=== PATIENT | female | born 1960 | race American Indian/Alaskan Native ===

== ENCOUNTER 2024-10-07 14:47 | Outpatient (AMB) | payer BC, SELFPAY ==
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
[2024-10-07 15:55] VITALS: BP 200/110; PULSE 79; RESP 16; TEMP 36.5; O2SAT 98; BMI 34.2
[2024-10-07 15:59] VITALS: BP 190/84
--- OUTSIDE RECORDS SUMMARY | 2024-10-07 18:13 | XMS_ITS | Encounter Summary ---
Author Organization [facility] and [facility] Address [address] [place] [phone] Care Team Providers Care Pooling Operator Name Role Phone Sal Jose MD Primary Care Provider [phone] Encounter Details Date Type Department Care Team (Late st Contact Info) Description 10/28/2023 Scanned Document [facility] at 800 [facility] 800 [place] [address] Joao Loredo MD 800 [place] [phone] Social History Tobacco Use Types Packs/Day Years Used Date Smoking Tobacco: Never Alcohol Use Standard Drinks/Week Comments Not Currently 0 (1 standard drink = 0.6 oz pur e alcohol) Comments Unknown Sex and Gender Information Value Date Recorded Sex Assigned at Not on file Legal Sex Female 7:18 AM EST Gender Identity Not on file Sexual Orientation Not on file documented as of this encounter Plan of Treatment Upcoming Encounters Date Type Department Care Team (Late Contact Info) Description 03/08/2025 12:00 PM EDT Follow Up Pulmonary Critical [place] 136 [facility] [address] [place], [place] [address] Ramon Nixon MD 136 [facility] 302 [place] [phone] 04/28/2025 1:45 PM EDT Follow Up [facility] Stroke 800 [place] [address] Kristine Kelly MD PhD 800 [place] [phone] 05/04/2025 1:00 PM EDT Follow Up Cardiovascular Medicine at 175 [facility] 175 [place] [address] Mike Hilario MD 175 [facility] 2 [place] [address] 07/20/2025 11:40 AM EST Follow Up Epilepsy & Seizures at 800 [facility] 800 [place] [address] Virgie Mast MD PhD 800 [place] [phone] documented as of this encounter Procedures Procedure Name Priority Date/Time Associated Diagnosis Comments CT RESULT SCAN Routine 02/15/2022 11:[address] RESULT SCAN Routine 02/15/2022 11:06 AM EDT MRI RESULT SCAN Routine 02/07/2022 11:23 AM EDT IR RESULT SCAN Routine 02/07/2022 11:[address] RESULT SCAN Routine 02/06/2022 11:[address] RESULT SCAN Routine 02/06/2022 11:26 AM EDT documented in this encounter Results * CT Result Scan (02/15/2022 11:09 AM EDT) Historical Provider IMG SCAN REPORTS Final Resul t * CT Result Scan (02/15/2022 11:06 AM EDT) Historical Provider IMG SCAN REPORTS Final Resul t * MRI Result Scan (02/07/2022 11:23 AM EDT) Historical Provider IMG SCAN REPORTS Final Resul t * IR Result Scan (02/07/2022 11:18 AM EDT) us Historical Provider IMG SCAN REPORTS Final Resul t * CT Result Scan (02/06/2022 11:32 AM EDT) us Historical Provider IMG SCAN REPORTS Final Resul t * CT Result Scan (02/06/2022 11:26 AM EDT) us Historical Provider IMG SCAN REPORTS Final Resul t documented in this encounter Visit Diagnoses Not on filedocumented in this encounter Care Teams Pooling Operator Relationship Specialty Start Date End Date Sal Jose MD [address] [phone] PCP - General Family Medicine 10/16/23 documented as of this encounter
--- OUTSIDE RECORDS SUMMARY | 2024-10-07 18:13 | XMS_ITS | Encounter Summary ---
Author Organization [facility] and [facility] Address [address] [place] [address] Care Team Providers Care Manager Client Support Name Role Phone Sal Jose MD Primary Care Provider [phone] Encounter Details Date Type Department Care Team (Late st Contact Info) Description 10/27/2023 Scanned Document CARE CENTER SCHEDULING [address] [place], [place] [address] Provider, Historical . [phone] (Fax) Social History Tobacco Use Types Packs/Day Years [...] Encounters Date Type Department Care Team (Late st Contact Info) Description 03/08/2025 12:00 PM EDT Follow Up Pulmonary Critical [place] 136 [facility] [address] [place] [address] Ramon Nixon MD 136 [facility] 302 [place] [phone] 04/28/2025 1:45 PM EDT Follow Up Stroke 800 [facility] [place] [address] Kristine Kelly MD PhD 800 [place] [phone] 05/04/2025 1:00 PM EDT Follow Up Cardiovascular Medicine at 175 [facility] 175 [place] [address] Mike Hilario MD 175 [facility] [address] [place] [phone] 07/20/2025 11:40 AM EST Follow Up Epilepsy & Seizures at 800 [facility] 800 [facility] [place] [address] Virgie Mast MD PhD 800 [place] [phone] documented as of this encounter Visit Diagnoses Not on filedocumented in this encounter Care Teams Manager Client Support Relationship Specialty Start Date End Date Sal Jose MD [facility] [address] [phone] PCP - General Family Medicine 10/16/23 documented as of this encounter
--- OUTSIDE RECORDS SUMMARY | 2024-10-07 18:13 | XMS_ITS | Encounter Summary ---
Author Organization [facility] Address Unknown Care Team Providers Care Formal Service Waiter Name Role Phone Sal Jose MD Primary Care Provider [phone] Encounter Details Date Type Department Care Team (Late st Contact Info) Description 08/27/2023 Scanned Document Pulmonary Critical [place] [address] [address] External, Provider Social History Tobacco Use Types Packs/Day Years Used Date Smoking Tobacco: Never Assessed Comments Unknown Sex and Gender Information Value Date Recorded Sex Assigned at Not on file Legal Sex Female 7:18 AM EST Gender Identity Not on file Sexual Orientation Not on file documented as of this encounter Plan of Treatment Upcoming Encounters Date Type Department Care Team (Late st Contact Info) Description 03/08/2025 12:00 PM EDT Follow Up Pulmonary Critical [place] 136 [facility] 302 [place] [address] Ramon Nixon MD 136 [facility] 302 [place] [phone] 04/28/2025 1:45 PM EDT Follow Up Stroke 800 [place] [address] Kristine Kelly MD PhD 800 [place] [phone] 05/04/2025 1:00 PM EDT Follow Up Cardiovascular Medicine at 175 [facility] 175 [facility] [place] [address] Mike Hilario MD 175 [facility] [address] 2 [place] [phone] 07/20/2025 11:40 AM EST Follow Up Epilepsy & Seizures at [address] [facility] [address] [facility] Lower [place], [place] [address] Virgie Mast MD PhD 800 [place] [phone] documented as of this encounter Procedures Procedure Name Priority Date/Time Associated Diagnosis Comments CARDIAC ECHO RESULT SCAN Routine 08/27/2023 documented in this encounter Results * Cardiac Echo Result Scan (08/27/2023) Provider External CV CARDIAC REPORT (CVR) Final Result documented in this encounter Visit Diagnoses Not on filedocumented in this encounter Care Teams Formal Service Waiter Relationship Specialty Start Date End Date Sal Jose MD 1033 [facility] [address] [place] [phone] PCP - General Family Medicine 10/16/23 documented as of this encounter
--- OUTSIDE RECORDS SUMMARY | 2024-10-07 18:13 | XMS_ITS | Encounter Summary ---
Author Organization [facility] and [facility] Address [address] [place] [address] Care Team Providers Care Inclusion Special Education Teacher Name Role Phone Sal Jose MD Primary Care Provider Encounter Details Date Type Department Care Team (Late st Contact Info) Description 08/14/2023 Transcribed Orders EXTERNAL REFERRAL SOURCE 20 [place] [address] Referral, Self Social History Tobacco Use Types Packs/Day Years [...] EDT Follow Up Pulmonary Critical [place] 136 [facility] 302 [place] [address] Ramon Nixon MD 136 [facility] 302 [place] [phone] 04/28/2025 1:45 PM EDT Follow Up Stroke 800 [place] [address] Kristine Kelly MD PhD 800 [place] [phone] 05/04/2025 1:00 PM EDT Follow Up Cardiovascular Medicine at 175 [facility] 175 [place], [place] [address] Mike Hilario MD 175 [facility] 2 [place] [phone] 07/20/2025 11:40 AM EST Follow Up Epilepsy & Seizures at 800 [facility] 800 [facility] Lower [place], [place] [address] Virgie Mast MD PhD 800 [place] [phone] documented as of this encounter Visit Diagnoses Not on filedocumented in this encounter Care Teams Inclusion Special Education Teacher Relationship Specialty Start Date End Date Sal Jose MD [address] [place] [phone] PCP - General Family Medicine 10/16/23 documented as of this encounter
--- OUTSIDE RECORDS SUMMARY | 2024-10-07 18:13 | XMS_ITS | Encounter Summary ---
Author Organization [facility] and [facility] Address [address] [place] [phone] Care Team Providers Care Counter Stitcher Name Role Phone Sal Jose MD Primary Care Provider [phone] Encounter Details Date Type Department Care Team (Late st Contact Info) Description 10/28/2023 Scanned Document CARE CENTER SCHEDULING 25 [place], [place] [phone] Provider, Historical . [phone] (Fax) Social History Tobacco Use Types Packs/Day [...] EDT Follow Up Pulmonary Critical [place] 136 [facility] [address] [place] [address] Ramon Nixon MD 136 [facility] [address] 302 [place] [phone] 04/28/2025 1:45 PM EDT Follow Up Stroke 800 [facility] [place] [address] Kristine Kelly MD PhD 800 [place] [address] 05/04/2025 1:00 PM EDT Follow Up Cardiovascular Medicine at 175 [facility] 175 [facility] [place] [address] Mike Hilario MD 175 [facility] [address] [place] [phone] 07/20/2025 11:40 AM EST Follow Up Epilepsy & Seizures at 800 [facility] 800 [facility] [place] [address] Virgie Mast MD PhD 800 [facility] [place], [place] [phone] documented as of this encounter Procedures Procedure Name Priority Date/Time Associated Diagnosis Comments MRI RESULT SCAN Routine 03/03/2023 10:48 AM EDT MRI RESULT SCAN Routine 11/25/2022 10:55 AM EDT MRI RESULT SCAN Routine 02/16/2022 10:58 AM EDT documented in this encounter Results * MRI Result Scan (03/03/2023 10:48 AM EDT) Historical Provider IMG SCAN REPORTS Final Resul t * MRI Result Scan (11/25/2022 10:55 AM EDT) Historical Provider IMG SCAN REPORTS Final Resul t * MRI Result Scan (02/16/2022 10:58 AM EDT) us Historical Provider IMG SCAN REPORTS Final Resul t documented in this encounter Visit Diagnoses Not on filedocumented in this encounter Care Teams Counter Stitcher Relationship Specialty Start Date End Date Sal Jose MD 1033 [facility] [address] [place] [phone] PCP - General Family Medicine 10/16/23 documented as of this encounter
--- OUTSIDE RECORDS SUMMARY | 2024-10-07 18:13 | XMS_ITS | Encounter Summary ---
Author Organization [facility] and [facility] Address [address] [place] [phone] Care Team Providers Care Aviation Project Manager Name Role Phone Sal Jose MD Primary Care Provider [phone] Encounter Details Date Type Department Care Team (Late st Contact Info) Description 10/17/2023 Scanned Document [facility] 800 [place] [address] Kristine Kelly MD PhD 800 [place] [phone] Social History Tobacco Use Types Packs/Day Years [...] EDT Follow Up Pulmonary Critical [place] 136 [facility] 302 [place], [place] [address] Ramon Nixon MD 136 [facility] 302 [place] [address] 04/28/2025 1:45 PM EDT Follow Up [facility] Stroke 800 [place] [address] Kristine Kelly MD PhD 800 [place] [address] 05/04/2025 1:00 PM EDT Follow Up Cardiovascular Medicine at 175 [facility] 175 [place], [place] [address] Mike Hilario MD 175 [facility] 2 [place] [address] 07/20/2025 11:40 AM EST Follow Up Epilepsy & Seizures at 800 [facility] 800 [facility] [place] [address] Virgie Mast MD PhD 800 [place] [phone] documented as of this encounter Visit Diagnoses Not on filedocumented in this encounter Care Teams Aviation Project Manager Relationship Specialty Start Date End Date Sal Jose MD [facility] [address] [phone] PCP - General Family Medicine 10/16/23 documented as of this encounter
--- OUTSIDE RECORDS SUMMARY | 2024-10-07 18:13 | XMS_ITS | Encounter Summary ---
Author Organization [facility] and [facility] Address 20 [place] [address] Care Team Providers Care Drilling Field Specialist Name Role Phone Sal Jose MD Primary Care Provider Encounter Details Date Type Department Care Team (Late st Contact Info) Description 08/13/2023 Scanned Document EXTERNAL REFERRAL SOURCE 20 [place] [address] External, Provider Social History Tobacco Use Types [...] EDT Follow Up [place]monary Critical [place] 136 [facility] 302 [place] [address] Ramon Nixon MD 136 [facility] 302 [place] [address] 04/28/2025 1:45 PM EDT Follow Up Stroke 800 [place] [address] Kristine Kelly MD PhD 800 [place] [phone] 05/04/2025 1:00 PM EDT Follow Up Cardiovascular Medicine at 175 [facility] 175 [place], [place] [address] Mike Hilario MD 175 [facility] 2 [place] [phone] 07/20/2025 11:40 AM EST Follow Up Epilepsy & Seizures at 800 [facility] 800 [facility] Lower [place], [place] [address] Virgie Mast MD PhD 800 [place] [phone] documented as of this encounter Visit Diagnoses Not on filedocumented in this encounter Care Teams Drilling Field Specialist Relationship Specialty Start Date End Date Sal Jose MD [address] [place] [phone] PCP - General Family Medicine 10/16/23 documented as of this encounter
--- OUTSIDE RECORDS SUMMARY | 2024-10-07 18:13 | XMS_ITS | Encounter Summary ---
Author Organization [facility] and [facility] Address [address] [place] [phone] Care Team Providers Care Dispatch Officer Name Role Phone Sal Jose MD Primary Care Provider [phone] Encounter Details Date Type Department Care Team (Late st Contact Info) Description 10/28/2023 Scanned Document [facility] Neurosurgery at 800 [facility] 800 [place] [address] Joao Loredo MD 800 [place] [phone] Social History Tobacco Use Types Packs/Day Years [...] EDT Follow Up Pulmonary Critical [place] 136 [facility] [address] [place], [place] [address] Ramon Nixon MD 136 [facility] 302 [place] [address] 04/28/2025 1:45 PM EDT Follow Up [facility] Stroke [address] [place] [address] Kristine Kelly MD PhD 800 [place] [address] 05/04/2025 1:00 PM EDT Follow Up Cardiovascular Medicine at 175 [facility] 175 [place] [address] Mike Hilario MD 175 [facility] 2 [place] [address] 07/20/2025 11:40 AM EST Follow Up Epilepsy & Seizures at 800 [facility] 800 [place] [address] Virgie Mast MD PhD 800 [place] [phone] documented as of this encounter Visit Diagnoses Not on filedocumented in this encounter Care Teams Dispatch Officer Relationship Specialty Start Date End Date Sal Jose MD [address] [phone] PCP - General Family Medicine 10/16/23 documented as of this encounter
--- OUTSIDE RECORDS SUMMARY | 2024-10-07 18:13 | XMS_ITS | Encounter Summary ---
Author Organization [facility] and [facility] Address [address] [place] [phone] Care Team Providers Care Electrical Plumbing Supervisor Name Role Phone Sal Jose MD Primary Care Provider Encounter Details Date Type Department Care Team (Late st Contact Info) Description 10/28/2023 Scanned Document [facility] at 800 [facility] 800 [place] [address] Joao Loredo MD 800 [place] [phone] Social History Tobacco Use Types Packs/Day Years [...] EDT Follow Up Pulmonary Critical [place] 136 [facility] [address] [place], [place] [address] Ramon Nixon MD 136 [facility] 302 [place] [address] 04/28/2025 1:45 PM EDT Follow Up [facility] Stroke 800 [facility] [place] [address] Kristine Kelly MD PhD [address] [place] [address] 05/04/2025 1:00 PM EDT Follow Up Cardiovascular Medicine at 175 [facility] 175 [place] [address] Mike Hilario MD 175 [facility] 2 [place] [address] 07/20/2025 11:40 AM EST Follow Up Epilepsy & Seizures at 800 [facility] 800 [place] [address] Virgie Mast MD PhD [address] [place] [address] documented as of this encounter Procedures Procedure Name Priority Date/Time Associated Diagnosis Comments CT RESULT SCAN Routine 07/21/2023 1:[address] RESULT SCAN Routine 05/17/2021 11:42 AM EDT MRI RESULT SCAN Routine 05/12/2020 11:48 AM EDT MRI RESULT SCAN Routine 04/12/2020 12:01 PM EDT MRI RESULT SCAN Routine 04/12/2020 11:55 AM EDT MRI RESULT SCAN Routine 04/08/2020 12:[address] RESULT SCAN Routine 02/25/2020 12:11 PM EDT MRI RESULT SCAN Routine 02/01/2020 12:[address] RESULT SCAN Routine 12/25/2018 12:[address] RESULT SCAN Routine 08/25/2015 12:[address] RESULT SCAN Routine 09/28/2012 12:[address] RESULT SCAN Routine 09/07/2012 12:[address] RESULT SCAN Routine 02/13/2012 12:[address] RESULT SCAN Routine 12/17/2010 1:[address] RESULT SCAN Routine 12/17/2010 1:[address] RESULT SCAN Routine 12/17/2010 12:[address] RESULT SCAN Routine 12/17/2010 12:[address] RESULT SCAN Routine 12/17/2010 12:[address] RESULT SCAN Routine 12/17/2010 12:41 PM EDT documented in this encounter Results * CT Result Scan (07/21/2023 1:08 PM EST) Historical Provider IMG SCAN REPORTS Final Resul t * CT Result Scan (05/17/2021 11:42 AM EDT) Historical Provider IMG SCAN REPORTS Final Resul t * MRI Result Scan (05/12/2020 11:48 AM EDT) Historical Provider IMG SCAN REPORTS Final Resul t * MRI Result Scan (04/12/2020 12:01 PM EDT) [facility] Provider IMG SCAN REPORTS Final Resul t * MRI Result Scan (04/12/2020 11:55 AM EDT) Historical Provider IMG SCAN REPORTS Final Resul t * MRI Result Scan (04/08/2020 12:04 PM EDT) [facility] Provider IMG SCAN REPORTS Final Resul t * CT Result Scan (02/25/2020 12:11 PM EDT) Historical Provider IMG SCAN REPORTS Final Resul t * MRI Result Scan (02/01/2020 12:16 PM EDT) Historical Provider IMG SCAN REPORTS Final Resul t * CT Result Scan (12/25/2018 12:21 PM EDT) Historical Provider IMG SCAN REPORTS Final Resul t * CT Result Scan (08/25/2015 12:26 PM EST) Historical Provider IMG SCAN REPORTS Final Resul t * CT Result Scan (09/28/2012 12:30 PM EST) [facility] Provider IMG SCAN REPORTS Final Resul t * CT Result Scan (09/07/2012 12:34 PM EST) [facility] Provider IMG SCAN REPORTS Final Resul t * CT Result Scan (02/13/2012 12:38 PM EDT) Historical Provider IMG SCAN REPORTS Final Resul t * CT Result Scan (12/17/2010 1:03 PM EDT) [facility] Provider IMG SCAN REPORTS Final Resul t * CT Result Scan (12/17/2010 1:00 PM EDT) [facility] Provider IMG SCAN REPORTS Final Resul t * CT Result Scan (12/17/2010 12:56 PM EDT) Result [facility] Provider IMG SCAN REPORTS Final Resul t * CT Result Scan (12/17/2010 12:52 PM EDT) Result [facility] Provider IMG SCAN REPORTS Final Resul t * CT Result Scan (12/17/2010 12:46 PM EDT) [facility] Provider IMG SCAN REPORTS Final Resul t * CT Result Scan (12/17/2010 12:41 PM EDT) Historical Provider IMG SCAN REPORTS Final Resul t documented in this encounter Visit Diagnoses Not on filedocumented in this encounter Care Teams Electrical Plumbing Supervisor Relationship Specialty Start Date End Date Sal Jose MD [address] [phone] PCP - General Family Medicine 10/16/23 documented as of this encounter
--- OUTSIDE RECORDS SUMMARY | 2024-10-07 18:14 | XMS_ITS | Encounter Summary ---
Author Organization [facility] Address [address] [phone] Phone Care Team Providers Care Mop Man Name Role Phone Sal Jose MD Primary Care Provider [phone] Reason for Visit * Reason Onset Date Comments Appointment 08/25/2024 Missed Study Encounter Details Date Type Department Care Team ([facility] st Contact Info) Description 08/25/2024 Telephone [facility] - [address] [address] Nain Cat MD [address] [place] [phone] Appointment (Missed Study ) Social History Tobacco Use Types Packs/Day Years Used Date Smoking Tobacco: Never Alcohol Use Standard Drinks/Week Comments Not Currently 0 (1 standard drink = 0.6 oz pur e alcohol) PHQ-2 Answer Date Recorded PHQ-2 Total Score 0 04/07/2024 Interpersonal Safety Answer Date Record ed Is there anyone in your life that is hurting or threatening you in anyway? no 03/07/2024 Physical Indicators of Abuse No evidence of phys ical abuse 03/07/2024 Comments Unknown Sex and Gender Information Value Date Recorded Sex Assigned at Not on file Legal Sex Female 7:18 AM EST Gender Identity Not on file Sexual Orientation Not on file documented as of this encounter Miscellaneous Notes * Telephone Encounter - Samantha Wiggins - 08/25/2024 1:32 PM EST Attempted to call to r/s missed study. PT VM full documented in this encounter Plan of Treatment Upcoming Encounters Date Type Department Care Team (Late st Contact Info) Description 03/08/2025 12:00 PM EDT Follow Up Pulmonary Critical [place] 136 [facility] [address] [place] [address] Ramon Nixon MD 136 [facility] 302 [place] [address] 04/28/2025 1:45 PM EDT Follow Up Stroke 800 [place] [address] Kristine Kelly MD PhD 800 [place] [address] 05/04/2025 1:00 PM EDT Follow Up Cardiovascular Medicine at 175 [facility] 175 [place] [address] Mike Hilario MD 175 [facility] 2 [place] [address] 07/20/2025 11:40 AM EST Follow Up Epilepsy & Seizures at 800 [facility] 800 [place] [address] Virgie Mast MD PhD 800 [place] [address] documented as of this encounter Visit Diagnoses Not on filedocumented in this encounter Additional Health Concerns Assessment Noted Time PHQ-9 Depression Total Score: 0 04/07/20 24 2:31 PM EDT documented as of this encounter Care Teams Mop Man Relationship Specialty Start Date End Date Sal Jose MD [address] [phone] PCP - General Family Medicine 10/16/23 documented as of this encounter
--- OUTSIDE RECORDS SUMMARY | 2024-10-07 18:14 | XMS_ITS | Encounter Summary ---
Author Organization [facility] Address Unknown Care Team Providers Care Step Down Specialist Name Role Phone Sal Jose MD Primary Care Provider [phone] Encounter Details Date Type Department Care Team (Late st Contact Info) Description 05/11/2024 Scanned Document Pulmonary Critical [place] 136 [facility] 302 [place], [place] [address] Ramon Nixon MD 136 [facility] 302 [place] [phone] Social History Tobacco Use Types Packs/Day Years [...] EDT Follow Up Pulmonary Critical [place] 136 [facility] [address] [place], [place] [phone] Ramon Nixon MD 136 [facility] 302 [place] [address] 04/28/2025 1:45 PM EDT Follow Up Stroke 800 [place] [address] Kristine Kelly MD PhD 800 [place] [phone] 05/04/2025 1:00 PM EDT Follow Up Cardiovascular Medicine at 175 [facility] 175 [place] [address] Mike Hilario MD 175 [facility] 2 [place] [address] 07/20/2025 11:40 AM EST Follow Up Epilepsy & Seizures at 800 [facility] 800 [place] [address] Virgie Mast MD PhD 800 [place] [phone] documented as of this encounter Visit Diagnoses Not on filedocumented in this encounter Additional Health Concerns Assessment Noted Time PHQ-9 Depression Total Score: 0 04/07/20 2:31 PM EDT documented as of this encounter Care Teams Step Down Specialist Relationship Specialty Start Date End Date Sal Jose MD [facility] [address] [phone] PCP - General Family Medicine 10/16/23 documented as of this encounter
--- OUTSIDE RECORDS SUMMARY | 2024-10-07 18:14 | XMS_ITS | Encounter Summary ---
Author Organization [facility] Address [address] [phone] Phone Care Team Providers Care Private Security Guard Name Role Phone Sal Jose MD Primary Care Provider Encounter Details Date Type Department Care Team (Late Contact Info) Description 05/25/2024 Scanned Document [facility] - [address] [phone] Nain Cat MD [address] [place] [phone] Social History Tobacco Use Types Packs/Day Years [...] 12:00 PM EDT Follow Up Pulmonary Critical [address] [address] Ramon Nixon MD 136 [facility] 302 [place] [address] 04/28/2025 1:45 PM EDT Follow Up Stroke 800 [place] [address] Kristine Kelly MD PhD 800 [place] [phone] 05/04/2025 1:00 PM EDT Follow Up Cardiovascular Medicine at 175 [facility] 175 [place] [address] Mike Hilario MD 175 [facility] 2 [place] [phone] 07/20/2025 11:40 AM EST Follow Up Epilepsy & Seizures at 800 [facility] 800 [place] [address] Virgie Mast MD PhD 800 [place] [address] documented as of this encounter Visit Diagnoses Not on filedocumented in this encounter Additional Health Concerns Assessment Noted Time PHQ-9 Depression Total Score: 0 04/07/20 2:31 PM EDT documented as of this encounter Care Teams Private Security Guard Relationship Specialty Start Date End Date Sal Jose MD [address] [place] [phone] PCP - General Family Medicine 10/16/23 documented as of this encounter
--- OUTSIDE RECORDS SUMMARY | 2024-10-07 18:14 | XMS_ITS | Encounter Summary ---
Author Organization [facility] and [facility] Address [address] [place] [phone] Care Team Providers Care Fagoting Machine Operator Name Role Phone Sal Jose MD Primary Care Provider Reason for Visit * Reason Onset Date Comments Holter/Event Monitor 11/13/2023 Trying to E nroll Pt for MCT monitor Encounter Details Date Type Department Care Team (Late st Contact Info) Description 11/13/2023 Telephone [facility] Stroke 800 [place], [place] [address] Kristine Kelly MD PhD 800 [place] [phone] Holter/Event Monitor (Trying to Enroll Pt for MCT monitor) Social History Tobacco Use Types Packs/Day Years [...] encounter Miscellaneous Notes * Telephone Encounter - Kristine Kelly MD PhD - 11/22/2023 8:19 AM EDT Nohemy Christopher. Thanks for following up with Ms. Mercedes regarding the ambulatory telemetry. I willkeep an eye out for the results. * Telephone Encounter - Kristine Kelly MD PhD - 11/14/2023 9:30 PM EDT Nohemy Christopher. I've only seen Ms. Mercedes once, last month, and she was alone, so I'm unsure whom else to contact about the outpatient telemetry if she has no other phones listed. Perhaps MyChart? If all else fails, I will remind her and re-order it when she follows up with me. Thanks. * Telephone Encounter - Nohemy Arroyo - 11/13/2023 9:15 AM EDTSummary: Trying to Enroll Pt for MCT monitor/ Mailbox Full Good Morning, we have tried to get in touch with patient for weeks since last month and mailbox is full. So can't leave a voicemail, for patient to call back. I don't see another number to call patient. Please Advise. Thank you. Called PT & VM is full - 10/15/2013 AD I called and VM is Full. TA 10/22/23. I called and VM is Full. TA 11/05/23. documented in this encounter Plan of Treatment Upcoming Encounters Date Type Department Care Team (Late st Contact Info) Description 03/08/2025 12:00 PM EDT Follow Up Pulmonary Critical [place] 136 [facility] 302 [place] [address] Ramon Nixon MD 136 [facility] 302 [place] [phone] 04/28/2025 1:45 PM EDT Follow Up [facility] Stroke 800 [place] [address] Kristine eKlly MD PhD 800 [place] [phone] 05/04/2025 1:00 PM EDT Follow Up Cardiovascular Medicine at 175 [facility] 175 [facility], [place] [address] Mike Hilario MD 175 [facility] [address] 2 [place] [address] 07/20/2025 11:40 AM EST Follow Up Epilepsy & Seizures at 800 [facility] 800 [facility] [place] [address] Virgie Mast MD PhD 800 [place] [phone] documented as of this encounter Visit Diagnoses Not on filedocumented in this encounter Care Teams Fagoting Machine Operator Relationship Specialty Start Date End Date Sal Jose MD [facility] [address] [phone] PCP - General Family Medicine 10/16/23 documented as of this encounter
--- OUTSIDE RECORDS SUMMARY | 2024-10-07 18:14 | XMS_ITS ---
Author Name [facility] Organization Unknown Results Test Name/Text Value Interpretation Date Range Source Anion Gap3 SerPl-sCnc 13 Normal 7 - 1 7 [facility] CREATININE DELTA 0.01 Normal - [facility] Creat SerPl-mCnc 0.72mg/dL Normal 0.4 - 1.3 [facility] Albumin/Glob SerPl 1.8 Normal 1 - 2.2 [facility] Albumin SerPl BCG-mCnc 4.3g/dL Normal 3.6 - 5.1 [facility] ALT SerPl w/o P-5'-P-cCnc 27U/L Normal 10 - 35 [facility] Potassium SerPl-sCnc 4.2mmol/L Normal 3.3 - 5.3 [facility] Bilirub SerPl-mCnc 0.6mg/dL Normal - [facility] Calcium SerPl-mCnc 9.7mg/dL Normal 8.8 - 10 .2 [facility] AST/ALT SerPl-cRto 0.9 Normal - [facility] BUN SerPl-mCnc 13mg/dL Normal 8 - 23 [facility] ALP SerPl-cCnc 113U/L Normal 9 - 122 [facility] HCO3 SerPl-sCnc 26mmol/L Normal 20 - 30 [facility] Chloride SerPl-sCnc 105mmol/L Normal 98 - 10 7 [facility] BUN/Creat SerPl 18.1 Normal 8 - 23 [facility] AST SerPl w P-5'-P-cCnc 23U/L Normal 10 - 35 [facility] GFR/BSA.pred SerPlBld VTV-XJZ-MvCGey 60mL/min/1.73m 2 Normal - [facility] Globulin Plas-mCnc 2.4g/dL Normal 2 - 3.9 [facility] Prot SerPl-mCnc 6.7g/dL Normal 5.9 - 8.3 [facility] Sodium SerPl-sCnc 144mmol/L Normal 136 - 144 [facility] Glucose SerPl-mCnc 89mg/dL Normal 70 - 100 [facility] ESR Bld Qn 12mm/hr Normal 0 - 20 [facility] T Monocytes # Bld Auto 0.14k5251/uL Normal 0 - 1 [facility] nRBC/100 WBC Bld Auto-Rto 0% Normal 0 - 1 [facility] Eosinophil # Bld Auto 0.97d6546/uL Normal 0 - 1 [facility] nRBC # Bld Auto 9m7020/uL Normal 0 - 1 [facility] Neutrophils # Bld Auto 4.56r0386/uL Normal 2 - 7.6 [facility] MCHC RBC Auto-mCnc 32.8g/dL Normal 31 - 36 [facility] Monocytes/leuk NFr Bld Auto 8% Normal 4 - 12 [facility] Basophils # Bld Auto 0.42k1953/uL Normal 0 - 1 [facility] WBC # Bld Auto 7.2v3189/uL Normal 4 - 11 [facility] Hct VFr Bld Auto 38.7% Normal 35 - 45 [facility] RDW RBC Auto-Rto 14% Normal 11 - 15 [facility] PMV Bld Auto 11.1fL Normal 8 - 12 [facility] Eosinophil/leuk NFr Bld Auto 1.8% Normal 0 - 5 [facility] MCH RBC Qn Auto 29.9pg Normal 27 - 33 [facility] Basophils/leuk NFr Bld Auto 0.8% Normal 0 - 1.4 [facility] Lymphocytes # Bld Auto 2.76v9225/uL Normal 0.6 - 3.7 [facility] RBC # Bld Auto 4.25M/uL Normal 4 - 6 [facility] Neutrophils/leuk NFr Bld Auto 61.4% Normal 39 - 72 [facility] Imm Granulocytes # Bld Auto 0.61f8997/uL Normal 0 - 0.3 [facility] Platelet # Bld Auto 460s5654/uL Normal 150 - 420 [facility] MCV RBC Auto 91.1fL Normal 80 - 100 [facility] Lymphocytes/leuk NFr Bld Auto 27.6% Normal 17 - 50 [facility] Imm Granulocytes/leuk NFr Bld Auto 0.4% Normal 0 - 1 [facility] Hgb Bld-mCnc 12.7g/dL Normal 11.7 - 15.5 [facility] Anion Gap3 SerPl-sCnc 12 Normal [id number] 7 - 1 7 [facility] Creat SerPl-mCnc 0.71mg/dL Normal 0.4 - 1.3 [facility] Albumin/Glob SerPl 1.7 Normal 1 - 2.2 [facility] Albumin SerPl BCG-mCnc 4.3g/dL Normal 3.6 - 5.1 [facility] ALT SerPl w/o P-5'-P-cCnc 17U/L Normal [id number] 10 - 35 [facility] Potassium SerPl-sCnc 4.2mmol/L Normal 3.3 - 5.3 [facility] Bilirub SerPl-mCnc 0.5mg/dL Normal [id number] - [facility] Calcium SerPl-mCnc 9.7mg/dL Normal [id number] 8.8 - 10 .2 [facility] AST/ALT SerPl-cRto 1.1 Normal [id number] - [facility] BUN SerPl-mCnc 12mg/dL Normal [id number] 8 - 23 [facility] ALP SerPl-cCnc 109U/L Normal 881099707385 9 - 122 [facility] HCO3 SerPl-sCnc 26mmol/L Normal [id number] 20 - 30 [facility] Chloride SerPl-sCnc 106mmol/L Normal [id number] 98 - 10 7 [facility] BUN/Creat SerPl 16.9 Normal [id number] 8 - 23 [facility] AST SerPl w P-5'-P-cCnc 19U/L Normal 814258023615 10 - 35 [facility] GFR/BSA.pred SerPlBld SMT-XXW-ExSXma 60mL/min/1.73m 2 Normal 595501234519 - [facility] Globulin Plas-mCnc 2.5g/dL Normal [id number] 2 - 3.9 [facility] Prot SerPl-mCnc 6.8g/dL Normal [id number] 5.9 - 8.3 [facility] Sodium SerPl-sCnc 144mmol/L Normal [id number] 136 - 144 [facility] Glucose SerPl-mCnc 94mg/dL Normal [id number] 70 - 100 [facility] ESR Bld Qn 4mm/hr Normal [id number] 0 - 20 [facility] T Monocytes # Bld Auto 0.61b6459/uL Normal [id number] 0 - 1 [facility] nRBC/100 WBC Bld Auto-Rto 0% Normal 0 - 1 [facility] Eosinophil # Bld Auto 0.54a5728/uL Normal 804920673602 0 - 1 [facility] nRBC # Bld Auto 3p2558/uL Normal 0 - 1 [facility] Neutrophils # Bld Auto 4.07v9877/uL Normal [id number] 2 - 7.6 [facility] MCHC RBC Auto-mCnc 32g/dL Normal 602751667944 31 - 36 [facility] Monocytes/leuk NFr Bld Auto 9.7% Normal [id number] 4 - 12 [facility] Basophils # Bld Auto 0.48h6710/uL Normal [id number] 0 - 1 [facility] WBC # Bld Auto 7.2x1883/uL Normal 651744291527 4 - 11 [facility] Hct VFr Bld Auto 41% Normal [id number] 35 - 45 [facility] RDW RBC Auto-Rto 13.7% Normal 778155802236 11 - 15 [facility] PMV Bld Auto 10.7fL Normal 201423021453 8 - 12 [facility] Eosinophil/leuk NFr Bld Auto 2% Normal 306311747529 0 - 5 [facility] MCH RBC Qn Auto 29pg Normal 028267706947 27 - 33 [facility] Basophils/leuk NFr Bld Auto 0.7% Normal [id number] 0 - 1.4 [facility] Lymphocytes # Bld Auto 2.16s0299/uL Normal [id number] 0.6 - 3.7 [facility] RBC # Bld Auto 4.51M/uL Normal 741008561601 4 - 6 [facility] Neutrophils/leuk NFr Bld Auto 60% Normal 050363948038 39 - 72 [facility] Imm Granulocytes # Bld Auto 0.49b6296/uL Normal [id number] 0 - 0.3 [facility] Platelet # Bld Auto 250p6299/uL Normal [id number] 150 - 420 [facility] MCV RBC Auto 90.9fL Normal [id number] 80 - 100 [facility] Lymphocytes/leuk NFr Bld Auto 27.3% Normal [id number] 17 - 50 [facility] Imm Granulocytes/leuk NFr Bld Auto 0.3% Normal [id number] 0 - 1 [facility] Hgb Bld-mCnc 13.1g/dL Normal [id number] 11.7 - 15.5 [facility] CRP SerPl HS-mCnc 3.1mg/L Above high normal 670657549789 - [facility] Anion Gap3 SerPl-sCnc 13 Normal 835708156554 7 - 1 7 [facility] Creat SerPl-mCnc 0.71mg/dL Normal 0.4 - 1.3 [facility] Albumin/Glob SerPl 1.5 Normal 310204966583 1 - 2.2 [facility] Albumin SerPl BCG-mCnc 4.2g/dL Normal 560806347811 3.6 - 5.1 [facility] ALT SerPl w/o P-5'-P-cCnc 18U/L Normal [id number] 10 - 35 [facility] Potassium SerPl-sCnc 3.8mmol/L Normal [id number] 3.3 - 5.3 [facility] Bilirub SerPl-mCnc 0.5mg/dL Normal 947464341383 - [facility] Calcium SerPl-mCnc 9.5mg/dL Normal 166286496290 8.8 - 10 .2 [facility] AST/ALT SerPl-cRto 1.3 Normal 337704131323 - [facility] BUN SerPl-mCnc 9mg/dL Normal 548292087786 8 - 23 [facility] ALP SerPl-cCnc 105U/L Normal 068231882529 9 - 122 [facility] HCO3 SerPl-sCnc 24mmol/L Normal [id number] 20 - 30 [facility] Chloride SerPl-sCnc 105mmol/L Normal 012035410206 98 - 10 7 [facility] BUN/Creat SerPl 12.7 Normal [id number] 8 - 23 [facility] AST SerPl w P-5'-P-cCnc 23U/L Normal [id number] 10 - 35 [facility] GFR/BSA.pred SerPlBld DBS-KUS-WcOLin 60mL/min/1.73m 2 Normal 475646150308 - [facility] Globulin Plas-mCnc 2.8g/dL Normal 064097885088 2 - 3.9 [facility] Prot SerPl-mCnc 7g/dL Normal 466188861451 5.9 - 8.3 [facility] Sodium SerPl-sCnc 142mmol/L Normal 757761505185 136 - 144 [facility] Glucose SerPl-mCnc 99mg/dL Normal 500288768750 70 - 100 [facility] ESR Bld Qn 24mm/hr Above high normal [id number] 0 - 20 [facility] Monocytes # Bld Auto 0.23t2706/uL Normal 519874287584 0 - 1 [facility] nRBC/100 WBC Bld Auto-Rto 0% Normal 854824301273 0 - 1 [facility] Eosinophil # Bld Auto 0.82i2071/uL Normal 039090371560 0 - 1 [facility] nRBC # Bld Auto 9u7978/uL Normal 085719792147 0 - 1 [facility] Neutrophils # Bld Auto 4.52h7122/uL Normal 579483075616 2 - 7.6 [facility] MCHC RBC Auto-mCnc 31.9g/dL Normal [id number] 31 - 36 [facility] Monocytes/leuk NFr Bld Auto 9.7% Normal 205429908862 4 - 12 [facility] Basophils # Bld Auto 0.43r7350/uL Normal 599750403236 0 - 1 [facility] WBC # Bld Auto 7.6b1942/uL Normal 046824975143 4 - 11 [facility] Hct VFr Bld Auto 41.7% Normal 222539670520 35 - 45 [facility] RDW RBC Auto-Rto 13.6% Normal [id number] 11 - 15 [facility] PMV Bld Auto 10.9fL Normal 853162029103 8 - 12 [facility] Eosinophil/leuk NFr Bld Auto 2.4% Normal 803471909103 0 - 5 [facility] MCH RBC Qn Auto 28.8pg Normal 265939836960 27 - 33 [facility] Basophils/leuk NFr Bld Auto 0.8% Normal 505085113651 0 - 1.4 [facility] Lymphocytes # Bld Auto 1.18l7542/uL Normal [id number] 0.6 - 3.7 [facility] RBC # Bld Auto 4.62M/uL Normal 056960239544 4 - 6 [facility] Neutrophils/leuk NFr Bld Auto 62.6% Normal 359807291035 39 - 72 [facility] Imm Granulocytes # Bld Auto 0.14i9846/uL Normal 805018213174 0 - 0.3 [facility] Platelet # Bld Auto 091b3795/uL Normal [id number] 150 - 420 [facility] MCV RBC Auto 90.3fL Normal [id number] 80 - 100 [facility] Lymphocytes/leuk NFr Bld Auto 24.4% Normal 361432784503 17 - 50 [facility] Imm Granulocytes/leuk NFr Bld Auto 0.1% Normal [id number] 0 - 1 [facility] Hgb Bld-mCnc 13.3g/dL Normal [id number] 11.7 - 15.5 [facility] Anion Gap3 SerPl-sCnc 13 Normal [id number] 7 - 1 7 [facility] Creat SerPl-mCnc 0.75mg/dL Normal [id number] 0.4 - 1.3 [facility] Albumin/Glob SerPl 1.3 Normal 543130886377 1 - 2.2 [facility] Albumin SerPl BCG-mCnc 4.3g/dL Normal 716002103734 3.6 - 5.1 [facility] ALT SerPl w/o P-5'-P-cCnc 16U/L Normal [id number] 10 - 35 [facility] Potassium SerPl-sCnc 4.3mmol/L Normal 977904101157 3.3 - 5.3 [facility] Bilirub SerPl-mCnc 0.5mg/dL Normal 984789919570 - [facility] Calcium SerPl-mCnc 9.7mg/dL Normal [id number] 8.8 - 10 .2 [facility] AST/ALT SerPl-cRto 1.1 Normal 583503075942 - [facility] BUN SerPl-mCnc 15mg/dL Normal 840052120972 8 - 23 [facility] ALP SerPl-cCnc 122U/L Normal 279147574339 9 - 122 [facility] HCO3 SerPl-sCnc 25mmol/L Normal [id number] 20 - 30 [facility] Chloride SerPl-sCnc 103mmol/L Normal 637738828959 98 - 10 7 [facility] BUN/Creat SerPl 20 Normal [id number] 8 - 23 [facility] AST SerPl w P-5'-P-cCnc 17U/L Normal [id number] 10 - 35 [facility] GFR/BSA.pred SerPlBld WAI-JDK-EjBWkr 60mL/min/1.73m 2 Normal 134230926103 - [facility] Globulin Plas-mCnc 3.2g/dL Normal 601884342884 2 - 3.9 [facility] Prot SerPl-mCnc 7.5g/dL Normal 989361085181 5.9 - 8.3 [facility] Sodium SerPl-sCnc 141mmol/L Normal 857094973731 136 - 144 [facility] Glucose SerPl-mCnc 107mg/dL Above high normal 729892347645 70 - 100 [facility] CRP SerPl HS-mCnc 6.3mg/L Above high normal 932782711470 - [facility] ESR Bld Qn 23mm/hr Above high normal 857615592893 0 - 20 [facility] Monocytes # Bld Auto 0.39p5257/uL Normal 182920865047 0 - 1 [facility] nRBC/100 WBC Bld Auto-Rto 0% Normal 813204928029 0 - 1 [facility] Eosinophil # Bld Auto 0.68j6852/uL Normal 600329596976 0 - 1 [facility] nRBC # Bld Auto 3n8602/uL Normal 799724541131 0 - 1 [facility] Neutrophils # Bld Auto 5.99h5445/uL Normal [id number] 2 - 7.6 [facility] MCHC RBC Auto-mCnc 32.1g/dL Normal 043363561323 31 - 36 [facility] Monocytes/leuk NFr Bld Auto 7.4% Normal 627940585787 4 - 12 [facility] Basophils # Bld Auto 0.12o1595/uL Normal 189786150133 0 - 1 [facility] WBC # Bld Auto 7q5016/uL Normal [id number] 4 - 11 [facility] Hct VFr Bld Auto 41.4% Normal [id number] 35 - 45 [facility] RDW RBC Auto-Rto 13.7% Normal 734044291791 11 - 15 [facility] PMV Bld Auto 11.2fL Normal 970203914030 8 - 12 [facility] Eosinophil/leuk NFr Bld Auto 1.5% Normal 428447380689 0 - 5 [facility] MCH RBC Qn Auto 28.9pg Normal [id number] 27 - 33 [facility] Basophils/leuk NFr Bld Auto 0.8% Normal [id number] 0 - 1.4 [facility] Lymphocytes # Bld Auto 1.59w4036/uL Normal [id number] 0.6 - 3.7 [facility] RBC # Bld Auto 4.6M/uL Normal 993281575899 4 - 6 [facility] Neutrophils/leuk NFr Bld Auto 70.6% Normal 811250507534 39 - 72 [facility] Imm Granulocytes # Bld Auto 0.86t1046/uL Normal [id number] 0 - 0.3 [facility] Platelet # Bld Auto 511x1559/uL Normal 925917723093 150 - 420 [facility] MCV RBC Auto 90fL Normal 743029195216 80 - 100 [facility] Lymphocytes/leuk NFr Bld Auto 19.3% Normal [id number] 17 - 50 [facility] Imm Granulocytes/leuk NFr Bld Auto 0.4% Normal [id number] 0 - 1 [facility] Hgb Bld-mCnc 13.3g/dL Normal 443781646478 11.7 - 15.5 [facility] Benzodiaz Ur Ql Scn Negative Normal [id number] - [facility] BKR METHADONE METABOLITE SCREEN, URINE, NO CONF. Negative Normal - [facility] Barbiturates Ur Ql Scn Negative Normal - [facility] oxyCODONE Ur Ql Scn Negative Normal - [facility] PCP Ur Ql Scn>25 ng/mL Negative Normal - [facility] Cannabinoids Ur Ql Scn Positive Abnormal - [facility] BZE Ur Ql Scn Negative Normal - [facility] Opiates Ur Ql Scn Negative Normal - [facility] Amphetamines Ur Ql Scn Negative Normal - [facility] BKR DRUGS OF ABUSE DISCLAIMER See Comment Normal [facility] B[facility] DRUGS OF ABUSE NOTE Normal [facility] BUPRENORPHINE SCREEN Negative Normal - [facility] BKR DRUGS OF ABUSE NOTE Normal [facility] fentaNYL Ur Ql Scn Negative Normal - [facility] Troponin T SerPl HS-mCnc -1ng/L Normal [id number] [facility] ABORH RECHECK INTERPRETATION A POS Normal [facility] ANTIBODY SCREEN NEG Normal [facility] RH TYPE POS Normal [facility] BKR ABO GROUPING A Normal [facility] SPECIMEN EXPIRATION DATE AND TIME 03/10/2024 23:59 Normal [id number] [facility] Calcium SerPl-mCnc 9.2mg/dL Normal 020873500475 8.8 - 10 .2 [facility] Anion Gap3 SerPl-sCnc 13 Normal 065356978739 7 - 1 7 [facility] BUN SerPl-mCnc 6mg/dL Below low normal 8 - 2 3 [facility] HCO3 SerPl-sCnc 23mmol/L Normal 996036918257 20 - 30 [facility] Creat SerPl-mCnc 0.75mg/dL Normal 064617914550 0.4 - 1.3 [facility] Chloride SerPl-sCnc 107mmol/L Normal 284534317481 98 - 10 7 [facility] BUN/Creat SerPl 8 Normal [id number] 8 - 23 [facility] GFR/BSA.pred SerPlBld FEA-TWA-FlCWyn 60mL/min/1.73m 2 Normal [id number] - [facility] Potassium SerPl-sCnc 3.7mmol/L Normal 525424077227 3.3 - 5.3 [facility] Sodium SerPl-sCnc 143mmol/L Normal 764333273100 136 - 144 [facility] Glucose SerPl-mCnc 101mg/dL Above high normal 011119266480 70 - 100 [facility] Troponin T SerPl HS-mCnc 9ng/L Normal 259902309714 - [facility] aPTT PPP 28.3seconds Normal 928359729564 23 - 31.[address] INR PPP 0.92 Normal 099161899711 0.86 - 1.[address] Prothrombin time 10.3seconds Normal 739467098183 9.6 - 12 .3 [facility] RDW RBC Auto-Rto 14% Normal [id number] 11 - 15 [facility] PMV Bld Auto 10.5fL Normal 167468800960 8 - 12 [facility] MCH RBC Qn Auto 28.4pg Normal 645927560165 27 - 33 [facility] Neutrophils # Bld Auto 4.85m1957/uL Normal 349604210931 2 - 7.6 [facility] RBC # Bld Auto 4.72M/uL Normal 376010771686 4 - 6 [facility] MCHC RBC Auto-mCnc 31.8g/dL Normal 223918305564 31 - 36 [facility] Platelet # Bld Auto 731b3760/uL Normal 884163250832 150 - 420 [facility] WBC # Bld Auto 8.3w4910/uL Normal 995892805241 4 - 11 [facility] Hct VFr Bld Auto 42.2% Normal 205564236428 35 - 45 [facility] MCV RBC Auto 89.4fL Normal 146114121421 80 - 100 [facility] Hgb Bld-mCnc 13.4g/dL Normal 152614520717 11.7 - 15.5 [facility] ESR Bld Qn 18mm/hr Normal 554200103599 0 - 20 [facility] T Monocytes # Bld Auto 0.14d3181/uL Normal 338398769265 0 - 1 [facility] nRBC/100 WBC Bld Auto-Rto 0% Normal 406585105179 0 - 1 [facility] Eosinophil # Bld Auto 0.93q5281/uL Normal 615646035092 0 - 1 [facility] nRBC # Bld Auto 0m5411/uL Normal 378255316015 0 - 1 [facility] Neutrophils # Bld Auto 7.5i9294/uL Normal 245309408428 2 - 7.6 [facility] MCHC RBC Auto-mCnc 32.8g/dL Normal 585674575236 31 - 36 [facility] Monocytes/leuk NFr Bld Auto 8.5% Normal 236311106943 4 - 12 [facility] Basophils # Bld Auto 0.25p6212/uL Normal 083594069121 0 - 1 [facility] WBC # Bld Auto 10.1j6013/uL Normal 910920685356 4 - 11 [facility] Hct VFr Bld Auto 38.1% Normal 992535079982 35 - 45 [facility] RDW RBC Auto-Rto 13.9% Normal 858590443636 11 - 15 [facility] PMV Bld Auto 10.8fL Normal 330293366781 8 - 12 [facility] Eosinophil/leuk NFr Bld Auto 1.5% Normal 887772560657 0 - 5 [facility] MCH RBC Qn Auto 29.1pg Normal 915786148569 27 - 33 [facility] Basophils/leuk NFr Bld Auto 0.6% Normal 049099239788 0 - 1.4 [facility] Lymphocytes # Bld Auto 1.59x9013/uL Normal 339670554624 0.6 - 3.7 [facility] RBC # Bld Auto 4.3M/uL Normal 181455650897 4 - 6 [facility] Neutrophils/leuk NFr Bld Auto 69.5% Normal 106626947592 39 - 72 [facility] Imm Granulocytes # Bld Auto 0.94e4066/uL Normal 0 - 0.3 [facility] Platelet # Bld Auto 626b1930/uL Normal 150 - 420 [facility] MCV RBC Auto 88.6fL Normal 80 - 100 [facility] Lymphocytes/leuk NFr Bld Auto 19.4% Normal 17 - 50 [facility] Imm Granulocytes/leuk NFr Bld Auto 0.5% Normal 027823733132 0 - 1 [facility] Hgb Bld-mCnc 12.5g/dL Normal 11.7 - 15.5 [facility] CRP SerPl HS-mCnc 8.9mg/L Above high normal - [facility] Anion Gap3 SerPl-sCnc 14 Normal 7 - 1 7 [facility] Creat SerPl-mCnc 0.75mg/dL Normal 0.4 - 1.3 [facility] Albumin/Glob SerPl 1.3 Normal 1 - 2.2 [facility] Albumin SerPl BCG-mCnc 4g/dL Normal 3.6 - 5.1 [facility] ALT SerPl w/o P-5'-P-cCnc 29U/L Normal 10 - 35 [facility] Potassium SerPl-sCnc 4mmol/L Normal 3.3 - 5.3 [facility] Bilirub SerPl-mCnc 0.6mg/dL Normal - [facility] Calcium SerPl-mCnc 9.6mg/dL Normal 100059518793 8.8 - 10 .2 [facility] AST/ALT SerPl-cRto 0.7 Normal - [facility] BUN SerPl-mCnc 12mg/dL Normal 8 - 23 [facility] ALP SerPl-cCnc 119U/L Normal 9 - 122 [facility] HCO3 SerPl-sCnc 23mmol/L Normal 096150997240 20 - 30 [facility] Chloride SerPl-sCnc 103mmol/L Normal 104621552931 98 - 10 7 [facility] BUN/Creat SerPl 16 Normal 8 - 23 [facility] AST SerPl w P-5'-P-cCnc 20U/L Normal 561580688666 10 - 35 [facility] GFR/BSA.pred SerPlBld W[facility]-ICH-TtCEwn 60mL/min/1.73m 2 Normal 352448084582 - [facility] Globulin Plas-mCnc 3.1g/dL Normal 2 - 3.9 [facility] Prot SerPl-mCnc 7.1g/dL Normal 5.9 - 8.3 [facility] Sodium SerPl-sCnc 140mmol/L Normal 136 - 144 [facility] Glucose SerPl-mCnc 94mg/dL Normal 70 - 100 [facility] ESR Bld Qn 10mm/hr Normal [id number] 0 - 20 [facility] T Monocytes # Bld Auto 0.1a1367/uL Normal 183103207630 0 - 1 [facility] nRBC/100 WBC Bld Auto-Rto 0% Normal 0 - 1 [facility] Neutrophils # Bld Auto 3.71c1861/uL Normal 698169537743 2 - 7.6 [facility] Eosinophil # Bld Auto 0.51q6357/uL Normal 057653336708 0 - 1 [facility] nRBC # Bld Auto 0x5710/uL Normal 242540853291 0 - 1 [facility] MCHC RBC Auto-mCnc 31g/dL Normal 945989721659 31 - 36 [facility] Monocytes/leuk NFr Bld Auto 8% Normal 4 - 12 [facility] Basophils # Bld Auto 0.08i7706/uL Normal 040643233627 0 - 1 [facility] WBC # Bld Auto 6.3g1264/uL Normal 346800709062 4 - 11 [facility] Hct VFr Bld Auto 39.4% Normal 738892917080 35 - 45 [facility] RDW RBC Auto-Rto 14.5% Normal 630851514436 11 - 15 [facility] PMV Bld Auto 10.9fL Normal 600965875200 8 - 12 [facility] Eosinophil/leuk NFr Bld Auto 3.3% Normal 326517768047 0 - 5 [facility] MCH RBC Qn Auto 28.4pg Normal 914353361264 27 - 33 [facility] Basophils/leuk NFr Bld Auto 0.8% Normal 034897847513 0 - 1.4 [facility] Lymphocytes # Bld Auto 1.84g8935/uL Normal 676686727252 0.6 - 3.7 [facility] RBC # Bld Auto 4.29M/uL Normal 681823724824 4 - 6 [facility] Neutrophils/leuk NFr Bld Auto 61.8% Normal 470145349481 39 - 72 [facility] Imm Granulocytes # Bld Auto 0.86g8083/uL Normal 824051027165 0 - 0.3 [facility] Platelet # Bld Auto 300n3892/uL Normal 962229116034 150 - 420 [facility] MCV RBC Auto 91.8fL Normal 80 - 100 [facility] Lymphocytes/leuk NFr Bld Auto 25.8% Normal 17 - 50 [facility] Imm Granulocytes/leuk NFr Bld Auto 0.3% Normal 680184843710 0 - 1 [facility] Hgb Bld-mCnc 12.2g/dL Normal 160552731837 11.7 - 15.5 [facility] Anion Gap3 SerPl-sCnc 13 Normal 678879349202 7 - 1 7 [facility] Creat SerPl-mCnc 0.76mg/dL Normal [id number] 0.4 - 1.3 [facility] Albumin/Glob SerPl 1.3 Normal [id number] 1 - 2.2 [facility] Albumin SerPl BCG-mCnc 3.9g/dL Normal [id number] 3.6 - 5.1 [facility] ALT SerPl w/o P-5'-P-cCnc 16U/L Normal [id number] 10 - 35 [facility] Potassium SerPl-sCnc 4.1mmol/L Normal [id number] 3.3 - 5.3 [facility] Bilirub SerPl-mCnc 0.5mg/dL Normal [id number] - [facility] Calcium SerPl-mCnc 9.3mg/dL Normal [id number] 8.8 - 10 .2 [facility] AST/ALT SerPl-cRto 1.4 Normal [id number] - [facility] BUN SerPl-mCnc 9mg/dL Normal [id number] 8 - 23 [facility] ALP SerPl-cCnc 102U/L Normal 9 - 122 [facility] HCO3 SerPl-sCnc 23mmol/L Normal [id number] 20 - 30 [facility] Chloride SerPl-sCnc 105mmol/L Normal [id number] 98 - 10 7 [facility] BUN/Creat SerPl 11.8 Normal [id number] 8 - 23 [facility] AST SerPl w P-5'-P-cCnc 22U/L Normal [id number] 10 - 35 [facility] GFR/BSA.pred SerPlBld FQJ-LOF-TjRMci 60mL/min/1.73m 2 Normal [id number] - [facility] Globulin Plas-mCnc 3g/dL Normal [id number] 2 - 3.9 [facility] Prot SerPl-mCnc 6.9g/dL Normal 5.9 - 8.3 [facility] Sodium SerPl-sCnc 141mmol/L Normal [id number] 136 - 144 [facility] Glucose SerPl-mCnc 137mg/dL Above high normal [id number] 70 - 100 [facility] CRP SerPl HS-mCnc 4.4mg/L Above high normal [id number] - [facility] History of Medication Use Medication Directions Dispensed Refills Start Date End Date Stat predniSONE (DELTASONE) 20 mg tablet Take 2 tablets (40 mg total) by mouth daily. 11/18/2023 active levETIRAcetam (KEPPRA) 750 mg immediate release tablet Take 1 tablet (750 mg total) by mouth 2 (two) times daily. 07/21/2024 active budesonide-formotero L (SYMBICORT) 160-4.5 mcg/actuation HFA aerosol inhaler Inhale 2 puffs into the lungs 2 (two) times daily. 08/11/2024 08/31/2024 active gabapentin (NEURONTIN) 400 mg capsule Take 1 capsule (400 mg total) by mouth. 10/01/2023 active levothyroxine (SYNTHROID, LEVOTHROID) 50 MCG tablet Take 1 tablet (50 mcg total) by mouth daily. active budesonide (PULMICORT) 0.5 mg/2 mL nebulizer solution inhale contents of 1 vial ( 2 milliliters ) in nebulizer twice a ... (REFER TO PRESCRIPTION NOTES). 12/09/2023 aborted BiPAP / CPAP With tubing and mask Autotitrate 5-20 mm Hg 12/17/2022 active amLODIPine-benazepri l (LOTREL) 5-10 mg per capsule Take by mouth. 05/04/2023 active montelukast (SINGULAIR) 10 mg tablet Take 1 tablet (10 mg total) by mouth nightly. 09/25/2023 active cetirizine (ZYRTEC) 10 mg tablet Take 1 tablet (10 mg total) by mouth daily. active levothyroxine (SYNTHROID, LEVOTHROID) 200 MCG tablet Take 1 tablet (200 mcg total) by mouth daily. active pentoxifylline (TRENTAL) 400 mg extended release tablet Take 1 tablet (400 mg total) by mouth. 12/02/2022 active zolpidem (AMBIEN) 10 mg tablet Take 1 tablet (10 mg total) by mouth nightly as needed for sleep. active Problems Problem Status Onset Date Problem Type Date of Resolution Source Obstructive sleep apnea of adult active 2024-04-17 ProblemAct [facility] Cognitive deficits active 2023-10-19 ProblemAct [facility] Raynaud's disease active 2012-08-26 ProblemAct [facility] Interstitial lung disease (HC Code) (HC CODE) active 2012-08-13 ProblemAct [facility] HLD (hyperlipidemia) active 2022-02-08 ProblemAct [facility] GERD (gastroesophageal reflux disease) active 2023-10-19 ProblemAct [facility] Hypothyroidism active 2012-02-[address] Mild persistent asthma with acute exacerbation active EncounterDiagnosisAct [facility] Does not have primary care provider active 2024-04-17 ProblemAct [facility] Subclavian steal syndrome of right subclavian artery active 2023-10-19 ProblemAct [facility] Aneurysm of middle cerebral artery active 2023-10-19 ProblemAct [facility] Carotid atherosclerosis, bilateral active 2023-10-19 ProblemAct [facility] Postinflammatory pulmonary fibrosis (HC Code) (HC CODE) active 2016-04-12 ProblemAct [facility] Impaired vision in both eyes active 2023-10-19 ProblemAct [facility] NSVT (nonsustained ventricular tachycardia) active 2024-04-17 ProblemAct [facility] 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, not intractable, without status epilepticus active 2024-04-17 ProblemAct [facility] Nonalcoholic fatty liver disease active 2019-03-03 ProblemAct [facility] Left atrial enlargement active 2023-10-19 ProblemAct [facility] Primary hypertension active 2012-02-13 ProblemAct [facility] Occlusion of right middle cerebral artery active 2024-04-17 ProblemAct [facility] Chronic ischemic right MCA stroke active 2022-02-12 ProblemAct [facility] Sensory polyneuropathy active 2013-02-23 ProblemAct [facility] Vitamin B 12 deficiency active 2023-10-19 ProblemAct [facility] Migraine without aura active 2013-04-09 ProblemAct [facility] Inflammatory arthritis active 2012-06-19 ProblemAct [facility] At risk for sleep apnea active 2023-10-19 ProblemAct [facility] Low back pain active 2012-09-02 ProblemAct [facility] Other insomnia active 2021-03-[address] Stage 2 chronic kidney disease active 2019-02-17 ProblemAct [facility] Internal carotid artery stent present active 2023-10-19 ProblemAct [facility] Carotid stenosis, symptomatic, with infarction active 2022-02-12 ProblemAct [facility] Esophageal dysmotility active 2018-12-15 ProblemAct [facility] Immunizations Vaccine Date Source Lot Number Status Pneumococcal polysaccharide PPSV23 04/16/2018 [facility] R [id number] completed Pneumococcal conjugate PCV 13 06/09/2015 [facility] completed Influenza, injectable, quad with preservative [facility]16[id number] Influenza, trivalent, inject able, contains preservative 04/23/2013 [facility] completed Influenza, unspecified formulation 04/29/2014 [facility] completed [employer] (Shingrix) 10/04/2021 [facility] [id number] completed Influenza, trivalent, inject able, contains preservative 04/29/2014 [facility] completed Tdap 11/04/2020 [facility] [id number] completed Tdap 12/07/2018 [facility] [id number] completed Influenza, trivalent, inject able, contains preservative 04/15/2012 [facility] completed Influenza, trivalent, inject able, contains preservative 06/09/2015 [facility] completed ZOSTER RECOMBINANT (Shingrix) 03/28/2022 [facility] [id number] completed Influenza, injectable, quadr ivalent, preservative free 09/03/2021 [facility] [id number] completed Influenza, injectable, quad with preservative 04/16/2017 [facility] [id number] Influenza, unspecified formulation 04/29/2020 [facility] [id number] completed Influenza, injectable, quad with preservative 04/01/2019 P [facility] [id number] completed
--- OUTSIDE RECORDS SUMMARY | 2024-10-07 18:14 | XMS_ITS | Encounter Summary ---
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) Social History Tobacco Use Types Packs/Day Years [...] EDT Follow Up Pulmonary Critical [place] 136 [facility] 302 [place], [place] [phone] Ramon Nixon MD [address] [place] [phone] 04/28/2025 1:45 PM EDT Follow Up Stroke 800 [place] [address] Kristine Kelly MD PhD 800 [place] [phone] 05/04/2025 1:00 PM EDT Follow Up Cardiovascular Medicine at 175 [facility] 175 [place] [address] Mike Hilario MD [address] [place] [address] 2 [place] [phone] 07/20/2025 11:40 AM EST Follow Up Epilepsy & Seizures at 800 [facility] 800 [place] [address] Virgie Mast MD PhD 800 [facility] [place] [phone] documented as of this encounter Results * Sedimentation rate (ESR) (07/23/2024 1:13 PM EST) Sedimentation Rate (ESR) 12 0 - 20 mm/hr 07/23/2024 2:55 PM EST [facility] DEPARTMENT OF LABORATORY MEDICINE Blood Venipuncture / Unknown 07/23/2024 1:13 PM EST 07/23/2024 2:24 PM EST us Provider Not In System LAB BLOOD ORDERABLES Evelin smith Result [facility] DEPARTMENT OF LABORATORY MEDICINE [address] [place] [address] documented in this encounter Visit Diagnoses Diagnosis 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
--- OUTSIDE RECORDS SUMMARY | 2024-10-07 18:14 | XMS_ITS | Encounter Summary ---
Author Organization 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) (Primary [...] EDT Follow Up [place]monary Critical [place] 136 [facility] 302 [place], [place] [address] Ramon Nixon MD 136 [facility] 302 [place] [phone] 04/28/2025 1:45 PM EDT Follow Up [facility] Stroke 800 [place], [place] [address] Kristine Kelly MD PhD 800 [place] [address] 05/04/2025 1:00 PM EDT Follow Up Cardiovascular Medicine at 175 [facility] 175 [facility], [place] [address] Mike Hilario MD 175 [facility] Fl 2 [place] [address] 07/20/2025 11:40 AM EST Follow Up Epilepsy & Seizures at 800 [facility] 800 [facility] Lower Level [place], [place] [phone] Virgie Mast MD PhD 800 [place] [address] documented as of this encounter Results * Sedimentation rate (ESR) (05/20/2024 12:53 PM EDT) Pathologist [facility] Sedimentation Rate (ESR) 4 0 - 20 mm/hr 05/20/2024 1:59 PM EDT [facility] DEPARTMENT OF LABORATORY MEDICINE Blood Venipuncture / Unknown 05/20/2024 12:53 PM EDT 05/20/2024 1:31 PM EDT us Provider Not In System LAB BLOOD ORDERABLES Evelin l Result [facility] DEPARTMENT OF LABORATORY MEDICINE [address] [place] [address] * (ABNORMAL) C-reactive protein (CRP) (04/15/2024 12:20 PM EDT) CRP, High Sensitivity 3.1(H) See comment mg/L 04/15/2024 3:42 PM EDT [facility] DEPARTMENT OF LABORATORY MEDICINE Comment: hs-CRP Risk According to AHA/CDC Guidelines (mg/L): <1.0 Lower relative cardiovascular risk. 1.0-3.0 Average relative cardiovascular risk. 3.1-10.0 Higher relative cardiovascular risk. Consider retesting in 1 to 2 weeks to exclude a benign??transient elevation in the baseline CRP value secondary to infection or inflammation. >10.0 Persistent elevation, upon retesting, may be associated with infection and inflammation. Blood Venipuncture / Unknown 04/15/2024 12:20 PM EDT 04/15/2024 3:13 PM EDT us Provider Not In System LAB BLOOD ORDERABLES Evelin l Result Performing Organization Address [facility] Co de Phone Number [facility] DEPARTMENT OF LABORATORY MEDICINE [address] [place] [address] * (ABNORMAL) Sedimentation rate (ESR) (04/15/2024 12:20 PM EDT) Sedimentation Rate (ESR) 24(H) 0 - 20 mm/hr 04/15/2024 3:41 PM EDT [facility] DEPARTMENT OF LABORATORY MEDICINE Blood Venipuncture / Unknown 04/15/2024 12:20 PM EDT 04/15/2024 2:54 PM EDT us Provider Not In System LAB BLOOD ORDERABLES Evelin l Result Performing Organization Address [facility] Co de Phone Number [facility] DEPARTMENT OF LABORATORY MEDICINE [address] [place] [address] * (ABNORMAL) C-reactive protein (CRP) (03/17/2024 10:36 AM EDT) CRP, High Sensitivity 6.3(H) See comment mg/L 03/17/2024 11:47 AM EDT [facility] DEPARTMENT OF LABORATORY MEDICINE Comment: hs-CRP Risk According to AHA/CDC Guidelines (mg/L): <1.0 Lower relative cardiovascular risk. 1.0-3.0 Average relative cardiovascular risk. 3.1-10.0 Higher relative cardiovascular risk. Consider retesting in 1 to 2 weeks to exclude a benign??transient elevation in the baseline CRP value secondary to infection or inflammation. >10.0 Persistent elevation, upon retesting, may be associated with infection and inflammation. Blood Venipuncture / Unknown 03/17/2024 10:36 AM EDT 03/17/2024 11:16 AM EDT Provider Not In System LAB BLOOD ORDERABLES Evelin l Result Performing Organization Address [facility]/ZIP Co de Phone Number [facility]MENT OF LABORATORY MEDICINE [address] [place] [address] * (ABNORMAL) Sedimentation rate (ESR) (03/17/2024 10:36 AM EDT) Sedimentation Rate (ESR) 23(H) 0 - 20 mm/hr 03/17/2024 11:46 AM EDT [facility] DE[facility] OF LABORATORY MEDICINE Blood Venipuncture / Unknown 03/17/2024 10:36 AM EDT 03/17/2024 11:15 AM EDT Provider Not In System LAB BLOOD ORDERABLES Evelin l Result Performing Organization Address [facility] de Phone Number [facility] OF LABORATORY MEDICINE [address] [place] [address] * (ABNORMAL) C-reactive protein (CRP) (02/20/2024 3:41 PM EDT) CRP, High Sensitivity 8.9(H) See comment mg/L 02/20/2024 4:36 PM EDT [facility] OF LABORATORY MEDICINE Comment: hs-CRP Risk According to AHA/CDC Guidelines (mg/L): <1.0 Lower relative cardiovascular risk. 1.0-3.0 Average relative cardiovascular risk. 3.1-10.0 Higher relative cardiovascular risk. Consider retesting in 1 to 2 weeks to exclude a benign??transient elevation in the baseline CRP value secondary to infection or inflammation. >10.0 Persistent elevation, upon retesting, may be associated with infection and inflammation. Blood Venipuncture / Unknown 02/20/2024 3:41 PM EDT 02/20/2024 4:07 PM EDT us Provider Not In System LAB BLOOD ORDERABLES Evelin l Result Performing Organization Address City/[facility] Co de Phone Number [facility] DEPARTMENT OF LABORATORY MEDICINE [address] [place] [address] * Sedimentation rate (ESR) (02/20/2024 3:41 PM EDT) Sedimentation Rate (ESR) 18 0 - 20 mm/hr 02/20/2024 7:04 PM EDT [facility] DEPARTMENT OF LABORATORY MEDICINE Blood Venipuncture / Unknown 02/20/2024 3:41 PM EDT 02/20/2024 4:04 PM EDT us Provider Not In System LAB BLOOD ORDERABLES Evelin l Result Performing Organization Address [facility] de Phone Number [facility] LABORATORY MEDICINE [address] [place] [address] * (ABNORMAL) C-reactive protein (CRP) (12/09/2023 1:52 PM EDT) CRP, High Sensitivity 4.4(H) See comment mg/L 12/09/2023 4:44 PM EDT [facility]PART[facility] OF LABORATORY MEDICINE Comment: hs-CRP Risk According to AHA/CDC Guidelines (mg/L): <1.0 Lower relative cardiovascular risk. 1.0-3.0 Average relative cardiovascular risk. 3.1-10.0 Higher relative cardiovascular risk. Consider retesting in 1 to 2 weeks to exclude a benign??transient elevation in the baseline CRP value secondary to infection or inflammation. >10.0 Persistent elevation, upon retesting, may be associated with infection and inflammation. Blood Venipuncture / Unknown 12/09/2023 1:52 PM EDT 12/09/2023 4:10 PM EDT us Provider Not In System LAB BLOOD ORDERABLES Evelin l Result Performing Organization Address [facility] Co de Phone Number [facility] LABORATORY MEDICINE [address] [place] [address] * Sedimentation rate (ESR) (12/09/2023 1:52 PM EDT) Sedimentation Rate (ESR) 10 0 - 20 mm/hr 12/09/2023 5:08 PM EDT [facility] DE[facility] OF LABORATORY MEDICINE Blood Venipuncture / Unknown 12/09/2023 1:52 PM EDT 12/09/2023 4:20 PM EDT us Provider Not In System LAB BLOOD ORDERABLES Evelin l Result [facility] DEPARTMENT OF LABORATORY MEDICINE [address] [place] [address], [facility] [phone] documented in this encounter Visit Diagnoses Diagnosis 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
--- OUTSIDE RECORDS SUMMARY | 2024-10-07 18:14 | XMS_ITS | Encounter Summary ---
Author Organization [facility] Address [address] [address] Phone Care Team Providers Care Outcomes Analyst Name Role Phone Sal Jose MD Primary Care Provider [phone] Reason for Visit * Reason Onset Date Comments Appointment 07/20/2024 Missed study Encounter Details Date Type Department Care Team ([facility] st Contact Info) Description 07/20/2024 Telephone [facility] - [address] [address] Nain Cat MD [address] [place] [phone] Appointment (Missed study ) Social History Tobacco Use Types Packs/Day [...] * Telephone Encounter - Samantha Wiggins - 07/20/2024 1:33 PM EST Attempted to call to reschedule missed sleep study appointment. documented in this encounter Plan of Treatment Upcoming Encounters Date Type Department Care Team (Late st Contact Info) Description 03/08/2025 12:00 PM EDT Follow Up Pulmonary Critical [place] 136 [facility] [address] [place] [address] Ramon Nixon MD 136 [facility] [address] 302 [place] [address] 04/28/2025 1:45 PM EDT Follow Up Stroke 800 [place] [address] Kristine Kelly MD PhD 800 [place] [phone] 05/04/2025 1:00 PM EDT Follow Up Cardiovascular Medicine at 175 [facility] 175 [place] [address] Mike Hilario MD 175 [facility] 2 [place] [address] 07/20/2025 11:40 AM EST Follow Up Epilepsy & Seizures at 800 [facility] 800 [place] [address] Virgie Mast MD PhD 800 [place] [address] documented as of this encounter Visit Diagnoses Not on filedocumented in this encounter Additional Health Concerns Assessment Noted Time PHQ-9 Depression Total Score: 0 04/07/20 24 2:31 PM EDT documented as of this encounter Care Teams Outcomes Analyst Relationship Specialty Start Date End Date Sal Jose MD [facility] [address] [address] PCP - General Family Medicine 10/16/23 documented as of this encounter
--- OUTSIDE RECORDS SUMMARY | 2024-10-07 18:14 | XMS_ITS | Encounter Summary ---
Author Organization [facility] Address Unknown Care Team Providers Care Citrix Architect Name Role Phone Sal Jose MD Primary Care Provider Reason for Referral * General (Routine) - New Request Specialty Diagnoses / Procedures Referred By Contac t Referred To Contact Pulmonary Disease Procedures Pulmonary Function Test ([facility]) Ramon Nixon MD [address] [place] [address] 302 [place] [address] Phone: tel: fax: Referral ID Status Reason Start Date Expiration Date V isits Requested Visits Authorized [id number] New Request 08/31/2024 08/31/2025 1 1 Encounter Details Date Type Department Care Team (Late st Contact Info) Description 08/31/2024 Scanned Document Pulmonary Critical [place] 136 [facility] 302 [place], [place] [phone] Ramon Nixon MD [address] [place] [address] 302 [place] [address] Social History Tobacco Use Types Packs/Day Years [...] EDT Follow Up Pulmonary Critical [place] 136 [facility] [address] [place] [address] Ramon Nixon MD 136 [facility] 302 [place] [address] 04/28/2025 1:45 PM EDT Follow Up Stroke 800 [place] [address] Kristine Kelly MD PhD 800 [place] [address] 05/04/2025 1:00 PM EDT Follow Up Cardiovascular Medicine at 175 [facility] 175 [place] [address] Mike Hilario MD 175 [facility] 2 [place] [address] 07/20/2025 11:40 AM EST Follow Up Epilepsy & Seizures at 800 [facility] 800 [place] [address] Virgie Mast MD PhD 800 [place] [address] documented as of this encounter Procedures Procedure Name Priority Date/Time Associated Diagnosis Comments PULMONARY FUNCTION TEST ([facility] ONLY) Routine 08/31/2024 4:13 PM EST documented in this encounter Results * Pulmonary Function Test ([facility]) (08/31/2024 4:13 PM EST) Ramon Nixon MD PFT ORDERABLES Final Result documented in this encounter Visit Diagnoses Not on filedocumented in this encounter Additional Health Concerns Assessment Noted Time PHQ-9 Depression Total Score: 0 04/07/20 2:31 PM EDT documented as of this encounter Care Teams Citrix Architect Relationship Specialty Start Date End Date Sal Jose MD 1033 [facility] [address] [place] [phone] PCP - General Family Medicine 10/16/23 documented as of this encounter
--- OUTSIDE RECORDS SUMMARY | 2024-10-07 18:14 | XMS_ITS | Encounter Summary ---
Author Organization [facility] and [facility] Address [address] [place] [phone] Care Team Providers Care Elevator Technician Name Role Phone Sal Jose MD Primary Care Provider [phone] Encounter Details Date Type Department Care Team (Late Contact Info) Description 08/31/2024 Transcribed Orders [facility] Laboratory Specimens 55 [place] [address] System, Provider Not In CRST syndrome (HC [...] EDT Follow Up Pulmonary Critical [place] 136 [facility] 302 [place], [place] [phone] Ramon Nixon MD [address] [place] [phone] 04/28/2025 1:45 PM EDT Follow Up Stroke 800 [facility] [address] Kristine Kelly MD PhD 800 [facility] [address] 05/04/2025 1:00 PM EDT Follow Up Cardiovascular Medicine at 175 [facility] 175 [place] [address] Mike Hilario MD [address] [place] [address] 2 [place] [address] 07/20/2025 11:40 AM EST Follow Up Epilepsy & Seizures at 800 [facility] 800 [place] [address] Virgie Mast MD PhD 800 [place] [address] Scheduled Orders Name Type Priority Associated Diagnoses Orde r Schedule C-reactive protein (CRP) Lab Routine CRST syndrome (HC Code) (HC CODE) (HC Code) Expected: 08/31/2024, Expires: 10/29/2025 CBC and differential Lab - Test Panel Order Routine CRST syndrome (HC Code) (HC CODE) (HC Code) Expected: 08/31/2024, Expires: 10/29/2025 Comprehensive metabolic panel Lab - Test Panel Order Routine CRST syndrome (HC Code) (HC CODE) (HC Code) Expected: 08/31/2024, Expires: 10/29/2025 Sedimentation rate (ESR) Lab Routine CRST syndrome (HC Code) (HC CODE) (HC Code) Expected: 08/31/2024, Expires: 10/29/2025 documented as of this encounter Visit Diagnoses Diagnosis 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
--- OUTSIDE RECORDS SUMMARY | 2024-10-07 18:15 | XMS_ITS | Patient Health Record ---
Author Organization [facility] Address [address] [place] [address] [address] [place], [place] [id number] Care Team Providers Care Hot Tamale Worker Name Role Phone Nain Stroud [phone] ALLERGIES Allergen (clinical drug ingredient) Drug/Non Drug Allergy documented on EMR Reaction Allergy Type Onset Date Status morphine Morphine Sulfate Unknown Drug Allergy Active Penicillin Unknown Drug Allergy Active REASON FOR REFERRAL No Information MEDICATIONS Medication SIG (Take, Route, Frequency, Duration) Notes Start Date End Date Status Meloxicam Active Levothyroxine Sodium Active Mycophenolate Sodium Active Fluticasone Furoate-Vilanterol Active dilTIAZem HCl Active Ipratropium-Albuterol Active Diclofenac Sodium Ac tive Pentoxifylline ER Ac tive Sulfamethoxazole-TMP DS Active Gabapentin Active traMADol HCl Active Zolpidem Tartrate Ac tive PROBLEMS Problem Type ICD Code Onset Dates Problem Status W/U Status Risk SNOMED Code Notes Problem Dyskinesia of esophagus (K22.4) Active confirmed Dyskinesia of esophagus (97924141) Problem 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 Progressiv e systemic sclerosis (179912046) Problem Dysphagia, pharyngoesophageal phase (R13.14) Active confirmed Pharyngeal dysphagia (8691130236714 5) Problem Dysphonia (R49.0) Active confirmed Dysp honia (76618953) Problem Other diseases of larynx (J38.7) Active confirmed Disease of larynx (07982287) PLAN OF TREATMENT No Information Insurance Providers Payer Name Payer Address Payer Phone Subscriber Number Group Number Insured Name Patient Relationship to Insured Coverage Start Date Coverage [place] [address] [place] [address] [id number] 5 Medicare Bernadette Zapata Self - patient is the insured 9
--- OUTSIDE RECORDS SUMMARY | 2024-10-07 18:15 | XMS_ITS | Encounter Summary ---
Author Organization [facility] Address Unknown Care Team Providers Care Night Custodian Name Role Phone Sal Jose MD Primary Care Provider Encounter Details Date Type Department Care Team (Late st Contact Info) Description 08/13/2023 Scanned Document Pulmonary Critical [place] [address] [address] External, Provider Social History Tobacco Use Types [...] 12:00 PM EDT Follow Up Pulmonary Critical [place] 136 [facility] 302 [place] [address] Ramon Nixon MD [address] [place] [facility] 302 [place] [address] 04/28/2025 1:45 PM EDT Follow Up Stroke 800 [place] [address] Kristine Kelly MD PhD 800 [place] [phone] 05/04/2025 1:00 PM EDT Follow Up Cardiovascular Medicine at 175 [facility] 175 [place] [address] Mike Hilario MD 175 [facility] Fl 2 [place] [phone] 07/20/2025 11:40 AM EST Follow Up Epilepsy & Seizures at 800 [facility] 800 [facility] Lower Level [place], [place] [address] Virgie Mast MD PhD 800 [place] [phone] documented as of this encounter Visit Diagnoses Not on filedocumented in this encounter Care Teams Night Custodian Relationship Specialty Start Date End Date Sal Jose MD 1033 [facility] [address] [place] [phone] PCP - General Family Medicine 10/16/23 documented as of this encounter
--- OUTSIDE RECORDS SUMMARY | 2024-10-07 18:15 | XMS_ITS | Encounter Summary ---
Author Organization [facility] Address Unknown Care Team Providers Care Quality Assurance Supervisor Final Name Role Phone Sal Jose MD Primary Care Provider [phone] Encounter Details Date Type Department Care Team (Late st Contact Info) Description 11/19/2022 Scanned Document Pulmonary Critical [place] [address] [address] External, Provider Social History Tobacco Use Types [...] 12:00 PM EDT Follow Up Pulmonary Critical [place] 136 [facility] 302 [place] [address] Ramon Nixon MD 136 [facility] 302 [place] [address] 04/28/2025 1:45 PM EDT Follow Up Stroke 800 [place] [address] Kristine Kelly MD PhD 800 [place] [phone] 05/04/2025 1:00 PM EDT Follow Up Cardiovascular Medicine at 175 [facility] 175 [place] [address] Mike Hilario MD 175 [facility] Fl 2 [place] [phone] 07/20/2025 11:40 AM EST Follow Up Epilepsy & Seizures at 800 [facility] 800 [facility] Lower [place], [place] [address] Virgie Mast MD PhD 800 [place] [phone] documented as of this encounter Visit Diagnoses Not on filedocumented in this encounter Care Teams Quality Assurance Supervisor Final Relationship Specialty Start Date End Date Sal Jose MD 1033 [facility] [address] [place] [phone] PCP - General Family Medicine 10/16/23 documented as of this encounter
--- OUTSIDE RECORDS SUMMARY | 2024-10-07 18:15 | XMS_ITS | Encounter Summary ---
Author Organization [facility] Address Unknown Care Team Providers Care Echo Vascular Tech Name Role Phone Sal Jose MD Primary Care Provider [phone] Encounter Details Date Type Department Care Team (Late st Contact Info) Description 11/27/2021 Scanned Document Pulmonary Critical [place] [address] [address] External, Provider Social History Tobacco Use Types [...] 12:00 PM EDT Follow Up Pulmonary Critical [place] 136 [facility] 302 [place] [address] Ramon Nixon MD 136 [facility] 302 [place] [address] 04/28/2025 1:45 PM EDT Follow Up Stroke 800 [place] [address] Kristine Kelly MD PhD 800 [place] [phone] 05/04/2025 1:00 PM EDT Follow Up Cardiovascular Medicine at 175 [facility] 175 [place] [address] Mike Hilario MD 175 [facility] [address] 2 [place] [phone] 07/20/2025 11:40 AM EST Follow Up Epilepsy & Seizures at 800 [facility] 800 [facility] [place], [place] [address] Virgie Mast MD PhD 800 [place] [phone] documented as of this encounter Visit Diagnoses Not on filedocumented in this encounter Care Teams Echo Vascular Tech Relationship Specialty Start Date End Date Sal Jose MD 1033 [facility] [address] [place] [phone] PCP - General Family Medicine 10/16/23 documented as of this encounter
--- OUTSIDE RECORDS SUMMARY | 2024-10-07 18:15 | XMS_ITS | Encounter Summary ---
Author Organization [facility] Address Unknown Care Team Providers Care Documentation Designer Name Role Phone Sal Jose MD Primary Care Provider Encounter Details Date Type Department Care Team (Late st Contact Info) Description 08/13/2023 Scanned Document Pulmonary Critical [place] [address] [address] External, Provider Social History Tobacco Use Types [...] 12:00 PM EDT Follow Up Pulmonary Critical [place] 136 [facility] 302 [place] [address] Ramon Nixon MD 136 [facility] 302 [place] [address] 04/28/2025 1:45 PM EDT Follow Up Stroke 800 [place] [address] Kristine Kelly MD PhD 800 [place] [phone] 05/04/2025 1:00 PM EDT Follow Up Cardiovascular Medicine at 175 [facility] 175 [place] [address] Mike Hilario MD 175 [facility] Fl 2 [place] [phone] 07/20/2025 11:40 AM EST Follow Up Epilepsy & Seizures at 800 [facility] 800 [facility] Lower [place], [place] [address] Virgie Mast MD PhD 800 [place] [phone] documented as of this encounter Visit Diagnoses Not on filedocumented in this encounter Care Teams Documentation Designer Relationship Specialty Start Date End Date Sal Jose MD 1033 [facility] [address] [place] [phone] PCP - General Family Medicine 10/16/23 documented as of this encounter
--- OUTSIDE RECORDS SUMMARY | 2024-10-07 18:15 | XMS_ITS | Encounter Summary ---
Author Organization [facility] Address Unknown Care Team Providers Care Rn Building Name Role Phone Sal Jose MD Primary Care Provider [phone] Encounter Details Date Type Department Care Team (Late st Contact Info) Description 11/27/2021 Scanned Document Pulmonary Critical [place] 136 [facility] 302 [place] [address] Gaviota Rivera, OT Social History Tobacco Use Types Packs/Day Years [...] 12:00 PM EDT Follow Up Pulmonary Critical [place] 136 [facility] 302 [place] [address] Ramon Nixon MD 136 [facility] 302 [place] [address] 04/28/2025 1:45 PM EDT Follow Up Stroke 800 [place] [address] Kristine Kelly MD PhD 800 [place] [address] 05/04/2025 1:00 PM EDT Follow Up Cardiovascular Medicine at 175 [facility] 175 [facility], [place] [address] Mike Hilario MD 175 [facility] [address] 2 [place] [phone] 07/20/2025 11:40 AM EST Follow Up Epilepsy & Seizures at 800 [facility] 800 [facility] Lower [place], [place] [address] Virgie Mast MD PhD 800 [place] [phone] documented as of this encounter Visit Diagnoses Not on filedocumented in this encounter Care Teams Rn Building Relationship Specialty Start Date End Date Sal Jose MD [address] [phone] PCP - General Family Medicine 10/16/23 documented as of this encounter
--- OUTSIDE RECORDS SUMMARY | 2024-10-07 18:15 | XMS_ITS | Encounter Summary ---
Author Organization [facility] Address 20 [place] [address] Care Team Providers Care Lumber Driver Name Role Phone Sal Jose MD Primary Care Provider Encounter Details Date Type Department Care Team (Late Contact Info) Description 08/09/2014 Abstract [facility] at 175 [facility] 175 [place] [address] Emerita Beth MD 35 [place] [phone] Social History Tobacco Use Types Packs/Day Years [...] EDT Follow Up Pulmonary Critical [place] 136 [facility] 302 [place], [place] [address] Ramon Nixon MD 136 [facility] 302 [place] [phone] 04/28/2025 1:45 PM EDT Follow Up [facility] Stroke 800 [place] [address] Kristine Kelly MD PhD 800 [place] [phone] 05/04/2025 1:00 PM EDT Follow Up Cardiovascular Medicine at 175 [facility] 175 [facility], [place] [address] Mike Hilario MD 175 [facility] 2 [place] [phone] 07/20/2025 11:40 AM EST Follow Up Epilepsy & Seizures at 800 [facility] 800 [facility] Lower [place], [place] [address] Virgie Mast MD PhD 800 [place] [phone] documented as of this encounter Visit Diagnoses Not on filedocumented in this encounter Care Teams Lumber Driver Relationship Specialty Start Date End Date Sal Jose MD [address] [phone] PCP - General Family Medicine 10/16/23 documented as of this encounter
--- OUTSIDE RECORDS SUMMARY | 2024-10-07 18:15 | XMS_ITS | Encounter Summary ---
Author Organization [facility] Address Unknown Care Team Providers Care Repairer Evaporator Name Role Phone Sal Jose MD Primary Care Provider [phone] Encounter Details Date Type Department Care Team (Late st Contact Info) Description 11/19/2022 Scanned Document Pulmonary Critical [place] [address] [address] External, Provider Social History Tobacco Use Types [...] 12:00 PM EDT Follow Up Pulmonary Critical [place] 136 [facility] 302 [place] [address] Ramon Nixon MD 136 [facility] 302 [place] [address] 04/28/2025 1:45 PM EDT Follow Up Stroke 800 [place] [address] Kristine Kelly MD PhD 800 [place] [phone] 05/04/2025 1:00 PM EDT Follow Up Cardiovascular Medicine at 175 [facility] 175 [place] [address] Mike Hilario MD 175 [facility] [address] 2 [place] [phone] 07/20/2025 11:40 AM EST Follow Up Epilepsy & Seizures at 800 [facility] 800 [facility] Lower [place], [place] [address] Virgie Mast MD PhD 800 [place] [phone] documented as of this encounter Visit Diagnoses Not on filedocumented in this encounter Care Teams Repairer Evaporator Relationship Specialty Start Date End Date Sal Jose MD 1033 [facility] [address] [place] [phone] PCP - General Family Medicine 10/16/23 documented as of this encounter
--- OUTSIDE RECORDS SUMMARY | 2024-10-07 18:15 | XMS_ITS | Clinical Summary ---
Author Organization [employer] Address [address] [place] [address] 7[address] [place] [address] Care Team Providers Care Scale Assembly Set Up Worker Name Role Phone Cordell Saba Unavailable Unavailable Allergies Active Allergy Reactions Criticality Noted Date Comments Morphine Hives,Other,Swelling ,Unk nown High 07/15/2016 Other Reaction(s): Other (See Comments) confusion Other reaction(s): Confusion confusion Penicillins Hives,Other,Rash,Nataly rtne ss of breath,Swelling High 12/17/2010 Throat and tongue swelling Other reaction(s): Throat Swelling, Tongue swelling Throat and tongue swelling Pregabalin Anxiety,Unknown High 11/25/2016 Cannot think straight while taking it. Procaine Nausea Only Low 10/19/2023 Medications chlorthalidone (Hygroton) 25 MG tablet Take 25 mg by mouth Once per day. 02/29/20 22 Active gabapentin (Neurontin) 400 MG capsule Take 400 mg by mouth 3 times daily. Active mycophenolate (Cellcept) 250 MG capsule TAKE 5 CAPSULES BY MOUTH TWICE A DAY Active levothyroxine (Synthroid, Levoxyl) 50 MCG tablet Take 50 mcg by mouth Once per day. 06/22/20 23 Active levothyroxine (Synthroid, Levoxyl) 200 MCG tablet Take 200 mcg by mouth Once per day. 02/29/20 23 Active cyanocobalamin (Vitamin B-12) 1000 MCG/ML injection INJECT 1 ML INTRAMUSCULARLY ONCE WEEKLY FOR 3 WEEKS, THEN ONCE MONTHLY 05/29/20 24 Active zolpidem (Ambien) 10 MG tablet TAKE 1 TABLET BY MOUTH AT BEDTIME MAX DAILY DOSE: 1 01/18/20 22 Active traMADol (Ultram) 50 MG tablet Take 50 mg by mouth if needed in the morning and at bedtime. Active amLODIPine-rancho azepril (Lotrel) 5-10 MG capsule Take 1 capsule by mouth Once per day. Activ e atorvastatin (Lipitor) 80 MG tablet Take 80 mg by mouth Once per day. Active clopidogrel (Plavix) 75 MG tablet Take 75 mg by mouth Once per day. 07/12/20 24 Active montelukast (Singulair) 10 MG tablet Take 10 mg by mouth at bedtime. Active budesonide (Pulmicort) 0.5 MG/2ML nebulizer solution PLEASE SEE ATTACHED FOR DETAILED DIRECTIONS Active albuterol (2.5 MG/3ML) 0.083% nebulizer solution INHALE CONTENTS OF 1 VIAL EVERY 4 HOURS NEEDED Active lidocaine (Xylocaine) 5 % ointment Apply 1 Application. topically Once per day. 03/03/20 22 Active albuterol 108 (90 Base) MCG/ACT inhaler Inhale 2 puffs every 4 (four) hours if needed for shortness of breath. Active Diclofenac Sodium 1 % gel Apply topically. 09/08/19 21 Active levETIRAcetam (Keppra) 750 MG tablet Take 750 mg by mouth 2 times daily. 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 01/31/2022 Rheumatoid arthritis involving multiple sites Stage 2 chronic kidney disease 02/17/2019 CREST variant of scleroderma 12/15/2018 Postinflammatory pulmonary fibrosis 04/12/2016 Migraine without aura 04/09/2013 Pure hypercholesterolemia 04/09/2013 Raynaud's disease 08/26/2012 Interstitial lung disease 08/13/2012 Inflammatory arthritis 06/19/2012 Pulmonary embolism 06/05/2012 Overview (07/29/2024): 1990- in [place] Primary hypertension 02/13/2012 Hypothyroidism 02/04/2012 Overview (07/29/2024): 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 Encounters Date Type Department Care Team Description 08/26/2024 9:40 AM EST Office Visit [facility] [address] [place] [address] Hanane Mason Stage 2 grade B generalized periodontitis per AAP/EFP 2017 classification (Primary Dx); Encounter for dental examination; Dental caries 08/24/2024 Patient Outreach [facility] [address] [place] [address] Cordell Saba 08/16/2024 Patient Outreach [facility] [address] [place] [phone] Cordell Saba 08/16/2024 Patient Outreach [facility] [address] [place] [address] Cordell Saba 08/13/2024 Patient Outreach [facility] [address] [place] [address] Cordell Saba 08/13/2024 Patient Outreach [facility] [address] [place] [address] Cordell Saba 08/13/2024 Patient Outreach [facility] [address] [place] [address] Cordell Saba 08/12/2024 9:30 AM EST Office Visit [facility] [address] [place] [phone] Cherelle Vidal, OD Visual field defect (Primary Dx); Glaucoma suspect of both eyes 08/12/2024 Patient Outreach [facility] [address] [place] [phone] Cordell Saba 08/12/2024 Travel 07/29/2024 2:30 PM EST Office Visit [facility] [address] [place] [address] Cherelle Vidal, OD Routine eye exam (Primary Dx); Visual field defect; Glaucoma suspect of both eyes; Nuclear sclerosis of both eyes; Myopia of both eyes from Last 3 Months Family History Medical History Relation Name Comments Macular degeneration Maternal Grandmother Glaucoma Paternal Grandmother Relation Name Status Comments Maternal Grandmother Paternal Grandmother Social History Tobacco Use Types Packs/Day Years Used Date Smoking Tobacco: Never Smokeless Tobacco: Never Tobacco Cessation:Counseling Given: Not Answered Alcohol Use Standard Drinks/Week Comments Never 0 (1 standard drink = 0.6 oz pur e alcohol) Comments Unknown Sex and Gender Information Value Date Recorded Sex Assigned at Female 10/02/2023 9:46 AM EST Legal Sex Female 9:42 AM EST Gender Identity Female 10/02/2023 9:46 AM EST Sexual Orientation Straight 10/16/2023 12 :10 PM EDT Sexual Orientation Choose not to disclose 2023 12:10 PM EDT Last Filed Vital Signs Vital Sign Reading Time Taken Comments Blood Pressure 142/90 07/29/2024 2:15 PM EST Pulse - - Temperature 36.3 ??C (97.3 ??F) 07/29/2024 2:15 PM ES T Respiratory Rate - - Oxygen Saturation - - Inhaled Oxygen Concentration - - Weight - - Height - - Body Mass Index - - Plan of Treatment Upcoming Encounters Date Type Department Care Team (Late st Contact Info) Description 10/14/2024 11:00 AM EDT Office Visit [facility] [address] [place] [address] Jamison Briscoe LLD [address] [place] [address] 10/14/2024 2:00 PM EDT Office Visit [facility] [address] [place] [address] Marita Kirkpatrick LLD [address] [place] [address] 10/21/2024 11:00 AM EDT Office Visit [facility] [address] [place] [address] Jamison Briscoe LLD [address] [place] [address] 02/03/2025 10:00 AM EDT Office Visit [facility] [address] [place] [address] Young Cherelle, OD [address] [place] [address] 02/24/2025 12:00 PM EDT Office Visit [facility] [address] [place] [address] Hanane Mason Health Maintenance Due Date Last Done Comments CT Colonography 1961 Colonoscopy 1961 Colorectal Cancer Screening 1961 Depression Screening 1961 FIT DNA/Cologuard 1961 FIT 1961 FOBT 1961 HIV Screening 1961 Lipid Panel 1961 SDOH Screening 1961 Sigmoidoscopy 1961 Alcohol/Substance Use Screening 1973 Hepatitis C Screening 11/22/1979 Hepatitis A Vaccines (1 of 2 - Risk 2-dose series) 1980 Pap Smear 1982 Cervical Cancer Screening 11/22/1991 HPV/Cotest 11/22/1991 Hepatitis B Vaccines (1 of 3 - Risk 3-dose series) 2021 RSV Patients and Patients Aged 60 years or older (1 - Risk 60-74 years 1-dose series) 2021 Pneumococcal Vaccine: 50+ Years (3 of 3 - PPSV23, PCV20 or PCV21) 04/16/2023 04/16/2018, 06/09/2015 COVID-19 Vaccine (3 - Pfizer risk series) 06/10/2024 05/13/2024, 12/06/2021 Mammogram 09/11/2024 09/11/2022, 02/03/2023, 03/02/2019, Additional history exists Dental Oral Exam 02/24/2025 08/26/2024 Dental Prophylaxis 02/24/2025 08/26/2024 Tobacco Screening 08/26/2025 08/26/2024 Dental X-Ray: Bitewings 08/27/2025 08/26/2024 Dental X-Ray: Full Mouth 08/27/2027 08/26/2024, 08/05 DTaP/Tdap/Td Vaccines (3 - Td or Tdap) 11/04/2030 11/04/2020, 12/07/2018 Zoster Vaccines Completed 03/28/2022, 10/04/2021 Influenza Vaccine Completed 05/13/2024, , 04/29/2020, Additional history exists HIB Vaccines Aged Out No longer eligi ble based on patient's age to complete this topic HPV Vaccines Aged Out No longer eligi ble based on patient's age to complete this topic IPV Vaccines Aged Out No longer eligi ble based on patient's age to complete this topic Meningococcal Vaccine Aged Out No abdirahman nelsy eligible based on patient's age to complete this topic RSV under 20 months Aged Out No longe r eligible based on patient's age to complete this topic Rotavirus Vaccines Aged Out No longer eligible based on patient's age to complete this topic Procedures Procedure Name Priority Date/Time Associated Diagnosis Comments PANORAMIC RADIOGRAPHIC IMAGE Routine 08/26/2024 9:40 AM EST CASE PRESENTATION, DETAILED AND EXTENSIVE TREATMENT PLANNING Routine 08/26/2024 9:40 AM EST INTRAORAL - COMPLETE SERIES OF RADIOGRAPHIC IMAGES Routine 08/26/2024 9:40 AM EST ORAL HYGIENE INSTRUCTIONS Routine 08/26/2024 9:40 AM EST Full PROPHYLAXIS - ADULT Routine 08/26/2024 9:40 AM EST PERIODIC ORAL EVALUATION - ESTABLISHED PATIENT Routine 08/26/2024 9:40 AM EST 31 O COMPOSITE FILLING Routine 12:00 AM EST 4 MO COMPOSITE FILLING Routine 12:00 AM EST 13 PFM CROWN Routine 08/26/2024 12:00 AM EST 14 PFM CROWN Routine 08/26/2024 12:00 AM EST 18 PFM CROWN Routine 08/26/2024 12:00 AM EST 12 MOD COMPOSITE FILLING Routine 08/26/2024 12:00 AM EST 10 PREFABRICATED POST AND CORE IN ADDITION TO CROWN Routine 08/26/2024 12:00 AM EST 9 PREFABRICATED POST AND CORE IN ADDITION TO CROWN Routine 08/26/2024 12:00 AM EST 9 PREFABRICATED POST AND CORE IN ADDITION TO CROWN Routine 08/26/2024 12:00 AM EST 10 ROOT CANAL Routine 08/26/2024 12:00 AM EST 9 ROOT CANAL Routine 08/26/2024 12:00 AM EST 20 MOD COMPOSITE FILLING Routine 08/26/2024 12:00 AM EST 29 PFM CROWN Routine 08/26/2024 12:00 AM EST 29 PREFABRICATED POST AND CORE IN ADDITION TO CROWN Routine 08/26/2024 12:00 AM EST 29 ROOT CANAL Routine 08/26/2024 12:00 AM EST 3 MOD COMPOSITE FILLING Routine 08/26/2024 12:00 AM EST 8 IMPLANT SUPPORTED PORCELAIN/CERAMIC CROWN Routine 08/26/2024 12:00 AM EST 8 DENTAL IMPLANT Routine 08/26/2024 12:0 0 AM EST 8 EXTRACTION Routine 08/26/2024 12:00 AM EST 11 IMPLANT SUPPORTED PORCELAIN/CERAMIC CROWN Routine 08/26/2024 12:00 AM EST 11 DENTAL IMPLANT Routine 08/26/2024 12: 00 AM EST 11 EXTRACTION Routine 08/26/2024 12:00 AM EST 19 EXTRACTION Routine 08/26/2024 12:00 AM EST 15 EXTRACTION Routine 08/26/2024 12:00 AM EST 2 EXTRACTION Routine 08/26/2024 12:00 AM EST 30 EXTRACTION Routine 08/26/2024 12:00 AM EST 5 EXTRACTION Routine 08/26/2024 12:00 AM EST 32 EXTRACTION Routine 08/26/2024 12:00 AM EST 17 EXTRACTION Routine 08/26/2024 12:00 AM EST 16 EXTRACTION Routine 08/26/2024 12:00 AM EST 1 EXTRACTION Routine 08/26/2024 12:00 AM EST OCT, OPTIC NERVE - OU - BOTH EYES Routine 08/12/2024 Visual field defect AUTOMATED VISUAL FIELD, EXTENDED - OU - BOTH EYES Routine 08/12/2024 Visual field defect AUTOMATED VISUAL FIELD, EXTENDED - OU - BOTH EYES Routine 08/02/2024 Visual field defect from Last 3 Months Results * OCT, Optic Nerve - OU - Both Eyes (08/12/2024) Impressions Cherelle Vidal, OD - 08/12/2024 Right eye (OD): Borderline RNFL sector inf/temp; GCC arcuate defect inf; establishing baseline Left eye (OS): RNFL/GCC is normal; establishing baseline Cherelle Vidal OD OPHTH TOMOGRAPHY Final Result * Automated Visual Field, Extended - OU - Both Eyes (08/12/2024) Impressions Cherelle Vidal, OD - 08/12/2024 Right eye (OD): reliable, 11%FN; sup/right quadrantanopia and some sup left quadrant defect; improved reliability from previous Left eye (OS): reliable; sup/left quadrantanopia; improved reliability from previous Cherelle Vidal OD OPHTH VISUAL FIELD Final Result * Automated Visual Field, Extended - OU - Both Eyes (08/02/2024) Impressions Cherelle Vidal, OD - 08/02/2024 Right eye (OD): reliable, superior arcuate defect; establishing baseline Left eye (OS): reliable, superior dense arcuate defect and early inf arc defect; establishing baseline Cherelle Vidal OD OPHTH VISUAL FIELD Final Result from Last 3 Months Insurance GENERIC MEDICARE ADVANTAGE on file [facility] HMO HSN FULL [facility] HMO DENTAL - HSN FULL (MEDICAID) Care Teams Scale Assembly Set Up Worker Relationship Specialty Start Date End Date Cordell Saba Health Navigator 08/12/24 CASSIDY DE LA FUENTE NPI ID: [id number] Address: [address] [place] [id number] Primary Care Physician [id number] Primary Care Provider 08/12/18
== END 2024-10-07 16:32 | disposition home or self-care (01) ==
PROVIDERS: PCP Family Medicine; Visit Provider Family Medicine
DX: I10 Essential (primary) hypertension (principal); J84.9 Interstitial pulmonary disease, unspecified; M34.9 Systemic sclerosis, unspecified; Z86.73 Personal history of transient ischemic attack (TIA), and cerebral infarction without residual deficits; E78.5 Hyperlipidemia, unspecified; E03.9 Hypothyroidism, unspecified; R01.1 Cardiac murmur, unspecified; J45.909 Unspecified asthma, uncomplicated; K31.89 Other diseases of stomach and duodenum; G89.29 Other chronic pain

== ENCOUNTER → 2024-10-07 14:47 | Outpatient (BNVA) | payer BC, SELFPAY | PROVIDERS: PCP Family Medicine; Visit Provider Family Medicine | DX: Z00.00 Encounter for general adult medical examination without abnormal findings (principal); I10 Essential (primary) hypertension; E78.5 Hyperlipidemia, unspecified; E03.9 Hypothyroidism, unspecified; J84.9 Interstitial pulmonary disease, unspecified; R01.1 Cardiac murmur, unspecified; J45.909 Unspecified asthma, uncomplicated; M34.9 Systemic sclerosis, unspecified; K31.89 Other diseases of stomach and duodenum; G89.29 Other chronic pain; Z86.73 Personal history of transient ischemic attack (TIA), and cerebral infarction without residual deficits; Z79.899 Other long term (current) drug therapy | CPT/HCPCS: 96127 ==

== ENCOUNTER 2024-10-12 14:20 | Outpatient (AMB) | payer BC, SELFPAY ==
--- NOTE | 2024-10-12 14:42 | A.OFFPC_ITS ---
Vital Signs 10/12/24 14:48 Height 5 ft 8 in Weight 225 lb 6 oz BMI 34.3 BP 120/80 Blood Pressure Location Rt brachial Position Sitting Respiration 14 Pulse 67 Pulse Source Pulse Oximeter Temp 97.7 F Temp Source Oral Pulse Oximetry (%) 97 Oxygen Delivery Method Room Air Intake Visit Reasons: f/u HTN, chronic conditions Intake Note: follow up for HTN Shredded Filler Machine Wrapper Layer Required: No Allergies Penicillins Allergy (Severe, Verified 10/12/24 14:48) Anaphylaxis morphine Adverse Reaction (Intermediate, Verified 10/12/24 14:48) Confusion Medication List - Last Reconciled 10/12/24 by Jayant Walker MD albuterol sulfate 2.5 mg continuous nebulization albuterol sulfate 90 mcg/actuation inhalation amlodipine-benazepril 5-10 mg 1 cap PO DAILY atorvastatin 80 mg PO DAILY budesonide 0.5 mg inhalation budesonide-formoterol 160-4.5 mcg/actuation inhalation clopidogrel 75 mg PO DAILY cyanocobalamin (vitamin B-12) 1,000 mcg IM fenofibrate nanocrystallized mg PO DAILY gabapentin 400 mg PO 3XD hydrochlorothiazide 50 mg PO QAM 90 days levetiracetam mg PO levothyroxine 200 mcg PO DAILY levothyroxine 50 mcg PO DAILY lidocaine 5% topical montelukast 10 mg PO DAILY mycophenolate mofetil mg PO syringe with needle, safety (BD Integra Syringe) As directed tramadol 50 mg PO zolpidem 10 mg PO Tobacco use date assessed: 10/07/24 Dental Screening Dental Screen Date: 10/07/24 HPI f/u HTN, chronic conditions HPI Details 63 y/o female presents to f/u HTN, chron ic conditions. Has had very high blood pressures and hx of CVA. Had prescribed her hydrochlorothiazide and was advised to take another tablet of her combo pill. Blood pressure today 120/80, 67p. She is on amlodipine-benazepril 5-10mg, hydrochlorothiazide 50mg. PFSH Family History (Updated 10/07/24 @ 15:41 by DAYANA Sigala) Maternal Grandmother FH: mental illness Brother FH: mental illness Sister FH: mental illness Father FH: mental illness Social History (Updated 10/07/24 @ 15:42 by DAYANA Sigala) Housing: Apartment Patient Tobacco Use Status: Never used Tobacco e-Cigarette/Vaping Use: Never Used Second Hand Smoke Exposure: No Substance Use Type: Other service: No Current occupational status: retired Current occupational exposures/hazards: No Cognitive needs: Yes (aphasia ) Hearing needs: No Vision needs: Yes Questionnaire PHQ-9 Over the last 2 weeks, how often have you been bothered by any of the following problems? 2. Feeling down, depressed, or hopeless: not at all Source: Developed by Drs. Venkatesh Acuna, Kay Garcia, Kings Rooney and colleagues, with an educational haim from [employer]. Thrive Questionnaire Date Thrive assessed: 10/07/24 I am a: Patient What is your living situation today?: I have a steady place to live Within the past 12 months, did the food you bought not last and you didn't have the money to get more?: Sometimes True Within the past 12 months, did you worry whether your food would run out before you got money to buy more?: Sometimes True Do you have trouble paying for medicines?: Yes Do you have trouble getting transportation to medical appointments?: Yes Do you have trouble paying your heating and electricity bill?: No Do you have trouble taking care of your child, family member or friend?: No Do you have trouble with day-to-day activities such as bathing, preparing meals, shopping, managing finances, etc.?: Yes Are you currently unemployed and looking for a job?: No Are you interested in more education?: Yes THRIVE Score: 3 FLEX-7 AMB Questionnaire FLEX-7 Date FLEX - 7 assessed: 10/07/24 Source: Developed by Drs. Venkatesh Acuna, Kay Garcia, Kings Rooney and colleagues, with an educational haim from [employer]. Review of Systems Const Denies chills, Denies fatigue, Denies fever(s), Denies headache(s) and Denies weakness ENT Denies dizziness and Denies headache(s) Card Denies chest pain, Denies lightheadedness, Denies dyspnea and Denies other (Palpitations) Resp Denies cough, Denies dyspnea, Denies wheezing and Denies other ( shortness of breath) Musc Denies numbness and Denies tingling Neuro Denies dizziness, Denies headache(s), Denies numbness, Denies tingling, Denies paresthesias and Denies weakness Psych Denies anxiety and Denies depression Endo Denies fatigue Aller/Immun Denies wheezing Physical exam (Primary Care) Vital Signs: Last Vital Signs Temp 97.7 F 10/12/24 14:48 Pulse 67 10/12/24 14:48 Resp 14 10/12/24 14:48 BP 120/80 10/12/24 14:48 Pulse Ox 97 10/12/24 14:48 Oxygen Delivery Method Room Air 10/12/24 14:48 BMI result Body Mass Index 34.3 Tobacco/Smoking Status: Tobacco use Status Tobacco use date assessed 10/07/24 10/12/24 14:42 Patient Tobacco Use Status Never used Tobacco 10/12/24 14:42 e-Cigarette/Vaping Use Never Used 10/12/24 14:42 Thrive Assessment: Date of Thrive Assessment Date Thrive assessed 10/07/24 10/12/24 14:42 Const General: no acute distress and well developed Nutritional Appearance: well nourished Orientation/consciousness: patient oriented x3 HENMT Head: Yes normocephalic and Yes atraumatic Eyes General: appearance normal, both eyes and all related structures Pupils: Equal, round and reactive pupils present EOM: EOMs intact bilaterally Resp Effort & Inspection: normal respiratory effort Auscultation: clear to auscultation bilaterally Cardio Rate: regular rate Rhythm: regular rhythm Heart sounds: S1 normal heart sound present, S2 normal heart sound present, no gallops, no murmurs and no rubs Neuro General: patient oriented x3 and gait normal Cranial nerves: Yes Equal, round and reactive pupils present Psych Affect: normal affect Coding Level of Care Code Est Pt Level 3 (26255) Diagnoses Hypertension I10 History of CVA (cerebrovascular accident) Z86.73 Assessment & Plan Assessment & Plan (1) Hypertension: Code(s): I10 - Essential (primary) hypertension Category: Medical Plan: Blood?pressure?much?improved?and?at?goal?of?less?than?130/80 She?is?now?taking?amlodipine-benazepril?and?hydrochlorothiazide. 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 She?is?on?clopidogrel Awaiting?neurology?notes Keep?blood?pressure?controlled Orders: Orders AMB EKG-In Office Today I10 - Essential (primary) hypertension Referrals Dermatology Referral I10 - Essential (primary) hypertension, L70.9 - Acne, unspecified, M34.9 - Systemic sclerosis, unspecified, R21 - Rash and other nonspecific skin eruption
[2024-10-12 14:48] VITALS: BP 120/80; PULSE 67; RESP 14; TEMP 36.5; O2SAT 97; BMI 34.3
--- OUTSIDE RECORDS SUMMARY | 2024-10-12 17:36 | XMS_ITS | Encounter Summary ---
Author Organization [facility] Address [address] [place] [phone] Care Team Providers Care Tufting Machine Operator Single Needle Name Role Phone Sal Jose MD Primary Care Provider [phone] Encounter Details Date Type Department Care Team (Late Contact Info) Description 08/31/2024 Transcribed Orders [facility] Laboratory Specimens 55 [place] [address] System, Provider Not In CRST syndrome (HC [...] EDT Follow Up Pulmonary Critical [place] 136 [facility] 302 [place], [place] [id number] Ramon Nixon MD [address] [place] [phone] 04/28/2025 1:45 PM EDT Follow Up Stroke 800 [facility] [place] [address] Kristine Kelly MD PhD 800 [place] [address] 05/04/2025 1:00 PM EDT Follow Up Cardiovascular Medicine at 175 [facility] 175 [place] [address] Mike Hilario MD [address] [place] [address] 2 [place] [address] 07/20/2025 11:40 AM EST Follow Up Epilepsy & Seizures at 800 [facility] 800 [place] [address] Virgie Mast MD PhD 800 [place] [address] Scheduled Orders Name Type Priority Associated Diagnoses [...] documented as of this encounter Care Teams Tufting Machine Operator Single Needle Relationship Specialty Start Date End Date Sal Jose MD 1033 [facility] [address] [place] [phone] PCP - General Family Medicine 10/16/23 documented as of this encounter
--- OUTSIDE RECORDS SUMMARY | 2024-10-12 17:36 | XMS_ITS | Encounter Summary ---
Author Organization [facility] Address Unknown Care Team Providers Care Mortgage Loan Officer Originator Name Role Phone Sal Jose MD Primary Care Provider [phone] Encounter Details Date Type Department Care Team (Late st Contact Info) Description 11/27/2021 Scanned Document Pulmonary Critical [place] 136 [facility] 302 [place] [address] Gaviota Rivera, OT Social History Tobacco Use [...] 12:00 PM EDT Follow Up Pulmonary Critical [place] 136 [facility] 302 [place] [address] Ramon Nixon MD 136 [facility] 302 [place] [address] 04/28/2025 1:45 PM EDT Follow Up Stroke 800 [place] [address] Kristine Kelly MD PhD 800 [place] [address] 05/04/2025 1:00 PM EDT Follow Up Cardiovascular Medicine at 175 [facility] 175 [facility] [place] [address] Mike Hilario MD 175 [facility] [address] 2 [place] [address] 07/20/2025 11:40 AM EST Follow Up Epilepsy & Seizures at 800 [facility] 800 [facility] [place] [address] Virgie Mast MD PhD 800 [place] [phone] documented as of this encounter Visit Diagnoses Not on filedocumented in this encounter Care Teams Mortgage Loan Officer Originator Relationship Specialty Start Date End Date Sal Jose MD [address] [phone] PCP - General Family Medicine 10/16/23 documented as of this encounter
--- OUTSIDE RECORDS SUMMARY | 2024-10-12 17:36 | XMS_ITS | Encounter Summary ---
Author Organization [facility] Address Unknown Care Team Providers Care Transmission System Operator Name Role Phone Sal Jose MD Primary Care Provider Encounter Details Date Type Department Care Team (Late st Contact Info) Description 08/13/2023 Scanned Document Pulmonary Critical [place] [address] [address] External, Provider Social History Tobacco Use Types [...] EDT Follow Up Pulmonary Critical [place] 136 [facility] 302 [place] [address] Ramon Nixon MD 136 [facility] 302 [place] [address] 04/28/2025 1:45 PM EDT Follow Up Stroke 800 [place] [address] Kristine Kelly MD PhD 800 [place] [phone] 05/04/2025 1:00 PM EDT Follow Up Cardiovascular Medicine at 175 [facility] 175 [place] [address] Mike Hilario MD 175 [facility] [address] 2 [place] [address] 07/20/2025 11:40 AM EST Follow Up Epilepsy & Seizures at 800 [facility] 800 [facility] Lower [place], [place] [address] Virgie Mast MD PhD 800 [place] [phone] documented as of this encounter Visit Diagnoses Not on filedocumented in this encounter Care Teams Transmission System Operator Relationship Specialty Start Date End Date Sal Jose MD 1033 [facility] [address] [place] [phone] PCP - General Family Medicine 10/16/23 documented as of this encounter"
--- OUTSIDE RECORDS SUMMARY | 2024-10-12 17:36 | XMS_ITS | Encounter Summary ---
Author Organization [facility] Address [address] [address] Phone Care Team Providers Care Fruit Ii Farmworker Name Role Phone Sal Jose MD Primary Care Provider [phone] Reason for Visit * Reason Onset Date Comments Appointment 07/20/2024 Missed study Encounter Details Date Type Department Care Team ([facility] st Contact Info) Description 07/20/2024 Telephone [facility] - [address] [address] Nain Cat MD [address] [place] [phone] Appointment (Missed study ) Social History [...] EDT Follow Up [place]monary Critical [place] 136 [facility] [address] [place] [address] Ramon Nixon MD 136 [facility] 302 [place] [address] 04/28/2025 1:45 PM EDT Follow Up Stroke 800 [place] [address] Kristine Kelly MD PhD 800 [place] [address] 05/04/2025 1:00 PM EDT Follow Up Cardiovascular Medicine at 175 [facility] 175 [place] [address] Mike Hilario MD 175 [facility] 2 [place] [address] 07/20/2025 11:40 AM EST Follow Up Epilepsy & Seizures at 800 [facility] 800 [place] [address] Virgie Mast MD PhD 800 [place] [phone] documented as of this encounter Visit Diagnoses Not on filedocumented in this encounter Additional Health Concerns Assessment Noted Time PHQ-9 Depression Total Score: 0 04/07/20 24 2:31 PM EDT documented as of this encounter Care Teams Fruit Ii Farmworker Relationship Specialty Start Date End Date Sal Jose MD [facility] [address] [phone] PCP - General Family Medicine 10/16/23 documented as of this encounter
--- OUTSIDE RECORDS SUMMARY | 2024-10-12 17:36 | XMS_ITS | Encounter Summary ---
Author Organization [facility] Address Unknown Care Team Providers Care Pantry Cook Name Role Phone Sal Jose MD Primary Care Provider Encounter Details Date Type Department Care Team (Late st Contact Info) Description 08/27/2023 Scanned Document Pulmonary Critical [place] [address] [address] External, Provider Social History Tobacco Use Types [...] 12:00 PM EDT Follow Up Pulmonary Critical [place] 136 [facility] 302 [place] [address] Ramon Nixon MD 136 [facility] 302 [place] [address] 04/28/2025 1:45 PM EDT Follow Up Stroke 800 [place] [address] Kristine Kelly MD PhD 800 [place] [address] 05/04/2025 1:00 PM EDT Follow Up Cardiovascular Medicine at 175 [facility] 175 [place] [address] Mike Hilario MD 175 [facility] [address] 2 [place] [address] 07/20/2025 11:40 AM EST Follow Up Epilepsy & Seizures at 800 [facility] 800 [facility] Lower [place], [place] [address] Virgie Mast MD PhD 800 [place] [phone] documented as of this encounter Procedures Procedure Name Priority Date/Time Associated Diagnosis Comments CARDIAC ECHO RESULT SCAN Routine 08/27/2023 documented in this encounter Results * Cardiac Echo Result Scan (08/27/2023) Provider External CV CARDIAC REPORT (CVR) Final Result documented in this encounter Visit Diagnoses Not on filedocumented in this encounter Care Teams Pantry Cook Relationship Specialty Start Date End Date Sal Jose MD 1033 [facility] [address] [place] [phone] PCP - General Family Medicine 10/16/23 documented as of this encounter
--- OUTSIDE RECORDS SUMMARY | 2024-10-12 17:36 | XMS_ITS | Encounter Summary ---
Author Organization [facility] Address Unknown Care Team Providers Care Dice Maker Name Role Phone Sal Jose MD Primary Care Provider [phone] Encounter Details Date Type Department Care Team (Late st Contact Info) Description 05/11/2024 Scanned Document Pulmonary Critical [place] 136 [facility] [address] [place], [place] [address] Ramon Nixon MD 136 [facility] 302 [place] [phone] Social History Tobacco Use Types Packs/Day Years [...] EDT Follow Up [place]monary Critical [place] 136 [facility] [address] [place], [place] [address] Ramon Nixon MD 136 [facility] 302 [place] [address] 04/28/2025 1:45 PM EDT Follow Up Stroke 800 [place] [address] Kristine Kelly MD PhD 800 [place] [address] 05/04/2025 1:00 PM EDT Follow Up Cardiovascular Medicine at 175 [facility] 175 [facility] [address] Mike Hilario MD 175 [facility] 2 [place] [address] 07/20/2025 11:40 AM EST Follow Up Epilepsy & Seizures at 800 [facility] 800 [place] [address] Virgie Mast MD PhD 800 [place] [phone] documented as of this encounter Visit Diagnoses Not on filedocumented in this encounter Additional Health Concerns Assessment Noted Time PHQ-9 Depression Total Score: 0 04/07/20 2:31 PM EDT documented as of this encounter Care Teams Dice Maker Relationship Specialty Start Date End Date Sal Jose MD [facility] [address] [phone] PCP - General Family Medicine 10/16/23 documented as of this encounter
--- OUTSIDE RECORDS SUMMARY | 2024-10-12 17:36 | XMS_ITS | Encounter Summary ---
Author Organization [facility] Address Unknown Care Team Providers Care Choker Hooker Name Role Phone Sal Jose MD Primary Care Provider Encounter Details Date Type Department Care Team (Late st Contact Info) Description 08/13/2023 Scanned Document Pulmonary Critical [place] [address] [address] External, Provider Social History Tobacco Use Types [...] EDT Follow Up Pulmonary Critical [place] 136 [facility] 302 [place] [address] Ramon Nixon MD 136 [facility] 302 [place] [address] 04/28/2025 1:45 PM EDT Follow Up Stroke 800 [place] [address] Kristine Kelly MD PhD 800 [place] [address] 05/04/2025 1:00 PM EDT Follow Up Cardiovascular Medicine at 175 [facility] 175 [place] [address] Mike Hilario MD 175 [facility] [address] 2 [place] [address] 07/20/2025 11:40 AM EST Follow Up Epilepsy & Seizures at 800 [facility] 800 [facility] Lower [place], [place] [address] Virgie Mast MD PhD 800 [place] [phone] documented as of this encounter Visit Diagnoses Not on filedocumented in this encounter Care Teams Choker Hooker Relationship Specialty Start Date End Date Sal Jose MD 1033 [facility] [address] [place] [phone] PCP - General Family Medicine 10/16/23 documented as of this encounter
--- OUTSIDE RECORDS SUMMARY | 2024-10-12 17:36 | XMS_ITS | Encounter Summary ---
Author Organization [facility] Address [address] [place] [phone] Care Team Providers Care Zoning Engineer Name Role Phone Sal Jose MD Primary Care Provider Encounter Details Date Type Department Care Team (Late Contact Info) Description 07/21/2024 Transcribed Orders [facility] Laboratory Specimens 55 [place] [address] System, Provider Not In CRST syndrome (HC [...] EDT Follow Up Pulmonary Critical [place] 136 [facility] 302 [place], [place] [address] Ramon Nixon MD [address] [place] [phone] 04/28/2025 1:45 PM EDT Follow Up Stroke 800 [facility] [place] [address] Kristine Kelly MD PhD 800 [place] [address] 05/04/2025 1:00 PM EDT Follow Up Cardiovascular Medicine at 175 [facility] 175 [place] [address] Mike Hilario MD [address] [place] [address] 2 [place] [address] 07/20/2025 11:40 AM EST Follow Up Epilepsy & Seizures at 800 [facility] 800 [place] [address] Virgie Mast MD PhD 800 [facility] [place] [facility] [place] [phone] documented as of this encounter Results * Sedimentation rate (ESR) (07/23/2024 1:13 PM EST) Sedimentation Rate (ESR) 12 0 - 20 mm/hr 07/23/2024 2:55 PM EST [facility] MEDICINE Blood Venipuncture / Unknown 07/23/2024 1:13 PM EST 07/23/2024 2:24 PM EST us Provider Not In System LAB BLOOD ORDERABLES Evelin smith Result [facility]PART[facility] OF LABORATORY MEDICINE [address] [place] [address] documented in this encounter 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 [address] [phone] PCP - General Family Medicine 10/16/23 documented as of this encounter
--- OUTSIDE RECORDS SUMMARY | 2024-10-12 17:36 | XMS_ITS | Encounter Summary ---
Author Organization [facility] Address [address] [address] Phone Care Team Providers Care Ceo Ziff Davis Name Role Phone Sal Jose MD Primary Care Provider [phone] Encounter Details Date Type Department Care Team (Late Contact Info) Description 05/25/2024 Scanned Document [facility] - [address] [phone] Nain Cat MD [address] [place] [phone] Social History Tobacco Use Types Packs/Day [...] 12:00 PM EDT Follow Up Pulmonary Critical [address] [address] Ramon Nixon MD 136 [facility] 302 [place] [address] 04/28/2025 1:45 PM EDT Follow Up Stroke 800 [place] [address] Kristine Kelly MD PhD 800 [place] [address] 05/04/2025 1:00 PM EDT Follow Up Cardiovascular Medicine at 175 [facility] 175 [place] [address] Mike Hilario MD 175 [facility] 2 [place] [phone] 07/20/2025 11:40 AM EST Follow Up Epilepsy & Seizures at 800 [facility] 800 [place] [address] Virgie Mast MD PhD 800 [place] [address] documented as of this encounter Visit Diagnoses Not on filedocumented in this encounter Additional Health Concerns Assessment Noted Time PHQ-9 Depression Total Score: 0 04/07/20 2:31 PM EDT documented as of this encounter Care Teams Ceo Ziff Davis Relationship Specialty Start Date End Date Sal Jose MD [address] [place] [phone] PCP - General Family Medicine 10/16/23 documented as of this encounter
--- OUTSIDE RECORDS SUMMARY | 2024-10-12 17:36 | XMS_ITS | Encounter Summary ---
Author Organization [facility] Address [address] [place] [address] Care Team Providers Care Journeyman Press Operator Name Role Phone Sal Jose MD Primary Care Provider [phone] Encounter Details Date Type Department Care Team (Late Contact Info) Description 08/09/2014 Abstract [facility] at 175 [facility] 175 [place] [address] Emerita Beth MD 35 [place] [phone] Social History Tobacco Use Types Packs/Day Years [...] EDT Follow Up [place] Critical [place] 136 [facility] 302 [place], [place] [address] Ramon Nixon MD 136 [facility] 302 [place] [phone] 04/28/2025 1:45 PM EDT Follow Up [facility] Stroke 800 [place] [address] Kristine Kelly MD PhD 800 [place] [phone] 05/04/2025 1:00 PM EDT Follow Up Cardiovascular Medicine at 175 [facility] 175 [facility] [place] [address] Mike Hilario MD 175 [facility] 2 [place] [address] 07/20/2025 11:40 AM EST Follow Up Epilepsy & Seizures at 800 [facility] 800 [facility] [place], [place] [address] Virgie Mast MD PhD 800 [place] [phone] documented as of this encounter Visit Diagnoses Not on filedocumented in this encounter Care Teams Journeyman Press Operator Relationship Specialty Start Date End Date Sal Jose MD [address] [phone] PCP - General Family Medicine 10/16/23 documented as of this encounter
--- OUTSIDE RECORDS SUMMARY | 2024-10-12 17:36 | XMS_ITS | Encounter Summary ---
Author Organization [facility] Address Unknown Care Team Providers Care Geothermal Powerplant Supervisor Name Role Phone Sal Jose MD Primary Care Provider [phone] Encounter Details Date Type Department Care Team (Late st Contact Info) Description 11/19/2022 Scanned Document Pulmonary Critical [place] [address] [address] External, Provider Social History Tobacco Use Types [...] 12:00 PM EDT Follow Up Pulmonary Critical [place] 136 [facility] 302 [place] [address] Ramon Nixon MD 136 [facility] 302 [place] [phone] 04/28/2025 1:45 PM EDT Follow Up Stroke 800 [place] [address] Kristine Kelly MD PhD 800 [place] [phone] 05/04/2025 1:00 PM EDT Follow Up Cardiovascular Medicine at 175 [facility] 175 [place] [address] Mike Hilario MD 175 [facility] [address] 2 [place] [phone] 07/20/2025 11:40 AM EST Follow Up Epilepsy & Seizures at 800 [facility] 800 [facility] [place], [place] [address] Virgie Mast MD PhD 800 [place] [phone] documented as of this encounter Visit Diagnoses Not on filedocumented in this encounter Care Teams Geothermal Powerplant Supervisor Relationship Specialty Start Date End Date Sal Jose MD 1033 [facility] [address] [place] [phone] PCP - General Family Medicine 10/16/23 documented as of this encounter
--- OUTSIDE RECORDS SUMMARY | 2024-10-12 17:36 | XMS_ITS | Encounter Summary ---
Author Organization [facility] Address [address] [address] Phone Care Team Providers Care Parts Clerk Plant Maintenance Name Role Phone Sal Jose MD Primary Care Provider [phone] Reason for Visit * Reason Onset Date Comments Appointment 08/25/2024 Missed Study Encounter Details Date Type Department Care Team ([facility] st Contact Info) Description 08/25/2024 Telephone [facility] - [address] [address] Nain Cat MD [address] [place] [phone] Appointment (Missed Study ) Social History [...] EDT Follow Up Pulmonary Critical [place] 136 [facility] [address] [place] [address] Ramon Nixon MD 136 [facility] 302 [place] [address] 04/28/2025 1:45 PM EDT Follow Up Stroke 800 [place] [address] Kristine Kelly MD PhD [address] [place] [phone] 05/04/2025 1:00 PM EDT Follow Up Cardiovascular Medicine at 175 [facility] 175 [place] [address] Mike Hilario MD 175 [facility] 2 [place] [address] 07/20/2025 11:40 AM EST Follow Up Epilepsy & Seizures at 800 [facility] 800 [place] [address] Virgie Mast MD PhD [address] [place] [phone] documented as of this encounter Visit Diagnoses Not on filedocumented in this encounter Additional Health Concerns Assessment Noted Time PHQ-9 Depression Total Score: 0 04/07/20 24 2:31 PM EDT documented as of this encounter Care Teams Parts Clerk Plant Maintenance Relationship Specialty Start Date End Date Sal Jose MD [address] [phone] PCP - General Family Medicine 10/16/23 documented as of this encounter
--- OUTSIDE RECORDS SUMMARY | 2024-10-12 17:36 | XMS_ITS | Encounter Summary ---
Author Organization [facility] Address [address] [place] [phone] Care Team Providers Care Auto Clocks Repairer Name Role Phone Sal Jose MD Primary Care Provider Reason for Visit * Reason Onset Date Comments Holter/Event Monitor 11/13/2023 Trying to E nroll Pt for MCT monitor Encounter Details Date Type Department Care Team (Late st Contact Info) Description 11/13/2023 Telephone [facility] 800 [place], [place] [address] Kristine Kelly MD PhD 800 [place] [phone] Holter/Event Monitor (Trying to Enroll Pt for [...] EDT Follow Up [place]monary Critical [place] 136 [facility] 302 [place] [address] Ramon Nixon MD 136 [facility] 302 [place] [phone] 04/28/2025 1:45 PM EDT Follow Up [facility] Stroke 800 [place] [address] Kristine Kelly MD PhD 800 [place] [phone] 05/04/2025 1:00 PM EDT Follow Up Cardiovascular Medicine at 175 [facility] 175 [facility], [place] [address] Mike Hilario MD 175 [facility] [address] 2 [place] [phone] 07/20/2025 11:40 AM EST Follow Up Epilepsy & Seizures at 800 [facility] 800 [facility] [place] [address] Virgie Mast MD PhD [address] [place] [phone] documented as of this encounter Visit Diagnoses Not on filedocumented in this encounter Care Teams Auto Clocks Repairer Relationship Specialty Start Date End Date Sal Jose MD [facility] [address] [address] PCP - General Family Medicine 10/16/23 documented as of this encounter
--- OUTSIDE RECORDS SUMMARY | 2024-10-12 17:36 | XMS_ITS | Encounter Summary ---
Author Organization [facility] Address [address] [place] [phone] Care Team Providers Care Foreign Food Specialty Cook Name Role Phone Sal Jose MD Primary Care Provider [phone] Encounter Details Date Type Department Care Team (Late st Contact Info) Description 10/28/2023 Scanned Document [facility] at 800 [facility] 800 [place] [address] Joao Loredo MD 800 [place] [phone] Social History Tobacco Use Types Packs/Day Years [...] EDT Follow Up Pulmonary Critical [place] 136 [facility] [address] [place], [place] [address] Ramon Nixon MD 136 [facility] 302 [place] [phone] 04/28/2025 1:45 PM EDT Follow Up [facility] Stroke 800 [place] [address] Kristine Kelly MD PhD 800 [place] [phone] 05/04/2025 1:00 PM EDT Follow Up Cardiovascular Medicine at 175 [facility] 175 [place] [address] Mike Hilario MD 175 [facility] 2 [place] [address] 07/20/2025 11:40 AM EST Follow Up Epilepsy & Seizures at 800 [facility] 800 [place] [address] Virgie Mast MD PhD [address] [place] [phone] documented as of this encounter Visit Diagnoses Not on filedocumented in this encounter Care Teams Foreign Food Specialty Cook Relationship Specialty Start Date End Date Sal Jose MD [address] [phone] PCP - General Family Medicine 10/16/23 documented as of this encounter
--- OUTSIDE RECORDS SUMMARY | 2024-10-12 17:36 | XMS_ITS | Encounter Summary ---
Author Organization [facility] Address [address] [place] [phone] Care Team Providers Care Gripper Attacher Name Role Phone Sal Jose MD Primary Care Provider [phone] Encounter Details Date Type Department Care Team (Late Contact Info) Description 12/04/2023 Transcribed Orders [facility] Specimens [address] [place] [address] System, Provider Not In CREST variant of [...] EDT Follow Up Pulmonary Critical [place] 136 [facility] 302 [place], [place] [address] Ramon Nixon MD 136 [facility] 302 [place] [phone] 04/28/2025 1:45 PM EDT Follow Up [facility] Stroke 800 [place], [place] [address] Kristine Kelly MD PhD 800 [place] [address] 05/04/2025 1:00 PM EDT Follow Up Cardiovascular Medicine at 175 [facility] 175 [facility], [place] [address] Mike Hilario MD 175 [facility] Fl 2 [place] [address] 07/20/2025 11:40 AM EST Follow Up Epilepsy & Seizures at [address] [facility] [address] [facility] [place], [place] [phone] Virgie Mast MD PhD 800 [place] [address] documented as of this encounter Results * Sedimentation rate (ESR) (05/20/2024 12:53 PM EDT) Pathologist [facility] Sedimentation Rate (ESR) 4 0 - 20 mm/hr 05/20/2024 1:59 PM EDT [facility] DEPARTMENT OF LABORATORY MEDICINE Blood Venipuncture / Unknown 05/20/2024 12:53 PM EDT 05/20/2024 1:31 PM EDT us Provider Not In System LAB BLOOD ORDERABLES Evelin l Result [facility] DEPARTMENT OF LABORATORY MEDICINE [address] [place] [address] * (ABNORMAL) C-reactive protein (CRP) (04/15/2024 12:20 PM EDT) CRP, High Sensitivity 3.1(H) See comment mg/L 04/15/2024 3:42 PM EDT [facility] DEPARTMENT OF LABORATORY MEDICINE Comment: hs-CRP Risk [...] ORDERABLES Evelin l Result Performing Organization Address [facility] Co de Phone Number [facility] DEPARTMENT OF LABORATORY MEDICINE [address] [place] [address] * (ABNORMAL) Sedimentation rate (ESR) (04/15/2024 12:20 PM EDT) Sedimentation Rate (ESR) 24(H) 0 - 20 mm/hr 04/15/2024 3:41 PM EDT [facility] DEPARTMENT OF LABORATORY MEDICINE Blood Venipuncture / Unknown 04/15/2024 12:20 PM EDT 04/15/2024 2:54 PM EDT us Provider Not In System LAB BLOOD ORDERABLES Evelin l Result Performing Organization Address [facility] Co de Phone Number [facility] DEPARTMENT OF LABORATORY MEDICINE [address] [place] [address] * (ABNORMAL) C-reactive protein (CRP) (03/17/2024 10:36 AM EDT) CRP, High Sensitivity 6.3(H) See comment mg/L 03/17/2024 11:47 AM EDT [facility] DEPARTMENT OF LABORATORY MEDICINE Comment: hs-CRP Risk [...] ORDERABLES Evelin l Result Performing Organization Address [facility]/ZIP Co de Phone Number [facility] DEPARTMENT OF LABORATORY MEDICINE [address] [place] [address] * (ABNORMAL) Sedimentation rate (ESR) (03/17/2024 10:36 AM EDT) Sedimentation Rate (ESR) 23(H) 0 - 20 mm/hr 03/17/2024 11:46 AM EDT [facility] DEPARTMENT OF LABORATORY MEDICINE Blood Venipuncture / Unknown 03/17/2024 10:36 AM EDT 03/17/2024 11:15 AM EDT Provider Not In System LAB BLOOD ORDERABLES Evelin l Result Performing Organization Address [facility] de Phone Number [facility] DEPARTMENT OF LABORATORY MEDICINE [address] [place] [address] * (ABNORMAL) C-reactive protein (CRP) (02/20/2024 3:41 PM EDT) CRP, High Sensitivity 8.9(H) See comment mg/L 02/20/2024 4:36 PM EDT [facility] DEPARTMENT OF LABORATORY MEDICINE Comment: hs-CRP Risk [...] ORDERABLES Evelin l Result Performing Organization Address City/[facility] Co de Phone Number [facility] DEPARTMENT OF LABORATORY MEDICINE [address] [place] [address] * Sedimentation rate (ESR) (02/20/2024 3:41 PM EDT) Sedimentation Rate (ESR) 18 0 - 20 mm/hr 02/20/2024 7:04 PM EDT [facility] DEPARTMENT OF LABORATORY MEDICINE Blood Venipuncture / Unknown 02/20/2024 3:41 PM EDT 02/20/2024 4:04 PM EDT us Provider Not In System LAB BLOOD ORDERABLES Evelin l Result Performing Organization Address [facility] de Phone Number [facility] DEPARTMENT OF LABORATORY MEDICINE [address] [place] [address] * (ABNORMAL) C-reactive protein (CRP) (12/09/2023 1:52 PM EDT) CRP, High Sensitivity 4.4(H) See comment mg/L 12/09/2023 4:44 PM EDT [facility] DEPARTMENT OF LABORATORY MEDICINE Comment: hs-CRP Risk [...] ORDERABLES Evelin l Result Performing Organization Address [facility] Co de Phone Number [facility] DEPARTMENT OF LABORATORY MEDICINE [address] [place] [address] * Sedimentation rate (ESR) (12/09/2023 1:52 PM EDT) Sedimentation Rate (ESR) 10 0 - 20 mm/hr 12/09/2023 5:08 PM EDT [facility] DEPARTMENT OF LABORATORY MEDICINE Blood Venipuncture / Unknown 12/09/2023 1:52 PM EDT 12/09/2023 4:20 PM EDT us Provider Not In System LAB BLOOD ORDERABLES Evelin l Result [facility] DEPARTMENT OF LABORATORY MEDICINE [address] [place] [address], [facility] [phone] documented in this encounter 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 [address] [phone] PCP - General Family Medicine 10/16/23 documented as of this encounter
--- OUTSIDE RECORDS SUMMARY | 2024-10-12 17:36 | XMS_ITS | Clinical Summary ---
Author Organization [facility] Address [address] [place] [address] Phone Care Team Providers Care Job Recruiter Name Role Phone Sal Jose MD Primary Care Provider [phone] Allergies Active Allergy Reactions Criticality Noted Date Comments Morphine Hives High 10/16/2023 Penicillins Hives High 10/16/2023 Pregabalin Anxiety,Unknown High 11/25/2016 Cannot think straight while taking it. Procaine Nausea Low 10/19/2023 Medications amLODIPine-benaz epril (LOTREL) 5-10 mg per capsule Take by mouth. 3 Active montelukast (SINGULAIR) 10 mg tablet Take 1 tablet (10 mg total) by mouth nightly. 4 Active levothyroxine (SYNTHROID, LEVOTHROID) 200 MCG tablet Take 1 tablet (200 mcg total) by mouth daily. Active levothyroxine (SYNTHROID, LEVOTHROID) 50 MCG tablet Take 1 tablet (50 mcg total) by mouth daily. Active gabapentin (NEURONTIN) 400 mg capsule Take 1 capsule (400 mg total) by mouth. 4 Active mycophenolate mofetil (CELLCEPT) 250 mg capsule take 5 capsules by mouth twice a day 4 Active fenofibrate (TRICOR) 145 mg tablet Take 1 tablet (145 mg total) by mouth daily. 4 Active cyanocobalamin, vitamin B-12, (VITAMIN B-12 ORAL) Take by mouth. Activ e clopidogreL (PLAVIX) 75 mg tablet Take 1 tablet (75 mg total) by mouth daily. Active atorvastatin (LIPITOR) 80 mg tablet Take 1 tablet (80 mg total) by mouth daily. Active lidocaine (XYLOCAINE) 5 % ointment Apply topically daily. Active aspirin 81 mg EC delayed release tablet Take 1 tablet (81 mg total) by mouth daily. Active diclofenac sodium 1 % Kit Apply topically. Active b complex vitamins capsule Take 1 capsule by mouth daily. Active traMADoL (ULTRAM) 50 mg tablet Take 1 tablet (50 mg total) by mouth. Active pentoxifylline (TRENTAL) 400 mg extended release tablet Take 1 tablet (400 mg total) by mouth. 3 Active cetirizine (ZYRTEC) 10 mg tablet Take 1 tablet (10 mg total) by mouth daily. Active pantoprazole sodium (PROTONIX ORAL) Take by mouth. Activ e zolpidem (AMBIEN) 10 mg tablet Take 1 tablet (10 mg total) by mouth nightly as needed for sleep. Active BiPAP / CPAP With tubing and mask Autotitrate 5-20 mm Hg 3 Active predniSONE (DELTASONE) 20 mg tablet Take 2 tablets (40 mg total) by mouth daily. 4 Active albuterol sulfate (VENTOLIN HFA) 90 mcg/actuation HFA aerosol inhaler Inhale 2 puffs into the lungs every 4 (four) hours as needed for shortness of breath. 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 180 tablet 3 4 07/16/20 25 Active budesonide-formo teroL (SYMBICORT) 160-4.5 mcg/actuation HFA aerosol inhaler Inhale 2 puffs into the lungs 2 (two) times daily. 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, not intractable, without status epilepticus 04/17/2024 Obstructive sleep apnea of adult 04/17/2024 NSVT (nonsustained ventricular tachycardia) 04/04 Occlusion of right middle cerebral artery 2023 GERD (gastroesophageal reflux disease) Internal carotid artery stent present 10/19/2023 Carotid atherosclerosis, bilateral 10/19/2023 Subclavian steal syndrome of right subclavian ar danny 10/19/2023 Aneurysm of middle cerebral artery 10/19/2023 Left atrial enlargement 10/19/2023 Vitamin B 12 deficiency 10/19/2023 At risk for sleep apnea 10/19/2023 Impaired vision in both eyes 10/19/2023 Cognitive deficits 10/19/2023 Chronic ischemic right MCA stroke 02/12/2022 Carotid stenosis, symptomatic, with infarction 0 02/12/2022 HLD (hyperlipidemia) 02/08/2022 Other insomnia 03/05/2021 Nonalcoholic fatty liver disease 03/03/2019 Stage 2 chronic kidney disease 02/17/2019 Esophageal dysmotility 12/15/2018 Postinflammatory pulmonary fibrosis (HC Code) (H C CODE) 04/12/2016 Migraine without aura 04/09/2013 Sensory polyneuropathy 02/23/2013 Low back pain 09/02/2012 Raynaud's disease 08/26/2012 Interstitial lung disease (HC Code) (HC CODE) Inflammatory arthritis 06/19/2012 Primary hypertension 02/13/2012 Hypothyroidism 02/04/2012 Overview (10/19/2023): 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 Encounters Date Type Department Care Team Description 08/31/2024 4:00 PM EST Follow Up Pulmonary Critical [place] [facility] [address] [place] [address] Ramon Nixon MD ILD (interstitial lung disease) (HC Code) (HC CODE) (HC Code) (Primary Dx); Mild persistent asthma with acute exacerbation 08/31/2024 Scanned Document Pulmonary Critical [place] [facility] [address] [place] [address] Ramon Nixon MD 08/31/2024 Transcribed Orders [facility]ens [address] [place] [address] System, Provider Not In CRST syndrome (HC Code) (HC CODE) (HC Code) (Primary Dx) 08/25/2024 Telephone [facility] - [place] [address] [facility], [address] [place] [address] Nain Cat MD Appointment (Missed Study ) 08/11/2024 12:15 PM EST Telemedicine Pulmonary Critical [place] [address] [facility] [address] [place] [address] Ramon Nixon MD Mild persistent asthma with acute exacerbation (Primary Dx) 07/23/2024 1:07 PM EST - 07/23/2024 11:59 PM EST Hospital Encounter [facility] [address] [place] [address] System, Provider Not In Tech, [facility] CRST syndrome (HC Code) (HC CODE) (HC Code) Discharge Disposition: Home or Self Care 07/23/2024 12:20 PM EST - 07/23/2024 1:06 PM EST Hospital Encounter [facility] [place] [facility] Scan [address] [facility], [facility] 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, not intractable, without status epilepticus (HC Code) 07/21/2024 Transcribed Orders [facility] [address] [place] [address] System, Provider Not In CRST syndrome (HC Code) (HC CODE) (HC Code) (Primary Dx) 07/20/2024 Telephone [facility] - [address], [address] [place] [id number] Nain Cat MD Appointment (Missed study ) from Last 3 Months Immunizations Name Administration Dates Next Due Influenza, injectable, quad with preservative 04/01/2019,04/16/2018,04/16/2017 Influenza, injectable, quadr ivalent, preservative free 09/03/2021 Influenza, trivalent, inject able, contains preservative 06/09/2015,04/29/2014,04/23/2013,04/15 Influenza, unspecified formulation 04/29/2020, Pneumococcal conjugate PCV 13 06/09/2015 Pneumococcal polysaccharide PPSV23 04/16/2018 Tdap 11/04/2020,12/07/2018 ZOSTER RECOMBINANT (Shingrix) 03/28/2022, 022 Family History Medical History Relation Name Comments Emphysema Father Asthma Mother Relation Name Status Comments Father Mother Social History Tobacco Use Types Packs/Day Years Used Date Smoking Tobacco: Never Tobacco Cessation:Counseling Given: Not Answered Alcohol Use Standard Drinks/Week Comments Not Currently [...] on file Sexual Orientation Not on file Last Filed Vital Signs Vital Sign Reading Time Taken Comments Blood Pressure 196/83 07/21/2024 9:20 AM EST Pulse 75 08/31/2024 3:47 PM EST Temperature 35.9 ??C (96.7 ??F) 07/21/2024 9:13 AM ES T Respiratory Rate 16 08/31/2024 3:47 PM EST Oxygen Saturation 98% 08/31/2024 3:47 PM EST Inhaled Oxygen Concentration - - Weight 101.2 kg (223 lb) 08/31/2024 3:47 PM EST Height 172.7 cm (5' 8 ) 08/31/2024 3:47 PM EST Body Mass Index 33.91 08/31/2024 3:47 PM EST Plan of Treatment Upcoming Encounters Date Type Department Care Team (Late st Contact Info) Description 03/08/2025 12:00 PM EDT Follow Up Pulmonary Critical [place] [address] [facility] [address] [place] [address] Ramon Nixon MD 136 [facility] [address] [place] [phone] 04/28/2025 1:45 PM EDT Follow Up Stroke 800 [facility] [address] Kristine Kelly MD PhD [address] [place] [phone] 05/04/2025 1:00 PM EDT Follow Up Cardiovascular Medicine at 175 [facility] 175 [place] [address] Mike Hilario MD 175 [facility] [address] [place] [address] 07/20/2025 11:40 AM EST Follow Up Epilepsy & Seizures at 800 [facility] 800 [place] [address] Virgie Mast MD PhD 800 [place] [phone] Health Maintenance Due Date Last Done Comments HIV screening 1974 Hepatitis C screening 11/22/1979 Lipid disorder screening 2001 Colon cancer screening, Colonoscopy 2006 Cervical cancer screening 02/25/2019 02/25/2014 RSV Discussion (1 - Risk 60-74 years 1-dose series) 2021 Pneumococcal Vaccine (50+ years) (3 of 3 - PPSV23 or PCV20) 04/16/2023 04/16/2018, 06/09/2015 Influenza vaccine 03/04/2024 09/03/2021, , 04/01/2019, Additional history exists Covid-19 vaccine series (2 - season) 2024 12/06/2021 Breast cancer screening 09/11/2024 09/11/19, 09/11/2022, 03/02/2019, Additional history exists Diabetes screening 07/23/2027 07/23/2024, 1 , 04/15/2024, Additional history exists Tetanus adult (Td q 10,TDAP once) 11/04/2030 11/04/2020, 12/07/2018 Pneumococcal Vaccine (2 - 49 years) Discontinued 04/16/2018, 06/09/2015 Shingles vaccine (Shingrix) Completed 03/28/2022, 0 10/04/2021 Meningococcal Vaccine Aged Out No abdirahman nelsy eligible based on patient's age to complete this topic Procedures Procedure Name Priority Date/Time Associated Diagnosis Comments POC PFT (SPIROMETRY) Routine 08/31/2024 4:23 PM EST Mild persistent asthma with acute exacerbation PULMONARY FUNCTION TEST ([facility] ONLY) Routine 08/31/2024 4:13 PM EST CBC AND DIFFERENTIAL Routine 07/23/2024 1:13 PM EST CRST syndrome (HC Code) (HC CODE) (HC Code) COMPREHENSIVE METABOLIC PANEL Routine 07/23/2024 1:13 PM EST CRST syndrome (HC Code) (HC CODE) (HC Code) CBC WITH AUTO DIFFERENTIAL Routine 07/23/2024 1:13 PM EST CRST syndrome (HC Code) (HC CODE) (HC Code) COMPREHENSIVE METABOLIC PANEL Routine 07/23/2024 1:13 PM EST CRST syndrome (HC Code) (HC CODE) (HC Code) SEDIMENTATION RATE (ESR) Routine 07/23/2024 1:13 PM EST CRST syndrome (HC Code) (HC CODE) (HC Code) CT CHEST WO IV CONTRAST HIGH RESOLUTION ( Y LM Y) Routine 07/23/2024 1:07 PM EST ILD (interstitial lung disease) (HC Code) (HC CODE) (HC Code) from Last 3 Months Results * Pulmonary Function Test (08/31/2024 4:23 PM EST) FEV1 [facility] FVC [facility] FEV1/FVC [facility] TLC [facility] PE max %Post Pred [facility] FEF50 [facility] FIF50 [facility] 08/31/2024 4:23 PM EST Impressions [facility] - 08/31/2024 4:23 PM EST Mild restrictive pattern. Improvement after bronchodilator could indicate airway hyper-reactivity. Narrative [facility] - 08/31/2024 4:23 PM EST Spirometry: FVC is moderately reduced. . FEV1 is mildly reduced. FEV1/FVC ratio is normal. The significant improvement after bronchodilator may be effort related. Flow Volume Loop: Normal contour. Lung Volumes: TLC is mildly reduced. RV is normal. Diffusion Capacity: Mildly reduced. us Ramon Nixon MD POINT OF CARE TEST ORDERABLES Ed ited Result - Final [facility] [place], [place], [facility] * Pulmonary Function Test ([facility]) (08/31/2024 4:13 PM EST) us Ramon Nixon MD PFT ORDERABLES Final Result * Comprehensive metabolic panel (07/23/2024 1:13 PM EST) Sodium 144 136 - 144 mmol/L 07/23/2024 3:09 PM EST [facility] OF [facility]ORATORY MEDICINE Potassium 4.2 3.3 - 5.3 mmol/L 07/23/2024 3:09 PM [facility] DEPARTMENT OF LABORATORY MEDICINE Chloride 105 98 - 107 mmol/L 07/23/2024 3:09 PM [facility] MEDIC[facility] CO2 26 20 - 30 mmol/L 07/23/2024 3:09 PM [facility] MEDIC[facility] Anion Gap 13 7 - 17 07/23/2024 3:09 PM [facility] Glucose 89 70 - 100 mg/dL 07/23/2024 3:09 PM [facility] MEDIC[facility] BUN 13 8 - 23 mg/dL 07/23/2024 3:09 PM [facility] Creatinine 0.72 0.40 - 1.30 mg/dL 07/23/2024 3:09 PM [facility] Calcium 9.7 8.8 - 10.2 mg/dL 07/23/2024 3:09 PM [facility] BUN/Creatinine Ratio 18.1 8.0 - 23.0 07/23/2024 3:09 PM [facility] MEDIC[facility] Total Protein 6.7 5.9 - 8.3 g/dL 024 3:09 PM [facility] Comment:As of 2023, e reference interval for Total Protein has been changed from (6.6 to 8.7 g/dL) to (5.9 to 8.3 g/dL). Albumin 4.3 3.6 - 5.1 g/dL 07/23/2024 3:09 PM [facility] Comment:As of 2023, e reference interval for Albumin has been changed from (3.6 to 4.9 g/dL) to (3.6 to 5.1 g/dL). Total Bilirubin 0.6 <=1.2 mg/dL 07/23/20 3:09 PM [facility] Alkaline Phosphatase 113 9 - 122 U/L 07/23/2024 3:09 PM [facility] Alanine Aminotransferase (ALT) 27 10 - 35 U/L 07/23/2024 3:09 PM [facility] Comment:Calcium dobesilate c an cause artificially low ALT results at therapeutic concentrations Aspartate Aminotransferase (AST) 23 10 - 35 U/L 07/23/2024 3:09 PM [facility] Globulin 2.4 2.0 - 3.9 g/dL 07/23/2024 3:09 PM [facility] Comment:As of 2023, e reference interval for Globulin has been changed from (2.3 to 3.5 g/dL) to (2.0 to 3.9 g/dL). A/G Ratio 1.8 1.0 - 2.2 07/23/2024 3:09 PM [facility] MEDIC[facility] AST/ALT Ratio 0.9 Reference Range Not Established 07/23/2024 3:09 PM [facility] OF LAB[facility]ORY MEDICINE eGFR (Creatinine) >60 >=60 mL/min/1.73m2 07/23/2024 3:09 PM [facility] MEDIC[facility] Comment: [facility] utilizes CKD-EPI Creatinine 2020 to report eGFR. Values < 60 mL/min/1.73 m2 may indicate CKD if present for more than three months AND creatinine is at steady state. The eGFR provides a rough estimate of kidney function. For further guidance, please refer to the CKD: Adult Robotype Operator Signature pathway. Creatinine Delta 0.01 See Comment 024 3:09 PM [facility]PARTMENT OF LABORATORY MEDICINE Comment: Delta creatinine is the difference between the current creatinine and the most recent prior creatinine (if available within the previous 12 months). It is intended to detect significant changes in kidney function for patients whose creatinine is <5 mg/dL. A delta is not calculated for patients whose baseline creatinine is >=5 mg/dL or those who do not have a baseline within the last year. The following deltas will flag as critical (triggering a call from the laboratory): a) Deltas >= +1.5 mg/dL for patients with baseline creatinine <= 1.5 mg/dL. b) Deltas >= +3 mg/dL for patients with baseline creatinine between 1.5 and 5 mg/dL. Blood Venipuncture / Unknown 07/23/2024 1:13 PM EST 07/23/2024 2:35 PM EST us Provider Not In System LAB BLOOD ORDERABLES Evelin l Result [facility] DEPARTMENT OF LABORATORY MEDICINE [address] [place] [address] * Sedimentation rate (ESR) (07/23/2024 1:13 PM EST) Sedimentation Rate (ESR) 12 0 - 20 mm/hr 07/23/2024 2:55 PM EST [facility] MEDIC[facility] Blood Venipuncture / Unknown 07/23/2024 1:13 PM EST 07/23/2024 2:24 PM EST us Provider Not In System LAB BLOOD ORDERABLES Evelin l Result Performing Organization Address [facility] Co de Phone Number [facility] OF LABORATORY MEDICINE [address] [place] [address] * CBC auto differential (07/23/2024 1:13 PM EST) WBC 7.7 4.0 - 11.0 x1000/??L 07/23/2024 2:38 PM [facility] OF LABORATORY MEDICINE RBC 4.25 4.00 - 6.00 M/??L 07/23/2024 2:38 PM [facility] MEDIC[facility] Hemoglobin 12.7 11.7 - 15.5 g/dL 07/23/2024 2:38 PM [facility] LAB[facility]ORY MEDICINE Hematocrit 38.70 35.00 - 45.00 % 07/23/2024 2:38 PM [facility] OF LABORATORY MEDICINE MCV 91.1 80.0 - 100.0 fL 07/23/2024 2:38 PM [facility] MEDIC[facility] MCH 29.9 27.0 - 33.0 pg 07/23/2024 2:38 PM [facility] OF LABORATORY MEDICINE MCHC 32.8 31.0 - 36.0 g/dL 07/23/2024 2:38 PM [facility] OF LAB[facility]ATORY MEDICINE RDW-CV 14.0 11.0 - 15.0 % 07/23/2024 2:38 PM [facility] MEDICINE Platelets 276 150 - 420 x1000/??L 07/23/2024 2:38 PM [facility] MEDIC[facility] MPV 11.1 8.0 - 12.0 fL 07/23/2024 2:38 PM [facility] MEDIC[facility] Neutrophils 61.4 39.0 - 72.0 % 07/23/2024 2:38 PM [facility] MEDIC[facility] Lymphocytes 27.6 17.0 - 50.0 % 07/23/2024 2:38 PM [facility] MEDIC[facility] Monocytes 8.0 4.0 - 12.0 % 07/23/2024 2:38 PM [facility] MED[facility] Eosinophils 1.8 0.0 - 5.0 % 07/23/2024 2:38 PM [facility] MED[facility] Basophil 0.8 0.0 - 1.4 % 07/23/2024 2:38 PM [facility] Immature Granulocytes 0.4 0.0 - 1.0 % 07/23/2024 2:38 PM [facility]IC[facility] nRBC 0.0 0.0 - 1.0 % 07/23/2024 2:38 PM [facility] Absolute Lymphocyte Count 2.13 0.60 - 3.70 x 1000/??L 07/23/2024 2:38 PM [facility] MEDIC[facility] Monocyte Absolute Count 0.62 0.00 - 1.00 x 1000/??L 07/23/2024 2:38 PM [facility] MEDIC[facility] Eosinophil Absolute Count 0.14 0.00 - 1.00 x 1000/??L 07/23/2024 2:38 PM [facility] LAB[facility]ORY MEDICINE Basophil Absolute Count 0.06 0.00 - 1.00 x 1000/??L 07/23/2024 2:38 PM [facility] MEDIC[facility] Absolute Immature Granulocyte Count 0.03 0.00 - 0.30 x 1000/??L 07/23/2024 2:38 PM [facility] MEDIC[facility] Absolute nRBC 0.00 0.00 - 1.00 x 1000/??L 07/23/2024 2:38 PM EST [facility] LAB[facility]ORY MEDICINE ANC (Abs Neutrophil Count) 4.75 2.00 - 7.60 x 1000/??L 07/23/2024 2:38 PM EST [facility] LAB[facility]ORY MEDIC[facility] Blood Venipuncture / Unknown 07/23/2024 1:13 PM EST 07/23/2024 2:24 PM EST us Provider Not In System LAB BLOOD ORDERABLES Evelin l Result [facility] DEPARTMENT OF LABORATORY MEDICINE [address] [place] [address], [facility] [phone] * CT Chest wo IV Contrast High Resolution ([facility]) (07/23/2024 1:07 PM EST) Anatomical Region Laterality Modality Chest Computed Tomogra phy 07/23/2024 3:26 PM EST Impressions 07/23/2024 4:28 PM EST Similar appearance of peribronchial predominant ground glass opacities and subpleural reticulations with traction bronchiectasis, 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 No significant changes since prior examination dated October 15, 2015. [facility] Radiology Notify System Classification: Routine. Report initiated by: ??Riccardo Bernal MD Reported and signed by: Nithya De Los Santos MD [facility] Narrative 07/23/2024 4:[address] CHEST WO IV CONTRAST HIGH RESOLUTION ([facility]) ??Date: ??07/23/2024 1:07 PM INDICATION: Diffuse/interstitial lung disease ild ILD protocol. COMPARISON: [facility] CT CHEST 2015-10-15 TECHNIQUE: Contiguous CT axial sections were obtained from the upper thorax to the upper abdomen during inspiration and expiration. No intravenous contrast was administered. Coronal and sagittal reformatted images were also provided. Exam quality: Inspiratory and expiratory images were adequate. ??No significant motion artifact. FINDINGS: Lungs/Airways/Pleura: Similar appearance of peribronchial predominant groundglass opacities, subpleural reticulations and traction bronchiectasis, overall similar to prior examination dated October 15, 2015. The airways are patent. No pleural effusions No significant air trapping on the expiratory images. No new or enlarging pulmonary nodules. Mediastinum/Lymph nodes: No enlarged lymph nodes. Heart and Vessels: ??Normal heart size. ??No pericardial effusion. No thoracic aortic aneurysm. ??The pulmonary artery is normal size. Mild atherosclerotic calcifications of the coronary arteries. Visualized Upper Abdomen: Unremarkable. Bones and Soft Tissues: No suspicious bone lesions. Procedure Note Nithya De Los Santos MD - 07/23/2024 CT CHEST WO IV CONTRAST HIGH RESOLUTION ([facility]) Date:07/23/2024 1:07 PM INDICATION: Diffuse/interstitial lung disease ild ILD protocol. COMPARISON: [facility] CT CHEST 2015-10-15 TECHNIQUE: Contiguous CT axial sections were obtained from the upperthorax to the upper abdomen during inspiration and expiration. Nointravenous contrast was administered. Coronal and sagittal reformattedimages were also provided. Exam quality: Inspiratory and expiratory images were adequate. Nosignificant motion artifact. FINDINGS: Lungs/Airways/Pleura: Similar appearance of peribronchial predominantgroundglass opacities, subpleural reticulations and tractionbronchiectasis, overall similar to prior examination dated October 15, 2015.The airways are patent. No pleural effusions No significant air trappingon the expiratory images. No new or enlarging pulmonary nodules. Mediastinum/Lymph nodes: No enlarged lymph nodes. Heart and Vessels: Normal heart size. No pericardial effusion. Nothoracic aortic aneurysm. The pulmonary artery is normal size. Mildatherosclerotic calcifications of the coronary arteries. Visualized Upper Abdomen: Unremarkable. Bones and Soft Tissues: No suspicious bone lesions. 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 No significantchanges since prior examination dated October 15, 2015. [facility] Radiology Notify System Classification: Routine. Report initiated by: Riccardo Bernal MD Reported and signed by: Nithya De Los Santos MD [facility] Ramon Nixon MD [facility] CT ORDERABLES Final Result from Last 3 Months Insurance 1-D Jerry [place]ARC[place] [id number] [facility] MGD 1-D Jerry [place]ARC[place] [id number] [facility] [place] [address] [id number] [facility] 1-[place] [id number] [employer] M[place]GD 1-[place] [id number] [facility] Care Teams Job Recruiter Relationship Specialty Start Date End Date Sal Jose MD [address] [facility] [address] [place] [phone] PCP - General Family Medicine 10/16/23
--- OUTSIDE RECORDS SUMMARY | 2024-10-12 17:36 | XMS_ITS | Clinical Summary ---
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 DENTAL [address] [place] [address] Hanane Mason Stage 2 grade B generalized periodontitis per AAP/EFP 2017 classification (Primary Dx); Encounter for dental examination; Dental caries 08/24/2024 Patient Outreach [facility] Case Management [address] [place] [address] Cordell Saba 08/16/[address] [facility] MEDICAL [address] [place] [phone] Cordell Saba 08/16/[address] [facility] MEDICAL [address] [place] [phone] Cordell Saba 08/13/[address] [facility] MEDICAL [address] [place] [address] Cordell Saba 08/13/[address] [facility] MEDICAL [address] [place] [address] Cordell Saba 08/13/[address] [facility] MEDICAL [address] [place] [address] Cordell Saba 08/12/2024 9:30 AM EST Office Visit [facility] OPTOMETRY [address] [place] [address] Cherelle Vidal, OD Visual field defect (Primary Dx); Glaucoma suspect of both eyes 08/12/[address] [facility] MEDICAL [address] [place] [address] Cordell Saba 08/12/2024 Travel 07/29/2024 2:30 PM EST Office Visit [facility] OPTOMETRY [address] [place] [address] Cherelle Vidal, OD Routine eye exam (Primary [...] Description 10/14/2024 11:00 AM EDT Office Visit [facility] DENTAL [address] [place] [address] Jamison Briscoe LLD [address] [place] [address] 10/14/2024 2:00 PM EDT Office Visit [facility] DENTAL [address] [place] [address] Marita Kirkpatrick LLD [address] [place] [address] 10/21/2024 11:00 AM EDT Office Visit [facility] DENTAL [address] [place] [address] Jamison Briscoe LLD [address] [place] [address] 02/03/2025 10:00 AM EDT Office Visit [facility] OPTOMETRY [address] [place] [address] Young Cherelle, OD [address] [place] [address] 02/24/2025 12:00 PM EDT Office Visit [facility] DENTAL [address] [place] [address] Hanane Mason Health Maintenance Due Date Last [...] Insurance GENERIC MEDICARE ADVANTAGE on file [facility] HMO HSN FULL [facility] HMO DENTAL - HSN FULL (MEDICAID) Care Teams Bladder Blower Relationship Specialty Start Date End Date Cordell Saba Health Navigator 08/12/24 CASSIDY DE LA FUENTE NPI ID: [id number] Address: [address] [place] [phone] Primary Care Physician [id number] Primary Care Provider 08/12/18
--- OUTSIDE RECORDS SUMMARY | 2024-10-12 17:36 | XMS_ITS | Encounter Summary ---
Author Organization [facility] Address Unknown Care Team Providers Care Visiting Teacher Name Role Phone Sal Jose MD Primary Care Provider [phone] Encounter Details Date Type Department Care Team (Late st Contact Info) Description 11/19/2022 Scanned Document Pulmonary Critical [place] [address] [address] External, Provider Social History Tobacco Use Types [...] 12:00 PM EDT Follow Up Pulmonary Critical [place] 136 [facility] 302 [place] [address] Ramon Nixon MD 136 [facility] 302 [place] [address] 04/28/2025 1:45 PM EDT Follow Up Stroke 800 [place] [address] Kristine Kelly MD PhD 800 [place] [address] 05/04/2025 1:00 PM EDT Follow Up Cardiovascular Medicine at 175 [facility] 175 [facility] [place] [address] Mike Hilario MD 175 [facility] Fl 2 [place] [address] 07/20/2025 11:40 AM EST Follow Up Epilepsy & Seizures at [address] [facility] [address] [facility] Lower [place] [address] Virgie Mast MD PhD 800 [place] [address] documented as of this encounter Visit Diagnoses Not on filedocumented in this encounter Care Teams Visiting Teacher Relationship Specialty Start Date End Date Sal Jose MD 1033 [facility] [place] [facility] [address] [place] [phone] PCP - General Family Medicine 10/16/23 documented as of this encounter
--- OUTSIDE RECORDS SUMMARY | 2024-10-12 17:36 | XMS_ITS | Encounter Summary ---
Author Organization [facility] Address [address] [place] [address] Care Team Providers Care Crown Buffer Name Role Phone Sal Jose MD Primary Care Provider Encounter Details Date Type Department Care Team (Late st Contact Info) Description 10/28/2023 Scanned Document [facility] at 800 [facility] 800 [place] [address] Joao Loredo MD 800 [place] [phone] Social History Tobacco Use Types Packs/Day Years [...] EDT Follow Up Pulmonary Critical [place] 136 [facility] [address] [place], [place] [address] Ramon Nixon MD 136 [facility] 302 [place] [address] 04/28/2025 1:45 PM EDT Follow Up [facility] Stroke 800 [facility] [place] [address] Kristine Kelly MD PhD 800 [place] [address] 05/04/2025 1:00 PM EDT Follow Up Cardiovascular Medicine at 175 [facility] 175 [place] [address] Mike Hilario MD 175 [facility] 2 [place] [address] 07/20/2025 11:40 AM EST Follow Up Epilepsy & Seizures at 800 [facility] 800 [facility] [place] [address] Virgie Mast MD PhD 800 [place] [address] documented as of this encounter Procedures Procedure [...] on filedocumented in this encounter Care Teams Crown Buffer Relationship Specialty Start Date End Date Sal Jose MD [address] [phone] PCP - General Family Medicine 10/16/23 documented as of this encounter
--- OUTSIDE RECORDS SUMMARY | 2024-10-12 17:36 | XMS_ITS | Encounter Summary ---
Author Organization [facility] Address [address] [place] [phone] Care Team Providers Care Stakes Player Name Role Phone Sal Jose MD Primary Care Provider [phone] Encounter Details Date Type Department Care Team (Late st Contact Info) Description 10/28/2023 Scanned Document CARE CENTER SCHEDULING 25 [place], [place] [address] Provider, Historical . [phone] (Fax) Social History Tobacco Use Types Packs/Day [...] EDT Follow Up Pulmonary Critical [place] 136 [facility] [address] [place] [address] Ramon Nixon MD 136 [facility] [address] 302 [place] [address] 04/28/2025 1:45 PM EDT Follow Up Stroke 800 [facility] [place] [address] Kristine Kelly MD PhD 800 [place] [address] 05/04/2025 1:00 PM EDT Follow Up Cardiovascular Medicine at 175 [facility] 175 [facility] [place] [address] Mike Hilario MD 175 [facility] Fl 2 [place] [address] 07/20/2025 11:40 AM EST Follow Up Epilepsy & Seizures at 800 [facility] 800 [facility] [place] [address] Virgie Mast MD PhD 800 [facility] [place], [place] [address] documented as of this encounter Procedures Procedure [...] on filedocumented in this encounter Care Teams Stakes Player Relationship Specialty Start Date End Date Sal Jose MD 1033 [facility] [address] [place] [phone] PCP - General Family Medicine 10/16/23 documented as of this encounter
--- OUTSIDE RECORDS SUMMARY | 2024-10-12 17:36 | XMS_ITS | Encounter Summary ---
Author Organization [facility] and [facility] Address [address] [place] [address] Care Team Providers Care Professor Of Marketing Name Role Phone Sal Jose MD Primary Care Provider Encounter Details Date Type Department Care Team (Late st Contact Info) Description 08/13/2023 Scanned Document EXTERNAL REFERRAL SOURCE 20 [place] [address] External, Provider Social History Tobacco Use Types [...] EDT Follow Up [place]monary Critical [place] 136 [facility] 302 [place] [address] Ramon Nixon MD 136 [facility] 302 [place] [address] 04/28/2025 1:45 PM EDT Follow Up Stroke 800 [place] [address] Kristine Kelly MD PhD 800 [place] [address] 05/04/2025 1:00 PM EDT Follow Up Cardiovascular Medicine at 175 [facility] 175 [place], [place] [address] Mike Hilario MD 175 [facility] 2 [place] [address] 07/20/2025 11:40 AM EST Follow Up Epilepsy & Seizures at 800 [facility] 800 [facility] Lower [place], [place] [address] Virgie Mast MD PhD 800 [place] [address] documented as of this encounter Visit Diagnoses Not on filedocumented in this encounter Care Teams Professor Of Marketing Relationship Specialty Start Date End Date Sal Jose MD [address] [place] [phone] PCP - General Family Medicine 10/16/23 documented as of this encounter
--- OUTSIDE RECORDS SUMMARY | 2024-10-12 17:36 | XMS_ITS | Encounter Summary ---
Author Organization [facility] Address Unknown Care Team Providers Care Manufacturing Machine Operator Name Role Phone Sal Jose MD Primary Care Provider [phone] Encounter Details Date Type Department Care Team (Late st Contact Info) Description 11/27/2021 Scanned Document Pulmonary Critical [place] [address] [address] External, Provider Social History Tobacco Use Types [...] 12:00 PM EDT Follow Up Pulmonary Critical [place] 136 [facility] 302 [place] [address] Ramon Nixon MD 136 [facility] 302 [place] [address] 04/28/2025 1:45 PM EDT Follow Up Stroke 800 [place] [address] Kristine Kelly MD PhD 800 [place] [address] 05/04/2025 1:00 PM EDT Follow Up Cardiovascular Medicine at 175 [facility] 175 [place] [address] Mike Hilario MD 175 [facility] Fl 2 [place] [address] 07/20/2025 11:40 AM EST Follow Up Epilepsy & Seizures at 800 [facility] 800 [facility] Lower [place], [place] [address] Virgie Mast MD PhD 800 [place] [address] documented as of this encounter Visit Diagnoses Not on filedocumented in this encounter Care Teams Manufacturing Machine Operator Relationship Specialty Start Date End Date Sal Jose MD 1033 [facility] [address] [place] [phone] PCP - General Family Medicine 10/16/23 documented as of this encounter
--- OUTSIDE RECORDS SUMMARY | 2024-10-12 17:36 | XMS_ITS | Encounter Summary ---
Author Organization [facility] Address [address] [place] [phone] Care Team Providers Care Flooring Salesperson Name Role Phone Sal Jose MD Primary Care Provider [phone] Encounter Details Date Type Department Care Team (Late st Contact Info) Description 10/28/2023 Scanned Document [facility] at 800 [facility] 800 [place] [address] Joao Loredo MD 800 [place] [address] Social History Tobacco Use Types Packs/Day Years [...] EDT Follow Up [place]monary Critical [place] 136 [facility] [address] [place], [place] [address] Ramon Nixon MD 136 [facility] 302 [place] [address] 04/28/2025 1:45 PM EDT Follow Up YM Stroke 800 [place] [address] Kristine Kelly MD PhD 800 [place] [address] 05/04/2025 1:00 PM EDT Follow Up Cardiovascular Medicine at 175 [facility] 175 [place] [address] Mike Hilario MD 175 [facility] 2 [place] [address] 07/20/2025 11:40 AM EST Follow Up Epilepsy & Seizures at 800 [facility] 800 [place] [address] Virgie Mast MD PhD [address] [place] [address] documented as of this encounter Procedures Procedure [...] MRI Result Scan (04/12/2020 12:01 PM EDT) [facility] Provider IMG SCAN REPORTS Final Resul t * MRI Result Scan (04/12/2020 11:55 AM EDT) Historical Provider IMG SCAN REPORTS Final Resul t * MRI Result Scan (04/08/2020 12:04 PM EDT) [facility] Provider IMG SCAN REPORTS Final Resul [...] CT Result Scan (09/28/2012 12:30 PM EST) [facility] Provider IMG SCAN REPORTS Final Resul t * CT Result Scan (09/07/2012 12:34 PM EST) [facility] Provider IMG SCAN REPORTS Final Resul t * CT Result Scan (02/13/2012 12:38 PM EDT) Historical Provider IMG SCAN REPORTS Final Resul t * CT Result Scan (12/17/2010 1:03 PM EDT) [facility] Provider IMG SCAN REPORTS Final Resul t * CT Result Scan (12/17/2010 1:00 PM EDT) [facility] Provider IMG SCAN REPORTS Final Resul t * CT Result Scan (12/17/2010 12:56 PM EDT) Result [facility] Provider IMG SCAN REPORTS Final Resul t * CT Result Scan (12/17/2010 12:52 PM EDT) Result [facility] Provider IMG SCAN REPORTS Final Resul t * CT Result Scan (12/17/2010 12:46 PM EDT) [facility] Provider IMG SCAN REPORTS Final Resul t * CT Result Scan (12/17/2010 12:41 PM EDT) Historical Provider IMG SCAN REPORTS Final Resul t documented in this encounter Visit Diagnoses Not on filedocumented in this encounter Care Teams Flooring Salesperson Relationship Specialty Start Date End Date Sal Jose MD [address] [phone] PCP - General Family Medicine 10/16/23 documented as of this encounter
--- OUTSIDE RECORDS SUMMARY | 2024-10-12 17:36 | XMS_ITS | Encounter Summary ---
Author Organization [facility] Address Unknown Care Team Providers Care Human Resources Representative Name Role Phone Sal Jose MD Primary Care Provider [phone] Reason for Referral * General (Routine) - New Request Specialty Diagnoses / Procedures Referred By Contac t Referred To Contact Pulmonary Disease Procedures Pulmonary Function Test ([facility]) Ramon Nixon MD [address] [place] [address] 302 [place] [address] Phone: tel: fax: Referral ID Status Reason Start Date Expiration Date V isits Requested Visits Authorized [id number] New Request 08/31/2024 08/31/2025 1 1 Encounter Details Date Type Department Care Team (Late st Contact Info) Description 08/31/2024 Scanned Document Pulmonary Critical [place] 136 [facility] 302 [place], [place] [id number] Ramon Nixon MD [address] [place] [address] 302 [place] [address] Social History Tobacco Use Types [...] EDT Follow Up [place]monary Critical [place] 136 [facility] [address] [place] [address] Ramon Nixon MD 136 [facility] 302 [place] [address] 04/28/2025 1:45 PM EDT Follow Up Stroke 800 [place] [address] Kristine Kelly MD PhD 800 [place] [address] 05/04/2025 1:00 PM EDT Follow Up Cardiovascular Medicine at 175 [facility] 175 [place] [address] Mike Hilario MD 175 [facility] 2 [place] [address] 07/20/2025 11:40 AM EST Follow Up Epilepsy & Seizures at 800 [facility] 800 [place] [address] Virgie Mast MD PhD 800 [place] [address] documented as of this encounter Procedures Procedure [...] documented as of this encounter Care Teams Human Resources Representative Relationship Specialty Start Date End Date Sal Jose MD 1033 [facility] [address] [place] [phone] PCP - General Family Medicine 10/16/23 documented as of this encounter
--- OUTSIDE RECORDS SUMMARY | 2024-10-12 17:36 | XMS_ITS | Encounter Summary ---
Author Organization [facility] and [facility] Address 20 [place] [address] Care Team Providers Care Financial Counselor Name Role Phone Sal Jose MD Primary Care Provider Encounter Details Date Type Department Care Team (Late st Contact Info) Description 08/14/2023 Transcribed Orders EXTERNAL REFERRAL SOURCE 20 [place] [address] Referral, Self Social History Tobacco Use Types [...] EDT Follow Up [place]monary Critical [place] 136 [facility] 302 [place] [address] Ramon Nixon MD 136 [facility] 302 [place] [address] 04/28/2025 1:45 PM EDT Follow Up Stroke 800 [place] [address] Kristine Kelly MD PhD 800 [place] [address] 05/04/2025 1:00 PM EDT Follow Up Cardiovascular Medicine at 175 [facility] 175 [place], [place] [address] Mike Hilario MD 175 [facility] 2 [place] [address] 07/20/2025 11:40 AM EST Follow Up Epilepsy & Seizures at [address] [facility] [address] [facility] Lower [place], [place] [address] Virgie Mast MD PhD 800 [place] [address] documented as of this encounter Visit Diagnoses Not on filedocumented in this encounter Care Teams Financial Counselor Relationship Specialty Start Date End Date Sal Jose MD [address] [place] [phone] PCP - General Family Medicine 10/16/23 documented as of this encounter
--- OUTSIDE RECORDS SUMMARY | 2024-10-12 17:36 | XMS_ITS | Patient Health Record ---
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 Progressiv e systemic sclerosis (514795266) Problem Dysphagia, pharyngoesophageal phase (R13.14) Active confirmed Pharyngeal dysphagia (2105859278850 5) Problem Dysphonia (R49.0) Active confirmed Dysp honia (29576714) Problem Other diseases of larynx (J38.7) Active confirmed Disease of larynx (98622165) PLAN OF TREATMENT No Information Insurance Providers Payer Name Payer Address Payer Phone Subscriber Number Group Number Insured Name Patient Relationship to Insured Coverage Start Date Coverage [place] [address] [place] [address] [id number] Medicare Bernadette Zapata Self - patient is the insured 9
--- OUTSIDE RECORDS SUMMARY | 2024-10-12 17:36 | XMS_ITS | Encounter Summary ---
Author Organization [facility] Address [address] [place] [address] Care Team Providers Care Meat Soaker Name Role Phone Sal Jose MD Primary Care Provider Encounter Details Date Type Department Care Team (Late st Contact Info) Description 10/27/2023 Scanned Document CARE CENTER SCHEDULING 25 [place], [place] [address] Provider, Historical . [phone] (Fax) Social History Tobacco Use Types Packs/Day [...] EDT Follow Up [place] 136 [facility] [address] [place] [address] Ramon Nixon MD 136 [facility] [address] 302 [place] [address] 04/28/2025 1:45 PM EDT Follow Up Stroke 800 [facility] [place] [address] Kristine Kelly MD PhD 800 [place] [address] 05/04/2025 1:00 PM EDT Follow Up Cardiovascular Medicine at 175 [facility] 175 [place] [address] Mike Hilario MD 175 [facility] [address] 2 [place] [address] 07/20/2025 11:40 AM EST Follow Up Epilepsy & Seizures at 800 [facility] 800 [facility] [place] [address] Virgie Mast MD PhD 800 [place] [address] documented as of this encounter Visit Diagnoses Not on filedocumented in this encounter Care Teams Meat Soaker Relationship Specialty Start Date End Date Sal Jose MD [facility] [address] [phone] PCP - General Family Medicine 10/16/23 documented as of this encounter
--- OUTSIDE RECORDS SUMMARY | 2024-10-12 17:36 | XMS_ITS | Encounter Summary ---
Author Organization [facility] Address [address] [place] [phone] Care Team Providers Care Supervisor Sawing And Assembly Name Role Phone Sal Jose MD Primary Care Provider [phone] Encounter Details Date Type Department Care Team (Late st Contact Info) Description 10/17/2023 Scanned Document [facility] Stroke 800 [place] [address] Kristine Kelly MD PhD 800 [place] [address] Social History Tobacco Use Types Packs/Day Years [...] EDT Follow Up [place]monary Critical [place] 136 [facility] 302 [place], [place] [address] Ramon Nixon MD [address] [facility] 302 [place] [address] 04/28/2025 1:45 PM EDT Follow Up Y[facility] Stroke 800 [place] [address] Kristine Kelly MD PhD 800 [place] [address] 05/04/2025 1:00 PM EDT Follow Up Cardiovascular Medicine at 175 [facility] 175 [place], [place] [address] Mike Hilario MD 175 [facility] 2 [place] [address] 07/20/2025 11:40 AM EST Follow Up Epilepsy & Seizures at 800 [facility] 800 [place] [address] Virgie Mast MD PhD 800 [place] [address] documented as of this encounter Visit Diagnoses Not on filedocumented in this encounter Care Teams Supervisor Sawing And Assembly Relationship Specialty Start Date End Date Sal Jose MD [facility] [address] [phone] PCP - General Family Medicine 10/16/23 documented as of this encounter
== END 2024-10-12 15:44 | disposition home or self-care (01) ==
LOC: HO.HMCFM 14:21
PROVIDERS: PCP Family Medicine; Visit Provider Family Medicine
DX: I10 Essential (primary) hypertension (principal); Z86.73 Personal history of transient ischemic attack (TIA), and cerebral infarction without residual deficits

== ENCOUNTER 2024-10-27 13:35 | Outpatient (AMB) | payer BC, SELFPAY ==
--- NOTE | 2024-10-27 13:37 | AM.OFFWIN_ITS ---
Intake Vital Signs 10/27/24 13:44 Height 5 ft 8 in Weight 222 lb BMI 33.8 BP 166/92 H Blood Pressure Location Lt brachial Position Sitting Respiration 14 Pulse 68 Pulse Source Pulse Oximeter Temp 97.2 F Temp Source Oral Pulse Oximetry (%) 99 Oxygen Delivery Method Room Air Intake Visit Reasons: High Blood Pressure Intake Note: Patient c/o high bp and was at [facility] yesterday. Patient did not take bp meds because [facility] told her to stop them. Patient Tobacco Use Status: Never used Tobacco Allergies Penicillins Allergy (Severe, Verified 10/27/24 13:37) Anaphylaxis morphine Adverse Reaction (Intermediate, Verified 10/27/24 13:37) Confusion Medication List - Last Reconciled 10/27/24 by NURIS PetersenP- albuterol sulfate 2.5 mg continuous nebulization albuterol sulfate 90 mcg/actuation inhalation amlodipine-benazepril 5-10 mg 1 cap PO DAILY atorvastatin 80 mg PO DAILY budesonide 0.5 mg inhalation budesonide-formoterol 160-4.5 mcg/actuation inhalation clopidogrel 75 mg PO DAILY cyanocobalamin (vitamin B-12) 1,000 mcg IM fenofibrate nanocrystallized mg PO DAILY gabapentin 400 mg PO 3XD levetiracetam mg PO levothyroxine 200 mcg PO DAILY levothyroxine 50 mcg PO DAILY lidocaine 5% topical montelukast 10 mg PO DAILY mycophenolate mofetil mg PO syringe with needle, safety (BD Integra Syringe) As directed tramadol 50 mg PO zolpidem 10 mg PO Do you need a note to return to daycare/school/sports/work: No HPI HPI Comments History of Present Illness Details History of Present Illness - The patient is a 63-year-old female pr esenting with follow-up post hospital discharge for hypertension management. - The patient?s hypertension was initial ly recorded at 190 mmHg and subsequently at 172/102 mmHg during a hospital visit. - Hypokalemia was observed with potassiu m levels at 2.8 mmol/L treated with oral potassium. She was d/c home with KCL 20 meq but did not sisal picker as it was not ready. - An elevated TSH level noted at 5.0 mIU /L. - Discontinued Hydrochlorothiazide due t o its contribution to hypokalemia; continues on Amlodipine with Benazepril however did not take today; as she thought she should stop all of her HTN meds. - Adopts a largely vegetarian diet, cons uming occasional meat with ongoing weight loss efforts. Denies chest pain, muscle aches, palpitations. Physical Exam General: Well developed, well nourished, in no acute distress. Appears stated age. Head: Normocephalic, atraumatic. Eyes: Pupils are equal, round and reactive to light and accommodation. Conjunctivae are clear. Vision grossly normal. Lungs: Clear to auscultation bilaterally. No rales, rhonchi or wheeze noted. Good air flow in all hu. Heart: Regular rate and rhythm. No click, rubs or gallops are noted. 2/6 murmur noted Pulses: Peripheral pulses are equal and palpable bilaterally. Extremities: No clubbing, cyanosis. No edema Psych: Mood and affect appropriate. Results - Labs: Serum potassium noted at 2.8 mmo l/L, TSH was 5.0 mIU/L. - Electrocardiogram (EKG): Previous QTC interval of 454 ms, with a historical QTC of 440 ms. - Imaging: Chest X-ray clear. Discussion Notes Today, I discussed the management and treatment options for the patient's essential hypertension. A change in medication was recommended, replacing Hydrochlorothiazide with Metoprolol to avoid exacerbating hypokalemia. The patient was advised against prolonged fasting that could impact potassium levels and informed about symptoms that might warrant immediate medical attention. Follow-up was planned to reassess blood pressure control and potassium levels with further labs scheduled for today and a recheck in two weeks. The importance of consistent monitoring of blood pressure at home was emphasized, and the patient was asked to return with these records. Assessment and Plan 1. Essential Hypertension: Initiated Met oprolol 25 mg once daily while continuing Amlodipine and Benazepril. Monitor potassium levels with labs today. Record blood pressure at home. 2. Hypokalemia: Discontinue Hydrochlorot hiazide. Monitor serum potassium today. Avoid unnecessary potassium supplementation. 3. Elevated TSH: Continue monitoring thy roid function levels. No immediate plan changes today. Patient Instructions - Start Metoprolol 25 mg once daily. - Continue Amlodipine with Benazepril as prescribed. - Avoid Hydrochlorothiazide and potassiu m supplements unless otherwise advised. - Monitor blood pressure once daily at h ome. - Attend lab tests for potassium today a nd follow up in two weeks for re- evaluation. - Keep a food diary to manage prolonged fasting and notify about any dietary restrictions. - Schedule follow-up with Dr. Walker in 2 weeks BP recheck Consent Patient was informed and verbally consented to the use of an ambient scribe for clinic note documentation during this visit. Total time spent caring for the patient today was 30 minutes. This includes time spent before the visit reviewing the chart, time spent during the visit, and time spent after the visit on documentation, reviewing laboratory results, diagnostic imaging, medications, performing a medically necessary evaluation, counseling on diagnoses, care coordination, ordering appropriate tests, ordering appropriate medications, review of tests performed by other providers, reporting test results with the patient, communication with other healthcare providers. [facility] Family History (Updated 10/07/24 @ 15:41 by DAYANA Sigala) Maternal Grandmother FH: mental illness Brother FH: mental illness Sister FH: mental illness Father FH: mental illness Social History (Updated 10/07/24 @ 15:42 by DAYANA Sigala) Housing: Apartment Patient Tobacco Use Status: Never used Tobacco e-Cigarette/Vaping Use: Never Used Second Hand Smoke Exposure: No Substance Use Type: Other service: No Current occupational status: retired Current occupational exposures/hazards: No Cognitive needs: Yes (aphasia ) Hearing needs: No Vision needs: Yes Physical Exam Vital Signs: Last Vital Signs Temp 97.2 F 10/27/24 13:44 Pulse 68 10/27/24 13:44 Resp 14 10/27/24 13:44 BP 166/92 H 10/27/24 13:44 Pulse Ox 99 10/27/24 13:44 Oxygen Delivery Method Room Air 10/27/24 13:44 BMI result Body Mass Index 33.8 Assessment & Plan Assessment & Plan (1) Hospital discharge follow-up: Code(s): Z09 - Encounter for follow-up examination after completed treatment for conditions other than malignant neoplasm (2) Hypokalemia: Code(s): E87.6 - Hypokalemia (3) Hypertension: Code(s): I10 - Essential (primary) hypertension Qualifiers: Hypertension type: unspecified Qualified Code(s): I10 - Essential (primary) hypertension (4) Hypothyroidism: Code(s): E03.9 - Hypothyroidism, unspecified Qualifiers: Hypothyroidism type: unspecified Qualified Code(s): E03.9 - Hypothyroidism, unspecified Plan . Orders: Orders Electrolytes Today E87.6 - Hypokalemia Medications: New amlodipine-benazepril 5-10 mg 1 cap PO DAILY 90 caps 0RF metoprolol succinate ER 25 mg PO DAILY 30 tabs 0RF Coding Level of Care Code Est Pt Level 4 (99980) Diagnoses Hospital discharge follow-up Z09 Hypokalemia E87.6 Hypertension, unspecified type I10 Hypertension type: unspecified Hypothyroidism, unspecified type E03.9 Hypothyroidism type: unspecified
[2024-10-27 13:44] VITALS: BP 166/92; PULSE 68; RESP 14; TEMP 36.2; O2SAT 99; BMI 33.8
--- OUTSIDE RECORDS SUMMARY | 2024-10-27 16:09 | XMS_ITS | Encounter Summary ---
Author Organization [facility] Address Unknown Care Team Providers Care Literary Writer Name Role Phone Sal Jose MD Primary Care Provider Encounter Details Date Type Department Care Team (Late st Contact Info) Description 08/27/2023 Scanned Document Pulmonary Critical [place] [address] [address] External, Provider Social History Tobacco Use Types [...] 12:00 PM EDT Follow Up [place]monary Critical [place] 136 [facility] 302 [place] [address] Ramon Nixon MD 136 [facility] 302 [place] [address] 04/28/2025 1:45 PM EDT Follow Up Stroke 800 [place] [address] Kristine Kelly MD PhD 800 [place] [phone] 05/04/2025 1:00 PM EDT Follow Up Cardiovascular Medicine at 175 [facility] 175 [facility] [place] [address] Mike Hilario MD 175 [facility] Fl 2 [place] [address] 07/20/2025 11:40 AM EST Follow Up Epilepsy & Seizures at 800 [facility] 800 [facility] Lower [place], [place] [address] Virgie Mast MD PhD [address] [place] [phone] documented as of this encounter Procedures Procedure Name Priority Date/Time Associated Diagnosis Comments CARDIAC ECHO RESULT SCAN Routine 08/27/2023 documented in this encounter Results * Cardiac Echo Result Scan (08/27/2023) Provider External CV CARDIAC REPORT (CVR) Final Result documented in this encounter Visit Diagnoses Not on filedocumented in this encounter Care Teams Literary Writer Relationship Specialty Start Date End Date Sal Jose MD 1033 [facility] [address] [place] [phone] PCP - General Family Medicine 10/16/23 documented as of this encounter
--- OUTSIDE RECORDS SUMMARY | 2024-10-27 16:09 | XMS_ITS | Encounter Summary ---
Author Organization [facility] Address [address] [place] [address] Care Team Providers Care Internal Audit Senior Manager Name Role Phone Sal Jose MD Primary Care Provider Encounter Details Date Type Department Care Team (Late st Contact Info) Description 08/14/2023 Transcribed Orders EXTERNAL REFERRAL SOURCE [address] [place] [address] Referral, Self Social History Tobacco Use Types [...] EDT Follow Up [place] 136 [facility] 302 [place] [address] Ramon Nixon MD 136 [facility] 302 [place] [address] 04/28/2025 1:45 PM EDT Follow Up Stroke 800 [place] [address] Kristine Kelly MD PhD 800 [place] [address] 05/04/2025 1:00 PM EDT Follow Up Cardiovascular Medicine at 175 [facility] 175 [place], [place] [address] Mike Hilario MD 175 [facility] 2 [place] [address] 07/20/2025 11:40 AM EST Follow Up Epilepsy & Seizures at [address] [facility] [address] [facility] Lower [place], [place] [address] Virgie Mast MD PhD 800 [place] [phone] documented as of this encounter Visit Diagnoses Not on filedocumented in this encounter Care Teams Internal Audit Senior Manager Relationship Specialty Start Date End Date Sal Jose MD [address] [place] [phone] PCP - General Family Medicine 10/16/23 documented as of this encounter
--- OUTSIDE RECORDS SUMMARY | 2024-10-27 16:09 | XMS_ITS | Encounter Summary ---
Author Organization [facility] and [facility] Address 20 [place] [address] Care Team Providers Care Private Mortgage Banker Safe Name Role Phone Sal Jose MD Primary Care Provider [phone] Encounter Details Date Type Department Care Team (Late st Contact Info) Description 08/13/2023 Scanned Document EXTERNAL REFERRAL SOURCE 20 [place] [address] External, Provider Social History Tobacco Use Types [...] EDT Follow Up [place] 136 [facility] 302 [place] [address] Ramon Nixon MD 136 [facility] 302 [place] [address] 04/28/2025 1:45 PM EDT Follow Up Stroke [address] [place] [address] Kristine Kelly MD PhD 800 [place] [address] 05/04/2025 1:00 PM EDT Follow Up Cardiovascular Medicine at 175 [facility] 175 [place], [place] [address] Mike Hilario MD 175 [facility] 2 [place] [address] 07/20/2025 11:40 AM EST Follow Up Epilepsy & Seizures at 800 [facility] 800 [facility] Lower [place], [place] [address] Virgie Mast MD PhD 800 [place] [phone] documented as of this encounter Visit Diagnoses Not on filedocumented in this encounter Care Teams Private Mortgage Banker Safe Relationship Specialty Start Date End Date Sal Jose MD [address] [place] [phone] PCP - General Family Medicine 10/16/23 documented as of this encounter
--- OUTSIDE RECORDS SUMMARY | 2024-10-27 16:09 | XMS_ITS | Encounter Summary ---
Author Organization [facility] and [facility] Address [address] [place] [phone] Care Team Providers Care Coding Quality Analyst Name Role Phone Sal Jose MD Primary Care Provider [phone] Encounter Details Date Type Department Care Team (Late st Contact Info) Description 10/17/2023 Scanned Document [facility] Stroke 800 [place] [address] Kristine Kelly MD PhD 800 [place] [phone] Social History Tobacco Use Types Packs/Day Years [...] EDT Follow Up [place] 136 [facility] 302 [place], [place] [address] Ramno Nixon MD 136 [facility] 302 [place] [phone] 04/28/2025 1:45 PM EDT Follow Up [facility] Stroke [address] [place] [address] Kristine Kelly MD PhD 800 [place] [address] 05/04/2025 1:00 PM EDT Follow Up Cardiovascular Medicine at 175 [facility] 175 [place], [place] [address] Mike Hilario MD 175 [facility] 2 [place] [address] 07/20/2025 11:40 AM EST Follow Up Epilepsy & Seizures at 800 [facility] 800 [place] [address] Virgie Mast MD PhD [address] [place] [phone] documented as of this encounter Visit Diagnoses Not on filedocumented in this encounter Care Teams Coding Quality Analyst Relationship Specialty Start Date End Date Sal Jose MD [facility] [address] [phone] PCP - General Family Medicine 10/16/23 documented as of this encounter
--- OUTSIDE RECORDS SUMMARY | 2024-10-27 16:10 | XMS_ITS | Clinical Summary ---
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 Encounters Date Type Department Care Team Description 10/21/2024 11:00 AM EDT Office Visit [facility] [address] [place] [address] Jamison Briscoe LLD 10/14/2024 11:00 AM EDT Office Visit [facility] [address] [place] [address] Jamison Briscoe LLD 08/26/2024 9:40 AM EST Office Visit [facility] [address] [place] [address] Hanane Mason Stage 2 grade B generalized periodontitis per AAP/EFP 2017 classification (Primary Dx); Encounter for dental examination; Dental caries 08/24/2024 Patient Outreach [facility] [address] [place] [address] Cordell Saba 08/16/2024 Patient Outreach [facility] [address] [place] [address] Cordell Saba 08/16/2024 Patient Outreach [facility] [address] [place] [address] Cordell Saba 08/13/2024 Patient Outreach [facility] [address] [place] [address] Cordell Saba 08/13/2024 Patient Outreach [facility] [address] [place] [address] Cordell Saba 08/13/2024 Patient Outreach [facility] [address] [place] [address] Cordell Saba 08/12/2024 9:30 AM EST Office Visit [facility] [address] [place] [address] Chute, Cherelle, OD Visual field defect (Primary Dx); Glaucoma suspect of both eyes 08/12/2024 Patient Outreach [facility] [address] [place] [address] Jayant Robertreanna Ruby 08/12/2024 Travel 07/29/2024 2:30 PM EST Office Visit [facility] [address] [place] [address] Cherelle Vidal, OD Routine eye exam (Primary [...] Care Team (Late st Contact Info) Description 11/09/2024 12:00 PM EDT Office Visit [facility] [address] [place] [address] Jamison Briscoe LLD 9 [place] [address] 11/11/2024 9:30 AM EDT Office Visit [facility] [address] [place] [address] Jamison Briscoe, LLD 9 [place] [address] 02/03/2025 10:00 AM EDT Office Visit [facility] [address] [place] [address] Cherelle Vidal, OD [address] [place] [address] 02/24/2025 12:00 PM EDT Office Visit [facility] [address] [place] [address] Hanane Mason Health Maintenance Due Date Last [...] series) 06/10/2024 05/13/2024, 12/06/2021 Mammogram 09/11/2024 09/11/2022, 02/0 03/2023, 03/02/2019, Additional history exists Dental Oral Exam [...] Procedure Name Priority Date/Time Associated Diagnosis Comments CASE PRESENTATION, DETAILED AND EXTENSIVE TREATMENT PLANNING Routine 10/21/2024 11:00 AM EDT 31 MOB RESIN-BASED COMPOSITE - 3 SURF, POSTERIOR Routine 10/21/2024 11:00 AM EDT CASE PRESENTATION, DETAILED AND EXTENSIVE TREATMENT PLANNING Routine 10/14/2024 11:00 AM EDT 3 MODBL RESIN-BASED COMPOSITE - 4+ SURF, POSTERIOR Routine 10/14/2024 11:00 AM EDT PANORAMIC RADIOGRAPHIC IMAGE Routine 08/26/2024 9:40 AM [...] RNFL/GCC is normal; establishing baseline Cherelle Vidal OPHTH TOMOGRAPHY Final Result * Automated Visual Field, Extended - OU - Both Eyes (08/12/2024) Impressions Cherelle Vidal, OD - 08/12/2024 Right eye (OD): reliable, 11%FN; sup/right quadrantanopia and some sup left quadrant defect; improved reliability from previous Left eye (OS): reliable; sup/left quadrantanopia; improved reliability from previous Cherelle Vidal OPHTH VISUAL FIELD Final Result * Automated Visual Field, Extended - OU - Both Eyes (08/02/2024) Impressions Cherelle Vidal, OD - 08/02/2024 Right eye (OD): reliable, superior arcuate defect; establishing baseline Left eye (OS): reliable, superior dense arcuate defect and early inf arc defect; establishing baseline Cherelle Vidal OD OPHTH VISUAL FIELD Final Result from Last 3 Months [place] [address] [id number] GENERIC MEDICARE ADVANTAGE on file [facility] HMO HSN FULL [facility] HMO DENTAL - HSN FULL (MEDICAID) Care Teams Telescope Repairer Relationship Specialty Start Date End Date Cordell Saba Health Navigator 08/12/24 CASSIDY DE LA FUENTE NPI ID: [id number] Address: [address] [place] [phone] Primary Care Physician [id number] Primary Care Provider 08/12/18
--- OUTSIDE RECORDS SUMMARY | 2024-10-27 16:10 | XMS_ITS | Encounter Summary ---
Author Organization [facility] and [facility] Address [address] [place] [phone] Care Team Providers Care Malariologist Name Role Phone Sal Jose MD Primary Care Provider [phone] Encounter Details Date Type Department Care Team (Late Contact Info) Description 07/21/2024 Transcribed Orders [facility] Specimens [address] [place] [address] System, Provider Not In CRST syndrome (HC [...] EDT Follow Up [place]monary Critical [place] 136 [facility] 302 [place], [place] [phone] Ramon Nixon MD [address] [place] [phone] 04/28/2025 1:45 PM EDT Follow Up Stroke 800 [place] [address] Kristine Kelly MD PhD 800 [place] [address] 05/04/2025 1:00 PM EDT Follow Up Cardiovascular Medicine at 175 [facility] 175 [place] [address] Mike Hilario MD [address] [place] [address] 2 [place] [address] 07/20/2025 11:40 AM EST Follow Up Epilepsy & Seizures at 800 [facility] 800 [place] [address] Virgie Mast MD PhD 800 [place] [phone] documented as of this encounter Results * Sedimentation rate (ESR) (07/23/2024 1:13 PM EST) Sedimentation Rate (ESR) 12 0 - 20 mm/hr 07/23/2024 2:55 PM EST [facility] MEDICINE Blood Venipuncture / Unknown 07/23/2024 1:13 PM EST 07/23/2024 2:24 PM EST us Provider Not In System LAB BLOOD ORDERABLES Evelin smith Result [facility]ORATORY MEDICINE [address] [place] [address] documented in this encounter Visit Diagnoses 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
--- OUTSIDE RECORDS SUMMARY | 2024-10-27 16:10 | XMS_ITS | Encounter Summary ---
Author Organization [facility] Address [address] [place] [phone] Care Team Providers Care Heading Matcher And Assembler Name Role Phone Sal Jose MD Primary Care Provider [phone] Encounter Details Date Type Department Care Team (Late st Contact Info) Description 10/28/2023 Scanned Document [facility]ARE [facility]ENTER SCHEDULING [address] [place], [place] [address] Provider, Historical . [phone] (Fax) Social History Tobacco Use Types Packs/Day [...] EDT Follow Up Pulmonary Critical [place] 136 [facility] [address] [place] [address] Ramon Nixon MD 136 [facility] 302 [place] [phone] 04/28/2025 1:45 PM EDT Follow Up Stroke 800 [facility] [place] [address] Kristine Kelly MD PhD 800 [place] [address] 05/04/2025 1:00 PM EDT Follow Up Cardiovascular Medicine at 175 [facility] 175 [facility] [place] [address] Mike Hilario MD 175 [facility] [address] 2 [place] [address] 07/20/2025 11:40 AM EST Follow Up Epilepsy & Seizures at 800 [facility] 800 [facility] [place] [address] Virgie Mast MD PhD 800 [facility] [place], [place] [address] documented as of this encounter Procedures Procedure [...] on filedocumented in this encounter Care Teams Heading Matcher And Assembler Relationship Specialty Start Date End Date Sal Jose MD 1033 [facility] [address] [place] [phone] PCP - General Family Medicine 10/16/23 documented as of this encounter
--- OUTSIDE RECORDS SUMMARY | 2024-10-27 16:10 | XMS_ITS | Encounter Summary ---
Author Organization [facility] and [facility] Address [address] [place] [address] Care Team Providers Care Special Events Planner Name Role Phone Sal Jose MD Primary Care Provider [phone] Encounter Details Date Type Department Care Team (Late st Contact Info) Description 10/28/2023 Scanned Document [facility] at 800 [facility] 800 [place] [address] Joao Loredo MD 800 [place] [phone] Social History Tobacco Use Types Packs/Day Years [...] EDT Follow Up [place]monary Critical [place] 136 [facility] [address] [place], [place] [address] Ramon Nixon MD 136 [facility] 302 [place] [address] 04/28/2025 1:45 PM EDT Follow Up [facility] Stroke 800 [place] [address] Kristine Kelly MD PhD 800 [place] [address] 05/04/2025 1:00 PM EDT Follow Up Cardiovascular Medicine at 175 [facility] 175 [place] [address] Mike Hilario MD 175 [facility] 2 [place] [address] 07/20/2025 11:40 AM EST Follow Up Epilepsy & Seizures at 800 [facility] 800 [place] [address] Virgie Mast MD PhD 800 [place] [phone] documented as of this encounter Visit Diagnoses Not on filedocumented in this encounter Care Teams Special Events Planner Relationship Specialty Start Date End Date Sal Jose MD [address] [phone] PCP - General Family Medicine 10/16/23 documented as of this encounter
--- OUTSIDE RECORDS SUMMARY | 2024-10-27 16:10 | XMS_ITS | Encounter Summary ---
Author Organization [facility] and [facility] Address [address] [place] [phone] Care Team Providers Care Flooring Installer Name Role Phone Sal Jose MD Primary Care Provider [phone] Encounter Details Date Type Department Care Team (Late st Contact Info) Description 10/28/2023 Scanned Document [facility] Neurosurgery at 800 [facility] 800 [place] [address] Joao Loredo MD 800 [place] [phone] Social History Tobacco Use Types Packs/Day Years [...] EDT Follow Up Pulmonary Critical [place] 136 [facility] [address] [place], [place] [address] Ramon Nixon MD 136 [facility] 302 [place] [phone] 04/28/2025 1:45 PM EDT Follow Up [facility] Stroke 800 [place] [address] Kristine Kelly MD PhD [address] [place] [phone] 05/04/2025 1:00 PM EDT Follow Up Cardiovascular Medicine at 175 [facility] 175 [facility] [place] [address] Mike Hilario MD 175 [facility] 2 [place] [address] 07/20/2025 11:40 AM EST Follow Up Epilepsy & Seizures at 800 [facility] 800 [facility] [address] Virgie Mast MD PhD [address] [place] [phone] documented as of this encounter Procedures Procedure [...] MRI Result Scan (04/12/2020 12:01 PM EDT) [facility] Provider IMG SCAN REPORTS Final Resul t * MRI Result Scan (04/12/2020 11:55 AM EDT) Historical Provider IMG SCAN REPORTS Final Resul t * MRI Result Scan (04/08/2020 12:04 PM EDT) [facility] Provider IMG SCAN REPORTS Final Resul t [...] CT Result Scan (09/28/2012 12:30 PM EST) [facility] Provider IMG SCAN REPORTS Final Resul t * CT Result Scan (09/07/2012 12:34 PM EST) [facility] Provider IMG SCAN REPORTS Final Resul t * CT Result Scan (02/13/2012 12:38 PM EDT) Historical Provider IMG SCAN REPORTS Final Resul t * CT Result Scan (12/17/2010 1:03 PM EDT) [facility] Provider IMG SCAN REPORTS Final Resul t * CT Result Scan (12/17/2010 1:00 PM EDT) [facility] Provider IMG SCAN REPORTS Final Resul t * CT Result Scan (12/17/2010 12:56 PM EDT) Result [facility] Provider IMG SCAN REPORTS Final Resul t * CT Result Scan (12/17/2010 12:52 PM EDT) Result [facility] Provider IMG SCAN REPORTS Final Resul t * CT Result Scan (12/17/2010 12:46 PM EDT) [facility] Provider IMG SCAN REPORTS Final Resul t * CT Result Scan (12/17/2010 12:41 PM EDT) Historical Provider IMG SCAN REPORTS Final Resul t documented in this encounter Visit Diagnoses Not on filedocumented in this encounter Care Teams Flooring Installer Relationship Specialty Start Date End Date Sal Jose MD [address] [phone] PCP - General Family Medicine 10/16/23 documented as of this encounter
--- OUTSIDE RECORDS SUMMARY | 2024-10-27 16:10 | XMS_ITS | Encounter Summary ---
Author Organization [facility] and [facility] Address [address] [place] [phone] Care Team Providers Care Vehicle Inspector Name Role Phone Sal Jose MD Primary Care Provider [phone] Encounter Details Date Type Department Care Team (Late Contact Info) Description 08/31/2024 Transcribed Orders [facility] Laboratory Specimens 55 [place] [address] System, Provider Not In CRST syndrome (HC [...] EDT Follow Up Pulmonary Critical [place] 136 [facility] 302 [place], [place] [phone] Ramon Nixon MD [address] [place] [phone] 04/28/2025 1:45 PM EDT Follow Up Stroke 800 [facility] [address] Kristine Kelly MD PhD 800 [place] [address] 05/04/2025 1:00 PM EDT Follow Up Cardiovascular Medicine at 175 [facility] 175 [place] [address] Mike Hilario MD [address] [place] [address] 2 [place] [address] 07/20/2025 11:40 AM EST Follow Up Epilepsy & Seizures at 800 [facility] 800 [facility] [address] Virgie Mast MD PhD 800 [place] [address] Scheduled Orders Name Type Priority Associated Diagnoses [...] documented as of this encounter Care Teams Vehicle Inspector Relationship Specialty Start Date End Date Sal Jose MD 1033 [facility] [address] [place] [phone] PCP - General Family Medicine 10/16/23 documented as of this encounter
--- OUTSIDE RECORDS SUMMARY | 2024-10-27 16:10 | XMS_ITS | Encounter Summary ---
Author Organization [facility] Address [address] [place] [address] 7 [place] [address] Care Team Providers Care Civil Engineering Manager Name Role Phone Cordell Saba Unavailable Unavailable Encounter Details Date Type Department Care Team (Late st Contact Info) Description 10/21/2024 11:00 AM EDT Office Visit [facility] 73 [place] [address] Jamison Briscoe LLD 9 [place] [address] Social History Tobacco Use Types Packs/Day Years Used Date Smoking Tobacco: Never Smokeless Tobacco: Never Alcohol Use Standard Drinks/Week Comments Never 0 [...] not to disclose 2023 12:10 PM EDT documented as of this encounter Progress Notes * BREN Marie - 10/21/2024 11:00 AM EDT Dental procedures in this visit D2393 - RESIN-BASED COMPOSITE - 3 SURF, POSTERIOR 31 MOB (Completed) Service provider: BREN Marie Billing provider: BREN Marie D9450 - CASE PRESENTATION, DETAILED AND EXTENSIVE TREATMENT PLANNING (Completed) Service provider: BREN Marie Billing provider: BREN Marie Completion details D2393 - RESIN-BASED COMPOSITE - 3 SURF, POSTERIOR 31 MOB (Completed) D9450 - CASE PRESENTATION, DETAILED AND EXTENSIVE TREATMENT PLANNING (Completed) Dx #31: Fx buddhism, MOB defect Iveth: 1.00 carp of Septocaine, 4% with Epinephrine 1:100,000. #31 MOB sites prepared. Decay/existing buddhism removed. Activa liner placed, Etched, Solo and TPH3 Shade: A3 Finished and polished. Contact verified. Occlusion verified. 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 #31 MOB sites prepared. Decay/existing buddhism removed. Activa liner placed, Etched, Solo and TPH3 Shade: A3 Finished and polished. Contact verified. Occlusion verified. Concerns: POIG NV: Restore #20 MODL documented in this encounter Plan of Treatment Upcoming Encounters Date Type Department Care Team (Late st Contact Info) Description 11/09/2024 12:00 PM EDT Office Visit [facility] DENTAL [address] [place] [address] Jamison Briscoe LLD 9 [place] [address] 11/11/2024 9:30 AM EDT Office Visit [facility] DENTAL [address] [place] [address] Jamison Briscoe LLD 9 [place] [address] 02/03/2025 10:00 AM EDT Office Visit [facility] OPTOMETRY [address] [place] [address] Cherelle Vidal, OD 73 [place] [address] 02/24/2025 12:00 PM EDT Office Visit [facility] DENTAL [address] [place] [address] Hanane Mason documented as of this encounter Procedures Procedure Name Priority Date/Time Associated Diagnosis Comments 31 MOB RESIN-BASED COMPOSITE - 3 SURF, POSTERIOR Routine 10/21/2024 11:00 AM EDT CASE PRESENTATION, DETAILED AND EXTENSIVE TREATMENT PLANNING Routine 10/21/2024 11:00 AM EDT documented in this encounter Visit Diagnoses Not on filedocumented in this encounter Care Teams Civil Engineering Manager Relationship Specialty Start Date End Date Jayant Robertamnabrit [facility] Navigator 08/12/24 CASSIDY DE LA FUENTE NPI ID: [id number] Address: [address] [place] [phone] Primary Care Physician [id number] Primary Care Provider 08/12/18 documented as of this encounter
--- OUTSIDE RECORDS SUMMARY | 2024-10-27 16:10 | XMS_ITS | Clinical Summary ---
Author Organization [facility] Address 20 [place] [address] Phone Care Team Providers Care Film Technician Name Role Phone Sal Jose MD Primary Care Provider [phone] Allergies Active Allergy Reactions Criticality Noted Date [...] 4:00 PM EST Follow Up Pulmonary Critical [place] 136 [facility] 302 [place] [address] Ramon Nixon MD ILD (interstitial lung disease) (HC Code) (HC CODE) (HC Code) (Primary Dx); Mild persistent asthma with acute exacerbation 08/31/2024 Scanned Document Pulmonary Critical [place] 136 [facility] 302 [place] [address] Ramon Nixon MD 08/31/2024 Transcribed Orders [facility] Laboratory Specimens 55 [place] [address] System, Provider Not In CRST syndrome (HC Code) (HC CODE) (HC Code) (Primary Dx) 08/25/2024 Telephone [facility] [place] [facility], 306 [place] [address] Nain Cat MD Appointment (Missed Study ) 08/11/2024 12:15 PM EST Telemedicine Pulmonary Critical [place] 136 [facility] 302 [place] [address] Ramon Nixon MD Mild persistent asthma with acute exacerbation (Primary Dx) from Last 3 Months Immunizations Name Administration [...] [place] 136 [facility] [address] [place] [address] Ramon Nixon MD 136 [facility] 302 [place] [address] 04/28/2025 1:45 PM EDT Follow Up Stroke 800 [place] [address] Kristine Kelly MD PhD 800 [place] [phone] 05/04/2025 1:00 PM EDT Follow Up Cardiovascular Medicine at 175 [facility] 175 [place] [address] Mike Hilario MD [address] [facility] 2 [place] [address] 07/20/2025 11:40 AM EST Follow Up Epilepsy & Seizures at 800 [facility] 800 [place] [address] Virgie Mast MD PhD 800 [place] [phone] Health Maintenance Due Date Last Done Comments HIV screening 1974 Hepatitis C screening 11/22/1979 Lipid disorder screening 2001 Colon cancer screening, Colonoscopy 2006 Cervical cancer screening 02/25/2019 02/25/2014 RSV Immunization (1 - Risk 60-74 years 1-dose series) [...] SRC ONLY) Routine 08/31/2024 4:13 PM EST COMPREHENSIVE METABOLIC PANEL Routine 07/23/2024 1:13 PM EST CRST syndrome (HC Code) (HC CODE) (HC Code) from Last 3 Months or Most Recently Relevant to Health Maintenance Results * Pulmonary Function Test (08/31/2024 4:23 PM EST) FEV1 [facility] FVC [facility] FEV1/FVC [facility] TLC [facility] PE max %Post Pred [facility] FEF50 [facility] FIF50 [facility] 08/31/2024 4:23 PM EST Impressions [facility] - 08/31/2024 4:23 PM EST Mild restrictive pattern. Improvement after bronchodilator could indicate airway hyper-reactivity. Narrative [facility] - 08/31/2024 4:23 PM EST Spirometry: FVC is moderately reduced. . FEV1 is mildly reduced. FEV1/FVC ratio is normal. The significant improvement after bronchodilator may be effort related. Flow Volume Loop: Normal contour. Lung Volumes: TLC is mildly reduced. RV is normal. Diffusion Capacity: Mildly reduced. us Ramon Nixon MD POINT OF CARE TEST ORDERABLES Ed ited Result - Final [facility] [place], [place], [facility] * Pulmonary Function Test ([facility]) (08/31/2024 4:13 PM EST) us Ramon Nixon MD PFT ORDERABLES Final Result * Comprehensive metabolic panel (07/23/2024 1:13 PM EST) Sodium 144 136 - 144 mmol/L 07/23/2024 3:09 PM EST [facility] Potassium 4.2 3.3 - 5.3 mmol/L 07/23/2024 3:09 PM EST [facility] Chloride 105 98 - 107 mmol/L 07/23/2024 3:09 PM EST [facility] CO2 26 20 - 30 mmol/L 07/23/2024 3:09 PM EST [facility] Anion Gap 13 7 - 17 07/23/2024 3:09 PM EST [facility] Glucose 89 70 - 100 mg/dL 07/23/2024 3:09 PM EST [facility] BUN 13 8 - 23 mg/dL 07/23/2024 3:09 PM EST [facility] Creatinine 0.72 0.40 - 1.30 mg/dL 07/23/2024 3:09 PM [facility] Calcium 9.7 8.8 - 10.2 mg/dL 07/23/2024 3:09 PM [facility] BUN/Creatinine Ratio 18.1 8.0 - 23.0 07/23/2024 3:09 PM [facility] Total Protein 6.7 5.9 - 8.3 g/dL 024 3:09 PM [facility] Comment:As of 2023, th e reference interval for Total Protein has been changed from (6.6 to 8.7 g/dL) to (5.9 to 8.3 g/dL). Albumin 4.3 3.6 - 5.1 g/dL 07/23/2024 3:09 PM [facility] Comment:As of 2023, th e reference interval for Albumin has been changed from (3.6 to 4.9 g/dL) to (3.6 to 5.1 g/dL). Total Bilirubin 0.6 <=1.2 mg/dL 07/23/20 3:09 PM [facility] Alkaline Phosphatase 113 9 - 122 U/L 07/23/2024 3:09 PM [facility] Alanine Aminotransferase (ALT) 27 10 - 35 U/L 07/23/2024 3:09 PM [facility] Comment:Calcium dobesilate c an cause artificially low ALT results at therapeutic concentrations Aspartate Aminotransferase (AST) 23 10 - 35 U/L 07/23/2024 3:09 PM [facility] Globulin 2.4 2.0 - 3.9 g/dL 07/23/2024 3:09 PM [facility] Comment:As of 2023, th e reference interval for Globulin has been changed from (2.3 to 3.5 g/dL) to (2.0 to 3.9 g/dL). A/G Ratio 1.8 1.0 - 2.2 07/23/2024 3:09 PM [facility] AST/ALT Ratio 0.9 Reference Range Not Established 07/23/2024 3:09 PM EST [facility] eGFR (Creatinine) >60 >=60 mL/min/1.73m2 07/23/2024 3:09 PM [facility] Comment: [facility] utilizes CKD-EPI Creatinine 2020 to report eGFR. Values < 60 mL/min/1.73 m2 may indicate CKD if present for more than three months AND creatinine is at steady state. The eGFR provides a rough estimate of kidney function. For further guidance, please refer to the CKD: Adult Senior Principal Software Engineer Signature pathway. Creatinine Delta 0.01 See Comment 3:09 PM [facility] Comment: [...] System LAB BLOOD ORDERABLES Evelin smith Result [facility] [address] [place] [address], [facility] [phone] from Last 3 Months or Most Recently Relevant to Health Maintenance [place] 1[place] [id number] BCBS MCR MGD 1-D [facility] RYANGARCIA [id number] [facility] 1[facility]D Jerry [facility] RYANGARCIA [id number] [facility] 1-D Jerryeileen DAVISGARCIA [id number] [facility] MGD 1-[place] [id number] BCBS Member Subscriber Plan / Payer (Ef fective 2018-Present) Name:Bernadette Mercedes Relation to Subscriber:Self Name:Bernadette Mercedes Payer ID:[id number] (NAIC) Type:Not on file Address: [facility] [address] [place] [id number] Care Teams Film Technician Relationship Specialty Start Date End Date Sal Jose MD 1033 [facility] [address] [place] [phone] PCP - General Family Medicine 10/16/23
--- OUTSIDE RECORDS SUMMARY | 2024-10-27 16:10 | XMS_ITS | Encounter Summary ---
Author Organization [facility] Address Unknown Care Team Providers Care Tool Room Gear Machine Operator Name Role Phone Sal Jose MD Primary Care Provider [phone] Encounter Details Date Type Department Care Team (Late st Contact Info) Description 08/13/2023 Scanned Document Pulmonary Critical [place] [address] [address] External, Provider Social History Tobacco Use Types [...] 12:00 PM EDT Follow Up Pulmonary Critical [place] 136 [facility] 302 [place] [address] Ramon Nixon MD 136 [facility] 302 [place] [address] 04/28/2025 1:45 PM EDT Follow Up Stroke 800 [place] [address] Kristine Kelly MD PhD 800 [place] [phone] 05/04/2025 1:00 PM EDT Follow Up Cardiovascular Medicine at 175 [facility] 175 [facility] [place] [address] Mike Hilario MD 175 [facility] [address] 2 [place] [phone] 07/20/2025 11:40 AM EST Follow Up Epilepsy & Seizures at 800 [facility] 800 [facility] [place], [place] [address] Virgie Mast MD PhD 800 [place] [phone] documented as of this encounter Visit Diagnoses Not on filedocumented in this encounter Care Teams Tool Room Gear Machine Operator Relationship Specialty Start Date End Date Sal Jose MD 1033 [facility] [address] [place] [phone] PCP - General Family Medicine 10/16/23 documented as of this encounter
--- OUTSIDE RECORDS SUMMARY | 2024-10-27 16:10 | XMS_ITS | Encounter Summary ---
Author Organization [facility] Address Unknown Care Team Providers Care Boiler Out Name Role Phone Sal Jose MD Primary Care Provider [phone] Encounter Details Date Type Department Care Team (Late st Contact Info) Description 11/19/2022 Scanned Document Pulmonary Critical [place] [address] [address] External, Provider Social History Tobacco Use Types [...] 12:00 PM EDT Follow Up Pulmonary Critical [place] 136 [facility] 302 [place] [address] Ramon Nixon MD 136 [facility] 302 [place] [address] 04/28/2025 1:45 PM EDT Follow Up Stroke 800 [place] [address] Kristine Kelly MD PhD 800 [place] [phone] 05/04/2025 1:00 PM EDT Follow Up Cardiovascular Medicine at 175 [facility] 175 [place] [address] Mike Hilario MD 175 [facility] [address] 2 [place] [phone] 07/20/2025 11:40 AM EST Follow Up Epilepsy & Seizures at 800 [facility] 800 [facility] Lower [place], [place] [address] Virgie Mast MD PhD 800 [place] [phone] documented as of this encounter Visit Diagnoses Not on filedocumented in this encounter Care Teams Boiler Out Relationship Specialty Start Date End Date Sal Jose MD 1033 [facility] [address] [place] [phone] PCP - General Family Medicine 10/16/23 documented as of this encounter
--- OUTSIDE RECORDS SUMMARY | 2024-10-27 16:10 | XMS_ITS | Encounter Summary ---
Author Organization [facility] Address 20 [place] [address] Care Team Providers Care Data Warehousing Manager Name Role Phone Sal Jose MD Primary Care Provider [phone] Encounter Details Date Type Department Care Team (Late Contact Info) Description 08/09/2014 Abstract [facility] Endocrinology at 175 [facility] 175 [place] [address] Emerita Beth MD 35 [place] [phone] Social History Tobacco Use Types Packs/Day Years [...] Up Pulmonary Critical [place] 136 [facility] 302 [place], [place] [address] Ramon Nixon MD 136 [facility] 302 [place] [address] 04/28/2025 1:45 PM EDT Follow Up YM Stroke 800 [place] [address] Kristine Kelly MD PhD 800 [place] [phone] 05/04/2025 1:00 PM EDT Follow Up Cardiovascular Medicine at 175 [facility] 175 [facility], [place] [address] Mike Hilario MD 175 [facility] 2 [place] [phone] 07/20/2025 11:40 AM EST Follow Up Epilepsy & Seizures at 800 [facility] 800 [facility] Lower [place], [place] [address] Virgie Mast MD PhD 800 [place] [phone] documented as of this encounter Visit Diagnoses Not on filedocumented in this encounter Care Teams Data Warehousing Manager Relationship Specialty Start Date End Date Sal Jose MD [address] [phone] PCP - General Family Medicine 10/16/23 documented as of this encounter
--- OUTSIDE RECORDS SUMMARY | 2024-10-27 16:10 | XMS_ITS | Encounter Summary ---
Author Organization [facility] Address [address] [place] [phone] Care Team Providers Care Agricultural Researcher Name Role Phone Sal Jose MD Primary Care Provider [phone] Reason for Visit * Reason Onset Date Comments Holter/Event Monitor 11/13/2023 Trying to E nroll Pt for MCT monitor Encounter Details Date Type Department Care Team (Late st Contact Info) Description 11/13/2023 Telephone [facility] Stroke 800 [place], [place] [address] Kristine Kelly MD PhD 800 [place] [phone] Holter/Event Monitor (Trying to Enroll Pt for [...] with me. Thanks. * Telephone Encounter - Nohmey Arroyo - 11/13/2023 9:15 AM EDTSummary: Trying [...] EDT Follow Up Pulmonary Critical [place] 136 [facility] 302 [place] [address] Ramon Nixon MD 136 [facility] 302 [place] [phone] 04/28/2025 1:45 PM EDT Follow Up YM Stroke 800 [facility] [address] Kristine Kelly MD PhD 800 [place] [phone] 05/04/2025 1:00 PM EDT Follow Up Cardiovascular Medicine at 175 [facility] 175 [facility], [place] [address] Mike Hilario MD 175 [facility] Fl 2 [place] [phone] 07/20/2025 11:40 AM EST Follow Up Epilepsy & Seizures at [address] [facility] [address] [facility] [place] [address] Virgie Mast MD PhD 800 [place] [phone] documented as of this encounter Visit Diagnoses Not on filedocumented in this encounter Care Teams Agricultural Researcher Relationship Specialty Start Date End Date Sal Jose MD [facility] [address] [phone] PCP - General Family Medicine 10/16/23 documented as of this encounter
--- OUTSIDE RECORDS SUMMARY | 2024-10-27 16:10 | XMS_ITS | Encounter Summary ---
Author Organization [facility] Address Unknown Care Team Providers Care Stem Processing Machine Operator Name Role Phone Sal Jose MD Primary Care Provider [phone] Encounter Details Date Type Department Care Team (Late st Contact Info) Description 05/11/2024 Scanned Document Pulmonary Critical [place] 136 [facility] 302 [place], [place] [address] Ramon Nixon MD 136 [facility] 302 [place] [phone] Social History Tobacco Use Types Packs/Day Years [...] EDT Follow Up [place]monary Critical [place] 136 [facility] [address] [place], [place] [phone] Ramno Nixon MD 136 [facility] 302 [place] [address] 04/28/2025 1:45 PM EDT Follow Up Stroke 800 [facility] [place] [address] Kristine Kelly MD PhD 800 [place] [address] 05/04/2025 1:00 PM EDT Follow Up Cardiovascular Medicine at 175 [facility] 175 [facility] [place] [address] Mike Hilario MD 175 [facility] 2 [place] [address] 07/20/2025 11:40 AM EST Follow Up Epilepsy & Seizures at 800 [facility] 800 [facility] [place] [address] Virgie Mast MD PhD 800 [place] [address] documented as of this encounter Visit Diagnoses Not on filedocumented in this encounter Additional Health Concerns Assessment Noted Time PHQ-9 Depression Total Score: 0 04/07/20 2:31 PM EDT documented as of this encounter Care Teams Stem Processing Machine Operator Relationship Specialty Start Date End Date Sal Jose MD [facility] [address] [address] PCP - General Family Medicine 10/16/23 documented as of this encounter
--- OUTSIDE RECORDS SUMMARY | 2024-10-27 16:10 | XMS_ITS | Encounter Summary ---
Author Organization [facility] Address Unknown Care Team Providers Care Long Line Teamster Name Role Phone Sal Jose MD Primary Care Provider [phone] Encounter Details Date Type Department Care Team (Late st Contact Info) Description 11/27/2021 Scanned Document Pulmonary Critical [place] [address] [address] External, Provider Social History Tobacco Use Types [...] EDT Follow Up Pulmonary Critical [place] 136 [facility] 302 [place] [address] Ramon Nixon MD 136 [facility] 302 [place] [address] 04/28/2025 1:45 PM EDT Follow Up Stroke 800 [place] [address] Kristine Kelly MD PhD 800 [place] [address] 05/04/2025 1:00 PM EDT Follow Up Cardiovascular Medicine at 175 [facility] 175 [place] [address] Mike Hilario MD 175 [facility] [address] 2 [place] [address] 07/20/2025 11:40 AM EST Follow Up Epilepsy & Seizures at 800 [facility] 800 [facility] [place], [place] [address] Virgie Mast MD PhD 800 [place] [phone] documented as of this encounter Visit Diagnoses Not on filedocumented in this encounter Care Teams Long Line Teamster Relationship Specialty Start Date End Date Sal Jose MD 1033 [facility] [address] [place] [phone] PCP - General Family Medicine 10/16/23 documented as of this encounter
--- OUTSIDE RECORDS SUMMARY | 2024-10-27 16:10 | XMS_ITS | Encounter Summary ---
Author Organization [facility] Address [address] [place] [phone] Care Team Providers Care Grinding Machine Operator Automatic Name Role Phone Sal Jose MD Primary Care Provider [phone] Encounter Details Date Type Department Care Team (Late st Contact Info) Description 10/27/2023 Scanned Document [facility] SCHEDULING 25 [place], [place] [address] Provider, Historical . [phone] (Fax) Social History Tobacco Use Types Packs/Day [...] EDT Follow Up [place]monary Critical [place] 136 [facility] [address] [place] [address] Ramon Nixon MD 136 [facility] 302 [place] [address] 04/28/2025 1:45 PM EDT Follow Up Stroke [address] [facility] [place] [address] Kristine Kelly MD PhD 800 [place] [phone] 05/04/2025 1:00 PM EDT Follow Up Cardiovascular Medicine at 175 [facility] 175 [place] [address] Mike Hilario MD 175 [facility] [address] 2 [place] [address] 07/20/2025 11:40 AM EST Follow Up Epilepsy & Seizures at [address] [facility] [address] [facility] [place] [address] Virgie Mast MD PhD 800 [place] [address] documented as of this encounter Visit Diagnoses Not on filedocumented in this encounter Care Teams Grinding Machine Operator Automatic Relationship Specialty Start Date End Date Sal Jose MD [facility] [address] [address] PCP - General Family Medicine 10/16/23 documented as of this encounter
--- OUTSIDE RECORDS SUMMARY | 2024-10-27 16:10 | XMS_ITS | Encounter Summary ---
Author Organization [employer] [facility] Address [address] [place] [address] 7 [place] [address] Care Team Providers Care Medical Coding Instructor Name Role Phone Cordell Saba Unavailable Unavailable Encounter Details Date Type Department Care Team (Late st Contact Info) Description 10/14/2024 11:00 AM EDT Office Visit [facility] [address] [place] [address] Jamison Briscoe LLD 9 [place] [address] Social History Tobacco Use Types Packs/Day Years [...] encounter Progress Notes * BREN Marie - 10/14/2024 11:00 AM EDT Dental procedures in this visit D2394 - RESIN-BASED COMPOSITE - 4+ SURF, POSTERIOR 3 MODBL (Completed) Service provider: BREN Marie Billing provider: BREN Marie D9450 - CASE PRESENTATION, DETAILED AND EXTENSIVE TREATMENT PLANNING (Completed) Service provider: BREN Marie Billing provider: BREN Marie Completion details D2394 - RESIN-BASED COMPOSITE - 4+ SURF, POSTERIOR 3 MODBL (Completed) D9450 - CASE PRESENTATION, DETAILED AND EXTENSIVE TREATMENT PLANNING (Completed) Dx #3: Recurrent dental caries, fractured composite. Iveth: 1.00 carp of Septocaine, 4% with Epinephrine 1:100,000. #3 MODBL sites prepared. Decay/existing yarsani removed. Activa liner placed, Etched, Solo and TPH3 Shade: A3 Finished and polished. Contact verified. Occlusion verified. Concerns: POIG NV: Restore #12 MODL documented in this encounter Miscellaneous Notes * Dental Procedure Details - BREN Marie - 10/14/2024 11:00 AM EDT Dx #3: Recurrent dental caries, fractured composite. Iveth: 1.00 carp of Septocaine, 4% with Epinephrine 1:100,000. #3 MODBL sites prepared. Decay/existing yarsani removed. Activa liner placed, Etched, Solo and TPH3 Shade: A3 Finished and polished. Contact verified. Occlusion verified. Concerns: POIG NV: Restore #12 MODL documented in this encounter Plan of Treatment Upcoming Encounters Date Type Department Care Team (Late st Contact Info) Description 11/09/2024 12:00 PM EDT Office Visit [facility][1] DENTAL [address] [place] [address] Jamison Briscoe LLD 9 [place] [address] 11/11/2024 9:30 AM EDT Office Visit [facility][1] DENTAL [address] [place] [address] Jamison Briscoe LLD 9 [place] [address] 02/03/2025 10:00 AM EDT Office Visit [facility][1] OPTOMETRY [address] [place] [address] Cherelle Vidal, ELENA [address] [place] [address] 02/24/2025 12:00 PM EDT Office Visit [facility][1] DENTAL [address] [place] [address] Hanane Mason documented as of this encounter Procedures Procedure Name Priority Date/Time Associated Diagnosis Comments 3 MODBL RESIN-BASED COMPOSITE - 4+ SURF, POSTERIOR Routine 10/14/2024 11:00 AM EDT CASE PRESENTATION, DETAILED AND EXTENSIVE TREATMENT PLANNING Routine 10/14/2024 11:00 AM EDT documented in this encounter Visit Diagnoses Not on filedocumented in this encounter Care Teams Medical Coding Instructor Relationship Specialty Start Date End Date Cordell Saba [facility] Navigator 08/12/24 CASSIDY DE LA FUENTE NPI ID: [id number] Address: [address] [place] [phone] Primary Care Physician [id number] Primary Care Provider 08/12/18 documented as of this encounter
--- OUTSIDE RECORDS SUMMARY | 2024-10-27 16:10 | XMS_ITS | Encounter Summary ---
Author Organization [facility] Address [address] [place] [phone] Care Team Providers Care Park Aide Name Role Phone Sal Jose MD Primary Care Provider [phone] Encounter Details Date Type Department Care Team (Late st Contact Info) Description 10/28/2023 Scanned Document [facility] at 800 [facility] 800 [place] [address] Joao Loredo MD 800 [place] [phone] Social History Tobacco Use Types Packs/Day Years [...] Follow Up [place]monary Critical [place] 136 [facility] [address] [place], [place] [address] Ramon Nixon MD 136 [facility] 302 [place] [address] 04/28/2025 1:45 PM EDT Follow Up [facility] Stroke 800 [facility] [address] Kristine Kelly MD PhD 800 [place] [address] 05/04/2025 1:00 PM EDT Follow Up Cardiovascular Medicine at 175 [facility] 175 [place] [address] Mike Hilario MD 175 [facility] 2 [place] [address] 07/20/2025 11:40 AM EST Follow Up Epilepsy & Seizures at 800 [facility] 800 [facility] [place] [address] Virgie Mast MD PhD 800 [place] [address] documented as of this encounter Procedures Procedure [...] on filedocumented in this encounter Care Teams Park Aide Relationship Specialty Start Date End Date Sal Jose MD [address] [phone] PCP - General Family Medicine 10/16/23 documented as of this encounter
--- OUTSIDE RECORDS SUMMARY | 2024-10-27 16:10 | XMS_ITS | Encounter Summary ---
Author Organization [facility] Address Unknown Care Team Providers Care Neurology Physician Assistant Name Role Phone Sal Jose MD Primary Care Provider [phone] Encounter Details Date Type Department Care Team (Late st Contact Info) Description 11/27/2021 Scanned Document Pulmonary Critical [place] 136 [facility] 302 [place] [address] Gaviota Rivera, OT Social History Tobacco Use [...] 12:00 PM EDT Follow Up Pulmonary Critical [place] 136 [facility] 302 [place] [address] Ramon Nixon MD 136 [facility] 302 [place] [address] 04/28/2025 1:45 PM EDT Follow Up Stroke 800 [place] [address] Kristine Kelly MD PhD 800 [place] [address] 05/04/2025 1:00 PM EDT Follow Up Cardiovascular Medicine at 175 [facility] 175 [facility], [place] [address] Mike Hilario MD 175 [facility] [address] 2 [place] [address] 07/20/2025 11:40 AM EST Follow Up Epilepsy & Seizures at 800 [facility] 800 [facility] Lower [place], [place] [address] Virgie Mast MD PhD 800 [place] [address] documented as of this encounter Visit Diagnoses Not on filedocumented in this encounter Care Teams Neurology Physician Assistant Relationship Specialty Start Date End Date Sal Jose MD [address] [phone] PCP - General Family Medicine 10/16/23 documented as of this encounter
--- OUTSIDE RECORDS SUMMARY | 2024-10-27 16:10 | XMS_ITS | Encounter Summary ---
Author Organization [facility] Address Unknown Care Team Providers Care Rotary Peel Oven Tender Name Role Phone Sal Jose MD Primary Care Provider [phone] Reason for Referral * General (Routine) - New Request Specialty Diagnoses / Procedures Referred By Contac t Referred To Contact Pulmonary Disease Procedures Pulmonary Function Test ([facility]) Ramon Nixon MD [address] [place] [address] 302 [place] [address] Phone: tel: fax: Referral ID Status Reason Start Date Expiration Date V isits Requested Visits Authorized [id number] New Request 08/31/2024 08/31/2025 1 1 Encounter Details Date Type Department Care Team (Late st Contact Info) Description 08/31/2024 Scanned Document Pulmonary Critical [place] 136 [facility] 302 [place], [place] [phone] Ramon Nixon MD [address] [place] [address] 302 [place] [address] Social History Tobacco Use Types [...] EDT Follow Up [place] Critical [place] 136 [facility] [address] [place] [address] Ramon Nixon MD 136 [facility] 302 [place] [address] 04/28/2025 1:45 PM EDT Follow Up Stroke 800 [place] [address] Kristine Kelly MD PhD 800 [place] [address] 05/04/2025 1:00 PM EDT Follow Up Cardiovascular Medicine at 175 [facility] 175 [place] [address] Mike Hilario MD 175 [facility] 2 [place] [address] 07/20/2025 11:40 AM EST Follow Up Epilepsy & Seizures at 800 [facility] 800 [place] [address] Virgie Mast MD PhD 800 [place] [address] documented as of this encounter Procedures Procedure [...] documented as of this encounter Care Teams Rotary Peel Oven Tender Relationship Specialty Start Date End Date Sal Jose MD 1033 [facility] [address] [place] [phone] PCP - General Family Medicine 10/16/23 documented as of this encounter
--- OUTSIDE RECORDS SUMMARY | 2024-10-27 16:10 | XMS_ITS | Encounter Summary ---
Author Organization [facility] Address Unknown Care Team Providers Care Carpentry Instructor Name Role Phone Sal Jose MD Primary Care Provider [phone] Encounter Details Date Type Department Care Team (Late st Contact Info) Description 11/19/2022 Scanned Document Pulmonary Critical [place] [address] [address] External, Provider Social History Tobacco Use Types [...] 12:00 PM EDT Follow Up Pulmonary Critical [place] 136 [facility] 302 [place] [address] Ramon Nixon MD 136 [facility] 302 [place] [address] 04/28/2025 1:45 PM EDT Follow Up Stroke 800 [place] [address] Kristine Kelly MD PhD 800 [place] [address] 05/04/2025 1:00 PM EDT Follow Up Cardiovascular Medicine at 175 [facility] 175 [place] [address] Mike Hilario MD 175 [facility] [address] 2 [place] [address] 07/20/2025 11:40 AM EST Follow Up Epilepsy & Seizures at [address] [facility] [address] [facility] Lower [place], [place] [address] Virgie Mast MD PhD 800 [place] [address] documented as of this encounter Visit Diagnoses Not on filedocumented in this encounter Care Teams Carpentry Instructor Relationship Specialty Start Date End Date Sal Jose MD 1033 [facility] [address] [place] [phone] PCP - General Family Medicine 10/16/23 documented as of this encounter
--- OUTSIDE RECORDS SUMMARY | 2024-10-27 16:10 | XMS_ITS | Patient Health Record ---
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 Progressiv e systemic sclerosis (348381947) Problem Dysphagia, pharyngoesophageal phase (R13.14) Active confirmed Pharyngeal dysphagia (0684246654514 5) Problem Dysphonia (R49.0) Active confirmed Dysp honia (31889170) Problem Other diseases of larynx (J38.7) Active confirmed Disease of larynx (73604500) PLAN OF TREATMENT No Information Insurance Providers Payer Name Payer Address Payer Phone Subscriber Number Group Number Insured Name Patient Relationship to Insured Coverage Start Date Coverage [place] [address] [place] [address] [id number] Medicare Bernadette Zapata Self - patient is the insured 9
--- OUTSIDE RECORDS SUMMARY | 2024-10-27 16:10 | XMS_ITS | Encounter Summary ---
Author Organization [facility] Address [address] [address] Phone Care Team Providers Care Capsule Filler Name Role Phone Sal Jose MD Primary Care Provider Encounter Details Date Type Department Care Team (Late Contact Info) Description 05/25/2024 Scanned Document [facility] - [address] [phone] Nain Cat MD [address] [place] [phone] Social History Tobacco Use Types Packs/Day [...] 12:00 PM EDT Follow Up Pulmonary Critical [address] [address] Ramon Nixon MD 136 [facility] 302 [place] [address] 04/28/2025 1:45 PM EDT Follow Up Stroke 800 [place] [address] Kristine Kelly MD PhD 800 [place] [address] 05/04/2025 1:00 PM EDT Follow Up Cardiovascular Medicine at 175 [facility] 175 [place] [address] Mike Hilario MD 175 [facility] 2 [place] [phone] 07/20/2025 11:40 AM EST Follow Up Epilepsy & Seizures at 800 [facility] 800 [facility] [address] Virgie Mast MD PhD 800 [place] [address] documented as of this encounter Visit Diagnoses Not on filedocumented in this encounter Additional Health Concerns Assessment Noted Time PHQ-9 Depression Total Score: 0 04/07/20 2:31 PM EDT documented as of this encounter Care Teams Capsule Filler Relationship Specialty Start Date End Date Sal Jose MD [address] [place] [phone] PCP - General Family Medicine 10/16/23 documented as of this encounter
--- OUTSIDE RECORDS SUMMARY | 2024-10-27 16:10 | XMS_ITS | Encounter Summary ---
Author Organization [facility] Address Unknown Care Team Providers Care Radiological Health Specialist Name Role Phone Sal Jose MD Primary Care Provider [phone] Encounter Details Date Type Department Care Team (Late st Contact Info) Description 08/13/2023 Scanned Document Pulmonary Critical [place] [address] [address] External, Provider Social History Tobacco Use Types [...] 12:00 PM EDT Follow Up Pulmonary Critical [place] 136 [facility] 302 [place] [address] Ramon Nixon MD 136 [facility] 302 [place] [address] 04/28/2025 1:45 PM EDT Follow Up Stroke 800 [place] [address] Kristine Kelly MD PhD 800 [place] [address] 05/04/2025 1:00 PM EDT Follow Up Cardiovascular Medicine at 175 [facility] 175 [place] [address] Mike Hilario MD 175 [facility] [address] 2 [place] [address] 07/20/2025 11:40 AM EST Follow Up Epilepsy & Seizures at 800 [facility] 800 [facility] Lower [place], [place] [address] Virgie Mast MD PhD 800 [place] [address] documented as of this encounter Visit Diagnoses Not on filedocumented in this encounter Care Teams Radiological Health Specialist Relationship Specialty Start Date End Date Sal Jose MD 1033 [facility] [address] [place] [phone] PCP - General Family Medicine 10/16/23 documented as of this encounter
--- OUTSIDE RECORDS SUMMARY | 2024-10-27 16:10 | XMS_ITS | Encounter Summary ---
Author Organization [facility] and [facility] Address [address] [place] [phone] Care Team Providers Care Adult High School Instructor Name Role Phone Sal Jose MD Primary Care Provider Encounter Details Date Type Department Care Team (Late Contact Info) Description 12/04/2023 Transcribed Orders [facility] Laboratory Specimens [address] [place] [address] System, Provider Not In CREST variant of [...] EDT Follow Up Pulmonary Critical [place] 136 [facility] 302 [place], [place] [address] Ramon Nixon MD 136 [facility] 302 [place] [phone] 04/28/2025 1:45 PM EDT Follow Up [facility] Stroke 800 [place], [place] [address] Kristine Kelly MD PhD 800 [place] [address] 05/04/2025 1:00 PM EDT Follow Up Cardiovascular Medicine at 175 [facility] 175 [facility], [place] [address] Mike Hilario MD 175 [facility] Fl 2 [place] [address] 07/20/2025 11:40 AM EST Follow Up Epilepsy & Seizures at 800 [facility] 800 [facility] Lower Level [place], [place] [phone] Virgie Mast MD PhD 800 [place] [address] documented as of this encounter Results * Sedimentation rate (ESR) (05/20/2024 12:53 PM EDT) Pathologist [facility] Sedimentation Rate (ESR) 4 0 - 20 mm/hr 05/20/2024 1:59 PM EDT [facility] DEPARTMENT OF LABORATORY MEDICINE Blood Venipuncture / Unknown 05/20/2024 12:53 PM EDT 05/20/2024 1:31 PM EDT us Provider Not In System LAB BLOOD ORDERABLES Evelin l Result [facility] DEPARTMENT OF LABORATORY MEDICINE [address] [place] [address] * (ABNORMAL) C-reactive protein (CRP) (04/15/2024 12:20 PM EDT) CRP, High Sensitivity 3.1(H) See comment mg/L 04/15/2024 3:42 PM EDT [facility] DEPARTMENT OF LABORATORY MEDICINE Comment: [...] ORDERABLES Evelin l Result Performing Organization Address [facility] Co de Phone Number [facility] DEPARTMENT OF LABORATORY MEDICINE [address] [place] [address] * (ABNORMAL) Sedimentation rate (ESR) (04/15/2024 12:20 PM EDT) Sedimentation Rate (ESR) 24(H) 0 - 20 mm/hr 04/15/2024 3:41 PM EDT [facility] DEPARTMENT OF LABORATORY MEDICINE Blood Venipuncture / Unknown 04/15/2024 12:20 PM EDT 04/15/2024 2:54 PM EDT us Provider Not In System LAB BLOOD ORDERABLES Evelin l Result Performing Organization Address [facility] Co de Phone Number [facility] DEPARTMENT OF LABORATORY MEDICINE [address] [place] [address] * (ABNORMAL) C-reactive protein (CRP) (03/17/2024 10:36 AM EDT) CRP, High Sensitivity 6.3(H) See comment mg/L 03/17/2024 11:47 AM EDT [facility] DEPARTMENT OF LABORATORY MEDICINE Comment: [...] ORDERABLES Evelin l Result Performing Organization Address [facility]/ZIP Co de Phone Number [facility] DEPARTMENT OF LABORATORY MEDICINE [address] [place] [address] * (ABNORMAL) Sedimentation rate (ESR) (03/17/2024 10:36 AM EDT) Sedimentation Rate (ESR) 23(H) 0 - 20 mm/hr 03/17/2024 11:46 AM EDT [facility] DEPARTMENT OF LABORATORY MEDICINE Blood Venipuncture / Unknown 03/17/2024 10:36 AM EDT 03/17/2024 11:15 AM EDT Provider Not In System LAB BLOOD ORDERABLES Evelin l Result Performing Organization Address [facility] de Phone Number [facility] DEPARTMENT OF LABORATORY MEDICINE [address] [place] [address] * (ABNORMAL) C-reactive protein (CRP) (02/20/2024 3:41 PM EDT) CRP, High Sensitivity 8.9(H) See comment mg/L 02/20/2024 4:36 PM EDT [facility] DEPARTMENT OF LABORATORY MEDICINE Comment: [...] ORDERABLES Evelin l Result Performing Organization Address City/[facility] Co de Phone Number [facility] DEPARTMENT OF LABORATORY MEDICINE [address] [place] [address] * Sedimentation rate (ESR) (02/20/2024 3:41 PM EDT) Sedimentation Rate (ESR) 18 0 - 20 mm/hr 02/20/2024 7:04 PM EDT [facility] DEPARTMENT OF LABORATORY MEDICINE Blood Venipuncture / Unknown 02/20/2024 3:41 PM EDT 02/20/2024 4:04 PM EDT us Provider Not In System LAB BLOOD ORDERABLES Evelin l Result Performing Organization Address [facility] de Phone Number [facility] DEPARTMENT OF LABORATORY MEDICINE [address] [place] [address] * (ABNORMAL) C-reactive protein (CRP) (12/09/2023 1:52 PM EDT) CRP, High Sensitivity 4.4(H) See comment mg/L 12/09/2023 4:44 PM EDT [facility] DEPARTMENT OF LABORATORY MEDICINE Comment: [...] ORDERABLES Evelin l Result Performing Organization Address [facility] Co de Phone Number [facility] DEPARTMENT OF LABORATORY MEDICINE [address] [place] [address] * Sedimentation rate (ESR) (12/09/2023 1:52 PM EDT) Sedimentation Rate (ESR) 10 0 - 20 mm/hr 12/09/2023 5:08 PM EDT [facility] DEPARTMENT OF LABORATORY MEDICINE Blood Venipuncture / Unknown 12/09/2023 1:52 PM EDT 12/09/2023 4:20 PM EDT us Provider Not In System LAB BLOOD ORDERABLES Evelin l Result [facility] DEPARTMENT OF LABORATORY MEDICINE [address] [place] [address], [facility] [phone] documented in this encounter Visit Diagnoses 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
== END 2024-10-27 14:10 | disposition home or self-care (01) ==
LOC: HO.HMCFM 13:35
PROVIDERS: PCP Family Medicine; Visit Provider Nurse Practitioner Family
DX: Z09 Encounter for follow-up examination after completed treatment for conditions other than malignant neoplasm (principal); E87.6 Hypokalemia; I10 Essential (primary) hypertension; E03.9 Hypothyroidism, unspecified

== ENCOUNTER 2024-10-27 13:35 | Outpatient (REF) | payer BC, SELFPAY ==
[2024-10-27 18:31] LABS: Anion Gap 12 (12-20); Carbon Dioxide 26 mmol/L (22-29); Chloride 106 mmol/L (96-108); Potassium 3.4 mmol/L (3.3-5.1); Sodium 141 mmol/L (135-145)
== END 2024-10-27 13:36 | disposition home or self-care (01) ==
LOC: HO.WFDLDS 13:35
PROVIDERS: PCP Family Medicine; Visit Provider Nurse Practitioner Family
DX: E87.6 Hypokalemia (principal)
CPT/HCPCS: 36415; 80051

== ENCOUNTER 2024-11-04 11:41 | Outpatient (AMB) | payer MEDICARE, MEDICAID, SELFPAY ==
--- NOTE | 2024-11-04 11:34 | A.OFFPC_ITS ---
Intake Visit Reasons: f/u labs via telemed Prosthetics Lab Technician Required: No Allergies Penicillins Allergy (Severe, Verified 11/04/24 11:34) Anaphylaxis morphine Adverse Reaction (Intermediate, Verified 11/04/24 11:34) Confusion Tobacco use date assessed: 10/07/24 Dental Screening Dental Screen Date: 10/07/24 HPI f/u labs via telemed HPI Details 63 y/o female presents to f/u labs via t elemedicine. Labs drawn 10/27/24. Reviewed labs with pt. HCTZ was discontinued due to potassium levels. Potassium level now 3.4 mmol/L. [facility] Family History (Updated 10/07/24 @ 15:41 by DAYANA Sigala) Maternal Grandmother FH: mental illness Brother FH: mental illness Sister FH: mental illness Father FH: mental illness Social History (Updated 10/07/24 @ 15:42 by DAYANA Sigala) Housing: Apartment Patient Tobacco Use Status: Never used Tobacco e-Cigarette/Vaping Use: Never Used Second Hand Smoke Exposure: No Substance Use Type: Other service: No Current occupational status: retired Current occupational exposures/hazards: No Cognitive needs: Yes (aphasia ) Hearing needs: No Vision needs: Yes Questionnaire Thrive Questionnaire Date Thrive assessed: 10/07/24 FLEX-7 AMB Questionnaire FLEX-7 Date FLEX - 7 assessed: 10/07/24 Source: Developed by Drs. Venkatesh Acuna, Kay Garcia, Kings Rooney and colleagues, with an educational haim from [employer]. Physical exam (Primary Care) Tobacco/Smoking Status: Tobacco use Status Tobacco use date assessed 10/07/24 11/04/24 11:36 Patient Tobacco Use Status Never used Tobacco 11/04/24 11:36 e-Cigarette/Vaping Use Never Used 11/04/24 11:36 Thrive Assessment: Date of Thrive Assessment Date Thrive assessed 10/07/24 11/04/24 11:36 Telehealth Telehealth Telehealth Platform: Telephone Location of provider rendering services: practice address Location of patient: address on file Patient Identification confirmed using: Name, : Yes Telehealth method: voice only Patient verbally consented to treatment: Yes Patient verbally consented to billing insurance company: Yes Patient informed of any privacy concerns related to visit: Yes Coding Level of Care Code Tele Est Pt Level 2 ([address]697) Diagnoses Hypertension, unspecified type I10 Hypertension type: unspecified Hypokalemia E87.6 History of CVA (cerebrovascular accident) Z86.73 Abnormal EKG R94.31 Assessment & Plan Assessment & Plan (1) Hypertension: Code(s): I10 - Essential (primary) hypertension Category: Medical Qualifiers: Hypertension type: unspecified Qualified Code(s): I10 - Essential (primary) hypertension Plan: Systolic Blood?pressure?at?home?is?still?running?140-160 She?was?take n?off?hydrochlorothiazide?due?to?history?of?low?potassium?levels?though?I?do?not ?see?any?recent?low?potassium?levels. Tolerating?metoprolol?well?and?continues?amlodipine-benazepril?as?prescribed She?w ill?check?her?blood?pressures?at?home?and?if?her?systolic?blood?pressures?greate r?than?140,?she?can?take?a?2nd?metoprolol She?has?an?appointment?with?me?next?week (2) Hypokalemia: Code(s): E87.6 - Hypokalemia Category: Medical Plan: No?recent?low?potassium?levels Will?continue?monitor (3) History of CVA (cerebrovascular accident): Code(s): Z86.73 - Personal history of transient ischemic attack (TIA), and cerebral infarction without residual deficits Category: Medical Plan: History?of?carotid?atherosclerosis?with?right?carotid?stent History?of?CVA?and?patient?notes?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 Notes?from?[facility] mention?that?she?has?stated?a?history?of?moyamoya?but?that?they?did?not?see definitive?evidence?of?this. Nevertheless,?she?seems?to?have?a?significant?history thrombosis?and?vasculopathy. Waiting?further?notes?from?Neurology. (4) Abnormal EKG: Code(s): R94.31 - Abnormal electrocardiogram [ECG] [EKG] Category: Medical Plan: Abnormal?EKG. 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 have?not?received?these. At?this?point,?and?considering?that?she?has?significant?vasculopathy?and?abnorm al?EKG,?I?think?it?would?be?a?good?idea?for?her?to?have?a?loop?brick cleaner?as?w ell.??Referred?to?brick cleaner?and?patient?agrees?with. Orders: Referrals Cardiology Referral I10 - Essential (primary) hypertension, R94.31 - Abnormal electrocardiogram [ECG] [EKG], Z86.73 - Personal history of transient ischemic attack (TIA), and cerebral infarction without residual deficits Medications: Changed From metoprolol succinate ER 25 mg PO DAILY 30 tabs 0RF To metoprolol succinate ER 25 mg PO BID 180 tabs 2RF 90 days
--- OUTSIDE RECORDS SUMMARY | 2024-11-04 12:57 | XMS_ITS | Encounter Summary ---
Author Organization [facility] and [facility] Address [address] [place] [phone] Care Team Providers Care Assembler Trim Name Role Phone Sal Jose MD Primary Care Provider [phone] Encounter Details Date Type Department Care Team (Late st Contact Info) Description 10/27/2023 Scanned Document [facility]ARE [facility]ENTER SCHEDULING 25 [place], [place] [address] Provider, Historical . [phone] (Fax) Social History Tobacco Use Types Packs/Day [...] [place] 136 [facility] [address] [place] [address] Ramon Nixon MD 136 [facility] [address] 302 [place] [address] 04/28/2025 1:45 PM EDT Follow Up Stroke 800 [facility] [place] [address] Kristine Kelly MD PhD 800 [place] [address] 05/04/2025 1:00 PM EDT Follow Up Cardiovascular Medicine at 175 [facility] 175 [place] [address] Mike Hilario MD 175 [facility] [address] 2 [place] [phone] 07/20/2025 11:40 AM EST Follow Up Epilepsy & Seizures at 800 [facility] 800 [facility] [place] [address] Virgie Mast MD PhD 800 [place] [address] documented as of this encounter Visit Diagnoses Not on filedocumented in this encounter Care Teams Assembler Trim Relationship Specialty Start Date End Date Sal Jose MD [facility] [address] PCP - General Family Medicine 10/16/23 documented as of this encounter
--- OUTSIDE RECORDS SUMMARY | 2024-11-04 12:57 | XMS_ITS | Encounter Summary ---
Author Organization [facility] Address Unknown Care Team Providers Care Impregnation Operator Name Role Phone Sal Jose MD Primary Care Provider Encounter Details Date Type Department Care Team (Late st Contact Info) Description 08/27/2023 Scanned Document Pulmonary Critical [place] [address] [address] External, Provider Social History Tobacco Use Types [...] 12:00 PM EDT Follow Up Pulmonary Critical [place] 136 [facility] 302 [place] [address] Ramon Nixon MD 136 [facility] 302 [place] [address] 04/28/2025 1:45 PM EDT Follow Up Stroke 800 [place] [address] Kristine Kelly MD PhD 800 [place] [address] 05/04/2025 1:00 PM EDT Follow Up Cardiovascular Medicine at 175 [facility] 175 [place] [address] Mike Hilario MD 175 [facility] Fl 2 [place] [address] 07/20/2025 11:40 AM EST Follow Up Epilepsy & Seizures at 800 [facility] 800 [facility] Lower [place], [place] [address] Virgie Mast MD PhD 800 [place] [address] documented as of this encounter Procedures Procedure Name Priority Date/Time Associated Diagnosis Comments CARDIAC ECHO RESULT SCAN Routine 08/27/2023 documented in this encounter Results * Cardiac Echo Result Scan (08/27/2023) Provider External CV CARDIAC REPORT (CVR) Final Result documented in this encounter Visit Diagnoses Not on filedocumented in this encounter Care Teams Impregnation Operator Relationship Specialty Start Date End Date Sal Jose MD 1033 [facility] [address] [place] [phone] PCP - General Family Medicine 10/16/23 documented as of this encounter
--- OUTSIDE RECORDS SUMMARY | 2024-11-04 12:57 | XMS_ITS | Encounter Summary ---
Author Organization [facility] and [facility] Address [address] [place] [address] Care Team Providers Care Radiator Tester Name Role Phone Sal Jose MD Primary Care Provider [phone] Encounter Details Date Type Department Care Team (Late st Contact Info) Description 10/28/2023 Scanned Document [facility] Neurosurgery at 800 [facility] 800 [place] [address] Joao Loredo MD 800 [place] [phone] Social History Tobacco Use Types Packs/Day Years [...] 136 [facility] [address] [place], [place] [address] Ramon Nixon MD 136 [facility] 302 [place] [phone] 04/28/2025 1:45 PM EDT Follow Up YM Stroke 800 [place] [address] Kristine Kelly MD PhD 800 [place] [address] 05/04/2025 1:00 PM EDT Follow Up Cardiovascular Medicine at 175 [facility] 175 [place] [address] Mike Hilario MD 175 [facility] 2 [place] [address] 07/20/2025 11:40 AM EST Follow Up Epilepsy & Seizures at 800 [facility] 800 [place] [address] Virgie Mast MD PhD 800 [place] [address] documented as of this encounter Procedures Procedure [...] on filedocumented in this encounter Care Teams Radiator Tester Relationship Specialty Start Date End Date Sal Jose MD [address] [address] PCP - General Family Medicine 10/16/23 documented as of this encounter
--- OUTSIDE RECORDS SUMMARY | 2024-11-04 12:57 | XMS_ITS | Encounter Summary ---
Author Organization [facility] and [facility] Address [address] [place] [address] Care Team Providers Care Eligibility And Occupancy Interviewer Name Role Phone Sal Jose MD Primary Care Provider [phone] Encounter Details Date Type Department Care Team (Late st Contact Info) Description 10/17/2023 Scanned Document [facility] Stroke 800 [place] [address] Kristine Kelly MD PhD 800 [place] [address] Social History Tobacco Use Types Packs/Day Years [...] EDT Follow Up Pulmonary Critical [place] 136 [facility] 302 [place], [place] [address] Ramon Nixon MD 136 [facility] 302 [place] [phone] 04/28/2025 1:45 PM EDT Follow Up Y[facility] Stroke 800 [place] [address] Kristine Kelly MD PhD 800 [place] [address] 05/04/2025 1:00 PM EDT Follow Up Cardiovascular Medicine at 175 [facility] 175 [place], [place] [address] Mike Hilario MD 175 [facility] 2 [place] [address] 07/20/2025 11:40 AM EST Follow Up Epilepsy & Seizures at 800 [facility] 800 [place] [address] Virgie Mast MD PhD 800 [place] [phone] documented as of this encounter Visit Diagnoses Not on filedocumented in this encounter Care Teams Eligibility And Occupancy Interviewer Relationship Specialty Start Date End Date Sal Jose MD [facility] [phone] PCP - General Family Medicine 10/16/23 documented as of this encounter
--- OUTSIDE RECORDS SUMMARY | 2024-11-04 12:57 | XMS_ITS | Encounter Summary ---
Author Organization [facility] and [facility] Address [address] [place] [phone] Care Team Providers Care Art Glass Designer Name Role Phone Sal Jose MD Primary Care Provider Reason for Visit * Reason Onset Date Comments Holter/Event Monitor 11/13/2023 Trying to E nroll Pt for MCT monitor Encounter Details Date Type Department Care Team (Late st Contact Info) Description 11/13/2023 Telephone [facility] Stroke 800 [place], [place] [address] Kristine Kelly MD PhD 800 [place] [phone] Holter/Event Monitor (Trying to Enroll Pt for [...] [place] 136 [facility] 302 [place] [address] Ramon Nixon MD 136 [facility] 302 [place] [phone] 04/28/2025 1:45 PM EDT Follow Up YM Stroke 800 [place] [address] Kristine Kelly MD PhD 800 [place] [phone] 05/04/2025 1:00 PM EDT Follow Up Cardiovascular Medicine at 175 [facility] 175 [facility], [place] [address] Mike Hilario MD 175 [facility] Fl 2 [place] [address] 07/20/2025 11:40 AM EST Follow Up Epilepsy & Seizures at 800 [facility] 800 [facility] [place] [address] Virgie Mast MD PhD 800 [place] [address] documented as of this encounter Visit Diagnoses Not on filedocumented in this encounter Care Teams Art Glass Designer Relationship Specialty Start Date End Date Sal Jose MD [facility] [address] [address] PCP - General Family Medicine 10/16/23 documented as of this encounter
--- OUTSIDE RECORDS SUMMARY | 2024-11-04 12:57 | XMS_ITS | Encounter Summary ---
Author Organization [facility] and [facility] Address [address] [place] [phone] Care Team Providers Care Angle Bender Name Role Phone Sal Jose MD Primary Care Provider [phone] Encounter Details Date Type Department Care Team (Late st Contact Info) Description 10/28/2023 Scanned Document CARE CENTER SCHEDULING 25 [place], [place] [address] Provider, Historical . [phone] (Fax) Social History Tobacco Use Types Packs/Day [...] EDT Follow Up Pulmonary Critical [place] 136 [facility] [address] [place] [address] Ramon Nixon MD 136 [facility] [address] 302 [place] [address] 04/28/2025 1:45 PM EDT Follow Up Stroke 800 [facility] [place] [address] Kristine Kelly MD PhD 800 [place] [address] 05/04/2025 1:00 PM EDT Follow Up Cardiovascular Medicine at 175 [facility] 175 [facility] [place] [address] Mike Hilario MD 175 [facility] [address] 2 [place] [address] 07/20/2025 11:40 AM EST Follow Up Epilepsy & Seizures at 800 [facility] 800 [facility] [place] [address] Virgie Mast MD PhD 800 [facility] [place], [place] [address] documented as of this encounter Procedures Procedure [...] on filedocumented in this encounter Care Teams Angle Bender Relationship Specialty Start Date End Date Sal Jose MD 1033 [facility] [address] [place] [phone] PCP - General Family Medicine 10/16/23 documented as of this encounter
--- OUTSIDE RECORDS SUMMARY | 2024-11-04 12:57 | XMS_ITS | Encounter Summary ---
Author Organization [facility] and [facility] Address [address] [place] [phone] Care Team Providers Care Quality Assurance Supervisor Final Name Role Phone Sal Jose MD Primary Care Provider Encounter Details Date Type Department Care Team (Late st Contact Info) Description 10/28/2023 Scanned Document [facility] at 800 [facility] 800 [place] [address] Joao Loredo MD 800 [place] [phone] Social History Tobacco Use Types Packs/Day Years [...] EDT Follow Up Pulmonary Critical [place] 136 [facility] [address] [place], [place] [address] Ramon Nixon MD 136 [facility] 302 [place] [phone] 04/28/2025 1:45 PM EDT Follow Up Y[facility] Stroke 800 [place] [address] Kristine Kelly MD PhD [address] [place] [phone] 05/04/2025 1:00 PM EDT Follow Up Cardiovascular Medicine at 175 [facility] 175 [facility] [address] Mike Hilario MD 175 [facility] 2 [place] [address] 07/20/2025 11:40 AM EST Follow Up Epilepsy & Seizures at 800 [facility] 800 [place] [address] Virgie Mast MD PhD [address] [place] [phone] documented as of this encounter Procedures Procedure [...] MRI Result Scan (04/12/2020 12:01 PM EDT) [facility] Provider IMG SCAN REPORTS Final Resul t * MRI Result Scan (04/12/2020 11:55 AM EDT) Historical Provider IMG SCAN REPORTS Final Resul t * MRI Result Scan (04/08/2020 12:04 PM EDT) [facility] Provider IMG SCAN REPORTS Final Resul [...] CT Result Scan (09/28/2012 12:30 PM EST) [facility] Provider IMG SCAN REPORTS Final Resul t * CT Result Scan (09/07/2012 12:34 PM EST) [facility] Provider IMG SCAN REPORTS Final Resul t * CT Result Scan (02/13/2012 12:38 PM EDT) Historical Provider IMG SCAN REPORTS Final Resul t * CT Result Scan (12/17/2010 1:03 PM EDT) [facility] Provider IMG SCAN REPORTS Final Resul t * CT Result Scan (12/17/2010 1:00 PM EDT) [facility] Provider IMG SCAN REPORTS Final Resul t * CT Result Scan (12/17/2010 12:56 PM EDT) Result [facility] Provider IMG SCAN REPORTS Final Resul t * CT Result Scan (12/17/2010 12:52 PM EDT) Result [facility] Provider IMG SCAN REPORTS Final Resul t * CT Result Scan (12/17/2010 12:46 PM EDT) [facility] Provider IMG SCAN REPORTS Final Resul t * CT Result Scan (12/17/2010 12:41 PM EDT) Historical Provider IMG SCAN REPORTS Final Resul t documented in this encounter Visit Diagnoses Not on filedocumented in this encounter Care Teams Quality Assurance Supervisor Final Relationship Specialty Start Date End Date Sal Jose MD [address] [phone] PCP - General Family Medicine 10/16/23 documented as of this encounter
--- OUTSIDE RECORDS SUMMARY | 2024-11-04 12:57 | XMS_ITS | Encounter Summary ---
Author Organization [facility] and [facility] Address [address] [place] [address] Care Team Providers Care Color Paste Mixer Name Role Phone Sal Jose MD Primary Care Provider [phone] Encounter Details Date Type Department Care Team (Late Contact Info) Description 07/21/2024 Transcribed Orders [facility] 55 [place] [address] System, Provider Not In CRST syndrome (HC [...] [place] 136 [facility] 302 [place], [place] [phone] Ramon Nixon MD [address] [place] [phone] 04/28/2025 1:45 PM EDT Follow Up Stroke 800 [place] [address] Kristine Kelly MD PhD 800 [place] [phone] 05/04/2025 1:00 PM EDT Follow Up Cardiovascular Medicine at 175 [facility] 175 [place] [address] Mike Hilario MD [address] [place] [address] 2 [place] [phone] 07/20/2025 11:40 AM EST Follow Up Epilepsy & Seizures at 800 [facility] 800 [place] [address] Virgie Mast MD PhD 800 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
--- OUTSIDE RECORDS SUMMARY | 2024-11-04 12:57 | XMS_ITS | Encounter Summary ---
Author Organization [facility] and [facility] Address [address] [place] [phone] Care Team Providers Care Automotive Exhaust Emissions Technician Name Role Phone Sal Jose MD Primary Care Provider Encounter Details Date Type Department Care Team (Late Contact Info) Description 08/31/2024 Transcribed Orders [facility]ens 55 [place] [address] System, Provider Not In CRST syndrome (HC [...] [place] 136 [facility] 302 [place], [place] [phone] Ramon Nixon MD [address] [place] [phone] 04/28/2025 1:45 PM EDT Follow Up Stroke 800 [facility] [place] [address] Kristine Kelly MD PhD 800 [facility] [place] [address] 05/04/2025 1:00 PM EDT Follow Up Cardiovascular Medicine at 175 [facility] 175 [facility] [place] [address] Mike Hilario MD [address] [place] [address] 2 [place] [address] 07/20/2025 11:40 AM EST Follow Up Epilepsy & Seizures at 800 [facility] 800 [place] [address] Virgie Mast MD PhD 800 [facility] [place] [address] Scheduled Orders Name Type Priority Associated Diagnoses [...] documented as of this encounter Care Teams Automotive Exhaust Emissions Technician Relationship Specialty Start Date End Date Sal Jose MD 1033 [facility] [address] [place] [phone] PCP - General Family Medicine 10/16/23 documented as of this encounter
--- OUTSIDE RECORDS SUMMARY | 2024-11-04 12:57 | XMS_ITS | Encounter Summary ---
Author Organization [facility] Address [address] [address] Phone Care Team Providers Care Extractor Operator Solvent Process Name Role Phone Sal Jose MD Primary Care Provider [phone] Encounter Details Date Type Department Care Team (Late Contact Info) Description 05/25/2024 Scanned Document [facility] - [address] [phone] Nain Cat MD [address] [place] [phone] Social History Tobacco Use Types Packs/Day [...] 12:00 PM EDT Follow Up Pulmonary Critical [address] [address] Ramon Nixon MD 136 [facility] 302 [place] [address] 04/28/2025 1:45 PM EDT Follow Up Stroke 800 [place] [address] Kristine Kelly MD PhD 800 [place] [phone] 05/04/2025 1:00 PM EDT Follow Up Cardiovascular Medicine at 175 [facility] 175 [place] [address] Mike Hilario MD 175 [facility] 2 [place] [phone] 07/20/2025 11:40 AM EST Follow Up Epilepsy & Seizures at 800 [facility] 800 [place] [address] Virgie Mast MD PhD 800 [place] [phone] documented as of this encounter Visit Diagnoses Not on filedocumented in this encounter Additional Health Concerns Assessment Noted Time PHQ-9 Depression Total Score: 0 04/07/20 2:31 PM EDT documented as of this encounter Care Teams Extractor Operator Solvent Process Relationship Specialty Start Date End Date Sal Jose MD [address] [place] [phone] PCP - General Family Medicine 10/16/23 documented as of this encounter
--- OUTSIDE RECORDS SUMMARY | 2024-11-04 12:57 | XMS_ITS | Clinical Summary ---
Author Organization [facility] Address 20 [place] [address] Phone Care Team Providers Care Mail Forwarding System Markup Clerk Name Role Phone Sal Jose MD Primary Care Provider Allergies Active Allergy Reactions Criticality Noted Date [...] 4:00 PM EST Follow Up Pulmonary Critical [place] 136 [facility] 302 [place] [address] Ramon Nixon MD ILD (interstitial lung disease) (HC Code) (HC CODE) (HC Code) (Primary Dx); Mild persistent asthma with acute exacerbation 08/31/2024 Scanned Document [place]monary Critical [place] 136 [facility] 302 [place] [address] Ramon Nixon MD 08/31/2024 Transcribed Orders [facility] Spec[facility]ens 55 [place] [address] System, Provider Not In CRST syndrome (HC Code) (HC CODE) (HC Code) (Primary Dx) 08/25/2024 Telephone [facility] [place] 46 [facility], 306 [place] [address] Nain Cat MD Appointment (Missed Study ) 08/11/2024 12:15 PM EST Telemedicine Pulmonary Critical [place] 136 [facility] 302 [place] [address] Ramon Nixon MD Mild persistent asthma with [...] EDT Follow Up Pulmonary Critical [place] 136 [facility] [address] [place] [address] Ramon Nixon MD 136 [facility] 302 [place] [address] 04/28/2025 1:45 PM EDT Follow Up Stroke 800 [place] [address] Kristine Kelly MD PhD 800 [place] [phone] 05/04/2025 1:00 PM EDT Follow Up Cardiovascular Medicine at 175 [facility] 175 [place] [address] Mike Hilario MD 175 [facility] 2 [place] [address] 07/20/2025 11:40 AM EST Follow Up Epilepsy & Seizures at 800 [facility] 800 [place] [address] Virgie Mast MD PhD 800 [place] [phone] Health Maintenance Due Date Last Done Comments HIV screening 1974 Hepatitis C screening 11/22/1979 Lipid disorder screening 2001 Colon cancer screening, Colonoscopy 2006 Cervical cancer screening 02/25/2019 02/25/2014 RSV Immunization (1 - Risk 60-74 years 1-dose series) 2021 Pneumococcal Vaccine (50+ years) (3 of 3 - PPSV23 or PCV20) 04/16/2023 04/16/2018, 06/09/2015 Covid-19 vaccine series (2 - 2023- season) 2024 12/06/2021 Breast cancer screening 09/11/2024 09/11/19, 09/11/2022, 03/02/2019, Additional history exists Influenza vaccine 04/04/2025 09/03/2021, , 04/01/2019, Additional history exists Diabetes screening 07/23/2027 07/23/2024, [...] Function Test (08/31/2024 4:23 PM EST) FEV1 [facility] FVC [facility] FEV1/FVC [facility] TLC [facility] PE max %Post Pred [facility] FEF50 [facility] FIF50 [facility] 08/31/2024 4:23 PM EST Impressions [facility] - 08/31/2024 4:23 PM EST Mild restrictive pattern. Improvement after bronchodilator could indicate airway hyper-reactivity. Narrative [facility] - 08/31/2024 4:23 PM EST Spirometry: FVC is moderately reduced. . FEV1 is mildly reduced. FEV1/FVC ratio is normal. The significant improvement after bronchodilator may be effort related. Flow Volume Loop: Normal contour. Lung Volumes: TLC is mildly reduced. RV is normal. Diffusion Capacity: Mildly reduced. us Ramon Nixon MD POINT OF CARE TEST ORDERABLES Ed ited Result - Final [facility] [place], [place], [place] * Pulmonary Function Test ([facility]) (08/31/2024 4:13 PM EST) us Ramon Nixon MD PFT ORDERABLES Final Result * Comprehensive metabolic panel (07/23/2024 1:13 PM EST) Sodium 144 136 - 144 mmol/L 07/23/2024 3:09 PM EST [facility] MEDIC[facility] Potassium 4.2 3.3 - 5.3 mmol/L 07/23/2024 3:09 PM EST [facility] MEDIC[facility] Chloride 105 98 - 107 mmol/L 07/23/2024 3:09 PM EST [facility] MEDIC[facility] CO2 26 20 - 30 mmol/L 07/23/2024 3:09 PM EST [facility]INE Anion Gap 13 7 - 17 07/23/2024 3:09 PM EST [facility] Glucose 89 70 - 100 mg/dL 07/23/2024 3:09 PM EST [facility] LAB[facility]ORY MEDICINE BUN 13 8 - 23 mg/dL 07/23/2024 3:09 PM EST [facility] OF LAB[facility] MED[facility] Creatinine 0.72 0.40 - 1.30 mg/dL 07/23/2024 3:09 PM [facility] OF LABORATORY MEDICINE Calcium 9.7 8.8 - 10.2 mg/dL 07/23/2024 3:09 PM [facility] LAB[facility]ATORY MEDICINE BUN/Creatinine Ratio 18.1 8.0 - 23.0 07/23/2024 3:09 PM [facility] MEDICINE Total Protein 6.7 5.9 - 8.3 g/dL 024 3:09 PM [facility] Comment:As of 2023, th e reference interval for Total Protein has been changed from (6.6 to 8.7 g/dL) to (5.9 to 8.3 g/dL). Albumin 4.3 3.6 - 5.1 g/dL 07/23/2024 3:09 PM [facility] MED[facility] Comment:As of 2023, th e reference interval for Albumin has been changed from (3.6 to 4.9 g/dL) to (3.6 to 5.1 g/dL). Total Bilirubin 0.6 <=1.2 mg/dL 07/23/20 3:09 PM [facility] MEDIC[facility] Alkaline Phosphatase 113 9 - 122 U/L 07/23/2024 3:09 PM [facility]IC[facility] Alanine Aminotransferase (ALT) 27 10 - 35 U/L 07/23/2024 3:09 PM [facility] Comment:Calcium dobesilate c an cause artificially low ALT results at therapeutic concentrations Aspartate Aminotransferase (AST) 23 10 - 35 U/L 07/23/2024 3:09 PM [facility] MED[facility] Globulin 2.4 2.0 - 3.9 g/dL 07/23/2024 3:09 PM [facility]IC[facility] Comment:As of 2023, th e reference interval for Globulin has been changed from (2.3 to 3.5 g/dL) to (2.0 to 3.9 g/dL). A/G Ratio 1.8 1.0 - 2.2 07/23/2024 3:09 PM [facility] MEDICINE AST/ALT Ratio 0.9 Reference Range Not Established 07/23/2024 3:09 PM EST [facility]ORY MEDICINE eGFR (Creatinine) >60 >=60 mL/min/1.73m2 07/23/2024 3:09 PM [facility]ATORY MEDICINE Comment: [facility] utilizes CKD-EPI Creatinine 2020 to report eGFR. Values < 60 mL/min/1.73 m2 may indicate CKD if present for more than three months AND creatinine is at steady state. The eGFR provides a rough estimate of kidney function. For further guidance, please refer to the CKD: Adult Harpooner Signature pathway. Creatinine Delta 0.01 See Comment 3:09 PM [facility]ATORY MEDICINE Comment: Delta creatinine [...] BLOOD ORDERABLES Evelin smith Result [facility] OF LAB[facility]ORY MEDICINE [address] [place] [address], [place] [phone] from Last 3 Months or Most Recently Relevant to Health Maintenance [place] 1[place] [id number] BCBS MCR MGD 1-D [facility] RYANGARCIA [id number] [facility]-D Jerry [facility] RYANGARCIA [address] [facility] 1-D Jerryeileen DAVISGARCIA [id number] [facility] MGD 1[place] [address] BCBS Member Subscriber Plan / Payer (Ef fective 2018-Present) Name:Bernadette Mercedes Relation to Subscriber:Self Name:Bernadette Mercedes Payer ID:[id number] (NAIC) Type:Not on file Address: [facility] [address] [phone] Care Teams Mail Forwarding System Markup Clerk Relationship Specialty Start Date End Date Sal Jose MD 1033 [facility] [address] [place] [phone] PCP - General Family Medicine 10/16/23
--- OUTSIDE RECORDS SUMMARY | 2024-11-04 12:57 | XMS_ITS | Encounter Summary ---
Author Organization [facility] and [facility] Address 20 [place] [address] Care Team Providers Care Status Controller Name Role Phone Sal Jose MD Primary Care Provider Encounter Details Date Type Department Care Team (Late st Contact Info) Description 08/14/2023 Transcribed Orders EXTERNAL REFERRAL SOURCE 20 [place] [address] Referral, Self Social History Tobacco Use Types [...] EDT Follow Up Pulmonary Critical [place] 136 [facility] 302 [place] [address] Ramon Nixon MD 136 [facility] 302 [place] [address] 04/28/2025 1:45 PM EDT Follow Up Stroke 800 [place] [address] Kristine Kelly MD PhD 800 [place] [address] 05/04/2025 1:00 PM EDT Follow Up Cardiovascular Medicine at 175 [facility] 175 [place], [place] [address] Mike Hilario MD 175 [facility] 2 [place] [phone] 07/20/2025 11:40 AM EST Follow Up Epilepsy & Seizures at 800 [facility] 800 [facility] Lower [place], [place] [address] Virgie Mast MD PhD 800 [place] [phone] documented as of this encounter Visit Diagnoses Not on filedocumented in this encounter Care Teams Status Controller Relationship Specialty Start Date End Date Sal Jose MD [address] [place] [phone] PCP - General Family Medicine 10/16/23 documented as of this encounter
--- OUTSIDE RECORDS SUMMARY | 2024-11-04 12:57 | XMS_ITS | Encounter Summary ---
Author Organization [facility] and [facility] Address [address] [place] [phone] Care Team Providers Care Bilingual Account Manager Name Role Phone Sal Jose MD Primary Care Provider [phone] Encounter Details Date Type Department Care Team (Late st Contact Info) Description 10/28/2023 Scanned Document [facility] at 800 [facility] 800 [place] [address] Joao Loredo MD 800 [place] [phone] Social History Tobacco Use Types Packs/Day Years [...] EDT Follow Up Pulmonary Critical [place] 136 [facility] [address] [place], [place] [address] Ramon Nixon MD 136 [facility] 302 [place] [address] 04/28/2025 1:45 PM EDT Follow Up YM Stroke 800 [place] [address] Kristine Kelly MD PhD 800 [place] [address] 05/04/2025 1:00 PM EDT Follow Up Cardiovascular Medicine at 175 [facility] 175 [place] [address] Mike Hilario MD 175 [facility] 2 [place] [address] 07/20/2025 11:40 AM EST Follow Up Epilepsy & Seizures at 800 [facility] 800 [facility] [place] [address] Virgie Mast MD PhD 800 [place] [phone] documented as of this encounter Visit Diagnoses Not on filedocumented in this encounter Care Teams Bilingual Account Manager Relationship Specialty Start Date End Date Sal Jose MD [address] [phone] PCP - General Family Medicine 10/16/23 documented as of this encounter
--- OUTSIDE RECORDS SUMMARY | 2024-11-04 12:57 | XMS_ITS | Encounter Summary ---
Author Organization [facility] and [facility] Address 20 [place] [address] Care Team Providers Care Skin Care Therapist Name Role Phone Sal Jose MD Primary Care Provider Encounter Details Date Type Department Care Team (Late st Contact Info) Description 08/13/2023 Scanned Document EXTERNAL REFERRAL SOURCE 20 [place] [address] External, Provider Social History Tobacco Use Types [...] EDT Follow Up Pulmonary Critical [place] 136 [facility] 302 [place] [address] Ramon Nixon MD 136 [facility] 302 [place] [address] 04/28/2025 1:45 PM EDT Follow Up Stroke 800 [place] [address] Kristine Kelly MD PhD 800 [place] [address] 05/04/2025 1:00 PM EDT Follow Up Cardiovascular Medicine at 175 [facility] 175 [place], [place] [address] Mike Hilario MD 175 [facility] 2 [place] [address] 07/20/2025 11:40 AM EST Follow Up Epilepsy & Seizures at 800 [facility] 800 [facility] Lower Level [place], [place] [address] Virgie Mast MD PhD 800 [place] [phone] documented as of this encounter Visit Diagnoses Not on filedocumented in this encounter Care Teams Skin Care Therapist Relationship Specialty Start Date End Date Sal Jose MD [address] [place] [phone] PCP - General Family Medicine 10/16/23 documented as of this encounter
--- OUTSIDE RECORDS SUMMARY | 2024-11-04 12:57 | XMS_ITS | Encounter Summary ---
Author Organization [facility] Address Unknown Care Team Providers Care Supervisor Shop Name Role Phone Sal Jose MD Primary Care Provider [phone] Reason for Referral * General (Routine) - New Request Specialty Diagnoses / Procedures Referred By Contac t Referred To Contact Pulmonary Disease Procedures Pulmonary Function Test ([facility]) Ramon Nixon MD [address] [place] [address] 302 [place] [address] Phone: tel: fax: Referral ID Status Reason Start Date Expiration Date V isits Requested Visits Authorized [id number] New Request 08/31/2024 08/31/2025 1 1 Encounter Details Date Type Department Care Team (Late st Contact Info) Description 08/31/2024 Scanned Document Pulmonary Critical [place] 136 [facility] 302 [place], [place] [phone] Ramon Nixon MD [address] [place] [address] 302 [place] [address] Social History Tobacco Use Types [...] EDT Follow Up Pulmonary Critical [place] 136 [facility] [address] [place] [address] Ramon Nixon MD 136 [facility] 302 [place] [address] 04/28/2025 1:45 PM EDT Follow Up Stroke 800 [place] [address] Kristine Kelly MD PhD 800 [place] [address] 05/04/2025 1:00 PM EDT Follow Up Cardiovascular Medicine at 175 [facility] 175 [place] [address] Mike Hilario MD 175 [facility] 2 [place] [address] 07/20/2025 11:40 AM EST Follow Up Epilepsy & Seizures at 800 [facility] 800 [place] [address] Virgie Mast MD PhD 800 [place] [phone] documented as of this encounter Procedures Procedure [...] documented as of this encounter Care Teams Supervisor Shop Relationship Specialty Start Date End Date Sal Jose MD 1033 [facility] [address] [place] [phone] PCP - General Family Medicine 10/16/23 documented as of this encounter
--- OUTSIDE RECORDS SUMMARY | 2024-11-04 12:57 | XMS_ITS | Encounter Summary ---
Author Organization [facility] Address Unknown Care Team Providers Care Patcher Wood Welder Name Role Phone Sal Jose MD Primary Care Provider [phone] Encounter Details Date Type Department Care Team (Late st Contact Info) Description 05/11/2024 Scanned Document Pulmonary Critical [place] 136 [facility] [address] [place], [place] [address] Ramon Nixon MD 136 [facility] 302 [place] [phone] Social History Tobacco Use Types Packs/Day Years [...] EDT Follow Up Pulmonary Critical [place] 136 [facility] [address] [place], [place] [phone] Ramon Nixon MD 136 [facility] 302 [place] [address] 04/28/2025 1:45 PM EDT Follow Up Stroke 800 [facility] [address] Kristine Kelly MD PhD 800 [place] [phone] 05/04/2025 1:00 PM EDT Follow Up Cardiovascular Medicine at 175 [facility] 175 [place] [address] Mike Hilario MD 175 [facility] 2 [place] [address] 07/20/2025 11:40 AM EST Follow Up Epilepsy & Seizures at [address] [facility] 800 [facility] [place] [address] Virgie Mast MD PhD 800 [place] [phone] documented as of this encounter Visit Diagnoses Not on filedocumented in this encounter Additional Health Concerns Assessment Noted Time PHQ-9 Depression Total Score: 0 04/07/20 2:31 PM EDT documented as of this encounter Care Teams Patcher Wood Welder Relationship Specialty Start Date End Date Sal Jose MD [facility] [address] [phone] PCP - General Family Medicine 10/16/23 documented as of this encounter
--- OUTSIDE RECORDS SUMMARY | 2024-11-04 12:57 | XMS_ITS | Encounter Summary ---
Author Organization [facility] Address [address] [place] [phone] Care Team Providers Care Health Policy Nurse Name Role Phone Sal Jose MD Primary Care Provider Encounter Details Date Type Department Care Team (Late Contact Info) Description 12/04/2023 Transcribed Orders [facility] Specimens [address] [place] [address] System, Provider Not In CREST variant of [...] EDT Follow Up Pulmonary Critical [place] 136 [facility] 302 [place], [place] [address] Ramon Nixon MD 136 [facility] 302 [place] [phone] 04/28/2025 1:45 PM EDT Follow Up [facility] Stroke 800 [place], [place] [address] Kristine Kelly MD PhD 800 [place] [address] 05/04/2025 1:00 PM EDT Follow Up Cardiovascular Medicine at 175 [facility] 175 [facility], [place] [address] Mike Hilario MD 175 [facility] Fl 2 [place] [address] 07/20/2025 11:40 AM EST Follow Up Epilepsy & Seizures at 800 [facility]Note 3] 800 [facility][Note 3] Lower Level [place], [place] [phone] Virgie Mast MD PhD 800 [place] [address] documented as of this encounter Results * Sedimentation rate (ESR) (05/20/2024 12:53 PM EDT) Pathologist [facility] Sedimentation Rate (ESR) 4 0 - 20 mm/hr 05/20/2024 1:59 PM EDT [facility] DEPARTMENT OF LABORATORY MEDICINE Blood Venipuncture / Unknown 05/20/2024 12:53 PM EDT 05/20/2024 1:31 PM EDT us Provider Not In System LAB BLOOD ORDERABLES Evelin l Result [facility] DEPARTMENT OF LABORATORY MEDICINE [address] [place] [address] * (ABNORMAL) C-reactive protein (CRP) (04/15/2024 12:20 PM EDT) CRP, High Sensitivity 3.1(H) See comment mg/L 04/15/2024 3:42 PM EDT [facility] DEPARTMENT OF LABORATORY MEDICINE Comment: [...] ORDERABLES Evelin l Result Performing Organization Address [facility] Co de Phone Number [facility] DEPARTMENT OF LABORATORY MEDICINE [address] [place] [address] * (ABNORMAL) Sedimentation rate (ESR) (04/15/2024 12:20 PM EDT) Sedimentation Rate (ESR) 24(H) 0 - 20 mm/hr 04/15/2024 3:41 PM EDT [facility] DEPARTMENT OF LABORATORY MEDICINE Blood Venipuncture / Unknown 04/15/2024 12:20 PM EDT 04/15/2024 2:54 PM EDT us Provider Not In System LAB BLOOD ORDERABLES Evelin l Result Performing Organization Address [facility] Co de Phone Number [facility] DEPARTMENT OF LABORATORY MEDICINE [address] [place] [address] * (ABNORMAL) C-reactive protein (CRP) (03/17/2024 10:36 AM EDT) CRP, High Sensitivity 6.3(H) See comment mg/L 03/17/2024 11:47 AM EDT [facility] DEPARTMENT OF LABORATORY MEDICINE Comment: [...] ORDERABLES Evelin l Result Performing Organization Address [facility]/ZIP Co de Phone Number [facility] DEPARTMENT OF LABORATORY MEDICINE [address] [place] [address] * (ABNORMAL) Sedimentation rate (ESR) (03/17/2024 10:36 AM EDT) Sedimentation Rate (ESR) 23(H) 0 - 20 mm/hr 03/17/2024 11:46 AM EDT [facility] DEPARTMENT OF LABORATORY MEDICINE Blood Venipuncture / Unknown 03/17/2024 10:36 AM EDT 03/17/2024 11:15 AM EDT Provider Not In System LAB BLOOD ORDERABLES Evelin l Result Performing Organization Address [facility] de Phone Number [facility] DEPARTMENT OF LABORATORY MEDICINE [address] [place] [address] * (ABNORMAL) C-reactive protein (CRP) (02/20/2024 3:41 PM EDT) CRP, High Sensitivity 8.9(H) See comment mg/L 02/20/2024 4:36 PM EDT [facility] DEPARTMENT OF LABORATORY MEDICINE Comment: [...] ORDERABLES Evelin l Result Performing Organization Address City/[facility] Co de Phone Number [facility] DEPARTMENT OF LABORATORY MEDICINE [address] [place] [address] * Sedimentation rate (ESR) (02/20/2024 3:41 PM EDT) Sedimentation Rate (ESR) 18 0 - 20 mm/hr 02/20/2024 7:04 PM EDT [facility] DEPARTMENT OF LABORATORY MEDICINE Blood Venipuncture / Unknown 02/20/2024 3:41 PM EDT 02/20/2024 4:04 PM EDT us Provider Not In System LAB BLOOD ORDERABLES Evelin l Result Performing Organization Address [facility] de Phone Number [facility] DEPARTMENT OF LABORATORY MEDICINE [address] [place] [address] * (ABNORMAL) C-reactive protein (CRP) (12/09/2023 1:52 PM EDT) CRP, High Sensitivity 4.4(H) See comment mg/L 12/09/2023 4:44 PM EDT [facility] DEPARTMENT OF LABORATORY MEDICINE Comment: [...] ORDERABLES Evelin l Result Performing Organization Address [facility] Co de Phone Number [facility] DEPARTMENT OF LABORATORY MEDICINE [address] [place] [address] * Sedimentation rate (ESR) (12/09/2023 1:52 PM EDT) Sedimentation Rate (ESR) 10 0 - 20 mm/hr 12/09/2023 5:08 PM EDT [facility] DEPARTMENT OF LABORATORY MEDICINE Blood Venipuncture / Unknown 12/09/2023 1:52 PM EDT 12/09/2023 4:20 PM EDT us Provider Not In System LAB BLOOD ORDERABLES Evelin l Result [facility] DEPARTMENT OF LABORATORY MEDICINE [address] [place] [address], [facility] [phone] documented in this encounter Visit Diagnoses 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
--- OUTSIDE RECORDS SUMMARY | 2024-11-04 12:58 | XMS_ITS | Encounter Summary ---
Author Organization [facility] Address Unknown Care Team Providers Care Tube Depatcher Name Role Phone Sal Jose MD Primary Care Provider [phone] Encounter Details Date Type Department Care Team (Late st Contact Info) Description 11/19/2022 Scanned Document Pulmonary Critical [place] [address] [address] External, Provider Social History Tobacco Use Types [...] EDT Follow Up Pulmonary Critical [place] 136 [facility] 302 [place] [address] Ramon Nixon MD 136 [facility] 302 [place] [address] 04/28/2025 1:45 PM EDT Follow Up Stroke 800 [place] [address] Kristine Kelly MD PhD 800 [place] [address] 05/04/2025 1:00 PM EDT Follow Up Cardiovascular Medicine at 175 [facility] 175 [place] [address] Mike Hilario MD 175 [facility] [address] 2 [place] [phone] 07/20/2025 11:40 AM EST Follow Up Epilepsy & Seizures at 800 [facility] 800 [facility] [place], [place] [address] Virgie Mast MD PhD 800 [place] [phone] documented as of this encounter Visit Diagnoses Not on filedocumented in this encounter Care Teams Tube Depatcher Relationship Specialty Start Date End Date Sal Jose MD 1033 [facility] [address] [place] [phone] PCP - General Family Medicine 10/16/23 documented as of this encounter
--- OUTSIDE RECORDS SUMMARY | 2024-11-04 12:58 | XMS_ITS | Encounter Summary ---
Author Organization [facility] Address Unknown Care Team Providers Care Fashion Director Name Role Phone Sal Jose MD Primary Care Provider [phone] Encounter Details Date Type Department Care Team (Late st Contact Info) Description 11/27/2021 Scanned Document Pulmonary Critical [place] [address] [address] External, Provider Social History Tobacco Use Types [...] Follow Up Pulmonary Critical [place] [address] [facility] 302 [place] [address] Ramon Nixon MD 136 [facility] 302 [place] [address] 04/28/2025 1:45 PM EDT Follow Up Stroke 800 [place] [address] Kristine Kelly MD PhD 800 [place] [address] 05/04/2025 1:00 PM EDT Follow Up Cardiovascular Medicine at 175 [facility] 175 [place] [address] Mike Hilario MD 175 [facility] Fl 2 [place] [address] 07/20/2025 11:40 AM EST Follow Up Epilepsy & Seizures at [address] [facility] [address] [facility] Lower [place] [address] Virgie Mast MD PhD 800 [place] [phone] documented as of this encounter Visit Diagnoses Not on filedocumented in this encounter Care Teams Fashion Director Relationship Specialty Start Date End Date Sal Jose MD 1033 [facility] [address] [place] [phone] PCP - General Family Medicine 10/16/23 documented as of this encounter
--- OUTSIDE RECORDS SUMMARY | 2024-11-04 12:58 | XMS_ITS | Encounter Summary ---
Author Organization [facility] Address Unknown Care Team Providers Care Leadite Man Name Role Phone Sal Jose MD Primary Care Provider [phone] Encounter Details Date Type Department Care Team (Late st Contact Info) Description 11/19/2022 Scanned Document Pulmonary Critical [place] [address] [address] External, Provider Social History Tobacco Use Types [...] 12:00 PM EDT Follow Up Pulmonary Critical [place] 136 [facility] 302 [place] [address] Ramon Nixon MD 136 [facility] 302 [place] [address] 04/28/2025 1:45 PM EDT Follow Up Stroke 800 [place] [address] Kristine Kelly MD PhD 800 [place] [address] 05/04/2025 1:00 PM EDT Follow Up Cardiovascular Medicine at 175 [facility] 175 [place] [address] Mike Hilario MD 175 [facility] Fl 2 [place] [address] 07/20/2025 11:40 AM EST Follow Up Epilepsy & Seizures at 800 [facility] 800 [facility] Lower [place], [place] [address] Virgie Mast MD PhD 800 [place] [phone] documented as of this encounter Visit Diagnoses Not on filedocumented in this encounter Care Teams Leadite Man Relationship Specialty Start Date End Date Sal Jose MD 1033 [facility] [address] [place] [phone] PCP - General Family Medicine 10/16/23 documented as of this encounter
--- OUTSIDE RECORDS SUMMARY | 2024-11-04 12:58 | XMS_ITS | Encounter Summary ---
Author Organization [facility] Address [address] [place] [address] Care Team Providers Care Call Center Dispatcher Name Role Phone Sal Jose MD Primary Care Provider [phone] Encounter Details Date Type Department Care Team (Late Contact Info) Description 08/09/2014 Abstract [facility] at 175 [facility] 175 [place] [address] Emerita Beth MD 35 [place] [phone] Social History Tobacco Use Types Packs/Day Years [...] [place] 136 [facility] 302 [place], [place] [address] Ramon Nixon MD 136 [facility] 302 [place] [address] 04/28/2025 1:45 PM EDT Follow Up [facility] Stroke 800 [place] [address] Kristine Kelly MD PhD 800 [place] [address] 05/04/2025 1:00 PM EDT Follow Up Cardiovascular Medicine at 175 [facility] 175 [facility], [place] [address] Mike Hilario MD 175 [facility] 2 [place] [address] 07/20/2025 11:40 AM EST Follow Up Epilepsy & Seizures at 800 [facility] 800 [facility] Lower [place], [place] [address] Virgie Mast MD PhD 800 [place] [address] documented as of this encounter Visit Diagnoses Not on filedocumented in this encounter Care Teams Call Center Dispatcher Relationship Specialty Start Date End Date Sal Jose MD [address] [phone] PCP - General Family Medicine 10/16/23 documented as of this encounter
--- OUTSIDE RECORDS SUMMARY | 2024-11-04 12:58 | XMS_ITS | Clinical Summary ---
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 Encounters Date Type Department Care Team Description 10/28/2024 Telephone [facility] OPTOMETRY [address] [place] [address] Sahara Barone RMA 10/21/2024 11:00 AM EDT Office Visit [facility] DENTAL [address] [place] [address] Jamison Briscoe LLD 10/14/2024 11:00 AM EDT Office Visit [facility] DENTAL [address] [place] [address] Jamison Briscoe LLD 08/26/2024 9:40 AM EST Office Visit [facility] DENTAL [address] [place] [address] Hanane Mason Stage 2 grade B generalized periodontitis per AAP/EFP 2017 classification (Primary Dx); Encounter for dental examination; Dental caries 08/24/2024 Patient Outreach [facility] Case Management [address] [place] [address] Cordell Saba 08/16/2024 Patient Outreach [facility] MEDICAL [address] [place] [address] Cordell Saba 08/16/2024 Patient Outreach [facility] MEDICAL [address] [place] [address] Cordell Saba 08/13/2024 Patient Outreach [facility] MEDICAL [address] [place] [address] Cordell Saba 08/13/2024 Patient Outreach [facility] MEDICAL [address] [place] [address] Cordell Saba 08/13/2024 Patient Outreach [facility] MEDICAL [address] [place] [address] Cordell Saba 08/12/2024 9:30 AM EST Office Visit [facility] OPTOMETRY [address] [place] [address] Cherelle Vidal, OD Visual field defect (Primary Dx); Glaucoma suspect of both eyes 08/12/2024 Patient Outreach [facility] MEDICAL [address] [place] [address] Cordell Saba 08/12/2024 Travel from Last 3 Months Family History Medical [...] Description 11/09/2024 12:00 PM EDT Office Visit [facility] DENTAL [address] [place] [address] Jamison Briscoe LLD 9 [place] [address] 11/11/2024 9:30 AM EDT Office Visit [facility] DENTAL [address] [place] [address] Jamison Briscoe LLD 9 [place] [address] 02/03/2025 10:00 AM EDT Office Visit [facility] OPTOMETRY [address] [place] [address] Cherelle Vidal, OD [address] [place] [address] 02/24/2025 12:00 PM EDT Office Visit [facility] DENTAL [address] [place] [address] Hanane Mason Health Maintenance Due Date Last [...] BOTH EYES Routine 08/12/2024 Visual field defect from Last 3 Months [...] from Last 3 Months Insurance 1-D Jerry Chapman. [facility] GARCIA [id number] [facility] HMO [facility] FULL 1-D Jerry Andrew [place] [id number] HSN FULL [facility] HMO 1-D [place] [address] DENTAL - HSN FULL (MEDICAID) Care Teams Feather Separator Relationship Specialty Start Date End Date Cordell Saba Health Navigator 08/12/24 CASSIDY DE [place] NPI ID: [id number] Address: [address] [place] [id number] Primary Care Physician [id number] Primary Care Provider 08/12/18
--- OUTSIDE RECORDS SUMMARY | 2024-11-04 12:58 | XMS_ITS | Encounter Summary ---
Author Organization [facility] Address Unknown Care Team Providers Care Obstetrician Gynecologist Name Role Phone Sal Jose MD Primary Care Provider Encounter Details Date Type Department Care Team (Late st Contact Info) Description 11/27/2021 Scanned Document Pulmonary Critical [place] 136 [facility] 302 [place] [address] Gaviota Rivera, OT Social History Tobacco Use [...] EDT Follow Up Pulmonary Critical [place] 136 [facility] 302 [place] [address] Ramon Nixon MD 136 [facility] 302 [place] [address] 04/28/2025 1:45 PM EDT Follow Up Stroke 800 [place] [address] Kristine Kelly MD PhD 800 [place] [address] 05/04/2025 1:00 PM EDT Follow Up Cardiovascular Medicine at 175 [facility] 175 [facility], [place] [address] Mike Hilario MD 175 [facility] Fl 2 [place] [address] 07/20/2025 11:40 AM EST Follow Up Epilepsy & Seizures at 800 [facility] 800 [facility] Lower [place], [place] [address] Virgie Mast MD PhD 800 [place] [phone] documented as of this encounter Visit Diagnoses Not on filedocumented in this encounter Care Teams Obstetrician Gynecologist Relationship Specialty Start Date End Date Sal Jose MD [address] [phone] PCP - General Family Medicine 10/16/23 documented as of this encounter
--- OUTSIDE RECORDS SUMMARY | 2024-11-04 12:58 | XMS_ITS | Encounter Summary ---
Author Organization [facility] Address Unknown Care Team Providers Care Cafeteria Server Name Role Phone Sal Jose MD Primary Care Provider [phone] Encounter Details Date Type Department Care Team (Late st Contact Info) Description 08/13/2023 Scanned Document Pulmonary Critical [place] [address] [address] External, Provider Social History Tobacco Use Types [...] EDT Follow Up Pulmonary Critical [place] 136 [facility] 302 [place] [address] Ramon Nixon MD 136 [facility] 302 [place] [address] 04/28/2025 1:45 PM EDT Follow Up Stroke [address] [place] [address] Kristine Kelly MD PhD 800 [place] [address] 05/04/2025 1:00 PM EDT Follow Up Cardiovascular Medicine at 175 [facility] 175 [place] [address] Mike Hilario MD 175 [facility] [address] 2 [place] [address] 07/20/2025 11:40 AM EST Follow Up Epilepsy & Seizures at 800 [facility] 800 [facility] Lower [place], [place] [address] Virgie Mast MD PhD 800 [place] [phone] documented as of this encounter Visit Diagnoses Not on filedocumented in this encounter Care Teams Cafeteria Server Relationship Specialty Start Date End Date Sal Jose MD 1033 [facility] [address] [place] [phone] PCP - General Family Medicine 10/16/23 documented as of this encounter
--- OUTSIDE RECORDS SUMMARY | 2024-11-04 12:58 | XMS_ITS | Patient Health Record ---
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 Progressiv e systemic sclerosis (728315379) Problem Dysphagia, pharyngoesophageal phase (R13.14) Active confirmed Pharyngeal dysphagia ([id number] 5) Problem Dysphonia (R49.0) Active confirmed Dysp honia (93280023) Problem Other diseases of larynx (J38.7) Active confirmed Disease of larynx (70678453) PLAN OF TREATMENT No Information Insurance Providers Payer Name Payer Address Payer Phone Subscriber Number Group Number Insured Name Patient Relationship to Insured Coverage Start Date Coverage [place] [address] [place] [address] [id number] Medicare Bernadette Zapata Self - patient is the insured 9
--- OUTSIDE RECORDS SUMMARY | 2024-11-04 12:58 | XMS_ITS | Encounter Summary ---
Author Organization [facility] Address Unknown Care Team Providers Care Land Management Forester Name Role Phone Sal Jose MD Primary Care Provider [phone] Encounter Details Date Type Department Care Team (Late st Contact Info) Description 08/13/2023 Scanned Document Pulmonary Critical [place] [address] [address] External, Provider Social History Tobacco Use Types [...] EDT Follow Up Pulmonary Critical [place] 136 [facility] 302 [place] [address] Ramon Nixon MD 136 [facility] 302 [place] [address] 04/28/2025 1:45 PM EDT Follow Up Stroke 800 [place] [address] Kristine Kelly MD PhD 800 [place] [address] 05/04/2025 1:00 PM EDT Follow Up Cardiovascular Medicine at 175 [facility] 175 [place] [address] Mike Hilario MD 175 [facility] [address] 2 [place] [address] 07/20/2025 11:40 AM EST Follow Up Epilepsy & Seizures at 800 [facility] 800 [facility] Lower [place], [place] [address] Virgie Mast MD PhD [address] [place] [phone] documented as of this encounter Visit Diagnoses Not on filedocumented in this encounter Care Teams Land Management Forester Relationship Specialty Start Date End Date Sal Jose MD 1033 [facility] [address] [place] [phone] PCP - General Family Medicine 10/16/23 documented as of this encounter
== END 2024-11-04 17:05 | disposition home or self-care (01) ==
LOC: HO.HMCFM 11:41
PROVIDERS: PCP Family Medicine; Visit Provider Family Medicine
DX: I10 Essential (primary) hypertension (principal); E87.6 Hypokalemia; Z86.73 Personal history of transient ischemic attack (TIA), and cerebral infarction without residual deficits; R94.31 Abnormal electrocardiogram [ECG] [EKG]

== ENCOUNTER → 2024-11-04 11:41 | Outpatient (BNVA) | payer MEDICARE, MEDICAID, SELFPAY | PROVIDERS: PCP Family Medicine; Visit Provider Family Medicine ==

== ENCOUNTER 2024-11-11 11:42 | Outpatient (AMB) | payer MEDICARE, MEDICAID, SELFPAY ==
--- NOTE | 2024-11-11 12:17 | A.OFFPC_ITS ---
Vital Signs 11/11/24 12:24 Height 5 ft 8 in Weight 225 lb 2 oz BMI 34.2 BP 126/61 Blood Pressure Location Lt brachial Position Sitting Respiration 14 Pulse 68 Pulse Source Pulse Oximeter Temp 98.3 F Temp Source Oral Pulse Oximetry (%) 99 Oxygen Delivery Method Room Air Intake Visit Reasons: Dr Dahiana BULLOCK HTN with med change/chronic dz mgmt-record Intake Note: patient is schedule for htn and medication follow up Drug And Alcohol Treatment Specialist Required: No Allergies Penicillins Allergy (Severe, Verified 11/11/24 12:18) Anaphylaxis morphine Adverse Reaction (Intermediate, Verified 11/11/24 12:18) Confusion Medication List - Last Reconciled 11/11/24 by Jayant Walker MD albuterol sulfate 2.5 mg continuous nebulization albuterol sulfate 90 mcg/actuation inhalation amlodipine-benazepril 5-10 mg 1 cap PO DAILY atorvastatin 80 mg PO DAILY budesonide 0.5 mg inhalation budesonide-formoterol 160-4.5 mcg/actuation inhalation cephalexin 500 mg PO Q12H 10 days clopidogrel 75 mg PO DAILY cyanocobalamin (vitamin B-12) 1,000 mcg IM fenofibrate nanocrystallized mg PO DAILY gabapentin 400 mg PO 3XD levetiracetam mg PO levothyroxine 200 mcg PO DAILY levothyroxine 50 mcg PO DAILY lidocaine 5% topical metoprolol succinate ER 25 mg PO BID 90 days montelukast 10 mg PO DAILY mycophenolate mofetil mg PO silver sulfadiazine 1% (Silvadene) 1 appl topical BID 10 days syringe with needle, safety (BD Integra Syringe) As directed tramadol 50 mg PO zolpidem 10 mg PO Tobacco use date assessed: 10/07/24 Dental Screening Dental Screen Date: 10/07/[address] Dahiana BULLOCK HTN with med change/chronic dz mgmt-record HPI Details 63 y/o female presents to f/u hypertensi on. Hx of CVA and systolic BP at home have been running 140-160. BP today 126/61, 68p. She is on metoprolol 25mg b.i.d, amlodipine 5-10mg daily. Pt notes BP at home are still in the 140s. She notes she does have a wrist cuff. COUNT INCLUDES [facility] Family History (Updated 10/07/24 @ 15:41 by DAYANA Sigala) Maternal Grandmother FH: mental illness Brother FH: mental illness Sister FH: mental illness Father FH: mental illness Social History (Updated 10/07/24 @ 15:42 by DAYANA Sigala) Housing: Apartment Patient Tobacco Use Status: Never used Tobacco e-Cigarette/Vaping Use: Never Used Second Hand Smoke Exposure: No Substance Use Type: Other service: No Current occupational status: retired Current occupational exposures/hazards: No Cognitive needs: Yes (aphasia ) Hearing needs: No Vision needs: Yes Questionnaire Thrive Questionnaire Date Thrive assessed: 10/07/24 I am a: Patient What is your living situation today?: I have a steady place to live Within the past 12 months, did the food you bought not last and you didn't have the money to get more?: Sometimes True Within the past 12 months, did you worry whether your food would run out before you got money to buy more?: Sometimes True Do you have trouble paying for medicines?: Yes Do you have trouble getting transportation to medical appointments?: Yes Do you have trouble paying your heating and electricity bill?: No Do you have trouble taking care of your child, family member or friend?: No Do you have trouble with day-to-day activities such as bathing, preparing meals, shopping, managing finances, etc.?: Yes Are you currently unemployed and looking for a job?: No Are you interested in more education?: Yes THRIVE Score: 3 FLEX-7 AMB Questionnaire FLEX-7 Date FLEX - 7 assessed: 10/07/24 Source: Developed by Drs. Venkatesh Acuna, Kay Garcia, Kings Rooney and colleagues, with an educational haim from [employer]. Review of Systems Const Denies chills, Denies fatigue, Denies fever(s), Denies headache(s) and Denies weakness ENT Denies dizziness and Denies headache(s) Card Denies chest pain, Denies lightheadedness, Denies dyspnea and Denies other (Palpitations) Resp Denies cough, Denies dyspnea, Denies wheezing and Denies other ( shortness of breath) Musc Denies numbness and Denies tingling Neuro Denies dizziness, Denies headache(s), Denies numbness, Denies tingling, Denies paresthesias and Denies weakness Psych Denies anxiety and Denies depression Endo Denies fatigue Aller/Immun Denies wheezing Physical exam (Primary Care) Vital Signs: Last Vital Signs Temp 98.3 F 11/11/24 12:24 Pulse 68 11/11/24 12:24 Resp 14 11/11/24 12:24 BP 126/61 11/11/24 12:24 Pulse Ox 99 11/11/24 12:24 Oxygen Delivery Method Room Air 11/11/24 12:24 BMI result Body Mass Index 34.2 Tobacco/Smoking Status: Tobacco use Status Tobacco use date assessed 10/07/24 11/11/24 12:22 Patient Tobacco Use Status Never used Tobacco 11/11/24 12:22 e-Cigarette/Vaping Use Never Used 11/11/24 12:22 Thrive Assessment: Date of Thrive Assessment Date Thrive assessed 10/07/24 11/11/24 12:22 Const General: no acute distress and well developed Nutritional Appearance: well nourished Orientation/consciousness: patient oriented x3 HENMT Head: Yes normocephalic and Yes atraumatic Eyes General: appearance normal, both eyes and all related structures Pupils: Equal, round and reactive pupils present EOM: EOMs intact bilaterally Resp Effort & Inspection: normal respiratory effort Auscultation: clear to auscultation bilaterally Cardio Rate: regular rate Rhythm: regular rhythm Heart sounds: S1 normal heart sound present, S2 normal heart sound present, no gallops, no murmurs and no rubs Neuro General: patient oriented x3 and gait normal Cranial nerves: Yes Equal, round and reactive pupils present Psych Affect: normal affect Coding Level of Care Code Est Pt Level 3 (21988) Diagnoses Hypertension, unspecified type I10 Hypertension type: unspecified History of CVA (cerebrovascular accident) Z86.73 Assessment & Plan Assessment & Plan (1) Hypertension: Code(s): I10 - Essential (primary) hypertension Category: Medical Qualifiers: Hypertension type: unspecified Qualified Code(s): I10 - Essential (primary) hypertension Plan: Blood?pressure?is?well?controlled?on?amlodipine?benazepril?as?well?as?metoprolol 50?mg?daily. Goal?is?less?than?130/80. She?uses?a?wrist?blood?pressure?monitor?at?home?and?I?advised?she?get?an arm?cuff?monitor. She?has?been?referred?to?Cardiology Gave?her?phone?number (2) History of CVA (cerebrovascular accident): Code(s): Z86.73 - Personal history of transient ischemic attack (TIA), and cerebral infarction without residual deficits Category: Medical Plan: Stable Keep?blood?pressure?is?controlled Medications: New silver sulfadiazine 1% (Silvadene) apply a 1.5 mm thickness 1 appl topical BID 50 grams 0RF 10 days cephalexin 500 mg PO Q12H 20 caps 0RF 10 days
[2024-11-11 12:24] VITALS: BP 126/61; PULSE 68; RESP 14; TEMP 36.8; O2SAT 99; BMI 34.2
--- OUTSIDE RECORDS SUMMARY | 2024-11-11 14:16 | XMS_ITS | Encounter Summary ---
Author Organization [facility] and [facility] Address [address] [place] [id number] Care Team Providers Care Meter Inspector Name Role Phone Sal Jose MD Primary Care Provider [phone] Encounter Details Date Type Department Care Team (Late st Contact Info) Description 10/28/2023 Scanned Document CARE CENTER SCHEDULING [address] [place], [place] [id number] Provider, Historical . [phone] (Fax) Social History Tobacco Use Types Packs/Day [...] EDT Follow Up [place]monary Critical [place] 136 [facility] [address] [place] [address] Ramon Nixon MD [address] [facility] [address] [place] [phone] 04/28/2025 1:45 PM EDT Follow Up Stroke 800 [facility] [place] [address] Kristine Kelly MD PhD 800 [place] [address] 05/04/2025 1:00 PM EDT Follow Up Cardiovascular Medicine at 175 [facility] 175 [facility] [place] [address] Mike Hilario MD [address] [facility] [address] [address] 2 [place] [phone] 07/20/2025 11:40 AM EST Follow Up Epilepsy & Seizures at 800 [facility] 800 [facility] [place] [address] Virgie Mast MD PhD 800 [facility] [place], [place] [address] documented as of this encounter Procedures Procedure [...] on filedocumented in this encounter Care Teams Meter Inspector Relationship Specialty Start Date End Date Sal Jose MD 1033 [facility] [address] [place] [phone] PCP - General Family Medicine 10/16/23 documented as of this encounter
--- OUTSIDE RECORDS SUMMARY | 2024-11-11 14:16 | XMS_ITS | Encounter Summary ---
Author Organization [facility] and [facility] Address [address] [place] [address] Care Team Providers Care Metal Expediter Name Role Phone Sal Jose MD Primary Care Provider Encounter Details Date Type Department Care Team (Late st Contact Info) Description 08/13/2023 Scanned Document EXTERNAL REFERRAL SOURCE 20 [place] [address] External, Provider Social History Tobacco Use Types [...] EDT Follow Up Pulmonary Critical [place] 136 [facility] 302 [place] [address] Ramon Nixon MD 136 [facility] 302 [place] [address] 04/28/2025 1:45 PM EDT Follow Up Stroke 800 [place] [address] Kristine Kelly MD PhD 800 [place] [phone] 05/04/2025 1:00 PM EDT Follow Up Cardiovascular Medicine at 175 [facility] 175 [place], [place] [address] Mike Hilario MD 175 [facility] 2 [place] [phone] 07/20/2025 11:40 AM EST Follow Up Epilepsy & Seizures at [address] [facility] [address] [facility] Lower Level [place], [place] [address] Virgie Mast MD PhD [address] [place] [phone] documented as of this encounter Visit Diagnoses Not on filedocumented in this encounter Care Teams Metal Expediter Relationship Specialty Start Date End Date Sal Jose MD [address] [place] [phone] PCP - General Family Medicine 10/16/23 documented as of this encounter
--- OUTSIDE RECORDS SUMMARY | 2024-11-11 14:16 | XMS_ITS | Encounter Summary ---
Author Organization [facility] and [facility] Address [address] [place] [phone] Care Team Providers Care Mine Expert Name Role Phone Sal Jose MD Primary Care Provider [phone] Encounter Details Date Type Department Care Team (Late st Contact Info) Description 10/27/2023 Scanned Document CARE CENTER SCHEDULING 25 [place], [place] [address] Provider, Historical . [phone] (Fax) Social History Tobacco Use Types Packs/Day [...] 136 [facility] [address] [place] [address] Ramon Nixon MD 136 [facility] [address] [place] [phone] 04/28/2025 1:45 PM EDT Follow Up Stroke 800 [facility] [place] [address] Kristine Kelly MD PhD 800 [place] [phone] 05/04/2025 1:00 PM EDT Follow Up Cardiovascular Medicine at 175 [facility] 175 [place] [address] Mike Hilario MD 175 [facility] [address] 2 [place] [address] 07/20/2025 11:40 AM EST Follow Up Epilepsy & Seizures at 800 [facility] 800 [facility] [place] [address] Virgie Mast MD PhD 800 [place] [address] documented as of this encounter Visit Diagnoses Not on filedocumented in this encounter Care Teams Mine Expert Relationship Specialty Start Date End Date Sal Jose MD [facility] [address] [phone] PCP - General Family Medicine 10/16/23 documented as of this encounter
--- OUTSIDE RECORDS SUMMARY | 2024-11-11 14:16 | XMS_ITS | Encounter Summary ---
Author Organization [facility] and [facility] Address 20 [place] [address] Care Team Providers Care Assistant Professor Surgical Technology Name Role Phone Sal Jose MD Primary Care Provider Encounter Details Date Type Department Care Team (Late st Contact Info) Description 08/14/2023 Transcribed Orders EXTERNAL REFERRAL SOURCE 20 [place] [address] Referral, Self Social History Tobacco Use Types [...] EDT Follow Up Pulmonary Critical [place] 136 [facility] 302 [place] [address] Ramon Nixon MD 136 [facility] 302 [place] [address] 04/28/2025 1:45 PM EDT Follow Up Stroke 800 [place] [address] Kristine Kelly MD PhD 800 [place] [address] 05/04/2025 1:00 PM EDT Follow Up Cardiovascular Medicine at 175 [facility] 175 [place], [place] [address] Mike Hilario MD 175 [facility] 2 [place] [phone] 07/20/2025 11:40 AM EST Follow Up Epilepsy & Seizures at [address] [facility] [address] [facility] Lower [place], [place] [address] Virgie Mast MD PhD 800 [place] [phone] documented as of this encounter Visit Diagnoses Not on filedocumented in this encounter Care Teams Assistant Professor Surgical Technology Relationship Specialty Start Date End Date Sal Jose MD [address] [place] [phone] PCP - General Family Medicine 10/16/23 documented as of this encounter
--- OUTSIDE RECORDS SUMMARY | 2024-11-11 14:16 | XMS_ITS | Encounter Summary ---
Author Organization [facility] and [facility] Address [address] [place] [phone] Care Team Providers Care Spooler Operator Automatic Name Role Phone Sal Jose MD Primary Care Provider [phone] Encounter Details Date Type Department Care Team (Late st Contact Info) Description 10/17/2023 Scanned Document [facility] 800 [place] [address] Kristine Kelly MD PhD 800 [place] [phone] Social History Tobacco Use Types Packs/Day Years [...] EDT Follow Up Pulmonary Critical [place] 136 [facility] 302 [place], [place] [address] Ramon Nixon MD 136 [facility] 302 [place] [address] 04/28/2025 1:45 PM EDT Follow Up [facility] Stroke 800 [place] [address] Kristine Kelly MD PhD [address] [place] [address] 05/04/2025 1:00 PM EDT Follow Up Cardiovascular Medicine at 175 [facility] 175 [place], [place] [address] Mike Hilario MD 175 [facility] 2 [place] [address] 07/20/2025 11:40 AM EST Follow Up Epilepsy & Seizures at 800 [facility] 800 [place] [address] Virgie Mast MD PhD [address] [place] [address] documented as of this encounter Visit Diagnoses Not on filedocumented in this encounter Care Teams Spooler Operator Automatic Relationship Specialty Start Date End Date Sal Jose MD [facility] [address] [phone] PCP - General Family Medicine 10/16/23 documented as of this encounter
--- OUTSIDE RECORDS SUMMARY | 2024-11-11 14:16 | XMS_ITS | Encounter Summary ---
Author Organization [facility] Address Unknown Care Team Providers Care Developer Advocate Name Role Phone Sal Jose MD Primary Care Provider [phone] Encounter Details Date Type Department Care Team (Late st Contact Info) Description 08/27/2023 Scanned Document Pulmonary Critical [place] [address] [address] External, Provider Social History Tobacco Use Types [...] 12:00 PM EDT Follow Up Pulmonary Critical [place] 136 [facility] 302 [place] [address] Ramon Nixon MD 136 [facility] 302 [place] [address] 04/28/2025 1:45 PM EDT Follow Up Stroke 800 [place] [address] Kristine Kelly MD PhD 800 [place] [phone] 05/04/2025 1:00 PM EDT Follow Up Cardiovascular Medicine at 175 [facility] 175 [facility] [place] [address] Mike Hilario MD 175 [facility] [address] 2 [place] [address] 07/20/2025 11:40 AM EST Follow Up Epilepsy & Seizures at 800 [facility] 800 [facility] Lower [place], [place] [address] Virgie Mast MD PhD [address] [place] [phone] documented as of this encounter Procedures Procedure Name Priority Date/Time Associated Diagnosis Comments CARDIAC ECHO RESULT SCAN Routine 08/27/2023 documented in this encounter Results * Cardiac Echo Result Scan (08/27/2023) Provider External CV CARDIAC REPORT (CVR) Final Result documented in this encounter Visit Diagnoses Not on filedocumented in this encounter Care Teams Developer Advocate Relationship Specialty Start Date End Date Sal Jose MD 1033 [facility] [address] [place] [phone] PCP - General Family Medicine 10/16/23 documented as of this encounter
--- OUTSIDE RECORDS SUMMARY | 2024-11-11 14:17 | XMS_ITS | Clinical Summary ---
Author Organization [facility] Address 20 [place] [address] Phone Care Team Providers Care Supervisor Pigment Making Name Role Phone Sal Jose MD Primary Care Provider [phone] Allergies Active Allergy Reactions Criticality Noted Date [...] 4:00 PM EST Follow Up Pulmonary Critical [place] 136 [facility] 302 [place] [address] Ramon Nixon MD ILD (interstitial lung disease) (HC Code) (HC CODE) (HC Code) (Primary Dx); Mild persistent asthma with acute exacerbation 08/31/2024 Scanned Document Pulmonary Critical [place] [address] [facility] 302 [place] [address] Ramon Nixon MD 08/31/2024 Transcribed Orders [facility] Laboratory Specimens [address] [place] [address] System, Provider Not In CRST syndrome (HC Code) (HC CODE) (HC Code) (Primary Dx) 08/25/2024 Telephone [facility] [place] 46 [facility], [address] [place] [address] Nain Cat MD Appointment (Missed Study ) from Last 3 Months Immunizations Name [...] EDT Follow Up Pulmonary Critical [place] 136 [facility] 302 [place] [address] Ramon Nixon MD 136 [facility] 302 [place] [address] 04/28/2025 1:45 PM EDT Follow Up Stroke 800 [place] [address] Kristine Kelly MD PhD 800 [place] [address] 05/04/2025 1:00 PM EDT Follow Up Cardiovascular Medicine at 175 [facility] 175 [place] [address] Mike Hilario MD 175 [facility] 2 [place] [phone] 07/20/2025 11:40 AM EST Follow Up Epilepsy & Seizures at 800 [facility] 800 [place] [address] Virgie Mast MD PhD 800 [place] [address] Health Maintenance Due Date Last Done Comments HIV screening 1974 Hepatitis C screening 11/22/1979 Lipid disorder screening 2001 Colon cancer screening, Colonoscopy 2006 Cervical cancer screening 02/25/2019 02/25/2014 RSV Immunization (1 - Risk 60-74 years 1-dose series) 2021 Pneumococcal Vaccine (50+ years) (3 of 3 - PPSV23, PCV20 or PCV21) 04/16/2023 04/16/2018, 06/09/2015 Covid-19 vaccine series (2 [...] (08/31/2024 4:23 PM EST) FEV1 [facility] FVC [facility] FEV1/FVC [facility] TLC [facility] PE max %Post Pred [facility] FEF50 [facility] FIF50 [facility] 08/31/2024 4:23 PM EST Impressions [facility] - 08/31/2024 4:23 PM EST Mild restrictive pattern. Improvement after bronchodilator could indicate airway hyper-reactivity. Narrative [facility] - 08/31/2024 4:23 PM EST Spirometry: FVC is moderately reduced. . FEV1 is mildly reduced. FEV1/FVC ratio is normal. The significant improvement after bronchodilator may be effort related. Flow Volume Loop: Normal contour. Lung Volumes: TLC is mildly reduced. RV is normal. Diffusion Capacity: Mildly reduced. Ramon Nixon MD POINT OF CARE TEST ORDERABLES Ed ited Result - Final [facility] [place], [place], [facility] * Pulmonary Function Test ([facility]) (08/31/2024 4:13 PM EST) Ramon Nixon MD PFT ORDERABLES Final Result * Comprehensive metabolic panel (07/23/2024 1:13 PM EST) Sodium 144 136 - 144 mmol/L 07/23/2024 3:09 PM [facility] DEPARTMENT OF LABORATORY MEDICINE Potassium 4.2 3.3 - 5.3 mmol/L 07/23/2024 3:09 PM [facility] DEPARTMENT OF LABORATORY MEDICINE Chloride 105 98 - 107 mmol/L 07/23/2024 3:09 PM [facility] DEPARTMENT OF LABORATORY MEDICINE CO2 26 20 - 30 mmol/L 07/23/2024 3:09 PM [facility] DEPARTMENT OF LABORATORY MEDICINE Anion Gap 13 7 - 17 07/23/2024 3:09 PM [facility] DEPARTMENT OF LABORATORY MEDICINE Glucose 89 70 - 100 mg/dL 07/23/2024 3:09 PM [facility] DEPARTMENT OF LABORATORY MEDICINE BUN 13 8 - 23 mg/dL 07/23/2024 3:09 PM [facility] DEPARTMENT OF LABORATORY MEDICINE Creatinine 0.72 0.40 - 1.30 mg/dL 07/23/2024 3:09 PM [facility] DEPARTMENT OF LABORATORY MEDICINE Calcium 9.7 8.8 - 10.2 mg/dL 07/23/2024 3:09 PM [facility] DEPARTMENT OF LABORATORY MEDICINE BUN/Creatinine Ratio 18.1 8.0 - 23.0 07/23/2024 3:09 PM [facility] DEPARTMENT OF LABORATORY MEDICINE Total Protein 6.7 5.9 - 8.3 g/dL 024 3:09 PM [facility] DEPARTMENT OF LABORATORY MEDICINE Comment:As of 2023, e reference interval for Total Protein has been changed from (6.6 to 8.7 g/dL) to (5.9 to 8.3 g/dL). Albumin 4.3 3.6 - 5.1 g/dL 07/23/2024 3:09 PM [facility] DEPARTMENT OF LABORATORY MEDICINE Comment:As of 2023, e reference interval for Albumin has been changed from (3.6 to 4.9 g/dL) to (3.6 to 5.1 g/dL). Total Bilirubin 0.6 <=1.2 mg/dL 07/23/20 24 3:09 PM [facility] DEPARTMENT OF LABORATORY MEDICINE Alkaline Phosphatase 113 9 - 122 U/L 07/23/2024 3:09 PM [facility] DEPARTMENT OF LABORATORY MEDICINE Alanine Aminotransferase (ALT) 27 10 - 35 U/L 07/23/2024 3:09 PM [facility] DEPARTMENT OF LABORATORY MEDICINE Comment:Calcium dobesilate c an cause artificially low ALT results at therapeutic concentrations Aspartate Aminotransferase (AST) 23 10 - 35 U/L 07/23/2024 3:09 PM [facility] DEPARTMENT OF LABORATORY MEDICINE Globulin 2.4 2.0 - 3.9 g/dL 07/23/2024 3:09 PM [facility] DEPARTMENT OF LABORATORY MEDICINE Comment:As of 2023, e reference interval for Globulin has been changed from (2.3 to 3.5 g/dL) to (2.0 to 3.9 g/dL). A/G Ratio 1.8 1.0 - 2.2 07/23/2024 3:09 PM [facility] DEPARTMENT OF LABORATORY MEDICINE AST/ALT Ratio 0.9 Reference Range Not Established 07/23/2024 3:09 PM [facility] DEPARTMENT OF LABORATORY MEDICINE eGFR (Creatinine) >60 >=60 mL/min/1.73m2 07/23/2024 3:09 PM EST [facility] DEPARTMENT OF LABORATORY MEDICINE Comment: [facility] utilizes CKD-EPI Creatinine 2020 to report eGFR. Values < 60 mL/min/1.73 m2 may indicate CKD if present for more than three months AND creatinine is at steady state. The eGFR provides a rough estimate of kidney function. For further guidance, please refer to the CKD: Adult Clinical Account Executive Signature pathway. Creatinine Delta 0.01 See Comment 3:09 PM [facility] DEPARTMENT OF LABORATORY MEDICINE Comment: [...] System LAB BLOOD ORDERABLES Evelin smith Result [facility] DEPARTMENT OF LABORATORY MEDICINE [address] [place] [address] from Last 3 Months or Most Recently Relevant to Health Maintenance [place] [id number] [facility] MGD 1-[place] [address] [facility] [id number] [facility] 1-[place] [address] [facility] [address] [id number] [facility] Care Teams Supervisor Pigment Making Relationship Specialty Start Date End Date Sal Jose MD 1033 [facility] [place] [address] [place] [address] PCP - General Family Medicine 10/16/23
--- OUTSIDE RECORDS SUMMARY | 2024-11-11 14:17 | XMS_ITS | Encounter Summary ---
Author Organization [facility] Address Unknown Care Team Providers Care Enamel Pulverizer Name Role Phone Sal Jose MD Primary Care Provider [phone] Reason for Referral * General (Routine) - New Request Specialty Diagnoses / Procedures Referred By Contac t Referred To Contact Pulmonary Disease Procedures Pulmonary Function Test ([facility]) Ramon Nixon MD [address] [place] [address] 302 [place] [address] Phone: tel: fax: Referral ID Status Reason Start Date Expiration Date V isits Requested Visits Authorized [id number] New Request 08/31/2024 08/31/2025 1 1 Encounter Details Date Type Department Care Team (Late st Contact Info) Description 08/31/2024 Scanned Document Pulmonary Critical [place] 136 [facility] 302 [place], [place] [phone] Ramon Nixon MD [address] [place] [address] [address] [place] [address] Social History Tobacco Use Types [...] EDT Follow Up [place]monary Critical [place] 136 [facility] [address] [place] [address] Ramon Nixon MD 136 [facility] 302 [place] [address] 04/28/2025 1:45 PM EDT Follow Up Stroke 800 [place] [address] Kristine Kelly MD PhD 800 [place] [address] 05/04/2025 1:00 PM EDT Follow Up Cardiovascular Medicine at 175 [facility] 175 [place] [address] Mike Hilario MD 175 [facility] 2 [place] [address] 07/20/2025 11:40 AM EST Follow Up Epilepsy & Seizures at 800 [facility] 800 [place] [address] Virgie Mast MD PhD 800 [place] [phone] documented as of this encounter Procedures Procedure [...] documented as of this encounter Care Teams Enamel Pulverizer Relationship Specialty Start Date End Date Sal Jose MD 1033 [facility] [address] [place] [phone] PCP - General Family Medicine 10/16/23 documented as of this encounter
--- OUTSIDE RECORDS SUMMARY | 2024-11-11 14:17 | XMS_ITS | Encounter Summary ---
Author Organization [facility] Address [address] [place] [address] Care Team Providers Care Manager Custom Name Role Phone Sal Jose MD Primary Care Provider [phone] Encounter Details Date Type Department Care Team (Late Contact Info) Description 12/04/2023 Transcribed Orders [facility] Laboratory Specimens 55 [place] [address] System, Provider Not In CREST variant of [...] Follow Up Pulmonary Critical [place] 136 [facility] 302 [place], [place] [address] Ramon Nixon MD 136 [facility] 302 [place] [address] 04/28/2025 1:45 PM EDT Follow Up [facility] Stroke 800 [place], [place] [address] Kristine Kelly MD PhD 800 [place] [address] 05/04/2025 1:00 PM EDT Follow Up Cardiovascular Medicine at 175 [facility] 175 [facility], [place] [address] Mike Hilario MD 175 [facility] Fl 2 [place] [address] 07/20/2025 11:40 AM EST Follow Up Epilepsy & Seizures at 800 [facility] 800 [facility] Lower Level [place], [place] [address] Virgie Mast MD PhD 800 [place] [address] documented as of this encounter Results * Sedimentation rate (ESR) (05/20/2024 12:53 PM EDT) Pathologist [facility] Sedimentation Rate (ESR) 4 0 - 20 mm/hr 05/20/2024 1:59 PM EDT [facility] DEPARTMENT OF LABORATORY MEDICINE Blood Venipuncture / Unknown 05/20/2024 12:53 PM EDT 05/20/2024 1:31 PM EDT us Provider Not In System LAB BLOOD ORDERABLES Evelin l Result [facility] DEPARTMENT OF LABORATORY MEDICINE [address] [place] [address] * (ABNORMAL) C-reactive protein (CRP) (04/15/2024 12:20 PM EDT) CRP, High Sensitivity 3.1(H) See comment mg/L 04/15/2024 3:42 PM EDT [facility] DEPARTMENT OF LABORATORY MEDICINE [...] ORDERABLES Evelin l Result Performing Organization Address [place] Co de Phone Number [facility] DEPARTMENT OF LABORATORY MEDICINE [address] [place] [address] * (ABNORMAL) Sedimentation rate (ESR) (04/15/2024 12:20 PM EDT) Sedimentation Rate (ESR) 24(H) 0 - 20 mm/hr 04/15/2024 3:41 PM EDT [facility] DEPARTMENT OF LABORATORY MEDICINE Blood Venipuncture / Unknown 04/15/2024 12:20 PM EDT 04/15/2024 2:54 PM EDT us Provider Not In System LAB BLOOD ORDERABLES Evelin l Result Performing Organization Address [place] Co de Phone Number [facility] DEPARTMENT OF LABORATORY MEDICINE [address] [place] [address] * (ABNORMAL) C-reactive protein (CRP) (03/17/2024 10:36 AM EDT) CRP, High Sensitivity 6.3(H) See comment mg/L 03/17/2024 11:47 AM EDT [facility] DEPARTMENT OF LABORATORY MEDICINE [...] ORDERABLES Evelin l Result Performing Organization Address [place]/ZIP Co de Phone Number [facility] DEPARTMENT OF LABORATORY MEDICINE [address] [place] [address] * (ABNORMAL) Sedimentation rate (ESR) (03/17/2024 10:36 AM EDT) Sedimentation Rate (ESR) 23(H) 0 - 20 mm/hr 03/17/2024 11:46 AM EDT [facility] DEPARTMENT OF LABORATORY MEDICINE Blood Venipuncture / Unknown 03/17/2024 10:36 AM EDT 03/17/2024 11:15 AM EDT Provider Not In System LAB BLOOD ORDERABLES Evelin l Result Performing Organization Address [place] de Phone Number [facility] DEPARTMENT OF LABORATORY MEDICINE [address] [place] [address] * (ABNORMAL) C-reactive protein (CRP) (02/20/2024 3:41 PM EDT) CRP, High Sensitivity 8.9(H) See comment mg/L 02/20/2024 4:36 PM EDT [facility] DEPARTMENT OF LABORATORY MEDICINE [...] ORDERABLES Evelin l Result Performing Organization Address [facility] Co de Phone Number [facility] DEPARTMENT OF LABORATORY MEDICINE [address] [place] [address] * Sedimentation rate (ESR) (02/20/2024 3:41 PM EDT) Sedimentation Rate (ESR) 18 0 - 20 mm/hr 02/20/2024 7:04 PM EDT [facility] DEPARTMENT OF LABORATORY MEDICINE Blood Venipuncture / Unknown 02/20/2024 3:41 PM EDT 02/20/2024 4:04 PM EDT us Provider Not In System LAB BLOOD ORDERABLES Evelin l Result Performing Organization Address [facility] de Phone Number [facility] DEPARTMENT OF LABORATORY MEDICINE [address] [place] [address] * (ABNORMAL) C-reactive protein (CRP) (12/09/2023 1:52 PM EDT) CRP, High Sensitivity 4.4(H) See comment mg/L 12/09/2023 4:44 PM EDT [facility] DEPARTMENT OF LABORATORY MEDICINE [...] ORDERABLES Evelin l Result Performing Organization Address [place] Co de Phone Number [facility] DEPARTMENT OF LABORATORY MEDICINE [address] [place] [address] * Sedimentation rate (ESR) (12/09/2023 1:52 PM EDT) Sedimentation Rate (ESR) 10 0 - 20 mm/hr 12/09/2023 5:08 PM EDT [facility] DEPARTMENT OF LABORATORY MEDICINE Blood Venipuncture / Unknown 12/09/2023 1:52 PM EDT 12/09/2023 4:20 PM EDT us Provider Not In System LAB BLOOD ORDERABLES Evelin l Result [facility] DEPARTMENT OF LABORATORY MEDICINE [address] [place] [address], [facility] [phone] documented in this encounter Visit Diagnoses 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
--- OUTSIDE RECORDS SUMMARY | 2024-11-11 14:17 | XMS_ITS | Patient Health Record ---
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 Progressiv e systemic sclerosis (380614664) Problem Dysphagia, pharyngoesophageal phase (R13.14) Active confirmed Pharyngeal dysphagia (6590244321396 5) Problem Dysphonia (R49.0) Active confirmed Dysp honia (92406744) Problem Other diseases of larynx (J38.7) Active confirmed Disease of larynx (50805487) PLAN OF TREATMENT No Information Insurance Providers Payer Name Payer Address Payer Phone Subscriber Number Group Number Insured Name Patient Relationship to Insured Coverage Start Date Coverage [place] [address] [place] [place] [address] [id number] Medicare Bernadette Zapata Self - patient is the insured 9
--- OUTSIDE RECORDS SUMMARY | 2024-11-11 14:17 | XMS_ITS | Encounter Summary ---
Author Organization [facility] Address [address] [place] [address] Care Team Providers Care Floral Decorator Name Role Phone Sal Jose MD Primary Care Provider [phone] Encounter Details Date Type Department Care Team (Late Contact Info) Description 07/21/2024 Transcribed Orders [facility] Laboratory Specimens 55 [place] [address] System, Provider Not In CRST syndrome (HC [...] EDT Follow Up Pulmonary Critical [place] 136 [facility] 302 [place], [place] [phone] Ramon Nixon MD [address] [place] [phone] 04/28/2025 1:45 PM EDT Follow Up Stroke 800 [place] [address] Kristine Kelly MD PhD 800 [place] [address] 05/04/2025 1:00 PM EDT Follow Up Cardiovascular Medicine at 175 [facility] 175 [place] [address] Mike Hilario MD [address] [place] [address] 2 [place] [address] 07/20/2025 11:40 AM EST Follow Up Epilepsy & Seizures at 800 [facility] 800 [place] [address] Virgie Mast MD PhD 800 [place] [address] documented as of this encounter Results * Sedimentation rate (ESR) (07/23/2024 1:13 PM EST) Sedimentation Rate (ESR) 12 0 - 20 mm/hr 07/23/2024 2:55 PM EST [facility] DEPARTMENT OF LABORATORY MEDICINE Blood Venipuncture / Unknown 07/23/2024 1:13 PM EST 07/23/2024 2:24 PM EST us Provider Not In System LAB BLOOD ORDERABLES Evelin smith Result [facility] DEPARTMENT OF LABORATORY MEDICINE [address] [place] [address] documented in this encounter Visit Diagnoses 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
--- OUTSIDE RECORDS SUMMARY | 2024-11-11 14:17 | XMS_ITS | Encounter Summary ---
Author Organization [facility] Address [address] [address] Phone Care Team Providers Care Art History Instructor Name Role Phone Sal Jose MD Primary Care Provider [phone] Encounter Details Date Type Department Care Team (Late Contact Info) Description 05/25/2024 Scanned Document [facility] - [address] [phone] Nain Cat MD [address] [place] [phone] Social History Tobacco Use Types Packs/Day [...] 12:00 PM EDT Follow Up Pulmonary Critical [address] [address] Ramon Nixon MD 136 [facility] 302 [place] [address] 04/28/2025 1:45 PM EDT Follow Up Stroke 800 [place] [address] Kristine Kelly MD PhD 800 [place] [address] 05/04/2025 1:00 PM EDT Follow Up Cardiovascular Medicine at 175 [facility] 175 [place] [address] Mike Hilario MD 175 [facility] 2 [place] [phone] 07/20/2025 11:40 AM EST Follow Up Epilepsy & Seizures at 800 [facility] 800 [place] [address] Virgie Mast MD PhD 800 [place] [address] documented as of this encounter Visit Diagnoses Not on filedocumented in this encounter Additional Health Concerns Assessment Noted Time PHQ-9 Depression Total Score: 0 04/07/20 2:31 PM EDT documented as of this encounter Care Teams Art History Instructor Relationship Specialty Start Date End Date Sal Jose MD [address] [place] [phone] PCP - General Family Medicine 10/16/23 documented as of this encounter
--- OUTSIDE RECORDS SUMMARY | 2024-11-11 14:17 | XMS_ITS | Encounter Summary ---
Author Organization [facility] Address [address] [place] [address] Care Team Providers Care Ham Passer Name Role Phone Sal Jose MD Primary Care Provider [phone] Encounter Details Date Type Department Care Team (Late st Contact Info) Description 10/28/2023 Scanned Document [facility] at 800 [facility] 800 [place] [address] Joao Loredo MD 800 [place] [phone] Social History Tobacco Use Types Packs/Day Years [...] EDT Follow Up [place] Critical [place] 136 [facility] [address] [place], [place] [address] Ramon Nixon MD 136 [facility] 302 [place] [phone] 04/28/2025 1:45 PM EDT Follow Up Y[facility] Stroke 800 [place] [address] Kristine Kelly MD PhD [address] [place] [address] 05/04/2025 1:00 PM EDT Follow Up Cardiovascular Medicine at 175 [facility] 175 [place] [address] Mike Hilario MD 175 [facility] 2 [place] [address] 07/20/2025 11:40 AM EST Follow Up Epilepsy & Seizures at 800 [facility] 800 [facility] [address] Virgie Mast MD PhD [address] [place] [address] documented as of this encounter Procedures Procedure [...] MRI Result Scan (04/12/2020 12:01 PM EDT) [facility] Provider IMG SCAN REPORTS Final Resul t * MRI Result Scan (04/12/2020 11:55 AM EDT) Historical Provider IMG SCAN REPORTS Final Resul t * MRI Result Scan (04/08/2020 12:04 PM EDT) [facility] Provider IMG SCAN REPORTS Final [...] CT Result Scan (09/28/2012 12:30 PM EST) [facility] Provider IMG SCAN REPORTS Final Resul t * CT Result Scan (09/07/2012 12:34 PM EST) [facility] Provider IMG SCAN REPORTS Final Resul t * CT Result Scan (02/13/2012 12:38 PM EDT) Historical Provider IMG SCAN REPORTS Final Resul t * CT Result Scan (12/17/2010 1:03 PM EDT) [facility] Provider IMG SCAN REPORTS Final Resul t * CT Result Scan (12/17/2010 1:00 PM EDT) [facility] Provider IMG SCAN REPORTS Final Resul t * CT Result Scan (12/17/2010 12:56 PM EDT) Result [facility] Provider IMG SCAN REPORTS Final Resul t * CT Result Scan (12/17/2010 12:52 PM EDT) Result [facility] Provider IMG SCAN REPORTS Final Resul t * CT Result Scan (12/17/2010 12:46 PM EDT) [facility] Provider IMG SCAN REPORTS Final Resul t * CT Result Scan (12/17/2010 12:41 PM EDT) Historical Provider IMG SCAN REPORTS Final Resul t documented in this encounter Visit Diagnoses Not on filedocumented in this encounter Care Teams Ham Passer Relationship Specialty Start Date End Date Sal Jose MD [address] [phone] PCP - General Family Medicine 10/16/23 documented as of this encounter
--- OUTSIDE RECORDS SUMMARY | 2024-11-11 14:17 | XMS_ITS | Encounter Summary ---
Author Organization [facility] and [facility] Address [address] [place] [phone] Care Team Providers Care Child Care Associate Name Role Phone Sal Jose MD Primary Care Provider [phone] Encounter Details Date Type Department Care Team (Late st Contact Info) Description 10/28/2023 Scanned Document [facility] at 800 [facility] 800 [place] [address] Joao Loredo MD 800 [place] [phone] Social History Tobacco Use Types Packs/Day Years [...] [place] 136 [facility] [address] [place], [place] [address] Ramon Nixon MD 136 [facility] 302 [place] [phone] 04/28/2025 1:45 PM EDT Follow Up YM Stroke 800 [place] [address] Kristine Kelly MD PhD 800 [place] [address] 05/04/2025 1:00 PM EDT Follow Up Cardiovascular Medicine at 175 [facility] 175 [place] [address] Mike Hilario MD 175 [facility] 2 [place] [address] 07/20/2025 11:40 AM EST Follow Up Epilepsy & Seizures at 800 [facility] 800 [place] [address] Virgie Mast MD PhD 800 [place] [phone] documented as of this encounter Visit Diagnoses Not on filedocumented in this encounter Care Teams Child Care Associate Relationship Specialty Start Date End Date Sal Jose MD [address] [phone] PCP - General Family Medicine 10/16/23 documented as of this encounter
--- OUTSIDE RECORDS SUMMARY | 2024-11-11 14:17 | XMS_ITS | Encounter Summary ---
Author Organization [facility] and [facility] Address [address] [place] [phone] Care Team Providers Care Product Support Manager Name Role Phone Sal Jose MD Primary Care Provider Reason for Visit * Reason Onset Date Comments Holter/Event Monitor 11/13/2023 Trying to E nroll Pt for MCT monitor Encounter Details Date Type Department Care Team (Late st Contact Info) Description 11/13/2023 Telephone [facility] Stroke 800 [place], [place] [address] Kristine Kelly MD PhD 800 [place] [phone] Holter/Event Monitor (Trying to Enroll Pt for [...] Follow Up Pulmonary Critical [place] 136 [facility] 302 [place] [address] Ramon Nixon MD 136 [facility] 302 [place] [address] 04/28/2025 1:45 PM EDT Follow Up YM Stroke 800 [place] [address] Kristine Kelly MD PhD 800 [place] [address] 05/04/2025 1:00 PM EDT Follow Up Cardiovascular Medicine at 175 [facility] 175 [facility] [place] [address] Mike Hilario MD 175 [facility] [address] 2 [place] [address] 07/20/2025 11:40 AM EST Follow Up Epilepsy & Seizures at 800 [facility] 800 [facility] [place] [address] Virgie Mast MD PhD 800 [place] [phone] documented as of this encounter Visit Diagnoses Not on filedocumented in this encounter Care Teams Product Support Manager Relationship Specialty Start Date End Date Sal Jose MD [facility] [address] [phone] PCP - General Family Medicine 10/16/23 documented as of this encounter
--- OUTSIDE RECORDS SUMMARY | 2024-11-11 14:17 | XMS_ITS | Encounter Summary ---
Author Organization [facility] Address Unknown Care Team Providers Care International Banker Name Role Phone Sal Jose MD Primary Care Provider [phone] Encounter Details Date Type Department Care Team (Late st Contact Info) Description 05/11/2024 Scanned Document Pulmonary Critical [place] 136 [facility] 302 [place], [place] [address] Ramon Nixon MD 136 [facility] 302 [place] [phone] Social History Tobacco Use Types Packs/Day Years [...] EDT Follow Up Pulmonary Critical [place] 136 [facility] [address] [place], [place] [phone] Ramon Nixon MD 136 [facility] 302 [place] [address] 04/28/2025 1:45 PM EDT Follow Up Stroke 800 [place] [address] Kristine Kelly MD PhD 800 [place] [address] 05/04/2025 1:00 PM EDT Follow Up Cardiovascular Medicine at 175 [facility] 175 [facility] [address] Mike Hilario MD 175 [facility] 2 [place] [address] 07/20/2025 11:40 AM EST Follow Up Epilepsy & Seizures at 800 [facility] 800 [place] [address] Virgie Mast MD PhD 800 [facility] [phone] documented as of this encounter Visit Diagnoses Not on filedocumented in this encounter Additional Health Concerns Assessment Noted Time PHQ-9 Depression Total Score: 0 04/07/20 2:31 PM EDT documented as of this encounter Care Teams International Banker Relationship Specialty Start Date End Date Sal Jose MD [facility] [address] [phone] PCP - General Family Medicine 10/16/23 documented as of this encounter
--- OUTSIDE RECORDS SUMMARY | 2024-11-11 14:17 | XMS_ITS | Encounter Summary ---
Author Organization [facility] and [facility] Address [address] [place] [phone] Care Team Providers Care Pca Name Role Phone Sal Jose MD Primary Care Provider [phone] Encounter Details Date Type Department Care Team (Late Contact Info) Description 08/31/2024 Transcribed Orders [facility]ens 55 [place] [address] System, Provider Not In CRST syndrome (HC [...] Critical [place] 136 [facility] 302 [place], [place] [phone] Ramon Nixon MD [address] [place] [address] 04/28/2025 1:45 PM EDT Follow Up Stroke 800 [facility] [address] Kristine Kelly MD PhD 800 [facility] [place] [address] 05/04/2025 1:00 PM EDT Follow Up Cardiovascular Medicine at 175 [facility] 175 [place] [address] Mike Hilario MD [address] [place] [address] 2 [place] [address] 07/20/2025 11:40 AM EST Follow Up Epilepsy & Seizures at 800 [facility] 800 [place] [address] Virgie Mast MD PhD 800 [facility] [place] [address] Scheduled Orders Name Type Priority Associated Diagnoses [...] documented as of this encounter Care Teams Pca Relationship Specialty Start Date End Date Sal Jose MD 1033 [facility] [address] [place] [phone] PCP - General Family Medicine 10/16/23 documented as of this encounter
--- OUTSIDE RECORDS SUMMARY | 2024-11-11 14:17 | XMS_ITS | Encounter Summary ---
Author Organization [facility] and [facility] Address [address] [place] [phone] Care Team Providers Care Horticulture Professor Name Role Phone Sal Jose MD Primary Care Provider [phone] Encounter Details Date Type Department Care Team (Late st Contact Info) Description 10/28/2023 Scanned Document [facility] Neuro[facility] at 800 [facility] 800 [place] [address] Joao Loredo MD 800 [place] [phone] Social History Tobacco Use Types Packs/Day Years [...] EDT Follow Up Pulmonary Critical [place] 136 [facility] [address] [place], [place] [address] Ramon Nixon MD 136 [facility] 302 [place] [address] 04/28/2025 1:45 PM EDT Follow Up YM Stroke 800 [facility] [address] Kristine Kelly MD PhD 800 [place] [address] 05/04/2025 1:00 PM EDT Follow Up Cardiovascular Medicine at 175 [facility] 175 [place] [address] Mike Hilario MD 175 [facility] 2 [place] [address] 07/20/2025 11:40 AM EST Follow Up Epilepsy & Seizures at 800 [facility] 800 [facility] [address] Virgie Mast MD PhD 800 [place] [address] documented as of this encounter Procedures Procedure [...] on filedocumented in this encounter Care Teams Horticulture Professor Relationship Specialty Start Date End Date Sal Jose MD [address] [phone] PCP - General Family Medicine 10/16/23 documented as of this encounter
--- OUTSIDE RECORDS SUMMARY | 2024-11-11 14:18 | XMS_ITS | Encounter Summary ---
Author Organization [facility] and [facility] Address 20 [place] [address] Care Team Providers Care Linen Room Custodian Name Role Phone Sal Jose MD Primary Care Provider Encounter Details Date Type Department Care Team (Late Contact Info) Description 08/09/2014 Abstract [facility] Endocrinology at 175 [facility] 175 [place] [address] Emerita Beth MD 35 [place] [phone] Social History Tobacco Use Types Packs/Day Years [...] EDT Follow Up Pulmonary Critical [place] 136 [facility] 302 [place], [place] [address] Ramon Nixon MD 136 [facility] 302 [place] [address] 04/28/2025 1:45 PM EDT Follow Up Y[facility] Stroke 800 [place] [address] Kristine Kelly MD PhD 800 [place] [address] 05/04/2025 1:00 PM EDT Follow Up Cardiovascular Medicine at 175 [facility] 175 [facility] [place] [address] Mike Hilario MD 175 [facility] 2 [place] [address] 07/20/2025 11:40 AM EST Follow Up Epilepsy & Seizures at [address] [facility] [address] [facility] Lower [place], [place] [address] Virgie Mast MD PhD 800 [place] [address] documented as of this encounter Visit Diagnoses Not on filedocumented in this encounter Care Teams Linen Room Custodian Relationship Specialty Start Date End Date Sal Jose MD [address] [phone] PCP - General Family Medicine 10/16/23 documented as of this encounter
--- OUTSIDE RECORDS SUMMARY | 2024-11-11 14:18 | XMS_ITS | Encounter Summary ---
Author Organization [facility] Address Unknown Care Team Providers Care Retention Manager Name Role Phone Sal Jose MD Primary Care Provider [phone] Encounter Details Date Type Department Care Team (Late st Contact Info) Description 11/27/2021 Scanned Document Pulmonary Critical [place] [address] [address] External, Provider Social History Tobacco Use Types [...] 12:00 PM EDT Follow Up Pulmonary Critical [place] 136 [facility] 302 [place] [address] Ramon Nixon MD 136 [facility] 302 [place] [address] 04/28/2025 1:45 PM EDT Follow Up Stroke 800 [place] [address] Kristine Kelly MD PhD 800 [place] [address] 05/04/2025 1:00 PM EDT Follow Up Cardiovascular Medicine at 175 [facility] 175 [place] [address] Mike Hilario MD 175 [facility] 2 [place] [address] 07/20/2025 11:40 AM EST Follow Up Epilepsy & Seizures at 800 [facility] 800 [facility] Lower [place], [place] [address] Virgie Mast MD PhD 800 [place] [phone] documented as of this encounter Visit Diagnoses Not on filedocumented in this encounter Care Teams Retention Manager Relationship Specialty Start Date End Date Sal Jose MD 1033 [facility] [address] [place] [phone] PCP - General Family Medicine 10/16/23 documented as of this encounter
--- OUTSIDE RECORDS SUMMARY | 2024-11-11 14:18 | XMS_ITS | Encounter Summary ---
Author Organization [facility] Address Unknown Care Team Providers Care Data Entry Supervisor Name Role Phone Sal Jose MD Primary Care Provider [phone] Encounter Details Date Type Department Care Team (Late st Contact Info) Description 11/27/2021 Scanned Document Pulmonary Critical [place] 136 [facility] 302 [place] [address] Gaviota Rivera, OT Social History Tobacco Use [...] EDT Follow Up Pulmonary Critical [place] 136 [facility] 302 [place] [address] Ramon Nixon MD 136 [facility] 302 [place] [address] 04/28/2025 1:45 PM EDT Follow Up Stroke 800 [place] [address] Kristine Kelly MD PhD 800 [place] [address] 05/04/2025 1:00 PM EDT Follow Up Cardiovascular Medicine at 175 [facility] 175 [facility] [address] Mike Hilario MD 175 [facility] Fl 2 [place] [address] 07/20/2025 11:40 AM EST Follow Up Epilepsy & Seizures at 800 [facility] 800 [facility] Lower [place], [place] [address] Virgie Mast MD PhD 800 [place] [phone] documented as of this encounter Visit Diagnoses Not on filedocumented in this encounter Care Teams Data Entry Supervisor Relationship Specialty Start Date End Date Sal Jose MD [address] [phone] PCP - General Family Medicine 10/16/23 documented as of this encounter
--- OUTSIDE RECORDS SUMMARY | 2024-11-11 14:18 | XMS_ITS | Encounter Summary ---
Author Organization [facility] Address Unknown Care Team Providers Care Manager Home Healthcare Name Role Phone Sal Jose MD Primary Care Provider [phone] Encounter Details Date Type Department Care Team (Late st Contact Info) Description 08/13/2023 Scanned Document Pulmonary Critical [place] [address] [address] External, Provider Social History Tobacco Use Types [...] EDT Follow Up Pulmonary Critical [place] 136 [facility] 302 [place] [address] Ramon Nixon MD 136 [facility] 302 [place] [address] 04/28/2025 1:45 PM EDT Follow Up Stroke 800 [place] [address] Kristine Kelly MD PhD 800 [place] [address] 05/04/2025 1:00 PM EDT Follow Up Cardiovascular Medicine at 175 [facility] 175 [place] [address] Mike Hilario MD 175 [facility] Fl 2 [place] [address] 07/20/2025 11:40 AM EST Follow Up Epilepsy & Seizures at 800 [facility] 800 [facility] [place] [address] Virgie Mast MD PhD 800 [place] [address] documented as of this encounter Visit Diagnoses Not on filedocumented in this encounter Care Teams Manager Home Healthcare Relationship Specialty Start Date End Date Sal Jose MD 1033 [facility] [address] [place] [phone] PCP - General Family Medicine 10/16/23 documented as of this encounter
--- OUTSIDE RECORDS SUMMARY | 2024-11-11 14:18 | XMS_ITS | Encounter Summary ---
Author Organization [facility] Address Unknown Care Team Providers Care Annual Giving Officer Name Role Phone Sal Jose MD Primary Care Provider [phone] Encounter Details Date Type Department Care Team (Late st Contact Info) Description 11/19/2022 Scanned Document Pulmonary Critical [place] [address] [address] External, Provider Social History Tobacco Use Types [...] EDT Follow Up Pulmonary Critical [place] 136 [facility] 302 [place] [address] Ramon Nixon MD 136 [facility] 302 [place] [address] 04/28/2025 1:45 PM EDT Follow Up Stroke 800 [place] [address] Kristine Kelly MD PhD 800 [place] [address] 05/04/2025 1:00 PM EDT Follow Up Cardiovascular Medicine at 175 [facility] 175 [place] [address] Mike Hilario MD 175 [facility] Fl 2 [place] [address] 07/20/2025 11:40 AM EST Follow Up Epilepsy & Seizures at 800 [facility] 800 [facility] Lower [place], [place] [address] Virgie Mast MD PhD 800 [place] [phone] documented as of this encounter Visit Diagnoses Not on filedocumented in this encounter Care Teams Annual Giving Officer Relationship Specialty Start Date End Date Sal Jose MD 1033 [facility] [address] [place] [phone] PCP - General Family Medicine 10/16/23 documented as of this encounter
--- OUTSIDE RECORDS SUMMARY | 2024-11-11 14:18 | XMS_ITS | Encounter Summary ---
Author Organization [facility] Address Unknown Care Team Providers Care Collet Maker Name Role Phone Sal Jose MD Primary Care Provider Encounter Details Date Type Department Care Team (Late st Contact Info) Description 08/13/2023 Scanned Document Pulmonary Critical [place] [address] [address] External, Provider Social History Tobacco Use Types [...] 12:00 PM EDT Follow Up Pulmonary Critical [place] 136 [facility] 302 [place] [address] Ramon Nixon MD 136 [facility] 302 [place] [address] 04/28/2025 1:45 PM EDT Follow Up Stroke 800 [place] [address] Kristine Kelly MD PhD 800 [place] [address] 05/04/2025 1:00 PM EDT Follow Up Cardiovascular Medicine at 175 [facility] 175 [place] [address] Mike Hilario MD 175 [facility] Fl 2 [place] [address] 07/20/2025 11:40 AM EST Follow Up Epilepsy & Seizures at 800 [facility] 800 [facility] Lower [place], [place] [address] Virgie Mast MD PhD [address] [place] [phone] documented as of this encounter Visit Diagnoses Not on filedocumented in this encounter Care Teams Collet Maker Relationship Specialty Start Date End Date Sal Jose MD 1033 [facility] [address] [place] [phone] PCP - General Family Medicine 10/16/23 documented as of this encounter
--- OUTSIDE RECORDS SUMMARY | 2024-11-11 14:18 | XMS_ITS | Clinical Summary ---
Author Organization [employer] Address [address] [facility] [address] [place] [address] Care Team Providers Care Forensic Anthropologist Name Role Phone Cordell Saba Unavailable Unavailable [...] it. Procaine Nausea Only Low 10/19/2023 Medications * This document contains information received from the source organization and may not represent a complete record from that organization. 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 Date Type Department Care Team Description 10/28/[address] [facility] OPTOMETRY [address] [place] [address] Sahara Barone RMA 10/21/2024 11:00 AM EDT Office Visit [facility] DENTAL [address] [place] [address] Jamison Briscoe LLD 10/14/2024 11:00 AM EDT Office Visit [facility] DENTAL [address] [place] [address] Jamison Briscoe LLD 08/26/2024 9:40 AM EST Office Visit [facility] DENTAL [address] [place] [address] Hanane Mason Stage 2 grade B generalized periodontitis per AAP/EFP 2017 classification (Primary Dx); Encounter for dental examination; Dental caries 08/24/2024 Patient Outreach [facility] Case Management [address] [place] [address] Cordell Saba 08/16/[address] [facility] MEDICAL [address] [place] [address] Cordell Saba 08/16/[address] [facility] MEDICAL [address] [place] [address] Cordell Saba 08/13/[address] [facility] MEDICAL [address] [place] [address] Cordell Saba 08/13/[address] [facility] MEDICAL [address] [place] [address] Cordell Saba 08/13/[address] [facility] MEDICAL [address] [place] [address] Cordell Saba from Last 3 Months Family History Medical History Relation Name Comments Macular degeneration Maternal Grandmother Glaucoma Paternal Grandmother Relation Name Status Comments Maternal Grandmother Paternal Grandmother Social History Tobacco Use Types Packs/Day Years Used Date Smoking Tobacco: Never Smokeless Tobacco: Never Tobacco Cessation:Counseling Given: Not Answered Alcohol Use Standard Drinks/Week Comments Never 0 (1 standard drink = 0.6 oz pur e alcohol) Depression Answer Date Recorded Patient Health Questionnaire-9 Score 16 11/08/2024 Patient Health Questionnaire-9 Score 16 11/08/2024 Last PHQ-9: Questionnaire Data Not on file 0 11/08/2024 Depression Answer Date Recorded Patient Health Questionnaire-2 Score 3 11/08/2024 Comments Unknown Sex and Gender Information Value [...] Care Team (Late st Contact Info) Description 11/18/2024 12:00 PM EDT Office Visit [facility] DENTAL [address] [place] [address] Jamison Briscoe LLD 9 [place] [address] 11/25/2024 3:00 PM EDT Office Visit [facility] DENTAL [address] [place] [address] Jamison Briscoe, LLKymberly 9 [place] [address] 02/03/2025 10:00 AM EDT Office Visit [facility] OPTOMETRY [address] [place] [address] Cherelle Vidal, OD [address] [place] [address] 02/24/2025 12:00 PM EDT Office Visit [facility] DENTAL [address] [place] [address] Hanane Mason Health Maintenance Due Date Last Done Comments CT Colonography 1961 Colonoscopy 1961 Colorectal Cancer Screening 1961 FIT DNA/Cologuard 1961 FIT 1961 [...] Exam 02/24/2025 08/26/2024 Dental Prophylaxis 02/24/2025 08/26/2024 Depression Monitoring 05/10/2025 11/08/2024, 025 Tobacco Screening 08/26/2025 08/26/2024 Dental X-Ray: Bitewings 08/27/2025 08/26/2024 Depression Screening 11/08/2025 11/08/2024, 11/09/19 Dental X-Ray: Full Mouth 08/27/2027 08/26/2024, 08/05 [...] 9:40 AM EST ORAL HYGIENE INSTRUCTIONS Routine 2024 9:40 AM EST Full PROPHYLAXIS - ADULT Routine 025 9:40 AM EST PERIODIC ORAL EVALUATION - ESTABLISHED PATIENT Routine 08/26/2024 9:40 AM EST 31 O COMPOSITE FILLING Routine 12:00 AM EST 4 MO COMPOSITE FILLING Routine 12:00 AM EST 13 PFM CROWN Routine 08/26/2024 12:00 AM EST 14 PFM CROWN Routine 08/26/2024 12:00 AM EST 18 PFM CROWN Routine 08/26/2024 12:00 AM EST 12 MOD COMPOSITE FILLING Routine 025 12:00 AM EST 10 PREFABRICATED POST AND [...] AM EST 20 MOD COMPOSITE FILLING Routine 025 12:00 AM EST 29 PFM CROWN Routine 08/26/2024 12:00 AM EST 29 PREFABRICATED POST AND CORE IN ADDITION TO CROWN Routine 08/26/2024 12:00 AM EST 29 ROOT CANAL Routine 08/26/2024 12:00 AM EST 3 MOD COMPOSITE FILLING Routine 08/26/19 12:00 AM EST 8 IMPLANT SUPPORTED PORCELAIN/CERAMIC [...] 1 EXTRACTION Routine 08/26/2024 12:00 AM EST from Last 3 Months Insurance [facility] HMO N FULL [facility] FULL [facility] HMO 1-D Jerry Chapman. GARCIA Gonsalez [id number] DENTAL - HSN FULL (MEDICAID) Care Teams Forensic Anthropologist Relationship Specialty Start Date End Date Cordell Saba [facility] 08/12/24 CASSIDY DE LA FUENTE NPI ID: [id number] Address: [address] [place] [phone] Primary Care Physician [id number] Primary Care Provider 08/12/18
--- OUTSIDE RECORDS SUMMARY | 2024-11-11 14:18 | XMS_ITS | Encounter Summary ---
Author Organization [facility] Address Unknown Care Team Providers Care Radio Artist Name Role Phone Sal Jose MD Primary Care Provider [phone] Encounter Details Date Type Department Care Team (Late st Contact Info) Description 11/19/2022 Scanned Document Pulmonary Critical [place] [address] [address] External, Provider Social History Tobacco Use Types [...] EDT Follow Up Pulmonary Critical OR 136 [facility] [address] [place] [address] Ramon Nixon MD 136 [facility] [address] [place] [id number] 04/28/2025 1:45 PM EDT Follow Up Stroke [address] [place] [address] Kristine Kelly MD PhD [address] [place] [phone] 05/04/2025 1:00 PM EDT Follow Up Cardiovascular Medicine at 175 [facility] 175 [place] [address] Mike Hilario MD 175 [facility] [address] [place] [id number] 07/20/2025 11:40 AM EST Follow Up Epilepsy & Seizures at 800 [facility] 800 [facility] [address] [place], [place] [address] Virgie Mast MD PhD [address] [place] [phone] documented as of this encounter Visit Diagnoses Not on filedocumented in this encounter Care Teams Radio Artist Relationship Specialty Start Date End Date aSl Jose MD [address] [facility] [address] [place] [phone] PCP - General Family Medicine 10/16/23 documented as of this encounter
== END 2024-11-11 13:13 | disposition home or self-care (01) ==
LOC: HO.HMCFM 11:43
PROVIDERS: PCP Family Medicine; Visit Provider Family Medicine
DX: I10 Essential (primary) hypertension (principal); Z86.73 Personal history of transient ischemic attack (TIA), and cerebral infarction without residual deficits

== ENCOUNTER → 2024-11-11 11:42 | Outpatient (BNVA) | payer MEDICARE, MEDICAID, SELFPAY | PROVIDERS: PCP Family Medicine; Visit Provider Family Medicine | DX: I10 Essential (primary) hypertension (principal); Z86.73 Personal history of transient ischemic attack (TIA), and cerebral infarction without residual deficits | CPT/HCPCS: 99212 ==

== ENCOUNTER 2025-02-15 10:01 | Outpatient (AMB) | payer MEDICARE, MEDICAID, SELFPAY ==
--- OUTSIDE RECORDS SUMMARY | 2025-02-08 09:40 | XMS_ITS ---
Author Organization [facility] Address [address] [place] [id number] Care Team Providers Care Director Social Welfare Name Role Phone Jayant Walker Primary Care Provider UnavailVenkatesh Melendez Unavailable [phone] Allergies Allergen (clinical drug ingredient) Drug/Non Drug Allergy documented on EMR Reaction Allergy Type Onset Date Status Penicillin Unknown Drug Allergy Active morphine Morphine Unknown Drug Allergy Active REASON FOR VISIT Patient presents today for a screening colon /upper Medications Medication SIG (Take, Route, Frequency, Duration) Notes Start Date End Date Status Vitamin B 12 500 MCG 1 tablet Orally Once a day for 30 day(s) 02/08/2025 Active Ventolin HFA 108 (90 Base) MCG/ACT 1 puff as needed Inhalation every 4 hrs 02/08/2025 Active Metoprolol Succinate ER 25 MG Oral for 90 Days Active Protonix 40 MG 1 tablet 1/2 to 1 hour before morning meal Orally Once a day for 30 day(s) 02/08/2025 Active Pantoprazole Sodium 40 MG 1 tablet 1/2 to 1 hour before morning meal Orally Once a day for 30 days Please remind the patient to speak with the physician prescribing her clopidogrel before she starts to use the pantoprazole Thanks very much 02/08/2025 Active Lidocaine 5 % 1 patch remove after 12 hours Externally Once a day 02/08/2025 Active levETIRAcetam 500 MG 1 tablet Orally every 12 hrs for 30 day(s) 02/08/2025 Active Pentoxifylline ER 400 MG 1 tablet with meals Orally Twice a day for 30 day(s) 02/08/2025 Active Diclofenac 1.25 % 1 patch Externally Once a day 02/08/2025 Active Cetirizine HCl 10 MG 1 tablet Orally Once a day for 30 day(s) 02/08/2025 Active Montelukast Sodium 10 MG TAKE 1 TABLET BY MOUTH EVERY DAY AT NIGHT Oral for 90 Days Active traMADol HCl 50 MG TAKE 1 TABLET BY MOUTH TWICE A DAY NEEDED FOR PAIN Oral for 30 Days Active Aspirin 81 81 MG 1 tablet Orally Once a day for 30 day(s) 02/08/2025 Active Ambien 10 MG 1 tablet at bedtime as needed Orally Once a day 02/08/2025 Active Vitamin B Complex - as directed Orally 02/08/2025 Active Clopidogrel Bisulfate 75 MG TAKE 1 TABLET BY MOUTH EVERY DAY Oral for 90 Days Active Metoprolol Succinate ER 25 MG TAKE 1 TABLET BY MOUTH 2 TIMES A DAY FOR 90 DAYS Oral for 90 Days Active Budesonide-Formoterol Fumarate 160-4.5 MCG/ACT INHALE 2 PUFFS INTO THE LUNGS TWICE A DAY Inhalation for 30 Days Active Fenofibrate 145 MG TAKE 1 TABLET BY MOUTH EVERY DAY Oral for 90 Days Active Silver sulfADIAZINE 1 % APPLY TOPICALLY 2 TIMES A DAY FOR 10 DAYS APPLY A 1.5 MM THICKNESS. NEED INSURANCE External for 10 Days Active Levothyroxine Sodium 50 MCG Oral for 90 Days Active Atorvastatin Calcium 80 MG Oral for 90 Days Active amLODIPine Besy-Benazepril HCl 5-10 MG Oral for 90 Days Active Albuterol Sulfate HFA 108 (90 Base) MCG/ACT Inhalation for 16 Days Active Albuterol Sulfate HFA 108 (90 Base) MCG/ACT INHALE 2 PUFFS INTO THE LUNGS EVERY 4 (FOUR) HOURS NEEDED FOR SHORTNESS OF BREATH Inhalation for 16 Days Active Levothyroxine Sodium 50 MCG TAKE 1 TABLET BY MOUTH EVERY DAY Oral for 90 Days Active Gabapentin 400 MG TAKE 1 CAPSULE BY MOUTH 3 TIMES DAILY. Oral for 30 Days Active Mycophenolate Mofetil 250 MG TAKE 5 CAPSULES BY MOUTH TWICE A DAY Oral for 90 Days Active Social History Tobacco Use: Social History Observation Description Date Details (start date - stop date) Never Smoker NA - NA Tobacco Control (Standard) Question Answer Notes Tobacco use: Nonsmoker AUDIT-C (Standard) Question Answer Notes Did you have a drink containing alcohol in the p ast year? No Points 0 Interpretation Negative Problems Problem Type SNOMED Code ICD Code Onset Dates Problem Status W/U Status Risk Notes Problem History of polyp of colon (situation) (415299625) History of colon polyps (Z86.0100) Active confirmed Problem Colon cancer screening (929093785) Colon cancer screening (Z12.11) Active confirmed Problem Long-term current use of anticoagulant (183530896) Anticoagulant long-term use (Z79.01) Active confirmed Problem Irregular bowel habits (619159923) Irregular bowel habits (R19.8) Active confirmed Problem Gastroesophageal reflux disease (532496248) GERD without esophagitis (K21.9) Active confirmed Problem Systemic sclerosis (70341227) 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) Active confirmed Vital Signs Temperature 98.0 degrees Fahrenheit 02/09/20 25 Blood pressure systolic 001 mm Hg 02/09/20 25 Blood pressure diastolic 01 mm Hg 025 Height 68 in 02/08/2025 Weight 222.4 lbs 02/08/2025 BMI 33.81 kg/m2 02/08/2025 Procedures Procedure Date Ordered Date Performed Result Body Sit e UPPER GI ENDOSCOPY 02/08/2025 N/A COLONOSCOPY 02/08/2025 N/A Encounters Encounter Location Date Provider Diagnosis [facility] [address] [place] [address] 02/08/2025 Venkatesh Marsh History of colon gely yps Z86.0100 ; Colon cancer screening Z12.11 ; Anticoagulant long-term use Z79.01 ; Irregular bowel habits R19.8 ; GERD without esophagitis K21.9 and Scleroderma of esophagus M34.1 Assessments Encounter Date Diagnosis (ICD Code) Assessment Notes Treatment Notes Treatment Clinical Notes Section Notes 02/08/2025 History of colon polyps (ICD-10 - Z86.0100) Overall, Roman appears to be doing well and appears stable from a GI standpoint. She is presently not having any particularly new or worrisome GI complaints. Her main issue is obviously that of her scleroderma with multiple associated issues requiring multiple subspecialty care. In regard to her GI issues, the upper GI complaints of previous esophageal strictures, reflux, and esophageal dysmotility appear to be stable although she is taking Tums fairly frequently and currently reports that she is not taking any acid suppression otherwise. However, her medication list does have Protonix on it. I shall check to see if she is actually on that regularly and if so I will advise her to stay on it along with her Tums. If she is not on that PPI I would then send a prescription over for her since I think that would be acceptable to use along with her clopidogrel. However, I will advise her to speak with her stroke doctor at [facility] who prescribes her clopidogrel so as to be sure that is not contraindicated from their standpoint. I did recommend a follow-up upper endoscopy given the description of her previous endoscopies and recommendations from her dietetics director in [place], [place]. She is not having any particularly worrisome lower GI complaints at this time. Some of her irregular bowel movement pattern may certainly be related to irritable bowel syndrome but may also be associated with some GI motility disturbance in the intestinal tract from the scleroderma. I did recommend a colonoscopy for further screening given the reported history of multiple colonoscopies in the past with some showing polyps and her last exam being about 5 years ago. We did review the rationale for that in regard to colorectal cancer prevention. Full consent has been obtained from her for both procedures, including risks of bleeding and perforation. The procedures will be done with monitored anesthesia care. She was given the below recommendations for adjustment of her medications prior to the procedures, but was advised to speak with her [facility] physicians about those recommendations to be sure there is no contraindication to them. I advised her that she might need Lovenox for bridging while off the clopidogrel and pentoxifylline. However, I advised her that would be up to the physicians at [facility]. These procedures will be scheduled for her at some point in the Fall. I do not think they need to be done sooner from a clinical standpoint based on no worrisome symptoms at the present time. I wanted to leave enough time for us to get information and ultimate clearance from all of her physicians at [facility]. She clearly has comorbidities including pulmonary issues, coronary artery disease, and cerebrovascular disease. I advised her to try to get clearance letters and summaries of her medical issues from the [facility] physician such that we can share them with the medical staff and anesthesiologist at [facility] prior to her procedures. If it turns out that her [facility] physicians do not think she is stable for these procedures we can always postpone them to a later date. Roman was comfortable with this plan. Thank you again for allowing me to participate in Roman's care. I shall continue to keep you advised of her progress. 02/08/2025 Colon cancer screening (ICD-10 - Z12.11) Need names of your [facility] doctors and we will need letters with summaries of your conditions to give our anesthesiologists Overall, Roman appears to be doing well and appears stable from a GI standpoint. She is presently not having any particularly new or worrisome GI complaints. Her main issue is obviously that of her scleroderma with multiple associated issues requiring multiple subspecialty care. In regard to her GI issues, the upper GI complaints of previous esophageal strictures, reflux, and esophageal dysmotility appear to be stable although she is taking Tums fairly frequently and currently reports that she is not taking any acid suppression otherwise. However, her medication list does have Protonix on it. I shall check to see if she is actually on that regularly and if so I will advise her to stay on it along with her Tums. If she is not on that PPI I would then send a prescription over for her since I think that would be acceptable to use along with her clopidogrel. However, I will advise her to speak with her stroke doctor at [facility] who prescribes her clopidogrel so as to be sure that is not contraindicated from their standpoint. I did recommend a follow-up upper endoscopy given the description of her previous endoscopies and recommendations from her dietetics director in [place], [place]. She is not having any particularly worrisome lower GI complaints at this time. Some of her irregular bowel movement pattern may certainly be related to irritable bowel syndrome but may also be associated with some GI motility disturbance in the intestinal tract from the scleroderma. I did recommend a colonoscopy for further screening given the reported history of multiple colonoscopies in the past with some showing polyps and her last exam being about 5 years ago. We did review the rationale for that in regard to colorectal cancer prevention. Full consent has been obtained from her for both procedures, including risks of bleeding and perforation. The procedures will be done with monitored anesthesia care. She was given the below recommendations for adjustment of her medications prior to the procedures, but was advised to speak with her [facility] physicians about those recommendations to be sure there is no contraindication to them. I advised her that she might need Lovenox for bridging while off the clopidogrel and pentoxifylline. However, I advised her that would be up to the physicians at [facility]. These procedures will be scheduled for her at some point in the Fall. I do not think they need to be done sooner from a clinical standpoint based on no worrisome symptoms at the present time. I wanted to leave enough time for us to get information and ultimate clearance from all of her physicians at [facility]. She clearly has comorbidities including pulmonary issues, coronary artery disease, and cerebrovascular disease. I advised her to try to get clearance letters and summaries of her medical issues from the [facility] physician such that we can share them with the medical staff and anesthesiologist at [facility] prior to her procedures. If it turns out that her [facility] physicians do not think she is stable for these procedures we can always postpone them to a later date. Roman was comfortable with this plan. Thank you again for allowing me to participate in Roman's care. I shall continue to keep you advised of her progress. 02/08/2025 Anticoagulant long-term use (ICD-10 - Z79.01) Overall, Roman appears to be doing well and appears stable from a GI standpoint. She is presently not having any particularly new or worrisome GI complaints. Her main issue is obviously that of her scleroderma with multiple associated issues requiring multiple subspecialty care. In regard to her GI issues, the upper GI complaints of previous esophageal strictures, reflux, and esophageal dysmotility appear to be stable although she is taking Tums fairly frequently and currently reports that she is not taking any acid suppression otherwise. However, her medication list does have Protonix on it. I shall check to see if she is actually on that regularly and if so I will advise her to stay on it along with her Tums. If she is not on that PPI I would then send a prescription over for her since I think that would be acceptable to use along with her clopidogrel. However, I will advise her to speak with her stroke doctor at [facility] who prescribes her clopidogrel so as to be sure that is not contraindicated from their standpoint. I did recommend a follow-up upper endoscopy given the description of her previous endoscopies and recommendations from her dietetics director in [place], [place]. She is not having any particularly worrisome lower GI complaints at this time. Some of her irregular bowel movement pattern may certainly be related to irritable bowel syndrome but may also be associated with some GI motility disturbance in the intestinal tract from the scleroderma. I did recommend a colonoscopy for further screening given the reported history of multiple colonoscopies in the past with some showing polyps and her last exam being about 5 years ago. We did review the rationale for that in regard to colorectal cancer prevention. Full consent has been obtained from her for both procedures, including risks of bleeding and perforation. The procedures will be done with monitored anesthesia care. She was given the below recommendations for adjustment of her medications prior to the procedures, but was advised to speak with her [facility] physicians about those recommendations to be sure there is no contraindication to them. I advised her that she might need Lovenox for bridging while off the clopidogrel and pentoxifylline. However, I advised her that would be up to the physicians at [facility]. These procedures will be scheduled for her at some point in the Fall. I do not think they need to be done sooner from a clinical standpoint based on no worrisome symptoms at the present time. I wanted to leave enough time for us to get information and ultimate clearance from all of her physicians at [facility]. She clearly has comorbidities including pulmonary issues, coronary artery disease, and cerebrovascular disease. I advised her to try to get clearance letters and summaries of her medical issues from the [facility] physician such that we can share them with the medical staff and anesthesiologist at [facility] prior to her procedures. If it turns out that her [facility] physicians do not think she is stable for these procedures we can always postpone them to a later date. Roman was comfortable with this plan. Thank you again for allowing me to participate in Roman's care. I shall continue to keep you advised of her progress. 02/08/2025 Irregular bowel habits (ICD-10 - R19.8) Overall, Roman appears to be doing well and appears stable from a GI standpoint. She is presently not having any particularly new or worrisome GI complaints. Her main issue is obviously that of her scleroderma with multiple associated issues requiring multiple subspecialty care. In regard to her GI issues, the upper GI complaints of previous esophageal strictures, reflux, and esophageal dysmotility appear to be stable although she is taking Tums fairly frequently and currently reports that she is not taking any acid suppression otherwise. However, her medication list does have Protonix on it. I shall check to see if she is actually on that regularly and if so I will advise her to stay on it along with her Tums. If she is not on that PPI I would then send a prescription over for her since I think that would be acceptable to use along with her clopidogrel. However, I will advise her to speak with her stroke doctor at [facility] who prescribes her clopidogrel so as to be sure that is not contraindicated from their standpoint. I did recommend a follow-up upper endoscopy given the description of her previous endoscopies and recommendations from her dietetics director in [place], [place]. She is not having any particularly worrisome lower GI complaints at this time. Some of her irregular bowel movement pattern may certainly be related to irritable bowel syndrome but may also be associated with some GI motility disturbance in the intestinal tract from the scleroderma. I did recommend a colonoscopy for further screening given the reported history of multiple colonoscopies in the past with some showing polyps and her last exam being about 5 years ago. We did review the rationale for that in regard to colorectal cancer prevention. Full consent has been obtained from her for both procedures, including risks of bleeding and perforation. The procedures will be done with monitored anesthesia care. She was given the below recommendations for adjustment of her medications prior to the procedures, but was advised to speak with her [facility] physicians about those recommendations to be sure there is no contraindication to them. I advised her that she might need Lovenox for bridging while off the clopidogrel and pentoxifylline. However, I advised her that would be up to the physicians at [facility]. These procedures will be scheduled for her at some point in the Fall. I do not think they need to be done sooner from a clinical standpoint based on no worrisome symptoms at the present time. I wanted to leave enough time for us to get information and ultimate clearance from all of her physicians at [facility]. She clearly has comorbidities including pulmonary issues, coronary artery disease, and cerebrovascular disease. I advised her to try to get clearance letters and summaries of her medical issues from the [facility] physician such that we can share them with the medical staff and anesthesiologist at [facility] prior to her procedures. If it turns out that her [facility] physicians do not think she is stable for these procedures we can always postpone them to a later date. Roman was comfortable with this plan. Thank you again for allowing me to participate in Roman's care. I shall continue to keep you advised of her progress. 02/08/2025 GERD without esophagitis (ICD-10 - K21.9) Overall, Roman appears to be doing well and appears stable from a GI standpoint. She is presently not having any particularly new or worrisome GI complaints. Her main issue is obviously that of her scleroderma with multiple associated issues requiring multiple subspecialty care. In regard to her GI issues, the upper GI complaints of previous esophageal strictures, reflux, and esophageal dysmotility appear to be stable although she is taking Tums fairly frequently and currently reports that she is not taking any acid suppression otherwise. However, her medication list does have Protonix on it. I shall check to see if she is actually on that regularly and if so I will advise her to stay on it along with her Tums. If she is not on that PPI I would then send a prescription over for her since I think that would be acceptable to use along with her clopidogrel. However, I will advise her to speak with her stroke doctor at [facility] who prescribes her clopidogrel so as to be sure that is not contraindicated from their standpoint. I did recommend a follow-up upper endoscopy given the description of her previous endoscopies and recommendations from her dietetics director in [place], [place]. She is not having any particularly worrisome lower GI complaints at this time. Some of her irregular bowel movement pattern may certainly be related to irritable bowel syndrome but may also be associated with some GI motility disturbance in the intestinal tract from the scleroderma. I did recommend a colonoscopy for further screening given the reported history of multiple colonoscopies in the past with some showing polyps and her last exam being about 5 years ago. We did review the rationale for that in regard to colorectal cancer prevention. Full consent has been obtained from her for both procedures, including risks of bleeding and perforation. The procedures will be done with monitored anesthesia care. She was given the below recommendations for adjustment of her medications prior to the procedures, but was advised to speak with her [facility] physicians about those recommendations to be sure there is no contraindication to them. I advised her that she might need Lovenox for bridging while off the clopidogrel and pentoxifylline. However, I advised her that would be up to the physicians at [facility]. These procedures will be scheduled for her at some point in the Fall. I do not think they need to be done sooner from a clinical standpoint based on no worrisome symptoms at the present time. I wanted to leave enough time for us to get information and ultimate clearance from all of her physicians at [facility]. She clearly has comorbidities including pulmonary issues, coronary artery disease, and cerebrovascular disease. I advised her to try to get clearance letters and summaries of her medical issues from the [facility] physician such that we can share them with the medical staff and anesthesiologist at [facility] prior to her procedures. If it turns out that her [facility] physicians do not think she is stable for these procedures we can always postpone them to a later date. Roman was comfortable with this plan. Thank you again for allowing me to participate in Roman's care. I shall continue to keep you advised of her progress. 02/08/2025 Scleroderma of esophagus (ICD-10 - M34.1) Overall, Roman appears to be doing well and appears stable from a GI standpoint. She is presently not having any particularly new or worrisome GI complaints. Her main issue is obviously that of her scleroderma with multiple associated issues requiring multiple subspecialty care. In regard to her GI issues, the upper GI complaints of previous esophageal strictures, reflux, and esophageal dysmotility appear to be stable although she is taking Tums fairly frequently and currently reports that she is not taking any acid suppression otherwise. However, her medication list does have Protonix on it. I shall check to see if she is actually on that regularly and if so I will advise her to stay on it along with her Tums. If she is not on that PPI I would then send a prescription over for her since I think that would be acceptable to use along with her clopidogrel. However, I will advise her to speak with her stroke doctor at [facility] who prescribes her clopidogrel so as to be sure that is not contraindicated from their standpoint. I did recommend a follow-up upper endoscopy given the description of her previous endoscopies and recommendations from her dietetics director in [place], [place]. She is not having any particularly worrisome lower GI complaints at this time. Some of her irregular bowel movement pattern may certainly be related to irritable bowel syndrome but may also be associated with some GI motility disturbance in the intestinal tract from the scleroderma. I did recommend a colonoscopy for further screening given the reported history of multiple colonoscopies in the past with some showing polyps and her last exam being about 5 years ago. We did review the rationale for that in regard to colorectal cancer prevention. Full consent has been obtained from her for both procedures, including risks of bleeding and perforation. The procedures will be done with monitored anesthesia care. She was given the below recommendations for adjustment of her medications prior to the procedures, but was advised to speak with her [facility] physicians about those recommendations to be sure there is no contraindication to them. I advised her that she might need Lovenox for bridging while off the clopidogrel and pentoxifylline. However, I advised her that would be up to the physicians at [facility]. These procedures will be scheduled for her at some point in the Fall. I do not think they need to be done sooner from a clinical standpoint based on no worrisome symptoms at the present time. I wanted to leave enough time for us to get information and ultimate clearance from all of her physicians at [facility]. She clearly has comorbidities including pulmonary issues, coronary artery disease, and cerebrovascular disease. I advised her to try to get clearance letters and summaries of her medical issues from the [facility] physician such that we can share them with the medical staff and anesthesiologist at [facility] prior to her procedures. If it turns out that her [facility] physicians do not think she is stable for these procedures we can always postpone them to a later date. Roman was comfortable with this plan. Thank you again for allowing me to participate in Roman's care. I shall continue to keep you advised of her progress. Plan Of Treatment Medication Medication Name Sig Start Date Stop Date Notes Pantoprazole Sodium 40 MG 1 tablet 1/2 to 1 hour before morning meal Orally Once a day for 30 days 02/08/2025 Please remind the patient to speak with the physician prescribing her clopidogrel before she starts to use the pantoprazole Thanks very much Treatment Notes Assessment Notes Colon cancer screening Need names of you r [facility] doctors and we will need letters with summaries of your conditions to give our anesthesiologists Pending Test Test Name Order Date UPPER GI ENDOSCOPY 02/08/2025 COLONOSCOPY 02/08/2025 Next Appt Details Provider Name:Venkatesh Marsh , 06/01/2025 08:30:00 AM, [address] [place] [address] , [place], [place], [phone], Progress Notes * CAMILA TORRESOB:[birth year] (64 yo F)Acc No.[id number]:02/08/2025 Progress Notes Patient: ROMAN VEGA Provider: Sharonda Marsh MD :1960 A ge:64 Y S ex:Female Date:02/08/2025 Address:[address] [place] [address], [place], [place] Pcp:Jayant Walker Subjective: * Chief Complaints: * 1 . Patient presents today for a screening colon /upper. * HPI: i ncontinence: I saw Roman in consultation today in regard to further evaluation of her reported history of colon polyps with the need for colorectal cancer screening, as well as chronic gastroesophageal reflux with intermittent dysphagia in relation to her scleroderma and CREST syndrome. As you know, Roman is a 64-year-old female with a complicated history in relation to scleroderma and associated CREST syndrome. She had been living in [place], [place] and followed at [facility] until moving here about 1 or 2 years ago. She has now transferred all of that care to [facility] where they apparently have a scleroderma center as well. In regard to GI issues she describes some baseline irregular bowel movements ranging from some loose stool to constipation. She describes occasional bright red blood with a bowel movement. She denies any melena. She describes having had about 4 or 5 previous colonoscopies in [place]. She describes removal of polyps on at least some of those colonoscopies. She reports that her last colonoscopy was just before the pandemic in early 2019. She has been advised to have colonoscopies every 5 years for screening and surveillance. She reports that both parents had colon polyps, but denies any known family history of colorectal cancer, bowel disease, or celiac disease. She denies any issues with abdominal pain, jaundice, nor unintentional weight loss. She has also had some upper GI issues in relation to the CREST syndrome from her scleroderma. She describes having been told of esophageal dysmotility . She describes previous upper endoscopies with dilation of an esophageal stricture. She describes fairly frequent reflux for which she is presently using frequent Tums. She had been on omeprazole in the past but apparently that was stopped, although she is not entirely sure why. She is presently still having heartburn and only occasional dysphagia which is not problematic for her at this time. She reports being told by her physicians in [place] to have periodic upper endoscopies as well, although she cannot definitively recall whether or not she has Reardon's esophagus. Her last upper endoscopy was at same time time as her last colonoscopy in early 2019. She denies any tobacco nor alcohol use. She denies any NSAIDs use but is on one 81 mg aspirin daily. She is also on clopidogrel and pentoxifylline in regard to underlying cerebrovascular disease and atherosclerotic heart disease. Laboratories in October revealed a normal CBC, normal electrolytes, normal renal function, normal LFTs, and a normal hemoglobin A1c.. 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 She describes removal of polyps on some of them with her last one being in early 2019. 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 * Surgical History: T hyroidectomy/Parathyroidectomy , BTL . * Family History: F ather: , diagnosed with Colon polyps, Heart disease, Diabetes, HTN (hypertension).?Mother: , diagnosed with Heart disease, HTN (hypertension), Colon polyps. Mom and dad had colon polyps. No family history of liver cancer or colon cancer. * Social History: T obacco Use: T obacco Control (Standard) T obacco use: N onsmoker. M iscellaneous: M arital status: . Occupation: retired. D rug/Alcohol: A ATUL-C (Standard) D id you have a drink containing alcohol in the past year? N o,?Points 0 , I nterpretation N egative. * Medications: T aking Metoprolol Succinate ER 25 MG Tablet Extended Release 24 Hour Oral , Taking Mycophenolate Mofetil 250 MG Capsule TAKE 5 CAPSULES BY MOUTH TWICE A DAY Oral , Taking Gabapentin 400 MG Capsule TAKE 1 CAPSULE BY MOUTH 3 TIMES DAILY. Oral , Taking Levothyroxine Sodium 50 MCG Tablet TAKE 1 TABLET BY MOUTH EVERY DAY Oral , Taking Levothyroxine Sodium 50 MCG Tablet Oral , Taking amLODIPine Besy-Benazepril HCl 5-10 MG Capsule Oral , Taking Atorvastatin Calcium 80 MG Tablet Oral , Taking Albuterol Sulfate HFA 108 (90 Base) MCG/ACT Aerosol Solution INHALE 2 PUFFS INTO THE LUNGS EVERY 4 (FOUR) HOURS NEEDED FOR SHORTNESS OF BREATH Inhalation , Taking Albuterol Sulfate HFA 108 (90 Base) MCG/ACT Aerosol Solution Inhalation , Taking Silver sulfADIAZINE 1 % Cream APPLY TOPICALLY 2 TIMES A DAY FOR 10 DAYS APPLY A 1.5 MM THICKNESS. NEED INSURANCE External , Taking Metoprolol Succinate ER 25 MG Tablet Extended Release 24 Hour TAKE 1 TABLET BY MOUTH 2 TIMES A DAY FOR 90 DAYS Oral , Taking Clopidogrel Bisulfate 75 MG Tablet TAKE 1 TABLET BY MOUTH EVERY DAY Oral , Taking Fenofibrate 145 MG Tablet TAKE 1 TABLET BY MOUTH EVERY DAY Oral , Taking Budesonide-Formoterol Fumarate 160-4.5 MCG/ACT Aerosol INHALE 2 PUFFS INTO THE LUNGS TWICE A DAY Inhalation , Taking traMADol HCl 50 MG Tablet TAKE 1 TABLET BY MOUTH TWICE A DAY NEEDED FOR PAIN Oral , Taking Montelukast Sodium 10 MG Tablet TAKE 1 TABLET BY MOUTH EVERY DAY AT NIGHT Oral , Taking Ambien 10 MG Tablet 1 tablet at bedtime as needed Orally Once a day , Taking Aspirin 81 81 MG Tablet Delayed Release 1 tablet Orally Once a day , Taking Vitamin B Complex - Capsule as directed Orally , Taking Cetirizine HCl 10 MG Tablet 1 tablet Orally Once a day , Taking Diclofenac 1.25 % Patch 1 patch Externally Once a day , Taking levETIRAcetam 500 MG Tablet 1 tablet Orally every 12 hrs , Taking Lidocaine 5 % Patch 1 patch remove after 12 hours Externally Once a day , Taking Pentoxifylline ER 400 MG Tablet Extended Release 1 tablet with meals Orally Twice a day , Taking Protonix 40 MG Tablet Delayed Release 1 tablet 1/2 to 1 hour before morning meal Orally Once a day , Taking Ventolin HFA 108 (90 Base) MCG/ACT Aerosol Solution 1 puff as needed Inhalation every 4 hrs , Taking Vitamin B 12 500 MCG Tablet 1 tablet Orally Once a day * Allergies: P enicillin, Morphine. Objective: * Vitals: W t: 222.4 lbs, Ht: 68 in, BMI:33.81Index, BP: 001/01 mm Hg, Temp: 98.0, Ht-cm: 172.72, Wt-k.88. Assessment: * Assessment: 1. H istory of colon polyps - Z86.0100 (Primary) 2 . C olon cancer screening - Z12.11 3 . A nticoagulant long-term use - Z79.01 4 . I rregular bowel habits - R19.8 5 . G ERD without esophagitis - K21.9 ?6. S cleroderma of esophagus - M34.1 Overall, Roman appears to be doing well and appears stable from a GI standpoint. She is presently not having any particularly new or worrisome GI complaints. Her main issue is obviously that of her scleroderma with multiple associated issues requiring multiple subspecialty care. In regard to her GI issues, the upper GI complaints of previous esophageal strictures, reflux, and esophageal dysmotility appear to be stable although she is taking Tums fairly frequently and currently reports that she is not taking any acid suppression otherwise. However, her medication list does have Protonix on it. I shall check to see if she is actually on that regularly and if so I will advise her to stay on it along with her Tums. If she is not on that PPI I would then send a prescription over for her since I think that would be acceptable to use along with her clopidogrel. However, I will advise her to speak with her stroke doctor at [facility] who prescribes her clopidogrel so as to be sure that is not contraindicated from their standpoint. I did recommend a follow-up upper endoscopy given the description of her previous endoscopies and recommendations from her dietetics director in [place], [place]. She is not having any particularly worrisome lower GI complaints at this time. Some of her irregular bowel movement pattern may certainly be related to irritable bowel syndrome but may also be associated with some GI motility disturbance in the intestinal tract from the scleroderma. I did recommend a colonoscopy for further screening given the reported history of multiple colonoscopies in the past with some showing polyps and her last exam being about 5 years ago. We did review the rationale for that in regard to colorectal cancer prevention. Full consent has been obtained from her for both procedures, including risks of bleeding and perforation. The procedures will be done with monitored anesthesia care. She was given the below recommendations for adjustment of her medications prior to the procedures, but was advised to speak with her [facility] physicians about those recommendations to be sure there is no contraindication to them. I advised her that she might need Lovenox for bridging while off the clopidogrel and pentoxifylline. However, I advised her that would be up to the physicians at [facility]. These procedures will be scheduled for her at some point in the Fall. I do not think they need to be done sooner from a clinical standpoint based on no worrisome symptoms at the present time. I wanted to leave enough time for us to get information and ultimate clearance from all of her physicians at [facility]. She clearly has comorbidities including pulmonary issues, coronary artery disease, and cerebrovascular disease. I advised her to try to get clearance letters and summaries of her medical issues from the [facility] physician such that we can share them with the medical staff and anesthesiologist at [facility] prior to her procedures. If it turns out that her [facility] physicians do not think she is stable for these procedures we can always postpone them to a later date. Roman was comfortable with this plan. Thank you again for allowing me to participate in Roman's care. I shall continue to keep you advised of her progress. Plan: * Treatment: ?Procedure: COLONOSCOPY* with MAC and a PAT. Do not t laureen aspirin on the morning of the colonoscopy. Stop the Clopidogrel and Trental for 3 days before the colonoscopy if OK with the [facility] stroke doctor 2.?Colon cancer screening?Procedure: COLONOSCOPY* with MAC and a PAT. Do not t laureen aspirin on the morning of the colonoscopy. Stop the Clopidogrel and Trental for 3 days before the colonoscopy if OK with the [facility] stroke doctor Notes: Need names of your [facility] doctors and we will need letters with summaries of your conditions to give our anesthesiologists?? * Procedure Codes: 4 5378 DIAGNOSTIC COLONOSCOPY, 26006 UPPR GI ENDOSCOPY, DIAGNOSIS * Preventive Medicine: Counseling: C are goal follow-up plan: A lita Normal BMI Follow-up D ietary management education, guidance, and counseling, B [place] management provided Y es. * * The named appointment provid er may or may not be the originator of this progress note, and it is not deemed complete until electronically signed by the appointment provider. Sign off status: Pending * Provider: Sharonda Marsh MD Date: 0 02/08/2025 Generated for Sommer francis/Elvia/Mercyitting on: 0 02/15/2025 10:56 AM EDT
--- NOTE | 2025-02-15 10:49 | MHC.PC.OV ---
Vital Signs 02/15/25 10:54 Height 5 ft 8 in Weight 225 lb BMI 34.2 BP 126/64 Blood Pressure Location Lt brachial Position Sitting Respiration 14 Pulse 57 Pulse Source Pulse Oximeter Temp 97.7 F Temp Source Oral Pulse Oximetry (%) 97 Oxygen Delivery Method Room Air Intake Visit Reasons: f/u HTN, chronic conditions Intake Note: patient is scheduled for htn follow up Litigation Manager Required: No Allergies Penicillins Allergy (Severe, Verified 02/15/25 10:53) Anaphylaxis morphine Adverse Reaction (Intermediate, Verified 02/15/25 10:53) Confusion Medication List - Last Reconciled 02/15/25 by Jayant Walker MD albuterol sulfate 2.5 mg continuous nebulization albuterol sulfate 90 mcg/actuation inhalation amlodipine-benazepril 5-10 mg 1 cap PO DAILY atorvastatin 80 mg PO DAILY budesonide 0.5 mg inhalation budesonide-formoterol 160-4.5 mcg/actuation inhalation cephalexin 500 mg PO Q12H 10 days clindamycin phosphate 1% 1 appl topical DAILY 30 days clopidogrel 75 mg PO DAILY cyanocobalamin (vitamin B-12) 1,000 mcg IM fenofibrate nanocrystallized mg PO DAILY gabapentin 400 mg PO 3XD levetiracetam mg PO levothyroxine 200 mcg PO DAILY levothyroxine 50 mcg PO DAILY lidocaine 5% topical metoprolol succinate ER 25 mg PO BID 90 days montelukast 10 mg PO DAILY mycophenolate mofetil mg PO silver sulfadiazine 1% (Silvadene) 1 appl topical BID 10 days syringe with needle, safety (BD Integra Syringe) As directed tramadol 50 mg PO zolpidem 10 mg PO Tobacco use date assessed: 10/07/24 Dental Screening Dental Screen Date: 10/07/24 HPI f/u HTN, chronic conditions HPI Details 64 y/o female presents to f/u HTN, chronic conditions. Blood pressure today 126/64, 57p. She is on amlodipine-benazepril 5-10mg, metoprolol 25mg b.i.d. Labs drawn 10/10/24 at an outside lab. A1c 5.5%. TSH low at 0.155 uIU/mL. Reports ongoing chronic pain. [facility] Family History (Updated 10/07/24 @ 15:41 by DAYANA Sigala) Maternal Grandmother FH: mental illness Brother FH: mental illness Sister FH: mental illness Father FH: mental illness Social History (Updated 10/07/24 @ 15:42 by Kris Hammond [facility] Housing: Apartment Patient Tobacco Use Status: Never used Tobacco e-Cigarette/Vaping Use: Never Used Second Hand Smoke Exposure: No Substance Use Type: Other service: No Current occupational status: retired Current occupational exposures/hazards: No Cognitive needs: Yes (aphasia ) Hearing needs: No Vision needs: Yes Questionnaire Thrive Questionnaire Date Thrive assessed: 10/07/24 I am a: Patient What is your living situation today?: I have a steady place to live Within the past 12 months, did the food you bought not last and you didn't have the money to get more?: Sometimes True Within the past 12 months, did you worry whether your food would run out before you got money to buy more?: Sometimes True Do you have trouble paying for medicines?: Yes Do you have trouble getting transportation to medical appointments?: Yes Do you have trouble paying your heating and electricity bill?: No Do you have trouble taking care of your child, family member or friend?: No Do you have trouble with day-to-day activities such as bathing, preparing meals, shopping, managing finances, etc.?: Yes Are you currently unemployed and looking for a job?: No Are you interested in more education?: Yes THRIVE Score: 3 FLEX-7 AMB Questionnaire FLEX-7 Date FLEX - 7 assessed: 10/07/24 Source: Developed by Drs. Venkatesh Acuna, Kay Garcia, Kings Rooney and colleagues, with an educational haim from [employer]. Review of Systems Const Denies chills, Denies fatigue, Denies fever(s), Denies headache(s) and Denies weakness ENT Denies dizziness and Denies headache(s) Card Denies dyspnea Resp Denies cough, Denies dyspnea, Denies wheezing and Denies other (shortness of breath) Musc Denies numbness and Denies tingling Neuro Denies dizziness, Denies headache(s), Denies numbness, Denies tingling and Denies weakness Psych Denies anxiety and Denies depression Endo Denies fatigue Aller/Immun Denies wheezing Physical exam (Primary Care) Vital Signs: Last Vital Signs Temp 97.7 F 02/15/25 10:54 Pulse 57 02/15/25 10:54 Resp 14 02/15/25 10:54 BP 126/64 02/15/25 10:54 Pulse Ox 97 02/15/25 10:54 Oxygen Delivery Method Room Air 02/15/25 10:54 BMI result Body Mass Index 34.2 Tobacco/Smoking Status: Tobacco use Status Tobacco use date assessed 10/07/24 02/15/25 10:57 Patient Tobacco Use Status Never used Tobacco 02/15/25 10:57 e-Cigarette/Vaping Use Never Used 02/15/25 10:57 Thrive Assessment: Date of Thrive Assessment Date Thrive assessed 10/07/24 02/15/25 10:57 Const General: well developed; No acute distress Nutritional Appearance: well nourished Orientation/consciousness: patient oriented x3 HENMT Head: Yes normocephalic and Yes atraumatic Eyes General: appearance normal, both eyes and all related structures Pupils: Equal, round and reactive pupils present EOM: EOMs intact bilaterally Resp Effort & Inspection: normal respiratory effort Neuro General: patient oriented x3 and gait normal Cranial nerves: Yes Equal, round and reactive pupils present Psych Affect: normal affect Coding Level of Care Code Est Pt Level 5 (26427) Diagnoses Hypertension, unspecified type I10 Hypertension type: unspecified History of CVA (cerebrovascular accident) Z86.73 Hypothyroidism, unspecified type E03.9 Hypothyroidism type: unspecified Folliculitis L73.9 Chronic pain G89.29 Assessment & Plan Assessment & Plan (1) Hypertension: Code(s): I10 - Essential (primary) hypertension Category: Medical Qualifiers: Hypertension type: unspecified Qualified Code(s): I10 - Essential (primary) hypertension Plan: Blood pressure is controlled. Goal is less than 130/80 Continue current medication (2) History of CVA (cerebrovascular accident): Code(s): Z86.73 - Personal history of transient ischemic attack (TIA), and cerebral infarction without residual deficits Category: Medical Plan: Stable She is on clopidogrel and atorvastatin. Follow-up with neurologist as recommended Will send script for clopidogrel (3) Hypothyroidism: Code(s): E03.9 - Hypothyroidism, unspecified Category: Medical Qualifiers: Hypothyroidism type: unspecified Qualified Code(s): E03.9 - Hypothyroidism, unspecified Plan: Due to recheck her thyroid hormone levels Ordered We can follow-up by telemedicine in a few weeks (4) Folliculitis: Code(s): L73.9 - Follicular disorder, unspecified Category: Medical Plan: History of scleroderma She is on mycophenolate and is somewhat immune suppressed Will give her another script for cephalexin but we did discuss that it would be preferable to have on other medications besides oral medications for the folliculitis. For now, will send script for cephalexin and will also try to get her a script for clindamycin gel. Referring her to Dermatology further management (5) Chronic pain: Code(s): G89.29 - Other chronic pain Category: Medical Plan: Chronic joint pain and history of scleroderma She has been on tramadol, long-term and agrees to pain management agreement/contract. Will assume management of her tramadol She use as needed Plan She can follow-up by telemedicine in 3-4 weeks to review lab work for hypothyroidism and elevated fasting blood sugars. Now managing tramadol for chronic pain and I have ordered urine screening. Orders: Orders TSH reflex Free T4 Today L73.9 - Follicular disorder, unspecified, Z00.00 - Encounter for general adult medical examination without abnormal findings UA CC w/rflx Micro + Cult Today L73.9 - Follicular disorder, unspecified, Z00.00 - Encounter for general adult medical examination without abnormal findings Free T4 (Free Thyroxine) Today E03.9 - Hypothyroidism, unspecified, L73.9 - Follicular disorder, unspecified Triiodothyronine T3 Total Today E03.9 - Hypothyroidism, unspecified, L73.9 - Follicular disorder, unspecified Hemoglobin A1c Today L73.9 - Follicular disorder, unspecified, R73.01 - Impaired fasting glucose Drug Screen Urine Today G89.29 - Other chronic pain Tramadol Ur GC/MS Today G89.29 - Other chronic pain Comprehensive Met. Panel Today I10 - Essential (primary) hypertension Referrals Dermatology Referral L73.9 - Follicular disorder, unspecified, M34.9 - Systemic sclerosis, unspecified, R21 - Rash and other nonspecific skin eruption Medications: New clindamycin phosphate 1% 1 appl topical DAILY 60 grams 2RF 30 days Refilled cephalexin 500 mg PO Q12H 20 caps 0RF 10 days L73.9 - Follicular disorder, unspecified
[2025-02-15 10:54] VITALS: BP 126/64; PULSE 57; RESP 14; TEMP 36.5; O2SAT 97; BMI 34.2
--- OUTSIDE RECORDS SUMMARY | 2025-02-15 10:56 | XMS_ITS | Encounter Summary ---
Author Organization [facility] Address [address] [place] [address] Care Team Providers Care Lead Game Designer Name Role Phone Sal Jose MD Primary Care Provider Encounter Details Date Type Department Care Team (Late st Contact Info) Description 08/13/2023 Scanned Document EXTERNAL REFERRAL SOURCE [address] [place] [address] External, Provider Social History Tobacco Use Types [...] EDT Follow Up Pulmonary Critical [place] [address] [address] Ramon Nixon MD [address] [place] [address] [address] [place] [id number] 04/28/2025 1:45 PM EDT Office Visit Stroke [address] [place] [address] Kristine Kelly MD PhD [address] [place] [phone] 05/04/2025 1:00 PM EDT Follow Up Cardiovascular Medicine at 175 [facility] [address] [place], [place] [address] Mike Hilario MD 175 [facility] [address] [place] [phone] 06/22/2025 2:00 PM EST Office Visit Epilepsy & Seizures at 800 [facility] 800 [facility] [place], [place] [address] Virgie Mast MD PhD [address] [place] [phone] documented as of this encounter Visit Diagnoses Not on filedocumented in this encounter Care Teams Lead Game Designer Relationship Specialty Start Date End Date Sal Jose MD [address] [place] [phone] PCP - General Family Medicine 10/16/23 documented as of this encounter
--- OUTSIDE RECORDS SUMMARY | 2025-02-15 10:57 | XMS_ITS ---
Author Name [facility] Organization Unknown Results Test Name/Text Value Interpretation Date Range Source AST/ALT SerPl-cRto 0.9 Normal 07/23/2024 - [facility] Glucose SerPl-mCnc 89.0 mg/dL Normal 07/23/2024 70 - 100 [facility] Prot SerPl-mCnc 6.7 g/dL Normal 07/23/2024 5.9 - 8.3 [facility] Potassium SerPl-sCnc 4.2 mmol/L Normal 07/23/2024 3.3 - 5 .3 [facility] GFR/BSA.pred SerPlBld URH-TTJ-AzIXff >60.0 mL/min/1.73m2 Normal 07/23/2024 - [facility] ALP SerPl-cCnc 113.0 U/L Normal 07/23/2024 9 - 122 [facility] Anion Gap3 SerPl-sCnc 13.0 Normal 07/23/2024 7 - 17 [facility] AST SerPl w P-5'-P-cCnc 23.0 U/L Normal 07/23/2024 10 - 35 [facility] BUN SerPl-mCnc 13.0 mg/dL Normal 07/23/2024 8 - 23 [facility] Albumin/Glob SerPl 1.8 Normal 07/23/2024 1 - 2.2 [facility] Globulin Plas-mCnc 2.4 g/dL Normal 07/23/2024 2 - 3.9 [facility] BUN/Creat SerPl 18.1 Normal 07/23/2024 8 - 23 [facility] Sodium SerPl-sCnc 144.0 mmol/L Normal 07/23/2024 136 - 14 4 [facility] Albumin SerPl BCG-mCnc 4.3 g/dL Normal 07/23/2024 3.6 - 5.1 [facility] Creat SerPl-mCnc 0.72 mg/dL Normal 07/23/2024 0.4 - 1.3 [facility] HCO3 SerPl-sCnc 26.0 mmol/L Normal 07/23/2024 20 - 30 [facility] ALT SerPl w/o P-5'-P-cCnc 27.0 U/L Normal 07/23/2024 10 - 35 [facility] Bilirub SerPl-mCnc 0.6 mg/dL Normal 07/23/2024 - [facility] Chloride SerPl-sCnc 105.0 mmol/L Normal 07/23/2024 98 - 1 07 [facility] Calcium SerPl-mCnc 9.7 mg/dL Normal 07/23/2024 8.8 - 10.2 [facility] BKR CREATININE DELTA 0.01 Normal 07/23/2024 - [facility] ESR Bld Qn 12.0 mm/hr Normal 07/23/2024 0 - 20 [facility] Hct VFr Bld Auto 38.7 % Normal 07/23/2024 35 - 45 [facility] Imm Granulocytes # Bld Auto 0.03 x 1000/uL Normal 07/23/2024 0 - 0.3 [facility] RBC # Bld Auto 4.25 M/uL Normal 07/23/2024 4 - 6 [facility] Eosinophil/leuk NFr Bld Auto 1.8 % Normal 07/23/2024 0 - 5 [facility] Basophils/leuk NFr Bld Auto 0.8 % Normal 07/23/2024 0 - 1.4 [facility] Eosinophil # Bld Auto 0.14 x 1000/uL Normal 07/23/2024 0 - 1 [facility] Neutrophils # Bld Auto 4.75 x 1000/uL Normal 07/23/2024 2 - 7.6 [facility] Platelet # Bld Auto 276.0 x1000/uL Normal 07/23/2024 150 - 420 [facility] Monocytes # Bld Auto 0.62 x 1000/uL Normal 07/23/2024 0 - 1 [facility] MCH RBC Qn Auto 29.9 pg Normal 07/23/2024 27 - 33 [facility] WBC # Bld Auto 7.7 x1000/uL Normal 07/23/2024 4 - 11 [facility] Neutrophils/leuk NFr Bld Auto 61.4 % Normal 07/23/2024 39 - 72 [facility] Basophils # Bld Auto 0.06 x 1000/uL Normal 07/23/2024 0 - 1 [facility] nRBC/100 WBC Bld Auto-Rto 0.0 % Normal 07/23/2024 0 - 1 [facility] Hgb Bld-mCnc 12.7 g/dL Normal 07/23/2024 11.7 - 15.5 [facility] MCV RBC Auto 91.1 fL Normal 07/23/2024 80 - 100 [facility] T MCHC RBC Auto-mCnc 32.8 g/dL Normal 07/23/2024 31 - 36 [facility] Lymphocytes/leuk NFr Bld Auto 27.6 % Normal 07/23/2024 17 - 50 [facility] PMV Bld Auto 11.1 fL Normal 07/23/2024 8 - 12 [facility] T RDW RBC Auto-Rto 14.0 % Normal 07/23/2024 11 - 15 [facility] Monocytes/leuk NFr Bld Auto 8.0 % Normal 07/23/2024 4 - 12 [facility] Imm Granulocytes/leuk NFr Bld Auto 0.4 % Normal 07/23/2024 0 - 1 [facility] Lymphocytes # Bld Auto 2.13 x 1000/uL Normal 07/23/2024 0.6 - 3.7 [facility] nRBC # Bld Auto 0.0 x 1000/uL Normal 07/23/2024 0 - 1 [facility] GFR/BSA.pred SerPlBld VLM-CKV-YuVUez >60.0 mL/min/1.73m2 Normal 05/20/2024 - [facility] Prot SerPl-mCnc 6.8 g/dL Normal 05/20/2024 5.9 - 8.3 [facility] Calcium SerPl-mCnc 9.7 mg/dL Normal 05/20/2024 8.8 - 10.2 [facility] Chloride SerPl-sCnc 106.0 mmol/L Normal 05/20/2024 98 - 1 07 [facility] HCO3 SerPl-sCnc 26.0 mmol/L Normal 05/20/2024 20 - 30 [facility] Anion Gap3 SerPl-sCnc 12.0 Normal 05/20/2024 7 - 17 [facility] Glucose SerPl-mCnc 94.0 mg/dL Normal 05/20/2024 70 - 100 [facility] AST SerPl w P-5'-P-cCnc 19.0 U/L Normal 05/20/2024 10 - 35 [facility] BUN SerPl-mCnc 12.0 mg/dL Normal 05/20/2024 8 - 23 [facility] Albumin/Glob SerPl 1.7 Normal 05/20/2024 1 - 2.2 [facility] Creat SerPl-mCnc 0.71 mg/dL Normal 05/20/2024 0.4 - 1.3 [facility] Sodium SerPl-sCnc 144.0 mmol/L Normal 05/20/2024 136 - 14 4 [facility] ALT SerPl w/o P-5'-P-cCnc 17.0 U/L Normal 05/20/2024 10 - 35 [facility] Bilirub SerPl-mCnc 0.5 mg/dL Normal 05/20/2024 - [facility] Albumin SerPl BCG-mCnc 4.3 g/dL Normal 05/20/2024 3.6 - 5.1 [facility] ALP SerPl-cCnc 109.0 U/L Normal 05/20/2024 9 - 122 [facility] Globulin Plas-mCnc 2.5 g/dL Normal 05/20/2024 2 - 3.9 [facility] Potassium SerPl-sCnc 4.2 mmol/L Normal 05/20/2024 3.3 - 5 .3 [facility] AST/ALT SerPl-cRto 1.1 Normal 05/20/2024 - [facility] BUN/Creat SerPl 16.9 Normal 05/20/2024 8 - 23 [facility] ESR Bld Qn 4.0 mm/hr Normal 05/20/2024 0 - 20 [facility] MCH RBC Qn Auto 29.0 pg Normal 05/20/2024 27 - 33 [facility] Basophils # Bld Auto 0.05 x 1000/uL Normal 05/20/2024 0 - 1 [facility] nRBC # Bld Auto 0.0 x 1000/uL Normal 05/20/2024 0 - 1 [facility] Lymphocytes/leuk NFr Bld Auto 27.3 % Normal 05/20/2024 17 - 50 [facility] nRBC/100 WBC Bld Auto-Rto 0.0 % Normal 05/20/2024 0 - 1 [facility] Eosinophil/leuk NFr Bld Auto 2.0 % Normal 05/20/2024 0 - 5 [facility] RBC # Bld Auto 4.51 M/uL Normal 05/20/2024 4 - 6 [facility] Monocytes/leuk NFr Bld Auto 9.7 % Normal 05/20/2024 4 - 12 [facility] Basophils/leuk NFr Bld Auto 0.7 % Normal 05/20/2024 0 - 1.4 [facility] MCV RBC Auto 90.9 fL Normal 05/20/2024 80 - 100 [facility] T Platelet # Bld Auto 255.0 x1000/uL Normal 05/20/2024 150 - 420 [facility] RDW RBC Auto-Rto 13.7 % Normal 05/20/2024 11 - 15 [facility] Lymphocytes # Bld Auto 2.02 x 1000/uL Normal 05/20/2024 0.6 - 3.7 [facility] Neutrophils/leuk NFr Bld Auto 60.0 % Normal 05/20/2024 39 - 72 [facility] PMV Bld Auto 10.7 fL Normal 05/20/2024 8 - 12 [facility] T Imm Granulocytes # Bld Auto 0.02 x 1000/uL Normal 05/20/2024 0 - 0.3 [facility] Eosinophil # Bld Auto 0.15 x 1000/uL Normal 05/20/2024 0 - 1 [facility] Imm Granulocytes/leuk NFr Bld Auto 0.3 % Normal 05/20/2024 0 - 1 [facility] Monocytes # Bld Auto 0.72 x 1000/uL Normal 05/20/2024 0 - 1 [facility] MCHC RBC Auto-mCnc 32.0 g/dL Normal 05/20/2024 31 - 36 [facility] WBC # Bld Auto 7.4 x1000/uL Normal 05/20/2024 4 - 11 [facility] Hct VFr Bld Auto 41.0 % Normal 05/20/2024 35 - 45 [facility] Neutrophils # Bld Auto 4.44 x 1000/uL Normal 05/20/2024 2 - 7.6 [facility] Hgb Bld-mCnc 13.1 g/dL Normal 05/20/2024 11.7 - 15.5 [facility] Sodium SerPl-sCnc 142.0 mmol/L Normal 04/15/2024 136 - 14 4 [facility] AST/ALT SerPl-cRto 1.3 Normal 04/15/2024 - [facility] Glucose SerPl-mCnc 99.0 mg/dL Normal 04/15/2024 70 - 100 [facility] Calcium SerPl-mCnc 9.5 mg/dL Normal 04/15/2024 8.8 - 10.2 [facility] Albumin/Glob SerPl 1.5 Normal 04/15/2024 1 - 2.2 [facility] GFR/BSA.pred SerPlBld PRB-BOQ-NoADmr >60.0 mL/min/1.73m2 Normal 04/15/2024 - [facility] Bilirub SerPl-mCnc 0.5 mg/dL Normal 04/15/2024 - [facility] Chloride SerPl-sCnc 105.0 mmol/L Normal 04/15/2024 98 - 1 07 [facility] Albumin SerPl BCG-mCnc 4.2 g/dL Normal 04/15/2024 3.6 - 5.1 [facility] Globulin Plas-mCnc 2.8 g/dL Normal 04/15/2024 2 - 3.9 [facility] HCO3 SerPl-sCnc 24.0 mmol/L Normal 04/15/2024 20 - 30 [facility] Prot SerPl-mCnc 7.0 g/dL Normal 04/15/2024 5.9 - 8.3 [facility] AST SerPl w P-5'-P-cCnc 23.0 U/L Normal 04/15/2024 10 - 35 [facility] ALT SerPl w/o P-5'-P-cCnc 18.0 U/L Normal 04/15/2024 10 - 35 [facility] Creat SerPl-mCnc 0.71 mg/dL Normal 04/15/2024 0.4 - 1.3 [facility] Anion Gap3 SerPl-sCnc 13.0 Normal 04/15/2024 7 - 17 [facility] BUN SerPl-mCnc 9.0 mg/dL Normal 04/15/2024 8 - 23 [facility] BUN/Creat SerPl 12.7 Normal 04/15/2024 8 - 23 [facility] ALP SerPl-cCnc 105.0 U/L Normal 04/15/2024 9 - 122 [facility] Potassium SerPl-sCnc 3.8 mmol/L Normal 04/15/2024 3.3 - 5 .3 [facility] CRP SerPl HS-mCnc 3.1 mg/L Above high normal 04/15/2024 - [facility] ESR Bld Qn 24.0 mm/hr Above high normal 04/15/2024 0 - 20 [facility] Hgb Bld-mCnc 13.3 g/dL Normal 04/15/2024 11.7 - 15.5 [facility] Lymphocytes/leuk NFr Bld Auto 24.4 % Normal 04/15/2024 17 - 50 [facility] Monocytes # Bld Auto 0.72 x 1000/uL Normal 04/15/2024 0 - 1 [facility] Monocytes/leuk NFr Bld Auto 9.7 % Normal 04/15/2024 4 - 12 [facility] PMV Bld Auto 10.9 fL Normal 04/15/2024 8 - 12 [facility] T RDW RBC Auto-Rto 13.6 % Normal 04/15/2024 11 - 15 [facility] Eosinophil # Bld Auto 0.18 x 1000/uL Normal 04/15/2024 0 - 1 [facility] RBC # Bld Auto 4.62 M/uL Normal 04/15/2024 4 - 6 [facility] MCV RBC Auto 90.3 fL Normal 04/15/2024 80 - 100 [facility] T Lymphocytes # Bld Auto 1.82 x 1000/uL Normal 04/15/2024 0.6 - 3.7 [facility] Neutrophils/leuk NFr Bld Auto 62.6 % Normal 04/15/2024 39 - 72 [facility] Eosinophil/leuk NFr Bld Auto 2.4 % Normal 04/15/2024 0 - 5 [facility] Neutrophils # Bld Auto 4.67 x 1000/uL Normal 04/15/2024 2 - 7.6 [facility] Imm Granulocytes # Bld Auto 0.01 x 1000/uL Normal 04/15/2024 0 - 0.3 [facility] Hct VFr Bld Auto 41.7 % Normal 04/15/2024 35 - 45 [facility] nRBC # Bld Auto 0.0 x 1000/uL Normal 04/15/2024 0 - 1 [facility] Basophils # Bld Auto 0.06 x 1000/uL Normal 04/15/2024 0 - 1 [facility] MCHC RBC Auto-mCnc 31.9 g/dL Normal 04/15/2024 31 - 36 [facility] nRBC/100 WBC Bld Auto-Rto 0.0 % Normal 04/15/2024 0 - 1 [facility] WBC # Bld Auto 7.5 x1000/uL Normal 04/15/2024 4 - 11 [facility] Granulocytes/leuk NFr Bld Auto 0.1 % Normal 04/15/2024 0 - 1 [facility] Platelet # Bld Auto 272.0 x1000/uL Normal 04/15/2024 150 - 420 [facility] MCH RBC Qn Auto 28.8 pg Normal 04/15/2024 27 - 33 [facility] Basophils/leuk NFr Bld Auto 0.8 % Normal 04/15/2024 0 - 1.4 [facility] CRP SerPl HS-mCnc 6.3 mg/L Above high normal 03/17/2024 - [facility] Anion Gap3 SerPl-sCnc 13.0 Normal 03/17/2024 7 - 17 [facility] GFR/BSA.pred SerPlBld PZM-EEF-LbNNsy >60.0 mL/min/1.73m2 Normal 03/17/2024 - [facility] Globulin Plas-mCnc 3.2 g/dL Normal 03/17/2024 2 - 3.9 [facility] Potassium SerPl-sCnc 4.3 mmol/L Normal 03/17/2024 3.3 - 5 .3 [facility] AST SerPl w P-5'-P-cCnc 17.0 U/L Normal 03/17/2024 10 - 35 [facility] Prot SerPl-mCnc 7.5 g/dL Normal 03/17/2024 5.9 - 8.3 [facility] Sodium SerPl-sCnc 141.0 mmol/L Normal 03/17/2024 136 - 14 4 [facility] ALT SerPl w/o P-5'-P-cCnc 16.0 U/L Normal 03/17/2024 10 - 35 [facility] Albumin/Glob SerPl 1.3 Normal 03/17/2024 1 - 2.2 [facility] Albumin SerPl BCG-mCnc 4.3 g/dL Normal 03/17/2024 3.6 - 5.1 [facility] AST/ALT SerPl-cRto 1.1 Normal 03/17/2024 - [facility] Glucose SerPl-mCnc 107.0 mg/dL Above high normal 03/17/2024 70 - 100 [facility] ALP SerPl-cCnc 122.0 U/L Normal 03/17/2024 9 - 122 [facility] BUN/Creat SerPl 20.0 Normal 03/17/2024 8 - 23 [facility] Creat SerPl-mCnc 0.75 mg/dL Normal 03/17/2024 0.4 - 1.3 [facility] Calcium SerPl-mCnc 9.7 mg/dL Normal 03/17/2024 8.8 - 10.2 [facility] HCO3 SerPl-sCnc 25.0 mmol/L Normal 03/17/2024 20 - 30 [facility] Bilirub SerPl-mCnc 0.5 mg/dL Normal 03/17/2024 - [facility] Chloride SerPl-sCnc 103.0 mmol/L Normal 03/17/2024 98 - 1 07 [facility] BUN SerPl-mCnc 15.0 mg/dL Normal 03/17/2024 8 - 23 [facility] ESR Bld Qn 23.0 mm/hr Above high normal 03/17/2024 0 - 20 [facility] Monocytes # Bld Auto 0.59 x 1000/uL Normal 03/17/2024 0 - 1 [facility] RDW RBC Auto-Rto 13.7 % Normal 03/17/2024 11 - 15 [facility] Basophils/leuk NFr Bld Auto 0.8 % Normal 03/17/2024 0 - 1.4 [facility] Lymphocytes/leuk NFr Bld Auto 19.3 % Normal 03/17/2024 17 - 50 [facility] Platelet # Bld Auto 285.0 x1000/uL Normal 03/17/2024 150 - 420 [facility] MCV RBC Auto 90.0 fL Normal 03/17/2024 80 - 100 [facility] T Lymphocytes # Bld Auto 1.54 x 1000/uL Normal 03/17/2024 0.6 - 3.7 [facility] Eosinophil/leuk NFr Bld Auto 1.5 % Normal 03/17/2024 0 - 5 [facility] nRBC/100 WBC Bld Auto-Rto 0.0 % Normal 03/17/2024 0 - 1 [facility] WBC # Bld Auto 8.0 x1000/uL Normal 03/17/2024 4 - 11 [facility] Imm Granulocytes # Bld Auto 0.03 x 1000/uL Normal 03/17/2024 0 - 0.3 [facility] Neutrophils # Bld Auto 5.65 x 1000/uL Normal 03/17/2024 2 - 7.6 [facility] Eosinophil # Bld Auto 0.12 x 1000/uL Normal 03/17/2024 0 - 1 [facility] MCHC RBC Auto-mCnc 32.1 g/dL Normal 03/17/2024 31 - 36 [facility] nRBC # Bld Auto 0.0 x 1000/uL Normal 03/17/2024 0 - 1 [facility] Monocytes/leuk NFr Bld Auto 7.4 % Normal 03/17/2024 4 - 12 [facility] Imm Granulocytes/leuk NFr Bld Auto 0.4 % Normal 03/17/2024 0 - 1 [facility] Hgb Bld-mCnc 13.3 g/dL Normal 03/17/2024 11.7 - 15.5 [facility] MCH RBC Qn Auto 28.9 pg Normal 03/17/2024 27 - 33 [facility] RBC # Bld Auto 4.6 M/uL Normal 03/17/2024 4 - 6 [facility] Neutrophils/leuk NFr Bld Auto 70.6 % Normal 03/17/2024 39 - 72 [facility] Basophils # Bld Auto 0.06 x 1000/uL Normal 03/17/2024 0 - 1 [facility] Hct VFr Bld Auto 41.4 % Normal 03/17/2024 35 - 45 [facility] PMV Bld Auto 11.2 fL Normal 03/17/2024 8 - 12 [facility] T BKR DRUGS OF ABUSE NOTE Normal 03/08/2024 [facility] BKR BUPRENORPHINE SCREEN Negative Normal 03/08/2024 - [facility] Barbiturates Ur Ql Scn Negative Normal 03/08/2024 - [facility] BZE Ur Ql Scn Negative Normal 03/08/2024 - [facility] Benzodiaz Ur Ql Scn Negative Normal 03/08/2024 - [facility] Opiates Ur Ql Scn Negative Normal 03/08/2024 - [facility] PCP Ur Ql Scn>25 ng/mL Negative Normal 03/08/2024 - [facility] BKR DRUGS OF ABUSE DISCLAIMER See Comment Normal 03/08/2024 [facility] Cannabinoids Ur Ql Scn Positive Abnormal 03/08/2024 - [facility] Amphetamines Ur Ql Scn Negative Normal 03/08/2024 - [facility] BKR METHADONE METABOLITE SCREEN, URINE, NO CONF. Negative Normal 03/08/2024 - [facility] oxyCODONE Ur Ql Scn Negative Normal 03/08/2024 - [facility] BKR DRUGS OF ABUSE NOTE Normal 03/08/2024 [facility] fentaNYL Ur Ql Scn Negative Normal 03/08/2024 - [facility] Troponin T SerPl HS-mCnc -1.0 ng/L Normal 03/07/2024 [facility] B[facility] ABORH RECHECK INTERPRETATION A POS Normal 03/07/2024 [facility] ANTIBODY SCREEN NEG Normal 03/07/2024 [facility] SPECIMEN EXPIRATION DATE AND TIME 03/10/2024 23:59 Normal 03/07/2024 [facility] ABO GROUPING A Normal 03/07/2024 [facility] B[facility] RH TYPE POS Normal 03/07/2024 [facility] Anion Gap3 SerPl-sCnc 13.0 Normal 03/07/2024 7 - 17 [facility] Creat SerPl-mCnc 0.75 mg/dL Normal 03/07/2024 0.4 - 1.3 [facility] GFR/BSA.pred SerPlBld FYB-QII-PvPSyy >60.0 mL/min/1.73m2 Normal 03/07/2024 - [facility] Calcium SerPl-mCnc 9.2 mg/dL Normal 03/07/2024 8.8 - 10.2 [facility] Potassium SerPl-sCnc 3.7 mmol/L Normal 03/07/2024 3.3 - 5 .3 [facility] Sodium SerPl-sCnc 143.0 mmol/L Normal 03/07/2024 136 - 14 4 [facility] BUN SerPl-mCnc 6.0 mg/dL Below low normal 03/07/2024 8 - 23 [facility] Glucose SerPl-mCnc 101.0 mg/dL Above high normal 03/07/2024 70 - 100 [facility] BUN/Creat SerPl 8.0 Normal 03/07/2024 8 - 23 [facility] HCO3 SerPl-sCnc 23.0 mmol/L Normal 03/07/2024 20 - 30 [facility] Chloride SerPl-sCnc 107.0 mmol/L Normal 03/07/2024 98 - 1 07 [facility] Troponin T SerPl HS-mCnc 9.0 ng/L Normal 03/07/2024 - [facility] INR PPP 0.92 Normal 03/07/2024 0.86 - 1.12 [facility] Prothrombin time 10.3 seconds Normal 03/07/2024 9.6 - 12. 3 [facility] aPTT PPP 28.3 seconds Normal 03/07/2024 23 - 31.4 [facility] T Platelet # Bld Auto 325.0 x1000/uL Normal 03/07/2024 150 - 420 [facility] Hgb Bld-mCnc 13.4 g/dL Normal 03/07/2024 11.7 - 15.5 [facility] Neutrophils # Bld Auto 4.86 x 1000/uL Normal 03/07/2024 2 - 7.6 [facility] MCV RBC Auto 89.4 fL Normal 03/07/2024 80 - 100 [facility] T RBC # Bld Auto 4.72 M/uL Normal 03/07/2024 4 - 6 [facility] MCH RBC Qn Auto 28.4 pg Normal 03/07/2024 27 - 33 [facility] PMV Bld Auto 10.5 fL Normal 03/07/2024 8 - 12 [facility] T Hct VFr Bld Auto 42.2 % Normal 03/07/2024 35 - 45 [facility] RDW RBC Auto-Rto 14.0 % Normal 03/07/2024 11 - 15 [facility] WBC # Bld Auto 8.4 x1000/uL Normal 03/07/2024 4 - 11 [facility] MCHC RBC Auto-mCnc 31.8 g/dL Normal 03/07/2024 31 - 36 [facility] ESR Bld Qn 18.0 mm/hr Normal 02/20/2024 0 - 20 [facility] MCV RBC Auto 88.6 fL Normal 02/20/2024 80 - 100 [facility] T MCH RBC Qn Auto 29.1 pg Normal 02/20/2024 27 - 33 [facility] Imm Granulocytes/leuk NFr Bld Auto 0.5 % Normal 02/20/2024 0 - 1 [facility] Lymphocytes # Bld Auto 1.98 x 1000/uL Normal 02/20/2024 0.6 - 3.7 [facility] Hct VFr Bld Auto 38.1 % Normal 02/20/2024 35 - 45 [facility] WBC # Bld Auto 10.2 x1000/uL Normal 02/20/2024 4 - 11 [facility] Monocytes/leuk NFr Bld Auto 8.5 % Normal 02/20/2024 4 - 12 [facility] Hgb Bld-mCnc 12.5 g/dL Normal 02/20/2024 11.7 - 15.5 [facility] Neutrophils # Bld Auto 7.1 x 1000/uL Normal 02/20/2024 2 - 7.6 [facility] MCHC RBC Auto-mCnc 32.8 g/dL Normal 02/20/2024 31 - 36 [facility] Basophils/leuk NFr Bld Auto 0.6 % Normal 02/20/2024 0 - 1.4 [facility] nRBC/100 WBC Bld Auto-Rto 0.0 % Normal 02/20/2024 0 - 1 [facility] PMV Bld Auto 10.8 fL Normal 02/20/2024 8 - 12 [facility] T Monocytes # Bld Auto 0.87 x 1000/uL Normal 02/20/2024 0 - 1 [facility] Neutrophils/leuk NFr Bld Auto 69.5 % Normal 02/20/2024 39 - 72 [facility] RBC # Bld Auto 4.3 M/uL Normal 02/20/2024 4 - 6 [facility] Basophils # Bld Auto 0.06 x 1000/uL Normal 02/20/2024 0 - 1 [facility] Platelet # Bld Auto 300.0 x1000/uL Normal 02/20/2024 150 - 420 [facility] Eosinophil/leuk NFr Bld Auto 1.5 % Normal 02/20/2024 0 - 5 [facility] RDW RBC Auto-Rto 13.9 % Normal 02/20/2024 11 - 15 [facility] nRBC # Bld Auto 0.0 x 1000/uL Normal 02/20/2024 0 - 1 [facility] Eosinophil # Bld Auto 0.15 x 1000/uL Normal 02/20/2024 0 - 1 [facility] Lymphocytes/leuk NFr Bld Auto 19.4 % Normal 02/20/2024 17 - 50 [facility] Imm Granulocytes # Bld Auto 0.05 x 1000/uL Normal 02/20/2024 0 - 0.3 [facility] Sodium SerPl-sCnc 140.0 mmol/L Normal 02/20/2024 136 - 14 4 [facility] AST SerPl w P-5'-P-cCnc 20.0 U/L Normal 02/20/2024 10 - 35 [facility] Prot SerPl-mCnc 7.1 g/dL Normal 02/20/2024 5.9 - 8.3 [facility] Albumin/Glob SerPl 1.3 Normal 02/20/2024 1 - 2.2 [facility] ALT SerPl w/o P-5'-P-cCnc 29.0 U/L Normal 02/20/2024 10 - 35 [facility] HCO3 SerPl-sCnc 23.0 mmol/L Normal 02/20/2024 20 - 30 [facility] Creat SerPl-mCnc 0.75 mg/dL Normal 02/20/2024 0.4 - 1.3 [facility] GFR/BSA.pred SerPlBld TRJ-KAS-EtTKal >60.0 mL/min/1.73m2 Normal 02/20/2024 - [facility] BUN SerPl-mCnc 12.0 mg/dL Normal 02/20/2024 8 - 23 [facility] AST/ALT SerPl-cRto 0.7 Normal 02/20/2024 - [facility] Glucose SerPl-mCnc 94.0 mg/dL Normal 02/20/2024 70 - 100 [facility] BUN/Creat SerPl 16.0 Normal 02/20/2024 8 - 23 [facility] Bilirub SerPl-mCnc 0.6 mg/dL Normal 02/20/2024 - [facility] Chloride SerPl-sCnc 103.0 mmol/L Normal 02/20/2024 98 - 1 07 [facility] Globulin Plas-mCnc 3.1 g/dL Normal 02/20/2024 2 - 3.9 [facility] Calcium SerPl-mCnc 9.6 mg/dL Normal 02/20/2024 8.8 - 10.2 [facility] Albumin SerPl BCG-mCnc 4.0 g/dL Normal 02/20/2024 3.6 - 5.1 [facility] Potassium SerPl-sCnc 4.0 mmol/L Normal 02/20/2024 3.3 - 5 .3 [facility] Anion Gap3 SerPl-sCnc 14.0 Normal 02/20/2024 7 - 17 [facility] ALP SerPl-cCnc 119.0 U/L Normal 02/20/2024 9 - 122 [facility] CRP SerPl HS-mCnc 8.9 mg/L Above high normal 02/20/2024 - [facility] ESR Bld Qn 10.0 mm/hr Normal 12/09/2023 0 - 20 [facility] Eosinophil # Bld Auto 0.21 x 1000/uL Normal 12/09/2023 0 - 1 [facility] MCHC RBC Auto-mCnc 31.0 g/dL Normal 12/09/2023 31 - 36 [facility] Neutrophils/leuk NFr Bld Auto 61.8 % Normal 12/09/2023 39 - 72 [facility] Monocytes/leuk NFr Bld Auto 8.0 % Normal 12/09/2023 4 - 12 [facility] Monocytes # Bld Auto 0.5 x 1000/uL Normal 12/09/2023 0 - 1 [facility] Lymphocytes/leuk NFr Bld Auto 25.8 % Normal 12/09/2023 17 - 50 [facility] Eosinophil/leuk NFr Bld Auto 3.3 % Normal 12/09/2023 0 - 5 [facility] Basophils # Bld Auto 0.05 x 1000/uL Normal 12/09/2023 0 - 1 [facility] Lymphocytes # Bld Auto 1.62 x 1000/uL Normal 12/09/2023 0.6 - 3.7 [facility] Platelet # Bld Auto 292.0 x1000/uL Normal 12/09/2023 150 - 420 [facility] Neutrophils # Bld Auto 3.87 x 1000/uL Normal 12/09/2023 2 - 7.6 [facility] RBC # Bld Auto 4.29 M/uL Normal 12/09/2023 4 - 6 [facility] Imm Granulocytes # Bld Auto 0.02 x 1000/uL Normal 12/09/2023 0 - 0.3 [facility] MCV RBC Auto 91.8 fL Normal 12/09/2023 80 - 100 [facility] T Basophils/leuk NFr Bld Auto 0.8 % Normal 12/09/2023 0 - 1.4 [facility] Hgb Bld-mCnc 12.2 g/dL Normal 12/09/2023 11.7 - 15.5 [facility] MCH RBC Qn Auto 28.4 pg Normal 12/09/2023 27 - 33 [facility] nRBC # Bld Auto 0.0 x 1000/uL Normal 12/09/2023 0 - 1 [facility] Hct VFr Bld Auto 39.4 % Normal 12/09/2023 35 - 45 [facility] Imm Granulocytes/leuk NFr Bld Auto 0.3 % Normal 12/09/2023 0 - 1 [facility] PMV Bld Auto 10.9 fL Normal 12/09/2023 8 - 12 [facility] T RDW RBC Auto-Rto 14.5 % Normal 12/09/2023 11 - 15 [facility] WBC # Bld Auto 6.3 x1000/uL Normal 12/09/2023 4 - 11 [facility] nRBC/100 WBC Bld Auto-Rto 0.0 % Normal 12/09/2023 0 - 1 [facility] CRP SerPl HS-mCnc 4.4 mg/L Above high normal 12/09/2023 - [facility] ALP SerPl-cCnc 102.0 U/L Normal 12/09/2023 9 - 122 [facility] Creat SerPl-mCnc 0.76 mg/dL Normal 12/09/2023 0.4 - 1.3 [facility] Anion Gap3 SerPl-sCnc 13.0 Normal 12/09/2023 7 - 17 [facility] GFR/BSA.pred SerPlBld MXL-VHS-GxRQty >60.0 mL/min/1.73m2 Normal 12/09/2023 - [facility] Prot SerPl-mCnc 6.9 g/dL Normal 12/09/2023 5.9 - 8.3 [facility] Bilirub SerPl-mCnc 0.5 mg/dL Normal 12/09/2023 - [facility] Globulin Plas-mCnc 3.0 g/dL Normal 12/09/2023 2 - 3.9 [facility] Chloride SerPl-sCnc 105.0 mmol/L Normal 12/09/2023 98 - 1 07 [facility] Calcium SerPl-mCnc 9.3 mg/dL Normal 12/09/2023 8.8 - 10.2 [facility] AST/ALT SerPl-cRto 1.4 Normal 12/09/2023 - [facility] Albumin SerPl BCG-mCnc 3.9 g/dL Normal 12/09/2023 3.6 - 5.1 [facility] HCO3 SerPl-sCnc 23.0 mmol/L Normal 12/09/2023 20 - 30 [facility] ALT SerPl w/o P-5'-P-cCnc 16.0 U/L Normal 12/09/2023 10 - 35 [facility] Glucose SerPl-mCnc 137.0 mg/dL Above high normal 12/09/2023 70 - 100 [facility] Potassium SerPl-sCnc 4.1 mmol/L Normal 12/09/2023 3.3 - 5 .3 [facility] AST SerPl w P-5'-P-cCnc 22.0 U/L Normal 12/09/2023 10 - 35 [facility] BUN SerPl-mCnc 9.0 mg/dL Normal 12/09/2023 8 - 23 [facility] Albumin/Glob SerPl 1.3 Normal 12/09/2023 1 - 2.2 [facility] BUN/Creat SerPl 11.8 Normal 12/09/2023 8 - 23 [facility] Sodium SerPl-sCnc 141.0 mmol/L Normal 12/09/2023 136 - 14 4 [facility] History of Medication Use Medication Directions Dispensed Refills Start Date End Date Stat budesonide-formotero L (SYMBICORT) 160-4.5 mcg/actuation HFA aerosol inhaler Inhale 2 puffs into the lungs 2 (two) times daily. 08/11/2024 08/31/2024 active levETIRAcetam (KEPPRA) 750 mg immediate release tablet Take 1 tablet (750 mg total) by mouth 2 (two) times daily. 07/21/2024 active fluticasone propion-salmeteroL (WIXELA INHUB) 500-50 mcg/dose blister powder for inhalation Inhale 1 puff into the lungs every 12 (twelve) hours. 05/11/2024 08/11/2024 aborted predniSONE (DELTASONE) 20 mg tablet Take 2 tablets (40 mg total) by mouth daily. 11/18/2023 active gabapentin (NEURONTIN) 400 mg capsule Take 1 capsule (400 mg total) by mouth. 10/01/2023 active montelukast (SINGULAIR) 10 mg tablet Take 1 tablet (10 mg total) by mouth nightly. 09/25/2023 active amLODIPine-benazepri l (LOTREL) 5-10 mg per capsule Take by mouth. 05/04/2023 active BiPAP / CPAP With tubing and mask Autotitrate 5-20 mm Hg 12/17/2022 active pentoxifylline (TRENTAL) 400 mg extended release tablet Take 1 tablet (400 mg total) by mouth. 12/02/2022 active budesonide (PULMICORT) 0.5 mg/2 mL nebulizer solution inhale contents of 1 vial ( 2 milliliters ) in nebulizer twice a ... (REFER TO PRESCRIPTION NOTES). 12/09/2023 aborted cetirizine (ZYRTEC) 10 mg tablet Take 1 tablet (10 mg total) by mouth daily. active levothyroxine (SYNTHROID, LEVOTHROID) 200 MCG tablet Take 1 tablet (200 mcg total) by mouth daily. active levothyroxine (SYNTHROID, LEVOTHROID) 50 MCG tablet Take 1 tablet (50 mcg total) by mouth daily. active zolpidem (AMBIEN) 10 mg tablet Take 1 tablet (10 mg total) by mouth nightly as needed for sleep. active Allergies Allergen Reaction Severity Comment Documented Date Source Statu s PROCAINE NAUSEA 10/19/2023 [facility] active PENICILLINS HIVES 10/16/2023 [facility] active PREGABALIN Cannot think st raight while taking it. 11/25/2016 [facility] active MORPHINE HIVES [facility] Problems Problem Status Onset Date Problem Type Date of Resolution Source Cognitive deficits active 2023-10-19 [facility]Act [facility] Obstructive sleep apnea of adult active 2024-04-17 [facility]Act [facility] Interstitial lung disease (HC Code) (HC CODE) active 2012-08-13 [facility]Act [facility] Raynaud's disease active 2012-08-26 [facility]Act [facility] HLD (hyperlipidemia) active 2022-02-08 ProblemAct [facility] Stage 2 chronic kidney disease active 2019-02-17 ProblemAct [facility] Esophageal dysmotility active 2018-12-15 [facility]Act [facility] GERD (gastroesophageal reflux disease) active [...] fatty liver disease active 2019-03-03 ProblemAct [facility] Internal carotid artery stent present active 2023-10-19 ProblemAct [facility] Carotid stenosis, symptomatic, with infarction active 2022-02-12 ProblemAct [facility] Left atrial enlargement active 2023-10-19 [...] [facility]CCC T Other insomnia active 2021-03-05 ProblemAct [facility] Immunizations Vaccine Date Source Lot Number Status [employer] (Shingrix) [facility]/20[id number] completed [employer] (Shingrix) 10/04/2021 [facility] [id number] completed Influenza, injectable, quadr ivalent, preservative free 09[facility]03/2021 [facility] [id number] completed Tdap 11/04/2020 [facility] 3779R completed Influenza, unspecified formulation [id number] completed Influenza, injectable, quad with preservative 04/01/2019 [facility] [id number] completed Tdap 12/07/2018 [facility] [id number] completed Influenza, injectable, quad with preservative 04/16/2018 P [facility] [id number] completed Pneumococcal polysaccharide PPSV23 04/16/2018 [facility] [id number] completed Influenza, injectable, quad with preservative 04/16/2017 P [facility] [id number] completed Influenza, trivalent, inject able, contains preservative 06/09/2015 [facility] completed Pneumococcal conjugate PCV 13 06/09/2015 [facility] completed Influenza, trivalent, inject able, contains preservative 04/29/2014 [facility] completed Influenza, unspecified formulation 04/29/2014 [facility] completed Influenza, trivalent, inject able, contains preservative 04/23/2013 [facility] completed Influenza, trivalent, inject able, contains preservative 04/15/2012 [facility] completed Encounters Encounter Type Encounter Reason Primary Diagnosis Location Date [facility]24 [facility] 08/31/2024 [facility] 08[facility]31/2024 [facility] 08/11/2024 Ambulatory [facility] 05/25/2024 [facility] 05/11/2024 [facility] 05/11/2024 Ambulatory Transient ischemic attack (TIA), and cerebral infarction without residual deficits(V12.54) Transient ischemic attack (TIA), and cerebral infarction without residual deficits(V12.54) [facility]) 04/07/2024 Emergency Headache(784.0) Headache(784.0) [facility] 03/07/2024 [facility] 12/09/2023 [facility] 08/27/2023 [facility] 08/13/2023 [facility] 08/13/2023 [facility] 11[facility]19/2022 [facility] 11/19/2022 [facility] 11/27/2021 [facility] 11/27/2021 Care Team Organization Name Specialty Phone Email Start Date End Da lynne [facility] 05/26/2024 [facility] ([facility]) [facility] 04/07/2024 [facility] Primary [facility] 03/07/2024 04/05/2024 [facility] 03/07/2024 [facility] 08/27/2023
--- OUTSIDE RECORDS SUMMARY | 2025-02-15 10:57 | XMS_ITS | Clinical Summary ---
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 Date Type Department Care Team Description 01/25/2025 9:30 AM EDT Office Visit [place] [facility] D[facility] [address] [place] [address] Jamison Briscoe LLD 11/16/2024 [facility] [address] [place] [address] Cordell Saba from Last 3 Months Family [...] Sign Reading Time Taken Comments Blood Pressure 138/68 01/25/2025 9:25 AM EDT Pulse 64 01/25/2025 9:25 AM EDT Temperature 36.3 C (97.3 F) 07/29/2024 2:15 PM EST Respiratory Rate - - Oxygen Saturation - - Inhaled Oxygen Concentration - - Weight - - Height - - Body Mass Index - - Plan of Treatment Upcoming Encounters Date Type Department Care Team (Late st Contact Info) Description 02/24/2025 12:00 PM EDT Office Visit [facility] DENTAL [address] [place] [address] Hanane Mason 03/03/2025 10:30 AM EDT Office Visit [facility] OPTOMETRY [address] [place] [address] Cherelle Vidal, OD [address] [place] [address] Health Maintenance Due Date Last Done Comments CT Colonography 1961 Colonoscopy 1961 Colorectal Cancer Screening 1961 FIT DNA/Cologuard 1961 FIT 1961 FOBT 1961 HIV Screening 1961 Lipid Panel 1961 SDOH Screening 1961 Sigmoidoscopy 1961 Disability Screening 1961 Alcohol/Substance Use Screening 1973 Hepatitis C Screening 11/22/1979 Hepatitis A Vaccines (1 of 2 - Risk 2-dose series) 1980 Pap Smear 1982 Cervical Cancer Screening 11/22/1991 HPV/Cotest 11/22/1991 Hepatitis B Vaccines (1 of 3 - Risk 3-dose series) 2021 Pneumococcal Vaccine: 50+ Years (3 of 3 - PPSV23, PCV20 or PCV21) 04/16/2023 04/16/2018, 06/09/2015 Mammogram 09/11/2024 09/11/2022, 02/0 03/2023, 03/02/2019, Additional history exists COVID-19 Vaccine (5 - Pfizer risk season) 2024 05/13/2024, 12/06/2021, 11/03/2020, Additional history exists Dental Oral Exam 02/24/2025 08/26/2024 Dental Prophylaxis 02/24/2025 08/26/2024 Influenza Vaccine (#1) 2025 , 09/03/2021, 04/29/2020, Additional history exists Depression Monitoring 05/10/2025 11/08/2024, 025 Tobacco Screening 08/26/2025 08/26/2024 Dental X-Ray: Bitewings 08/27/2025 08/26/2024 Dental X-Ray: Full Mouth 08/27/2027 08/26/2024, 08/05 DTaP/Tdap/Td Vaccines (3 - Td or Tdap) 11/04/2030 11/04/2020, 12/07/2018 Zoster Vaccines Completed 03/28/2022, 10/04/2021 RSV Patients and Patients Aged 60 years or older Completed 12/24/2023 HIB Vaccines Aged Out No longer eligi ble based on patient's age to complete this topic HPV Vaccines Aged Out No longer eligi ble based on patient's age to complete this topic IPV Vaccines Aged Out No longer eligi ble based on patient's age to complete this topic Meningococcal B Vaccine Aged Out No l onger eligible based on patient's age to complete [...] Procedure Name Priority Date/Time Associated Diagnosis Comments 12 MODLL(V) RESIN-BASED COMPOSITE - 4+ SURF, POSTERIOR Routine 01/25/2025 9:30 AM EDT CASE PRESENTATION, DETAILED AND EXTENSIVE TREATMENT PLANNING Routine 01/25/2025 9:30 AM EDT Full PROPHYLAXIS - ADULT Routine 025 9:40 AM EST INTRAORAL - COMPLETE SERIES OF RADIOGRAPHIC IMAGES Routine 08/26/2024 9:40 AM EST PERIODIC ORAL EVALUATION - ESTABLISHED PATIENT Routine 08/26/2024 9:40 AM EST from Last 3 Months or Most Recently Relevant to Health Maintenance Insurance 1-D Jerry Chapman. [place] GARCIA [id number] [facility] HMO [facility] FULL [place]IC[place] [address] [address] [facility] [address] [address] DENTAL - [facility] FULL (MEDICAID) [facility] MEDICAID STAND ADULT Care Teams Stunner Animal Relationship Specialty Start Date End Date Cordell Saba Health Navigator 08/12/24 [facility] NPI ID: [id number] Address: [address] [place] [id number] Primary Care Physician [id number] Primary Care Provider 08/12/18
== END 2025-02-15 11:55 | disposition home or self-care (01) ==
LOC: HO.HMCFM 10:01
PROVIDERS: PCP Family Medicine; Visit Provider Family Medicine
DX: I10 Essential (primary) hypertension (principal); Z86.73 Personal history of transient ischemic attack (TIA), and cerebral infarction without residual deficits; E03.9 Hypothyroidism, unspecified; L73.9 Follicular disorder, unspecified; G89.29 Other chronic pain

== ENCOUNTER → 2025-02-15 10:01 | Outpatient (BNVA) | payer MEDICARE, MEDICAID, SELFPAY | PROVIDERS: PCP Family Medicine; Visit Provider Family Medicine | DX: I10 Essential (primary) hypertension (principal); E03.9 Hypothyroidism, unspecified; G89.29 Other chronic pain; L73.9 Follicular disorder, unspecified; Z86.73 Personal history of transient ischemic attack (TIA), and cerebral infarction without residual deficits | CPT/HCPCS: 99212 ==

== ENCOUNTER 2025-02-22 10:44 | Outpatient (AMB) | payer MEDICARE, MEDICAID, SELFPAY ==
[2025-02-22 10:58] VITALS: BP 138/74; PULSE 61; BMI 33.9
--- NOTE | 2025-02-22 10:58 | A.OFFVIS_ITS ---
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/HTN Allergies Penicillins Allergy (Severe, Verified 02/15/25 10:53) Anaphylaxis morphine Adverse Reaction (Intermediate, Verified 02/15/25 10:53) Confusion Medication List - Last Reconciled 02/22/25 by Francis Green MD albuterol sulfate 2.5 mg continuous nebulization albuterol sulfate 90 mcg/actuation inhalation amlodipine-benazepril 5-10 mg 1 cap PO DAILY atorvastatin 80 mg PO DAILY budesonide 0.5 mg inhalation budesonide-formoterol 160-4.5 mcg/actuation inhalation cephalexin 500 mg PO Q12H 10 days clindamycin phosphate 1% 1 appl topical DAILY 30 days clopidogrel 75 mg PO DAILY cyanocobalamin (vitamin B-12) 1,000 mcg IM gabapentin 400 mg PO 3XD levetiracetam mg PO levothyroxine 200 mcg PO DAILY levothyroxine 50 mcg PO DAILY lidocaine 5% topical metoprolol succinate ER 25 mg PO BID 90 days montelukast 10 mg PO DAILY mycophenolate mofetil mg PO silver sulfadiazine 1% (Silvadene) 1 appl topical BID 10 days syringe with needle, safety (BD Integra Syringe) As directed tramadol 50 mg PO BID PRN 30 days zolpidem 10 mg PO BEDTIME 30 days HPI Comments Details: Bernadette is here for consultation regarding an abnormal EKG and history of systemic sclerosis. Somewhat of a complex history and I do not have all the information. It seems that she used to go to [facility] for her medical care. However, more recently she saw someone [facility]. However, her PCP has referred her to us to get some local cardiology care. From the cardiac standpoint, she does not have any clear-cut history of coronary disease or myocardial infarction or cardiomyopathy. Many comorbidities as listed below. Primarily crest syndrome/scleroderma. Interstitial lung disease. History of right MCA stroke, status post right carotid stent. Right MCA aneurysm. Recurrent pulmonary emboli status post IVC filter. She gets some nonspecific shortness of breath at different times but nothing consistent. No clear-cut angina. [facility] Medical History (Updated 02/22/25 @ 12:34 by Francis Green MD) Nonalcoholic fatty liver Migraine Hyperlipidemia CREST syndrome Chronic kidney disease Hypertension Pulmonary emboli Middle cerebral artery aneurysm Subclavian steal syndrome of right subclavian artery Chronic ischemic right MCA stroke Stroke Lung disease Surgical History (Updated 02/22/25 @ 12:34 by Francis Green MD) S/P IVC filter H/O brain surgery Family History (Updated 10/07/24 @ 15:41 by DAYANA Sigala) Maternal Grandmother FH: mental illness Brother FH: mental illness Sister FH: mental illness Father FH: mental illness Social History (Updated 10/07/24 @ 15:42 by DAYANA Sigala) Housing: Apartment Patient Tobacco Use Status: Never used Tobacco e-Cigarette/Vaping Use: Never Used Second Hand Smoke Exposure: No Substance Use Type: Other service: No Current occupational status: retired Current occupational exposures/hazards: No Cognitive needs: Yes (aphasia ) Hearing needs: No Vision needs: Yes Review of Systems Const Denies weakness ENT Denies dizziness Card Reports chest pain, Denies chest pain with activity, Denies syncope, Denies rapid heart rate, Denies pedal edema, Denies edema, Denies leg edema, Denies lightheadedness, Reports palpitations, Reports dyspnea, Denies dyspnea on exertion and Denies orthopnea Resp Denies cough, Reports dyspnea and Denies dyspnea on exertion GI Denies hematochezia and Denies change in stool character Musc Denies abnormal gait, Denies muscle cramps, Denies muscle weakness, Denies numbness, Denies radiating pain into limb and Denies tingling Neuro Denies abnormal gait, Denies dizziness, Denies syncope, Denies numbness, Denies tingling and Denies weakness Endo Reports palpitations Physical Exam Vital Signs: Last Vital Signs Pulse 61 02/22/25 10:58 BP 138/74 02/22/25 10:58 BMI result Body Mass Index 33.9 Const General: comfortable and no acute distress Orientation/consciousness: patient oriented x3 HEENT Other: Unremarkable Head: Yes normal to inspection Neck Neck: Yes normal visual inspection Chest Chest palpation & inspection: normal inspection of the chest Resp Auscultation: crackles bilateral at the base Cardio Palpation: normal PMI Heart sounds: S1 normal heart sound present, S2 normal heart sound present, no gallops, Murmur heart sound present systolic II/ and no rubs GI Palpation (GI): Soft to palpation Back/Spine/Pelvis Other: unremarkable Skin General skin exam: no rashes or lesions noted Neuro General: patient oriented x3 Extrem General: Yes normal to inspection Psych Mental Status: mental status grossly normal Office Procedures EKG Details: EKG with underlying sinus rhythm at 61/Min; inferior and anterolateral T inversions; cannot exclude old inferior infarct; [place]. [id number], Complete Assessment & Plan Assessment & Plan (1) CREST syndrome: Code(s): M34.1 - CR(E)ST syndrome Category: Medical (2) Scleroderma: Code(s): M34.9 - Systemic sclerosis, unspecified Category: Medical Plan Complicated patient with many comorbidities presenting for cardiovascular assessment. Available general medical records were reviewed. She does have an aortic sclerotic murmur on exam and needs an echocardiogram to assess for aortic stenosis. We will also look for pulmonary hypertension. As she has had extensive medical history with many medical providers, we will need to consolidate the information. We will request records from [facility], where she has been seen before. Follow-up after the above. Total time spent including review of available data, counseling, documentation, coordination of care-50 minutes. Orders: Orders CA echo transthoracic complete Today M34.9 - Systemic sclerosis, unspecified Coding Level of Care Code New Pt Level 4 (13448) Complex EM visit Add On G2211 Diagnoses CREST syndrome M34.1 Scleroderma M34.9 CPT Codes EKG - CPT: 18629-[id number], Complete ([id number])
--- OUTSIDE RECORDS SUMMARY | 2025-02-22 11:58 | XMS_ITS | Encounter Summary ---
Author Organization [facility] Address [address] [place] [address] Care Team Providers Care Validation Scientist Name Role Phone Sal Jose MD Primary Care Provider Encounter Details Date Type Department Care Team (Late st Contact Info) Description 08/13/2023 Scanned Document EXTERNAL REFERRAL SOURCE [address] [place] [address] External, Provider Social History Tobacco Use Types [...] EDT Follow Up Pulmonary [place] [address] [address] Ramon Nixon MD [address] [place] [address] [address] [place] [phone] 04/28/2025 1:45 PM EDT Office Visit Stroke [address] [place] [address] Kristine Kelly MD PhD [address] [place] [phone] 05/04/2025 1:00 PM EDT Follow Up Cardiovascular Medicine at 175 [facility] [address] [place], [place] [address] Mike Hilario MD [address] [facility] [address] [place] [phone] 06/22/2025 2:00 PM EST Office Visit Epilepsy & Seizures at [address] [facility] [address] [facility] Lower [place], [place] [address] Virgie Mast MD PhD [address] [place] [phone] documented as of this encounter Visit Diagnoses Not on filedocumented in this encounter Care Teams Validation Scientist Relationship Specialty Start Date End Date Sal Jose MD [address] [place] [phone] PCP - General Family Medicine 10/16/23 documented as of this encounter
--- OUTSIDE RECORDS SUMMARY | 2025-02-22 11:58 | XMS_ITS | Patient Health Record ---
Author Organization [facility] Address [address] [place] [phone] Care Team Providers Care Administrative Dietitian Name Role Phone Jayant Walker Primary Care Provider Venkatesh Mauro Unavailable [phone] Allergies Allergen (clinical drug ingredient) Drug/Non Drug Allergy documented on EMR Reaction Allergy Type Onset Date Status Penicillin Unknown Drug Allergy Active morphine Morphine Unknown Drug Allergy Active Reason For Referral No Information Medications Medication SIG (Take, Route, Frequency, Duration) Notes Start Date End Date Status Montelukast Sodium 10 MG TAKE 1 TABLET [...] needed Orally Once a day 02/08/2025 Active Clopidogrel Bisulfate 75 MG TAKE [...] EVERY DAY Oral for 90 Days Active Cetirizine HCl 10 MG 1 tablet Orally Once a day for 30 day(s) 02/08/2025 Active Vitamin B Complex - as directed Orally 02/08/2025 Active Pantoprazole Sodium 40 MG 1 tablet 1/2 to 1 hour before morning meal Orally Once a day for 30 days Please remind the patient to speak with the physician prescribing her clopidogrel before she starts to use the pantoprazole Thanks very much 02/08/2025 Active Diclofenac 1.25 % 1 patch Externally Once a day 02/08/2025 Active Levothyroxine Sodium 50 MCG Oral for 90 Days Active Vitamin B 12 500 MCG 1 tablet Orally Once a day for 30 day(s) 02/08/2025 Active Levothyroxine Sodium 50 MCG TAKE 1 TABLET BY MOUTH EVERY DAY Oral for 90 Days Active Ventolin HFA 108 (90 Base) MCG/ACT 1 puff as needed Inhalation every 4 hrs 02/08/2025 Active Atorvastatin Calcium 80 MG Oral for 90 Days Active amLODIPine Besy-Benazepril HCl 5-10 MG Oral for 90 Days Active Metoprolol Succinate ER 25 MG Oral for 90 Days Active Lidocaine 5 % 1 patch remove after 12 hours Externally Once a day 02/08/2025 Active levETIRAcetam 500 MG 1 tablet Orally every 12 hrs for 30 day(s) 02/08/2025 Active Gabapentin 400 MG TAKE 1 CAPSULE BY MOUTH 3 TIMES DAILY. Oral for 30 Days Active Protonix 40 MG 1 tablet 1/2 to 1 hour before morning meal Orally Once a day for 30 day(s) 02/08/2025 Active Mycophenolate Mofetil 250 MG TAKE 5 CAPSULES BY MOUTH TWICE A DAY Oral for 90 Days Active Pentoxifylline ER 400 MG 1 tablet with meals Orally Twice a day for 30 day(s) 02/08/2025 Active Albuterol Sulfate HFA 108 (90 Base) MCG/ACT Inhalation for 16 Days Active Albuterol Sulfate HFA 108 (90 Base) MCG/ACT INHALE 2 PUFFS INTO THE LUNGS EVERY 4 (FOUR) HOURS NEEDED FOR SHORTNESS OF BREATH Inhalation for 16 Days Active Silver sulfADIAZINE 1 % APPLY TOPICALLY 2 TIMES A DAY FOR 10 DAYS APPLY A 1.5 MM THICKNESS. NEED INSURANCE External for 10 Days Active Immunizations Vaccine Route Administration Date Status Comme nts Influenza Unknown 05/26/2024 Administered Social History Tobacco Use: Social History Observation [...] Problem Status W/U Status Risk Notes Problem Colon cancer screening (353015450) Colon cancer screening (Z12.11) Active confirmed Problem Irregular bowel habits (562752434) Irregular bowel habits (R19.8) Active confirmed Problem Long-term current use of anticoagulant (165505219) Anticoagulant long-term use (Z79.01) Active confirmed Problem Systemic sclerosis (41614199) 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) Active confirmed Problem Gastroesophageal reflux disease (465076211) GERD without esophagitis (K21.9) Active confirmed Problem History of polyp of colon (situation) (208545713) History of colon polyps (Z86.0100) Active confirmed Vital Signs Temperature 98.0 degrees Fahrenheit 02/08/2025 Blood pressure diastolic 01 mm Hg 02/08/2025 Height 68 in 02/08/2025 Blood pressure systolic 001 mm Hg 02/08/2025 Weight 222.4 lbs 02/08/2025 BMI 33.81 kg/m2 02/08/2025 Procedures Procedure Date Ordered Date Performed Result Body Sit e UPPER GI ENDOSCOPY 02/08/2025 N/A COLONOSCOPY 02/08/2025 N/A Encounters Encounter Location Date Provider Diagnosis [facility] [address] [place] [phone] 02/08/2025 Venkatesh Marsh History of colon gely yps Z86.0100 ; GERD without esophagitis K21.9 ; Colon cancer screening Z12.11 ; Anticoagulant long-term use Z79.01 ; Irregular bowel habits R19.8 and Scleroderma of esophagus M34.1 [facility] [address] [place] [phone] 02/08/2025 Venkatesh Marsh Assessments Encounter Date Diagnosis (ICD Code) Assessment Notes Treatment Notes Treatment Clinical Notes Section Notes 02/08/2025 GERD without esophagitis (ICD-10 - K21.9) [...] would then send a prescription over for Pantoprazole for her since I think that would be acceptable to use along with her clopidogrel. However, I will advise her to speak with her stroke doctor at [facility] who prescribes her clopidogrel so as to be sure that is not contraindicated from their standpoint. I did recommend a follow-up upper endoscopy given the description of her previous endoscopies and recommendations from her formulation technician in [place], [place]. She is not having any [...] but was advised to speak with her [facility] physicians about those recommendations to be sure there is no contraindication to them. I advised her that she might need Lovenox for bridging while off the clopidogrel and pentoxifylline. However, I advised her that would be up to the physicians at [facility]. These procedures will be scheduled for her at some point in the Fall. I do not think they need to be done sooner from a clinical standpoint based on no worrisome symptoms at the present time. I wanted to leave enough time for us to get information and ultimate clearance from all of her physicians at [facility]. She clearly has comorbidities including pulmonary issues, coronary artery disease, and cerebrovascular disease. I advised her to try to get clearance letters and summaries of her medical issues from the [facility] physician such that we can share them with the medical staff and anesthesiologist at [facility] prior to her procedures. If it turns out that her [facility] physicians do not think she is stable for these procedures we can always postpone them to a later date. Roman was comfortable with this plan. Thank you again for allowing me to participate in Roman's care. I shall continue to keep you advised of her progress. 02/08/2025 History of colon polyps (ICD-10 - [...] would then send a prescription over for Pantoprazole for her since I think that would be acceptable to use along with her clopidogrel. However, I will advise her to speak with her stroke doctor at [facility] who prescribes her clopidogrel so as to be sure that is not contraindicated from their standpoint. I did recommend a follow-up upper endoscopy given the description of her previous endoscopies and recommendations from her formulation technician in [place], [place]. She is not having any [...] but was advised to speak with her [facility] physicians about those recommendations to be sure there is no contraindication to them. I advised her that she might need Lovenox for bridging while off the clopidogrel and pentoxifylline. However, I advised her that would be up to the physicians at [facility]. These procedures will be scheduled for her at some point in the Fall. I do not think they need to be done sooner from a clinical standpoint based on no worrisome symptoms at the present time. I wanted to leave enough time for us to get information and ultimate clearance from all of her physicians at [facility]. She clearly has comorbidities including pulmonary issues, coronary artery disease, and cerebrovascular disease. I advised her to try to get clearance letters and summaries of her medical issues from the [facility] physician such that we can share them with the medical staff and anesthesiologist at [facility] prior to her procedures. If it turns out that her [facility] physicians do not think she is stable for these procedures we can always postpone them to a later date. Roman was comfortable with this plan. Thank you again for allowing me to participate in Roman's care. I shall continue to keep you advised of her progress. 02/08/2025 Colon cancer screening (ICD-10 - Z12.11) Need names of your [facility] doctors and we will need letters with [...] would then send a prescription over for Pantoprazole for her since I think that would be acceptable to use along with her clopidogrel. However, I will advise her to speak with her stroke doctor at [facility] who prescribes her clopidogrel so as to be sure that is not contraindicated from their standpoint. I did recommend a follow-up upper endoscopy given the description of her previous endoscopies and recommendations from her formulation technician in [place], [place]. She is not having any [...] but was advised to speak with her [facility] physicians about those recommendations to be sure there is no contraindication to them. I advised her that she might need Lovenox for bridging while off the clopidogrel and pentoxifylline. However, I advised her that would be up to the physicians at [facility]. These procedures will be scheduled for her at some point in the Fall. I do not think they need to be done sooner from a clinical standpoint based on no worrisome symptoms at the present time. I wanted to leave enough time for us to get information and ultimate clearance from all of her physicians at [facility]. She clearly has comorbidities including pulmonary issues, coronary artery disease, and cerebrovascular disease. I advised her to try to get clearance letters and summaries of her medical issues from the [facility] physician such that we can share them with the medical staff and anesthesiologist at [facility] prior to her procedures. If it turns out that her [facility] physicians do not think she is stable [...] would then send a prescription over for Pantoprazole for her since I think that would be acceptable to use along with her clopidogrel. However, I will advise her to speak with her stroke doctor at [facility] who prescribes her clopidogrel so as to be sure that is not contraindicated from their standpoint. I did recommend a follow-up upper endoscopy given the description of her previous endoscopies and recommendations from her formulation technician in [place], [place]. She is not having any [...] but was advised to speak with her [facility] physicians about those recommendations to be sure there is no contraindication to them. I advised her that she might need Lovenox for bridging while off the clopidogrel and pentoxifylline. However, I advised her that would be up to the physicians at [facility]. These procedures will be scheduled for her at some point in the Fall. I do not think they need to be done sooner from a clinical standpoint based on no worrisome symptoms at the present time. I wanted to leave enough time for us to get information and ultimate clearance from all of her physicians at [facility]. She clearly has comorbidities including pulmonary issues, coronary artery disease, and cerebrovascular disease. I advised her to try to get clearance letters and summaries of her medical issues from the [facility] physician such that we can share them with the medical staff and anesthesiologist at [facility] prior to her procedures. If it turns out that her [facility] physicians do not think she is stable [...] would then send a prescription over for Pantoprazole for her since I think that would be acceptable to use along with her clopidogrel. However, I will advise her to speak with her stroke doctor at [facility] who prescribes her clopidogrel so as to be sure that is not contraindicated from their standpoint. I did recommend a follow-up upper endoscopy given the description of her previous endoscopies and recommendations from her formulation technician in [place], [place]. She is not having any [...] but was advised to speak with her [facility] physicians about those recommendations to be sure there is no contraindication to them. I advised her that she might need Lovenox for bridging while off the clopidogrel and pentoxifylline. However, I advised her that would be up to the physicians at [facility]. These procedures will be scheduled for her at some point in the Fall. I do not think they need to be done sooner from a clinical standpoint based on no worrisome symptoms at the present time. I wanted to leave enough time for us to get information and ultimate clearance from all of her physicians at [facility]. She clearly has comorbidities including pulmonary issues, coronary artery disease, and cerebrovascular disease. I advised her to try to get clearance letters and summaries of her medical issues from the [facility] physician such that we can share them with the medical staff and anesthesiologist at [facility] prior to her procedures. If it turns out that her [facility] physicians do not think she is stable [...] would then send a prescription over for Pantoprazole for her since I think that would be acceptable to use along with her clopidogrel. However, I will advise her to speak with her stroke doctor at [facility] who prescribes her clopidogrel so as to be sure that is not contraindicated from their standpoint. I did recommend a follow-up upper endoscopy given the description of her previous endoscopies and recommendations from her formulation technician in [place], [place]. She is not having any [...] but was advised to speak with her [facility] physicians about those recommendations to be sure there is no contraindication to them. I advised her that she might need Lovenox for bridging while off the clopidogrel and pentoxifylline. However, I advised her that would be up to the physicians at [facility]. These procedures will be scheduled for her at some point in the Fall. I do not think they need to be done sooner from a clinical standpoint based on no worrisome symptoms at the present time. I wanted to leave enough time for us to get information and ultimate clearance from all of her physicians at [facility]. She clearly has comorbidities including pulmonary issues, coronary artery disease, and cerebrovascular disease. I advised her to try to get clearance letters and summaries of her medical issues from the [facility] physician such that we can share them with the medical staff and anesthesiologist at [facility] prior to her procedures. If it turns out that her [facility] physicians do not think she is stable for these procedures we can always postpone them to a later date. Roman was comfortable with this plan. Thank you again for allowing me to participate in Roman's care. I shall continue to keep you advised of her progress. Plan Of Treatment Pending Test Test Name Order Date UPPER GI ENDOSCOPY 02/08/2025 COLONOSCOPY 02/08/2025 Next Appt Details Provider Name:Venkatesh Marsh , 06/01/2025 08:30:00 AM, [facility] , [place], [place], [phone], Insurance Providers Payer Name Payer Address Payer Phone Subscriber Number Group Number Insured Name Patient Relationship to Insured Coverage Start Date Coverage End Date MEDICARE OF [place] [address] [place] [address] [id number] JERRICA Mcdonough ROMAN Self - patient is the insured 5 MEDICAID OF [facility] [address] [place] [address] [id number] JERRICA Mcdonough ROMAN Self - patient is the insured Medical (General) History Medical History History ICD Code [place] Syndrome with strok e--approx 2020--carotid artery stent on the right--sees Neurologist and Stroke Specialist at [facility] [place]-approx 2019--no stents--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 She describes removal of polyps on some of them with her last one being in early 2019. She was advised to have them every 5 years for screening and surveillance. 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
--- OUTSIDE RECORDS SUMMARY | 2025-02-22 11:59 | XMS_ITS | Clinical Summary ---
Author Organization [employer] Address [address] [place] [address] [address] [place] [address] Care Team Providers Care Manager Of Internal Audit Name Role Phone Cordell Saba Unavailable Unavailable [...] Pulmonary embolism 06/05/2012 Overview (07/29/2024): 1990- in [place] Primary hypertension 02/13/2012 Hypothyroidism 02/04/2012 Overview (07/29/2024): 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 Encounters * This document contains information received from the source organization and may not represent a complete record from that organization. Date Type Department Care Team Description 01/25/2025 9:30 AM EDT Office Visit [facility] [address] [place], [place] [id number] Jamison Briscoe LLD from Last 3 Months Family History Medical [...] Upcoming Encounters Date Type Department Care Team (Da st Contact Info) Description 02/24/2025 12:00 PM EDT Office Visit [facility] [address] [place] [address] Hanane Mason 03/03/2025 10:30 AM EDT Office Visit [facility] [address] [place] [address] Cherelle Vidal, OD [address] [place] [address] Health Maintenance Due Date Last Done Comments [...] PCV21) 04/16/2023 04/16/2018, 06/09/2015 Mammogram 09/11/2024 09/11/2022, 03/2023, 03/02/2019, Additional history exists COVID-19 Vaccine (5 - Pfizer risk 2023- season) 2024 05/13/2024, 12/06/2021, 11/03/2020, Additional history [...] Relevant to Health Maintenance [place] [address] [id number] [facility] F[facility] MEDICARE [facility] [place] [address] [id number] DENTAL - [facility] FULL (MEDICAID) [facility] MEDICAID STAND ADULT Care Teams Manager Of Internal Audit Relationship Specialty Start Date End Date Cordell Saba Health Navigator 08/12/24 CASSIDY DE LA FUENTE NPSha ID: [id number] Address: [address] [place] [phone] Primary Care Physician [id number] Primary Care Provider 08/12/18
== END 2025-02-22 11:34 | disposition home or self-care (01) ==
LOC: HO.HCS 10:44
PROVIDERS: PCP Family Medicine; Visit Provider Internal Medicine
DX: M34.1 CR(E)ST syndrome (principal); M34.9 Systemic sclerosis, unspecified
CPT/HCPCS: 93010; 99204; G2211

== ENCOUNTER → 2025-02-22 10:44 | Outpatient (BNVA) | payer MEDICARE, MEDICAID, SELFPAY | PROVIDERS: PCP Family Medicine; Visit Provider Internal Medicine | DX: M34.1 CR(E)ST syndrome (principal); M34.9 Systemic sclerosis, unspecified; R94.31 Abnormal electrocardiogram [ECG] [EKG] | CPT/HCPCS: 93005; 99202 ==

== ENCOUNTER 2025-03-10 10:42 | Outpatient (AMB) | payer MEDICARE, MEDICAID, SELFPAY ==
--- NOTE | 2025-03-10 10:55 | A.OFFPC_ITS ---
Vital Signs 03/10/25 11:09 Height 5 ft 8 in Weight 224 lb BMI 34.1 BP 140/78 H Blood Pressure Location Lt brachial Position Sitting Respiration 14 Pulse 67 Pulse Source Pulse Oximeter Temp 97.9 F Temp Source Temporal Artery Scan Pulse Oximetry (%) 97 Oxygen Delivery Method Room Air Intake Visit Reasons: Discharged from [facility] on 03/01 Intake Note: Bernadette presents in the office today after being discharged from [facility]. Allergies Penicillins Allergy (Severe, Verified 03/10/25 10:59) Anaphylaxis morphine Adverse Reaction (Intermediate, Verified 03/10/25 10:59) Confusion Medication List - Last Reconciled 03/10/25 by Jayant Walker MD albuterol sulfate 2.5 mg continuous nebulization albuterol sulfate 90 mcg/actuation inhalation amlodipine-benazepril 5-10 mg 1 cap PO DAILY amlodipine-benazepril 5-20 mg 1 cap PO DAILY 90 days aspirin 81 mg PO DAILY atorvastatin 80 mg PO DAILY budesonide 0.5 mg inhalation budesonide-formoterol 160-4.5 mcg/actuation inhalation cephalexin 500 mg PO Q12H 10 days cetirizine 10 mg PO DAILY PRN clindamycin phosphate 1% 1 appl topical DAILY 30 days clopidogrel 75 mg PO DAILY cyanocobalamin (vitamin B-12) 1,000 mcg IM fenofibrate 150 mg PO DAILY gabapentin 400 mg PO 3XD isosorbide mononitrate ER 30 mg PO QAM levetiracetam mg PO levothyroxine 200 mcg PO DAILY levothyroxine 50 mcg PO DAILY lidocaine 5% topical metoprolol succinate ER 25 mg PO BID 90 days montelukast 10 mg PO DAILY mycophenolate mofetil orally 250mg capsules 5 pills BID; pantoprazole 40 mg PO DAILY pentoxifylline ER 400 mg PO TID silver sulfadiazine 1% (Silvadene) 1 appl topical BID 10 days syringe with needle, safety (BD Integra Syringe) As directed tramadol 50 mg PO BID PRN 30 days zolpidem 10 mg PO BEDTIME 30 days Tobacco use date assessed: 03/10/25 Dental Screening Dental Screen Date: 03/10/25 Did you have a dental visit in the last 12 months?: Yes Did you have a dental problem in the last 6 months where you did not have access to dental care?: No Was dental information given to patient?: Patient has dentist HPI Discharged from [facility] on 03/01 2 HPI Details Recent visit to [facility] 02/25/25 to 03/01/25. Patient presented with substernal chest pain radiating outward. Serial EKGs and troponin levels ruled out ACS however patient responded to nitroglycerin raising suspicion of coronary vasospasm. [facility] Medical History (Updated 03/10/25 @ 12:41 by Ryan Rowland) Nonalcoholic fatty liver Migraine Hyperlipidemia CREST syndrome Chronic kidney disease Hypertension Pulmonary emboli Middle cerebral artery aneurysm Subclavian steal syndrome of right subclavian artery Chronic ischemic right MCA stroke Stroke Lung disease Surgical History (Updated 02/22/25 @ 12:34 by Francis Green MD) S/P IVC filter H/O brain surgery Family History Maternal Grandmother FH: mental illness Brother FH: mental illness Sister FH: mental illness Father FH: mental illness Social History (Updated 03/10/25 @ 11:09 by Razia Dial MA) Housing: Apartment Alcohol intake: never Patient Tobacco Use Status: Never used Tobacco e-Cigarette/Vaping Use: Never Used Second Hand Smoke Exposure: No Substance Use Type: Other service: No Current occupational status: retired Current occupational exposures/hazards: No Cognitive needs: Yes (aphasia ) Hearing needs: No Vision needs: Yes Questionnaire Thrive Questionnaire Date Thrive assessed: 10/07/24 I am a: Patient What is your living situation today?: I have a steady place to live Within the past 12 months, did the food you bought not last and you didn't have the money to get more?: Sometimes True Within the past 12 months, did you worry whether your food would run out before you got money to buy more?: Sometimes True Do you have trouble paying for medicines?: Yes Do you have trouble getting transportation to medical appointments?: Yes Do you have trouble paying your heating and electricity bill?: No Do you have trouble taking care of your child, family member or friend?: No Do you have trouble with day-to-day activities such as bathing, preparing meals, shopping, managing finances, etc.?: Yes Are you currently unemployed and looking for a job?: No Are you interested in more education?: Yes THRIVE Score: 3 FLEX-7 AMB Questionnaire FLEX-7 Date FLEX - 7 assessed: 10/07/24 Source: Developed by Drs. Venkatesh Acuna, Kay Garcia, Kings Rooney and colleagues, with an educational haim from [employer]. Review of Systems Const Denies chills, Denies fatigue, Denies fever(s), Denies headache(s) and Denies weakness ENT Denies dizziness and Denies headache(s) Card Denies dyspnea Resp Denies cough, Denies dyspnea, Denies wheezing and Denies other (shortness of breath) Musc Denies numbness and Denies tingling Neuro Denies dizziness, Denies headache(s), Denies numbness, Denies tingling and Denies weakness Psych Denies anxiety and Denies depression Endo Denies fatigue Aller/Immun Denies wheezing Physical exam (Primary Care) Vital Signs: Last Vital Signs Temp 97.9 F 03/10/25 11:09 Pulse 67 03/10/25 11:09 Resp 14 03/10/25 11:09 BP 140/78 H 03/10/25 11:09 Pulse Ox 97 03/10/25 11:09 Oxygen Delivery Method Room Air 03/10/25 11:09 BMI result Body Mass Index 34.1 Tobacco/Smoking Status: Tobacco use Status Tobacco use date assessed 03/10/25 03/10/25 11:12 Patient Tobacco Use Status Never used Tobacco 03/10/25 11:09 e-Cigarette/Vaping Use Never Used 03/10/25 11:09 Thrive Assessment: Date of Thrive Assessment Date Thrive assessed 10/07/24 03/10/25 10:56 Const General: well developed; No acute distress Nutritional Appearance: well nourished Orientation/consciousness: patient oriented x3 HENMT Head: Yes normocephalic and Yes atraumatic Eyes General: appearance normal, both eyes and all related structures Pupils: Equal, round and reactive pupils present EOM: EOMs intact bilaterally Resp Effort & Inspection: normal respiratory effort Neuro General: patient oriented x3 and gait normal Cranial nerves: Yes Equal, round and reactive pupils present Psych Affect: normal affect Coding Level of Care Code Est Pt Level 4 (24716) Diagnoses Chest pain R07.9 Atelectasis J98.11 Aortic stenosis I35.0 Sleep apnea G47.30 Elevated fasting glucose R73.01 Scleroderma M34.9 Hypertension, unspecified type I10 Hypertension type: unspecified Right knee pain M25.561 Assessment & Plan Assessment & Plan (1) Chest pain: Code(s): R07.9 - Chest pain, unspecified Category: Medical (2) Atelectasis: Code(s): J98.11 - Atelectasis Category: Medical (3) Aortic stenosis: Code(s): I35.0 - Nonrheumatic aortic (valve) stenosis Category: Medical (4) Sleep apnea: Code(s): G47.30 - Sleep apnea, unspecified Category: Medical (5) Elevated fasting glucose: Code(s): R73.01 - Impaired fasting glucose Category: Medical (6) Scleroderma: Code(s): M34.9 - Systemic sclerosis, unspecified Category: Medical (7) Hypertension: Code(s): I10 - Essential (primary) hypertension Category: Medical Qualifiers: Hypertension type: unspecified Qualified Code(s): I10 - Essential (primary) hypertension (8) Right knee pain: Code(s): M25.561 - Pain in right knee Category: Medical (9) Sleep apnea: Code(s): G47.30 - Sleep apnea, unspecified Category: Medical Plan Recent visit to [facility] 02/25/25 to 03/01/25. Patient presented with substernal chest pain radiating outward. Serial EKGs and troponin levels ruled out ACS however patient responded to nitroglycerin raising suspicion of coronary vasospasm. CTs again in ED showed calcified plaque in distal LM into proximal LAD causing mild stenosis in minimal calcified plaques at LM ostium. CT and ultrasound Doppler ruled out PE and DVT. Chest x-ray showed bibasilar opacities, read as atelectasis.. Echocardiogram showed normal EF 60-65% with mild to moderate aortic stenosis and mildly dilated left atrium. ED added isosorbide mononitrate 30 mg q.a.m. She will follow-up with Cardiology. Cardiology had ordered an echocardiogram but this was done at the hospital. Advised her to follow-up with Cardiology as recommended She notes that the isosorbide sometimes gives her a frontal headache. She can try taking this before bed rather than in the morning. She can discuss further with Cardiology Blood pressure is elevated today. Will increase amlodipine-benazepril from 5/10 mg daily to 5/20 mg daily. Ongoing chronic pain. Taking tramadol as appropriate in this mostly manages her pain. Will continue this She has some difficulty sleeping. She has had a CPAP in the past and history of sleep apnea Referring her back to Sleep Medicine Hypothyroidism She is taking levothyroxine 250 mcg daily. 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 Orders: Orders Complete Blood Count Auto Diff Today M34.1 - CR(E)ST syndrome, Z00.00 - Encounter for general adult medical examination without abnormal findings Vitamin B12 and Folate Today E53.8 - Deficiency of other specified B group vitamins, M34.1 - CR(E)ST syndrome Free T4 (Free Thyroxine) Today E03.9 - Hypothyroidism, unspecified Triiodothyronine T3 Total Today E03.9 - Hypothyroidism, unspecified XR knee RT 3V Today M25.561 - Pain in right knee Uric Acid Today M25.561 - Pain in right knee Comprehensive Met. Panel Today M34.1 - CR(E)ST syndrome CRP High Sensitivity Today M34.1 - CR(E)ST syndrome Methylmalonic Acid Today M34.1 - CR(E)ST syndrome Lipid Panel Today Z00.00 - Encounter for general adult medical examination without abnormal findings, Z86.73 - Personal history of transient ischemic attack (TIA), and cerebral infarction without residual deficits Thyroid Stimulating Hormone Today E03.9 - Hypothyroidism, unspecified Referrals Sleep Medicine Referral G47.30 - Sleep apnea, unspecified Medications: New amlodipine-benazepril 5-20 mg 1 cap PO DAILY 90 caps 2RF 90 days cyanocobalamin (vitamin B-12) 1,000 mcg IM QMONTH 1 ea 3RF 30 days Refilled tramadol [facility] Verified. Partial Refill on request. 50 mg PO BID PRN 60 tabs 0RF pain 30 days G89.29 - Other chronic pain Discontinued tramadol [facility] Verified. Partial Refill on request. Discontinued Reason: Doctor's Order 50 mg PO BID 30 days PRN 60 tabs 0RF pain G89.29 - Other chronic pain
[2025-03-10 11:09] VITALS: BP 140/78; PULSE 67; RESP 14; TEMP 36.6; O2SAT 97; BMI 34.1
--- OUTSIDE RECORDS SUMMARY | 2025-03-10 11:24 | XMS_ITS | Patient Health Record ---
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 Name Role Phone Jayant Walker Primary Care Provider Venkatesh Mauro Unavailable [phone] Allergies Allergen (clinical drug ingredient) Drug/Non Drug [...] Status Risk Notes Problem Colon cancer screening (521065868) Colon cancer screening (Z12.11) Active confirmed Problem Irregular bowel habits (697664699) Irregular bowel habits (R19.8) Active confirmed Problem Long-term current use of anticoagulant (791880000) Anticoagulant long-term use (Z79.01) Active confirmed Problem Systemic sclerosis (97668277) 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) Active confirmed Problem Gastroesophageal reflux disease (908388054) GERD without esophagitis (K21.9) Active confirmed Problem History of polyp of colon (situation) (422398668) History of colon polyps (Z86.0100) Active confirmed [...] N/A Encounters Encounter Location Date Provider Diagnosis [facility] [address] [place] [id number] 02/08/2025 Venkatesh Marsh History of colon gely yps Z86.0100 ; GERD without esophagitis K21.9 ; Colon cancer screening Z12.11 ; Anticoagulant long-term use Z79.01 ; Irregular bowel habits R19.8 and Scleroderma of esophagus M34.1 [facility] [address] [place] [id number] 02/08/2025 Venkatesh Marsh Assessments Encounter Date Diagnosis [...] to speak with her stroke doctor at [place] who prescribes her clopidogrel so as to be sure that is not contraindicated from their standpoint. I did recommend a follow-up upper endoscopy given the description of her previous endoscopies and recommendations from her chili pepper grinder in [place], [place]. She is not having any [...] but was advised to speak with her [place] physicians about those recommendations to be sure there is no contraindication to them. I advised her that she might need Lovenox for bridging while off the clopidogrel and pentoxifylline. However, I advised her that would be up to the physicians at [place]. These procedures will be scheduled for her at some point in the Fall. I do not think they need to be done sooner from a clinical standpoint based on no worrisome symptoms at the present time. I wanted to leave enough time for us to get information and ultimate clearance from all of her physicians at [facility]. She clearly has comorbidities including pulmonary issues, coronary artery disease, and cerebrovascular disease. I advised her to try to get clearance letters and summaries of her medical issues from the [place] physician such that we can share them with the medical staff and anesthesiologist at [facility] prior to her procedures. If it turns out that her [place] physicians do not think she is stable [...] to speak with her stroke doctor at [place] who prescribes her clopidogrel so as to be sure that is not contraindicated from their standpoint. I did recommend a follow-up upper endoscopy given the description of her previous endoscopies and recommendations from her chili pepper grinder in [place], [place]. She is not having any [...] but was advised to speak with her [place] physicians about those recommendations to be sure there is no contraindication to them. I advised her that she might need Lovenox for bridging while off the clopidogrel and pentoxifylline. However, I advised her that would be up to the physicians at [place]. These procedures will be scheduled for her at some point in the Fall. I do not think they need to be done sooner from a clinical standpoint based on no worrisome symptoms at the present time. I wanted to leave enough time for us to get information and ultimate clearance from all of her physicians at [facility]. She clearly has comorbidities including pulmonary issues, coronary artery disease, and cerebrovascular disease. I advised her to try to get clearance letters and summaries of her medical issues from the [place] physician such that we can share them with the medical staff and anesthesiologist at [facility] prior to her procedures. If it turns [...] (ICD-10 - Z12.11) Need names of your [place] doctors and we will need letters with [...] to speak with her stroke doctor at [place] who prescribes her clopidogrel so as to be sure that is not contraindicated from their standpoint. I did recommend a follow-up upper endoscopy given the description of her previous endoscopies and recommendations from her chili pepper grinder in [place], [place]. She is not having any [...] but was advised to speak with her [place] physicians about those recommendations to be sure there is no contraindication to them. I advised her that she might need Lovenox for bridging while off the clopidogrel and pentoxifylline. However, I advised her that would be up to the physicians at [place]. These procedures will be scheduled for her at some point in the Fall. I do not think they need to be done sooner from a clinical standpoint based on no worrisome symptoms at the present time. I wanted to leave enough time for us to get information and ultimate clearance from all of her physicians at [facility]. She clearly has comorbidities including pulmonary issues, coronary artery disease, and cerebrovascular disease. I advised her to try to get clearance letters and summaries of her medical issues from the [place] physician such that we can share them with the medical staff and anesthesiologist at [facility] prior to her procedures. If it turns out that her [place] physicians do not think she is stable [...] to speak with her stroke doctor at [place] who prescribes her clopidogrel so as to be sure that is not contraindicated from their standpoint. I did recommend a follow-up upper endoscopy given the description of her previous endoscopies and recommendations from her chili pepper grinder in [place], [place]. She is not having any [...] but was advised to speak with her [place] physicians about those recommendations to be sure there is no contraindication to them. I advised her that she might need Lovenox for bridging while off the clopidogrel and pentoxifylline. However, I advised her that would be up to the physicians at [place]. These procedures will be scheduled for her at some point in the Fall. I do not think they need to be done sooner from a clinical standpoint based on no worrisome symptoms at the present time. I wanted to leave enough time for us to get information and ultimate clearance from all of her physicians at [facility]. She clearly has comorbidities including pulmonary issues, coronary artery disease, and cerebrovascular disease. I advised her to try to get clearance letters and summaries of her medical issues from the [place] physician such that we can share them with the medical staff and anesthesiologist at [facility] prior to her procedures. If it turns out that her [place] physicians do not think she is stable [...] to speak with her stroke doctor at [place] who prescribes her clopidogrel so as to be sure that is not contraindicated from their standpoint. I did recommend a follow-up upper endoscopy given the description of her previous endoscopies and recommendations from her chili pepper grinder in [place], [place]. She is not having any [...] but was advised to speak with her [place] physicians about those recommendations to be sure there is no contraindication to them. I advised her that she might need Lovenox for bridging while off the clopidogrel and pentoxifylline. However, I advised her that would be up to the physicians at [place]. These procedures will be scheduled for her at some point in the Fall. I do not think they need to be done sooner from a clinical standpoint based on no worrisome symptoms at the present time. I wanted to leave enough time for us to get information and ultimate clearance from all of her physicians at [facility]. She clearly has comorbidities including pulmonary issues, coronary artery disease, and cerebrovascular disease. I advised her to try to get clearance letters and summaries of her medical issues from the [place] physician such that we can share them with the medical staff and anesthesiologist at [facility] prior to her procedures. If it turns out that her [place] physicians do not think she is stable [...] to speak with her stroke doctor at [place] who prescribes her clopidogrel so as to be sure that is not contraindicated from their standpoint. I did recommend a follow-up upper endoscopy given the description of her previous endoscopies and recommendations from her chili pepper grinder in [place], [place]. She is not having any [...] but was advised to speak with her [place] physicians about those recommendations to be sure there is no contraindication to them. I advised her that she might need Lovenox for bridging while off the clopidogrel and pentoxifylline. However, I advised her that would be up to the physicians at [place]. These procedures will be scheduled for her at some point in the Fall. I do not think they need to be done sooner from a clinical standpoint based on no worrisome symptoms at the present time. I wanted to leave enough time for us to get information and ultimate clearance from all of her physicians at [facility]. She clearly has comorbidities including pulmonary issues, coronary artery disease, and cerebrovascular disease. I advised her to try to get clearance letters and summaries of her medical issues from the [place] physician such that we can share them with the medical staff and anesthesiologist at [facility] prior to her procedures. If it turns out that her [place] physicians do not think she is stable [...] Name:Venkatesh Marsh , 06/01/2025 08:30:00 AM, [address] [facility] , [place], [place], [id number], Insurance Providers Payer Name Payer Address Payer Phone Subscriber Number Group Number Insured Name Patient Relationship to Insured Coverage Start Date Coverage End Date MEDICARE OF [place] [address] [place] [address] [id number] JERRICA Mcdonough ROMAN Self - patient is the insured 5 MEDICAID OF [facility] [address] [place] [address] [phone] [id number] JERRICA Mcdonough ROMAN Self - patient is the insured Medical (General) History Medical History History ICD Code Moyamoya Syndrome with strok e--approx 2020--carotid artery stent on the right--sees Neurologist and Stroke Specialist at [place]-approx 2019--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
--- OUTSIDE RECORDS SUMMARY | 2025-03-10 11:24 | XMS_ITS | Clinical Summary ---
Author Organization [employer] Address [address] [place] [address] [address] [place] [address] Care Team Providers Care Lapel Stitcher Name Role Phone Cordell Saba Unavailable Unavailable [...] 2 times daily. 07/21/20 24 025 Active aspirin 81 MG EC tablet 1 tablet in the morning. 02/09/20 25 Active atenolol (Tenormin) 50 MG tablet Take 50 mg by mouth Once per day. 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 Encounters Date Type Department Care Team Description 02/24/2025 12:00 PM EDT Office Visit [facility] [address] [place] [address] Hanane Mason Stage 2 grade B generalized periodontitis per AAP/EFP 2017 classification (Primary Dx); Dental calculus; Encounter for dental examination 01/25/2025 9:30 AM EDT Office Visit [facility] [address] [place] [address] Jamison Briscoe LLD from Last 3 Months [...] Sign Reading Time Taken Comments Blood Pressure 148/85 02/24/2025 11:59 AM EDT Pulse 68 02/24/2025 11:59 AM EDT Temperature 36.3 C (97.3 F) 07/29/2024 2:15 PM EST Respiratory Rate - - Oxygen Saturation - - Inhaled Oxygen Concentration - - Weight - - Height - - Body Mass Index - - Plan of Treatment Health Maintenance Due Date Last Done Comments [...] PCV21) 04/16/2023 04/16/2018, 06/09/2015 Mammogram 09/11/2024 09/11/2022, 02/03/2023, 03/02/2019, Additional history exists COVID-19 Vaccine (5 - Pfizer risk season) 2024 05/13/2024, 12/06/2021, 11/03/2020, Additional history exists Influenza Vaccine (#1) 2025 , 05/13/2024, 09/03/2021, Additional history exists Depression Monitoring 05/10/2025 11/08/2024, 025 Dental X-Ray: Bitewings 08/27/2025 08/26/2024 Dental Oral Exam 08/28/2025 02/24/2025, 08/26/2024 Dental Prophylaxis 08/28/2025 02/24/2025, 08/26/2024 Tobacco Screening 02/24/2026 02/24/2025 Dental X-Ray: Full Mouth 08/27/2027 08/26/2024, 08/05 [...] PRESENTATION, DETAILED AND EXTENSIVE TREATMENT PLANNING Routine 02/24/2025 12:00 PM EDT ORAL HYGIENE INSTRUCTIONS Routine 2024 12:00 PM EDT Full PROPHYLAXIS - ADULT Routine 025 12:00 PM EDT PERIODIC ORAL EVALUATION - ESTABLISHED PATIENT Routine 02/24/2025 12:00 PM EDT 12 MODLL(V) RESIN-BASED COMPOSITE - 4+ SURF, POSTERIOR Routine 01/25/2025 9:30 AM EDT CASE PRESENTATION, DETAILED AND EXTENSIVE TREATMENT PLANNING Routine 01/25/2025 9:30 AM EDT INTRAORAL - COMPLETE SERIES OF RADIOGRAPHIC IMAGES Routine 08/26/2024 9:40 AM EST from Last 3 Months or Most Recently Relevant to Health Maintenance Insurance 1-D [place] [id number] [facility] FULL MEDICARE 1-D [place] [address] [address] [place] [id number] DENTAL - HSN FULL (MEDICAID) Care Teams Lapel Stitcher Relationship Specialty Start Date End Date Cordell Saba [facility]igator 08/12/24 CASSIDY DE LA FUENTE NPI ID: [id number] Address: [address] [place] [phone] Primary Care Physician [id number] Primary Care Provider 08/12/18
--- OUTSIDE RECORDS SUMMARY | 2025-03-10 11:24 | XMS_ITS | Encounter Summary ---
Author Organization [facility] Address [address] [place] [address] Care Team Providers Care Photoengraving Retoucher Name Role Phone Sal Jose MD Primary Care Provider Encounter Details Date Type Department Care Team (Late st Contact Info) Description 08/13/2023 Scanned Document EXTERNAL REFERRAL SOURCE [address] [place] [id number] External, Provider Social History Tobacco Use Types [...] Care Team (Late st Contact Info) Description 04/28/2025 1:45 PM EDT Office Visit Stroke [address] [place] [address] Kristine Kelly MD PhD [address] [place] [phone] 05/04/2025 1:00 PM EDT Follow Up Cardiovascular Medicine at 175 [facility] 175 [place], [place] [address] Mike Hilario MD [address] [place] [address] 2 [place] [phone] 06/22/2025 2:00 PM EST Office Visit [facility] 800 [facility] 800 [facility] [place] [address] Virgie Mast MD PhD 800 [place] [phone] 08/09/2025 1:00 PM EST Office Visit [facility]monary Critical [facility] [address] [facility] [address] [place] [address] Ramon Nixon MD 136 [facility] [address] [place] [phone] Ksenia Jain, RT 136 [facility] [address] [place] [address] documented as of this encounter Visit Diagnoses Not on filedocumented in this encounter Care Teams Photoengraving Retoucher Relationship Specialty Start Date End Date Sal Jose MD [facility] [place] [phone] PCP - General Family Medicine 10/16/23 documented as of this encounter
== END 2025-03-10 12:39 | disposition home or self-care (01) ==
LOC: HO.HMCFM 10:43
PROVIDERS: PCP Family Medicine; Visit Provider Family Medicine
DX: R07.9 Chest pain, unspecified (principal); J98.11 Atelectasis; I35.0 Nonrheumatic aortic (valve) stenosis; G47.30 Sleep apnea, unspecified; R73.01 Impaired fasting glucose; M34.9 Systemic sclerosis, unspecified; I10 Essential (primary) hypertension; M25.561 Pain in right knee

== ENCOUNTER 2025-03-10 10:42 | Outpatient (REF) | payer MEDICARE, MEDICAID, SELFPAY ==
--- NOTE | ~2025-03-10 | XR_ITS ---
EXAMINATION: XR KNEE 3 VIEWS RIGHT HISTORY: M25.561 - Pain in right knee COMPARISON: There are no prior studies available for comparison. FINDINGS: Three views of the right knee are submitted. Osseous mineralization is normal. There is no fracture or dislocation. There is moderate osteoarthritis of the medial compartment with joint space narrowing and osteophyte formation. There is mild osteoarthritis of the lateral and patellofemoral compartments. The soft tissues are unremarkable. XR/XR knee RT 3V IMPRESSION: Tricompartmental osteoarthritis of the right knee as described. Electronically signed by: Venkatesh Sheppard MD 03/10/2025 01:55 PM EDT
== END 2025-03-10 10:43 | disposition home or self-care (01) ==
LOC: HO.XRAY 10:42
PROVIDERS: PCP Family Medicine; Visit Provider Family Medicine
DX: M25.561 Pain in right knee (principal); R07.9 Chest pain, unspecified; J98.11 Atelectasis; I35.0 Nonrheumatic aortic (valve) stenosis; G47.30 Sleep apnea, unspecified; R73.01 Impaired fasting glucose; M34.9 Systemic sclerosis, unspecified; I10 Essential (primary) hypertension; G89.29 Other chronic pain; E03.9 Hypothyroidism, unspecified; Z79.891 Long term (current) use of opiate analgesic; Z79.899 Other long term (current) drug therapy
CPT/HCPCS: 73562; 99212

== ENCOUNTER → 2025-03-10 13:32 | Outpatient (BNV) | payer MEDICARE, MEDICAID, SELFPAY | PROVIDERS: PCP Family Medicine; Visit Provider Radiology Diagnostic Radiology | DX: M17.11 Unilateral primary osteoarthritis, right knee (principal) | CPT/HCPCS: 73562 ==

== ENCOUNTER 2025-04-07 14:00 | Outpatient (AMB) | payer MEDICARE, MEDICAID, SELFPAY ==
--- NOTE | 2025-04-07 14:03 | MHC.PC.OV ---
Vital Signs 04/07/25 14:23 Height 5 ft 8 in Weight 228 lb 4 oz BMI 34.7 BP 107/58 L Blood Pressure Location Lt brachial Position Sitting Respiration 16 Pulse 69 Pulse Source Pulse Oximeter Temp 97.4 F Temp Source Temporal Artery Scan Pulse Oximetry (%) 98 Oxygen Delivery Method Room Air Intake Visit Reasons: f/u labs and hypothyroidism Intake Note: patient here for follow up on labs and hypothyroidism Litharge Supervisor Required: No Is last menstrual period known: No Post menopausal: No Patient : No Allergies Penicillins Allergy (Severe, Verified 04/07/25 14:19) Anaphylaxis morphine Adverse Reaction (Intermediate, Verified 04/07/25 14:19) Confusion Tobacco use date assessed: 04/07/25 Dental Screening Dental Screen Date: 04/07/25 Did you have a dental visit in the last 12 months?: Yes Did you have a dental problem in the last 6 months where you did not have access to dental care?: No Was dental information given to patient?: Patient has dentist HPI f/u labs and hypothyroidism HPI Details 64 y/o female presents to f/u labs, hypothyroidism, hypertension. Knee x-ray 03/10/25 shows tricompartmental osteoarthritis of R knee. I do not see any recent thyroid labs. BP today 107/58, 69p. Pt notes she has been feeling lightheaded and fatigue recently since her med change. She is on amlodipine-benazepril, metoprolol, isosorbide. Continues to watch the salt/sodium in her diet. She did note she has gained weight recently. Notes she has an upcoming sleep study. [facility] Medical History (Updated 04/07/25 @ 15:35 by Jayant Walker MD) Nonalcoholic fatty liver Migraine Hyperlipidemia CREST syndrome Chronic kidney disease Hypertension Pulmonary emboli Middle cerebral artery aneurysm Subclavian steal syndrome of right subclavian artery Chronic ischemic right MCA stroke Stroke Lung disease Surgical History (Updated 02/22/25 @ 12:34 by Francis [place] MD) S/P IVC filter H/O brain surgery Family History Maternal Grandmother FH: mental illness Brother FH: mental illness Sister FH: mental illness Father FH: mental illness Social History (Updated 03/10/25 @ 11:09 by Razia Dial MA) Housing: Apartment Alcohol intake: never Patient Tobacco Use Status: Never used Tobacco e-Cigarette/Vaping Use: Never Used Second Hand Smoke Exposure: No Substance Use Type: Other service: No Current occupational status: retired Current occupational exposures/hazards: No Cognitive needs: Yes (aphasia ) Hearing needs: No Vision needs: Yes Questionnaire Thrive Questionnaire Date Thrive assessed: 10/07/24 I am a: Patient What is your living situation today?: I have a steady place to live Within the past 12 months, did the food you bought not last and you didn't have the money to get more?: Sometimes True Within the past 12 months, did you worry whether your food would run out before you got money to buy more?: Sometimes True Do you have trouble paying for medicines?: Yes Do you have trouble getting transportation to medical appointments?: Yes Do you have trouble paying your heating and electricity bill?: No Do you have trouble taking care of your child, family member or friend?: No Do you have trouble with day-to-day activities such as bathing, preparing meals, shopping, managing finances, etc.?: Yes Are you currently unemployed and looking for a job?: No Are you interested in more education?: Yes THRIVE Score: 3 FLEX-7 AMB Questionnaire FLEX-7 Date FLEX - 7 assessed: 10/07/24 Source: Developed by Drs. Venkatesh Acuna, Kay Garcia, Kings Rooney and colleagues, with an educational haim from [employer]. Review of Systems Const Denies chills, Denies fatigue, Denies fever(s), Denies headache(s) and Denies weakness ENT Denies dizziness and Denies headache(s) Card Denies chest pain, Denies lightheadedness, Denies dyspnea and Denies other (Palpitations) Resp Denies cough, Denies dyspnea, Denies wheezing and Denies other ( shortness of breath) Musc Denies numbness and Denies tingling Neuro Denies dizziness, Denies headache(s), Denies numbness, Denies tingling, Denies paresthesias and Denies weakness Psych Denies anxiety and Denies depression Endo Denies fatigue Aller/Immun Denies wheezing Physical exam (Primary Care) Vital Signs: Last Vital Signs Temp 97.4 F 04/07/25 14:23 Pulse 69 04/07/25 14:23 Resp 16 04/07/25 14:23 BP 107/58 L 04/07/25 14:23 Pulse Ox 98 04/07/25 14:23 Oxygen Delivery Method Room Air 04/07/25 14:23 BMI result Body Mass Index 34.7 Tobacco/Smoking Status: Tobacco use Status Tobacco use date assessed 04/07/25 04/07/25 14:25 Patient Tobacco Use Status Never used Tobacco 04/07/25 14:05 e-Cigarette/Vaping Use Never Used 04/07/25 14:05 Thrive Assessment: Date of Thrive Assessment Date Thrive assessed 10/07/24 04/07/25 14:05 Const General: no acute distress and well developed Nutritional Appearance: well nourished Orientation/consciousness: patient oriented x3 HENMT Head: Yes normocephalic and Yes atraumatic Eyes General: appearance normal, both eyes and all related structures Pupils: Equal, round and reactive pupils present EOM: EOMs intact bilaterally Resp Effort & Inspection: normal respiratory effort Auscultation: clear to auscultation bilaterally Cardio Rate: regular rate Rhythm: regular rhythm Heart sounds: S1 normal heart sound present, S2 normal heart sound present, no gallops, no murmurs and no rubs Neuro General: patient oriented x3 and gait normal Cranial nerves: Yes Equal, round and reactive pupils present Psych Affect: normal affect Coding Level of Care Code Est Pt Level 5 (34670) Diagnoses Hypertension, unspecified type I10 Hypertension type: unspecified Hypothyroidism, unspecified type E03.9 Hypothyroidism type: unspecified Right knee pain M25.561 Obesity E66.9 Tricompartment osteoarthritis of right knee M17.11 Assessment & Plan Assessment & Plan (1) Hypertension: Code(s): I10 - Essential (primary) hypertension Category: Medical Qualifiers: Hypertension type: unspecified Qualified Code(s): I10 - Essential (primary) hypertension Plan: Blood pressure is on the low side and patient notes some orthostasis when she stands up quickly Will have her resume prior dosing for amlodipine-benazepril She wants to discontinue isosorbide and I advised she talk to her telephone coin box collector at their appointment next week Salt sodium in diet Keep working on weight loss-she is having difficulty with exercise so advised she decrease caloric intake (2) Hypothyroidism: Code(s): E03.9 - Hypothyroidism, unspecified Category: Medical Qualifiers: Hypothyroidism type: unspecified Qualified Code(s): E03.9 - Hypothyroidism, unspecified Plan: Had ordered thyroid hormone levels. Lab fax received has page 1 of 3. I do not yet have her thyroid hormone levels though patient says they were normal when she looked on her labs portal. She will continue current medication Will request lab results and call patient if adjustments are needed. (3) Right knee pain: Code(s): M25.561 - Pain in right knee Category: Medical Plan: Pain and swelling at right knee (4) Obesity: Code(s): E66.9 - Obesity, unspecified Category: Medical Plan: As above, encouraged decreased caloric intake via diet (5) Tricompartment osteoarthritis of right knee: Code(s): M17.11 - Unilateral primary osteoarthritis, right knee Category: Medical Plan: Knee brace provided Will use when walking medium and long distances. Take of for short distances around the house Use diclofenac gel Referred to Ortho She can continue tramadol. Patient notes that she was on tramadol 3 times a day previously but I recommended she remain on twice daily dosing and see if she gets any relief from interventions from ortho. Orders: Referrals Orthopedics Referral M17.11 - Unilateral primary osteoarthritis, right knee Medications: New diclofenac sodium 1% (Arthritis Pain (diclofenac)) apply to single knee, ankle, foot; for foot includes sole/toes/top of foot 4 grams topical BID 200 grams 2RF 30 days Changed From levothyroxine 50 mcg PO DAILY To levothyroxine 50 mcg PO DAILY 90 tabs 3RF 90 days From levothyroxine 200 mcg PO DAILY To levothyroxine 200 mcg PO DAILY 90 tabs 3RF 90 days From amlodipine-benazepril 5-10 mg Temporary script 1 cap PO DAILY 7 days 7 caps 0RF To amlodipine-benazepril 5-10 mg Temporary script 1 cap PO DAILY 90 caps 3RF 90 days Refilled tramadol [facility] Verified. Partial Refill on request. 50 mg PO BID PRN 60 tabs 0RF pain 30 days G89.29 - Other chronic pain Discontinued amlodipine-benazepril 5-20 mg Discontinued Reason: Doctor's Order 1 cap PO DAILY 90 days 90 caps 2RF
[2025-04-07 14:23] VITALS: BP 107/58; PULSE 69; RESP 16; TEMP 36.3; O2SAT 98; BMI 34.7
--- OUTSIDE RECORDS SUMMARY | 2025-04-07 15:16 | XMS_ITS | Encounter Summary ---
Author Organization [facility] Address [address] [place] [address] Care Team Providers Care Asthma Educator Name Role Phone Sal Jose MD Primary Care Provider Encounter Details Date Type Department Care Team (Late st Contact Info) Description 08/13/2023 Scanned Document EXTERNAL REFERRAL SOURCE [address] [place] [address] External, Provider Social History Tobacco Use Types [...] 1:45 PM EDT Office Visit Stroke [address] [place] [address] Kristine Kelly MD PhD [address] [place] [phone] 05/04/2025 1:00 PM EDT Follow Up Cardiovascular Medicine at 175 [facility] 175 [place], [place] [address] Mike Hilario MD [address] [place] [address] 2 [place] [phone] 06/22/2025 2:00 PM EST Office Visit [facility] 800 [facility] 800 [facility] [place] [address] Virgie Mast MD PhD 800 [facility] [place] [phone] 08/09/2025 1:00 PM EST Office Visit [facility]monary Critical [facility] 136 [facility] [address] [place] [address] Ramon Nixon MD 136 [facility] [address] [place] [phone] Ksenia Jain, RT 136 [facility] [address] [place] [address] documented as of this encounter Visit Diagnoses Not on filedocumented in this encounter Care Teams Asthma Educator Relationship Specialty Start Date End Date Sal Jose MD [facility] [place] [phone] PCP - General Family Medicine 10/16/23 documented as of this encounter
--- OUTSIDE RECORDS SUMMARY | 2025-04-07 15:17 | XMS_ITS | Encounter Summary ---
Author Organization [facility] Address [address] [place] [phone] Care Team Providers Care Almond Paste Mixer Name Role Phone Sal Jose MD Primary Care Provider Encounter Details Date Type Department Care Team (Late st Contact Info) Description 08/09/2014 Abstract Endocrinology at [address] [place] [address] Emerita Beth MD [address] [place] [phone] Social History Tobacco Use Types Packs/Day Years Used Date Smoking Tobacco: Never Assessed Comments Unknown Sex and Gender Information Value Date Recorded Sex Assigned at Not on file Legal Sex Female 7:18 AM EST Gender Identity Not on file Sexual Orientation Not on file documented as of this encounter Plan of Treatment Upcoming Encounters Date Type Department Care Team (Late Contact Info) Description 04/28/2025 1:45 PM EDT Office Visit Stroke 800 [place], [place] [phone] Kristine Kelly MD PhD [address] [place] [phone] 05/04/2025 1:00 PM EDT Follow Up Cardiovascular Medicine at 175 [facility] 175 [place] [address] Mike Hilario MD 175 [facility] [address] [place] [address] 06/22/2025 2:00 PM EST Office Visit [facility] at 800 [facility] 800 [facility] [place] [address] Virgie Mast MD PhD [address] [place] [phone] 08/09/2025 1:00 PM EST Office Visit Pulmonary Critical [facility] 136 [facility] [address] [place] [address] Ramon Nixon MD 136 [facility] [address] [place] [phone] Ksenia Jain, RT 136 [facility] [address] [place] [address] documented as of this encounter Visit Diagnoses Not on filedocumented in this encounter Care Teams Almond Paste Mixer Relationship Specialty Start Date End Date Sal Jose MD [facility] [address] [phone] PCP - General Family Medicine 10/16/23 documented as of this encounter
--- OUTSIDE RECORDS SUMMARY | 2025-04-07 15:17 | XMS_ITS | Clinical Summary ---
Author Organization [facility] Address 20 [place] [address] Phone Care Team Providers Care Hoop Puncher Name Role Phone Sal Jose MD Primary Care Provider [phone] Allergies Active Allergy Reactions Criticality Noted Date [...] partial seizures, not intractable, without status epilepticus Take 1 tablet (750 mg total) by [...] of adult 04/17/2024 NSVT (nonsustained ventricular tachycardia) (HC Code) 04/17/2024 Occlusion of right middle cerebral artery 2023 [...] stroke 02/12/2022 Carotid stenosis, symptomatic, with infarction ( HC Code) 02/12/2022 HLD (hyperlipidemia) 02/08/2022 Other insomnia 03/05/2021 Nonalcoholic fatty liver disease 03/03/2019 Stage 2 chronic kidney disease 02/17/2019 Esophageal dysmotility 12/15/2018 Postinflammatory pulmonary fibrosis (HC Code) Migraine without aura 04/09/2013 Sensory polyneuropathy 02/23/2013 Low back pain 09/02/2012 Raynaud's disease 08/26/2012 Interstitial lung disease (HC Code) 08/13/2012 Inflammatory arthritis 06/19/2012 Primary hypertension 02/13/2012 Hypothyroidism 02/04/2012 Overview (10/19/2023): 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 Encounters Date Type Department Care Team Description 03/08/2025 12:00 PM EDT Follow Up Pulmonary Critical [place] [address] [place] [address] Ramon Nixon MD Mild persistent asthma with acute exacerbation (HC CODE) (Primary Dx); ILD (interstitial lung disease) (HC Code) from Last 3 Months Immunizations Immunization Administration Dates Next Due Influenza, injectable, quad [...] Pressure 196/83 07/21/2024 9:20 AM EST Pulse 67 03/08/2025 12:18 PM EDT Temperature 35.9 C (96.7 F) 07/21/2024 9:13 AM EST Respiratory Rate 16 03/08/2025 12:1 8 PM EDT Oxygen Saturation 98% 03/08/2025 12: 18 PM EDT Inhaled Oxygen Concentration - - Weight 102.4 kg (225 lb 12.8 oz) 2024 12:18 PM EDT Height 172.7 cm (5' 8 ) 08/31/2024 3:47 PM EST Body Mass Index 34.33 08/31/2024 3:47 PM EST Plan of Treatment Upcoming Encounters Date Type Department Care Team (Late st Contact Info) Description 04/28/2025 1:45 PM EDT Office Visit [facility] Stroke 800 [place] [address] Kristine Kelly MD PhD 800 [place] [phone] 05/04/2025 1:00 PM EDT Follow Up Cardiovascular Medicine at [address] 175 [place] [address] Mike Hilario MD 175 [facility] Fl 2 [place] [phone] 06/22/2025 2:00 PM EST Office Visit Epilepsy & Seizures at 800 [facility] 800 [facility] Lower [place], [place] [address] Virgie Mast MD PhD 800 [place] [phone] 08/09/2025 1:00 PM EST Office Visit Pulmonary Critical [place] 136 [facility] [address] [place], [place] [address] Ramon Nixon MD 136 [facility] 302 [place] [phone] Ksenia Jain, RT 136 [facility] 302 [place], [place] [address] Health Maintenance Due Date Last Done Comments HIV screening 1974 Hepatitis C screening 11/22/1979 Lipid disorder screening 2001 Colon cancer screening, Colonoscopy 2006 Cervical cancer screening 02/25/2019 02/25/2014 RSV Immunization (1 - Risk 60-74 years 1-dose series) 2021 Pneumococcal Vaccine (50+ years) (3 of 3 - PPSV23, PCV20 or PCV21) 04/16/2023 04/16/2018, 06/09/2015 Breast cancer screening 09/11/2024 09/11/19, 09/11/2022, 03/02/2019, Additional history exists Covid-19 vaccine series (2024- season) 2025 12/06/2021, 11/03/2020, 10/13/2020 Influenza vaccine 04/04/2025 05/26/2024, , 04/29/2020, Additional history exists Diabetes screening 07/23/2027 07/23/2024, 1 , 04/15/2024, Additional history exists Tetanus adult (Td q 10,TDAP once) 11/04/2030 11/04/2020, 12/07/2018 Pneumococcal Vaccine (2 - 49 years) Discontinued 04/16/2018, 06/09/2015 Shingles vaccine (Shingrix) Completed 03/28/2022, 0 10/04/2021 Meningococcal B Vaccine Aged Out No l onger eligible based on patient's age to complete this topic Meningococcal Vaccine Aged Out No abdirahman nelsy eligible based on patient's age to complete this topic Procedures Procedure Name Priority Date/Time Associated Diagnosis Comments COMPREHENSIVE METABOLIC PANEL Routine 07/23/2024 1:13 PM EST CRST syndrome (HC Code) from Last 3 Months or Most Recently Relevant to Health Maintenance Results * Comprehensive metabolic panel (07/23/2024 1:13 PM EST) Sodium 144 136 - 144 mmol/L 07/23/2024 3:09 PM [facility] DEPART[facility] OF LABORATORY MEDICINE Potassium 4.2 3.3 - 5.3 mmol/L 07/23/2024 3:09 PM [facility]PART[facility] OF LABORATORY MEDICINE Chloride 105 98 - 107 mmol/L 07/23/2024 3:09 PM [facility] LAB[facility]ATORY MEDICINE CO2 26 20 - 30 mmol/L 07/23/2024 3:09 PM [facility]ORY MEDIC[facility] Anion Gap 13 7 - 17 07/23/2024 3:09 PM [facility]ORY MEDICINE Glucose 89 70 - 100 mg/dL 07/23/2024 3:09 PM [facility] LABORATORY MEDICINE BUN 13 8 - 23 mg/dL 07/23/2024 3:09 PM [facility] LAB[facility]ATORY MEDICINE Creatinine 0.72 0.40 - 1.30 mg/dL 07/23/2024 3:09 PM [facility] OF LABORATORY MEDICINE Calcium 9.7 8.8 - 10.2 mg/dL 07/23/2024 3:09 PM [facility] OF LABORATORY MEDICINE BUN/Creatinine Ratio 18.1 8.0 - 23.0 07/23/2024 3:09 PM [facility] DEPARTMENT OF LABORATORY MEDICINE Total Protein 6.7 5.9 - 8.3 g/dL 024 3:09 PM [facility]PART[facility] OF LABORATORY MEDICINE Comment:As of 2023, th e reference interval for Total Protein has been changed from (6.6 to 8.7 g/dL) to (5.9 to 8.3 g/dL). Albumin 4.3 3.6 - 5.1 g/dL 07/23/2024 3:09 PM [facility] DEPART[facility] OF LABORATORY MEDICINE Comment:As of 2023, e reference interval for Albumin has been changed from (3.6 to 4.9 g/dL) to (3.6 to 5.1 g/dL). Total Bilirubin 0.6 <=1.2 mg/dL 07/23/20 24 3:09 PM [facility] OF LABORATORY MEDICINE Alkaline Phosphatase 113 9 - 122 U/L 07/23/2024 3:09 PM [facility] DE[facility] OF LABORATORY MEDICINE Alanine Aminotransferase (ALT) 27 10 - 35 U/L 07/23/2024 3:09 PM [facility] OF LABORATORY MEDICINE Comment:Calcium dobesilate c an cause artificially low ALT results at therapeutic concentrations Aspartate Aminotransferase (AST) 23 10 - 35 U/L 07/23/2024 3:09 PM [facility] DEPARTMENT OF LABORATORY MEDICINE Globulin 2.4 2.0 - 3.9 g/dL 07/23/2024 3:09 PM [facility] DEPARTMENT OF LABORATORY MEDICINE Comment:As of 2023, e reference interval for Globulin has been changed from (2.3 to 3.5 g/dL) to (2.0 to 3.9 g/dL). A/G Ratio 1.8 1.0 - 2.2 07/23/2024 3:09 PM [facility] OF LAB[facility]ATORY MEDICINE AST/ALT Ratio 0.9 Reference Range Not Established 07/23/2024 3:09 PM [facility] DEPARTMENT OF LABORATORY MEDICINE eGFR (Creatinine) >60 >=60 mL/min/1.73m2 07/23/2024 3:09 PM [facility] DEPARTMENT OF LABORATORY MEDICINE Comment: [facility] utilizes CKD-EPI Creatinine 2020 to report eGFR. Values < 60 mL/min/1.73 m2 may indicate CKD if present for more than three months AND creatinine is at steady state. The eGFR provides a rough estimate of kidney function. For further guidance, please refer to the CKD: Adult [employer] Signature pathway. Creatinine Delta 0.01 See Comment 3:09 PM [facility] DEPARTMENT OF LABORATORY MEDICINE Comment: Delta creatinine [...] System LAB BLOOD ORDERABLES Evelin smith Result [facility] [address] [place] [address] from Last 3 Months or Most Recently Relevant to Health Maintenance [place] [address] [id number] [facility] MGD [id number] MEDICA[place] 1[place] [address] [facility] MGD [id number] MEDICA[place] [address]-[place] [address] [facility] 1-[place] [address] [facility] MGD [id number] MEDICAID 1[place] [address] [facility] Care Teams Hoop Puncher Relationship Specialty Start Date End Date Sal Jose MD [address] [phone] PCP - General Family Medicine 10/16/23
--- OUTSIDE RECORDS SUMMARY | 2025-04-07 15:17 | XMS_ITS | Encounter Summary ---
Author Organization [facility] and [facility] Address [address] [place] [address] Care Team Providers Care Exterior Designer Name Role Phone Sal Jose MD Primary Care Provider [phone] Encounter Details Date Type Department Care Team (Late st Contact Info) Description 07/21/2024 Transcribed Orders [facility] Laboratory Specimens [address] [place], [place] [address] System, Provider Not In CRST syndrome (HC Code) (Primary Dx) Social History Tobacco [...] PM EDT Office Visit [facility] Stroke 800 [place], [place] [phone] Kristine Kelly MD PhD 800 [place] [phone] 05/04/2025 1:00 PM EDT Follow Up Cardiovascular Medicine at [address] 175 [place], [place] [address] Mike Hilario MD 175 [facility] Fl 2 [place] [phone] 06/22/2025 2:00 PM EST Office Visit Epilepsy & Seizures at 800 [facility] 800 [facility] Lower Level [place], [place] [address] Virgie Mast MD PhD 800 [place] [phone] 08/09/2025 1:00 PM EST Office Visit Pulmonary Critical [place] 136 [facility] [address] [place] [address] Ramon Nixon MD 136 [facility] 302 [place] [address] Ksenia Jain, RT 136 [facility] 302 [place], [place] [address] documented as of this encounter Results * Sedimentation rate (ESR) (07/23/2024 1:13 PM EST) Sedimentation Rate (ESR) 12 0 - 20 mm/hr 07/23/2024 2:55 PM EST [facility] DEPARTMENT OF LABORATORY MEDICINE Blood Venipuncture / Unknown 07/23/2024 1:13 PM EST 07/23/2024 2:24 PM EST us Provider Not In System LAB BLOOD ORDERABLES Evelin smith Result [facility] DEPARTMENT OF LABORATORY MEDICINE [address] [place] [address] documented in this encounter Visit Diagnoses Diagnosis 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
--- OUTSIDE RECORDS SUMMARY | 2025-04-07 15:17 | XMS_ITS | Encounter Summary ---
Author Organization [facility] and [facility] Address [address] [place] [phone] Care Team Providers Care Retirement Manager Name Role Phone Sal Jose MD Primary Care Provider [phone] Encounter Details Date Type Department Care Team (Late Contact Info) Description 10/28/2023 Scanned Document Neurosurgery at 800 [facility] 800 [place] [address] Joao Loredo MD [address] [place] [phone] Social History Tobacco Use Types Packs/Day Years [...] 1:45 PM EDT Office Visit Stroke 800 [place], [place] [address] Kristine Kelly MD PhD 800 [place] [phone] 05/04/2025 1:00 PM EDT Follow Up Cardiovascular Medicine at [address] [place] [address] Mike Hilario MD 175 [facility] Fl 2 [place] [address] 06/22/2025 2:00 PM EST Office Visit [facility] Epilepsy [facility] Seizures at 800 [facility] 800 [facility] [place] [address] Virgie Mast MD PhD 800 [place] [address] 08/09/2025 1:00 PM EST Office Visit [place]monary Critical [place] 136 [facility] [address] [place] [address] Ramon Nixon MD 136 [facility] [address] 302 [place] [phone] Ksenia Jain, RT 136 [facility] [address] [place] [address] documented as of this encounter Procedures Procedure [...] MRI Result Scan (04/12/2020 12:01 PM EDT) Historical Provider IMG SCAN REPORTS Final Resul t * MRI Result Scan (04/12/2020 11:55 AM EDT) [facility] Provider IMG SCAN REPORTS Final Resul t * MRI Result Scan (04/08/2020 12:04 PM EDT) Historical Provider IMG SCAN REPORTS [...] CT Result Scan (09/28/2012 12:30 PM EST) [facility] Provider IMG SCAN REPORTS Final Resul t * CT Result Scan (09/07/2012 12:34 PM EST) [facility] Provider IMG SCAN REPORTS Final Resul t * CT Result Scan (02/13/2012 12:38 PM EDT) [facility] Provider IMG SCAN REPORTS Final Resul t * CT Result Scan (12/17/2010 1:03 PM EDT) Result [facility] Provider IMG SCAN REPORTS Final Resul t * CT Result Scan (12/17/2010 1:00 PM EDT) Result [facility] Provider IMG SCAN REPORTS Final Resul t * CT Result Scan (12/17/2010 12:56 PM EDT) Result [facility] Provider IMG SCAN REPORTS Final Resul t * CT Result Scan (12/17/2010 12:52 PM EDT) [facility] Provider IMG SCAN REPORTS Final Resul t * CT Result Scan (12/17/2010 12:46 PM EDT) [facility] Provider IMG SCAN REPORTS Final Resul t * CT Result Scan (12/17/2010 12:41 PM EDT) Result [facility] Provider IMG SCAN REPORTS Final Resul t documented in this encounter Visit Diagnoses Not on filedocumented in this encounter Care Teams Retirement Manager Relationship Specialty Start Date End Date Sal Jose MD [address] [phone] PCP - General Family Medicine 10/16/23 documented as of this encounter
--- OUTSIDE RECORDS SUMMARY | 2025-04-07 15:17 | XMS_ITS | Encounter Summary ---
Author Organization [facility] and [facility] Address [address] [place] [address] Care Team Providers Care Hand Striper Name Role Phone Sal Jose MD Primary Care Provider [phone] Encounter Details Date Type Department Care Team (Late st Contact Info) Description 10/28/2023 Scanned Document [facility] SCHEDULING 25 [place], [place] [address] Provider, Historical . [phone] (Fax) Social History Tobacco Use Types Packs/Day [...] 1:45 PM EDT Office Visit Stroke 800 [facility] [place] [address] Kristine Kelly MD PhD 800 [place] [phone] 05/04/2025 1:00 PM EDT Follow Up Cardiovascular Medicine at 175 [facility] 175 [place] [address] Mike Hilario MD [address] [place] [address] 2 [place] [address] 06/22/2025 2:00 PM EST Office Visit [facility] Epilepsy [facility] Seizures at 800 [facility] 800 [facility] [place] [address] Virgie Mast MD PhD 800 [place] [phone] 08/09/2025 1:00 PM EST Office Visit Pulmonary Critical [place] 136 [facility] [address] [place] [address] Ramon Nixon MD 136 [facility] [address] [place] [phone] Ksenia Jain, 136 [facility] [address] [place], [place] [address] documented as of this encounter Procedures Procedure [...] MRI Result Scan (02/16/2022 10:58 AM EDT) Historical Provider IMG SCAN REPORTS Final Resul t documented in this encounter Visit Diagnoses Not on filedocumented in this encounter Care Teams Hand Striper Relationship Specialty Start Date End Date Sal Jose MD [facility]3 [facility] [address] [place] [phone] PCP - General Family Medicine 10/16/23 documented as of this encounter
--- OUTSIDE RECORDS SUMMARY | 2025-04-07 15:17 | XMS_ITS | Encounter Summary ---
Author Organization [facility] and [facility] Address [address] [place] [address] Care Team Providers Care Style Advisor Name Role Phone Sal Jose MD Primary Care Provider Encounter Details Date Type Department Care Team (Late st Contact Info) Description 08/14/2023 Transcribed Orders EXTERNAL REFERRAL SOURCE [address] [place] [address] Referral, Self Social History Tobacco Use Types [...] 1:45 PM EDT Office Visit Stroke 800 [place] [address] Kristine Kelly MD PhD 800 [place] [phone] 05/04/2025 1:00 PM EDT Follow Up Cardiovascular Medicine at 175 [facility] 175 [place], [place] [address] Mike Hilario MD [address] [place] [address] 2 [place] [phone] 06/22/2025 2:00 PM EST Office Visit [facility] Epilepsy & Seizures at 800 [facility] 800 [facility] [place] [address] Virgie Mast MD PhD 800 [place] [phone] 08/09/2025 1:00 PM EST Office [place] 136 [facility] [address] [place] [address] Ramon Nixon MD 136 [facility] [address] [place] [phone] Ksenia Jain, RT 136 [facility] [address] [place] [address] documented as of this encounter Visit Diagnoses Not on filedocumented in this encounter Care Teams Style Advisor Relationship Specialty Start Date End Date Sal Jose MD [facility] [place] [phone] PCP - General Family Medicine 10/16/23 documented as of this encounter
--- OUTSIDE RECORDS SUMMARY | 2025-04-07 15:17 | XMS_ITS | Clinical Summary ---
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 [place] [address] [address] [place]ULL [place]IC[place] 1[place] [id number] DENTAL - HSN FULL (MEDICAID) Care Teams Cut Order Hand Relationship Specialty Start Date End Date Cordell Saba [facility] 08/12/24 CASSIDY DE LA [facility]UENTE NPI ID: [id number] Address: [address] [place] [phone] Primary Care Physician [id number] Primary Care Provider 08/12/18
--- OUTSIDE RECORDS SUMMARY | 2025-04-07 15:17 | XMS_ITS | Encounter Summary ---
Author Organization [facility] Address [address] [address] Phone Care Team Providers Care Beauty Culture Teacher Name Role Phone Sal Jose MD Primary Care Provider [phone] Encounter Details Date Type Department Care Team (Late Contact Info) Description 05/25/2024 Scanned Document [facility] - [address] [address] Nain Cat MD [address] [place] [phone] Social History Tobacco Use Types Packs/Day [...] PM EDT Office Visit [facility] Stroke 800 [place] [address] Kristine Kelly MD PhD 800 [place] [address] 05/04/2025 1:00 PM EDT Follow Up Cardiovascular Medicine at 175 [facility] 175 [place] [address] Mike Hilario MD 175 [facility] 2 [place] [address] 06/22/2025 2:00 PM EST Office Visit Epilepsy & Seizures at 800 [facility] 800 [facility] [place] [address] Virgie Mast MD PhD 800 [place] [phone] 08/09/2025 1:00 PM EST Office Visit Pulmonary Critical [place] 136 [facility] [address] [place] [address] Ramon Nixon MD 136 [facility] 302 [place] [phone] Ksenia Jain, RT 136 [facility] 302 [place] [address] documented as of this encounter Visit Diagnoses Not on filedocumented in this encounter Additional Health Concerns Assessment Noted Time PHQ-9 Depression Total Score: 0 04/07/20 2:31 PM EDT documented as of this encounter Care Teams Beauty Culture Teacher Relationship Specialty Start Date End Date Sal Jose MD [address] [phone] PCP - General Family Medicine 10/16/23 documented as of this encounter
--- OUTSIDE RECORDS SUMMARY | 2025-04-07 15:17 | XMS_ITS | Encounter Summary ---
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) Social History Tobacco [...] 1:45 PM EDT Office Visit Stroke [address] [place] [address] Kristine Kelly MD PhD [address] [place] [phone] 05/04/2025 1:00 PM EDT Follow Up Cardiovascular Medicine at 175 [facility] 175 [place] [address] Mike Hilario MD 175 [facility] [address] 2 [place] [phone] 06/22/2025 2:00 PM EST Office Visit [facility] at [address] 800 [facility] [place], [place] [address] Virgie Mast MD PhD [address] [place] [phone] 08/09/2025 1:00 PM EST Office Visit Pulmonary Critical [place] 136 [facility] [address] [place] [address] Ramon Nixon MD 136 [facility] [address] [place] [phone] Ksenia Jain, RT 136 [facility] [address] [place], [place] [address] documented as of this encounter Results * Sedimentation rate (ESR) (05/20/2024 12:53 PM EDT) [facility] Sedimentation Rate (ESR) 4 0 - 20 mm/hr 05/20/2024 1:59 PM EDT [facility] DEPARTMENT OF LABORATORY MEDICINE Blood Venipuncture / Unknown 05/20/2024 12:53 PM EDT 05/20/2024 1:31 PM EDT us Provider Not In System LAB BLOOD ORDERABLES Evelin l Result [facility] DEPARTMENT OF LABORATORY MEDICINE [address] [place] [address], [facility] [phone] * (ABNORMAL) C-reactive protein (CRP) (04/15/2024 12:20 PM EDT) [facility] CRP, High Sensitivity 3.1(H) See comment mg/L 04/15/2024 3:42 PM EDT [facility] DEPARTMENT OF LABORATORY MEDICINE Comment: hs-CRP Risk According to AHA/CDC Guidelines (mg/L): <1.0 Lower relative cardiovascular risk. 1.0-3.0 Average relative cardiovascular risk. 3.1-10.0 Higher relative cardiovascular risk. Consider retesting in 1 to 2 weeks to exclude a benign transient elevation in the baseline CRP value secondary to infection or inflammation. >10.0 Persistent elevation, upon retesting, may be associated with infection and inflammation. Blood Venipuncture / Unknown 04/15/2024 12:20 PM EDT 04/15/2024 3:13 PM EDT us Provider Not In System LAB BLOOD ORDERABLES Evelin l Result Performing Organization Address City/[facility]/ZIP Co de Phone Number [facility] DEPARTMENT OF LABORATORY MEDICINE [address] [place] [address] * (ABNORMAL) Sedimentation rate (ESR) (04/15/2024 12:20 PM EDT) Sedimentation Rate (ESR) 24(H) 0 - 20 mm/hr 04/15/2024 3:41 PM EDT [facility] DEPARTMENT OF LABORATORY MEDICINE Blood Venipuncture / Unknown 04/15/2024 12:20 PM EDT 04/15/2024 2:54 PM EDT us Provider Not In System LAB BLOOD ORDERABLES Evelin l Result Performing Organization Address [facility]/ZIP Co de Phone Number [facility] DEPARTMENT OF LABORATORY MEDICINE [address] [place] [address] * (ABNORMAL) C-reactive protein (CRP) (03/17/2024 10:36 AM EDT) CRP, High Sensitivity 6.3(H) See comment mg/L 03/17/2024 11:47 AM EDT [facility] DEPARTMENT OF LABORATORY MEDICINE Comment: hs-CRP Risk According to AHA/CDC Guidelines (mg/L): <1.0 Lower relative cardiovascular risk. 1.0-3.0 Average relative cardiovascular risk. 3.1-10.0 Higher relative cardiovascular risk. Consider retesting in 1 to 2 weeks to exclude a benign transient elevation in the baseline CRP value secondary to infection or inflammation. >10.0 Persistent elevation, upon retesting, may be associated with infection and inflammation. Blood Venipuncture / Unknown 03/17/2024 10:36 AM EDT 03/17/2024 11:16 AM EDT us Provider Not In System LAB BLOOD ORDERABLES Evelin l Result Performing Organization Address City/[facility] Co de Phone Number [facility] DEPARTMENT OF LABORATORY MEDICINE [address] [place] [address] * (ABNORMAL) Sedimentation rate (ESR) (03/17/2024 10:36 AM EDT) Sedimentation Rate (ESR) 23(H) 0 - 20 mm/hr 03/17/2024 11:46 AM EDT [facility] DEPARTMENT OF LABORATORY MEDICINE Blood Venipuncture / Unknown 03/17/2024 10:36 AM EDT 03/17/2024 11:15 AM EDT us Provider Not In System LAB BLOOD ORDERABLES Evelin l Result Performing Organization Address [facility] de Phone Number [facility] DEPARTMENT OF LABORATORY MEDICINE [address] [place] [address] * (ABNORMAL) C-reactive protein (CRP) (02/20/2024 3:41 PM EDT) CRP, High Sensitivity 8.9(H) See comment mg/L 02/20/2024 4:36 PM EDT [facility] DEPARTMENT OF LABORATORY MEDICINE Comment: hs-CRP Risk According to AHA/CDC Guidelines (mg/L): <1.0 Lower relative cardiovascular risk. 1.0-3.0 Average relative cardiovascular risk. 3.1-10.0 Higher relative cardiovascular risk. Consider retesting in 1 to 2 weeks to exclude a benign transient elevation in the baseline CRP value secondary to infection or inflammation. >10.0 Persistent elevation, upon retesting, may be associated with infection and inflammation. Blood Venipuncture / Unknown 02/20/2024 3:41 PM EDT 02/20/2024 4:07 PM EDT us Provider Not In System LAB BLOOD ORDERABLES Evelin l Result Performing Organization Address City/[facility] Co de Phone Number [facility] DEPARTMENT OF LABORATORY MEDICINE [address] [place] [address] * Sedimentation rate (ESR) (02/20/2024 3:41 PM EDT) Sedimentation Rate (ESR) 18 0 - 20 mm/hr 02/20/2024 7:04 PM EDT [facility] DEPARTMENT OF LABORATORY MEDICINE Blood Venipuncture / Unknown 02/20/2024 3:41 PM EDT 02/20/2024 4:04 PM EDT us Provider Not In System LAB BLOOD ORDERABLES Evelin l Result Performing Organization Address [facility] de Phone Number [facility] DEPARTMENT OF LABORATORY MEDICINE [address] [place] [address] * (ABNORMAL) C-reactive protein (CRP) (12/09/2023 1:52 PM EDT) CRP, High Sensitivity 4.4(H) See comment mg/L 12/09/2023 4:44 PM EDT [facility] DEPARTMENT OF LABORATORY MEDICINE Comment: hs-CRP Risk According to AHA/CDC Guidelines (mg/L): <1.0 Lower relative cardiovascular risk. 1.0-3.0 Average relative cardiovascular risk. 3.1-10.0 Higher relative cardiovascular risk. Consider retesting in 1 to 2 weeks to exclude a benign transient elevation in the baseline CRP value secondary to infection or inflammation. >10.0 Persistent elevation, upon retesting, may be associated with infection and inflammation. Blood Venipuncture / Unknown 12/09/2023 1:52 PM EDT 12/09/2023 4:10 PM EDT us Provider Not In System LAB BLOOD ORDERABLES Evelin l Result Performing Organization Address [facility] Co de Phone Number [facility] DEPARTMENT OF LABORATORY MEDICINE [address] [place] [address] * Sedimentation rate (ESR) (12/09/2023 1:52 PM EDT) Sedimentation Rate (ESR) 10 0 - 20 mm/hr 12/09/2023 5:08 PM EDT [facility] DEPARTMENT OF LABORATORY MEDICINE Blood Venipuncture / Unknown 12/09/2023 1:52 PM EDT 12/09/2023 4:20 PM EDT us Provider Not In System LAB BLOOD ORDERABLES Evelin l Result Performing Organization Address [facility] de Phone Number [facility] DEPARTMENT OF LABORATORY MEDICINE [address] [place] [address] documented in this encounter Visit Diagnoses Diagnosis 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
--- OUTSIDE RECORDS SUMMARY | 2025-04-07 15:17 | XMS_ITS | Encounter Summary ---
Author Organization [facility] and [facility] Address [address] [place] [phone] Care Team Providers Care Human Resources Operations Manager Name Role Phone Sal Jose MD Primary Care Provider [phone] Encounter Details Date Type Department Care Team (Late st Contact Info) Description 08/31/2024 Transcribed Orders [facility] Laboratory Specimens [address] [place], [place] [address] System, Provider Not In CRST syndrome (HC [...] PM EDT Office Visit [facility] St[facility] 800 [place], [place] [phone] Kristine Kelly MD PhD 800 [place] [phone] 05/04/2025 1:00 PM EDT Follow Up Cardiovascular Medicine at 175 [facility] 175 [facility] [place] [address] Mike Hilario MD 175 [facility] [address] [place] [phone] 06/22/2025 2:00 PM EST Office Visit [facility] at 800 [facility] 800 [facility] [place] [address] Virgie Mast MD PhD [address] [place] [phone] 08/09/2025 1:00 PM EST Office Visit Pulmonary Critical [place] 136 [facility] 302 [place], [place] [address] Ramon Nixon MD 136 [facility] 302 [place] [phone] Ksenia Jain, RT 136 [facility] 302 [place], [place] [phone] Scheduled Orders Name Type Priority Associated Diagnoses Orde r Schedule C-reactive protein (CRP) Lab Routine CRST syndrome (HC Code) Expected: 08/31/2024, Expires: 10/29/2025 CBC and differential Lab - Test Panel Order Routine CRST syndrome (HC Code) Expected: 08/31/2024, Expires: 10/29/2025 Comprehensive metabolic panel Lab - Test Panel Order Routine CRST syndrome (HC Code) Expected: 08/31/2024, Expires: 10/29/2025 Sedimentation rate (ESR) Lab Routine CRST syndrome (HC Code) Expected: 08/31/2024, Expires: 10/29/2025 documented as of this encounter Visit Diagnoses Diagnosis 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
--- OUTSIDE RECORDS SUMMARY | 2025-04-07 15:17 | XMS_ITS | Encounter Summary ---
Author Organization [facility] Address Unknown Care Team Providers Care Figure Refinisher And Repairer Name Role Phone Sal Jose MD Primary Care Provider [phone] Encounter Details Date Type Department Care Team (Late st Contact Info) Description 08/27/2023 Scanned Document Pulmonary Critical [place] 136 [facility] [address] [place] [address] External, Provider Social History Tobacco Use Types [...] 1:45 PM EDT Office Visit Stroke 800 [place] [address] Kristine Kelly MD PhD 800 [place] [phone] 05/04/2025 1:00 PM EDT Follow Up Cardiovascular Medicine at 175 [facility] 175 [place] [address] Mike Hilario MD 175 [facility] 2 [place] [phone] 06/22/2025 2:00 PM EST Office Visit [facility] at 800 [facility] 800 [facility] [place] [address] Virgie Mast MD PhD 800 [place] [phone] 08/09/2025 1:00 PM EST Office Visit Pulmonary Critical [place] 136 [facility] [address] [place] [address] Ramon Nixon MD 136 [facility] [address] [place] [phone] Ksenia Jain, 136 [facility] [address] [place] [address] documented as of this encounter Procedures Procedure Name Priority Date/Time Associated Diagnosis Comments CARDIAC ECHO RESULT SCAN Routine 08/27/2023 documented in this encounter Results * Cardiac Echo Result Scan (08/27/2023) us Provider External CV CARDIAC REPORT (CVR) Final Result documented in this encounter Visit Diagnoses Not on filedocumented in this encounter Care Teams Figure Refinisher And Repairer Relationship Specialty Start Date End Date Sal Jose MD 1033 [facility] [address] [place] [phone] PCP - General Family Medicine 10/16/23 documented as of this encounter
--- OUTSIDE RECORDS SUMMARY | 2025-04-07 15:17 | XMS_ITS | Patient Health Record ---
Author Organization [facility] Address [address] [place] [address] Care Team Providers Care Audit Officer Name Role Phone Jayant Walker Primary Care Provider Venkatesh Mauro Unavailable [phone] Allergies Allergen (clinical drug ingredient) Drug/Non Drug [...] Status Risk Notes Problem Colon cancer screening (463892900) Colon cancer screening (Z12.11) Active confirmed Problem Irregular bowel habits (141038714) Irregular bowel habits (R19.8) Active confirmed Problem Long-term current use of anticoagulant (244926264) Anticoagulant long-term use (Z79.01) Active confirmed Problem Systemic sclerosis (15863325) 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) Active confirmed Problem Gastroesophageal reflux disease (514929104) GERD without esophagitis (K21.9) Active confirmed Problem History of polyp of colon (situation) (913291279) History of colon polyps (Z86.0100) Active confirmed [...] N/A Encounters Encounter Location Date Provider Diagnosis [facility] [address] [place] [phone] 02/08/2025 Venkatesh Marsh History of colon gely yps Z86.0100 ; GERD without esophagitis K21.9 ; Colon cancer screening Z12.11 ; Anticoagulant long-term use Z79.01 ; Irregular bowel habits R19.8 and Scleroderma of esophagus M34.1 [facility] [address] [place] [phone] 02/08/2025 Venkatesh Marsh Assessments Encounter Date Diagnosis [...] to speak with her stroke doctor at [facility] who prescribes her clopidogrel so as to be sure that is not contraindicated from their standpoint. I did recommend a follow-up upper endoscopy given the description of her previous endoscopies and recommendations from her manager physical in [place], [place]. She is not having any [...] but was advised to speak with her [facility] physicians about those recommendations to be sure there is no contraindication to them. I advised her that she might need Lovenox for bridging while off the clopidogrel and pentoxifylline. However, I advised her that would be up to the physicians at [facility]. These procedures will be scheduled for her at some point in the Fall. I do not think they need to be done sooner from a clinical standpoint based on no worrisome symptoms at the present time. I wanted to leave enough time for us to get information and ultimate clearance from all of her physicians at [facility]. She clearly has comorbidities including pulmonary issues, coronary artery disease, and cerebrovascular disease. I advised her to try to get clearance letters and summaries of her medical issues from the [facility] physician such that we can share them with the medical staff and anesthesiologist at [facility] prior to her procedures. If it turns out that her [facility] physicians do not think she is stable [...] to speak with her stroke doctor at [facility] who prescribes her clopidogrel so as to be sure that is not contraindicated from their standpoint. I did recommend a follow-up upper endoscopy given the description of her previous endoscopies and recommendations from her manager physical in [place]. She is not having any [...] but was advised to speak with her [facility] physicians about those recommendations to be sure there is no contraindication to them. I advised her that she might need Lovenox for bridging while off the clopidogrel and pentoxifylline. However, I advised her that would be up to the physicians at [facility]. These procedures will be scheduled for her at some point in the Fall. I do not think they need to be done sooner from a clinical standpoint based on no worrisome symptoms at the present time. I wanted to leave enough time for us to get information and ultimate clearance from all of her physicians at [facility]. She clearly has comorbidities including pulmonary issues, coronary artery disease, and cerebrovascular disease. I advised her to try to get clearance letters and summaries of her medical issues from the [facility] physician such that we can share them with the medical staff and anesthesiologist at [facility] prior to her procedures. If [...] (ICD-10 - Z12.11) Need names of your [facility] doctors and we will need letters with [...] to speak with her stroke doctor at [facility] who prescribes her clopidogrel so as to be sure that is not contraindicated from their standpoint. I did recommend a follow-up upper endoscopy given the description of her previous endoscopies and recommendations from her manager physical in [place]. She is not having any [...] but was advised to speak with her [facility] physicians about those recommendations to be sure there is no contraindication to them. I advised her that she might need Lovenox for bridging while off the clopidogrel and pentoxifylline. However, I advised her that would be up to the physicians at [facility]. These procedures will be scheduled for her at some point in the Fall. I do not think they need to be done sooner from a clinical standpoint based on no worrisome symptoms at the present time. I wanted to leave enough time for us to get information and ultimate clearance from all of her physicians at [facility]. She clearly has comorbidities including pulmonary issues, coronary artery disease, and cerebrovascular disease. I advised her to try to get clearance letters and summaries of her medical issues from the [facility] physician such that we can share them with the medical staff and anesthesiologist at [facility] prior to her procedures. If it turns out that her [facility] physicians do not think she is stable [...] to speak with her stroke doctor at [facility] who prescribes her clopidogrel so as to be sure that is not contraindicated from their standpoint. I did recommend a follow-up upper endoscopy given the description of her previous endoscopies and recommendations from her manager physical in [place]. She is not having any [...] but was advised to speak with her [facility] physicians about those recommendations to be sure there is no contraindication to them. I advised her that she might need Lovenox for bridging while off the clopidogrel and pentoxifylline. However, I advised her that would be up to the physicians at [facility]. These procedures will be scheduled for her at some point in the Fall. I do not think they need to be done sooner from a clinical standpoint based on no worrisome symptoms at the present time. I wanted to leave enough time for us to get information and ultimate clearance from all of her physicians at [facility]. She clearly has comorbidities including pulmonary issues, coronary artery disease, and cerebrovascular disease. I advised her to try to get clearance letters and summaries of her medical issues from the [facility] physician such that we can share them with the medical staff and anesthesiologist at [facility] prior to her procedures. If it turns out that her [facility] physicians do not think she is stable [...] to speak with her stroke doctor at [facility] who prescribes her clopidogrel so as to be sure that is not contraindicated from their standpoint. I did recommend a follow-up upper endoscopy given the description of her previous endoscopies and recommendations from her manager physical in [place]. She is not having any [...] but was advised to speak with her [facility] physicians about those recommendations to be sure there is no contraindication to them. I advised her that she might need Lovenox for bridging while off the clopidogrel and pentoxifylline. However, I advised her that would be up to the physicians at [facility]. These procedures will be scheduled for her at some point in the Fall. I do not think they need to be done sooner from a clinical standpoint based on no worrisome symptoms at the present time. I wanted to leave enough time for us to get information and ultimate clearance from all of her physicians at [facility]. She clearly has comorbidities including pulmonary issues, coronary artery disease, and cerebrovascular disease. I advised her to try to get clearance letters and summaries of her medical issues from the [facility] physician such that we can share them with the medical staff and anesthesiologist at [facility] prior to her procedures. If it turns out that her [facility] physicians do not think she is stable [...] to speak with her stroke doctor at [facility] who prescribes her clopidogrel so as to be sure that is not contraindicated from their standpoint. I did recommend a follow-up upper endoscopy given the description of her previous endoscopies and recommendations from her manager physical in [place]. She is not having any [...] but was advised to speak with her [facility] physicians about those recommendations to be sure there is no contraindication to them. I advised her that she might need Lovenox for bridging while off the clopidogrel and pentoxifylline. However, I advised her that would be up to the physicians at [facility]. These procedures will be scheduled for her at some point in the Fall. I do not think they need to be done sooner from a clinical standpoint based on no worrisome symptoms at the present time. I wanted to leave enough time for us to get information and ultimate clearance from all of her physicians at [facility]. She clearly has comorbidities including pulmonary issues, coronary artery disease, and cerebrovascular disease. I advised her to try to get clearance letters and summaries of her medical issues from the [facility] physician such that we can share them with the medical staff and anesthesiologist at [facility] prior to her procedures. If it turns out that her [facility] physicians do not think she is stable [...] Name:Venkatesh Marsh , 06/01/2025 08:30:00 AM, [address] [facility] , [place], [place], [id number], Insurance Providers Payer Name Payer Address Payer Phone Subscriber Number Group Number Insured Name Patient Relationship to Insured Coverage Start Date Coverage End Date MEDICARE OF [place] [address] [place] [address] [id number] JERRICA Mcdonough ROMAN Self - patient is the insured 5 MEDICAID OF [facility] [address] [place] [address] [id number] JERRICA Mcdonough ROMAN Self - patient is the insured Medical (General) History Medical History History ICD Code 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
--- OUTSIDE RECORDS SUMMARY | 2025-04-07 15:17 | XMS_ITS | Encounter Summary ---
Author Organization [facility] Address Unknown Care Team Providers Care Concrete Sculptor Name Role Phone Sal Jose MD Primary Care Provider [phone] Encounter Details Date Type Department Care Team (Late st Contact Info) Description 11/19/2022 Scanned Document Pulmonary Critical [place] 136 [facility] [address] [place] [address] External, Provider Social History Tobacco Use Types [...] 1:45 PM EDT Office Visit Stroke 800 [place] [address] Kristine Kelly MD PhD 800 [place] [phone] 05/04/2025 1:00 PM EDT Follow Up Cardiovascular Medicine at 175 [facility] 175 [place] [address] Mike Hilario MD 175 [facility] 2 [place] [phone] 06/22/2025 2:00 PM EST Office Visit [facility] at 800 [facility] 800 [facility] [place] [address] Virgie Mast MD PhD 800 [place] [phone] 08/09/2025 1:00 PM EST Office Visit Pulmonary Critical [place] 136 [facility] [address] [place] [address] Ramon Nixon MD 136 [facility] [address] 302 [place] [address] Ksenia Jain, RT 136 [facility] 302 [place] [address] documented as of this encounter Visit Diagnoses Not on filedocumented in this encounter Care Teams Concrete Sculptor Relationship Specialty Start Date End Date Sal Jose MD [facility] [address] [phone] PCP - General Family Medicine 10/16/23 documented as of this encounter
--- OUTSIDE RECORDS SUMMARY | 2025-04-07 15:17 | XMS_ITS | Encounter Summary ---
Author Organization [facility] Address Unknown Care Team Providers Care Java Web Application Developer Name Role Phone Sal Jose MD Primary Care Provider [phone] Encounter Details Date Type Department Care Team (Late st Contact Info) Description 11/27/2021 Scanned Document Pulmonary Critical [place] 136 [facility] [address] [place] [address] Gaviota Rivera, OT Social History Tobacco Use [...] 1:45 PM EDT Office Visit Stroke 800 [facility] [place] [address] Kristine Kelly MD PhD 800 [place] [address] 05/04/2025 1:00 PM EDT Follow Up Cardiovascular Medicine at 175 [facility] 175 [place] [address] Mike Hilario MD 175 [facility] 2 [place] [address] 06/22/2025 2:00 PM EST Office Visit [facility] Ep[facility] Seizures at 800 [facility] 800 [facility] [place] [address] Virgie Mast MD PhD 800 [place] [address] 08/09/2025 1:00 PM EST Office Visit Pulmonary Critical [place] 136 [facility] [address] [place] [address] Ramon Nixon MD 136 [facility] [address] [place] [address] Ksenia Jain, RT 136 [facility] [address] [place] [address] documented as of this encounter Visit Diagnoses Not on filedocumented in this encounter Care Teams Java Web Application Developer Relationship Specialty Start Date End Date Sal Jose MD 1033 [facility] [address] [place] [phone] PCP - General Family Medicine 10/16/23 documented as of this encounter
--- OUTSIDE RECORDS SUMMARY | 2025-04-07 15:17 | XMS_ITS | Encounter Summary ---
Author Organization [facility] Address [address] [place] [phone] Care Team Providers Care Talent Acquisition Project Manager Name Role Phone Sal Jose MD Primary Care Provider [phone] Encounter Details Date Type Department Care Team (Late Contact Info) Description 10/28/2023 Scanned Document Neurosurgery at [address] [facility] 800 [place] [address] Joao Loredo MD [address] [place] [phone] Social History Tobacco Use Types Packs/Day [...] 1:45 PM EDT Office Visit Stroke 800 [place], [place] [address] Kristine Kelly MD PhD 800 [place] [phone] 05/04/2025 1:00 PM EDT Follow Up Cardiovascular Medicine at [address] [place] [address] Mike Hilario MD 175 [facility] 2 [place] [phone] 06/22/2025 2:00 PM EST Office Visit [facility] at [address] [facility] [address] [facility] [place] [address] Virgie Mast MD PhD 800 [facility] [place] [address] 08/09/2025 1:00 PM EST Office Visit Pulmonary Critical [place] 136 [facility] [address] [place] [address] Ramon Nixon MD 136 [facility] [address] [place] [address] Kseina Jain, RT 136 [facility] [address] [place] [address] documented as of this encounter Procedures Procedure [...] CT Result Scan (02/15/2022 11:06 AM EDT) us Historical Provider IMG SCAN REPORTS Final Resul t * MRI Result Scan (02/07/2022 11:23 AM EDT) us Historical Provider IMG SCAN [...] on filedocumented in this encounter Care Teams Talent Acquisition Project Manager Relationship Specialty Start Date End Date Sal Jose MD 1033 [facility] [address] [place] [phone] PCP - General Family Medicine 10/16/23 documented as of this encounter
--- OUTSIDE RECORDS SUMMARY | 2025-04-07 15:17 | XMS_ITS | Encounter Summary ---
Author Organization [facility] Address [address] [place] [phone] Care Team Providers Care Dice Manager Name Role Phone Sal Jose MD Primary Care Provider [phone] Encounter Details Date Type Department Care Team (Late st Contact Info) Description 10/27/2023 Scanned Document [facility] SCHEDULING 25 [place], [place] [address] Provider, Historical . [phone] (Fax) Social History Tobacco Use Types Packs/Day [...] 1:45 PM EDT Office Visit Stroke 800 [facility] [place] [address] Kristine Kelly MD PhD 800 [place] [address] 05/04/2025 1:00 PM EDT Follow Up Cardiovascular Medicine at 175 [facility] 175 [place] [address] Mike Hilario MD [address] [place] [address] 2 [place] [address] 06/22/2025 2:00 PM EST Office Visit [facility] Seizures at 800 [facility] 800 [facility] [place] [address] Virgie Mast MD PhD 800 [place] [address] 08/09/2025 1:00 PM EST Office Visit Pulmonary Critical [place] 136 [facility] [address] [place] [address] Ramon Nixon MD 136 [facility] [address] [place] [phone] Ksenia Jain, RT 136 [facility] [address] [place], [place] [address] documented as of this encounter Visit Diagnoses Not on filedocumented in this encounter Care Teams Dice Manager Relationship Specialty Start Date End Date Sal Jose MD [address] [phone] PCP - General Family Medicine 10/16/23 documented as of this encounter
--- OUTSIDE RECORDS SUMMARY | 2025-04-07 15:17 | XMS_ITS | Encounter Summary ---
Author Organization [facility] Address [address] [place] [phone] Care Team Providers Care Wood Mill Supervisor Name Role Phone Sal Jose MD Primary Care Provider Encounter Details Date Type Department Care Team (Late st Contact Info) Description 10/17/2023 Scanned Document Stroke 800 [place] [address] Kristine Kelly MD PhD 800 [place] [phone] Social History Tobacco Use Types Packs/Day Years [...] 1:45 PM EDT Office Visit Stroke 800 [place] [address] Kristine Kelly MD PhD 800 [place] [phone] 05/04/2025 1:00 PM EDT Follow Up Cardiovascular Medicine at [address] [place], [place] [address], [place] [address] Mike Hilario MD 175 [facility] 2 [place] [address] 06/22/2025 2:00 PM EST Office Visit [facility] Ep[facility] Seizures at 800 [facility] 800 [facility] [place] [address] Virgie Mast MD PhD 800 [place] [address] 08/09/2025 1:00 PM EST Office Visit Pulmonary Critical [place] 136 [facility] [address] [place], [place] [address] Ramon Nixon MD 136 [facility] 302 [place] [phone] Ksenia Jain, RT 136 [facility] [address] [place] [address] documented as of this encounter Visit Diagnoses Not on filedocumented in this encounter Care Teams Wood Mill Supervisor Relationship Specialty Start Date End Date Sal Jose MD [address] [phone] PCP - General Family Medicine 10/16/23 documented as of this encounter
--- OUTSIDE RECORDS SUMMARY | 2025-04-07 15:17 | XMS_ITS | Encounter Summary ---
Author Organization [facility] Address Unknown Care Team Providers Care Loss Prevention/Safety District Manager Name Role Phone Sal Jose MD Primary Care Provider [phone] Reason for Referral * General (Routine) - New Request Specialty Diagnoses / Procedures Referred By Contac t Referred To Contact Pulmonary Disease Procedures Pulmonary Function Test ([facility]) Ramon Nixon MD [address] [place] [address] 302 [place] [address] Phone: tel: fax: Referral ID Status Reason Start Date Expiration Date V isits Requested Visits Authorized [id number] New Request 08/31/2024 08/31/2025 1 1 Encounter Details Date Type Department Care Team (Late st Contact Info) Description 08/31/2024 Scanned Document Pulmonary Critical [place] 136 [facility] 302 [place], [place] [phone] Ramon Nixon MD [address] [place] [address] [address] [place] [address] Social History Tobacco Use Types [...] 1:45 PM EDT Office Visit Stroke 800 [place] [address] Kristine Kelly MD PhD 800 [place] [address] 05/04/2025 1:00 PM EDT Follow Up Cardiovascular Medicine at 175 [facility] 175 [place] [address] Mike Hilario MD 175 [facility] 2 [place] [address] 06/22/2025 2:00 PM EST Office Visit Epilepsy & Seizures at 800 [facility] 800 [place], [place] [address] Virgie Mast MD PhD 800 [place] [address] 08/09/2025 1:00 PM EST Office Visit Pulmonary Critical [place] 136 [facility] [address] [place], [place] [address] Ramon Nixon MD 136 [facility] 302 [place] [address] Ksenia Jain, RT 136 [facility] 302 [place], [place] [address] documented as of this encounter Procedures Procedure [...] documented as of this encounter Care Teams Loss Prevention/Safety District Manager Relationship Specialty Start Date End Date Sal Jose MD [address] [place] [phone] PCP - General Family Medicine 10/16/23 documented as of this encounter
--- OUTSIDE RECORDS SUMMARY | 2025-04-07 15:17 | XMS_ITS | Encounter Summary ---
Author Organization [facility] and [facility] Address [address] [place] [phone] Care Team Providers Care School Photographs Detailer Name Role Phone Sal Jose MD Primary Care Provider Reason for Visit * Reason Onset Date Comments Holter/Event Monitor 11/13/2023 Trying to E nroll Pt for MCT monitor Encounter Details Date Type Department Care Team (Late st Contact Info) Description 11/13/2023 Telephone [facility] Stroke 800 [place], [place] [address] Kristine Kelly MD PhD 800 [place] [phone] Holter/Event Monitor (Trying to Enroll Pt for [...] for the results. * Telephone Encounter - Kristien Kelly MD PhD - 11/14/2023 9:30 PM [...] 1:45 PM EDT Office Visit Stroke 800 [facility] [place] [address] Kristine Kelly MD PhD 800 [place] [address] 05/04/2025 1:00 PM EDT Follow Up Cardiovascular Medicine at [address] [place] [address] Mike Hilario MD [address] [place] [address] 2 [place] [address] 06/22/2025 2:00 PM EST Office Visit [facility] Epilepsy & Seizures at 800 [facility] 800 [facility] [place] [address] Virgie Mast MD PhD 800 [place] [address] 08/09/2025 1:00 PM EST Office Visit [place] 136 [facility] [address] [place] [address] Ramon Nixon MD 136 [facility] [address] 302 [place] [address] Ksenia Jain, RT 136 [facility] [address] [place], [place] [address] documented as of this encounter Visit Diagnoses Not on filedocumented in this encounter Care Teams School Photographs Detailer Relationship Specialty Start Date End Date Sal Jose MD [facility] [address] PCP - General Family Medicine 10/16/23 documented as of this encounter
--- OUTSIDE RECORDS SUMMARY | 2025-04-07 15:17 | XMS_ITS | Encounter Summary ---
Author Organization [facility] Address Unknown Care Team Providers Care Medart Operator Name Role Phone Sal Jose MD Primary Care Provider [phone] Encounter Details Date Type Department Care Team (Late st Contact Info) Description 05/11/2024 Scanned Document [place]monary Critical [place] 136 [facility] [address] [place], [place] [address] Ramon Nixon MD 136 [facility] 302 [place] [address] Social History Tobacco Use Types [...] PM EDT Office Visit [facility] Stroke 800 [place], [place] [address] Kristine Kelly MD PhD 800 [place] [address] 05/04/2025 1:00 PM EDT Follow Up Cardiovascular Medicine at 175 [facility] 175 [facility] [address] Mike Hilario MD 175 [facility] [address] 2 [place] [address] 06/22/2025 2:00 PM EST Office Visit Epilepsy & Seizures at 800 [facility] 800 [facility] [place] [address] Virgie Mast MD PhD 800 [place] [address] 08/09/2025 1:00 PM EST Office Visit [place]monary Critical [place] 136 [facility] [address] [place] [address] Ramon Nixon MD 136 [facility] 302 [place] [address] Ksenia Jain, RT 136 [facility] 302 [place] [address] documented as of this encounter Visit Diagnoses Not on filedocumented in this encounter Additional Health Concerns Assessment Noted Time PHQ-9 Depression Total Score: 0 04/07/20 24 2:31 PM EDT documented as of this encounter Care Teams Medart Operator Relationship Specialty Start Date End Date Sal Jose MD [facility]3 [facility] [address] [place] [phone] PCP - General Family Medicine 10/16/23 documented as of this encounter
--- OUTSIDE RECORDS SUMMARY | 2025-04-07 15:17 | XMS_ITS | Encounter Summary ---
Author Organization [facility] Address Unknown Care Team Providers Care Strategic Marketing Associate Name Role Phone Sal Jose MD Primary Care Provider [phone] Encounter Details Date Type Department Care Team (Late st Contact Info) Description 11/27/2021 Scanned Document Pulmonary Critical [place] 136 [facility] [address] [place] [address] External, Provider Social History Tobacco Use Types [...] 1:45 PM EDT Office Visit Stroke 800 [place] [address] Kristine Kelly MD PhD 800 [place] [address] 05/04/2025 1:00 PM EDT Follow Up Cardiovascular Medicine at 175 [facility] 175 [place] [address] Mike Hilario MD 175 [facility] 2 [place] [address] 06/22/2025 2:00 PM EST Office Visit [facility] Epilepsy & Seizures at 800 [facility] 800 [facility] [place] [place] [address] Virgie Mast MD PhD 800 [place] [address] 08/09/2025 1:00 PM EST Office Visit Pulmonary Critical [place] 136 [facility] [address] [place] [address] Ramon Nixon MD 136 [facility] [address] 302 [place] [address] Ksenia Jain, RT 136 [facility] 302 [place] [address] documented as of this encounter Visit Diagnoses Not on filedocumented in this encounter Care Teams Strategic Marketing Associate Relationship Specialty Start Date End Date Sal Jose MD [facility] [address] [phone] PCP - General Family Medicine 10/16/23 documented as of this encounter
--- OUTSIDE RECORDS SUMMARY | 2025-04-07 15:17 | XMS_ITS | Encounter Summary ---
Author Organization [facility] and [facility] Address [address] [place] [phone] Care Team Providers Care E Commerce Specialist Name Role Phone Sal Jose MD Primary Care Provider Encounter Details Date Type Department Care Team (Late Contact Info) Description 10/28/2023 Scanned Document Neurosurgery at [address] [facility] 800 [place] [address] Joao Loredo MD [address] [place] [phone] Social History Tobacco Use Types Packs/Day [...] 1:45 PM EDT Office Visit Stroke 800 [place], [place] [address] Kristine Kelly MD PhD [address] [place] [phone] 05/04/2025 1:00 PM EDT Follow Up Cardiovascular Medicine at [address] [place] [address] Mike Hilario MD [address] [facility] [address] 2 [place] [address] 06/22/2025 2:00 PM EST Office Visit [facility] Epilepsy & Seizures at [address] [facility] [address] [facility] [place] [address] Virgie Mast MD PhD 800 [place] [address] 08/09/2025 1:00 PM EST Office Visit [place] Critical [place] 136 [facility] [address] [place] [address] Ramon Nixon MD 136 [facility] [address] 302 [place] [address] Ksenia Jain, RT 136 [facility] [address] [place] [address] documented as of this encounter Visit Diagnoses Not on filedocumented in this encounter Care Teams E Commerce Specialist Relationship Specialty Start Date End Date Sal Jose MD [facility]3 [address] [address] PCP - General Family Medicine 10/16/23 documented as of this encounter
--- OUTSIDE RECORDS SUMMARY | 2025-04-07 15:17 | XMS_ITS | Encounter Summary ---
Author Organization [facility] Address Unknown Care Team Providers Care Child Care Director Name Role Phone Sal Jose MD Primary Care Provider [phone] Encounter Details Date Type Department Care Team (Late st Contact Info) Description 11/19/2022 Scanned Document Pulmonary Critical [place] 136 [facility] [address] [place] [address] External, Provider Social History Tobacco Use Types [...] 1:45 PM EDT Office Visit Stroke 800 [place] [address] Kristine Kelly MD PhD 800 [place] [address] 05/04/2025 1:00 PM EDT Follow Up Cardiovascular Medicine at 175 [facility] 175 [place] [address] Mike Hilario MD [address] [facility] 2 [place] [address] 06/22/2025 2:00 PM EST Office Visit [facility] Epilepsy & Seizures at 800 [facility] 800 [facility] [place] [address] Virgie Mast MD PhD 800 [place] [address] 08/09/2025 1:00 PM EST Office Visit [place]monary Critical [place] 136 [facility] [address] [place] [address] Ramon Nixon MD 136 [facility] [address] 302 [place] [address] Ksenia Jain, RT 136 [facility] 302 [place] [address] documented as of this encounter Visit Diagnoses Not on filedocumented in this encounter Care Teams Child Care Director Relationship Specialty Start Date End Date Sal Jose MD [facility] [phone] PCP - General Family Medicine 10/16/23 documented as of this encounter
--- OUTSIDE RECORDS SUMMARY | 2025-04-07 15:18 | XMS_ITS | Encounter Summary ---
Author Organization [facility] Address Unknown Care Team Providers Care Employee Relations Consultant Name Role Phone Sal Jose MD Primary Care Provider [phone] Encounter Details Date Type Department Care Team (Late st Contact Info) Description 08/13/2023 Scanned Document Pulmonary Critical [place] 136 [facility] [address] [place] [address] External, Provider Social History Tobacco Use Types [...] 1:45 PM EDT Office Visit Stroke 800 [place] [address] Kristine Klely MD PhD 800 [place] [address] 05/04/2025 1:00 PM EDT Follow Up Cardiovascular Medicine at 175 [facility] 175 [place] [address] Mike Hilario MD 175 [facility] 2 [place] [address] 06/22/2025 2:00 PM EST Office Visit [facility] Epilepsy & Seizures at 800 [facility] 800 [facility]Note 2] [place] [address] Virgie Mast MD PhD 800 [place] [address] 08/09/2025 1:00 PM EST Office Visit [place]monary Critical [place] 136 [facility] [address] [place] [address] Ramon Nixon MD 136 [facility] 302 [place] [address] Ksenia Jain, RT 136 [facility] 302 [place] [address] documented as of this encounter Visit Diagnoses Not on filedocumented in this encounter Care Teams Employee Relations Consultant Relationship Specialty Start Date End Date Sal Jose MD [facility]3 [address] [phone] PCP - General Family Medicine 10/16/23 documented as of this encounter
--- OUTSIDE RECORDS SUMMARY | 2025-04-07 15:18 | XMS_ITS | Encounter Summary ---
Author Organization [facility] Address Unknown Care Team Providers Care Clinical Education Assistant Name Role Phone Sal Jose MD Primary Care Provider [phone] Encounter Details Date Type Department Care Team (Late st Contact Info) Description 08/13/2023 Scanned Document Pulmonary Critical [place] 136 [facility] [address] [place] [address] External, Provider Social History Tobacco Use Types [...] 1:45 PM EDT Office Visit Stroke 800 [place] [address] Kristine Kelly MD PhD 800 [place] [address] 05/04/2025 1:00 PM EDT Follow Up Cardiovascular Medicine at 175 [facility] 175 [place] [address] Mike Hilario MD 175 [facility] 2 [place] [address] 06/22/2025 2:00 PM EST Office Visit [facility] Epilepsy & Seizures at 800 [facility] 800 [facility] [place] [place] [address] Virgie Mast MD PhD 800 [place] [address] 08/09/2025 1:00 PM EST Office Visit [place] 136 [facility] [address] [place] [address] Ramon Nixon MD 136 [facility] [address] [place] [address] Ksenia Jain, RT 136 [facility] 302 [place] [address] documented as of this encounter Visit Diagnoses Not on filedocumented in this encounter Care Teams Clinical Education Assistant Relationship Specialty Start Date End Date Sal Jose MD [facility]3 [address] [phone] PCP - General Family Medicine 10/16/23 documented as of this encounter
== END 2025-04-07 15:30 | disposition home or self-care (01) ==
LOC: HO.HMCFM 14:00
PROVIDERS: PCP Family Medicine; Visit Provider Family Medicine
DX: I10 Essential (primary) hypertension (principal); E03.9 Hypothyroidism, unspecified; E66.9 Obesity, unspecified; Z68.34 Body mass index [BMI] 34.0-34.9, adult; M25.561 Pain in right knee; M17.11 Unilateral primary osteoarthritis, right knee

== ENCOUNTER → 2025-04-07 14:00 | Outpatient (BNVA) | payer MEDICARE, MEDICAID, SELFPAY | PROVIDERS: PCP Family Medicine; Visit Provider Family Medicine | DX: I10 Essential (primary) hypertension (principal); E03.9 Hypothyroidism, unspecified; M17.11 Unilateral primary osteoarthritis, right knee; G89.29 Other chronic pain; E66.9 Obesity, unspecified; Z68.34 Body mass index [BMI] 34.0-34.9, adult | CPT/HCPCS: 99212 ==

== ENCOUNTER 2025-04-12 13:45 | Outpatient (AMB) | payer MEDICARE, MEDICAID, SELFPAY ==
[2025-04-12 13:51] VITALS: BP 128/68; PULSE 78; BMI 34.2
--- NOTE | 2025-04-12 13:51 | A.OFFVIS_ITS ---
Vital Signs 04/12/25 13:51 Height 5 ft 8 in Weight 224 lb 13.944 oz BMI 34.2 BP 128/68 Blood Pressure Location Lt brachial Position Sitting Pulse 78 Pulse Source Pulse Oximeter Intake Visit Reasons: 6 week f/up echo Allergies Penicillins Allergy (Severe, Verified 04/07/25 14:19) Anaphylaxis morphine Adverse Reaction (Intermediate, Verified 04/07/25 14:19) Confusion Medication List - Last Reconciled 04/13/25 by Francis Green MD albuterol sulfate 2.5 mg continuous nebulization albuterol sulfate 90 mcg/actuation inhalation amlodipine-benazepril 5-10 mg 1 cap PO DAILY 90 days aspirin 81 mg PO DAILY atorvastatin 80 mg PO DAILY budesonide 0.5 mg inhalation budesonide-formoterol 160-4.5 mcg/actuation inhalation cetirizine 10 mg PO DAILY PRN clindamycin phosphate 1% 1 appl topical DAILY 30 days clopidogrel 75 mg PO DAILY cyanocobalamin (vitamin B-12) 1,000 mcg IM QMONTH 30 days diclofenac sodium 1% (Arthritis Pain (diclofenac)) 4 grams topical BID 30 days fenofibrate 150 mg PO DAILY gabapentin 400 mg PO 3XD isosorbide mononitrate ER 30 mg PO QAM levetiracetam mg PO levothyroxine 50 mcg PO DAILY 90 days levothyroxine 200 mcg PO DAILY 90 days lidocaine 5% topical metoprolol succinate ER 25 mg PO BID 90 days montelukast 10 mg PO DAILY mycophenolate mofetil orally 250mg capsules 5 pills BID; pantoprazole 20 mg PO BID pentoxifylline ER 400 mg PO TID silver sulfadiazine 1% (Silvadene) 1 appl topical BID 10 days syringe with needle, safety (BD Integra Syringe) As directed tramadol 50 mg PO BID PRN 30 days zolpidem 10 mg PO BEDTIME 30 days HPI Comments Details: Bernadette returns for follow-up. Recently seen in consultation because of history of systemic sclerosis. She has a complicated medical history and used to be seen at [facility]. Then apparently had a consultation at [facility]. She has no clear history of coronary disease but after the last clinic visit, she actually had chest pain which led to [facility] hospitalization. She was thought to have possible vasospasm. Otherwise, no known coronary disease myocardial infarction or cardiomyopathy. Many comorbidities. Primarily crest syndrome/scleroderma. Interstitial lung disease. History of MCA stroke status post right carotid stent. Right MCA aneurysm. Recurrent pulmonary emboli status post IVC filter. [facility] Medical History (Updated 04/13/25 @ 08:58 by Francis Green MD) Nonalcoholic fatty liver Migraine Hyperlipidemia CREST syndrome Chronic kidney disease Hypertension Pulmonary emboli Middle cerebral artery aneurysm Subclavian steal syndrome of right subclavian artery Chronic ischemic right MCA stroke Stroke Lung disease Surgical History (Updated 02/22/25 @ 12:34 by Francis Green MD) S/P IVC filter H/O brain surgery Family History Maternal Grandmother FH: mental illness Brother FH: mental illness Sister FH: mental illness Father FH: mental illness Social History (Updated 03/10/25 @ 11:09 by Razia Dial MA) Housing: Apartment Alcohol intake: never Patient Tobacco Use Status: Never used Tobacco e-Cigarette/Vaping Use: Never Used Second Hand Smoke Exposure: No Substance Use Type: Other service: No Current occupational status: retired Current occupational exposures/hazards: No Cognitive needs: Yes (aphasia ) Hearing needs: No Vision needs: Yes Review of Systems Const Reports fatigue and Denies weakness ENT Denies dizziness Card Denies chest pain, Denies chest pain with activity, Denies syncope, Denies rapid heart rate, Denies pedal edema, Denies edema, Denies leg edema, Denies lightheadedness, Denies palpitations, Denies dyspnea, Denies dyspnea on exertion and Denies orthopnea Resp Denies cough, Denies dyspnea and Denies dyspnea on exertion GI Denies hematochezia and Denies change in stool character Musc Denies abnormal gait, Reports myalgias, Denies muscle cramps, Denies muscle weakness, Denies numbness, Denies radiating pain into limb and Denies tingling Neuro Denies abnormal gait, Denies dizziness, Denies syncope, Denies numbness, Denies tingling and Denies weakness Endo Reports fatigue and Denies palpitations Physical Exam Vital Signs: Last Vital Signs Pulse 78 04/12/25 13:51 BP 128/68 04/12/25 13:51 BMI result Body Mass Index 34.2 Const General: comfortable and no acute distress Orientation/consciousness: patient oriented x3 HEENT Other: Unremarkable Head: Yes normal to inspection Neck Neck: Yes normal visual inspection Chest Chest palpation & inspection: normal inspection of the chest Resp Auscultation: crackles bilateral at the base Cardio Palpation: normal PMI Heart sounds: S1 normal heart sound present, S2 normal heart sound present, no gallops, Murmur heart sound present systolic II/ and no rubs GI Palpation (GI): Soft to palpation Back/Spine/Pelvis Other: unremarkable Skin General skin exam: no rashes or lesions noted Neuro General: patient oriented x3 Extrem General: Yes normal to inspection Psych Mental Status: mental status grossly normal Assessment & Plan Assessment & Plan (1) Precordial chest pain: Code(s): R07.2 - Precordial pain Category: Medical (2) CREST syndrome: Code(s): M34.1 - CR(E)ST syndrome Category: Medical (3) Scleroderma: Code(s): M34.9 - Systemic sclerosis, unspecified Category: Medical Plan Echocardiogram from [facility]-LVEF 60-65%. No wall motion abnormalities. Calcific aortic valve with [id number] stenosis. CT chest reported have mild atherosclerotic plaque. Abdominal aorta with diffuse calcification. Per cardiology consultation, there was lateral ST depression and borderline troponin leak. Overall, concern was possibly vasospasm. Due to limited mobility, she apparently could not do a treadmill test. Inpt pharmacological stress was canceled because of seizure history. Hence managed conservatively with medications only. She seems to be on long- acting nitrates, beta-blockers, amlodipine. No changes with that. We will plan on coronary CTA for further evaluation of any obstructive CAD. Follow-up after the above. Total time spent including review of data, counseling, documentation, coordination of care-34 minutes. Orders: Orders CT Cardiac Coronary Angio 04/12/25 I25.10 - Atherosclerotic heart disease of poarch coronary artery without angina pectoris, R07.9 - Chest pain, unspecified Basic Metabolic Panel 04/12/25 R07.9 - Chest pain, unspecified Coding Level of Care Code Est Pt Level 4 (47619) Complex EM visit Add On G2211 Diagnoses Precordial chest pain R07.2 CREST syndrome M34.1 Scleroderma M34.9
--- OUTSIDE RECORDS SUMMARY | 2025-04-12 16:19 | XMS_ITS | Encounter Summary ---
Author Organization [facility] Address [address] [place] [phone] Care Team Providers Care Operator Maintainer Name Role Phone Sal Jose MD Primary Care Provider [phone] Reason for Visit * Reason Onset Date Comments Holter/Event Monitor 11/13/2023 Trying to E nroll Pt for MCT monitor Encounter Details Date Type Department Care Team (Late st Contact Info) Description 11/13/2023 Telephone [facility] Stroke 800 [place], [place] [address] Kristine Kelly MD PhD 800 [place] [phone] Holter/Event Monitor (Trying to Enroll Pt for [...] 1:45 PM EDT Office Visit Stroke 800 [facility] [place] [address] Kristine Kelly MD PhD [address] [place] [address] 05/04/2025 1:00 PM EDT Follow Up Cardiovascular Medicine at [address] [place] [address] Mike Hilario MD [address] [place] [address] 2 [place] [address] 06/22/2025 2:00 PM EST Office Visit [facility] Epilepsy & Seizures at 800 [facility] 800 [facility] [place] [address] Virgie Mast MD PhD 800 [place] [address] 08/09/2025 1:00 PM EST Office Visit Pulmonary Critical [place] 136 [facility] [address] [place], [place] [address] Ramon Nixon MD 136 [facility] [address] [place] [address] Ksenia Jain, RT documented as of this encounter Visit Diagnoses Not on filedocumented in this encounter Care Teams Operator Maintainer Relationship Specialty Start Date End Date Sal Jose MD 1033 [facility] [address] [place] [phone] PCP - General Family Medicine 10/16/23 documented as of this encounter
--- OUTSIDE RECORDS SUMMARY | 2025-04-12 16:19 | XMS_ITS | Encounter Summary ---
Author Organization [facility] Address Unknown Care Team Providers Care Napping Machine Operator Name Role Phone Sal Jose MD Primary Care Provider [phone] Encounter Details Date Type Department Care Team (Late st Contact Info) Description 08/27/2023 Scanned Document Pulmonary Critical [place] 136 [facility] [address] [place] [address] External, Provider Social History Tobacco Use Types [...] 1:45 PM EDT Office Visit Stroke 800 [place] [address] Kristine Kelly MD PhD 800 [place] [address] 05/04/2025 1:00 PM EDT Follow Up Cardiovascular Medicine at 175 [facility] 175 [place] [address] Mike Hilario MD 175 [facility] 2 [place] [address] 06/22/2025 2:00 PM EST Office Visit [facility] Epilepsy & Seizures at 800 [facility] 800 [facility] [place] [address] Virgie Mast MD PhD 800 [place] [address] 08/09/2025 1:00 PM EST Office Visit Pulmonary Critical [place] 136 [facility] [address] [place] [address] Ramon Nixon MD 136 [facility] [address] [place] [address] Ksenia Jain, RT documented as of this encounter Procedures Procedure Name Priority Date/Time Associated Diagnosis Comments CARDIAC ECHO RESULT SCAN Routine 08/27/2023 documented in this encounter Results * Cardiac Echo Result Scan (08/27/2023) us Provider External CV CARDIAC REPORT (CVR) Final Result documented in this encounter Visit Diagnoses Not on filedocumented in this encounter Care Teams Napping Machine Operator Relationship Specialty Start Date End Date Sal Jose MD [address] [phone] PCP - General Family Medicine 10/16/23 documented as of this encounter
--- OUTSIDE RECORDS SUMMARY | 2025-04-12 16:19 | XMS_ITS | Encounter Summary ---
Author Organization [facility] and [facility] Address [address] [place] [address] Care Team Providers Care Animal Control Licensing Worker Name Role Phone Sal Jose MD Primary Care Provider [phone] Encounter Details Date Type Department Care Team (Late st Contact Info) Description 08/31/[address] [facility] Laboratory Specimens [address] [place], [place] [id number] System, Provider Not In CRST syndrome (HC [...] PM EDT Office Visit [facility] Stroke 800 [place], [place] [phone] Kristine Kelly MD PhD 800 [place] [phone] 05/04/2025 1:00 PM EDT Follow Up Cardiovascular Medicine at 175 [facility] 175 [facility], [place] [address] Mike Hilario MD 175 [facility] Fl 2 [place] [address] 06/22/2025 2:00 PM EST Office Visit [facility] Epilepsy & Seizures at 800 [facility] 800 [facility] [place] [address] Virgie Mast MD PhD 800 [place] [phone] 08/09/2025 1:00 PM EST Office Visit [place] 136 [facility] [address] [place] [address] Ramon Nixon MD 136 [facility] 302 [place] [address] Ksenia Jain, RT Scheduled Orders Name Type Priority Associated Diagnoses [...] documented as of this encounter Care Teams Animal Control Licensing Worker Relationship Specialty Start Date End Date Sal Jose MD [address] [place] [address] PCP - General Family Medicine 10/16/23 documented as of this encounter
--- OUTSIDE RECORDS SUMMARY | 2025-04-12 16:19 | XMS_ITS | Encounter Summary ---
Author Organization [facility] Address Unknown Care Team Providers Care Veneer Manufacturer Name Role Phone Sal Jose MD Primary Care Provider [phone] Reason for Referral * General (Routine) - New Request Specialty Diagnoses / Procedures Referred By Contac t Referred To Contact Pulmonary Disease Procedures Pulmonary Function Test ([facility]) Ramon Nixon MD [address] [place] [address] 302 [place] [address] Phone: tel: fax: Referral ID Status Reason Start Date Expiration Date V isits Requested Visits Authorized [id number] New Request 08/31/2024 08/31/2025 1 1 Encounter Details Date Type Department Care Team (Late st Contact Info) Description 08/31/2024 Scanned Document Pulmonary Critical [place] 136 [facility] 302 [place], [place] [phone] Ramon Nixon MD [address] [place] [address] 302 [place] [address] Social History Tobacco Use Types [...] 1:45 PM EDT Office Visit Stroke 800 [place] [address] Kristine Kelly MD PhD 800 [place] [address] 05/04/2025 1:00 PM EDT Follow Up Cardiovascular Medicine at 175 [facility] 175 [place] [address] Mike Hilario MD 175 [facility] 2 [place] [address] 06/22/2025 2:00 PM EST Office Visit Epilepsy & Seizures at 800 [facility] 800 [place] [address] Virgie Mast MD PhD 800 [place] [address] 08/09/2025 1:00 PM EST Office [place] 136 [facility] [address] [place] [address] Ramon Nixon MD 136 [facility] 302 [place] [phone] Ksenia Jain, RT documented as of this [...] documented as of this encounter Care Teams Veneer Manufacturer Relationship Specialty Start Date End Date Sal Jose MD [address] [address] PCP - General Family Medicine 10/16/23 documented as of this encounter
--- OUTSIDE RECORDS SUMMARY | 2025-04-12 16:19 | XMS_ITS | Encounter Summary ---
Author Organization [facility] Address [address] [address] Phone Care Team Providers Care Document Control Manager Name Role Phone Sal Jose MD Primary Care Provider [phone] Encounter Details Date Type Department Care Team (Late Contact Info) Description 05/25/2024 Scanned Document [facility] - [address] [address] Nain Cat MD [address] [place] [address] Social History Tobacco Use Types Packs/Day [...] PM EDT Office Visit [facility] Stroke 800 [place] [address] Kristine Kelly MD PhD 800 [place] [address] 05/04/2025 1:00 PM EDT Follow Up Cardiovascular Medicine at 175 [facility] 175 [place] [address] Mike Hilario MD 175 [facility] 2 [place] [address] 06/22/2025 2:00 PM EST Office Visit Epilepsy & Seizures at 800 [facility] 800 [facility] [address] Virgie Mast MD PhD 800 [place] [address] 08/09/2025 1:00 PM EST Office Visit [place] 136 [facility] [address] [place] [address] Ramon Nixon MD 136 [facility] 302 [place] [address] Ksenia Jain, RT documented as of this encounter Visit Diagnoses Not on filedocumented in this encounter Additional Health Concerns Assessment Noted Time PHQ-9 Depression Total Score: 0 04/07/20 2:31 PM EDT documented as of this encounter Care Teams Document Control Manager Relationship Specialty Start Date End Date Sal Jose MD [facility] [place] [phone] PCP - General Family Medicine 10/16/23 documented as of this encounter
--- OUTSIDE RECORDS SUMMARY | 2025-04-12 16:19 | XMS_ITS | Encounter Summary ---
Author Organization [facility] and [facility] Address [address] [place] [address] Care Team Providers Care General Operator Name Role Phone Sal Jose MD Primary Care Provider [phone] Encounter Details Date Type Department Care Team (Late Contact Info) Description 12/04/2023 Transcribed Orders [facility] Laboratory Specimens 55 [place] [address] System, Provider Not In CREST variant of [...] 1:45 PM EDT Office Visit Stroke 800 [place] [address] Kristine Kelly MD PhD 800 [place] [address] 05/04/2025 1:00 PM EDT Follow Up Cardiovascular Medicine at 175 [facility] 175 [place] [address] Mike Hilario MD 175 [facility] [address] 2 [place] [address] 06/22/2025 2:00 PM EST Office Visit [facility] Epilepsy [facility] Seizures at 800 [facility] 800 [facility] Lower [place], [place] [address] Virgie Mast MD PhD 800 [facility] [place] [address] 08/09/2025 1:00 PM EST Office Visit [place]monary Critical [place] 136 [facility] [address] [place], [place] [address] Ramon Nixon MD 136 [facility] [address] [place] [address] Ksenia Jain, RT documented as of this encounter Results * Sedimentation rate (ESR) (05/20/2024 12:53 PM EDT) Pathologist [facility] Sedimentation Rate (ESR) 4 0 - 20 mm/hr 05/20/2024 1:59 PM EDT [facility] Blood Venipuncture / Unknown 05/20/2024 12:53 PM EDT 05/20/2024 1:31 PM EDT us Provider Not In System LAB BLOOD ORDERABLES Evelin luis Result [facility] [address] [place] [address] * (ABNORMAL) C-reactive protein (CRP) (04/15/2024 12:20 PM EDT) CRP, High Sensitivity 3.1(H) See comment mg/L 04/15/2024 3:42 PM EDT [facility] Comment: hs-CRP Risk [...] ORDERABLES Evelin l Result Performing Organization Address [facility] Co de Phone Number [facility] [address] [place] [address] * (ABNORMAL) Sedimentation rate (ESR) (04/15/2024 12:20 PM EDT) Sedimentation Rate (ESR) 24(H) 0 - 20 mm/hr 04/15/2024 3:41 PM EDT [facility] Blood Venipuncture / Unknown 04/15/2024 12:20 PM EDT 04/15/2024 2:54 PM EDT us Provider Not In System LAB BLOOD ORDERABLES Evelin l Result Performing Organization Address [facility] Co de Phone Number [facility] [address] [place] [address] * (ABNORMAL) C-reactive protein (CRP) (03/17/2024 10:36 AM EDT) CRP, High Sensitivity 6.3(H) See comment mg/L 03/17/2024 11:47 AM EDT [facility] Comment: hs-CRP Risk [...] ORDERABLES Evelin l Result Performing Organization Address [facility] Co de Phone Number [facility] [address] [place] [address] * (ABNORMAL) Sedimentation rate (ESR) (03/17/2024 10:36 AM EDT) Sedimentation Rate (ESR) 23(H) 0 - 20 mm/hr 03/17/2024 11:46 AM EDT [facility] Blood Venipuncture / Unknown 03/17/2024 10:36 AM EDT 03/17/2024 11:15 AM EDT Provider Not In System LAB BLOOD ORDERABLES Evelin l Result Performing Organization Address [facility] de Phone Number [facility] [address] [place] [address] * (ABNORMAL) C-reactive protein (CRP) (02/20/2024 3:41 PM EDT) CRP, High Sensitivity 8.9(H) See comment mg/L 02/20/2024 4:36 PM EDT [facility] Comment: hs-CRP Risk [...] ORDERABLES Evelin l Result Performing Organization Address [facility]/ZIP Co de Phone Number [facility] [address] [place] [address] * Sedimentation rate (ESR) (02/20/2024 3:41 PM EDT) Sedimentation Rate (ESR) 18 0 - 20 mm/hr 02/20/2024 7:04 PM EDT [facility] Blood Venipuncture / Unknown 02/20/2024 3:41 PM EDT 02/20/2024 4:04 PM EDT Provider Not In System LAB BLOOD ORDERABLES Evelin l Result Performing Organization Address [facility] Co de Phone Number [facility] [address] [place] [address] * (ABNORMAL) C-reactive protein (CRP) (12/09/2023 1:52 PM EDT) CRP, High Sensitivity 4.4(H) See comment mg/L 12/09/2023 4:44 PM EDT [facility] Comment: hs-CRP Risk [...] ORDERABLES Evelin l Result Performing Organization Address [facility] Co de Phone Number [facility] [address] [place] [address] * Sedimentation rate (ESR) (12/09/2023 1:52 PM EDT) Sedimentation Rate (ESR) 10 0 - 20 mm/hr 12/09/2023 5:08 PM EDT [facility] Blood Venipuncture / Unknown 12/09/2023 1:52 PM EDT 12/09/2023 4:20 PM EDT us Provider Not In System LAB BLOOD ORDERABLES Evelin l Result [facility] [address] [place] [address] documented in this encounter Visit Diagnoses Diagnosis CREST variant of scleroderma (HC Code)- Primary Systemic sclerosis documented in this encounter Care Teams General Operator Relationship Specialty Start Date End Date Sal Jose MD [address] [place] [address] PCP - General Family Medicine 10/16/23 documented as of this encounter
--- OUTSIDE RECORDS SUMMARY | 2025-04-12 16:19 | XMS_ITS | Encounter Summary ---
Author Organization [facility] Address [address] [place] [address] Care Team Providers Care Dynamite Packing Machine Feeder Name Role Phone Sal Jose MD Primary Care Provider [phone] Encounter Details Date Type Department Care Team (Late Contact Info) Description 10/28/2023 Scanned Document Neurosurgery at [address] [facility] 800 [place] [address] Joao Loredo MD [address] [place] [address] Social History Tobacco Use Types Packs/Day [...] 1:45 PM EDT Office Visit Stroke 800 [place], [place] [address] Kristine Kelly MD PhD 800 [place] [address] 05/04/2025 1:00 PM EDT Follow Up Cardiovascular Medicine at [address] [place] [address] Mike Hilario MD 175 [facility] [address] 2 [place] [address] 06/22/2025 2:00 PM EST Office Visit [facility] Epilepsy & Seizures at [address] [facility] [address] [facility] [place] [address] Virgie Mast MD PhD 800 [place] [address] 08/09/2025 1:00 PM EST Office Visit [place]monary Critical [place] 136 [facility] [address] [place] [address] Ramon Nixon MD 136 [facility] [address] [place] [address] Ksenia Jain, RT documented as of this [...] IR Result Scan (02/07/2022 11:18 AM EDT) Historical Provider IMG SCAN REPORTS Final Resul t * CT Result Scan (02/06/2022 11:32 AM EDT) Historical Provider IMG SCAN REPORTS Final Resul t * CT Result Scan (02/06/2022 11:26 AM EDT) [facility] Provider IMG SCAN REPORTS Final Resul t documented in this encounter Visit Diagnoses Not on filedocumented in this encounter Care Teams Dynamite Packing Machine Feeder Relationship Specialty Start Date End Date Sal Jose MD [address] [address] PCP - General Family Medicine 10/16/23 documented as of this encounter
--- OUTSIDE RECORDS SUMMARY | 2025-04-12 16:19 | XMS_ITS | Encounter Summary ---
Author Organization [facility] and [facility] Address [address] [place] [address] Care Team Providers Care Acid Bleacher Name Role Phone Sal Jose MD Primary Care Provider [phone] Encounter Details Date Type Department Care Team (Late st Contact Info) Description 10/17/2023 Scanned Document Stroke 800 [place] [address] Kristine Kelly MD PhD 800 [place] [phone] Social History Tobacco Use Types Packs/Day Years [...] 1:45 PM EDT Office Visit Stroke 800 [place] [address] Kristine Kelly MD PhD 800 [place] [address] 05/04/2025 1:00 PM EDT Follow Up Cardiovascular Medicine at [address] [address], [place] [address] Mike Hilario MD 175 [facility] 2 [place] [address] 06/22/2025 2:00 PM EST Office Visit [facility] Epilepsy & Seizures at 800 [facility] 800 [facility] [place] [address] Virgie Mast MD PhD [address] [place] [address] 08/09/2025 1:00 PM EST Office Visit [place] 136 [facility] [address] [place], [place] [address] Ramon Nixon MD 136 [facility] 302 [place] [phone] Ksenia Jain, RT documented as of this encounter Visit Diagnoses Not on filedocumented in this encounter Care Teams Acid Bleacher Relationship Specialty Start Date End Date Sal Jose MD [facility] [address] [address] PCP - General Family Medicine 10/16/23 documented as of this encounter
--- OUTSIDE RECORDS SUMMARY | 2025-04-12 16:19 | XMS_ITS | Encounter Summary ---
Author Organization [facility] and [facility] Address [address] [place] [address] Care Team Providers Care Conference Planning Manager Name Role Phone Sal Jose MD Primary Care Provider Encounter Details Date Type Department Care Team (Late st Contact Info) Description 08/13/2023 Scanned Document EXTERNAL REFERRAL SOURCE [address] [place] [address] External, Provider Social History Tobacco Use Types [...] 1:45 PM EDT Office Visit Stroke 800 [place] [address] Kristine Kelly MD PhD 800 [place] [address] 05/04/2025 1:00 PM EDT Follow Up Cardiovascular Medicine at 175 [facility] 175 [place], [place] [address] Mike Hilario MD [address] [place] [address] 2 [place] [address] 06/22/2025 2:00 PM EST Office Visit [facility] Epilepsy & Seizures at 800 [facility] 800 [facility] [place] [address] Virgie Mast MD PhD 800 [place] [address] 08/09/2025 1:00 PM EST Office Visit [place]monary Critical [place] 136 [facility] [address] [place], [place] [address] Ramon Nixon MD 136 [facility] [address] [place] [address] Ksenia Jain, RT documented as of this encounter Visit Diagnoses Not on filedocumented in this encounter Care Teams Conference Planning Manager Relationship Specialty Start Date End Date Sal Jose MD 1033 [facility] [address] [place] [phone] PCP - General Family Medicine 10/16/23 documented as of this encounter
--- OUTSIDE RECORDS SUMMARY | 2025-04-12 16:19 | XMS_ITS | Encounter Summary ---
Author Organization [facility] and [facility] Address [address] [place] [address] Care Team Providers Care Mutuel Cashier Name Role Phone Sal Jose MD Primary Care Provider [phone] Encounter Details Date Type Department Care Team (Late st Contact Info) Description 08/14/2023 Transcribed Orders EXTERNAL REFERRAL SOURCE 20 [place] [address] Referral, Self Social History Tobacco Use Types [...] 1:45 PM EDT Office Visit Stroke 800 [place] [address] Kristine Kelly MD PhD 800 [place] [address] 05/04/2025 1:00 PM EDT Follow Up Cardiovascular Medicine at 175 [facility] 175 [place], [place] [address] Mike Hilario MD [address] [place] [address] 2 [place] [address] 06/22/2025 2:00 PM EST Office Visit [facility] Epilepsy & Seizures at 800 [facility] 800 [facility] [place] [address] Virgie Mast MD PhD 800 [place] [address] 08/09/2025 1:00 PM EST Office Visit [place] 136 [facility] [address] [place], [place] [address] Ramon Nixon MD 136 [facility] [address] [place] [address] Ksenia Jain, RT documented as of this encounter Visit Diagnoses Not on filedocumented in this encounter Care Teams Mutuel Cashier Relationship Specialty Start Date End Date Sal Jose MD 1033 [facility] [address] [place] [phone] PCP - General Family Medicine 10/16/23 documented as of this encounter
--- OUTSIDE RECORDS SUMMARY | 2025-04-12 16:19 | XMS_ITS | Encounter Summary ---
Author Organization [facility] Address Unknown Care Team Providers Care Lpn Instructor Name Role Phone Sal Jose MD Primary Care Provider [phone] Encounter Details Date Type Department Care Team (Late st Contact Info) Description 05/11/2024 Scanned Document [place] 136 [facility] [address] [place], [place] [address] Ramon Nixon MD 136 [facility] 302 [place] [address] Social History Tobacco Use Types [...] PM EDT Office Visit Y[facility] Stroke 800 [place], [place] [address] Kristine Kelly MD PhD 800 [place] [address] 05/04/2025 1:00 PM EDT Follow Up Cardiovascular Medicine at 175 [facility] 175 [place] [address] Mike Hilario MD 175 [facility] [address] 2 [place] [address] 06/22/2025 2:00 PM EST Office Visit Epilepsy & Seizures at 800 [facility] 800 [facility] [place] [address] Virgie Mast MD PhD 800 [place] [address] 08/09/2025 1:00 PM EST Office Visit [place]monary Critical [place] 136 [facility] [address] [place] [address] Ramon Nixon MD 136 [facility] 302 [place] [address] Ksenia Jain, RT documented as of this encounter Visit Diagnoses Not on filedocumented in this encounter Additional Health Concerns Assessment Noted Time PHQ-9 Depression Total Score: 0 04/07/20 2:31 PM EDT documented as of this encounter Care Teams Lpn Instructor Relationship Specialty Start Date End Date Sal Jose MD [facility] [address] [address] PCP - General Family Medicine 10/16/23 documented as of this encounter
--- OUTSIDE RECORDS SUMMARY | 2025-04-12 16:19 | XMS_ITS | Encounter Summary ---
Author Organization [facility] Address [address] [place] [address] Care Team Providers Care Student Finance Advisor Name Role Phone Sal Jose MD Primary Care Provider [phone] Encounter Details Date Type Department Care Team (Late st Contact Info) Description 10/28/2023 Scanned Document C[facility]ENTER SCHEDULING 25 [place], [place] [address] Provider, Historical . [phone] (Fax) Social History Tobacco Use Types Packs/Day [...] 1:45 PM EDT Office Visit Stroke 800 [facility] [place] [address] Kristine Kelly MD PhD 800 [place] [address] 05/04/2025 1:00 PM EDT Follow Up Cardiovascular Medicine at 175 [facility] 175 [place] [address] Mike Hilario MD [address] [place] [address] 2 [place] [address] 06/22/2025 2:00 PM EST Office Visit [facility] Epilepsy & Seizures at [address] [facility] [address] [facility] [place] [address] Virgie Mast MD PhD 800 [facility] [address] 08/09/2025 1:00 PM EST Office Visit [place]monary Critical [place] 136 [facility] [address] [place] [address] Ramon Nixon MD 136 [facility] [address] [place] [phone] Ksenia Jain, documented as of this encounter Procedures Procedure [...] on filedocumented in this encounter Care Teams Student Finance Advisor Relationship Specialty Start Date End Date Sal Jsoe MD 1033 [facility] [address] [place] [phone] PCP - General Family Medicine 10/16/23 documented as of this encounter
--- OUTSIDE RECORDS SUMMARY | 2025-04-12 16:19 | XMS_ITS | Patient Health Record ---
Author Organization [facility] Address [address] [place] [phone] Care Team Providers Care Government Auditor Name Role Phone Jayant Walker Primary Care Provider Venkatesh Mauro Unavailable [phone] Allergies Allergen (clinical drug ingredient) Drug/Non Drug [...] Status Risk Notes Problem Colon cancer screening (464394056) Colon cancer screening (Z12.11) Active confirmed Problem Irregular bowel habits (056244354) Irregular bowel habits (R19.8) Active confirmed Problem Long-term current use of anticoagulant (973508646) Anticoagulant long-term use (Z79.01) Active confirmed Problem 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) Active confirmed Problem Gastroesophageal reflux disease (006842150) GERD without esophagitis (K21.9) Active confirmed Problem History of polyp of colon (situation) (303075124) History of colon polyps (Z86.0100) Active confirmed [...] N/A Encounters Encounter Location Date Provider Diagnosis [facility] [address] [place] [phone] 02/08/2025 Venkatesh Marsh History of colon gely yps Z86.0100 ; GERD without esophagitis K21.9 ; Colon cancer screening Z12.11 ; Anticoagulant long-term use Z79.01 ; Irregular bowel habits R19.8 and Scleroderma of esophagus M34.1 [facility] [address] [place] [phone] 02/08/2025 Venkatesh Marsh Assessments Encounter Date Diagnosis (ICD Code) Assessment Notes Treatment Notes Treatment Clinical Notes Section Notes 02/08/2025 GERD without esophagitis (ICD-10 - K21.9) Overall, oRman appears to be doing well and appears [...] to speak with her stroke doctor at [facility] who prescribes her clopidogrel so as to be sure that is not contraindicated from their standpoint. I did recommend a follow-up upper endoscopy given the description of her previous endoscopies and recommendations from her horse breaker in [place], [place]. She is not having any [...] but was advised to speak with her [facility] physicians about those recommendations to be sure there is no contraindication to them. I advised her that she might need Lovenox for bridging while off the clopidogrel and pentoxifylline. However, I advised her that would be up to the physicians at [facility]. These procedures will be scheduled for her at some point in the Fall. I do not think they need to be done sooner from a clinical standpoint based on no worrisome symptoms at the present time. I wanted to leave enough time for us to get information and ultimate clearance from all of her physicians at [facility]. She clearly has comorbidities including pulmonary issues, coronary artery disease, and cerebrovascular disease. I advised her to try to get clearance letters and summaries of her medical issues from the [facility] physician such that we can share them with the medical staff and anesthesiologist at [facility] prior to her procedures. If it turns out that her [facility] physicians do not think she is stable [...] to speak with her stroke doctor at [facility] who prescribes her clopidogrel so as to be sure that is not contraindicated from their standpoint. I did recommend a follow-up upper endoscopy given the description of her previous endoscopies and recommendations from her horse breaker in [place], [place]. She is not having any [...] but was advised to speak with her [facility] physicians about those recommendations to be sure there is no contraindication to them. I advised her that she might need Lovenox for bridging while off the clopidogrel and pentoxifylline. However, I advised her that would be up to the physicians at [facility]. These procedures will be scheduled for her at some point in the Fall. I do not think they need to be done sooner from a clinical standpoint based on no worrisome symptoms at the present time. I wanted to leave enough time for us to get information and ultimate clearance from all of her physicians at [facility]. She clearly has comorbidities including pulmonary issues, coronary artery disease, and cerebrovascular disease. I advised her to try to get clearance letters and summaries of her medical issues from the [facility] physician such that we can share them with the medical staff and anesthesiologist at [facility] prior to her procedures. If it [...] (ICD-10 - Z12.11) Need names of your [facility] doctors and we will need letters with [...] to speak with her stroke doctor at [facility] who prescribes her clopidogrel so as to be sure that is not contraindicated from their standpoint. I did recommend a follow-up upper endoscopy given the description of her previous endoscopies and recommendations from her horse breaker in [place], [place]. She is not having any [...] but was advised to speak with her [facility] physicians about those recommendations to be sure there is no contraindication to them. I advised her that she might need Lovenox for bridging while off the clopidogrel and pentoxifylline. However, I advised her that would be up to the physicians at [facility]. These procedures will be scheduled for her at some point in the Fall. I do not think they need to be done sooner from a clinical standpoint based on no worrisome symptoms at the present time. I wanted to leave enough time for us to get information and ultimate clearance from all of her physicians at [facility]. She clearly has comorbidities including pulmonary issues, coronary artery disease, and cerebrovascular disease. I advised her to try to get clearance letters and summaries of her medical issues from the [facility] physician such that we can share them with the medical staff and anesthesiologist at [facility] prior to her procedures. If it turns out that her [facility] physicians do not think she is stable [...] to speak with her stroke doctor at [facility] who prescribes her clopidogrel so as to be sure that is not contraindicated from their standpoint. I did recommend a follow-up upper endoscopy given the description of her previous endoscopies and recommendations from her horse breaker in [place], [place]. She is not having any [...] but was advised to speak with her [facility] physicians about those recommendations to be sure there is no contraindication to them. I advised her that she might need Lovenox for bridging while off the clopidogrel and pentoxifylline. However, I advised her that would be up to the physicians at [facility]. These procedures will be scheduled for her at some point in the Fall. I do not think they need to be done sooner from a clinical standpoint based on no worrisome symptoms at the present time. I wanted to leave enough time for us to get information and ultimate clearance from all of her physicians at [facility]. She clearly has comorbidities including pulmonary issues, coronary artery disease, and cerebrovascular disease. I advised her to try to get clearance letters and summaries of her medical issues from the [facility] physician such that we can share them with the medical staff and anesthesiologist at [facility] prior to her procedures. If it turns out that her [facility] physicians do not think she is stable [...] to speak with her stroke doctor at [facility] who prescribes her clopidogrel so as to be sure that is not contraindicated from their standpoint. I did recommend a follow-up upper endoscopy given the description of her previous endoscopies and recommendations from her horse breaker in [place], [place]. She is not having any [...] but was advised to speak with her [facility] physicians about those recommendations to be sure there is no contraindication to them. I advised her that she might need Lovenox for bridging while off the clopidogrel and pentoxifylline. However, I advised her that would be up to the physicians at [facility]. These procedures will be scheduled for her at some point in the Fall. I do not think they need to be done sooner from a clinical standpoint based on no worrisome symptoms at the present time. I wanted to leave enough time for us to get information and ultimate clearance from all of her physicians at [facility]. She clearly has comorbidities including pulmonary issues, coronary artery disease, and cerebrovascular disease. I advised her to try to get clearance letters and summaries of her medical issues from the [facility] physician such that we can share them with the medical staff and anesthesiologist at [facility] prior to her procedures. If it turns out that her [facility] physicians do not think she is stable [...] to speak with her stroke doctor at [facility] who prescribes her clopidogrel so as to be sure that is not contraindicated from their standpoint. I did recommend a follow-up upper endoscopy given the description of her previous endoscopies and recommendations from her horse breaker in [place], [place]. She is not having any [...] but was advised to speak with her [facility] physicians about those recommendations to be sure there is no contraindication to them. I advised her that she might need Lovenox for bridging while off the clopidogrel and pentoxifylline. However, I advised her that would be up to the physicians at [facility]. These procedures will be scheduled for her at some point in the Fall. I do not think they need to be done sooner from a clinical standpoint based on no worrisome symptoms at the present time. I wanted to leave enough time for us to get information and ultimate clearance from all of her physicians at [facility]. She clearly has comorbidities including pulmonary issues, coronary artery disease, and cerebrovascular disease. I advised her to try to get clearance letters and summaries of her medical issues from the [facility] physician such that we can share them with the medical staff and anesthesiologist at [facility] prior to her procedures. If it turns out that her [facility] physicians do not think she is stable [...] Name:Venkatesh Marsh , 06/01/2025 08:30:00 AM, [address] [facility] , [place], [place], [id number], Insurance Providers Payer Name Payer Address Payer Phone Subscriber Number Group Number Insured Name Patient Relationship to Insured Coverage Start Date Coverage End Date MEDICARE OF ID [address] [place] [address] [id number] JERRICA Mcdonough ROMAN Self - patient is the insured 5 MEDICAID OF [facility] [address] [place] [address] [id number] JERRICA Mcdonough ROMAN Self - patient is the insured Medical (General) History Medical History History ICD Code 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
--- OUTSIDE RECORDS SUMMARY | 2025-04-12 16:19 | XMS_ITS | Encounter Summary ---
Author Organization [facility] Address [address] [place] [phone] Care Team Providers Care Osteopathy Doctor Name Role Phone Sal Jose MD Primary Care Provider [phone] Encounter Details Date Type Department Care Team (Late Contact Info) Description 10/28/2023 Scanned Document Neurosurgery at 800 [facility] 800 [place] [address] Joao Loredo MD [address] [place] [phone] Social History Tobacco Use Types Packs/Day [...] PM EDT Office Visit Stroke 800 [place], [place] [address] Kristine Kelly MD PhD 800 [place] [phone] 05/04/2025 1:00 PM EDT Follow Up Cardiovascular Medicine at [address] [place] [address] Mike Hilario MD 175 [facility] 2 [place] [phone] 06/22/2025 2:00 PM EST Office Visit [facility] Epilepsy & Seizures at 800 [facility] 800 [facility] [place] [address] Virgie Mast MD PhD 800 [place] [phone] 08/09/2025 1:00 PM EST Office Visit Pulmonary Critical [place] 136 [facility] [address] [place] [address] Ramon Nixon MD 136 [facility] 302 [place] [phone] Ksenia Jain, RT documented as of this encounter Visit Diagnoses Not on filedocumented in this encounter Care Teams Osteopathy Doctor Relationship Specialty Start Date End Date Sal Jose MD [address] [phone] PCP - General Family Medicine 10/16/23 documented as of this encounter
--- OUTSIDE RECORDS SUMMARY | 2025-04-12 16:19 | XMS_ITS | Encounter Summary ---
Author Organization [facility] and [facility] Address [address] [place] [phone] Care Team Providers Care Financial Compliance Examiner Name Role Phone Sal Jose MD Primary Care Provider [phone] Encounter Details Date Type Department Care Team (Late st Contact Info) Description 10/27/2023 Scanned Document [facility] SCHEDULING 25 [place], [place] [address] Provider, Historical . [phone] (Fax) Social History Tobacco Use Types Packs/Day [...] 1:45 PM EDT Office Visit Stroke 800 [facility] [place] [address] Kristine Kelly MD PhD 800 [place] [phone] 05/04/2025 1:00 PM EDT Follow Up Cardiovascular Medicine at 175 [facility] 175 [place] [address] Mike Hilario MD [address] [place] [address] 2 [place] [address] 06/22/2025 2:00 PM EST Office Visit [facility] Epilepsy & Seizures at [address] [facility] [address] [facility] [address] Virgie Mast MD PhD 800 [place] [phone] 08/09/2025 1:00 PM EST Office Visit Pulmonary Critical [place] 136 [facility] [address] [place], [place] [address] Ramon Nixon MD 136 [facility] [address] [place] [phone] Ksenia Jain, RT documented as of this encounter Visit Diagnoses Not on filedocumented in this encounter Care Teams Financial Compliance Examiner Relationship Specialty Start Date End Date Sal Jose MD 1033 [facility] [address] [place] [phone] PCP - General Family Medicine 10/16/23 documented as of this encounter
--- OUTSIDE RECORDS SUMMARY | 2025-04-12 16:19 | XMS_ITS | Encounter Summary ---
Author Organization [facility] and [facility] Address [address] [place] [phone] Care Team Providers Care A&P Technician Name Role Phone Sal Jose MD Primary Care Provider [phone] Encounter Details Date Type Department Care Team (Late st Contact Info) Description 07/21/2024 Transcribed Orders [facility] 55 [place], [place] [address] System, Provider Not In CRST syndrome (HC [...] PM EDT Office Visit [facility] Stroke 800 [place], [place] [phone] Kristine Kelly MD PhD 800 [place] [phone] 05/04/2025 1:00 PM EDT Follow Up Cardiovascular Medicine at [address] 175 [place], [place] [address] Mike Hilario MD 175 [facility] [address] 2 [place] [phone] 06/22/2025 2:00 PM EST Office Visit Epilepsy & Seizures at 800 [facility] 800 [facility] Lower [place], [place] [address] Virgie Mast MD PhD 800 [place] [phone] 08/09/2025 1:00 PM EST Office Visit Pulmonary Critical [place] 136 [facility] [address] [place], [place] [address] Ramon Nixon MD 136 [facility] 302 [place] [phone] Ksenia Jain, RT documented as of this encounter Results * Sedimentation rate (ESR) (07/23/2024 1:13 PM EST) Sedimentation Rate (ESR) 12 0 - 20 mm/hr 07/23/2024 2:55 PM EST [facility] DEPARTMENT OF LABORATORY MEDICINE Blood Venipuncture / Unknown 07/23/2024 1:13 PM EST 07/23/2024 2:24 PM EST us Provider Not In System LAB BLOOD ORDERABLES Evelin smith Result [facility] DEPARTMENT OF LABORATORY MEDICINE [address] [place] [address] documented in this encounter Visit Diagnoses Diagnosis 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
--- OUTSIDE RECORDS SUMMARY | 2025-04-12 16:19 | XMS_ITS | Encounter Summary ---
Author Organization [facility] and [facility] Address [address] [place] [phone] Care Team Providers Care Antique Clock Repairer Name Role Phone Sal Jose MD Primary Care Provider Encounter Details Date Type Department Care Team (Late Contact Info) Description 10/28/2023 Scanned Document Neurosurgery at 800 [facility] 800 [place] [address] Joao Loredo MD [address] [place] [phone] Social History Tobacco Use Types Packs/Day [...] PM EDT Office Visit Stroke 800 [place], [place] [address] Kristine Kelly MD PhD 800 [place] [phone] 05/04/2025 1:00 PM EDT Follow Up Cardiovascular Medicine at [address] [place] [address] Mike Hilario MD 175 [facility] [address] 2 [place] [phone] 06/22/2025 2:00 PM EST Office Visit [facility] Epilepsy & Seizures at 800 [facility] 800 [facility] [place] [address] Virgie Mast MD PhD 800 [facility] [place] [phone] 08/09/2025 1:00 PM EST Office Visit Pulmonary Critical [place] 136 [facility] [address] [place] [address] Ramon Nixon MD 136 [facility] [address] [place] [phone] Ksenia Jain, RT documented as of this [...] CT Result Scan (05/17/2021 11:42 AM EDT) [facility] Provider IMG SCAN REPORTS Final Resul t * MRI Result Scan (05/12/2020 11:48 AM EDT) [facility] Provider IMG SCAN REPORTS Final Resul t * MRI Result Scan (04/12/2020 12:01 PM EDT) Historical Provider IMG SCAN REPORTS Final Resul t * MRI Result Scan (04/12/2020 11:55 AM EDT) Result [facility] Provider IMG SCAN REPORTS Final Resul t * MRI Result Scan (04/08/2020 12:04 PM EDT) Result [facility] Provider IMG SCAN REPORTS Final Resul t * CT Result Scan (02/25/2020 12:11 PM EDT) Historical Provider IMG SCAN REPORTS Final Resul t * MRI Result Scan (02/01/2020 12:16 PM EDT) [facility] Provider IMG SCAN REPORTS Final Resul t * CT Result Scan (12/25/2018 12:21 PM EDT) Result [facility] Provider IMG SCAN REPORTS Final Resul t * CT Result Scan (08/25/2015 12:26 PM EST) [facility] Provider IMG SCAN REPORTS Final Resul t * CT Result Scan (09/28/2012 12:30 PM EST) Historical Provider IMG SCAN REPORTS Final Resul t * CT Result Scan (09/07/2012 12:34 PM EST) [facility] Provider IMG SCAN REPORTS Final Resul t * CT Result Scan (02/13/2012 12:38 PM EDT) [facility] Provider IMG SCAN REPORTS Final Resul t * CT Result Scan (12/17/2010 1:03 PM EDT) [facility] Provider IMG SCAN REPORTS Final Resul t * CT Result Scan (12/17/2010 1:00 PM EDT) [facility] Provider IMG SCAN REPORTS Final Resul t * CT Result Scan (12/17/2010 12:56 PM EDT) [facility] Provider IMG SCAN REPORTS Final Resul t * CT Result Scan (12/17/2010 12:52 PM EDT) [facility] Provider IMG SCAN REPORTS Final Resul t * CT Result Scan (12/17/2010 12:46 PM EDT) Result [facility] Provider IMG SCAN REPORTS Final Resul t * CT Result Scan (12/17/2010 12:41 PM EDT) Historical Provider IMG SCAN REPORTS Final Resul t documented in this encounter Visit Diagnoses Not on filedocumented in this encounter Care Teams Antique Clock Repairer Relationship Specialty Start Date End Date Sal Jose MD 1033 [facility] [address] [place] [phone] PCP - General Family Medicine 10/16/23 documented as of this encounter
--- OUTSIDE RECORDS SUMMARY | 2025-04-12 16:21 | XMS_ITS | Clinical Summary ---
Author Organization [facility] Address [address] [place] [address] Phone Care Team Providers Care Cost Accountant Name Role Phone Sal Jose MD Primary Care Provider [phone] Allergies Active Allergy Reactions Criticality Noted Date [...] 12:00 PM EDT Follow Up Pulmonary Critical [place] [address] [place] [address] Ramon Nixon MD Mild persistent asthma with [...] PM EDT Office Visit [facility] Stroke 800 [place] [address] Kristine Kelly MD PhD 800 [place] [phone] 05/04/2025 1:00 PM EDT Follow Up Cardiovascular Medicine at [address] 175 [place] [address] Mike Hilario MD 175 [facility] Fl 2 [place] [phone] 06/22/2025 2:00 PM EST Office Visit Epilepsy & Seizures at 800 [facility] 800 [facility] [place], [place] [address] Virgie Mast MD PhD 800 [place] [phone] 08/09/2025 1:00 PM EST Office Visit Pulmonary Critical [place] 136 [facility] [address] [place], [place] [address] Ramon Nixon MD 136 [facility] 302 [place] [phone] Ksenia Jain, RT Health Maintenance Due Date Last Done Comments [...] 03/02/2019, Additional history exists Covid-19 vaccine series ( season) 2025 12/06/2021, 11/03/2020, 10/13/2020 Influenza vaccine [...] - 144 mmol/L 07/23/2024 3:09 PM EST [facility] Potassium 4.2 3.3 - 5.3 mmol/L 07/23/2024 3:09 PM EST [facility] Chloride 105 98 - 107 mmol/L 07/23/2024 3:09 PM EST [facility] CO2 26 20 - 30 mmol/L 07/23/2024 3:09 PM EST [facility] Anion Gap 13 7 - 17 07/23/2024 3:09 PM EST [facility] Glucose 89 70 - 100 mg/dL 07/23/2024 3:09 PM [facility] MEDIC[facility] BUN 13 8 - 23 mg/dL 07/23/2024 3:09 PM [facility] Creatinine 0.72 0.40 - 1.30 mg/dL 07/23/2024 3:09 PM [facility] Calcium 9.7 8.8 - 10.2 mg/dL 07/23/2024 3:09 PM [facility] BUN/Creatinine Ratio 18.1 8.0 - 23.0 07/23/2024 3:09 PM [facility]IC[facility] Total Protein 6.7 5.9 - 8.3 g/dL 024 3:09 PM [facility] Comment:As of 2023, th e reference interval for Total Protein has been changed from (6.6 to 8.7 g/dL) to (5.9 to 8.3 g/dL). Albumin 4.3 3.6 - 5.1 g/dL 07/23/2024 3:09 PM [facility] MEDIC[facility] Comment:As of 2023, e reference interval for Albumin has been changed from (3.6 to 4.9 g/dL) to (3.6 to 5.1 g/dL). Total Bilirubin 0.6 <=1.2 mg/dL 07/23/20 3:09 PM [facility]IC[facility] Alkaline Phosphatase 113 9 - 122 U/L 07/23/2024 3:09 PM [facility] Alanine Aminotransferase (ALT) 27 10 - 35 U/L 07/23/2024 3:09 PM [facility] Comment:Calcium dobesilate c an cause artificially low ALT results at therapeutic concentrations Aspartate Aminotransferase (AST) 23 10 - 35 U/L 07/23/2024 3:09 PM [facility]IC[facility] Globulin 2.4 2.0 - 3.9 g/dL 07/23/2024 3:09 PM [facility] Comment:As of 2023, e reference interval for Globulin has been changed from (2.3 to 3.5 g/dL) to (2.0 to 3.9 g/dL). A/G Ratio 1.8 1.0 - 2.2 07/23/2024 3:09 PM [facility] LAB[facility]ATORY MEDICINE AST/ALT Ratio 0.9 Reference Range Not Established 07/23/2024 3:09 PM [facility] MEDICINE eGFR (Creatinine) >60 >=60 mL/min/1.73m2 07/23/2024 3:09 PM EST [facility] Comment: [facility] utilizes CKD-EPI Creatinine 2020 to report eGFR. Values < 60 mL/min/1.73 m2 may indicate CKD if present for more than three months AND creatinine is at steady state. The eGFR provides a rough estimate of kidney function. For further guidance, please refer to the CKD: Adult Aerophysicist Signature pathway. Creatinine Delta 0.01 See Comment 3:09 PM [facility]PART[facility] OF LAB[facility]ATORY MEDICINE Comment: [...] System LAB BLOOD ORDERABLES Evelin l Result [facility]ICINE [address] [place] [address] from Last 3 Months or Most Recently Relevant to Health Maintenance [place] [address] [facility]GD [id number] MEDICA[place] [id number] [facility] MGD [id number] MEDICAID [address]-[place] [id number] [facility] 1[place] [address] [facility] MGD [id number] MEDICA[place] 1[place] [id number] [facility] Care Teams Cost Accountant Relationship Specialty Start Date End Date Sal Jose MD [address] [phone] PCP - General Family Medicine 10/16/23
--- OUTSIDE RECORDS SUMMARY | 2025-04-12 16:21 | XMS_ITS | Encounter Summary ---
Author Organization [facility] Address Unknown Care Team Providers Care Dog Food Dough Mixer Name Role Phone Sal Jose MD Primary Care Provider [phone] Encounter Details Date Type Department Care Team (Late st Contact Info) Description 11/19/2022 Scanned Document Pulmonary Critical [place] 136 [facility] [address] [place] [address] External, Provider Social History Tobacco Use Types [...] 1:45 PM EDT Office Visit Stroke 800 [place] [address] Kristine Kelly MD PhD 800 [place] [phone] 05/04/2025 1:00 PM EDT Follow Up Cardiovascular Medicine at 175 [facility] 175 [place] [address] Mike Hilario MD 175 [facility] 2 [place] [phone] 06/22/2025 2:00 PM EST Office Visit [facility] Ep[facility]psy [facility] Seiz[facility] at 800 [facility]Note 2[facility] 800 [facility]Note 2] [place] [address] Virgie Mast MD PhD 800 [place] [phone] 08/09/2025 1:00 PM EST Office Visit [place]monary Critical [place] 136 [facility] 302 [place], [place] [address] Ramon Nixon MD 136 [facility] 302 [place] [phone] Ksenia Jain, RT documented as of this encounter Visit Diagnoses Not on filedocumented in this encounter Care Teams Dog Food Dough Mixer Relationship Specialty Start Date End Date Sal Jose MD [address] [place] [phone] PCP - General Family Medicine 10/16/23 documented as of this encounter
--- OUTSIDE RECORDS SUMMARY | 2025-04-12 16:21 | XMS_ITS | Clinical Summary ---
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 Gustavus GARCIA [address] [address] FULL [place]IC[place] [address] [address] DENTAL - HSN FULL (MEDICAID) Care Teams Nail Welter Relationship Specialty Start Date End Date Cordell Saba [facility] 08/12/24 [facility] NPI ID: [id number] Address: [address] [place] [id number] Primary Care Physician [id number] Primary Care Provider 08/12/18
--- OUTSIDE RECORDS SUMMARY | 2025-04-12 16:21 | XMS_ITS | Encounter Summary ---
Author Organization [facility] Address Unknown Care Team Providers Care Technical Sales Engineer Name Role Phone Sal Jose MD Primary Care Provider [phone] Encounter Details Date Type Department Care Team (Late st Contact Info) Description 11/27/2021 Scanned Document Pulmonary Critical [place] 136 [facility] [address] [place] [address] Gaviota Rivera, OT Social History Tobacco Use [...] 1:45 PM EDT Office Visit Stroke 800 [facility] [place] [place] [address] Kristine Kelly MD PhD 800 [place] [phone] 05/04/2025 1:00 PM EDT Follow Up Cardiovascular Medicine at 175 [facility] 175 [place] [address] Mike Hilario MD 175 [facility] 2 [place] [phone] 06/22/2025 2:00 PM EST Office Visit [facility] Ep[facility] Seizures at 800 [facility] 800 [facility] [place] [address] Virgie Mast MD PhD [address] [place] [phone] 08/09/2025 1:00 PM EST Office Visit [place]monary Critical [place] 136 [facility] [address] [place], [place] [address] Ramon Nixon MD 136 [facility] [place] [phone] Ksenia Jain, RT documented as of this encounter Visit Diagnoses Not on filedocumented in this encounter Care Teams Technical Sales Engineer Relationship Specialty Start Date End Date Sal Jose MD 1033 [facility] [address] [place] [phone] PCP - General Family Medicine 10/16/23 documented as of this encounter
--- OUTSIDE RECORDS SUMMARY | 2025-04-12 16:21 | XMS_ITS | Encounter Summary ---
Author Organization [facility] Address Unknown Care Team Providers Care Rim Fire Charger Operator Name Role Phone Sal Jose MD Primary Care Provider [phone] Encounter Details Date Type Department Care Team (Late st Contact Info) Description 11/19/2022 Scanned Document Pulmonary Critical [place] 136 [facility] [address] [place] [address] External, Provider Social History Tobacco Use Types [...] 1:45 PM EDT Office Visit Stroke 800 [place] [address] Kristine Kelly MD PhD 800 [place] [phone] 05/04/2025 1:00 PM EDT Follow Up Cardiovascular Medicine at 175 [facility] 175 [place] [address] Mike Hilario MD 175 [facility] 2 [place] [phone] 06/22/2025 2:00 PM EST Office Visit [facility] Ep[facility] Seizures at [address] [facility] [address] [facility] [place] [address] Virgie Mast MD PhD 800 [place] [phone] 08/09/2025 1:00 PM EST Office Visit [place]monary Critical [place] 136 [facility] 302 [place], [place] [address] Ramon Nixon MD 136 [facility] [place] [address] Ksenia Jain, RT documented as of this encounter Visit Diagnoses Not on filedocumented in this encounter Care Teams Rim Fire Charger Operator Relationship Specialty Start Date End Date Sal Jose MD [address] [place] [phone] PCP - General Family Medicine 10/16/23 documented as of this encounter
--- OUTSIDE RECORDS SUMMARY | 2025-04-12 16:21 | XMS_ITS | Encounter Summary ---
Author Organization [facility] Address Unknown Care Team Providers Care Merchandise Pickup/Receiving Associate Name Role Phone Sal Jose MD Primary Care Provider [phone] Encounter Details Date Type Department Care Team (Late st Contact Info) Description 11/27/2021 Scanned Document Pulmonary Critical [place] 136 [facility] [address] [place] [address] External, Provider Social History Tobacco Use Types [...] 1:45 PM EDT Office Visit Stroke 800 [place] [address] Kristine Kelly MD PhD 800 [place] [phone] 05/04/2025 1:00 PM EDT Follow Up Cardiovascular Medicine at 175 [facility] 175 [place] [address] Mike Hilario MD 175 [facility] 2 [place] [phone] 06/22/2025 2:00 PM EST Office Visit [facility] Epilepsy [facility] Seizures at 800 [facility] 800 [facility] [place] [address] Virgie Mast MD PhD 800 [place] [phone] 08/09/2025 1:00 PM EST Office Visit [place]monary Critical [place] 136 [facility] 302 [place], [place] [address] Ramon Nixon MD 136 [facility] 302 [place] [address] Ksenia Jain, RT documented as of this encounter Visit Diagnoses Not on filedocumented in this encounter Care Teams Merchandise Pickup/Receiving Associate Relationship Specialty Start Date End Date Sal Jose MD [address] [place] [phone] PCP - General Family Medicine 10/16/23 documented as of this encounter
--- OUTSIDE RECORDS SUMMARY | 2025-04-12 16:21 | XMS_ITS | Encounter Summary ---
Author Organization [facility] Address Unknown Care Team Providers Care Tanyard Worker Name Role Phone Sal Jose MD Primary Care Provider [phone] Encounter Details Date Type Department Care Team (Late st Contact Info) Description 08/13/2023 Scanned Document Pulmonary Critical [place] 136 [facility] [address] [place] [address] External, Provider Social History Tobacco Use Types [...] 1:45 PM EDT Office Visit Stroke 800 [place] [address] Kristine Kelly MD PhD 800 [place] [phone] 05/04/2025 1:00 PM EDT Follow Up Cardiovascular Medicine at 175 [facility] 175 [place] [address] Mike Hilario MD 175 [facility] 2 [place] [phone] 06/22/2025 2:00 PM EST Office Visit [facility] Epilepsy [facility] Seizures at 800 [facility] 800 [facility] [place] [address] Virgie Mast MD PhD 800 [place] [phone] 08/09/2025 1:00 PM EST Office Visit Pulmonary Critical [place] 136 [facility] 302 [place], [place] [address] Ramon Nixon MD 136 [facility] 302 [place] [address] Ksenia Jain, RT documented as of this encounter Visit Diagnoses Not on filedocumented in this encounter Care Teams Tanyard Worker Relationship Specialty Start Date End Date Sal Jose MD [address] [place] [phone] PCP - General Family Medicine 10/16/23 documented as of this encounter
--- OUTSIDE RECORDS SUMMARY | 2025-04-12 16:21 | XMS_ITS | Encounter Summary ---
Author Organization [facility] Address [address] [place] [phone] Care Team Providers Care Physician Coding Specialist Name Role Phone Sal Jose MD Primary Care Provider Encounter Details Date Type Department Care Team (Late st Contact Info) Description 08/09/2014 Abstract Endocrinology at [address] [place] [address] Emerita Beth MD [address] [place] [phone] Social History Tobacco Use Types Packs/Day Years [...] PM EDT Office Visit Stroke 800 [place], [place] [address] Kristine Kelly MD PhD 800 [place] [phone] 05/04/2025 1:00 PM EDT Follow Up Cardiovascular Medicine at 175 [facility] 175 [place] [address] Mike Hilario MD 175 [facility] 2 [place] [address] 06/22/2025 2:00 PM EST Office Visit [facility] Ep[facility] Seizures at [address] [facility] [address] [facility] [place] [address] Virgie Mast MD PhD 800 [place] [phone] 08/09/2025 1:00 PM EST Office Visit Pulmonary Critical [place] 136 [facility] [address] [place], [place] [address] Ramon Nixon MD 136 [facility] 302 [place] [phone] Ksenia Jain, RT documented as of this encounter Visit Diagnoses Not on filedocumented in this encounter Care Teams Physician Coding Specialist Relationship Specialty Start Date End Date Sal Jose MD [address] [place] [phone] PCP - General Family Medicine 10/16/23 documented as of this encounter
--- OUTSIDE RECORDS SUMMARY | 2025-04-12 16:21 | XMS_ITS | Encounter Summary ---
Author Organization [facility] Address Unknown Care Team Providers Care Size Cutter Name Role Phone Sal Jose MD Primary Care Provider Encounter Details Date Type Department Care Team (Late st Contact Info) Description 08/13/2023 Scanned Document Pulmonary Critical [place] 136 [facility] [address] [place] [address] External, Provider Social History Tobacco Use Types [...] 1:45 PM EDT Office Visit Stroke 800 [place] [address] Kristine Kelly MD PhD 800 [place] [phone] 05/04/2025 1:00 PM EDT Follow Up Cardiovascular Medicine at 175 [facility] 175 [place] [address] Mike Hilario MD 175 [facility] 2 [place] [phone] 06/22/2025 2:00 PM EST Office Visit [facility] at 800 [facility] 800 [facility] [place] [address] Virgie Mast MD PhD 800 [place] [phone] 08/09/2025 1:00 PM EST Office Visit [place] 136 [facility] 302 [place], [place] [address] Ramon Nixon MD 136 [facility] 302 [place] [address] Ksenia Jain, RT documented as of this encounter Visit Diagnoses Not on filedocumented in this encounter Care Teams Size Cutter Relationship Specialty Start Date End Date Sal Jose MD [address] [place] [phone] PCP - General Family Medicine 10/16/23 documented as of this encounter
== END 2025-04-12 14:30 | disposition home or self-care (01) ==
LOC: HO.HCS 13:46
PROVIDERS: PCP Family Medicine; Visit Provider Internal Medicine
DX: R07.2 Precordial pain (principal); M34.1 CR(E)ST syndrome; M34.9 Systemic sclerosis, unspecified
CPT/HCPCS: 99214; G2211

== ENCOUNTER → 2025-04-12 13:45 | Outpatient (BNVA) | payer MEDICARE, MEDICAID, SELFPAY | PROVIDERS: PCP Family Medicine; Visit Provider Internal Medicine | DX: M34.9 Systemic sclerosis, unspecified (principal); M34.1 CR(E)ST syndrome; R07.2 Precordial pain | CPT/HCPCS: 99212 ==

== ENCOUNTER 2025-05-12 13:12 | Outpatient (REF) | payer MEDICARE, MEDICAID, SELFPAY ==
[2025-05-12 13:39] LABS: MANUAL DIFF FLAG NO
[2025-05-12 14:21] LABS: Hematocrit 39.3 % (37.0-47.0); Hemoglobin 13.0 g/dl (12.0-16.0); Imm Gran Abs Auto 0.04 X10*3/uL (0.00-0.03); Imm Gran Pct Auto 0.6 % (0.0-0.4); Lymphocytes Absolute Auto 2.2 X10*3/uL (1.2-4.9); Mean Corpuscular HGB Conc 33.1 g/dl (31.0-35.0); Mean Corpuscular Hemoglobin 30.0 pg (27.0-33.0); Mean Corpuscular Volume 90.8 fL (80.0-98.0); NRBC Abs Auto 0.000 X10*3/uL (0.0-0.012); NRBC Pct Auto 0.0 /100WBC (0.0-0.2); Platelet Count 259 X10*3/uL (160-400); Red Blood Count 4.33 X10*6/uL (4.20-5.50); White Blood Count 6.8 X10*3/uL (4.8-10.8)
[2025-05-12 15:15] LABS: Alanine Aminotransferase 20 U/L (0-31); Albumin Level 4.4 g/dL (3.5-5.0); Alkaline Phosphatase 99 U/L (39-117); Anion Gap 10 (12-20); Aspartate Amino Transferase 19 U/L (5-31); Blood Urea Nitrogen 13 mg/dL (9-16); Calcium 9.4 mg/dL (8.4-10.2); Carbon Dioxide 30 mmol/L (22-29); Chloride 106 mmol/L (96-108); Cholesterol 136 mg/dL (<200); Estimated Glomerular Filt Rate > 60; Free T4 (Free Thyroxine) 0.97 ng/dL (0.71-1.85); HDL Cholesterol 32 mg/dL (>40); Potassium 3.3 mmol/L (3.3-5.1); Sodium 143 mmol/L (135-145); Thyroid Stimulating Hormone 0.02 uIU/mL (0.32-4.0); Total Protein 6.9 g/dL (6.5-8.0); Triglycerides 199 mg/dL (<150); Uric Acid 4.6 mg/dL (2.4-5.7)
[2025-05-12 15:25] LABS: Folate 9.5 ng/mL (> or = 4.0); Vitamin B12 266 pg/mL (200-900)
[2025-05-12 15:38] LABS: Appearance Urine Clear; Glucose Urine UA Negative (Negative); PH 6.0 (5.0-9.0); Specific Gravity - Urine 1.020 (1.005-1.025); UMIC TRIGGER UACC YES
[2025-05-12 15:43] LABS: UACC Culture Trigger YES
[2025-05-12 16:45] LABS: Microalbum/Creatinine Ratio Ur 88.7 ug/mg cr (<30)
[2025-05-12 16:47] LABS: Cannabinoid Screen Urine Not Detected (Not Detect)
[2025-05-16 12:23] LABS: Tramadol, Ur 2202
[2025-05-16 12:24] LABS: Desmethyltramadol, Ur 7500
== END 2025-05-12 13:13 | disposition home or self-care (01) ==
LOC: HO.LAB 13:12
PROVIDERS: PCP Family Medicine; Visit Provider Family Medicine
DX: Z51.81 Encounter for therapeutic drug level monitoring (principal); Z00.00 Encounter for general adult medical examination without abnormal findings; I10 Essential (primary) hypertension; E53.8 Deficiency of other specified B group vitamins; M25.561 Pain in right knee; L73.9 Follicular disorder, unspecified; E03.9 Hypothyroidism, unspecified; M34.1 CR(E)ST syndrome; R07.9 Chest pain, unspecified; G89.29 Other chronic pain; R73.01 Impaired fasting glucose
CPT/HCPCS: 80053; 80061; 80307; 80373; 81001; 82043; 82570; 82607; 82746; 83036; 83921; 84439; 84443; 84480; 84550; 85025; 86141; 87086

== ENCOUNTER 2025-05-13 13:13 | Outpatient (AMB) | payer MEDICARE, MEDICAID, SELFPAY ==
[2025-05-13 13:52] VITALS: BP 134/74; PULSE 61; TEMP 36.3; O2SAT 99; BMI 33.8
--- NOTE | 2025-05-13 13:52 | MHC.OFFWIV ---
Intake Vital Signs 05/13/25 13:52 Height 5 ft 8 in Weight 222 lb BMI 33.8 BP 134/74 Blood Pressure Location Lt brachial Position Sitting Pulse 61 Pulse Source Pulse Oximeter Temp 97.3 F Temp Source Oral Pulse Oximetry (%) 99 Oxygen Delivery Method Room Air Intake Visit Reasons: EP Heavy vaginal bleeding Intake Note: pt presents with concern for vaginal bleeding with clotting this morning. bleeding d/c around 12pm today. pt reports h/o scleroderma interstitial lung disease, h/o stroke, heart attack. colonoscopy & endoscopy. Patient Tobacco Use Status: Never used Tobacco Allergies Penicillins Allergy (Severe, Verified 05/13/25 13:56) Anaphylaxis morphine Adverse Reaction (Intermediate, Verified 05/13/25 13:56) Confusion Do you need a note to return to daycare/school/sports/work: No HPI HPI Comments History of Present Illness Details This is a 64-year-old female with past medical history significant for essential hypertension, hyperlipidemia, multiple TIA/CVA on dual antiplatelet therapy with aspirin/clopidogrel, history pulmonary emboli, on interstitial lung disease, scleroderma, CREST syndrome, thyroid storm status post thyroidectomy and resultant hypothyroidism who presented to the walk-in clinic with abnormal uterine/vaginal bleeding. Patient states she had thyroid storm just about 34 years ago requiring a thyroidectomy. Patient states she has not had a menstrual period since then. For the past 10 days, patient has been having difficulty urinating and decreased urination despite increased fluids. She denies any dysuria, hematuria, urinary urgency, or urinary frequency. She denies any flank pain. She woke up this morning around 7:00 AM with a moderate amount of blood in her underwear. She states she kept wiping and wiping and she continued to have bleeding with blood clots measuring approximately 1 cm. She put on a pad at 8:00 AM and soaked through 2 pads in 4 hours. She then showered at 12:00 PM and put on a new pad. She arrived to the walk-in clinic at 1:20PM and went to the bathroom around 2:00 PM and the pad was clean without any blood. She denies any recent trauma/injury to the area or any sexual activity. She denies any abdominal/pelvic pain or flank/back pain. She states she had a low-grade fever of 100.6F overnight 4 nights ago with associated nausea/vomiting that last about 1.5 day but this has since resolved and she has had no further nausea/vomiting, fevers/chills, night sweats, or weight loss. Patient states she has an appointment with Gynecology on 07/06/2025 to establish care; however, they could not get her in sooner she she has not yet established patient. She then reached out to her primary care physician to obtain a stat referral for Gynecology and her there is nothing PCP office sent her to the walk-in clinic for a stat referral. [facility] Medical History (Updated 04/13/25 @ 08:58 by Francis Green MD) Nonalcoholic fatty liver Migraine Hyperlipidemia CREST syndrome Chronic kidney disease Hypertension Pulmonary emboli Middle cerebral artery aneurysm Subclavian steal syndrome of right subclavian artery Chronic ischemic right MCA stroke Stroke Lung disease Surgical History (Updated 02/22/25 @ 12:34 by Francis Green MD) S/P IVC filter H/O brain surgery Family History Maternal Grandmother FH: mental illness Brother FH: mental illness Sister FH: mental illness Father FH: mental illness Social History (Updated 03/10/25 @ 11:09 by Razia Dial MA) Housing: Apartment Alcohol intake: never Patient Tobacco Use Status: Never used Tobacco e-Cigarette/Vaping Use: Never Used Second Hand Smoke Exposure: No Substance Use Type: Other service: No Current occupational status: retired Current occupational exposures/hazards: No Cognitive needs: Yes (aphasia ) Hearing needs: No Vision needs: Yes Review of Systems Const All systems reviewed & are unremarkable except as noted in HPI and below Reports no additional complaints Eyes Reports no additional complaints ENT Reports no additional complaints Card Reports no additional complaints Resp Reports no additional complaints GI Reports no additional complaints Reports no additional complaints Musc Reports no additional complaints Skin/Breast Reports system reviewed and no additional complaints, except as documented Neuro Reports no additional complaints Psych Reports no additional complaints Endo Reports no additional complaints Jerry/Lymph Reports no additional complaints Aller/Immun Reports no additional complaints Physical Exam Exam Exam: Vital signs reviewed. Constitutional: Non-toxic appearing. No acute distress. Well-developed and well-nourished. HEENT: Normocephalic and atraumatic. PERRL/EOMI. Skin: Warm and dry. No rashes or lesions noted. Neck: Full and painless range of motion. No cervical lymphadenopathy. Cardio: Regular rate and rhythm. No murmurs, gallops, or rubs. No lower extremity edema. No JVD. Pulmonary: No respiratory distress. No accessory muscle usage. Clear to auscultation bilaterally without wheezing, crackles, or rhonchi. Gastrointestinal: Soft, nontender, and nondistended in all 4 quadrants. Normoactive bowel sounds in all 4 quadrants. Genitourinary: No CVA tenderness. Pelvic exam was deferred as patient is not actively bleeding at this time and pelvic exam would cause further trauma to the patient, which she would prefer to avoid. Musculoskeletal: Normal range of motion in joints throughout the body. No deformity or other signs of injury. Neuro: Alert and oriented x4. Cranial nerves 2-12 grossly intact. No focal deficits appreciated. Psych: Normal mood and affect. Vital Signs: Last Vital Signs Temp 97.3 F 05/13/25 13:52 Pulse 61 05/13/25 13:52 BP 134/74 05/13/25 13:52 Pulse Ox 99 05/13/25 13:52 Oxygen Delivery Method Room Air 05/13/25 13:52 BMI result Body Mass Index 33.8 Assessment & Plan Assessment & Plan (1) Abnormal vaginal bleeding: Code(s): N93.9 - Abnormal uterine and vaginal bleeding, unspecified Plan This is a 64-year-old female with past medical history significant for essential hypertension, hyperlipidemia, multiple TIA/CVA on dual antiplatelet therapy with aspirin/clopidogrel, history pulmonary emboli, on interstitial lung disease, scleroderma, CREST syndrome, thyroid storm status post thyroidectomy and resultant hypothyroidism who presented to the walk-in clinic with abnormal uterine/vaginal bleeding. Patient was sent to the walk-in clinic at the advice of her PCP office for stat referral to the chief internal auditor to obtain a sooner appointment. I explained to the patient and a message was sent to the patient's PCP office that we do not usually send referrals for gynecology; however, as a courtesy to the patient since her PCP informed her to come here, a stat gynecology referral was placed. She was advised to proceed directly to the emergency room if she were to develop severe vaginal bleeding such as soaking through 3 pads in 1 hour, if she were to develop severe flank, back, abdominal, or pelvic pain, if she were to develop persistent fever/chills or nausea/vomiting, and if she were to develop persistent urinary retention. Patient verbalized understanding and she is in agreement with the plan. Orders: Referrals [employer] TRAFFIC [employer]ER Referral N93.9 - Abnormal uterine and vaginal bleeding, unspecified Coding Level of Care Code Est Pt Level 3 (60099) Diagnoses Abnormal vaginal bleeding N93.9
== END 2025-05-13 15:09 | disposition home or self-care (01) ==
PROVIDERS: PCP Family Medicine; Visit Provider Physician Assistant Medical
DX: N93.9 Abnormal uterine and vaginal bleeding, unspecified (principal)

== ENCOUNTER → 2025-05-13 13:13 | Outpatient (BNVA) | payer MEDICARE, MEDICAID, SELFPAY | PROVIDERS: PCP Family Medicine; Visit Provider Physician Assistant Medical | DX: I10 Essential (primary) hypertension (principal); N93.9 Abnormal uterine and vaginal bleeding, unspecified; E89.0 Postprocedural hypothyroidism; Z86.73 Personal history of transient ischemic attack (TIA), and cerebral infarction without residual deficits; Z79.02 Long term (current) use of antithrombotics/antiplatelets | CPT/HCPCS: 99212 ==

== ENCOUNTER 2025-05-19 10:43 | Outpatient (AMB) | payer MEDICARE, MEDICAID, SELFPAY ==
--- NOTE | 2025-05-19 11:14 | A.OFFVIS_ITS ---
Vital Signs 05/19/25 11:24 Height 5 ft 8 in Weight 226 lb 3.108 oz BMI 34.4 BP 134/82 Blood Pressure Location Lt brachial Position Sitting Pulse 59 Pulse Source Pulse Oximeter Pulse Oximetry (%) 100 Oxygen Delivery Method Room Air Intake Visit Reasons: Systemic sclerosis Intake Note: Patient presents for Systemic Sclerosis follow up. Allergies Penicillins Allergy (Severe, Verified 05/19/25 11:19) Anaphylaxis morphine Adverse Reaction (Intermediate, Verified 05/19/25 11:19) Confusion Medication List - Last Reconciled 05/19/25 by Jeny Castellon MD albuterol sulfate 2.5 mg continuous nebulization albuterol sulfate 90 mcg/actuation inhalation amlodipine-benazepril 5-10 mg 1 cap PO DAILY 90 days aspirin 81 mg PO DAILY atorvastatin 80 mg PO DAILY budesonide 0.5 mg inhalation budesonide-formoterol 160-4.5 mcg/actuation inhalation cetirizine 10 mg PO DAILY PRN clindamycin phosphate 1% 1 appl topical DAILY 30 days clopidogrel 75 mg PO DAILY cyanocobalamin (vitamin B-12) 1,000 mcg IM QMONTH 30 days diclofenac sodium 1% (Arthritis Pain (diclofenac)) 4 grams topical BID 30 days fenofibrate 150 mg PO DAILY gabapentin 400 mg PO 3XD isosorbide mononitrate ER 30 mg PO QAM levetiracetam mg PO levothyroxine 50 mcg PO DAILY 90 days levothyroxine 200 mcg PO DAILY 90 days lidocaine 5% topical metoprolol succinate ER 25 mg PO BID 90 days montelukast 10 mg PO DAILY mycophenolate mofetil orally 250mg capsules 5 pills BID; pantoprazole 20 mg PO BID pentoxifylline ER 400 mg PO TID silver sulfadiazine 1% (Silvadene) 1 appl topical BID 10 days syringe with needle, safety (BD Integra Syringe) As directed tramadol 50 mg PO BID PRN 30 days zolpidem 10 mg PO BEDTIME 30 days HPI Comments Details: Patient is a 64-year-old female with asthma, hypertension complicated by stroke, carotid artery stenosis 2/p stenting on the right, 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, hyperlipidemia complicated by coronary artery disease, 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 2/2 Grave's Disease, DVT c/b PE s/p IV filter, scleroderma complicated by ILD here today to establish care Diagnosed 20 years ago with scleroderma based on esophoageal dysmotility, ILD, skin tightening, raynaud's, and telangiectasias Was initially being treated at [place] but then relocated to [facility] and was being treated at [facility] During her time in [place] her health deteriorated and was diagnosed with stroke, subsequently found to have Redman Redman disease Also has had NSTEMI without stenting Moved back to the [place] after after her ROS: GI - alternates with constipation and diarrhea Complaining of bilateral shoulder pain, bilateral hip pain, bilateral knee pain, hands and feet COUNTS INCLUDE 234 BEDS AT THE [facility] Medical History (Updated 04/13/25 @ 08:58 by Francis Green MD) Nonalcoholic fatty liver Migraine Hyperlipidemia CREST syndrome Chronic kidney disease Hypertension Pulmonary emboli Middle cerebral artery aneurysm Subclavian steal syndrome of right subclavian artery Chronic ischemic right MCA stroke Stroke Lung disease Surgical History S/P IVC filter H/O brain surgery Family History Maternal Grandmother FH: mental illness Brother FH: mental illness Sister FH: mental illness Father FH: mental illness Social History Housing: Apartment Alcohol intake: never Patient Tobacco Use Status: Never used Tobacco e-Cigarette/Vaping Use: Never Used Second Hand Smoke Exposure: No Substance Use Type: Other service: No Current occupational status: retired Current occupational exposures/hazards: No Cognitive needs: Yes (aphasia ) Hearing needs: No Vision needs: Yes Review of Systems Const Details: Review of Systems Constitutional: Denies consistent fevers, chills, weight loss ENT: Denies vision changes, eye pain or eye redness, dental caries, dry mouth Pulm: Denies hemoptysis, wheezing Skin: Denies nail changes, photosensitivity, SERVICE TRAINER: Denies headaches, weakness, paresthesias, recurrent falls MSK: as per HPI All other systems reviewed and are unremarkable except noted above Physical Exam Exam Exam: Vital signs reviewed Physical Examination CONSTITUITIONAL Patient alert and cooperative. Well appearing and in no apparent painful distress MSK Hands * Right Hand: Able to make a fist. No swelling or tenderness to palpation of the MCPs, PIPs or DIPs. * Left Hand: Able to make a fist. No swelling or tenderness to palpation of the MCPs, PIPs or DIPs. Wrists * Right Wrist: Full ROM to flexion and extension. No swelling or TTP * Left Wrist: Full ROM to flexion and extension. No swelling or TTP Elbows * Right Elbow: Full ROM. No swelling or TTP. No TTP of the medial epicondyle. No TTP of the lateral epicondyle * Left Elbow: Full ROM. No swelling or TTP. No TTP of the medial epicondyle. No TTP of the lateral epicondyle Shoulders * Right shoulder: No swelling noted. No TTP of the AC joint. No TTP of the subacromial bursa. No TTP of the posterior shoulder * Left shoulder: No swelling noted. No TTP of the AC joint. No TTP of the subacromial bursa. No TTP of the posterior shoulder * Decreased ROM Bilaterally Knees * Right knee: F No swelling noted. No TTP of the knee joint line. No TTP of pes anserine bursa * Left knee: Full ROM. No swelling noted. No TTP of the knee joint line. No TTP of pes anserine bursa. * Crepitations felt bilaterally Ankles * Right ankle: Good ankle dorsiflexion and plantar flexion. No swelling. No TTP of the ankle joint * Left ankle: Good ankle dorsiflexion and plantar flexion. No swelling. No TTP of the ankle joint Feet * Right foot: Negative squeeze test * Left foot: Negative squeeze test Tender points? * No tenderness to palpation of the bilateral trapezius, supraspinatus, anterior costochondral junctions, bilateral suboccipital muscle insertions SKIN Flat telangiectasias noted Abnormal nailfold capillaroscopy Right Left Face 0 Anterior chest 0 Abdomen 0 Upper Arm 0 0 Forearm 0 0 Hand 2 2 Fingers 2 2 Thigh 0 0 Leg 0 0 Foot 0 0 mRSS Total 8 Vital Signs: Last Vital Signs Pulse 59 05/19/25 11:24 BP 134/82 05/19/25 11:24 Pulse Ox 100 05/19/25 11:24 Oxygen Delivery Method Room Air 05/19/25 11:24 BMI result Body Mass Index 34.4 Results Reviewed Results Reviewed: Laboratory Tests 05/12/25 13:37 WBC 6.8 RBC 4.33 Hgb 13.0 Hct 39.3 Plt Count 259 Sodium 143 Potassium 3.3 Chloride 106 Carbon Dioxide 30 H BUN 13 Creatinine 0.65 Uric Acid 4.6 AST 19 ALT 20 Assessment & Plan Assessment & Plan (1) Scleroderma: Code(s): M34.9 - Systemic sclerosis, unspecified Category: Medical Plan: #Scleroderma Patient is a 64-year-old female with scleroderma as evidenced clinically by her flat telangiectasias, skin tightening to her hands, abnormal nail fold capillaries with Raynaud's, tight oral aperture, GERD and ILD. With respect to her scleroderma she is currently managed by Pulmonary for her ILD, and Gastroenterology for her GI manifestations. At this time her main joint complaints are related to osteoarthritic changes and not her underlying scleroderma. I discussed several therapeutic options including steroid injections and gel injections. Patient would like to think about them and will get back to us. With respect to her Raynaud's recommended conservative treatment. She should continue her amlodipine based antihypertensive. The isosorbide nitrate may also be helpful with her Raynaud's as well. I discussed at length with the patient that while scleroderma is an autoimmune disease there was no treatment specifically geared towards scleroderma but the sequelae of the connective tissue fibrosis. Thankfully at this time her modified [place] skin score is low and not extending past her hands. We will continue to monitor her. Plan - Continue pulm f/u and MMF as per pulm - No additional immunosuppression at this time - RTC 4 months - Labs before visit: LISS, scleroderma panel, ESR, CRP (2) Polyarticular osteoarthritis: Code(s): M15.9 - Polyosteoarthritis, unspecified Plan: #Polyarticular OA Discussed therapeutic options for osteoarthritis Patient will think about this and let us know her desires Plan I spent 60 minutes reviewing the record and labs, taking a history, examining the patient, discussing the treatment plan, explaining the diagnoses, ordering diagnostic work up and documenting in the medical record Coding Level of Care Code New Pt Level 5 (85358) Complex EM visit Add On G2211 Diagnoses Scleroderma M34.9 Polyarticular osteoarthritis M15.9
[2025-05-19 11:24] VITALS: BP 134/82; PULSE 59; O2SAT 100; BMI 34.4
== END 2025-05-19 12:50 | disposition home or self-care (01) ==
LOC: HO.RHES 10:44
PROVIDERS: PCP Family Medicine; Visit Provider Student in an Organized Health Care Education/Training Program
DX: M34.9 Systemic sclerosis, unspecified (principal); M15.9 Polyosteoarthritis, unspecified
CPT/HCPCS: 99205; G2211

== ENCOUNTER → 2025-05-19 10:43 | Outpatient (BNVA) | payer MEDICARE, MEDICAID, SELFPAY | PROVIDERS: PCP Family Medicine; Visit Provider Student in an Organized Health Care Education/Training Program | DX: M34.9 Systemic sclerosis, unspecified (principal); J84.9 Interstitial pulmonary disease, unspecified; I73.00 Raynaud's syndrome without gangrene; M15.9 Polyosteoarthritis, unspecified | CPT/HCPCS: 99202 ==

== ENCOUNTER 2025-05-26 09:53 | Outpatient (AMB) | payer MEDICARE, MEDICAID, SELFPAY ==
--- NOTE | 2025-05-26 10:02 | MHC.OFFVIS ---
Vital Signs 05/26/25 10:03 Height 5 ft 8 in Weight 226 lb 6 oz BMI 34.4 BP 124/76 Blood Pressure Location Lt brachial Position Sitting Pulse 62 Pulse Source Pulse Oximeter Pulse Oximetry (%) 97 Oxygen Delivery Method Room Air Intake Visit Reasons: INP-Sleep Apnea Intake Note: Patient presents OTHER SPORTS OFFICIAL EZEQUIEL. She has some difficulty sleeping. She has had a CPAP in the past and history of sleep apnea(did not work). Last sleep study was years ago in [place] not sure where. Hard time staying asleep(due to pain). Goes to bed 9-10pm wakes up at 8am. No naps/ dull headaches sometimes in morning. Accompanied by: Self / Same As Patient Allergies Penicillins Allergy (Severe, Verified 05/26/25 10:06) Anaphylaxis morphine Adverse Reaction (Intermediate, Verified 05/26/25 10:06) Confusion HPI Comments Details: 64 year old female with history of Scleroderma present for an evaluation of sleep apnea. PMH 02/[address] Benavides prescribed her Keppra 500mg po TID for quiet seizures, she zones out and can not react, loses her urinary function. H/o strokes x3 left sided weakness, with hemiparesis, left sided facial droop, dysphagia, and dysarthria. Stent planced in the r. carotid, and jackson-jackson disease, she is on clopidegrel with aspirin and being followed by Rheumatology. H/O Thyroidectomy. Strokes January 2021, Apr 2021 and her last one was in December 2023 she went to [place], had strawberry eye with bp 200/180,they told her she had TIA and bp was reduced along with complete workup. She goes to bed about 10pm, falls asleep during the late hours of night depending on her pain level. She takes melatonin 10mg if unable to fall asleep despite taking tramadol 50mg po BID, she wakes up at 8am daily. She denies snoring, gasping for air or witnessed apneas. She has difficulty with exhaling air out of her lungs when she breathes at night not during the day. She has chronic joint pain due to scleroderma, and ulcerated wounds on her digits which makes laying on her side painful. She has cortisone injections scheduled for each site of shoulders and knees as this lessens her pain. She exercises daily to improve her mobility and activities with bilateral hand exercises.She has dysphagia with drooling, she had speech therapy and symptoms improved. During flares she is unable to swallow liquids. She denies headaches, bruxism, jaw pain and clenching. Her memory is poor, she forgets words, has aphasia, dysphasia, she miscommunicates and switches words interchangeably. She no longer drives. Has a NURSERY LABORER come help her 2x a week with showering, cooking and cleaning. Since the strokes / TIA treatments with stent placement and coils for aneurysms, her pesonality is different and she does not feel like herself. Her Mood is stable, she get irritable, and frustrated though is coping with lifestyle and diet changes. She has peripheral neuropathy bilaterally in hands and feet with weakness. She denies dropping things and fine motor function deficits. She walks with her dogs daily 4x a day 1/3 a mile per each walk for a total of 1.3 miles daily. She eats a well balanced diet, and would like a weight management consultation. [facility] Medical History Nonalcoholic fatty liver Migraine Hyperlipidemia CREST syndrome Chronic kidney disease Hypertension Pulmonary emboli Middle cerebral artery aneurysm Subclavian steal syndrome of right subclavian artery Chronic ischemic right MCA stroke Stroke Lung disease Surgical History S/P IVC filter H/O brain surgery Family History Maternal Grandmother FH: mental illness Brother FH: mental illness Sister FH: mental illness Father FH: mental illness Social History Housing: Apartment Alcohol intake: never Patient Tobacco Use Status: Never used Tobacco e-Cigarette/Vaping Use: Never Used Second Hand Smoke Exposure: No Substance Use Type: Other service: No Current occupational status: retired Current occupational exposures/hazards: No Cognitive needs: Yes (aphasia ) Hearing needs: No Vision needs: Yes Physical Exam Vital Signs: Last Vital Signs Pulse 62 05/26/25 10:03 BP 124/76 05/26/25 10:03 Pulse Ox 97 05/26/25 10:03 Oxygen Delivery Method Room Air 10/23/25 10:03 BMI result Body Mass Index 34.4 Const General: cooperative, comfortable and no acute distress Nutritional Appearance: overweight Orientation/consciousness: patient oriented x3 Limitations: ambulation with cane HEENT Teeth and gingiva: other (mallampti score 3) Eyes Pupils: Equal, round and reactive pupils present Resp Effort & Inspection: normal respiratory effort and able to speak in complete sentences Neuro Other: limited rom on lateral neck rotation limited rom on extension and flexion of neck L>R extremity tremor General: patient oriented x3 Cranial nerves: Yes Facial sensation intact/muscles of mastication intact, Yes Equal, round and reactive pupils present, Yes Normal accommodation reflex present, Yes Normal facial strength present, Yes Midline tongue present, Yes Ability to bilaterally rotate head present (with limitations) and Yes Ability to bilaterally elevate shoulders present Cognition (Neuro): normal cognition Gait exam (Neuro): Ataxic gait present Motor exam (neuro): Abnormal motor strength present, Tremors during motor activity present and Abnormal muscle tone present Psych Appearance: well kempt Speech and movement: Normal speech and movement present Attitude: cooperative Thought process: Normal thought process present Insight: Good insight present (Psych) Results Reviewed Results Reviewed: labs reviewed with pt. B12 is low normal 266 Assessment & Plan Assessment & Plan (1) Excessive daytime sleepiness: Code(s): G47.19 - Other hypersomnia Category: Medical (2) Sleep apnea: Code(s): G47.30 - Sleep apnea, unspecified Category: Medical Qualifiers: Sleep apnea type: unspecified type Qualified Code(s): G47.30 - Sleep apnea, unspecified (3) Cognitive and behavioral changes: Code(s): R41.89 - Other symptoms and signs involving cognitive functions and awareness; R46.89 - Other symptoms and signs involving appearance and behavior Category: Medical (4) Sleep difficulties: Code(s): G47.9 - Sleep disorder, unspecified Category: Medical (5) Neuropathy of both feet: Code(s): G57.93 - Unspecified mononeuropathy of bilateral lower limbs Category: Medical Plan PSG in lab due to excessive daytime sleepiness, snoring and sleep difficulties at [facility], r/o ezequiel Difficulties with sleep start ambien 5mg po daily at bedtime. She discontinued Tramadol 50mg po BID was intolerable and lacked efficacy. Labs to r/o deficiencies and anemia. Peripheral Neuropathy of feet and hands will monitor she is taking gabapentin 400mg po TID per pcp Cognitive and behavioral changes MRI will consider at future appt. (MMSE and APO E4 testing) 3month f/u Orders: Orders RT PSG in-lab sleep study 05/26/25 G47.19 - Other hypersomnia, J84.9 - Interstitial pulmonary disease, unspecified Medications: Changed From zolpidem 10 mg PO BEDTIME 30 days 30 tabs 0RF G47.9 - Sleep disorder, unspecified To zolpidem may take one to two tablet at bedtime for insomnia or sleep difficulties as needed. (PRN) Do not take more than 10mg po per incident of insomnia. 5 mg PO BEDTIME PRN 30 tabs 0RF sleep apnea 30 days MDD 10mg G47.9 - Sleep disorder, unspecified Refilled cyanocobalamin (vitamin B-12) 1,000 mcg IM QMONTH 1 ea 3RF 30 days Patient Instructions: Sleep Hygiene provided: set a scheduled bedtime and wake time to help regulate the circadian rhythm and balance the release of pituitary hormones. Sleep in a dark room, temperatures below 68 degrees, and no devices n bed. Limit caffeinated products 6 hours prior to bed, and limit fluids 2-4 hours prior to bed. Gentle night yoga, diffusing essential oils, and playing soft music can be relaxing. Coding Level of Care Code New Pt Level 4 (50821) Diagnoses Excessive daytime sleepiness G47.19 Sleep apnea, unspecified type G47.30 Sleep apnea type: unspecified type Cognitive and behavioral changes R41.89; R46.89 Sleep difficulties G47.9 Neuropathy of both feet G57.93 Sleep Questionnaire Difficulty falling asleep: Yes Difficulty staying asleep?: Yes Number of arousals: 2-6x Snoring: Yes Witnessed apneas: No Gasping arousals: No Nocturia: No GERD: Yes Vivid dreams: No Acting out dreams: No Abnormal behavior in sleep: Yes Abnormal movements in sleep: Yes Morning headaches: Yes Excessive daytime sleepiness: Yes Daytime naps: No Restless legs: Yes Hallucinations: Yes Sleep paralysis: Yes Drop attacks: Yes Sleep Study: Yes CPAP: Yes
[2025-05-26 10:03] VITALS: BP 124/76; PULSE 62; O2SAT 97; BMI 34.4
--- OUTSIDE RECORDS SUMMARY | 2025-05-26 11:26 | XMS_ITS | Encounter Summary ---
Author Organization [facility] and [facility] Address [address] [place] [phone] Care Team Providers Care Professional Wrestler Name Role Phone Sal Jose MD Primary Care Provider [phone] Encounter Details Date Type Department Care Team (Late Contact Info) Description 10/28/2023 Scanned Document CARE CENTER SCHEDULING 25 [place], [place] [id number] Provider, Historical . Social History Tobacco Use Types Packs/Day Years [...] Department Care Team (Late Contact Info) Description 06/22/2025 2:00 PM EST Office Visit Epilepsy & Seizures at 800 [facility] 800 [facility] [place] [address] Virgie Mast MD PhD [address] [place] [phone] 08/09/2025 1:00 PM EST Office Visit Pulmonary Critical [place] 136 [facility] [address] [place], [place] [address] Ramon Nixon MD [address] [place] [address] 302 [place] [address] SoaresZakiKsenia, RT 05/04/2026 1:45 PM EDT Office Visit Stroke 800 [facility] [place] [address] Kristine Kelly MD PhD [address] [place] [address] 05/09/2026 1:00 PM EDT Follow Up Cardiovascular Medicine at 175 [facility] THIRD [place]LO[place], [place] [address] Mike Hilario MD 175 [facility] [address] 2 [place] [address] documented as of this encounter Procedures Procedure [...] on filedocumented in this encounter Care Teams Professional Wrestler Relationship Specialty Start Date End Date Sal Jose MD [facility]3 [facility] [address] [place] [phone] PCP - General Family Medicine 10/16/23 documented as of this encounter
--- OUTSIDE RECORDS SUMMARY | 2025-05-26 11:26 | XMS_ITS | Encounter Summary ---
Author Organization [facility] and [facility] Address [address] [place] [phone] Care Team Providers Care Floral Designer Salesperson Name Role Phone Sal Jose MD Primary Care Provider Encounter Details Date Type Department Care Team (Late Contact Info) Description 10/28/2023 Scanned Document [facility] at [address] [place] [address] Joao Loredo MD [address] [place] [phone] Social History Tobacco Use Types Packs/Day Years [...] Description 06/22/2025 2:00 PM EST Office Visit [facility] at [address] [place] [phone] Virgie Mast MD PhD [address] [place] [phone] 08/09/2025 1:00 PM EST Office Visit [facility]monary Critical [place] [address] [place] [address] [address] [place] [address] Ramon Nixon MD 136 [facility] [address] 302 [place] [phone] Cristobal Ksenia [place], RT 05/04/2026 1:45 PM EDT Office Visit Stroke 800 [facility] [place] [address] Kristine Kelly MD PhD 800 [place] [address] 05/09/2026 1:00 PM EDT Follow Up Cardiovascular Medicine at 175 [facility] [place] [address] iMke Hilario MD 175 [facility] [address] 2 [place] [address] documented as of this encounter Procedures Procedure [...] MRI Result Scan (05/12/2020 11:48 AM EDT) [facility] Provider IMG SCAN REPORTS Final Resul t * MRI Result Scan (04/12/2020 12:01 PM EDT) Historical Provider IMG SCAN REPORTS Final Resul t * MRI Result Scan (04/12/2020 11:55 AM EDT) Result [facility] Historical Provider IMG SCAN REPORTS Final Resul t * MRI Result Scan (04/08/2020 12:04 PM EDT) Result [facility] Provider IMG SCAN REPORTS Final Resul t * CT Result Scan (02/25/2020 12:11 PM EDT) Historical Provider IMG SCAN REPORTS Final Resul t * MRI Result Scan (02/01/2020 12:16 PM EDT) Historical Provider IMG SCAN REPORTS Final Resul t * CT Result Scan (12/25/2018 12:21 PM EDT) [facility] Provider IMG SCAN REPORTS Final Resul t * CT Result Scan (08/25/2015 12:26 PM EST) Historical Provider IMG SCAN REPORTS Final Resul t * CT Result Scan (09/28/2012 12:30 PM EST) Historical Provider IMG SCAN REPORTS Final Resul t * CT Result Scan (09/07/2012 12:34 PM EST) [facility] Provider IMG SCAN REPORTS Final Resul t * CT Result Scan (02/13/2012 12:38 PM EDT) Result [facility] Provider IMG SCAN REPORTS Final Resul t * CT Result Scan (12/17/2010 1:03 PM EDT) Result [facility] Provider IMG SCAN REPORTS Final Resul t * CT Result Scan (12/17/2010 1:00 PM EDT) Result [facility] Provider IMG SCAN REPORTS Final Resul t * CT Result Scan (12/17/2010 12:56 PM EDT) Result [facility] Provider IMG SCAN REPORTS Final Resul t * CT Result Scan (12/17/2010 12:52 PM EDT) Result [facility] Provider IMG SCAN REPORTS Final Resul t * CT Result Scan (12/17/2010 12:46 PM EDT) Result [facility] Provider IMG SCAN REPORTS Final Resul t * CT Result Scan (12/17/2010 12:41 PM EDT) Result [facility] Provider IMG SCAN REPORTS Final Resul t documented in this encounter Visit Diagnoses Not on filedocumented in this encounter Care Teams Floral Designer Salesperson Relationship Specialty Start Date End Date Sal Jose MD [address] [place] [phone] PCP - General Family Medicine 10/16/23 documented as of this encounter
--- OUTSIDE RECORDS SUMMARY | 2025-05-26 11:26 | XMS_ITS | Encounter Summary ---
Author Organization [facility] and [facility] Address [address] [place] [phone] Care Team Providers Care Farm General Manager Name Role Phone Sal Jose MD Primary Care Provider [phone] Encounter Details Date Type Department Care Team (Late Contact Info) Description 10/27/2023 Scanned Document CARE CENTER SCHEDULING 25 [place], [place] [phone] Provider, Historical . Social History Tobacco Use [...] at 800 [facility] 800 [facility] [place] [address] Virgie Mast MD PhD 800 [place] [phone] 08/09/2025 1:00 PM EST Office Visit Pulmonary Critical [place] 136 [facility] [address] [place], [place] [address] Ramon Nixon MD [address] [place] [address] 302 [place] [address] Ksenia Jain, RT 05/04/2026 1:45 PM EDT Office Visit Stroke 800 [facility] [place] [address] Kristine Kelly MD PhD 800 [place] [phone] 05/09/2026 1:00 PM EDT Follow Up Cardiovascular Medicine at 175 [facility] 175 [facility] THIRD [place]LOOR [place], [place] [address] Mike Hilario MD 175 [facility] 2 [place] [address] documented as of this encounter Visit Diagnoses Not on filedocumented in this encounter Care Teams Farm General Manager Relationship Specialty Start Date End Date Sal Jose MD 1033 [facility] [address] [place] [phone] PCP - General Family Medicine 10/16/23 documented as of this encounter
--- OUTSIDE RECORDS SUMMARY | 2025-05-26 11:26 | XMS_ITS | Encounter Summary ---
Author Organization [facility] and [facility] Address [address] [place] [phone] Care Team Providers Care Retail Merchandising Coordinator Name Role Phone Sal Jose MD Primary Care Provider Reason for Visit * Reason Onset Date Comments Holter/Event Monitor 11/13/2023 Trying to E nroll Pt for MCT monitor Encounter Details Date Type Department Care Team (Late st Contact Info) Description 11/13/2023 Telephone [facility] St[facility] 800 [place], [place] [address] Kristine Kelly MD PhD 800 [place] [phone] Holter/Event Monitor (Trying to Enroll Pt for [...] Care Team (Late st Contact Info) Description 06/22/2025 2:00 PM EST Office Visit [facility] Ep[facility] Seizures at 800 [facility] 800 [facility] [place] [address] Virgie Mast MD PhD 800 [place] [phone] 08/09/2025 1:00 PM EST Office Visit [place]monary Critical [place] [address] 9[address] Ramon Nixon MD [address] [place] [address] [place] [address] Ksenia Jain Carly, RT 05/04/2026 1:45 PM EDT Office Visit Stroke 800 [facility] [place] [address] Kristine Kelly MD PhD 800 [place] [phone] 05/09/2026 1:00 PM EDT Follow Up Cardiovascular Medicine at 175 [facility] 175 [facility] THIRD FLOOR [place], [place] [address] Mike Hilario MD 175 [facility] 2 [place] [address] documented as of this encounter Visit Diagnoses Not on filedocumented in this encounter Care Teams Retail Merchandising Coordinator Relationship Specialty Start Date End Date Sal Jose MD 1033 [facility] [address] [place] [phone] PCP - General Family Medicine 10/16/23 documented as of this encounter
--- OUTSIDE RECORDS SUMMARY | 2025-05-26 11:26 | XMS_ITS | Encounter Summary ---
Author Organization [facility] and [facility] Address [address] [place] [phone] Care Team Providers Care Box Coverer Hand Name Role Phone Sal Jose MD Primary Care Provider Encounter Details Date Type Department Care Team (Late Contact Info) Description 10/28/2023 Scanned Document [facility] at [address] [place] [phone] Joao Loredo MD [address] [place] [phone] Social History Tobacco Use Types Packs/Day Years [...] Office Visit [facility] at [address] [place] [phone] Virgie Mast MD PhD [address] [place] [phone] 08/09/2025 1:00 PM EST Office Visit [place] [address] [place] [address] [address] [place] [address] Ramon Nixon MD 136 [facility] [address] 302 [place] [phone] Ksenia Jain, RT 05/04/2026 1:45 PM EDT Office Visit Stroke 800 [facility] [place] [address] Kristine Kelly MD PhD 800 [place] [address] 05/09/2026 1:00 PM EDT Follow Up Cardiovascular Medicine at 175 [facility] 175 [facility] [place] [address] Mike Hilario MD 175 [facility] [address] 2 [place] [address] documented as of this encounter Procedures Procedure [...] CT Result Scan (02/15/2022 11:09 AM EDT) us Historical Provider IMG SCAN [...] CT Result Scan (02/06/2022 11:26 AM EDT) Result [facility] Provider IMG SCAN REPORTS Final Resul t documented in this encounter Visit Diagnoses Not on filedocumented in this encounter Care Teams Box Coverer Hand Relationship Specialty Start Date End Date Sal Jose MD 1033 [facility] [address] [place] [phone] PCP - General Family Medicine 10/16/23 documented as of this encounter
--- OUTSIDE RECORDS SUMMARY | 2025-05-26 11:26 | XMS_ITS | Encounter Summary ---
Author Organization [facility] Address Unknown Care Team Providers Care Event Operations Manager Name Role Phone Sal Jose MD Primary Care Provider [phone] Encounter Details Date Type Department Care Team (Late st Contact Info) Description 08/27/2023 Scanned Document [facility]monary Critical [place] 136 [facility] 302 [place], [place] [address] External, Provider Social History Tobacco Use Types [...] Visit [facility] at 800 [facility] 800 [facility] [place] [address] Virgie Mast MD PhD 800 [place] [phone] 08/09/2025 1:00 PM EST Office Visit [facility]monary Critical [place] 136 [facility] 302 [place], [place] [address] Ramon Nixon MD 136 [facility] 302 [place] [phone] Ksenia Jain, RT 05/04/2026 1:45 PM EDT Office Visit Stroke 800 [facility] [place] [address] Kristine Kelly MD PhD 800 [facility] [place] [address] 05/09/2026 1:00 PM EDT Follow Up Cardiovascular Medicine at 175 [facility] 175 [facility] THIRD FLOOR [place], [place] [address] Mike Hilario MD 175 [facility] [address] 2 [place] [phone] documented as of this encounter Procedures Procedure Name Priority Date/Time Associated Diagnosis Comments CARDIAC ECHO RESULT SCAN Routine 08/27/2023 documented in this encounter Results * Cardiac Echo Result Scan (08/27/2023) Provider External CV CARDIAC REPORT (CVR) Final Result documented in this encounter Visit Diagnoses Not on filedocumented in this encounter Care Teams Event Operations Manager Relationship Specialty Start Date End Date Sal Jose MD [address] [phone] PCP - General Family Medicine 10/16/23 documented as of this encounter
--- OUTSIDE RECORDS SUMMARY | 2025-05-26 11:26 | XMS_ITS | Encounter Summary ---
Author Organization [facility] and [facility] Address [address] [place] [phone] Care Team Providers Care Mh Teacher Name Role Phone Sal Jose MD Primary Care Provider [phone] Encounter Details Date Type Department Care Team (Late Contact Info) Description 10/28/2023 Scanned Document [facility] at [address] [place] [address] Joao Loredo MD [address] [place] [phone] Social History Tobacco Use Types Packs/Day Years [...] Office Visit [facility] at [address] [place] [phone] Virgie Mast MD PhD [address] [place] [phone] 08/09/2025 1:00 PM EST Office Visit [facility] Critical [place] [address] [place] [address] [address] [place] [address] Ramon Nixon MD 136 [facility] [address] 302 [place] [address] Ksenia Jain, RT 05/04/2026 1:45 PM EDT Office Visit Stroke 800 [facility] [place] [address] Kristine Kelly MD PhD 800 [place] [phone] 05/09/2026 1:00 PM EDT Follow Up Cardiovascular Medicine at 175 [facility] 175 [facility] THIRD [place], [place] [address] Mike Hilario MD 175 [facility] [address] 2 [place] [phone] documented as of this encounter Visit Diagnoses Not on filedocumented in this encounter Care Teams Mh Teacher Relationship Specialty Start Date End Date Sal Jose MD [address] [phone] PCP - General Family Medicine 10/16/23 documented as of this encounter
--- OUTSIDE RECORDS SUMMARY | 2025-05-26 11:26 | XMS_ITS | Encounter Summary ---
Author Organization [facility] Address [address] [place] [address] Care Team Providers Care School Bus Attendant Name Role Phone Sal Jose MD Primary Care Provider [phone] Encounter Details Date Type Department Care Team (Late st Contact Info) Description 08/14/2023 Transcribed Orders EXTERNAL REFERRAL SOURCE [address] [place] [address] Referral, Self Social History Tobacco Use Types [...] Visit [facility] 800 [facility] 800 [facility] [place] [address] Virgie Mast MD PhD 800 [place] [phone] 08/09/2025 1:00 PM EST Office Visit [place] 136 [facility] 302 [place], [place] [address] Ramon Nixon MD [address] [place] [address] 302 [place] [phone] Ksenia Jain, RT 05/04/2026 1:45 PM EDT Office Visit Stroke 800 [facility] Lower [place], [place] [address] Kristine Kelly MD PhD 800 [place] [phone] 05/09/2026 1:00 PM EDT Follow Up Cardiovascular Medicine at 175 [facility] 175 [facility] THIRD FLOOR [place], [place] [address] Mike Hilario MD 175 [facility] [address] 2 [place] [phone] documented as of this encounter Visit Diagnoses Not on filedocumented in this encounter Care Teams School Bus Attendant Relationship Specialty Start Date End Date Sal Jose MD [address] [phone] PCP - General Family Medicine 10/16/23 documented as of this encounter
--- OUTSIDE RECORDS SUMMARY | 2025-05-26 11:26 | XMS_ITS | Encounter Summary ---
Author Organization [facility] and [facility] Address [address] [place] [address] Care Team Providers Care Animal Assisted Therapist Name Role Phone Sal Jose MD Primary Care Provider Encounter Details Date Type Department Care Team (Late st Contact Info) Description 10/17/2023 Scanned Document [facility] Stroke 800 [place], [place] [address] Kristine Kelly MD PhD [address] [place] [phone] Social History Tobacco Use Types Packs/Day [...] [facility] 800 [place], [place] [address] Virgie Mast MD PhD 800 [place] [phone] 08/09/2025 1:00 PM EST Office Visit [place] 136 [facility] [address] [place] [address] Ramon Nixon MD 136 [facility] 302 [place] [address] Ksenia Jain, RT 05/04/2026 1:45 PM EDT Office Visit Stroke 800 [facility] [place] [address] Kristine Kelly MD PhD 800 [place] [address] 05/09/2026 1:00 PM EDT Follow Up Cardiovascular Medicine at 175 [facility] 175 [facility] [place] [address] Mike Hilario MD 175 [facility] [address] 2 [place] [address] documented as of this encounter Visit Diagnoses Not on filedocumented in this encounter Care Teams Animal Assisted Therapist Relationship Specialty Start Date End Date Sal Jose MD [address] [phone] PCP - General Family Medicine 10/16/23 documented as of this encounter
--- OUTSIDE RECORDS SUMMARY | 2025-05-26 11:26 | XMS_ITS | Encounter Summary ---
Author Organization [facility] and [facility] Address [address] [place] [address] Care Team Providers Care Admission Nurse Name Role Phone Sal Jose MD Primary Care Provider Encounter Details Date Type Department Care Team (Late st Contact Info) Description 08/13/2023 Scanned Document EXTERNAL REFERRAL SOURCE 20 [place] [address] External, Provider Social History Tobacco Use Types [...] [facility] 800 [facility] 800 [facility] [place] [address] Virgie Mast MD PhD 800 [place] [phone] 08/09/2025 1:00 PM EST Office Visit [place]monary Critical [place] 136 [facility] 302 [place], [place] [address] Ramon Nixon MD [address] [place] [address] 302 [place] [phone] Ksenia Jain, RT 05/04/2026 1:45 PM EDT Office Visit Stroke 800 [facility] Lower [place], [place] [address] Kristine Kelly MD PhD 800 [place] [phone] 05/09/2026 1:00 PM EDT Follow Up Cardiovascular Medicine at 175 [facility] 175 [facility] THIRD FLOOR [place], [place] [address] Mike Hilario MD 175 [facility] [address] 2 [place] [phone] documented as of this encounter Visit Diagnoses Not on filedocumented in this encounter Care Teams Admission Nurse Relationship Specialty Start Date End Date Sal Jose MD [address] [phone] PCP - General Family Medicine 10/16/23 documented as of this encounter
--- OUTSIDE RECORDS SUMMARY | 2025-05-26 11:28 | XMS_ITS | Encounter Summary ---
Author Organization [facility] Address Unknown Care Team Providers Care Copy Editor Name Role Phone Sal Jose MD Primary Care Provider Encounter Details Date Type Department Care Team (Late st Contact Info) Description 11/19/2022 Scanned Document [facility]monary Critical [place] 136 [facility] 302 [place], [place] [address] External, Provider Social History Tobacco Use Types [...] Visit [facility] at 800 [facility] 800 [facility] [place] [address] Virgie Mast MD PhD 800 [place] [address] 08/09/2025 1:00 PM EST Office Visit [place] Critical [place] 136 [facility] 302 [place], [place] [address] Ramon Nixon MD 136 [facility] 302 [place] [phone] Ksenia Jain, RT 05/04/2026 1:45 PM EDT Office Visit Stroke 800 [facility] [place] [address] Kristine Kelly MD PhD 800 [place] [address] 05/09/2026 1:00 PM EDT Follow Up Cardiovascular Medicine at 175 [facility] 175 [facility] THIRD FLO[place], [place] [address] Mike Hilario MD 175 [facility] [address] 2 [place] [phone] documented as of this encounter Visit Diagnoses Not on filedocumented in this encounter Care Teams Copy Editor Relationship Specialty Start Date End Date Sal Jose MD [address] [phone] PCP - General Family Medicine 10/16/23 documented as of this encounter
--- OUTSIDE RECORDS SUMMARY | 2025-05-26 11:28 | XMS_ITS | Clinical Summary ---
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 01/31/2022 Rheumatoid arthritis involving multiple sites (C MS/HCC) 10/20/2019 Stage 2 chronic kidney disease 02/17/2019 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) Migraine without aura 04/09/2013 Pure hypercholesterolemia 04/09/2013 Raynaud's disease 08/26/2012 Interstitial lung disease (CMS/HCC) 08/13/2012 Inflammatory arthritis 06/19/2012 Pulmonary embolism 06/05/2012 Overview (07/29/2024): 1990- in [place] Primary hypertension 02/13/2012 Hypothyroidism 02/04/2012 Overview (07/29/2024): 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 Encounters Date Type Department Care Team Description 02/24/2025 12:00 PM EDT Office Visit [facility] DENTAL [address] [place] [address] Hanane Mason Stage 2 grade B generalized periodontitis per AAP/EFP 2017 classification (Primary Dx); Dental calculus; Encounter for dental examination from Last 3 Months Family History Medical [...] ESTABLISHED PATIENT Routine 02/24/2025 12:00 PM EDT INTRAORAL - COMPLETE SERIES OF RADIOGRAPHIC IMAGES Routine 08/26/2024 9:40 AM EST from Last 3 Months or Most Recently Relevant to Health Maintenance [place] [address] [address] HSN FULL MEDICARE Member Subscriber Plan / Payer ([facility]06[facility] Name:Bernadette Mercedes Member ID:[id number] Relation to Subscriber:Self Name:Bernadette Mercedes Subscriber ID:[id number] Payer ID:STATE Group ID:Not on file Type:Medicare Address: [place] [address] [place] [phone] N FULL Member Subscriber Plan / Payer ([facility] 07/04/2024-) Name:Bernadette Mercedes Relation to Subscriber:Self Name:Bernadette Mercedes Payer ID:Not on file Group ID:Not on file Type:Not on file Address: [address] [place] [phone] MEDICARE Member Subscriber Plan / Payer ([facility] 12/06/2024-) Name:Bernadette Mercedes Member ID:[id number] Relation to Subscriber:Self Name:Bernadette Mercedes Subscriber ID:[id number] Payer ID:STATE Group ID:Not on file Type:Medicare Address: [place] [address] [place] [phone] DENTAL - HSN FULL (MEDICAID) Care Teams Radiator Specialist Relationship Specialty Start Date End Date Cordell Saba Health Navigator 08/12/24 CASSIDY DE LA FUENTE NPI ID: [id number] Address: [address] [place] [phone] Primary Care Physician [id number] Primary Care Provider 08/12/18
--- OUTSIDE RECORDS SUMMARY | 2025-05-26 11:28 | XMS_ITS | Encounter Summary ---
Author Organization [facility] and [facility] Address [address] [place] [phone] Care Team Providers Care Paper Cutting Machine Operator Name Role Phone Sal Jose MD Primary Care Provider [phone] Encounter Details Date Type Department Care Team (Late Contact Info) Description 08/31/2024 Transcribed Orders [facility]ens [address] [place], [place] [address] System, Provider Not In CRST syndrome (HC [...] Seizures at 800 [facility] 800 [place], [place] [address] Virgie Mast MD PhD [address] [place] [phone] 08/09/2025 1:00 PM EST Office Visit [place]monary Critical [place] 136 [facility] [address] [place] [address] Ramon Nixon MD 136 [facility] 302 [place] [phone] Ksenia Jain, RT 05/04/2026 1:45 PM EDT Office Visit Stroke 800 [facility] [place] [address] Kristine Kelly MD PhD 800 [place] [address] 05/09/2026 1:00 PM EDT Follow Up Cardiovascular Medicine at 175 [facility] 175 [facility] [place] [address] Mike Hilario MD 175 [facility] [address] 2 [place] [address] Scheduled Orders Name Type Priority Associated Diagnoses [...] Diagnoses Diagnosis 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
--- OUTSIDE RECORDS SUMMARY | 2025-05-26 11:28 | XMS_ITS | Encounter Summary ---
Author Organization [facility] and [facility] Address [address] [place] [address] Care Team Providers Care Sessions Clerk Name Role Phone Sal Jose MD Primary Care Provider [phone] Encounter Details Date Type Department Care Team (Late Contact Info) Description 08/09/2014 Abstract [facility]ology at 175 [facility] 175 [place] [address] Emerita Beth MD 35 [place] [phone] Social History Tobacco Use Types Packs/Day Years [...] Visit [facility] at 800 [facility] 800 [facility] [place], [place] [address] Virgie Mast MD PhD 800 [place] [phone] 08/09/2025 1:00 PM EST Office Visit [place] 136 [facility] [address] [place], [place] [address] Ramon Nixon MD 136 [facility] 302 [place] [address] Ksenia Jain, RT 05/04/2026 1:45 PM EDT Office Visit Stroke 800 [facility] [place] [address] Kristine Kelly MD PhD 800 [place] [address] 05/09/2026 1:00 PM EDT Follow Up Cardiovascular Medicine at 175 [facility] 175 [facility] THIRD FLOOR [place], [place] [address] Mike Hilario MD 175 [facility] 2 [place] [address] documented as of this encounter Visit Diagnoses Not on filedocumented in this encounter Care Teams Sessions Clerk Relationship Specialty Start Date End Date Sal Jose MD 1033 [facility] [address] [place] [phone] PCP - General Family Medicine 10/16/23 documented as of this encounter
--- OUTSIDE RECORDS SUMMARY | 2025-05-26 11:28 | XMS_ITS | Encounter Summary ---
Author Organization [facility] Address Unknown Care Team Providers Care Cotton Feeder Name Role Phone Sal Jose MD Primary Care Provider Encounter Details Date Type Department Care Team (Late st Contact Info) Description 11/27/2021 Scanned Document Pulmonary Critical [place] 136 [facility] 302 [place] [address] Gaviota Rivera, YOSI Social History Tobacco Use Types Packs/Day Years [...] 800 [facility] [place] [address] Virgie Mast MD PhD 800 [place] [phone] 08/09/2025 1:00 PM EST Office Visit Pulmonary Critical [place] 136 [facility] 302 [place], [place] [address] Ramon Nixon MD 136 [facility] 302 [place] [phone] Ksenia Jain, RT 05/04/2026 1:45 PM EDT Office Visit Stroke 800 [facility] [place] [address] Kristine Kelly MD PhD 800 [place] [phone] 05/09/2026 1:00 PM EDT Follow Up Cardiovascular Medicine at 175 [facility] 175 [facility] [place] [address] Mike Hilario MD 175 [facility] [address] 2 [place] [address] documented as of this encounter Visit Diagnoses Not on filedocumented in this encounter Care Teams Cotton Feeder Relationship Specialty Start Date End Date Sal Jose MD [address] [phone] PCP - General Family Medicine 10/16/23 documented as of this encounter
--- OUTSIDE RECORDS SUMMARY | 2025-05-26 11:28 | XMS_ITS | Encounter Summary ---
Author Organization [facility] Address Unknown Care Team Providers Care Hydraulic Pile Hammer Operator Name Role Phone Sal Jose MD Primary Care Provider [phone] Encounter Details Date Type Department Care Team (Late st Contact Info) Description 05/11/2024 Scanned Document [place]monary Critical [place] 136 [facility] [address] [place], [place] [address] Ramon Nixon MD 136 [facility] 302 [place] [phone] Social History Tobacco Use Types Packs/Day Years [...] 800 [facility] 800 [place] [address] Virgie Mast MD PhD [address] [place], [place] [address], [place] [phone] 08/09/2025 1:00 PM EST Office Visit [place]monary Critical [place] 136 [facility] [address] [place] [address] Ramon Nixon MD 136 [facility] 302 [place] [phone] Cristobal Ksenia [place], RT 05/04/2026 1:45 PM EDT Office Visit Stroke 800 [facility] [place] [address] Kristine Kelly MD PhD 800 [place] [phone] 05/09/2026 1:00 PM EDT Follow Up Cardiovascular Medicine at 175 [facility] 175 [facility] [place] [address] Mike Hilario MD 175 [facility] [address] 2 [place] [phone] documented as of this encounter Visit Diagnoses Not on filedocumented in this encounter Additional Health Concerns Assessment Noted Time PHQ-9 Depression Total Score: 0 04/07/20 2:31 PM EDT documented as of this encounter Care Teams Hydraulic Pile Hammer Operator Relationship Specialty Start Date End Date Sal Jose MD [facility] [address] [address] PCP - General Family Medicine 10/16/23 documented as of this encounter
--- OUTSIDE RECORDS SUMMARY | 2025-05-26 11:28 | XMS_ITS | Clinical Summary ---
Author Organization [facility] Address [address] [place] [address] Phone Care Team Providers Care Fire Code Inspector Name Role Phone Sal Jose MD Primary Care Provider [phone] Allergies Active Allergy Reactions Criticality Noted Date [...] seizures, not intractable, without status epilepticus (HC CODE) Take 1 tablet (750 mg total) by mouth 2 (two) times daily. 180 tablet 3 4 07/16/20 25 Active budesonide-formo teroL (SYMBICORT) 160-4.5 mcg/actuation HFA aerosol inhaler Inhale 2 puffs into the lungs 2 (two) times daily. 10.2 g 11 5 Active isosorbide mononitrate (IMDUR) 30 mg 24 hr extended release tablet Take 1 tablet (30 mg total) by mouth. 5 Active metoprolol succinate XL (TOPROL-XL) 25 mg 24 hr tablet TAKE 1 TABLET BY [...] Encounters Date Type Department Care Team Description 05/04/2025 1:00 PM EDT Follow Up Cardiovascular Medicine at [address] [place] [address] Mike Hilario MD NSVT (nonsustained ventricular tachycardia) (HC Code) (HC CODE) (Primary Dx); Chronic ischemic right MCA stroke; Aneurysm of middle cerebral artery; Scleroderma (HC CODE); ILD (interstitial lung disease) (HC Code) (HC CODE); History of pulmonary embolism 04/28/2025 1:45 PM EDT Office Visit [facility] St[facility] 800 [place] [address] Kristine Kelly MD PhD Chronic ischemic right MCA stroke (Primary Dx); Occlusion of right middle cerebral artery; Carotid atherosclerosis, bilateral; NSVT (nonsustained ventricular tachycardia) (HC Code) ; Internal carotid artery stent present; Obstructive sleep apnea of adult; Impaired vision in both eyes; Vitamin B 12 deficiency; Aneurysm of middle cerebral artery (HC CODE) 03/08/2025 12:00 PM EDT Follow Up Pulmonary Critical [place] [address] [place] [address] Ramon Nixon MD Mild persistent asthma with [...] Answer Date Recorded PHQ-2 Total Score 0 05/04/2025 Interpersonal Safety Answer Date Record ed Is there anyone in your life that is hurting or threatening you in anyway? Not on file 05/04/2025 Physical Indicators of Abuse No evidence of phys ical abuse 05/04/2025 Comments Unknown Sex and Gender Information Value Date Recorded Sex Assigned at Not on file Legal Sex Female 7:18 AM EST Gender Identity Not on file Sexual Orientation Not on file Last Filed Vital Signs Vital Sign Reading Time Taken Comments Blood Pressure 110/64 05/04/2025 12:57 PM EDT Pulse 67 05/04/2025 12:57 PM EDT Temperature 36.3 C (97.4 F) 04/28/2025 1:42 PM EDT Respiratory Rate 16 03/08/2025 12:18 PM EDT Oxygen Saturation 100% 05/04/2025 12:57 PM EDT Inhaled Oxygen Concentration - - Weight 102.5 kg (226 lb) 05/04/2025 12:57 PM EDT Height 172.7 cm (5' 8 ) 05/04/2025 12:57 PM EDT Body Mass Index 34.36 05/04/2025 12:57 PM EDT Plan of Treatment Upcoming Encounters Date Type Department Care Team (Late st Contact Info) Description 06/22/2025 2:00 PM EST Office Visit [facility] Ep[facility] Seizures at 800 [facility] 800 [place] [address] Virgie Mast MD PhD 800 [place] [phone] 08/09/2025 1:00 PM EST Office Visit Pulmonary Critical [place] 136 [facility] [address] [place], [place] [address] Ramon Nixon MD 136 [facility] 302 [place] [phone] Ksenia Jain, 05/04/2026 1:45 PM EDT Office Visit [facility] Stroke 800 [place] [address] Kristine Kelly MD PhD 800 [place] [address] 05/09/2026 1:00 PM EDT Follow Up Cardiovascular Medicine at 175 [facility] 175 [facility] THIRD FLOOR [place], [place] [address] Mike Hilario MD 175 [facility] [address] 2 [place] [phone] Health Maintenance Due Date Last Done Comments HIV screening 1974 Hepatitis C screening 11/22/1979 Lipid disorder screening 2001 Colon cancer screening, Colonoscopy 2006 RSV Immunization (1 - Risk 50-74 years 1-dose series) 11/22/2011 Cervical cancer screening 02/25/2019 02/25/2014 Pneumococcal Vaccine (50+ years) (3 of 3 - PPSV23, PCV20 or PCV21) 04/16/2023 04/16/2018, 06/09/2015 Breast cancer screening 09/11/2024 09/11/19, 09/11/2022, 03/02/2019, Additional history exists Influenza vaccine 03/04/2025 05/26/2024, , 04/29/2020, Additional history exists Covid-19 vaccine series ( - 2024- season) 2025 12/06/2021, 11/03/2020, 10/13/2020 Diabetes screening 07/23/2027 07/23/2024, 1 , 04/15/2024, [...] Procedure Name Priority Date/Time Associated Diagnosis Comments EKG Routine 05/04/2025 12:54 PM EDT NSVT (nonsustained ventricular tachycardia) (HC Code) (HC CODE) 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 Scleroderma (HC CODE) ILD (interstitial lung disease) (HC Code) (HC CODE) History of pulmonary embolism COMPREHENSIVE METABOLIC PANEL Routine 07/23/2024 1:13 PM EST CRST syndrome (HC Code) from Last 3 Months or Most Recently Relevant to Health Maintenance Results * EKG (Clinic Performed) (05/04/2025 12:54 PM EDT) Heart Rate 67 bpm SRC EKG QRS Interval 105 ms SRC EKG QT Interval 422 ms SRC EKG QTC Interval 446 ms SRC EKG P [place] 65 deg SRC EKG QRS [place] 25 deg SRC EKG T Wave [place] 41 deg SRC EKG P-R Interval 162 msec SRC EKG SEVERITY Borderline ECG severity SRC EKG Comment::Sinus rhythm::Minim al ST elevation, anterior leads:Electronically Signed On 05-06-2025 23:35:17 EDT by Marc Joe MD OTHER / Unknown 05/04/2025 1 2:54 PM EDT us Mike Hilario MD ECG ORDERABLES Final Resul t SRC EKG * Comprehensive metabolic panel (07/23/2024 1:13 PM EST) Sodium 144 136 - 144 mmol/L 07/23/2024 3:09 PM EST [facility] DEPARTMENT OF LABORATORY MEDICINE Potassium 4.2 3.3 - 5.3 mmol/L 07/23/2024 3:09 PM EST [facility] DEPARTMENT OF LABORATORY MEDICINE Chloride 105 98 - 107 mmol/L 07/23/2024 3:09 PM EST [facility] DEPARTMENT OF LABORATORY MEDICINE CO2 26 20 - 30 mmol/L 07/23/2024 3:09 PM EST [facility] DEPARTMENT OF LABORATORY MEDICINE Anion Gap 13 7 - 17 07/23/2024 3:09 PM EST [facility] DEPARTMENT OF LABORATORY MEDICINE Glucose 89 70 - 100 mg/dL 07/23/2024 3:09 PM [facility] DEPARTMENT OF LABORATORY MEDICINE BUN 13 8 - 23 mg/dL 07/23/2024 3:09 PM [facility] DEPARTMENT OF LABORATORY MEDICINE Creatinine [...] 0.6 <=1.2 mg/dL 07/23/20 24 3:09 PM [facility] DEPARTMENT OF [...] Reference Range Not Established 07/23/2024 3:09 PM [facility] DEPARTMENT OF LABORATORY MEDICINE eGFR (Creatinine) >60 >=60 mL/min/1.73m2 07/23/2024 3:09 PM [facility] DEPARTMENT OF LABORATORY MEDICINE Comment: [facility] utilizes CKD-EPI Creatinine 2020 to report eGFR. Values < 60 mL/min/1.73 m2 may indicate CKD if present for more than three months AND creatinine is at steady state. The eGFR provides a rough estimate of kidney function. For further guidance, please refer to the CKD: Adult Manager Ct Signature pathway. Creatinine Delta 0.01 See Comment [...] LAB BLOOD ORDERABLES Evelin smith Result [facility] DEPARTMENT OF LABORATORY MEDICINE [address] [place] [id number] [phone] from Last 3 Months or Most Recently Relevant to Health Maintenance [place] [address]-[place] [address] [id number] MEDICAID [place] [address] [address] [id number] MEDICAID MEDIC[place] 1[place] [address] [facility] 1-D Jerry DAVIS [place] [address] [id number] MEDICAID MEDICARE 1-D Jerry DAVIS [place] [address] [facility] Care Teams Fire Code Inspector Relationship Specialty Start Date End Date Sal Jose MD 1033 [facility] [address] [place] [phone] PCP - General Family Medicine 10/16/23
--- OUTSIDE RECORDS SUMMARY | 2025-05-26 11:28 | XMS_ITS | Encounter Summary ---
Author Organization [facility] Address [address] [place] [phone] Care Team Providers Care Brine Tank Operator Name Role Phone Sal Jose MD Primary Care Provider [phone] Encounter Details Date Type Department Care Team (Late Contact Info) Description 07/21/2024 Transcribed Orders [facility] [address] [place], [place] [address] System, Provider Not In CRST syndrome (HC [...] [facility] at [address] [facility] 800 [place], [place] [address] Virgie Mast MD PhD [address] [place] [phone] 08/09/2025 1:00 PM EST Office Visit Pulmonary Critical [place] 136 [facility] [address] [place], [place] [address] Ramon Nixon MD 136 [facility] 302 [place] [phone] Ksenia Jain, RT 05/04/2026 1:45 PM EDT Office Visit Stroke [address] [facility] Lower [place], [place] [address] Kristine Kelly MD PhD 800 [place] [phone] 05/09/2026 1:00 PM EDT Follow Up Cardiovascular Medicine at 175 [facility] 175 [facility] THIRD [place] [place], [place] [address] Mike Hilario MD 175 [facility] [address] 2 [place] [phone] documented as of this encounter Results * Sedimentation rate (ESR) (07/23/2024 1:13 PM EST) Sedimentation Rate (ESR) 12 0 - 20 mm/hr 07/23/2024 2:55 PM EST [facility] DEPARTMENT OF LABORATORY MEDICINE Blood Venipuncture / Unknown 07/23/2024 1:13 PM EST 07/23/2024 2:24 PM EST us Provider Not In System LAB BLOOD ORDERABLES Evelin smith Result [facility] DEPARTMENT OF LABORATORY MEDICINE [address] [place] [address] documented in this encounter Visit Diagnoses Diagnosis 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
--- OUTSIDE RECORDS SUMMARY | 2025-05-26 11:28 | XMS_ITS | Encounter Summary ---
Author Organization [facility] Address Unknown Care Team Providers Care Transportation Lead Name Role Phone Sal Jose MD Primary Care Provider [phone] Encounter Details Date Type Department Care Team (Late st Contact Info) Description 08/13/2023 Scanned Document Pulmonary Critical [place] 136 [facility] 302 [place], [place] [address] External, Provider Social History Tobacco Use Types [...] [facility] 800 [facility] [place] [address] Virgie Mast MD PhD 800 [place] [phone] 08/09/2025 1:00 PM EST Office Visit [place] 136 [facility] 302 [place], [place] [address] Ramon Nixon MD 136 [facility] 302 [place] [phone] Ksenia Jain, RT 05/04/2026 1:45 PM EDT Office Visit Stroke 800 [facility] [place] [address] Kristine Kelly MD PhD 800 [place] [phone] 05/09/2026 1:00 PM EDT Follow Up Cardiovascular Medicine at 175 [facility] 175 [facility] THIRD [place], [place] [address] Mike Hilario MD 175 [facility] [address] [place] [phone] documented as of this encounter Visit Diagnoses Not on filedocumented in this encounter Care Teams Transportation Lead Relationship Specialty Start Date End Date Sal Jose MD [address] [phone] PCP - General Family Medicine 10/16/23 documented as of this encounter
--- OUTSIDE RECORDS SUMMARY | 2025-05-26 11:28 | XMS_ITS | Encounter Summary ---
Author Organization [facility] Address Unknown Care Team Providers Care Hand Winder Name Role Phone Sal Jose MD Primary Care Provider Reason for Referral * General (Routine) - New Request Specialty Diagnoses / Procedures Referred By Contac t Referred To Contact Pulmonary Disease Procedures Pulmonary Function Test ([facility]) Ramon Nixon MD [address] [place] [address] 302 [place] [address] Phone: tel: fax: Referral ID Status Reason Start Date Expiration Date V isits Requested Visits Authorized [id number] New Request 08/31/2024 08/31/2025 1 1 Encounter Details Date Type Department Care Team (Late st Contact Info) Description 08/31/2024 Scanned Document Pulmonary Critical [place] 136 [facility] 302 [place], [place] [phone] Ramon Nixon MD [address] [place] [address] 302 [place] [address] Social History Tobacco Use Types [...] Office Visit Epilepsy & Seizures at 800 [facility] [address] [place] [address] Virgie Mast MD PhD 800 [place] [phone] 08/09/2025 1:00 PM EST Office Visit [place]monary Critical [place] 136 [facility] [address] [place] [address] Ramon Nixon MD 136 [facility] 302 [place] [address] Ksenia Jain, RT 05/04/2026 1:45 PM EDT Office Visit Stroke 800 [facility] [place] [address] Kristine Kelly MD PhD 800 [place] [phone] 05/09/2026 1:00 PM EDT Follow Up Cardiovascular Medicine at 175 [facility] 175 [facility] [place] [address] Mike Hilario MD 175 [facility] [address] 2 [place] [phone] documented as of this encounter Procedures Procedure [...] documented as of this encounter Care Teams Hand Winder Relationship Specialty Start Date End Date Sal Jose MD [facility] [address] [phone] PCP - General Family Medicine 10/16/23 documented as of this encounter
--- OUTSIDE RECORDS SUMMARY | 2025-05-26 11:28 | XMS_ITS | Encounter Summary ---
Author Organization [facility] Address Unknown Care Team Providers Care Boilermaker Industrial Boilers Name Role Phone Sal Jose MD Primary Care Provider [phone] Encounter Details Date Type Department Care Team (Late st Contact Info) Description 11/19/2022 Scanned Document [facility]monary Critical [place] 136 [facility] 302 [place], [place] [address] External, Provider Social History Tobacco Use Types [...] Visit [facility]iz[facility] at 800 [facility] 800 [facility] [place] [address] Virgie Mast MD PhD 800 [place] [phone] 08/09/2025 1:00 PM EST Office Visit [facility]monary Critical [place] 136 [facility] 302 [place], [place] [address] Ramon Nixon MD 136 [facility] 302 [place] [phone] Ksenia Jain, RT 05/04/2026 1:45 PM EDT Office Visit Stroke 800 [facility] [place] [address] Kristine Kelly MD PhD 800 [place] [phone] 05/09/2026 1:00 PM EDT Follow Up Cardiovascular Medicine at 175 [facility] 175 [facility] THIRD FLOOR [place], [place] [address] Mike Hilario MD 175 [facility] [address] 2 [place] [phone] documented as of this encounter Visit Diagnoses Not on filedocumented in this encounter Care Teams Boilermaker Industrial Boilers Relationship Specialty Start Date End Date Sal Jose MD [address] [phone] PCP - General Family Medicine 10/16/23 documented as of this encounter
--- OUTSIDE RECORDS SUMMARY | 2025-05-26 11:28 | XMS_ITS | Encounter Summary ---
Author Organization [facility] Address [address] [address] Phone Care Team Providers Care Bread Distributor Name Role Phone Sal Jose MD Primary Care Provider [phone] Encounter Details Date Type Department Care Team (Late Contact Info) Description 05/25/2024 Scanned Document [facility] - [address] [phone] Nain Cat MD [address] [place] [phone] Social History Tobacco Use Types Packs/Day [...] Visit [facility] Ep[facility] Seiz[facility] at 800 [facility] 800 [place] [address] Virgie Mast MD PhD 800 [place] [phone] 08/09/2025 1:00 PM EST Office Visit [place]monary Critical [place] 136 [facility] [address] [place], [place] [address] Ramon Nixon MD 136 [facility] 302 [place] [phone] Ksenia Jain, RT 05/04/2026 1:45 PM EDT Office Visit Stroke 800 [place] [address] Kristine Kelly MD PhD 800 [place] [phone] 05/09/2026 1:00 PM EDT Follow Up Cardiovascular Medicine at 175 [facility] 175 [facility] THIRD [address]LOOR [place], [place] [address] Mike Hilario MD 175 [facility] 2 [place] [phone] documented as of this encounter Visit Diagnoses Not on filedocumented in this encounter Additional Health Concerns Assessment Noted Time PHQ-9 Depression Total Score: 0 04/07/20 2:31 PM EDT documented as of this encounter Care Teams Bread Distributor Relationship Specialty Start Date End Date Sal Jose MD [facility] [address] [phone] PCP - General Family Medicine 10/16/23 documented as of this encounter
--- OUTSIDE RECORDS SUMMARY | 2025-05-26 11:28 | XMS_ITS | Encounter Summary ---
Author Organization [facility] Address Unknown Care Team Providers Care Fingernail Sculpturer Name Role Phone Sal Jose MD Primary Care Provider [phone] Encounter Details Date Type Department Care Team (Late st Contact Info) Description 11/27/2021 Scanned Document [facility] [place] 136 [facility] 302 [place] [address] External, Provider Social History Tobacco Use Types [...] [facility] at 800 [facility] 800 [facility] [place] [address] Virgie Mast MD PhD 800 [place] [phone] 08/09/2025 1:00 PM EST Office Visit [facility]monary Critical [place] 136 [facility] 302 [place], [place] [address] Ramon Nixon MD 136 [facility] 302 [place] [phone] Ksenia Jain, RT 05/04/2026 1:45 PM EDT Office Visit Stroke 800 [facility] [place] [address] Kristine Kelly MD PhD 800 [place] [phone] 05/09/2026 1:00 PM EDT Follow Up Cardiovascular Medicine at 175 [facility] 175 [facility] THIRD FLOOR [place], [place] [address] Mike Hilario MD 175 [facility] [address] [place] [phone] documented as of this encounter Visit Diagnoses Not on filedocumented in this encounter Care Teams Fingernail Sculpturer Relationship Specialty Start Date End Date Sal Jose MD [address] [phone] PCP - General Family Medicine 10/16/23 documented as of this encounter
--- OUTSIDE RECORDS SUMMARY | 2025-05-26 11:29 | XMS_ITS | Encounter Summary ---
Author Organization [facility] Address Unknown Care Team Providers Care Steward/Stewardess Club Car Name Role Phone Sal Jose MD Primary Care Provider [phone] Encounter Details Date Type Department Care Team (Late st Contact Info) Description 08/13/2023 Scanned Document Pulmonary Critical [place] 136 [facility] 302 [place], [place] [address] External, Provider Social History Tobacco Use Types [...] Visit [facility] Seiz[facility] at 800 [facility] 800 [facility] [place] [address] Virgie Mast MD PhD 800 [place] [phone] 08/09/2025 1:00 PM EST Office Visit [facility]monary Critical [place] 136 [facility] 302 [place], [place] [address] Ramon Nixon MD 136 [facility] 302 [place] [phone] Ksenia Jain, RT 05/04/2026 1:45 PM EDT Office Visit Stroke 800 [facility] [place] [address] Kristine Kelly MD PhD 800 [place] [phone] 05/09/2026 1:00 PM EDT Follow Up Cardiovascular Medicine at 175 [facility] 175 [facility] THIRD FLOOR [place], [place] [address] Mike Hilario MD 175 [facility] [address] [place] [phone] documented as of this encounter Visit Diagnoses Not on filedocumented in this encounter Care Teams Steward/Stewardess [employer] Car Relationship Specialty Start Date End Date Sal Jose MD [address] [phone] PCP - General Family Medicine 10/16/23 documented as of this encounter
== END 2025-05-26 11:14 | disposition home or self-care (01) ==
LOC: HO.HSMS 09:54
PROVIDERS: PCP Family Medicine; Visit Provider Physician Assistant Medical
DX: G47.19 Other hypersomnia (principal); G47.30 Sleep apnea, unspecified; R41.89 Other symptoms and signs involving cognitive functions and awareness; R46.89 Other symptoms and signs involving appearance and behavior; G47.9 Sleep disorder, unspecified; G57.93 Unspecified mononeuropathy of bilateral lower limbs
CPT/HCPCS: 99204

== ENCOUNTER → 2025-05-26 09:53 | Outpatient (BNVA) | payer MEDICARE, MEDICAID, SELFPAY | PROVIDERS: PCP Family Medicine; Visit Provider Physician Assistant Medical | DX: G47.30 Sleep apnea, unspecified (principal); G47.19 Other hypersomnia; R41.89 Other symptoms and signs involving cognitive functions and awareness; R46.89 Other symptoms and signs involving appearance and behavior; G57.93 Unspecified mononeuropathy of bilateral lower limbs | CPT/HCPCS: 99202 ==

== ENCOUNTER 2025-05-30 11:54 | Outpatient (REF) | payer MEDICARE, MEDICAID, SELFPAY | END 2025-05-30 11:55 | disposition home or self-care (01) | LOC: HO.LNP 11:54 | PROVIDERS: PCP Family Medicine; Visit Provider Obstetrics & Gynecology | DX: N95.0 Postmenopausal bleeding (principal) | CPT/HCPCS: 87626; 88175; 99202 ==

== ENCOUNTER 2025-05-30 11:54 | Outpatient (AMB) | payer MEDICARE, MEDICAID, SELFPAY ==
[2025-05-30 12:19] VITALS: BMI 34.7
--- NOTE | 2025-05-30 12:19 | A.OFFVIS_ITS ---
Vital Signs 05/30/25 12:19 Height 5 ft 8 in Weight 228 lb BMI 34.7 Intake Visit Reasons: PMB Intake Note: pt states 3 weeks ago heavy bleeding, clots for 4-5 hours spotting for days after Thyroid removed in 30's and no menses since Last pap +20yrs normal hx per pt Filer And Sander: Filer [employer] Sander Present (Veronica) Allergies Penicillins Allergy (Severe, Verified 05/30/25 12:20) Anaphylaxis morphine Adverse Reaction (Intermediate, Verified 05/30/25 12:20) Confusion HPI Comments Details: Presenting after a an episode of vaginal bleeding 3 weeks ago. Last Co testing 20 years ago Last mammogram was 5 years ago [facility] Medical History Nonalcoholic fatty liver Migraine Hyperlipidemia CREST syndrome Chronic kidney disease Hypertension Pulmonary emboli Middle cerebral artery aneurysm Subclavian steal syndrome of right subclavian artery Chronic ischemic right MCA stroke Stroke Lung disease Surgical History S/P IVC filter H/O brain surgery Family History Maternal Grandmother FH: mental illness Brother FH: mental illness Sister FH: mental illness Father FH: mental illness Social History Housing: Apartment Alcohol intake: never Patient Tobacco Use Status: Never used Tobacco e-Cigarette/Vaping Use: Never Used Second Hand Smoke Exposure: No Substance Use Type: Other service: No Current occupational status: retired Current occupational exposures/hazards: No Cognitive needs: Yes (aphasia ) Hearing needs: No Vision needs: Yes Review of Systems Const All systems reviewed & are unremarkable except as noted in HPI and below Card Reports as per HPI Resp Reports as per HPI GI Reports as per HPI and Reports no additional complaints Reports as per HPI Physical Exam Vital Signs: BMI result Body Mass Index 34.7 Const General: cooperative, healthy appearing and comfortable Chest Chest palpation & inspection: normal inspection of the chest and normal palpation of entire chest wall Breast/axilla inspection: normal inspection of the breasts and normal inspection of the axillae Breast/axilla palpation: normal palpation of the breasts, normal palpation of the axillae and no axillary lymphadenopathy Resp Effort & Inspection: normal respiratory effort Auscultation: clear to auscultation bilaterally Percussion: percussion normal Cardio Palpation: normal PMI Rate: regular rate Rhythm: regular rhythm Heart sounds: no murmurs and no rubs Peripheral pulses: Peripheral pulses 2+ throughout GI Inspection: Yes normal to inspection Palpation (GI): Soft to palpation, nontender, no guarding, not rigid and No hepatosplenomegaly present Percussion: Yes normal to percussion Auscultation: normal bowel sounds Rectal Exam - Female: deferred General: Yes bladder normal to palpation External Female Exam: No lesion Speculum Exam - Vagina: normal appearance of the vagina, normal palpation, normal vaginal discharge and not erythematous Speculum Exam - Cervix: normal appearance of the cervix and normal palpation Bimanual exam- vagina & uterus: normal bimanual exam, normal palpation, uterine size normal, bladder normal to palpation, consistency normal and normal palpation Bimanual Exam- Adnexa, other: normal adnexae, no masses and no tenderness Assessment & Plan Assessment & Plan (1) Postmenopausal bleeding: Comment: On clopidogrel Code(s): N95.0 - Postmenopausal bleeding Category: Medical Plan: Screening mammogram ordered. Discussed with the patient the differential diagnosis of post menopausal bleeding with normal pelvic exam including but not limited to, endometrial hyperplasia, cancer, polyps and other causes; co testing done, recommended ultrasound to measure the endometrial stripe; discussed with the patient that if the endometrial thickness is 4 mm or less the negative predictive value of endometrial pathology is 99%, otherwise If endometrial thickness is more than 4 mm will proceed with endometrial sampling versus hysteroscopy D&C polypectomy depending on the ultrasound findings. Instructed the patient to schedule an ultrasound with a follow-up appointment in 2 weeks. All questions answered, the patient verbalized understanding and agreed with the plan. This note was generated with a voice recognition program. Some errors may have been overlooked during the review of this note. Sometimes these errors may affect the content or meaning of a given sentence. Orders: Orders US pelvic and transvaginal Today N95.0 - Postmenopausal bleeding Pap Smear Today N95.0 - Postmenopausal bleeding HPV High risk Today N95.0 - Postmenopausal bleeding Coding Level of Care Code New Pt Level 3 (40765) Diagnoses Postmenopausal bleeding N95.0
--- OUTSIDE RECORDS SUMMARY | 2025-05-30 15:20 | XMS_ITS | Clinical Summary ---
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 Family History Medical History Relation Name Comments [...] Vaccine (5 - Pfizer risk 2023- season) 2025 05/13/2024, 12/06/2021, 11/03/2020, Additional history [...] Procedure Name Priority Date/Time Associated Diagnosis Comments Full PROPHYLAXIS - ADULT Routine 025 12:00 PM EDT PERIODIC ORAL EVALUATION - ESTABLISHED PATIENT Routine 02/24/2025 12:00 PM EDT INTRAORAL - COMPLETE SERIES OF RADIOGRAPHIC IMAGES Routine 08/26/2024 9:40 AM EST from Last 3 Months or Most Recently Relevant to Health Maintenance [place] [id number] [facility] FULL MEDICARE HSN FULL MEDICARE 1[place] [id number] DENTAL - HSN FULL (MEDICAID) Care Teams Submarine Element Coordinator Relationship Specialty Start Date End Date [facility] 08/12/24 CASSIDY DE LA FUENTE NPI ID: [id number] Address: [address] [place] [id number] Primary Care Physician [id number] Primary Care Provider 08/12/18
--- OUTSIDE RECORDS SUMMARY | 2025-05-30 15:20 | XMS_ITS | Encounter Summary ---
Author Organization [facility] Address Unknown Care Team Providers Care Bone Grinder Name Role Phone Sal Jose MD Primary Care Provider Reason for Referral * General (Routine) - New Request Specialty Diagnoses / Procedures Referred By Contac t Referred To Contact Pulmonary Disease Procedures Pulmonary Function Test ([facility]) Ramon Nixon MD [address] [place] [address] [address] [place] [address] Phone: tel: fax: Referral ID Status Reason Start Date Expiration Date V isits Requested Visits Authorized [id number] New Request 08/31/2024 08/31/2025 1 1 Encounter Details Date Type Department Care Team (Late st Contact Info) Description 08/31/2024 Scanned Document Pulmonary Critical [place] 136 [facility] 302 [place], [place] [phone] Ramon Nixon MD [address] [place] [address] [address] [place] [address] Social History Tobacco Use Types [...] Office Visit Epilepsy & Seizures at 800 [facility] 800 [place] [address] Virgie Mast MD PhD 800 [place] [phone] 08/09/2025 1:00 PM EST Office Visit [place] Critical [place] 136 [facility] [address] [place] [address] Ramon Nixon MD 136 [facility] 302 [place] [address] Ksenia Jain, RT 05/04/2026 1:45 PM EDT Office Visit Stroke 800 [place] [address] Kristine Kelly MD PhD 800 [place] [phone] 05/09/2026 1:00 PM EDT Follow Up Cardiovascular Medicine at 175 [facility] 175 [facility] [place] [address] Mike Hilario MD 175 [facility] [address] 2 [place] [address] documented as of this encounter Procedures Procedure [...] documented as of this encounter Care Teams Bone Grinder Relationship Specialty Start Date End Date Sal Jose MD [facility] [address] [address] PCP - General Family Medicine 10/16/23 documented as of this encounter
--- OUTSIDE RECORDS SUMMARY | 2025-05-30 15:20 | XMS_ITS | Encounter Summary ---
Author Organization [facility] Address [address] [place] [phone] Care Team Providers Care Instrument Lens Grinder Name Role Phone Sal Jose MD Primary Care Provider [phone] Encounter Details Date Type Department Care Team (Late Contact Info) Description 10/28/2023 Scanned Document [facility] SCHEDULING 25 [place], [place] [address] Provider, Historical . Social History Tobacco Use [...] Office Visit Epilepsy & Seizures at [address] [facility] [address] [facility] [place] [address] Virgie Mast MD PhD 800 [place] [phone] 08/09/2025 1:00 PM EST Office Visit [place] 136 [facility] [address] [place], [place] [address] Ramon Nixon MD [address] [place] [address] 302 [place] [address] SoaresZakiKsenia, RT 05/04/2026 1:45 PM EDT Office Visit Stroke [address] [facility] [place] [address] Kristine Kelly MD PhD 800 [place] [address] 05/09/2026 1:00 PM EDT Follow Up Cardiovascular Medicine at 175 [facility] 175 [facility] THIRD FLOOR [place], [place] [address] Mike Hilario MD 175 [facility] [address] 2 [place] [address] documented as of this encounter Procedures Procedure [...] on filedocumented in this encounter Care Teams Instrument Lens Grinder Relationship Specialty Start Date End Date Sal Jose MD [facility] [address] [place] [address] PCP - General Family Medicine 10/16/23 documented as of this encounter
--- OUTSIDE RECORDS SUMMARY | 2025-05-30 15:20 | XMS_ITS | Encounter Summary ---
Author Organization [facility] Address [address] [address] Phone Care Team Providers Care Mass Spectrometry Manager Name Role Phone Sal Jose MD Primary Care Provider [phone] Encounter Details Date Type Department Care Team (Late Contact Info) Description 05/25/2024 Scanned Document [facility] - [address] 5[address] Nain Cat MD [address] [place] [phone] Social History Tobacco Use Types Packs/Day [...] [facility] 800 [facility] [place] [address] Virgie Mast MD PhD 800 [place] [phone] 08/09/2025 1:00 PM EST Office Visit [place]monary Critical [place] 136 [facility] [address] [place], [place] [address] Ramon Nixon MD 136 [facility] [place] 302 [place] [address] Ksenia Jain, RT 05/04/2026 1:45 PM EDT Office Visit Stroke 800 [facility] [place] [address] Kristine Kelly MD PhD 800 [place] [address] 05/09/2026 1:00 PM EDT Follow Up Cardiovascular Medicine at 175 [facility] 175 [facility] THIRD FLOOR [place], [place] [address] Mike Hilario MD 175 [facility] 2 [place] [address] documented as of this encounter Visit Diagnoses Not on filedocumented in this encounter Additional Health Concerns Assessment Noted Time PHQ-9 Depression Total Score: 0 04/07/20 2:31 PM EDT documented as of this encounter Care Teams Mass Spectrometry Manager Relationship Specialty Start Date End Date Sal Jose MD [facility] [address] [address] PCP - General Family Medicine 10/16/23 documented as of this encounter
--- OUTSIDE RECORDS SUMMARY | 2025-05-30 15:20 | XMS_ITS | Encounter Summary ---
Author Organization [facility] Address Unknown Care Team Providers Care Snow Maker Name Role Phone Sal Jose MD Primary Care Provider [phone] Encounter Details Date Type Department Care Team (Late st Contact Info) Description 11/27/2021 Scanned Document Pulmonary Critical [place] 136 [facility] 302 [place] [address] Gaviota Rivera, YOSI Social History Tobacco Use [...] [facility] [place] [address] Virgie Mast MD PhD 800 [place] [phone] 08/09/2025 1:00 PM EST Office Visit Pulmonary Critical [place] 136 [facility] 302 [place], [place] [address] Ramon Nixon MD 136 [facility] 302 [place] [phone] Ksenia Jain, RT 05/04/2026 1:45 PM EDT Office Visit Stroke [address] [facility] [place] [address] Kristine Kelly MD PhD 800 [place] [phone] 05/09/2026 1:00 PM EDT Follow Up Cardiovascular Medicine at 175 [facility] 175 [facility] [place] [address] Mike Hilario MD 175 [facility] [address] 2 [place] [address] documented as of this encounter Visit Diagnoses Not on filedocumented in this encounter Care Teams Snow Maker Relationship Specialty Start Date End Date Sal Jose MD [address] [phone] PCP - General Family Medicine 10/16/23 documented as of this encounter
--- OUTSIDE RECORDS SUMMARY | 2025-05-30 15:20 | XMS_ITS | Encounter Summary ---
Author Organization [facility] and [facility] Address 20 [place] [address] Care Team Providers Care Irrigation Equipment Mechanic Name Role Phone Sal Jose MD Primary Care Provider Encounter Details Date Type Department Care Team (Late st Contact Info) Description 08/14/2023 Transcribed Orders EXTERNAL REFERRAL SOURCE 20 [place] [address] Referral, Self Social History Tobacco Use Types [...] Visit [facility] Epilepsy & Seizures at 800 [facility] 800 [facility] [place] [address] Virgie Mast MD PhD 800 [place] [phone] 08/09/2025 1:00 PM EST Office Visit [place]monary Critical [place] 136 [facility] 302 [place], [place] [address] Ramon Nixon MD [address] [place] [address] 302 [place] [address] Ksenia Jain, RT 05/04/2026 1:45 PM EDT Office Visit Stroke 800 [facility] Lower [place], [place] [address] Kristine Kelly MD PhD 800 [place] [address] 05/09/2026 1:00 PM EDT Follow Up Cardiovascular Medicine at 175 [facility] 175 [facility] THIRD FLOOR [place], [place] [address] Mike Hilario MD 175 [facility] [address] 2 [place] [address] documented as of this encounter Visit Diagnoses Not on filedocumented in this encounter Care Teams Irrigation Equipment Mechanic Relationship Specialty Start Date End Date Sal Jose MD [address] [phone] PCP - General Family Medicine 10/16/23 documented as of this encounter
--- OUTSIDE RECORDS SUMMARY | 2025-05-30 15:20 | XMS_ITS | Encounter Summary ---
Author Organization [facility] and [facility] Address 20 [place] [address] Care Team Providers Care Asphalt Spreader Name Role Phone Sal Jose MD Primary Care Provider [phone] Encounter Details Date Type Department Care Team (Late Contact Info) Description 08/09/2014 Abstract [facility] Endocr[facility]ology at 175 [facility] 175 [place] [address] Emerita Beth MD 35 [place] [phone] Social History Tobacco Use Types Packs/Day Years [...] [facility] [place], [place] [address] Virgie Mast MD PhD 800 [place] [phone] 08/09/2025 1:00 PM EST Office Visit [place] 136 [facility] [address] [place], [place] [address] Ramon Nixon MD 136 [facility] 302 [place] [address] Ksenai Jain, RT 05/04/2026 1:45 PM EDT Office Visit Stroke [address] [facility] [place] [address] Kristine Kelly MD PhD 800 [place] [address] 05/09/2026 1:00 PM EDT Follow Up Cardiovascular Medicine at 175 [facility] 175 [facility] THIRD [address]LOOR [place], [place] [address] iMke Hilario MD 175 [facility] 2 [place] [address] documented as of this encounter Visit Diagnoses Not on filedocumented in this encounter Care Teams Asphalt Spreader Relationship Specialty Start Date End Date Sal Jose MD 1033 [facility] [address] [place] [phone] PCP - General Family Medicine 10/16/23 documented as of this encounter
--- OUTSIDE RECORDS SUMMARY | 2025-05-30 15:20 | XMS_ITS | Encounter Summary ---
Author Organization [facility] Address Unknown Care Team Providers Care Medication Tech Name Role Phone Sal Jose MD Primary Care Provider [phone] Encounter Details Date Type Department Care Team (Late st Contact Info) Description 05/11/2024 Scanned Document [place]monary Critical [place] 136 [facility] [address] [place], [place] [address] Ramon Nixon MD 136 [facility] 302 [place] [phone] Social History Tobacco Use Types Packs/Day Years [...] 800 [facility] 800 [place] [address] Virgie Mast MD PhD [address] [place], [place] [address], [place] [phone] 08/09/2025 1:00 PM EST Office Visit [place]monary Critical [place] 136 [facility] [address] [place] [address] Ramon Nixon MD 136 [facility] [address] 302 [place] [phone] Cristobal Ksenia Spencer, RT 05/04/2026 1:45 PM EDT Office Visit Stroke 800 [facility] [place] [address] Kristine Kelly MD PhD 800 [place] [phone] 05/09/2026 1:00 PM EDT Follow Up Cardiovascular Medicine at 175 [facility] 175 [facility] [place] [address] Mike Hilario MD 175 [facility] [address] 2 [place] [address] documented as of this encounter Visit Diagnoses Not on filedocumented in this encounter Additional Health Concerns Assessment Noted Time PHQ-9 Depression Total Score: 0 04/07/20 2:31 PM EDT documented as of this encounter Care Teams Medication Tech Relationship Specialty Start Date End Date Sal Jose MD [facility] [address] [address] PCP - General Family Medicine 10/16/23 documented as of this encounter
--- OUTSIDE RECORDS SUMMARY | 2025-05-30 15:20 | XMS_ITS | Encounter Summary ---
Author Organization [facility] Address Unknown Care Team Providers Care Camera Supervisor Name Role Phone Sal Jose MD Primary Care Provider [phone] Encounter Details Date Type Department Care Team (Late st Contact Info) Description 11/19/2022 Scanned Document [place]monary [place] 136 [facility] 302 [place], [place] [address] External, Provider Social History Tobacco Use Types [...] [facility] [place] [address] Virgie Mast MD PhD 800 [place] [phone] 08/09/2025 1:00 PM EST Office Visit [place] 136 [facility] 302 [place], [place] [address] Ramon Nixon MD 136 [facility] 302 [place] [phone] Ksenia Jain, RT 05/04/2026 1:45 PM EDT Office Visit Stroke 800 [facility] [place] [address] Kristine Kelly MD PhD 800 [place] [address] 05/09/2026 1:00 PM EDT Follow Up Cardiovascular Medicine at 175 [facility] 175 [facility] THIRD FLOOR [place], [place] [address] Mike Hilario MD 175 [facility] [address] 2 [place] [address] documented as of this encounter Visit Diagnoses Not on filedocumented in this encounter Care Teams Camera Supervisor Relationship Specialty Start Date End Date Sal Jose MD [address] [phone] PCP - General Family Medicine 10/16/23 documented as of this encounter
--- OUTSIDE RECORDS SUMMARY | 2025-05-30 15:20 | XMS_ITS | Encounter Summary ---
Author Organization [facility] Address [address] [place] [address] Care Team Providers Care Teaching Supervisor Name Role Phone Sal Jose MD Primary Care Provider [phone] Encounter Details Date Type Department Care Team (Late Contact Info) Description 07/21/2024 Transcribed Orders [facility] Specimens [address] [place], [place] [address] System, Provider Not In CRST syndrome (HC [...] 800 [facility] 800 [place], [place] [address] Virgie Mast MD PhD [address] [place] [phone] 08/09/2025 1:00 PM EST Office Visit [place]monary Critical [place] 136 [facility] [address] [place], [place] [address] Ramon Nixon MD 136 [facility] 302 [place] [phone] Ksenia Jain, RT 05/04/2026 1:45 PM EDT Office Visit Stroke 800 [facility] Lower [place], [place] [address] Kristine Kelly MD PhD 800 [place] [phone] 05/09/2026 1:00 PM EDT Follow Up Cardiovascular Medicine at 175 [facility] 175 [facility] THIRD [place]LOOR [place], [place] [address] Mike Hilario MD 175 [facility] [address] 2 [place] [phone] documented as of this encounter Results * Sedimentation rate (ESR) (07/23/2024 1:13 PM EST) Sedimentation Rate (ESR) 12 0 - 20 mm/hr 07/23/2024 2:55 PM EST [facility]IC[facility] Blood Venipuncture / Unknown 07/23/2024 1:13 PM EST 07/23/2024 2:24 PM EST us Provider Not In System LAB BLOOD ORDERABLES Evelin smith Result [facility]ICINE [address] [place] [address] documented in this encounter 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
--- OUTSIDE RECORDS SUMMARY | 2025-05-30 15:20 | XMS_ITS | Encounter Summary ---
Author Organization [facility] and [facility] Address [address] [place] [address] Care Team Providers Care Dispatcher Tow Truck Name Role Phone Sal Jose MD Primary Care Provider [phone] Encounter Details Date Type Department Care Team (Late Contact Info) Description 10/28/2023 Scanned Document [facility] [address] [place] [address] Joao Loredo MD [address] [place] [phone] Social History Tobacco Use Types Packs/Day Years [...] Office Visit [facility] at [address] [place] [address] 765999 Virgie Mast MD PhD [address] [place] [phone] 08/09/2025 1:00 PM EST Office Visit [place] [address] [place] [address] [address] [place] [address] Ramon Nixon MD 136 [facility] [address] [place] [address] Ksenia Jain, RT 05/04/2026 1:45 PM EDT Office Visit Stroke 800 [facility] [place] [address] Kristine Kelly MD PhD 800 [place] [phone] 05/09/2026 1:00 PM EDT Follow Up Cardiovascular Medicine at 175 [facility] 175 [facility] THIRD FLOOR [place], [place] 98[address] Mike Hilario MD 175 [facility] Fl 2 [place] [phone] documented as of this encounter Visit Diagnoses Not on filedocumented in this encounter Care Teams Dispatcher Tow Truck Relationship Specialty Start Date End Date Sal Jose MD [address] [phone] PCP - General Family Medicine 10/16/23 documented as of this encounter
--- OUTSIDE RECORDS SUMMARY | 2025-05-30 15:20 | XMS_ITS | Encounter Summary ---
Author Organization [facility] and [facility] Address [address] [place] [address] Care Team Providers Care Delivery And Mail Sorter Name Role Phone Sal Jose MD Primary Care Provider Encounter Details Date Type Department Care Team (Late st Contact Info) Description 08/13/2023 Scanned Document EXTERNAL REFERRAL SOURCE 20 [place] [address] External, Provider Social History Tobacco Use Types [...] Visit [facility] at 800 [facility] 800 [facility] [place] [address] Virgie Mast MD PhD 800 [place] [phone] 08/09/2025 1:00 PM EST Office Visit [place] Critical [place] 136 [facility] 302 [place], [place] 423891 Ramon Nixon MD [address] [place] [address] 302 [place] [phone] Ksenia Jain, RT 05/04/2026 1:45 PM EDT Office Visit Stroke 800 [facility] Lower [place], [place] 85[address] Kristine Kelly MD PhD 800 [place] [phone] 05/09/2026 1:00 PM EDT Follow Up Cardiovascular Medicine at 175 [facility] 175 [facility] THIRD [place]LOOR [place], [place] [address] Mike Hilario MD 175 [facility] Fl 2 [place] [phone] documented as of this encounter Visit Diagnoses Not on filedocumented in this encounter Care Teams Delivery And Mail Sorter Relationship Specialty Start Date End Date Sal Jose MD [address] [phone] PCP - General Family Medicine 10/16/23 documented as of this encounter
--- OUTSIDE RECORDS SUMMARY | 2025-05-30 15:20 | XMS_ITS | Encounter Summary ---
Author Organization [facility] and [facility] Address [address] [place] [address] Care Team Providers Care Security Ambassador Name Role Phone Sal Jose MD Primary Care Provider [phone] Encounter Details Date Type Department Care Team (Late Contact Info) Description 10/27/2023 Scanned Document CARE CENTER SCHEDULING 25 [place], [place] [address]461 Provider, Historical . Social History Tobacco Use [...] Visit Epilepsy & Seizures at 800 [facility] 800 [facility] [place] [address] Virgie Mast MD PhD 800 [place] [phone] 08/09/2025 1:00 PM EST Office Visit Pulmonary Critical [place] 136 [facility] [address] [place], [place] [address] Ramon Nixon MD [address] [place] [address] 302 [place] [address] Ksenia Jain, RT 05/04/2026 1:45 PM EDT Office Visit Stroke 800 [facility] [place] [address] Kristine Kelly MD PhD 800 [place] [phone] 05/09/2026 1:00 PM EDT Follow Up Cardiovascular Medicine at 175 [facility] 175 [facility] THIRD [place]LO[place] [address] Mike Hilario MD 175 [facility] 2 [place] [address] documented as of this encounter Visit Diagnoses Not on filedocumented in this encounter Care Teams Security Ambassador Relationship Specialty Start Date End Date Sal Jose MD 1033 [facility] [address] [place] [phone] PCP - General Family Medicine 10/16/23 documented as of this encounter
--- OUTSIDE RECORDS SUMMARY | 2025-05-30 15:20 | XMS_ITS | Encounter Summary ---
Author Organization [facility] Address Unknown Care Team Providers Care Cold Type Composing Machine Operator Name Role Phone Sal Jose MD Primary Care Provider [phone] Encounter Details Date Type Department Care Team (Late st Contact Info) Description 08/27/2023 Scanned Document Pulmonary Critical [place] 136 [facility] 302 [place], [place] [address] External, Provider Social History Tobacco Use Types [...] Hospital 800 [facility] [place] [address] Virgie Mast MD PhD 800 [place] [phone] 08/09/2025 1:00 PM EST Office Visit Pulmonary Critical [place] 136 [facility] 302 [place], [place] 4769[address] Ramon Nixon MD 136 [facility] 302 [place] [phone] Ksenia Jain, RT 05/04/2026 1:45 PM EDT Office Visit Stroke 800 [facility] [place] [address] Kristine Kelly MD PhD 800 [facility] [place] [address] 05/09/2026 1:00 PM EDT Follow Up Cardiovascular Medicine at 175 [facility] 175 [facility] THIRD [place]LOOR [place], [place] [address] Mike Hilario MD 175 [facility] Fl 2 [place] [phone] documented as of this encounter Procedures Procedure Name Priority Date/Time Associated Diagnosis Comments CARDIAC ECHO RESULT SCAN Routine 08/27/2023 documented in this encounter Results * Cardiac Echo Result Scan (08/27/2023) Provider External CV CARDIAC REPORT (CVR) Final Result documented in this encounter Visit Diagnoses Not on filedocumented in this encounter Care Teams Cold Type Composing Machine Operator Relationship Specialty Start Date End Date Sal Jose MD [address] [phone] PCP - General Family Medicine 10/16/23 documented as of this encounter
--- OUTSIDE RECORDS SUMMARY | 2025-05-30 15:20 | XMS_ITS | Encounter Summary ---
Author Organization [facility] and [facility] Address [address] [place] [address] Care Team Providers Care Clinical Operations Leader Name Role Phone Sal Jose MD Primary Care Provider [phone] Reason for Visit * Reason Onset Date Comments Holter/Event Monitor 11/13/2023 Trying to E nroll Pt for MCT monitor Encounter Details Date Type Department Care Team (Late st Contact Info) Description 11/13/2023 Telephone [facility] Stroke 800 [place], [place] [address] Kristine Kelly MD PhD 800 [place] [phone] Holter/Event Monitor (Trying to Enroll Pt for [...] Visit [facility] at 800 [facility] 800 [facility] [place] [address] Virgie Mast MD PhD 800 [place] [phone] 08/09/2025 1:00 PM EST Office Visit [place] [address] 158291 Ramon Nixon MD [address] [place] [address] [place] [address] Ksenia Jain Carly, RT 05/04/2026 1:45 PM EDT Office Visit Stroke 800 [facility] [place] [address] Kristine Kelly MD PhD 800 [place] [phone] 05/09/2026 1:00 PM EDT Follow Up Cardiovascular Medicine at 175 [facility] 175 [facility] THIRD FLOOR [place], [place] [address] Mike Hilario MD 175 [facility] 2 [place] [address] documented as of this encounter Visit Diagnoses Not on filedocumented in this encounter Care Teams Clinical Operations Leader Relationship Specialty Start Date End Date Sal Jose MD 1033 [facility] [address] [place] [phone] PCP - General Family Medicine 10/16/23 documented as of this encounter
--- OUTSIDE RECORDS SUMMARY | 2025-05-30 15:20 | XMS_ITS | Encounter Summary ---
Author Organization [facility] Address Unknown Care Team Providers Care Web Sizer Name Role Phone Sal Jose MD Primary Care Provider [phone] Encounter Details Date Type Department Care Team (Late st Contact Info) Description 08/13/2023 Scanned Document Pulmonary Critical [place] 136 [facility] 302 [place], [place] [address] External, Provider Social History Tobacco Use Types [...] [facility] at 800 [facility] 800 [facility] [place] [address] Virgie Mast MD PhD 800 [place] [address] 08/09/2025 1:00 PM EST Office Visit Pulmonary Critical [place] 136 [facility] 302 [place], [place] 88[address] Ramon Nixon MD 136 [facility] 302 [place] [address] Ksenia Jain, RT 05/04/2026 1:45 PM EDT Office Visit Stroke 800 [facility] [place] [address] Kristine Kelly MD PhD 800 [place] [address] 05/09/2026 1:00 PM EDT Follow Up Cardiovascular Medicine at 175 [facility] 175 [facility] THIRD FLOOR [place], [place] 86[address] Mike Hilario MD 175 [facility] Fl 2 [place] [phone] documented as of this encounter Visit Diagnoses Not on filedocumented in this encounter Care Teams Web Sizer Relationship Specialty Start Date End Date Sal Jose MD [address] [phone] PCP - General Family Medicine 10/16/23 documented as of this encounter
--- OUTSIDE RECORDS SUMMARY | 2025-05-30 15:20 | XMS_ITS | Encounter Summary ---
Author Organization [facility] Address Unknown Care Team Providers Care Sprinkler Driver Name Role Phone Sal Jose MD Primary Care Provider [phone] Encounter Details Date Type Department Care Team (Late st Contact Info) Description 11/27/2021 Scanned Document [facility]monary Critical [place] 136 [facility] 302 [place] [address] External, Provider Social History Tobacco Use Types [...] [facility] [place] [address] Virgie Mast MD PhD 800 [place] [address] 08/09/2025 1:00 PM EST Office Visit [place]monary Critical [place] 136 [facility] 302 [place], [place] [address] Ramon Nixon MD 136 [facility] 302 [place] [phone] Ksenia Jain, RT 05/04/2026 1:45 PM EDT Office Visit Stroke 800 [facility] [place] [address] Kristine Kelly MD PhD 800 [place] [address] 05/09/2026 1:00 PM EDT Follow Up Cardiovascular Medicine at 175 [facility] 175 [facility] THIRD FLOOR [place], [place] 36[address] Mike Hilario MD 175 [facility] [address] 2 [place] [address] documented as of this encounter Visit Diagnoses Not on filedocumented in this encounter Care Teams Sprinkler Driver Relationship Specialty Start Date End Date Sal Jose MD [address] [phone] PCP - General Family Medicine 10/16/23 documented as of this encounter
--- OUTSIDE RECORDS SUMMARY | 2025-05-30 15:20 | XMS_ITS | Encounter Summary ---
Author Organization [facility] Address Unknown Care Team Providers Care Business Law Professor Name Role Phone Sal Jose MD Primary Care Provider Encounter Details Date Type Department Care Team (Late st Contact Info) Description 11/19/2022 Scanned Document Pulmonary Critical [place] 136 [facility] 302 [place], [place] [address] External, Provider Social History Tobacco Use Types [...] Visit [facility] at 800 [facility] 800 [facility] [place] [address] Virgie Mast MD PhD 800 [place] [address] 08/09/2025 1:00 PM EST Office Visit Pulmonary Critical [place] 136 [facility] 302 [place], [place] [address] Ramon Nixon MD 136 [facility] 302 [place] [phone] Ksenia Jain, RT 05/04/2026 1:45 PM EDT Office Visit Stroke 800 [facility] [place] [address] Kristine Kelly MD PhD 800 [place] [phone] 05/09/2026 1:00 PM EDT Follow Up Cardiovascular Medicine at 175 [facility] 175 [facility] THIRD [place]LO[place], [place] [address] Mike Hilario MD 175 [facility] Fl 2 [place] [address] documented as of this encounter Visit Diagnoses Not on filedocumented in this encounter Care Teams Business Law Professor Relationship Specialty Start Date End Date Sal Jose MD [address] [phone] PCP - General Family Medicine 10/16/23 documented as of this encounter
--- OUTSIDE RECORDS SUMMARY | 2025-05-30 15:20 | XMS_ITS | Encounter Summary ---
Author Organization [facility] and [facility] Address [address] [place] [phone] Care Team Providers Care Diesel Locomotive Engineer Name Role Phone Sal Jose MD Primary Care Provider [phone] Encounter Details Date Type Department Care Team (Late Contact Info) Description 12/04/2023 Transcribed Orders [facility] Specimens 55 [place] [address] System, Provider Not In CREST variant of [...] [facility] [place] [address] Virgie Mast MD PhD 800 [place] [phone] 08/09/2025 1:00 PM EST Office Visit Pulmonary Critical [place] 136 [facility] [address] [place] [address] Ramon Ron MD [address] [place] [address] Ave [address] 302 [place] [address] LavelleKrishna, Ksenia Carroll, RT 05/04/2026 1:45 PM EDT Office Visit Stroke 800 [facility] Lower Level [place], [place] [address] Kristine Kelly MD PhD 800 [place] [address] 05/09/2026 1:00 PM EDT Follow Up Cardiovascular Medicine at 175 [facility] 175 [facility] [place] [address] Mike Hilario MD 175 [facility] Fl 2 [place] [address] documented as of this encounter Results * Sedimentation rate (ESR) (05/20/2024 12:53 PM EDT) Pathologist [facility] Sedimentation Rate (ESR) 4 0 - 20 mm/hr 05/20/2024 1:59 PM EDT [facility] Blood Venipuncture / Unknown 05/20/2024 12:53 PM EDT 05/20/2024 1:31 PM EDT us Provider Not In System LAB BLOOD ORDERABLES Evelin smith Result Performing Organization Address City/State/[facility] Co de Phone Number [facility] [address] [place] [address] * (ABNORMAL) C-reactive protein (CRP) (04/15/2024 12:20 PM EDT) CRP, High Sensitivity 3.1(H) See comment mg/L 04/15/2024 3:42 PM EDT [facility] Comment: hs-CRP Risk [...] 12:20 PM EDT 04/15/2024 3:13 PM EDT Provider Not In System LAB BLOOD ORDERABLES Evelin l Result Performing Organization Address [facility] Co de Phone Number [facility] [address] [place] [address] * (ABNORMAL) Sedimentation rate (ESR) (04/15/2024 12:20 PM EDT) Sedimentation Rate (ESR) 24(H) 0 - 20 mm/hr 04/15/2024 3:41 PM EDT [facility] Blood Venipuncture / Unknown 04/15/2024 12:20 PM EDT 04/15/2024 2:54 PM EDT us Provider Not In System LAB BLOOD ORDERABLES Evelin l Result Performing Organization Address [facility] Co de Phone Number [facility] [address] [place] [address] * (ABNORMAL) C-reactive protein (CRP) (03/17/2024 10:36 AM EDT) CRP, High Sensitivity 6.3(H) See comment mg/L 03/17/2024 11:47 AM EDT [facility] Comment: hs-CRP Risk [...] ORDERABLES Evelin l Result Performing Organization Address [facility]/ZIP Co de Phone Number [facility] [address] [place] [address] * (ABNORMAL) Sedimentation rate (ESR) (03/17/2024 10:36 AM EDT) Sedimentation Rate (ESR) 23(H) 0 - 20 mm/hr 03/17/2024 11:46 AM EDT [facility] Blood Venipuncture / Unknown 03/17/2024 10:36 AM EDT 03/17/2024 11:15 AM EDT us Provider Not In System LAB BLOOD ORDERABLES Evelin l Result Performing Organization Address [facility] de Phone Number [facility] [address] [place] [address] * (ABNORMAL) C-reactive protein (CRP) (02/20/2024 3:41 PM EDT) CRP, High Sensitivity 8.9(H) See comment mg/L 02/20/2024 4:36 PM EDT [facility] Comment: hs-CRP Risk [...] ORDERABLES Evelin l Result Performing Organization Address [facility] Co de Phone Number [facility] [address] [place] [address] * Sedimentation rate (ESR) (02/20/2024 3:41 PM EDT) Sedimentation Rate (ESR) 18 0 - 20 mm/hr 02/20/2024 7:04 PM EDT [facility] Blood Venipuncture / Unknown 02/20/2024 3:41 PM EDT 02/20/2024 4:04 PM EDT Provider Not In System LAB BLOOD ORDERABLES Evelin l Result Performing Organization Address [facility] Co de Phone Number [facility] [address] [place] [address] * (ABNORMAL) C-reactive protein (CRP) (12/09/2023 1:52 PM EDT) CRP, High Sensitivity 4.4(H) See comment mg/L 12/09/2023 4:44 PM EDT [facility] Comment: hs-CRP Risk [...] ORDERABLES Evelin l Result Performing Organization Address [facility] Co de Phone Number [facility] [address] [place] [address] * Sedimentation rate (ESR) (12/09/2023 1:52 PM EDT) Sedimentation Rate (ESR) 10 0 - 20 mm/hr 12/09/2023 5:08 PM EDT [facility] Blood Venipuncture / Unknown 12/09/2023 1:52 PM EDT 12/09/2023 4:20 PM EDT us Provider Not In System LAB BLOOD ORDERABLES Evelin l Result [facility] [address] [place] [address] documented in this encounter Visit Diagnoses Diagnosis 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
--- OUTSIDE RECORDS SUMMARY | 2025-05-30 15:20 | XMS_ITS | Encounter Summary ---
Author Organization [facility] and [facility] Address [address] [place] [address] Care Team Providers Care Insurance Adjuster Name Role Phone Sal Jose MD Primary Care Provider Encounter Details Date Type Department Care Team (Late st Contact Info) Description 10/17/2023 Scanned Document [facility] Stroke 800 [place], [place] [address] Kristine Kelly MD PhD [address] [place] [phone] Social History Tobacco Use Types Packs/Day [...] [facility] at 800 [facility] 800 [place], [place] [address] Virgie Mast MD PhD 800 [place] [phone] 08/09/2025 1:00 PM EST Office Visit Pulmonary Critical [place] 136 [facility] [address] [place] [address] Ramon Nixon MD 136 [facility] [address] 302 [place] [address] Ksenia Jain, RT 05/04/2026 1:45 PM EDT Office Visit Stroke 800 [facility] [place] [address] Kristine Kelly MD PhD 800 [place] [address] 05/09/2026 1:00 PM EDT Follow Up Cardiovascular Medicine at 175 [facility] 175 [facility] [place] [address] Mike Hilario MD 175 [facility] [address] 2 [place] [address] documented as of this encounter Visit Diagnoses Not on filedocumented in this encounter Care Teams Insurance Adjuster Relationship Specialty Start Date End Date Sal Jose MD [address] [phone] PCP - General Family Medicine 10/16/23 documented as of this encounter
--- OUTSIDE RECORDS SUMMARY | 2025-05-30 15:20 | XMS_ITS | Encounter Summary ---
Author Organization [facility] Address Unknown Care Team Providers Care Dealer Sales Rep Name Role Phone Sal Jose MD Primary Care Provider [phone] Encounter Details Date Type Department Care Team (Late st Contact Info) Description 08/13/2023 Scanned Document Pulmonary Critical [place] 136 [facility] 302 [place], [place] [address] External, Provider Social History Tobacco Use Types [...] Visit [facility] at 800 [facility] 800 [facility] [place] [address] Virgie Mast MD PhD 800 [place] [address] 08/09/2025 1:00 PM EST Office Visit [facility]monary Critical [place] 136 [facility] 302 [place], [place] [address] aRmon Nixon MD 136 [facility] 302 [place] [address] Ksenia Jain, RT 05/04/2026 1:45 PM EDT Office Visit Stroke 800 [facility] [place] [address] Kristine Kelly MD PhD 800 [place] [address] 05/09/2026 1:00 PM EDT Follow Up Cardiovascular Medicine at 175 [facility] 175 [facility] THIRD FLOOR [place], [place] [address] Mike Hilario MD 175 [facility] [address] [place] [phone] documented as of this encounter Visit Diagnoses Not on filedocumented in this encounter Care Teams Dealer Sales Rep Relationship Specialty Start Date End Date Sal Jose MD [address] [phone] PCP - General Family Medicine 10/16/23 documented as of this encounter
--- OUTSIDE RECORDS SUMMARY | 2025-05-30 15:20 | XMS_ITS | Patient Health Record ---
Author Organization [facility] Address [address] [place] [phone] Care Team Providers Care Apartment Leasing Manager Name Role Phone Jayant Walker Primary Care Provider Venkatesh Mauro [phone] Allergies Allergen (clinical drug ingredient) Drug/Non Drug Allergy documented on EMR Reaction Allergy Type Onset Date Status Penicillin Unknown Drug Allergy Active morphine Morphine Unknown Drug Allergy Active Reason For Referral No Information Medications Medication SIG (Take, Route, Frequency, Duration) Notes Start Date End Date Status Montelukast Sodium 10 MG TAKE 1 TABLET BY MOUTH EVERY DAY AT NIGHT Oral; Duration: 90 Days Active traMADol HCl 50 MG TAKE 1 TABLET BY MOUTH TWICE A DAY NEEDED FOR PAIN Oral; Duration: 30 Days Active Aspirin 81 81 MG 1 tablet Orally Once a day; Duration: 30 day(s) 02/08/2025 Active Ambien 10 MG 1 tablet at bedtime as needed Orally Once a day 02/08/2025 Active Clopidogrel Bisulfate 75 MG TAKE 1 TABLET BY MOUTH EVERY DAY Oral; Duration: 90 Days Active Metoprolol Succinate ER 25 MG TAKE 1 TABLET BY MOUTH 2 TIMES A DAY FOR 90 DAYS Oral; Duration: 90 Days Active Budesonide-Formoterol Fumarate 160-4.5 MCG/ACT INHALE 2 PUFFS INTO THE LUNGS TWICE A DAY Inhalation; Duration: 30 Days Active Fenofibrate 145 MG TAKE 1 TABLET BY MOUTH EVERY DAY Oral; Duration: 90 Days Active Cetirizine HCl 10 MG 1 tablet Orally Once a day; Duration: 30 day(s) 02/08/2025 Active Vitamin B Complex - as directed Orally 02/08/2025 Active Pantoprazole Sodium 40 MG 1 tablet 1/2 to 1 hour before morning meal Orally Once a day; Duration: 30 days Please remind the patient to speak with the physician prescribing her clopidogrel before she starts to use the pantoprazole Thanks very much 02/08/2025 Active Diclofenac 1.25 % 1 patch Externally Once a day 02/08/2025 Active Levothyroxine Sodium 50 MCG Oral; Duration: 90 Days Active Vitamin B 12 500 MCG 1 tablet Orally Once a day; Duration: 30 day(s) 02/08/2025 Active Levothyroxine Sodium 50 MCG TAKE 1 TABLET BY MOUTH EVERY DAY Oral; Duration: 90 Days Active Ventolin HFA 108 (90 Base) MCG/ACT 1 puff as needed Inhalation every 4 hrs 02/08/2025 Active Atorvastatin Calcium 80 MG Oral; Duration: 90 Days Active amLODIPine Besy-Benazepril HCl 5-10 MG Oral; Duration: 90 Days Active Metoprolol Succinate ER 25 MG Oral; Duration: 90 Days Active Lidocaine 5 % 1 patch remove after 12 hours Externally Once a day 02/08/2025 Active levETIRAcetam 500 MG 1 tablet Orally every 12 hrs; Duration: 30 day(s) 02/08/2025 Active Gabapentin 400 MG TAKE 1 CAPSULE BY MOUTH 3 TIMES DAILY. Oral; Duration: 30 Days Active Protonix 40 MG 1 tablet 1/2 to 1 hour before morning meal Orally Once a day; Duration: 30 day(s) 02/08/2025 Active Mycophenolate Mofetil 250 MG TAKE 5 CAPSULES BY MOUTH TWICE A DAY Oral; Duration: 90 Days Active Pentoxifylline ER 400 MG 1 tablet with meals Orally Twice a day; Duration: 30 day(s) 02/08/2025 Active Albuterol Sulfate HFA 108 (90 Base) MCG/ACT Inhalation; Duration: 16 Days Active Albuterol Sulfate HFA 108 (90 Base) MCG/ACT INHALE 2 PUFFS INTO THE LUNGS EVERY 4 (FOUR) HOURS NEEDED FOR SHORTNESS OF BREATH Inhalation; Duration: 16 Days Active Silver sulfADIAZINE 1 % APPLY TOPICALLY 2 TIMES A DAY FOR 10 DAYS APPLY A 1.5 MM THICKNESS. NEED INSURANCE External; Duration: 10 Days Active Immunizations Vaccine Route Administration [...] Status Risk Notes Problem Colon cancer screening (696837497) Colon cancer screening (Z12.11) Active confirmed Problem Irregular bowel habits (382360958) Irregular bowel habits (R19.8) Active confirmed Problem Long-term current use of anticoagulant (804650964) Anticoagulant long-term use (Z79.01) Active confirmed Problem Systemic sclerosis (93176940) 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) Active confirmed Problem Gastroesophageal reflux disease (133275946) GERD without esophagitis (K21.9) Active confirmed Problem History of polyp of colon (situation) (023320323) History of colon polyps (Z86.0100) Active confirmed [...] N/A Encounters Encounter Location Date Provider Diagnosis [facility] [address] [place] [phone] 02/08/2025 Venkatesh Marsh History of colon gely yps Z86.0100 ; GERD without esophagitis K21.9 ; Colon cancer screening Z12.11 ; Anticoagulant long-term use Z79.01 ; Irregular bowel habits R19.8 and Scleroderma of esophagus M34.1 [facility] [address] [place] [phone] 02/08/2025 Venkatesh Marsh [facility] [address] [place] [address] 04/21/2025 Venkatesh Marsh Assessments Encounter Date Diagnosis (ICD [...] to speak with her stroke doctor at [facility] who prescribes her clopidogrel so as to be sure that is not contraindicated from their standpoint. I did recommend a follow-up upper endoscopy given the description of her previous endoscopies and recommendations from her die maker in [place], [place]. She is not having any [...] but was advised to speak with her [facility] physicians about those recommendations to be sure there is no contraindication to them. I advised her that she might need Lovenox for bridging while off the clopidogrel and pentoxifylline. However, I advised her that would be up to the physicians at [facility]. These procedures will be scheduled for her at some point in the Fall. I do not think they need to be done sooner from a clinical standpoint based on no worrisome symptoms at the present time. I wanted to leave enough time for us to get information and ultimate clearance from all of her physicians at [facility]. She clearly has comorbidities including pulmonary issues, coronary artery disease, and cerebrovascular disease. I advised her to try to get clearance letters and summaries of her medical issues from the [facility] physician such that we can share them with the medical staff and anesthesiologist at [facility] prior to her procedures. If it turns out that her [facility] physicians do not think she is stable [...] to speak with her stroke doctor at [facility] who prescribes her clopidogrel so as to be sure that is not contraindicated from their standpoint. I did recommend a follow-up upper endoscopy given the description of her previous endoscopies and recommendations from her die maker in [place], [place]. She is not having any [...] but was advised to speak with her [facility] physicians about those recommendations to be sure there is no contraindication to them. I advised her that she might need Lovenox for bridging while off the clopidogrel and pentoxifylline. However, I advised her that would be up to the physicians at [facility]. These procedures will be scheduled for her at some point in the Fall. I do not think they need to be done sooner from a clinical standpoint based on no worrisome symptoms at the present time. I wanted to leave enough time for us to get information and ultimate clearance from all of her physicians at [facility]. She clearly has comorbidities including pulmonary issues, coronary artery disease, and cerebrovascular disease. I advised her to try to get clearance letters and summaries of her medical issues from the [facility] physician such that we can share them with the medical staff and anesthesiologist at [facility] prior to her procedures. If it turns out that her [facility] physicians do not think she is stable for these procedures we can always postpone them to a later date. Roman was comfortable with this plan. Thank you again for allowing me to participate in Roman's care. I shall continue to keep you advised of her progress. 02/08/2025 Colon cancer screening (ICD-10 - Z12.11) Need names of your [place] doctors and we will need letters with [...] to speak with her stroke doctor at [facility] who prescribes her clopidogrel so as to be sure that is not contraindicated from their standpoint. I did recommend a follow-up upper endoscopy given the description of her previous endoscopies and recommendations from her die maker in [place], [place]. She is not having any [...] but was advised to speak with her [facility] physicians about those recommendations to be sure there is no contraindication to them. I advised her that she might need Lovenox for bridging while off the clopidogrel and pentoxifylline. However, I advised her that would be up to the physicians at [facility]. These procedures will be scheduled for her at some point in the Fall. I do not think they need to be done sooner from a clinical standpoint based on no worrisome symptoms at the present time. I wanted to leave enough time for us to get information and ultimate clearance from all of her physicians at [facility]. She clearly has comorbidities including pulmonary issues, coronary artery disease, and cerebrovascular disease. I advised her to try to get clearance letters and summaries of her medical issues from the [facility] physician such that we can share them with the medical staff and anesthesiologist at [facility] prior to her procedures. If it turns out that her [facility] physicians do not think she is stable [...] to speak with her stroke doctor at [facility] who prescribes her clopidogrel so as to be sure that is not contraindicated from their standpoint. I did recommend a follow-up upper endoscopy given the description of her previous endoscopies and recommendations from her die maker in [place], [place]. She is not having any [...] but was advised to speak with her [facility] physicians about those recommendations to be sure there is no contraindication to them. I advised her that she might need Lovenox for bridging while off the clopidogrel and pentoxifylline. However, I advised her that would be up to the physicians at [facility]. These procedures will be scheduled for her at some point in the Fall. I do not think they need to be done sooner from a clinical standpoint based on no worrisome symptoms at the present time. I wanted to leave enough time for us to get information and ultimate clearance from all of her physicians at [facility]. She clearly has comorbidities including pulmonary issues, coronary artery disease, and cerebrovascular disease. I advised her to try to get clearance letters and summaries of her medical issues from the [facility] physician such that we can share them with the medical staff and anesthesiologist at [facility] prior to her procedures. If it turns out that her [facility] physicians do not think she is stable [...] to speak with her stroke doctor at [facility] who prescribes her clopidogrel so as to be sure that is not contraindicated from their standpoint. I did recommend a follow-up upper endoscopy given the description of her previous endoscopies and recommendations from her die maker in [place], [place]. She is not having any [...] but was advised to speak with her [facility] physicians about those recommendations to be sure there is no contraindication to them. I advised her that she might need Lovenox for bridging while off the clopidogrel and pentoxifylline. However, I advised her that would be up to the physicians at [facility]. These procedures will be scheduled for her at some point in the Fall. I do not think they need to be done sooner from a clinical standpoint based on no worrisome symptoms at the present time. I wanted to leave enough time for us to get information and ultimate clearance from all of her physicians at [facility]. She clearly has comorbidities including pulmonary issues, coronary artery disease, and cerebrovascular disease. I advised her to try to get clearance letters and summaries of her medical issues from the [facility] physician such that we can share them with the medical staff and anesthesiologist at [facility] prior to her procedures. If it turns out that her [facility] physicians do not think she is stable [...] to speak with her stroke doctor at [facility] who prescribes her clopidogrel so as to be sure that is not contraindicated from their standpoint. I did recommend a follow-up upper endoscopy given the description of her previous endoscopies and recommendations from her die maker in [place], [place]. She is not having any [...] but was advised to speak with her [facility] physicians about those recommendations to be sure there is no contraindication to them. I advised her that she might need Lovenox for bridging while off the clopidogrel and pentoxifylline. However, I advised her that would be up to the physicians at [facility]. These procedures will be scheduled for her at some point in the Fall. I do not think they need to be done sooner from a clinical standpoint based on no worrisome symptoms at the present time. I wanted to leave enough time for us to get information and ultimate clearance from all of her physicians at [facility]. She clearly has comorbidities including pulmonary issues, coronary artery disease, and cerebrovascular disease. I advised her to try to get clearance letters and summaries of her medical issues from the [facility] physician such that we can share them with the medical staff and anesthesiologist at [facility] prior to her procedures. If it turns out that her [facility] physicians do not think she is stable for these procedures we can always postpone them to a later date. Roman was comfortable with this plan. Thank you again for allowing me to participate in Roman's care. I shall continue to keep you advised of her progress. Plan Of Treatment Pending Test Test Name Order Date UPPER GI ENDOSCOPY 02/08/2025 COLONOSCOPY 02/08/2025 Insurance Providers Payer Name Payer Address Payer Phone Subscriber Number Group Number Insured Name Patient Relationship to Insured Coverage Start Date Coverage End Date MEDICARE OF [place] [address] FRANKO ANDERSON MARIA ALEJANDRA [id number] JERRICA Mcdonough ROMAN Self - patient is the insured 5 MEDICAID OF [facility] [address] [place] [address] [phone] [id number] ROMAN SÁNCHEZ Self - patient is the insured Medical (General) History Medical History History ICD Code 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 She describes removal of polyps [...] requiring previous upper endoscopies and dilations in [place], [place] Hypthyoidism--had Grave's disease--s/p s urgery Interstitial lung disease from scleroder ma--Site Leasing Agent at [facility] Sees Dairy Processing Supervisor at [facility] for a sclerode rma-related heart issue Seizures GERD and esophageal strictur e due to esophageal dysmotility from scleroderma as described above Surgical History Surgery Date(Month/Year) BTL Thyroidectomy/Parathyroidectomy
--- OUTSIDE RECORDS SUMMARY | 2025-05-30 15:20 | XMS_ITS | Clinical Summary ---
Author Organization [facility] Address [address] [place] [address] Phone Care Team Providers Care Automation Architect Name Role Phone Sal Jose MD Primary Care Provider [phone] Allergies Active Allergy Reactions Criticality Noted Date [...] EDT Follow Up Cardiovascular Medicine at [address] [place] [address] Mike Hilario MD NSVT (nonsustained ventricular tachycardia) (HC Code) (HC CODE) (Primary Dx); Chronic ischemic right MCA stroke; Aneurysm of middle cerebral artery; Scleroderma (HC CODE); ILD (interstitial lung disease) (HC Code) (HC CODE); History of pulmonary embolism 04/28/2025 1:45 PM EDT Office Visit [facility] [address] [facility] [place] [address] Kristine Kelly MD PhD Chronic ischemic right MCA stroke (Primary Dx); Occlusion of right middle cerebral artery; Carotid atherosclerosis, bilateral; NSVT (nonsustained ventricular tachycardia) (HC Code) ; Internal carotid artery stent present; Obstructive sleep apnea of adult; Impaired vision in both eyes; Vitamin B 12 deficiency; Aneurysm of middle cerebral artery (HC CODE) 03/08/2025 12:00 PM EDT Follow Up [facility] [address] [place] [address] Ramon Nixon MD Mild persistent asthma with [...] 800 [facility] [address] [place] [address] Virgie Mast MD PhD [address] [place] [phone] 08/09/2025 1:00 PM EST Office Visit [facility] 136 [facility] [address] [place], [place] [id number] Ramon Nixon MD 136 [facility] [address] [place] [phone] Ksenia Jain, 05/04/2026 1:45 PM EDT Office Visit [facility] [address] [place] [address] Kristine Kelly MD PhD [address] [place] [phone] 05/09/2026 1:00 PM EDT Follow Up Cardiovascular Medicine at 175 [facility] 175 [facility] [place]IRD [place], [place] [address] Mike Hilario MD 175 [facility] [address] [place] [phone] Health Maintenance Due Date Last Done Comments [...] QTC Interval 446 ms SRC EKG P [place] 65 deg SRC EKG QRS [place] 25 deg SRC EKG T Wave [place] 41 deg SRC EKG P-R Interval 162 [...] - 144 mmol/L 07/23/2024 3:09 PM EST [facility] Potassium 4.2 3.3 - 5.3 mmol/L 07/23/2024 3:09 PM EST [facility] Chloride 105 98 - 107 mmol/L 07/23/2024 3:09 PM EST [facility] CO2 26 20 - 30 mmol/L 07/23/2024 3:09 PM EST [facility] Anion Gap 13 7 - 17 07/23/2024 3:09 PM EST [facility] Glucose 89 70 - 100 mg/dL 07/23/2024 3:09 PM [facility] DEPARTMENT OF LABORATORY MEDICINE BUN 13 8 - 23 mg/dL 07/23/2024 3:09 PM [facility] DEPARTMENT OF LABORATORY MEDICINE Creatinine 0.72 0.40 - 1.30 mg/dL 07/23/2024 3:09 PM [facility] DEPARTMENT OF LABORATORY MEDICINE Calcium 9.7 8.8 - 10.2 mg/dL 07/23/2024 3:09 PM [facility] DEPARTMENT OF LABORATORY MEDICINE BUN/Creatinine Ratio 18.1 8.0 - 23.0 07/23/2024 3:09 PM [facility] DEPARTMENT OF LABORATORY MEDICINE Total Protein 6.7 5.9 - 8.3 g/dL 024 3:09 PM [facility] DEPARTMENT OF LABORATORY MEDICINE Comment:As of 2023, th e reference interval for Total Protein has been changed from (6.6 to 8.7 g/dL) to (5.9 to 8.3 g/dL). Albumin 4.3 3.6 - 5.1 g/dL 07/23/2024 3:09 PM [facility] DEPARTMENT OF LABORATORY MEDICINE Comment:As of 2023, th e reference interval for Albumin has been changed from (3.6 to 4.9 g/dL) to (3.6 to 5.1 g/dL). Total Bilirubin 0.6 <=1.2 mg/dL 07/23/20 24 3:09 PM [facility] DEPARTMENT OF LABORATORY MEDICINE Alkaline Phosphatase 113 9 - 122 U/L 07/23/2024 3:09 PM [facility] DEPARTMENT OF LABORATORY MEDICINE Alanine Aminotransferase (ALT) 27 10 - 35 U/L 07/23/2024 3:09 PM [facility] DEPARTMENT OF LABORATORY MEDICINE Comment:Calcium dobesilate c an cause artificially low ALT results at therapeutic concentrations Aspartate Aminotransferase (AST) 23 10 - 35 U/L 07/23/2024 3:09 PM [facility] DEPARTMENT OF LABORATORY MEDICINE Globulin 2.4 2.0 - 3.9 g/dL 07/23/2024 3:09 PM [facility] DEPARTMENT OF LABORATORY MEDICINE Comment:As of 2023, th e reference interval for Globulin has been changed from (2.3 to 3.5 g/dL) to (2.0 to 3.9 g/dL). A/G Ratio 1.8 1.0 - 2.2 07/23/2024 3:09 PM [facility] DEPARTMENT OF LABORATORY MEDICINE AST/ALT Ratio 0.9 Reference Range Not Established 07/23/2024 3:09 PM [facility] DEPARTMENT OF LABORATORY MEDICINE eGFR (Creatinine) >60 >=60 mL/min/1.73m2 07/23/2024 3:09 PM [facility] DEPARTMENT OF LABORATORY MEDICINE Comment: [facility] utilizes CKD-EPI Creatinine 2020 to report eGFR. Values < 60 mL/min/1.73 m2 may indicate CKD if present for more than three months AND creatinine is at steady state. The eGFR provides a rough estimate of kidney function. For further guidance, please refer to the CKD: Adult Electric Motor Winders Assembler Signature pathway. Creatinine Delta 0.01 See Comment 3:09 PM [facility] DEPARTMENT OF LABORATORY MEDICINE Comment: Delta creatinine [...] [facility] [address] [place] [address] [phone] from Last 3 Months or Most Recently Relevant to Health Maintenance [place] [address] [id number] MEDICA[place] [address] [address] [id number] MEDICAID [place]IC[place] [address] [address] [facility] 1-D [place] [address] [id number] MEDICAID MEDICARE 1-D [place] [address] [facility] Care Teams Automation Architect Relationship Specialty Start Date End Date Sal Jose MD [address] [facility] [address] [place] [phone] PCP - General Family Medicine 10/16/23
--- OUTSIDE RECORDS SUMMARY | 2025-05-30 15:20 | XMS_ITS | Encounter Summary ---
Author Organization [facility] and [facility] Address [address] [place] [phone] Care Team Providers Care Cash Sales Audit Clerk Name Role Phone Sal Jose MD Primary Care Provider Encounter Details Date Type Department Care Team (Late Contact Info) Description 10/28/2023 Scanned Document [facility] at [address] [place] [address] Joao Loredo MD [address] [place] [address] [phone] Social History Tobacco Use Types Packs/Day Years [...] Office Visit [facility] at [address] [place] [phone] Virgie Mast MD PhD [address] [place] [address] [phone] 08/09/2025 1:00 PM EST Office [place] [address] [place] [address] [address] [place] [address] Ramon Nixon MD 136 [facility] [address] [place] [address] Cristobal Ksenia Carroll, RT 05/04/2026 1:45 PM EDT Office Visit Stroke 800 [facility] [place] [address] Kristine Kelly MD PhD 800 [facility] [place] [address] 05/09/2026 1:00 PM EDT Follow Up Cardiovascular Medicine at 175 [facility] 175 [facility] [place] [address] Mike Hilario MD 175 [facility] [address] [place] [address] documented as of this encounter Procedures Procedure [...] MRI Result Scan (05/12/2020 11:48 AM EDT) [facility] Provider IMG SCAN REPORTS Final Resul t * MRI Result Scan (04/12/2020 12:01 PM EDT) Historical Provider IMG SCAN REPORTS Final Resul t * MRI Result Scan (04/12/2020 11:55 AM EDT) Result [facility] Historical Provider IMG SCAN REPORTS Final Resul t * MRI Result Scan (04/08/2020 12:04 PM EDT) Result [facility] Provider IMG SCAN REPORTS Final Resul t * CT Result Scan (02/25/2020 12:11 PM EDT) Historical Provider IMG SCAN REPORTS Final Resul t * MRI Result Scan (02/01/2020 12:16 PM EDT) Historical Provider IMG SCAN REPORTS Final Resul t * CT Result Scan (12/25/2018 12:21 PM EDT) [facility] Provider [...] Result Scan (02/13/2012 12:38 PM EDT) Result [facility] Provider IMG SCAN REPORTS Final Resul t * CT Result Scan (12/17/2010 1:03 PM EDT) Result [facility] Provider IMG SCAN REPORTS Final Resul t * CT Result Scan (12/17/2010 1:00 PM EDT) Result [facility] Provider IMG SCAN REPORTS Final Resul t * CT Result Scan (12/17/2010 12:56 PM EDT) Result [facility] Provider IMG SCAN REPORTS Final Resul t * CT Result Scan (12/17/2010 12:52 PM EDT) Result [facility] Provider IMG SCAN REPORTS Final Resul t * CT Result Scan (12/17/2010 12:46 PM EDT) Result [facility] Provider IMG SCAN REPORTS Final Resul t * CT Result Scan (12/17/2010 12:41 PM EDT) Result [facility] Provider IMG SCAN REPORTS Final Resul t documented in this encounter Visit Diagnoses Not on filedocumented in this encounter Care Teams Cash Sales Audit Clerk Relationship Specialty Start Date End Date Sal Jose MD [address] [place] [phone] PCP - General Family Medicine 10/16/23 documented as of this encounter
--- OUTSIDE RECORDS SUMMARY | 2025-05-30 15:20 | XMS_ITS | Encounter Summary ---
Author Organization [facility] and [facility] Address [address] [place] [phone] Care Team Providers Care Regulatory Affairs Assistant Name Role Phone Sal Jose MD Primary Care Provider Encounter Details Date Type Department Care Team (Late Contact Info) Description 10/28/2023 Scanned Document [facility] at [address] [place] [address] Joao Loredo MD [address] [place] [address] [phone] Social History Tobacco Use Types Packs/Day Years [...] Office Visit [facility] at [address] [place] [phone] Virgie Mast MD PhD [address] [place] [address] [phone] 08/09/2025 1:00 PM EST Office [place] [address] [place] [address] [address] [place] [address] Ramon Nixon MD 136 [facility] [address] [place] [address] Ksenia Jain, RT 05/04/2026 1:45 PM EDT Office Visit Stroke [address] [facility] [place] [address] Kristine Kelly MD PhD 800 [place] [address] 05/09/2026 1:00 PM EDT Follow Up Cardiovascular Medicine at 175 [facility] 175 [facility] [place] [address] Mike Hilaroi MD 175 [facility] [address] [place] [address] documented as of this encounter Procedures Procedure [...] Result Scan (02/06/2022 11:26 AM EDT) Result [facility] Provider IMG SCAN REPORTS Final Resul t documented in this encounter Visit Diagnoses Not on filedocumented in this encounter Care Teams Regulatory Affairs Assistant Relationship Specialty Start Date End Date Sal Jose MD 1033 [facility] [address] [place] [phone] PCP - General Family Medicine 10/16/23 documented as of this encounter
--- OUTSIDE RECORDS SUMMARY | 2025-05-30 15:20 | XMS_ITS | Encounter Summary ---
Author Organization [facility] and [facility] Address [address] [place] [phone] Care Team Providers Care Railroad Brakeman Name Role Phone Sal Jose MD Primary Care Provider [phone] Encounter Details Date Type Department Care Team (Late Contact Info) Description 08/31/2024 Transcribed Orders [facility] Specimens 55 [place], [place] [address] System, Provider Not In CRST syndrome (HC [...] & Seizures at 800 [facility] 800 [place], [place] [address] Virgie Mast MD PhD [address] [place] [phone] 08/09/2025 1:00 PM EST Office Visit Pulmonary Critical [place] 136 [facility] [address] [place] [address] Ramon Nixon MD 136 [facility] 302 [place] [address] Ksenia Jain, RT 05/04/2026 1:45 PM EDT Office Visit Stroke 800 [facility] [place] [address] Kristine Kelly MD PhD 800 [place] [phone] 05/09/2026 1:00 PM EDT Follow Up Cardiovascular Medicine at 175 [facility] 175 [facility] [place] [address] Mike Hilario MD 175 [facility] [address] 2 [place] [address] Scheduled Orders Name Type Priority Associated Diagnoses [...] documented as of this encounter Care Teams Railroad Brakeman Relationship Specialty Start Date End Date Sal Jose MD [address] [place] [address] PCP - General Family Medicine 10/16/23 documented as of this encounter
== END 2025-05-30 13:00 | disposition home or self-care (01) ==
LOC: HO.HWS 11:54
PROVIDERS: PCP Family Medicine; Visit Provider Obstetrics & Gynecology
DX: N95.0 Postmenopausal bleeding (principal)
CPT/HCPCS: 99203

== ENCOUNTER 2025-06-10 13:07 | Outpatient (REF) | payer MEDICARE, MEDICAID, SELFPAY ==
--- OUTSIDE RECORDS SUMMARY | 2025-06-01 03:30 | XMS_ITS ---
Author Organization [facility] Address [address] [place] [phone] Care Team Providers Care Sales Operations Name Role Phone Jayant Walker Primary Care Provider Unavailab Venkatesh Moss [facility] [phone] REASON FOR VISIT screening,egd Encounters Encounter Location Date Provider Diagnosis [facility] [address] [place], [place] [phone] 06/01/2025 Venkatesh Marsh Plan Of Treatment No Information Progress Notes * CAMILA TORRESOB:[birth year] (64 yo F)Acc No.[id number]:06/01/2025 EGD and COL/MAC Patient: Savanah SNYDERROMAN RUTHERFORD Provider: Sharonda Marsh MD :1960 A ge:64 Y S ex:Female Date:06/01/2025 Address:[address] [place] [address] [facility] Pcp:Jayant Walker Subjective: * Chief Complaints: * [...] MD Date: Generated for Sommer francis/Elvia/Mercyitting on: 08/10/2024 03:16 PM EST
--- NOTE | ~2025-06-10 | US_ITS ---
EXAMINATION: US PELVIS TRANSABDOMINAL AND TRANSVAGINAL HISTORY: N95.0 - Postmenopausal bleeding COMPARISON: There are no prior studies available for comparison. TECHNIQUE: Transabdominal and transvaginal ultrasound was performed. FINDINGS: LMP:Postmenopausal Uterus: The uterus is normal in size, measuring 7 x 1.9 x 3.4 cm. Myometrium has a normal echotexture. Heterogeneous echotexture of the uterine parenchyma.. Small echogenic foci suggesting calcifications adjacent to the endometrium. Endometrium: The endometrial stripe measures 1 mm in thickness. Right ovary: Not visualized. Left ovary: Not visualized. Pelvic fluid: none. Dilated left pelvic vessels, question pelvic congestion. US/US pelvic and transvaginal IMPRESSION: * Postmenopausal patient. Endometrial stripe measures 1 mm in thickness. * Possible small calcification adjacent to the endometrium * Bilateral ovaries not visualized * Dilated vessels in the pelvis, question pelvic congestion syndrome Electronically signed by: Willi Godoy MD 06/10/2025 02:01 PM [facility]
--- OUTSIDE RECORDS SUMMARY | 2025-06-10 15:16 | XMS_ITS | Encounter Summary ---
Author Organization [facility] and [facility] Address [address] [place] [address] Care Team Providers Care Railroad Construction Director Name Role Phone Sal Jose MD Primary Care Provider Encounter Details Date Type Department Care Team (Late Contact Info) Description 10/28/2023 Scanned Document [facility] at [address] [place] [address] Joao Loredo MD [address] [place] [phone] Social History Tobacco Use Types Packs/Day Years [...] Visit [facility] at [address] [place] [address] Virgie Mast MD PhD [address] [place] [phone] 08/09/2025 1:00 PM EST Office [place] [address] [place] [address] [address] [place] [address] Ramon Nixon MD 136 [facility] [address] 302 [place] [address] Ksenia Jain, RT 05/04/2026 1:45 PM EDT Office Visit Stroke 800 [facility] [place] [address] Kristine Kelly MD PhD 800 [place] [address] 05/09/2026 1:00 PM EDT Follow Up Cardiovascular Medicine at 175 [facility] 175 [facility] [place] [address] Mike Hilario MD 175 [facility] Fl 2 [place] [address] documented as of this encounter Procedures Procedure [...] Result Scan (02/06/2022 11:26 AM EDT) Result [facility] Provider IMG SCAN REPORTS Final Resul t documented in this encounter Visit Diagnoses Not on filedocumented in this encounter Care Teams Railroad Construction Director Relationship Specialty Start Date End Date Sal Jose MD 1033 [facility] [address] [place] [phone] PCP - General Family Medicine 10/16/23 documented as of this encounter
--- OUTSIDE RECORDS SUMMARY | 2025-06-10 15:16 | XMS_ITS | Encounter Summary ---
Author Organization [facility] Address Unknown Care Team Providers Care Executive Vice President Business Development Name Role Phone Sal Jose MD Primary Care Provider [phone] Encounter Details Date Type Department Care Team (Late st Contact Info) Description 05/11/2024 Scanned Document [place] Critical [place] 136 [facility] [address] [place], [place] [address] Ramon Nixon MD 136 [facility] 302 [place] [phone] Social History Tobacco Use Types Packs/Day Years [...] at 800 [facility] 800 [place] [address] Virgie Mast MD PhD [address] [place], [place] [address], [place] [phone] 08/09/2025 1:00 PM EST Office Visit [place] 136 [facility] [address] [place] [address] Ramon Nixon MD 136 [facility] [address] 302 [place] [phone] Cristobal Ksenia [place], RT 05/04/2026 1:45 PM EDT Office Visit Stroke 800 [facility] [place] [address] Kristine Kelly MD PhD 800 [facility] [place] [phone] 05/09/2026 1:00 PM EDT Follow Up Cardiovascular Medicine at 175 [facility] 175 [facility] [place] [address] Mike Hilario MD 175 [facility] [address] 2 [place] [phone] documented as of this encounter Visit Diagnoses Not on filedocumented in this encounter Additional Health Concerns Assessment Noted Time PHQ-9 Depression Total Score: 0 04/07/20 2:31 PM EDT documented as of this encounter Care Teams Executive Vice President Business Development Relationship Specialty Start Date End Date Sal Jose MD [facility] [address] [address] PCP - General Family Medicine 10/16/23 documented as of this encounter
--- OUTSIDE RECORDS SUMMARY | 2025-06-10 15:16 | XMS_ITS | Encounter Summary ---
Author Organization [facility] Address [address] [address] Phone Care Team Providers Care Manager Estate Name Role Phone Sal Jose MD Primary Care Provider [phone] Encounter Details Date Type Department Care Team (Late Contact Info) Description 05/25/2024 Scanned Document [facility] - [address] [address] Nain Cat MD [address] [place] [phone] Social History Tobacco Use Types Packs/Day [...] & Seizures at 800 [facility] 800 [facility] [place] [address] Virgie Mast MD PhD 800 [place] [phone] 08/09/2025 1:00 PM EST Office Visit [place] 136 [facility] [address] [place], [place] [address] Ramon Nixon MD 136 [facility] [address] 302 [place] [address] Ksenia Jain, RT 05/04/2026 1:45 PM EDT Office Visit Stroke 800 [facility] [place] [address] Kristine Kelly MD PhD 800 [place] [phone] 05/09/2026 1:00 PM EDT Follow Up Cardiovascular Medicine at 175 [facility] 175 [facility] THIRD FLOOR [place], [place] [address] Mike Hilario MD 175 [facility] 2 [place] [phone] documented as of this encounter Visit Diagnoses Not on filedocumented in this encounter Additional Health Concerns Assessment Noted Time PHQ-9 Depression Total Score: 0 04/07/20 2:31 PM EDT documented as of this encounter Care Teams Manager Estate Relationship Specialty Start Date End Date Sal Jose MD [facility] [address] [phone] PCP - General Family Medicine 10/16/23 documented as of this encounter
--- OUTSIDE RECORDS SUMMARY | 2025-06-10 15:16 | XMS_ITS | Encounter Summary ---
Author Organization [facility] and [facility] Address [address] [place] [place] [address] Care Team Providers Care Program Clinician Name Role Phone Sal Jose MD Primary Care Provider [phone] Encounter Details Date Type Department Care Team (Late Contact Info) Description 10/28/2023 Scanned Document [facility] SCHEDULING 25 [place], [place] [address] Provider, Historical . Social History Tobacco Use [...] Office Visit Epilepsy & Seizures at 800 [facility] 800 [facility] [place] [address] Virgie Mast MD PhD 800 [place] [phone] 08/09/2025 1:00 PM EST Office Visit [place] 136 [facility] [address] [place], [place] [address] Ramon Nixon MD [address] [place] [address] 302 [place] [address] SoaresZakiKsenia, RT 05/04/2026 1:45 PM EDT Office Visit Stroke 800 [facility] [place] [address] Kristine Kelly MD PhD 800 [place] [address] 05/09/2026 1:00 PM EDT Follow Up Cardiovascular Medicine at 175 [facility] 175 [facility] THIRD FLOOR [place], [place] [address] Mike Hilario MD 175 [facility] [address] 2 [place] [address] documented as of this encounter Procedures Procedure [...] on filedocumented in this encounter Care Teams Program Clinician Relationship Specialty Start Date End Date Sal Jose MD [facility] [address] [place] [phone] PCP - General Family Medicine 10/16/23 documented as of this encounter
--- OUTSIDE RECORDS SUMMARY | 2025-06-10 15:16 | XMS_ITS | Encounter Summary ---
Author Organization [facility] and [facility] Address [address] [place] [address] Care Team Providers Care Emulsification Operator Name Role Phone Sal Jose MD Primary Care Provider [phone] Encounter Details Date Type Department Care Team (Late st Contact Info) Description 10/17/2023 Scanned Document [facility] 800 [place], [place] 54[address] Kristine Kelly MD PhD [address] [place] [phone] Social History Tobacco Use Types Packs/Day [...] 800 [facility] 800 [place], [place] 111[address]69 Virgie Mast MD PhD 800 [place] [phone] 08/09/2025 1:00 PM EST Office Visit [place]monary Critical [place] 136 [facility] [address] [place] [address] Ramon Nixon MD 136 [facility] [address] 302 [place] [address] Ksenia Jain, RT 05/04/2026 1:45 PM EDT Office Visit Stroke 800 [facility] [place] [address] Kristine Kelly MD PhD 800 [place] [phone] 05/09/2026 1:00 PM EDT Follow Up Cardiovascular Medicine at 175 [facility] 175 [facility] [place] [address] Mike Hilario MD 175 [facility] [address] 2 [place] [phone] documented as of this encounter Visit Diagnoses Not on filedocumented in this encounter Care Teams Emulsification Operator Relationship Specialty Start Date End Date Sal Jose MD [address] [phone] PCP - General Family Medicine 10/16/23 documented as of this encounter
--- OUTSIDE RECORDS SUMMARY | 2025-06-10 15:16 | XMS_ITS | Encounter Summary ---
Author Organization [facility] and [facility] Address [address] [place] [address] Care Team Providers Care Leg Assembler Name Role Phone Sal Jose MD Primary Care Provider [phone] Encounter Details Date Type Department Care Team (Late Contact Info) Description 10/27/2023 Scanned Document [facility] SCHEDULING 25 [place], [place] [address] Provider, Historical . Social History Tobacco Use [...] Office Visit Epilepsy & Seizures at 800 [facility] 800 [facility] [place] [address] Virgie Mast MD PhD 800 [place] [phone] 08/09/2025 1:00 PM EST Office Visit [place] 136 [facility] [address] [place], [place] [address] Ramon Nixon MD [address] [place] [address] 302 [place] [address] Ksenia Jain, RT 05/04/2026 1:45 PM EDT Office Visit Stroke 800 [facility] [place] [address] Kristine Kelly MD PhD 800 [place] [phone] 05/09/2026 1:00 PM EDT Follow Up Cardiovascular Medicine at 175 [facility] 175 [facility] THIRD FLOOR [place], [place] [address] Mike Hilario MD 175 [facility] 2 [place] [address] documented as of this encounter Visit Diagnoses Not on filedocumented in this encounter Care Teams Leg Assembler Relationship Specialty Start Date End Date Sal Jose MD 1033 [facility] [address] [place] [phone] PCP - General Family Medicine 10/16/23 documented as of this encounter
--- OUTSIDE RECORDS SUMMARY | 2025-06-10 15:16 | XMS_ITS | Encounter Summary ---
Author Organization [facility] Address [address] [place] [phone] Care Team Providers Care Inside Steward/Stewardess Name Role Phone Sal Jose MD Primary Care Provider Reason for Visit * Reason Onset Date Comments Holter/Event Monitor 11/13/2023 Trying to E nroll Pt for MCT monitor Encounter Details Date Type Department Care Team (Late st Contact Info) Description 11/13/2023 Telephone [facility] Stroke 800 [place], [place] 4520[address] Kristine Kelly MD PhD 800 [place] [phone] Holter/Event Monitor (Trying to Enroll Pt for [...] Visit [facility] Ep[facility] Seizures at 800 [facility] 800 [facility] [place] [address] Virgie Mast MD PhD 800 [place] [phone] 08/09/2025 1:00 PM EST Office Visit Pulmonary Critical [place] [address] 492[address] Ramon Nixon MD [address] [place] [address] [place] [address] Ksenia Jain Carly, RT 05/04/2026 1:45 PM EDT Office Visit Stroke 800 [facility] [place] [address] Kristine Kelly MD PhD 800 [place] [phone] 05/09/2026 1:00 PM EDT Follow Up Cardiovascular Medicine at 175 [facility] 175 [facility] THIRD FLOOR [place], [place] [address] Mike Hilario MD 175 [facility] 2 [place] [address] documented as of this encounter Visit Diagnoses Not on filedocumented in this encounter Care Teams Inside Steward/Stewardess Relationship Specialty Start Date End Date Sal Jose MD 1033 [facility] [address] [place] [phone] PCP - General Family Medicine 10/16/23 documented as of this encounter
--- OUTSIDE RECORDS SUMMARY | 2025-06-10 15:16 | XMS_ITS | Encounter Summary ---
Author Organization [facility] Address Unknown Care Team Providers Care Machine Ceramic Coater Name Role Phone Sal Jose MD Primary Care Provider [phone] Encounter Details Date Type Department Care Team (Late st Contact Info) Description 08/27/2023 Scanned Document [facility]monary Critical [place] 136 [facility] 302 [place], [place] [address] External, Provider Social History Tobacco Use Types [...] [facility] [place] [address] Virgie Mast MD PhD 800 [place] [phone] 08/09/2025 1:00 PM EST Office Visit Pulmonary Critical [place] 136 [facility] 302 [place], [place] 5[address] Ramon Nixon MD 136 [facility] 302 [place] [phone] Ksenia Jain, RT 05/04/2026 1:45 PM EDT Office Visit Stroke 800 [facility] [place] [address] Kristine Kelly MD PhD 800 [facility] [place] [address] 05/09/2026 1:00 PM EDT Follow Up Cardiovascular Medicine at 175 [facility] 175 [facility] THIRD [place]LOOR [place], [place] [address] Mike Hilario MD 175 [facility] Fl 2 [place] [phone] documented as of this encounter Procedures Procedure Name Priority Date/Time Associated Diagnosis Comments CARDIAC ECHO RESULT SCAN Routine 08/27/2023 documented in this encounter Results * Cardiac Echo Result Scan (08/27/2023) Provider External CV CARDIAC REPORT (CVR) Final Result documented in this encounter Visit Diagnoses Not on filedocumented in this encounter Care Teams Machine Ceramic Coater Relationship Specialty Start Date End Date Sal Jose MD [address] [phone] PCP - General Family Medicine 10/16/23 documented as of this encounter
--- OUTSIDE RECORDS SUMMARY | 2025-06-10 15:16 | XMS_ITS | Encounter Summary ---
Author Organization [facility] and [facility] Address [address] [place] [address] Care Team Providers Care Com Writer Name Role Phone Sal Jose MD Primary Care Provider [phone] Encounter Details Date Type Department Care Team (Late Contact Info) Description 12/04/2023 Transcribed Orders [facility] Laboratory Specimens 55 [place] [address] System, Provider Not In CREST variant of [...] [facility] [place] [address] Virgie Mast MD PhD 800 [place] [phone] 08/09/2025 1:00 PM EST Office Visit Pulmonary Critical [place] 136 [facility] [address] [place] [address] Ramon Ron MD [address] [place] [address] Ave [address] 302 [place] [address] LavelleKrishna, Ksenia Carroll, RT 05/04/2026 1:45 PM EDT Office Visit Stroke 800 [facility] Lower [place], [place] [address] Kristine Kelly MD PhD 800 [place] [address] 05/09/2026 1:00 PM EDT Follow Up Cardiovascular Medicine at 175 [facility] 175 [facility] [place] [address] Mike Hilario MD 175 [facility] Fl 2 [place] [address] documented as of this encounter Results * Sedimentation rate (ESR) (05/20/2024 12:53 PM EDT) Pathologist [facility] Sedimentation Rate (ESR) 4 0 - 20 mm/hr 05/20/2024 1:59 PM EDT [facility] Blood Venipuncture / Unknown 05/20/2024 12:53 PM EDT 05/20/2024 1:31 PM EDT us Provider Not In System LAB BLOOD ORDERABLES Evelin smith Result Performing Organization Address City/State/[facility] Co de Phone Number [facility] [address] [place] [address] * (ABNORMAL) C-reactive protein (CRP) (04/15/2024 12:20 PM EDT) CRP, High Sensitivity 3.1(H) See comment mg/L 04/15/2024 3:42 PM EDT [facility] Comment: hs-CRP Risk [...] ORDERABLES Evelin l Result Performing Organization Address [facility] Co de Phone Number [facility] [address] [place] [address] * (ABNORMAL) Sedimentation rate (ESR) (04/15/2024 12:20 PM EDT) Sedimentation Rate (ESR) 24(H) 0 - 20 mm/hr 04/15/2024 3:41 PM EDT [facility] Blood Venipuncture / Unknown 04/15/2024 12:20 PM EDT 04/15/2024 2:54 PM EDT us Provider Not In System LAB BLOOD ORDERABLES Evelin l Result Performing Organization Address [facility] Co de Phone Number [facility] [address] [place] [address] * (ABNORMAL) C-reactive protein (CRP) (03/17/2024 10:36 AM EDT) CRP, High Sensitivity 6.3(H) See comment mg/L 03/17/2024 11:47 AM EDT [facility] Comment: hs-CRP Risk [...] ORDERABLES Evelin l Result Performing Organization Address [facility]/ZIP Co de Phone Number [facility] [address] [place] [address] * (ABNORMAL) Sedimentation rate (ESR) (03/17/2024 10:36 AM EDT) Sedimentation Rate (ESR) 23(H) 0 - 20 mm/hr 03/17/2024 11:46 AM EDT [facility] Blood Venipuncture / Unknown 03/17/2024 10:36 AM EDT 03/17/2024 11:15 AM EDT us Provider Not In System LAB BLOOD ORDERABLES Evelin l Result Performing Organization Address [facility] de Phone Number [facility] [address] [place] [address] * (ABNORMAL) C-reactive protein (CRP) (02/20/2024 3:41 PM EDT) CRP, High Sensitivity 8.9(H) See comment mg/L 02/20/2024 4:36 PM EDT [facility] Comment: hs-CRP Risk [...] ORDERABLES Evelin l Result Performing Organization Address [facility] Co de Phone Number [facility] [address] [place] [address] * Sedimentation rate (ESR) (02/20/2024 3:41 PM EDT) Sedimentation Rate (ESR) 18 0 - 20 mm/hr 02/20/2024 7:04 PM EDT [facility] Blood Venipuncture / Unknown 02/20/2024 3:41 PM EDT 02/20/2024 4:04 PM EDT Provider Not In System LAB BLOOD ORDERABLES Evelin l Result Performing Organization Address [facility] Co de Phone Number [facility] [address] [place] [address] * (ABNORMAL) C-reactive protein (CRP) (12/09/2023 1:52 PM EDT) CRP, High Sensitivity 4.4(H) See comment mg/L 12/09/2023 4:44 PM EDT [facility] Comment: hs-CRP Risk [...] ORDERABLES Evelin l Result Performing Organization Address [facility] Co de Phone Number [facility] [address] [place] [address] * Sedimentation rate (ESR) (12/09/2023 1:52 PM EDT) Sedimentation Rate (ESR) 10 0 - 20 mm/hr 12/09/2023 5:08 PM EDT [facility] Blood Venipuncture / Unknown 12/09/2023 1:52 PM EDT 12/09/2023 4:20 PM EDT us Provider Not In System LAB BLOOD ORDERABLES Evelin l Result [facility] [address] [place] [address] documented in this encounter 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
--- OUTSIDE RECORDS SUMMARY | 2025-06-10 15:16 | XMS_ITS | Encounter Summary ---
Author Organization [facility] and [facility] Address [address] [place] [address] Care Team Providers Care Retail Asset Protection Specialist Name Role Phone Sal Jose MD Primary Care Provider Encounter Details Date Type Department Care Team (Late st Contact Info) Description 08/14/2023 Transcribed Orders EXTERNAL REFERRAL SOURCE [address] [place] [address] Referral, Self Social History Tobacco Use Types [...] 800 [facility] [place] [address] Virgie Mast MD PhD 800 [place] [phone] 08/09/2025 1:00 PM EST Office Visit Pulmonary Critical [place] 136 [facility] 302 [place], [place] [address] Ramon Nixon MD [address] [place] [address] 302 [place] [address] Ksenia Jain, RT 05/04/2026 1:45 PM EDT Office Visit Stroke 800 [facility] Lower Level [place], [place] [address] Kristine Kelly MD PhD 800 [place] [phone] 05/09/2026 1:00 PM EDT Follow Up Cardiovascular Medicine at 175 [facility] 175 [facility] THIRD FLOOR [place], [place] [address] Mike Hilario MD 175 [facility] Fl 2 [place] [phone] documented as of this encounter Visit Diagnoses Not on filedocumented in this encounter Care Teams Retail Asset Protection Specialist Relationship Specialty Start Date End Date Sal Jose MD [address] [phone] PCP - General Family Medicine 10/16/23 documented as of this encounter
--- OUTSIDE RECORDS SUMMARY | 2025-06-10 15:16 | XMS_ITS | Encounter Summary ---
Author Organization [facility] and [facility] Address 20 [place] [address] Care Team Providers Care Mining And Quarrying Machinery Repairer Name Role Phone Sal Jose MD Primary Care Provider Encounter Details Date Type Department Care Team (Late st Contact Info) Description 08/13/2023 Scanned Document EXTERNAL REFERRAL SOURCE [address] [place] [address] External, Provider Social History Tobacco Use Types [...] 800 [facility] [place] [address] Virgie Mast MD PhD 800 [place] [phone] 08/09/2025 1:00 PM EST Office Visit Pulmonary Critical [place] 136 [facility] 302 [place], [place] [address] Ramon Nixon MD [address] [place] [address] 302 [place] [phone] Ksenia Jain, RT 05/04/2026 1:45 PM EDT Office Visit Stroke 800 [facility] Lower Level [place], [place] [address] Kristine Kelly MD PhD 800 [place] [phone] 05/09/2026 1:00 PM EDT Follow Up Cardiovascular Medicine at 175 [facility] 175 [facility] THIRD FLOOR [place], [place] [address] Mike Hilario MD 175 [facility] Fl 2 [place] [phone] documented as of this encounter Visit Diagnoses Not on filedocumented in this encounter Care Teams Mining And Quarrying Machinery Repairer Relationship Specialty Start Date End Date Sal Jose MD [address] [phone] PCP - General Family Medicine 10/16/23 documented as of this encounter
--- OUTSIDE RECORDS SUMMARY | 2025-06-10 15:16 | XMS_ITS | Encounter Summary ---
Author Organization [facility] and [facility] Address [address] [place] [address] Care Team Providers Care Mens Locker Room Attendant Name Role Phone Sal Jose MD Primary Care Provider [phone] Encounter Details Date Type Department Care Team (Late Contact Info) Description 07/21/2024 Transcribed Orders [facility] Laboratory Specimens 55 [place], [place] [address] System, Provider Not In CRST syndrome (HC [...] & Seizures at 800 [facility] 800 [place], [place] [address] Virgie Mast MD PhD [address] [place] [phone] 08/09/2025 1:00 PM EST Office Visit Pulmonary Critical [place] 136 [facility] [address] [place], [place] [address] Ramon Nixon MD 136 [facility] 302 [place] [phone] Ksenia Jain, RT 05/04/2026 1:45 PM EDT Office Visit Stroke 800 [facility] Lower [place], [place] [address] Kristine Kelly MD PhD 800 [place] [phone] 05/09/2026 1:00 PM EDT Follow Up Cardiovascular Medicine at 175 [facility] 175 [facility] THIRD FLOOR [place], [place] [address] Mike Hilario MD 175 [facility] [address] 2 [place] [phone] documented as of this encounter Results * Sedimentation rate (ESR) (07/23/2024 1:13 PM EST) Sedimentation Rate (ESR) 12 0 - 20 mm/hr 07/23/2024 2:55 PM EST [facility]PART[facility]ATORY MEDICINE Blood Venipuncture / Unknown 07/23/2024 1:13 PM EST 07/23/2024 2:24 PM EST us Provider Not In System LAB BLOOD ORDERABLES Evelin smith Result [facility] DEPART[facility] LABORATORY MEDICINE [address] [place] [address] documented in this encounter Visit Diagnoses Diagnosis 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
--- OUTSIDE RECORDS SUMMARY | 2025-06-10 15:16 | XMS_ITS | Encounter Summary ---
Author Organization [facility] Address [address] [place] [address] Care Team Providers Care Sanitary Plumber Name Role Phone Sal Jose MD Primary Care Provider Encounter Details Date Type Department Care Team (Late Contact Info) Description 10/28/2023 Scanned Document [facility] at [address] [place] [address] Joao Loredo MD [address] [place] [phone] Social History Tobacco Use Types Packs/Day Years [...] Office Visit [facility] at [address] [place] [phone] Virgie Mast MD PhD [address] [place] [phone] 08/09/2025 1:00 PM EST Office Visit [facility]monary Critical [place] [address] [place] [address] [address] [place] [address] Ramon Nixon MD 136 [facility] [address] 302 [place] [address] Ksenia Jain, RT 05/04/2026 1:45 PM EDT Office Visit Stroke 800 [facility] [place] [address] Kristine Kelly MD PhD 800 [place] [phone] 05/09/2026 1:00 PM EDT Follow Up Cardiovascular Medicine at 175 [facility] 175 [facility] THIRD FLOOR [place], [place] [address] Mike Hilario MD 175 [facility] [address] 2 [place] [phone] documented as of this encounter Visit Diagnoses Not on filedocumented in this encounter Care Teams Sanitary Plumber Relationship Specialty Start Date End Date Sal Jsoe MD [address] [phone] PCP - General Family Medicine 10/16/23 documented as of this encounter
--- OUTSIDE RECORDS SUMMARY | 2025-06-10 15:16 | XMS_ITS | Encounter Summary ---
Author Organization [facility] Address [address] [place] [phone] Care Team Providers Care Basting Puller Name Role Phone Sal Jose MD Primary Care Provider Encounter Details Date Type Department Care Team (Late Contact Info) Description 10/28/2023 Scanned Document [facility] at [address] [place] [address] Joao Loredo MD [address] [place] [phone] Social History Tobacco Use Types Packs/Day Years [...] Office Visit [facility] at [address] [place] [phone] Virgie Mast MD PhD [address] [place] [phone] 08/09/2025 1:00 PM EST Office Visit Pulmonary Critical [place] [address] [place] [address] [address] [place] [address] Ramon Nixon MD 136 [facility] [address] [place] [address] Cristobal Ksenia Carroll, RT 05/04/2026 1:45 PM EDT Office Visit Stroke 800 [facility] [place] [address] Kristine Kelly MD PhD [address] [place] [address] 05/09/2026 1:00 PM EDT Follow Up Cardiovascular Medicine at 175 [facility] 175 [facility] [place] [address] Mike Hilario MD 175 [facility] [address] [place] [address] documented as of this encounter Procedures Procedure [...] MRI Result Scan (05/12/2020 11:48 AM EDT) [facility] Provider IMG SCAN REPORTS Final Resul t * MRI Result Scan (04/12/2020 12:01 PM EDT) Historical Provider IMG SCAN REPORTS Final Resul t * MRI Result Scan (04/12/2020 11:55 AM EDT) Result [facility] Historical Provider IMG SCAN REPORTS Final Resul t * MRI Result Scan (04/08/2020 12:04 PM EDT) Result [facility] Provider IMG SCAN REPORTS Final Resul t * CT Result Scan (02/25/2020 12:11 PM EDT) Historical Provider IMG SCAN REPORTS Final Resul t * MRI Result Scan (02/01/2020 12:16 PM EDT) Historical Provider IMG SCAN REPORTS Final Resul t * CT Result Scan (12/25/2018 12:21 PM EDT) [facility] Provider IMG SCAN REPORTS Final Resul t * CT Result Scan (08/25/2015 12:26 PM EST) Historical Provider IMG SCAN REPORTS Final Resul t * CT Result Scan (09/28/2012 12:30 PM EST) Historical Provider IMG SCAN REPORTS Final Resul t * CT Result Scan (09/07/2012 12:34 PM EST) [facility] Provider IMG SCAN REPORTS Final Resul t * CT Result Scan (02/13/2012 12:38 PM EDT) Result [facility] Provider IMG SCAN REPORTS Final Resul t * CT Result Scan (12/17/2010 1:03 PM EDT) Result [facility] Provider IMG SCAN REPORTS Final Resul t * CT Result Scan (12/17/2010 1:00 PM EDT) Result [facility] Provider IMG SCAN REPORTS Final Resul t * CT Result Scan (12/17/2010 12:56 PM EDT) Result [facility] Provider IMG SCAN REPORTS Final Resul t * CT Result Scan (12/17/2010 12:52 PM EDT) Result [facility] Provider IMG SCAN REPORTS Final Resul t * CT Result Scan (12/17/2010 12:46 PM EDT) Result [facility] Provider IMG SCAN REPORTS Final Resul t * CT Result Scan (12/17/2010 12:41 PM EDT) Result [facility] Provider IMG SCAN REPORTS Final Resul t documented in this encounter Visit Diagnoses Not on filedocumented in this encounter Care Teams Basting Puller Relationship Specialty Start Date End Date Sal Jose MD [address] [place] [phone] PCP - General Family Medicine 10/16/23 documented as of this encounter
--- OUTSIDE RECORDS SUMMARY | 2025-06-10 15:16 | XMS_ITS | Patient Health Record ---
Author Organization [facility] Address [address] [place] [phone] Care Team Providers Care Watch Inspector Name Role Phone Jayant Walker Primary Care Provider Venkatesh Mauro [phone] Allergies Allergen (clinical drug ingredient) Drug/Non Drug [...] Status Risk Notes Problem Colon cancer screening (639436835) Colon cancer screening (Z12.11) Active confirmed Problem Irregular bowel habits (454962768) Irregular bowel habits (R19.8) Active confirmed Problem Long-term current use of anticoagulant (188259212) Anticoagulant long-term use (Z79.01) Active confirmed Problem Systemic sclerosis (84557100) 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) Active confirmed Problem Gastroesophageal reflux disease (800361298) GERD without esophagitis (K21.9) Active confirmed Problem History of polyp of colon (situation) (230552054) History of colon polyps (Z86.0100) Active confirmed [...] N/A Encounters Encounter Location Date Provider Diagnosis [facility] [address] [place] [phone] 02/08/2025 Venkatesh Marsh History of colon gely yps Z86.0100 ; GERD without esophagitis K21.9 ; Colon cancer screening Z12.11 ; Anticoagulant long-term use Z79.01 ; Irregular bowel habits R19.8 and Scleroderma of esophagus M34.1 [facility] [address] [place] [phone] 02/08/2025 Venkatesh Marsh [facility] [address] [place] [address] 04/21/2025 Venkatesh Marsh Assessments Encounter Date Diagnosis [...] to speak with her stroke doctor at [place] who prescribes her clopidogrel so as to be sure that is not contraindicated from their standpoint. I did recommend a follow-up upper endoscopy given the description of her previous endoscopies and recommendations from her team psychologist in [place], [place]. She is not having any [...] but was advised to speak with her [place] physicians about those recommendations to be sure there is no contraindication to them. I advised her that she might need Lovenox for bridging while off the clopidogrel and pentoxifylline. However, I advised her that would be up to the physicians at [facility] [place]. These procedures will be scheduled for her [...] summaries of her medical issues from the [place] physician such that we can share them with the medical staff and anesthesiologist at [facility] prior to her procedures. If it turns out that her [place] physicians do not think she is stable [...] to speak with her stroke doctor at [facility] [place] who prescribes her clopidogrel so as to be sure that is not contraindicated from their standpoint. I did recommend a follow-up upper endoscopy given the description of her previous endoscopies and recommendations from her team psychologist in [place], [place]. She is not having any [...] but was advised to speak with her [place] physicians about those recommendations to be sure there is no contraindication to them. I advised her that she might need Lovenox for bridging while off the clopidogrel and pentoxifylline. However, I advised her that would be up to the physicians at [place]. These procedures will be scheduled for her [...] summaries of her medical issues from the [place] physician such that we can share them with the medical staff and anesthesiologist at [facility] prior to her procedures. If it turns out that her [place] physicians do not think she is stable [...] to speak with her stroke doctor at [place] who prescribes her clopidogrel so as to be sure that is not contraindicated from their standpoint. I did recommend a follow-up upper endoscopy given the description of her previous endoscopies and recommendations from her team psychologist in [place], [place]. She is not having any [...] but was advised to speak with her [place] physicians about those recommendations to be sure there is no contraindication to them. I advised her that she might need Lovenox for bridging while off the clopidogrel and pentoxifylline. However, I advised her that would be up to the physicians at [place]. These procedures will be scheduled for her [...] summaries of her medical issues from the [place] physician such that we can share them with the medical staff and anesthesiologist at [facility] prior to her procedures. If it turns out that her [place] physicians do not think she is stable [...] to speak with her stroke doctor at [place] who prescribes her clopidogrel so as to be sure that is not contraindicated from their standpoint. I did recommend a follow-up upper endoscopy given the description of her previous endoscopies and recommendations from her team psychologist in [place], [place]. She is not having any [...] but was advised to speak with her [place] physicians about those recommendations to be sure there is no contraindication to them. I advised her that she might need Lovenox for bridging while off the clopidogrel and pentoxifylline. However, I advised her that would be up to the physicians at [place]. These procedures will be scheduled for her [...] summaries of her medical issues from the [place] physician such that we can share them with the medical staff and anesthesiologist at [facility] prior to her procedures. If it turns out that her [place] physicians do not think she is stable [...] to speak with her stroke doctor at [place] who prescribes her clopidogrel so as to be sure that is not contraindicated from their standpoint. I did recommend a follow-up upper endoscopy given the description of her previous endoscopies and recommendations from her team psychologist in [place], [place]. She is not having any [...] but was advised to speak with her [place] physicians about those recommendations to be sure there is no contraindication to them. I advised her that she might need Lovenox for bridging while off the clopidogrel and pentoxifylline. However, I advised her that would be up to the physicians at [place]. These procedures will be scheduled for her [...] summaries of her medical issues from the [place] physician such that we can share them with the medical staff and anesthesiologist at [facility] prior to her procedures. If it turns out that her [place] physicians do not think she is stable [...] to speak with her stroke doctor at [place] who prescribes her clopidogrel so as to be sure that is not contraindicated from their standpoint. I did recommend a follow-up upper endoscopy given the description of her previous endoscopies and recommendations from her team psychologist in [place], [place]. She is not having any [...] but was advised to speak with her [place] physicians about those recommendations to be sure there is no contraindication to them. I advised her that she might need Lovenox for bridging while off the clopidogrel and pentoxifylline. However, I advised her that would be up to the physicians at [place]. These procedures will be scheduled for her [...] summaries of her medical issues from the [place] physician such that we can share them with the medical staff and anesthesiologist at [facility] prior to her procedures. 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 She describes removal of polyps [...] requiring previous upper endoscopies and dilations in [place], [place] Hypthyoidism--had Grave's disease--s/p s urgery Interstitial lung disease from scleroder ma--Mold Filling Operator at [place] Sees Painter Bottom at [place] for a sclerode rma-related heart issue Seizures GERD and esophageal strictur e due to esophageal dysmotility from scleroderma as described above Surgical History Surgery Date(Month/Year) BTL Thyroidectomy/Parathyroidectomy
--- OUTSIDE RECORDS SUMMARY | 2025-06-10 15:17 | XMS_ITS | Clinical Summary ---
Author Organization [facility] Address 20 [place] [address] Phone Care Team Providers Care Denier Control Operator Name Role Phone Sal Jose MD Primary Care Provider [phone] Allergies Active Allergy Reactions Criticality Noted Date [...] EDT Follow Up Cardiovascular Medicine at [address] [place] [address] Mike Hilario MD NSVT (nonsustained ventricular tachycardia) (HC Code) (HC CODE) (Primary Dx); Chronic ischemic right MCA stroke; Aneurysm of middle cerebral artery; Scleroderma (HC CODE); ILD (interstitial lung disease) (HC Code) (HC CODE); History of pulmonary embolism 04/28/2025 1:45 PM EDT Office Visit [facility] St[facility] 800 [place] [address] Kristine Kelly MD PhD Chronic ischemic right [...] Visit [facility] at 800 [facility] 800 [place] [address] Virgie Mast MD PhD 800 [place] [address] 08/09/2025 1:00 PM EST Office Visit Pulmonary Critical [place] 136 [facility] [address] [place] [address] Ramon Nixon MD 136 [facility] 302 [place] [address] Ksenia Jain, RT 05/04/2026 1:45 PM EDT Office Visit [facility] Stroke 800 [place] [address] Kristine Kelly MD PhD 800 [place] [address] 05/09/2026 1:00 PM EDT Follow Up Cardiovascular Medicine at 175 [facility] 175 [facility] [place] [address] Mike Hilario MD [address] [place] [phone] Health Maintenance Due Date Last Done Comments [...] QTC Interval 446 ms SRC EKG P [place] 65 deg SRC EKG QRS [place] 25 deg SRC EKG T Wave [place] 41 deg SRC EKG P-R Interval 162 [...] 136 - 144 mmol/L 07/23/2024 3:09 PM [facility] DEPARTMENT OF LABORATORY MEDICINE Potassium 4.2 3.3 - 5.3 mmol/L 07/23/2024 3:09 PM [facility] DEPARTMENT OF LABORATORY MEDICINE Chloride 105 98 - 107 mmol/L 07/23/2024 3:09 PM [facility] DEPARTMENT OF LABORATORY MEDICINE CO2 26 20 - 30 mmol/L 07/23/2024 3:09 PM [facility] DEPARTMENT OF LAB[facility]ATORY MEDICINE Anion Gap 13 7 - 17 07/23/2024 3:09 PM [facility] DEPARTMENT OF LAB[facility]ATORY MEDICINE Glucose 89 70 - 100 mg/dL 07/23/2024 3:09 PM [facility] DEPARTMENT OF LABORATORY MEDICINE BUN 13 8 - 23 mg/dL 07/23/2024 3:09 PM [facility] DEPARTMENT OF LABORATORY MEDICINE Creatinine 0.72 0.40 - 1.30 mg/dL 07/23/2024 3:09 PM [facility] DEPARTMENT OF LABORATORY MEDICINE Calcium 9.7 8.8 - 10.2 mg/dL 07/23/2024 3:09 PM [facility] DEPARTMENT OF LABORATORY MEDICINE BUN/Creatinine Ratio 18.1 8.0 - 23.0 07/23/2024 3:09 PM [facility] DEPARTMENT OF LABORATORY MEDICINE Total Protein 6.7 5.9 - 8.3 g/dL 024 3:09 PM [facility] DEPART[facility] OF LAB[facility]ORY MEDICINE Comment:As of 2023, th e reference interval for Total Protein has been changed from (6.6 to 8.7 g/dL) to (5.9 to 8.3 g/dL). Albumin 4.3 3.6 - 5.1 g/dL 07/23/2024 3:09 PM [facility] OF LABORATORY MEDICINE Comment:As of 2023, e reference interval for Albumin has been changed from (3.6 to 4.9 g/dL) to (3.6 to 5.1 g/dL). Total Bilirubin 0.6 <=1.2 mg/dL 07/23/20 24 3:09 PM [facility] DEPARTMENT OF LABORATORY MEDICINE Alkaline Phosphatase 113 9 - 122 U/L 07/23/2024 3:09 PM [facility] DEPART[facility] OF LAB[facility]ATORY MEDICINE Alanine Aminotransferase (ALT) 27 10 - 35 U/L 07/23/2024 3:09 PM [facility] OF LAB[facility]ORY MEDICINE Comment:Calcium dobesilate c an cause artificially low ALT results at therapeutic concentrations Aspartate Aminotransferase (AST) 23 10 - 35 U/L 07/23/2024 3:09 PM [facility] DEPARTMENT OF LABORATORY MEDICINE Globulin 2.4 2.0 - 3.9 g/dL 07/23/2024 3:09 PM [facility] DEPARTMENT OF LABORATORY MEDICINE Comment:As of 2023, th e reference interval for Globulin has been changed from (2.3 to 3.5 g/dL) to (2.0 to 3.9 g/dL). A/G Ratio 1.8 1.0 - 2.2 07/23/2024 3:09 PM [facility] DEPARTMENT OF LABORATORY MEDICINE AST/ALT Ratio 0.9 Reference Range Not Established 07/23/2024 3:09 PM [facility] DEPARTMENT OF LABORATORY MEDICINE eGFR (Creatinine) >60 >=60 mL/min/1.73m2 07/23/2024 3:09 PM [facility] DEPARTMENT OF LABORATORY MEDICINE Comment: [facility] utilizes CKD-EPI Creatinine 2020 to report eGFR. Values < 60 mL/min/1.73 m2 may indicate CKD if present for more than three months AND creatinine is at steady state. The eGFR provides a rough estimate of kidney function. For further guidance, please refer to the CKD: Adult Steam Generating Powerplant Mechanic Signature pathway. Creatinine Delta 0.01 See Comment 024 3:09 PM [facility] DEPARTMENT OF LABORATORY MEDICINE Comment: Delta creatinine [...] LAB BLOOD ORDERABLES Evelin smith Result [facility] DEPARTMENT OF LABORATORY MEDICINE [address] [place] [address] from Last 3 Months or Most Recently Relevant to Health Maintenance [place] [address] [address] [id number] MEDICAID [place] [address] [address] [id number] MED[place]ID [place]IC[place] [address] [address] [facility] [address] [address] [id number] MEDICAID [place]IC[place] [address] [facility] Care Teams Denier Control Operator Relationship Specialty Start Date End Date Sal Jose MD [address] [place] [phone] PCP - General Family Medicine 10/16/23
--- OUTSIDE RECORDS SUMMARY | 2025-06-10 15:17 | XMS_ITS | Encounter Summary ---
Author Organization [facility] Address Unknown Care Team Providers Care Grey Goods Tester Name Role Phone Sal Jose MD Primary Care Provider [phone] Encounter Details Date Type Department Care Team (Late st Contact Info) Description 11/27/2021 Scanned Document Pulmonary Critical [place] 136 [facility] 302 [place] [address] Gaviota Rivera, YOSI Social History Tobacco Use [...] Visit [facility] at 800 [facility] 800 [facility] [place] [address] Virgie Mast MD PhD 800 [place] [phone] 08/09/2025 1:00 PM EST Office Visit Pulmonary Critical [place] 136 [facility] 302 [place], [place] [address] Ramon Nixon MD 136 [facility] 302 [place] [phone] Ksenia Jain, RT 05/04/2026 1:45 PM EDT Office Visit Stroke 800 [facility] [place] [address] Kristine Kelly MD PhD 800 [place] [phone] 05/09/2026 1:00 PM EDT Follow Up Cardiovascular Medicine at 175 [facility] 175 [facility] [place] [address] Mike Hilario MD 175 [facility] [address] 2 [place] [phone] documented as of this encounter Visit Diagnoses Not on filedocumented in this encounter Care Teams Grey Goods Tester Relationship Specialty Start Date End Date Sal Jose MD [address] [phone] PCP - General Family Medicine 10/16/23 documented as of this encounter
--- OUTSIDE RECORDS SUMMARY | 2025-06-10 15:17 | XMS_ITS | Encounter Summary ---
Author Organization [facility] Address [address] [place] [phone] Care Team Providers Care Brand Advocate Name Role Phone Sal Jose MD Primary Care Provider [phone] Encounter Details Date Type Department Care Team (Late Contact Info) Description 08/31/2024 Transcribed Orders [facility] [address] [place], [place] [address] System, Provider Not In CRST syndrome (HC [...] [facility] 800 [place], [place] [address] Virgie Mast MD PhD [address] [place] [phone] 08/09/2025 1:00 PM EST Office Visit Pulmonary Critical [place] 136 [facility] [address] [place] [address] Ramon Nixon MD 136 [facility] 302 [place] [phone] Ksenia Jain, RT 05/04/2026 1:45 PM EDT Office Visit Stroke 800 [facility] [place] [address] Kristine Kelly MD PhD 800 [place] [phone] 05/09/2026 1:00 PM EDT Follow Up Cardiovascular Medicine at 175 [facility] 175 [facility] [place] [address] Mike Hilario MD 175 [facility] [address] [place] [address] Scheduled Orders Name Type Priority Associated Diagnoses [...] documented as of this encounter Care Teams Brand Advocate Relationship Specialty Start Date End Date Sal Jose MD [address] [place] [address] PCP - General Family Medicine 10/16/23 documented as of this encounter
--- OUTSIDE RECORDS SUMMARY | 2025-06-10 15:17 | XMS_ITS | Encounter Summary ---
Author Organization [facility] Address Unknown Care Team Providers Care Research Investigator Name Role Phone Sal Jose MD Primary Care Provider [phone] Reason for Referral * General (Routine) - New Request Specialty Diagnoses / Procedures Referred By Contac t Referred To Contact Pulmonary Disease Procedures Pulmonary Function Test ([facility]) Ramon Nixon MD [address] [place] [address] 302 [place] [address] Phone: tel: fax: Referral ID Status Reason Start Date Expiration Date V isits Requested Visits Authorized [id number] New Request 08/31/2024 08/31/2025 1 1 Encounter Details Date Type Department Care Team (Late st Contact Info) Description 08/31/2024 Scanned Document [facility] Critical [place] 136 [facility] 302 [place], [place] [phone] Ramon Nixon MD [address] [place] [address] 302 [place] [address] Social History Tobacco Use Types [...] Office Visit Epilepsy & Seizures at 800 [facility] 800 [place] [address] Virgie Mast MD PhD 800 [place] [phone] 08/09/2025 1:00 PM EST Office Visit [place]monary Critical [place] 136 [facility] [address] [place] [address] Ramon Nixon MD 136 [facility] 302 [place] [phone] Ksenia Jain, RT 05/04/2026 1:45 PM EDT Office Visit Stroke 800 [facility] [place] [address] Kristine Kelly MD PhD 800 [place] [phone] 05/09/2026 1:00 PM EDT Follow Up Cardiovascular Medicine at 175 [facility] 175 [facility] [place] [address] Mike Hilario MD 175 [facility] [address] [place] [phone] documented as of this encounter Procedures Procedure Name Priority Date/Time Associated Diagnosis Comments PULMONARY FUNCTION TEST ([facility] ONLY) Routine 08/31/2024 4:13 PM EST documented in this encounter Results * Pulmonary Function Test ([facility]) (08/31/2024 4:13 PM EST) Raomn Nixon MD PFT ORDERABLES Final Result documented in this encounter Visit Diagnoses Not on filedocumented in this encounter Additional Health Concerns Assessment Noted Time PHQ-9 Depression Total Score: 0 04/07/20 2:31 PM EDT documented as of this encounter Care Teams Research Investigator Relationship Specialty Start Date End Date Sal Jose MD [facility] [address] [address] PCP - General Family Medicine 10/16/23 documented as of this encounter
--- OUTSIDE RECORDS SUMMARY | 2025-06-10 15:17 | XMS_ITS | Encounter Summary ---
Author Organization [facility] Address Unknown Care Team Providers Care Urologist Md Name Role Phone Sal Jose MD Primary Care Provider [phone] Encounter Details Date Type Department Care Team (Late st Contact Info) Description 11/27/2021 Scanned Document [place] [address] [address] External, Provider Social History Tobacco Use Types [...] Health Care [facility] [place] [address] Virgie Mast MD PhD 800 [place] [phone] 08/09/2025 1:00 PM EST Office Visit [place] 136 [facility] 302 [place], [place] [address] Ramon Nixon MD 136 [facility] 302 [place] [address] Ksenia Jain, RT 05/04/2026 1:45 PM EDT Office Visit Stroke 800 [facility] [place] [address] Kristine Kelly MD PhD 800 [place] [address] 05/09/2026 1:00 PM EDT Follow Up Cardiovascular Medicine at 175 [facility] 175 [facility] THIRD FLOOR [place], [place] [address] Mike Hilario MD 175 [facility] [address] 2 [place] [address] documented as of this encounter Visit Diagnoses Not on filedocumented in this encounter Care Teams Urologist Md Relationship Specialty Start Date End Date Sal Jose MD [address] [phone] PCP - General Family Medicine 10/16/23 documented as of this encounter
--- OUTSIDE RECORDS SUMMARY | 2025-06-10 15:17 | XMS_ITS | Encounter Summary ---
Author Organization [facility] Address Unknown Care Team Providers Care Testboard Operator Name Role Phone Sal Jose MD Primary Care Provider [phone] Encounter Details Date Type Department Care Team (Late st Contact Info) Description 11/19/2022 Scanned Document [place]monary [place] 136 [facility] 302 [place], [place] [address] External, Provider Social History Tobacco Use Types [...] [facility] Se[facility]ures at 800 [facility] 800 [facility] [place] [address] Virgie Mast MD PhD 800 [place] [address] 08/09/2025 1:00 PM EST Office Visit [place] 136 [facility] 302 [place], [place] [address] Ramon Nixon MD 136 [facility] 302 [place] [address] Ksenia Jain, RT 05/04/2026 1:45 PM EDT Office Visit Stroke 800 [facility] [place] [address] Kristine Kelly MD PhD 800 [place] [address] 05/09/2026 1:00 PM EDT Follow Up Cardiovascular Medicine at 175 [facility] 175 [facility] THIRD FLOOR [place], [place] [address] Mike Hilario MD 175 [facility] [address] 2 [place] [address] documented as of this encounter Visit Diagnoses Not on filedocumented in this encounter Care Teams Testboard Operator Relationship Specialty Start Date End Date Sal Jose MD [address] [phone] PCP - General Family Medicine 10/16/23 documented as of this encounter
--- OUTSIDE RECORDS SUMMARY | 2025-06-10 15:17 | XMS_ITS | Clinical Summary ---
Author Organization [employer] Address [address] [place] [address] 7t [place] [address] Care Team Providers Care Manager Fund Name Role Phone Cordell Saba Unavailable Unavailable [...] Pulmonary embolism 06/05/2012 Overview (07/29/2024): 1990- in [place] Primary hypertension 02/13/2012 Hypothyroidism 02/04/2012 Overview (07/29/2024): [...] Health Maintenance Insurance 1-[place] [id number] [facility] FULL MEDICARE HSN FULL MEDICARE 1[place] [id number] DENTAL - HSN FULL (MEDICAID) Care Teams Manager Fund Relationship Specialty Start Date End Date [facility] 08/12/24 CASSIDY DE LA FUENTE NPI ID: [id number] Address: [address] [place] [phone] Primary Care Physician [id number] Primary Care Provider 08/12/18
--- OUTSIDE RECORDS SUMMARY | 2025-06-10 15:17 | XMS_ITS | Encounter Summary ---
Author Organization [facility] Address Unknown Care Team Providers Care Flame Gouger Name Role Phone Sal Jose MD Primary Care Provider [phone] Encounter Details Date Type Department Care Team (Late st Contact Info) Description 08/13/2023 Scanned Document Pulmonary Critical [place] [address] [facility] 302 [place], [place] [address] External, Provider Social History Tobacco Use Types [...] & Seizures at 800 [facility] 800 [facility] [place] [address] Virgie Mast MD PhD 800 [place] [phone] 08/09/2025 1:00 PM EST Office [place] [facility] 302 [place], [place] [address] Ramon Nixon MD 136 [facility] 302 [place] [address] Ksenia Jain, RT 05/04/2026 1:45 PM EDT Office Visit Stroke 800 [facility] [place] [address] Kristine Kelly MD PhD 800 [place] [address] 05/09/2026 1:00 PM EDT Follow Up Cardiovascular Medicine at 175 [facility] 175 [facility] THIRD FLOOR [place], [place] [address] Mike Hilario MD 175 [facility] Fl 2 [place] [address] documented as of this encounter Visit Diagnoses Not on filedocumented in this encounter Care Teams Flame Gouger Relationship Specialty Start Date End Date Sal Jose MD [address] [phone] PCP - General Family Medicine 10/16/23 documented as of this encounter
--- OUTSIDE RECORDS SUMMARY | 2025-06-10 15:17 | XMS_ITS | Encounter Summary ---
Author Organization [facility] Address 20 [place] [address] Care Team Providers Care Deburr Technician Name Role Phone Sal Jose MD Primary Care Provider [phone] Encounter Details Date Type Department Care Team (Late Contact Info) Description 08/09/2014 Abstract [facility]ology at 175 [facility] 175 [place] [address] Emerita Beth MD 35 [place] [phone] Social History Tobacco Use Types Packs/Day Years [...] [facility] Lower [place], [place] [address] Virgie Mast MD PhD 800 [place] [phone] 08/09/2025 1:00 PM EST Office Visit [place] 136 [facility] [address] [place], [place] [address] Ramon Nixon MD 136 [facility] 302 [place] [address] Ksenia Jain, RT 05/04/2026 1:45 PM EDT Office Visit Stroke [address] [facility] [place] [address] Kristine Kelly MD PhD 800 [place] [address] 05/09/2026 1:00 PM EDT Follow Up Cardiovascular Medicine at 175 [facility] 175 [facility] THIRD FLOOR [place], [place] [address] Mike Hilario MD 175 [facility] 2 [place] [address] documented as of this encounter Visit Diagnoses Not on filedocumented in this encounter Care Teams Deburr Technician Relationship Specialty Start Date End Date Sal Jose MD 1033 [facility] [address] [place] [phone] PCP - General Family Medicine 10/16/23 documented as of this encounter
--- OUTSIDE RECORDS SUMMARY | 2025-06-10 15:17 | XMS_ITS | Encounter Summary ---
Author Organization [facility] Address Unknown Care Team Providers Care Review Consultant Name Role Phone Sal Jose MD Primary Care Provider Encounter Details Date Type Department Care Team (Late st Contact Info) Description 08/13/2023 Scanned Document Pulmonary Critical [place] 136 [facility] 302 [place], [place] [address] External, Provider Social History Tobacco Use Types [...] 800 [facility] [place] [address] Virgie Mast MD PhD 800 [place] [address] 08/09/2025 1:00 PM EST Office Visit [place]monary Critical [place] 136 [facility] 302 [place], [place] [address] Ramon Nixon MD 136 [facility] 302 [place] [address] Ksenia Jain, RT 05/04/2026 1:45 PM EDT Office Visit Stroke 800 [facility] [place] [address] Kristine Kelly MD PhD 800 [place] [address] 05/09/2026 1:00 PM EDT Follow Up Cardiovascular Medicine at 175 [facility] 175 [facility] THIRD [place]LOOR [place], [place] [address] Mike Hilario MD 175 [facility] [address] 2 [place] [address] documented as of this encounter Visit Diagnoses Not on filedocumented in this encounter Care Teams Review Consultant Relationship Specialty Start Date End Date Sal Jose MD [address] [phone] PCP - General Family Medicine 10/16/23 documented as of this encounter
--- OUTSIDE RECORDS SUMMARY | 2025-06-10 15:17 | XMS_ITS | Encounter Summary ---
Author Organization [facility] Address Unknown Care Team Providers Care Bow Maker Name Role Phone Sal Jose MD Primary Care Provider [phone] Encounter Details Date Type Department Care Team (Late st Contact Info) Description 11/19/2022 Scanned Document [place] 136 [facility] 302 [place], [place] [address] External, Provider Social History Tobacco Use Types [...] Visit [facility] Seizures at 800 [facility] 800 [facility] [place] [address] Virgie Mast MD PhD 800 [place] [address] 08/09/2025 1:00 PM EST Office Visit [place]monary Critical [place] 136 [facility] 302 [place], [place] [address] Ramon Nixon MD 136 [facility] 302 [place] [address] Ksenia Jain, RT 05/04/2026 1:45 PM EDT Office Visit Stroke 800 [facility] [place] [address] Kristine Kelly MD PhD 800 [place] [address] 05/09/2026 1:00 PM EDT Follow Up Cardiovascular Medicine at 175 [facility] 175 [facility] THIRD FLOOR [place], [place] [address] Mike Hilario MD 175 [facility] [address] 2 [place] [address] documented as of this encounter Visit Diagnoses Not on filedocumented in this encounter Care Teams Bow Maker Relationship Specialty Start Date End Date Sal Jose MD [address] [phone] PCP - General Family Medicine 10/16/23 documented as of this encounter
== END 2025-06-10 13:08 | disposition home or self-care (01) ==
LOC: HO.US 13:07
PROVIDERS: PCP Family Medicine; Visit Provider Obstetrics & Gynecology
DX: N95.0 Postmenopausal bleeding (principal)
CPT/HCPCS: 76830; 76856

== ENCOUNTER → 2025-06-10 13:09 | Outpatient (BNV) | payer MEDICARE, MEDICAID, SELFPAY | PROVIDERS: PCP Family Medicine; Visit Provider Radiology Diagnostic Ultrasound | DX: N95.0 Postmenopausal bleeding (principal) | CPT/HCPCS: 76830; 76856 ==

== ENCOUNTER 2025-06-13 09:58 | Outpatient (AMB) | payer MEDICARE, MEDICAID, SELFPAY ==
--- OUTSIDE RECORDS SUMMARY | 2025-06-01 03:30 | XMS_ITS ---
Author Organization [facility] Address [address] [place] [phone] Care Team Providers Care Drafter Geological Name Role Phone Jayant Walker Primary Care Provider Unavailab Venkatesh Moss [facility] [phone] REASON FOR VISIT screening,egd Encounters Encounter Location Date Provider Diagnosis [facility] [place] [address] [place], [place] [phone] 06/01/2025 Venkatesh Marsh Plan Of Treatment No Information Progress Notes * CAMILA TORRESOB:[birth year] (64 yo F)Acc No.[id number]:06/01/2025 EGD and COL/MAC Patient: Savanah SNYDERROMAN RUTHERFORD Provider: Sharonda Marsh MD :1960 A ge:64 Y S ex:Female Date:06/01/2025 Address:[address] [place] [address] [facility] Pcp:Jayant Walker Subjective: * Chief Complaints: * 1 . Screening,egd. * Medical History: Objective: * Vitals: Assessment: Plan: * Treatment: * * The named appointment provid er may or may not be the originator of this progress note, and it is not deemed complete until electronically signed by the appointment provider. Sign off status: Pending * Provider: Sharonda Marsh MD Date: Generated for Sommer francis/Elvia/Mercyitting on: 08/09/2024 05:07 PM EST
[2025-06-09 14:25] VITALS: BMI 34.7
--- NOTE | 2025-06-09 14:25 | MHC.OFFVIS ---
Vital Signs 06/09/25 14:25 06/13/25 10:05 Height 5 ft 8 in 5 ft 8 in Weight 228 lb BMI 34.7 BP 132/74 Intake Visit Reasons: Colpo/EMB Allergies Penicillins Allergy (Severe, Verified 05/30/25 12:20) Anaphylaxis morphine Adverse Reaction (Intermediate, Verified 05/30/25 12:20) Confusion HPI Comments Details: Presenting for follow-up regarding postmenopausal bleeding. The patient has had multiple episode of vaginal bleeding /spotting since then. Last echo testing showed the following: ABNORMAL PAP TEST. Satisfactory for evaluation, with atypical squamous cells of undetermined significance (ASC-US). HPV High Risk: Negative HPV Genotyping 16: Positive HPV Genotyping 18: Negative Pelvic ultrasound showed the following: LMP:Postmenopausal Uterus: The uterus is normal in size, measuring 7 x 1.9 x 3.4 cm. Myometrium has a normal echotexture. Heterogeneous echotexture of the uterine parenchyma.. Small echogenic foci suggesting calcifications adjacent to the endometrium. Endometrium: The endometrial stripe measures 1 mm in thickness. Right ovary: Not visualized. Left ovary: Not visualized. Pelvic fluid: none. Dilated left pelvic vessels, question pelvic congestion. [facility] Medical History Nonalcoholic fatty liver Migraine Hyperlipidemia CREST syndrome Chronic kidney disease Hypertension Pulmonary emboli Middle cerebral artery aneurysm Subclavian steal syndrome of right subclavian artery Chronic ischemic right MCA stroke Stroke Lung disease Surgical History S/P IVC filter H/O brain surgery Family History Maternal Grandmother FH: mental illness Brother FH: mental illness Sister FH: mental illness Father FH: mental illness Social History Housing: Apartment Alcohol intake: never Patient Tobacco Use Status: Never used Tobacco e-Cigarette/Vaping Use: Never Used Second Hand Smoke Exposure: No Substance Use Type: Other service: No Current occupational status: retired Current occupational exposures/hazards: No Cognitive needs: Yes (aphasia ) Hearing needs: No Vision needs: Yes Review of Systems Const All systems reviewed & are unremarkable except as noted in HPI and below Reports as per HPI and Reports no additional complaints GI Reports no additional complaints Reports no additional complaints Physical Exam Vital Signs: BMI result Body Mass Index 34.7 Office Procedures Colposcopy Colposcopy: Pre-Procedure Counseling: Before beginning the procedure, I conducted comprehensive counseling with the patient. We thoroughly discussed the procedure itself, including its details, alternatives, and all associated risks. This included but not limited to the following complications such as bleeding, infection, and injury to the vagina, bladder, and vessels, as well as the potential need for transfusion with all its associated risks. Subsequently, the patient sign the consent. Pap smear result: ASCUS HPV positive Procedure: During the procedure, the following steps were performed: A speculum was inserted, and acetic acid was applied. Colposcopy was conducted, allowing visualization of the transformation zone. Acetowhite lesions were identified at the 12 o'clock position. Cervical biopsies were obtained from the 12 o'clock position, followed by an endocervical curettage (ECC). Vaginoscopy of the upper vagina revealed no evidence of aceto-white lesions. Hemostasis was achieved using Monsel solution, and the patient tolerated the procedure well. Post-Procedure Instructions: The patient was advised to promptly contact the office or the after hours answering service or go to the emergency room if experiencing a temperature exceeding 100.4?F, abdominal pain, nausea/vomiting, or bleeding. Additionally, the patient was instructed to abstain from vaginal intercourse and bathtub use. The patient confirmed understanding of these instructions. Discharge Instructions: The patient was instructed to schedule a follow-up appointment in 2 weeks for further evaluation and management. Please note that this note was generated using a voice recognition program, and errors may have occurred during sock drier. 45659-Hivrncrsw of cervix including upper vagina with biopsy and ECC Procedure code (CPT) selection complete Endometrial Biopsy Details: The patient was counseled regarding the indication and benefits of endometrial sampling to rule out endometrial pathology including not limited to endometrial hyperplasia or endometrial cancer and others; The alternatives (Either do nothing vs. hysteroscopy D&C) & the risks were discussed with the patient including but not limited: pain, uterine perforation, bleeding, infection, possible injury to bladder, bowel, ureter, possible need for blood transfusion with all its possible risks. The patient verbalized understanding all questions answered and signed consent. The patient was placed into the dorsal lithotomy position; a speculum was inserted in the vagina. Using aseptic technique for the procedure, the cervix was cleansed with Betadine. The anterior lip of the cervix was grasped with a single tooth tenaculum. The uterus was sounded to 7 cm with a 4 mm Pipelle was used. Tissues samples were obtained and placed in formalin, in a patient labeled container and sent to the pathology department. At the end of the procedure, there was minimal bleeding noted The patient tolerated the procedure well and was discharged in good condition with the following instructions: Nothing in the vagina until the bleeding stops. No sex until the bleeding stops, to call if any of the following occurs: fever (>100.4), flu-like symptoms, abdominal pain, heavy bleeding, four smelling vaginal discharge. The patient was instructed to schedule a Follow up appointment in 2 weeks to discuss pathology results of the biopsy and treatment options. This note was generated with a voice recognition program. Some errors may have been overlooked during the review of this note. Sometimes these errors may affect the content or meaning of a given sentence. 51870-Qldztvvcurt Biopsy Assessment & Plan Assessment & Plan (1) ASCUS with positive high risk HPV cervical: Code(s): R87.610 - Atypical squamous cells of undetermined significance on cytologic smear of cervix (ASC-US); R87.810 - Cervical high risk human papillomavirus (HPV) DNA test positive Category: Medical Plan: Discussed with the patient the result of her abnormal pap, its significance, risk of progression, persistence, and regression. the false positive/negative rate of a Pap smear as a screening test in detecting cervical cancer and the indication for a diagnostic test -colposcopy, biopsy, endocervical curettage. The patient verbalized understanding and agreed with the plan, all questions answered. Colposcopy, biopsy /ECC done, see procedure note (2) Postmenopausal bleeding: Comment: Endometrial thickness 1 mm Recurrent vaginal bleeding Code(s): N95.0 - Postmenopausal bleeding Category: Medical Plan: Discussed with the patient the results of the pelvic ultrasound showing an endometrial stripe thickness of 1 mm. Explained to the patient with an endometrial stripe of 4 mm &/or less, there is a high negative predictive value in detecting endometrial pathology including endometrial hyperplasia, polyps or malignancy. But since the patient had multiple recurrent episodes of vaginal spotting/bleeding, EMB is indicated EMB done, see procedure note Orders: Orders AMB Colposcopy Today R87.610 - Atypical squamous cells of undetermined significance on cytologic smear of cervix (ASC-US), R87.810 - Cervical high risk human papillomavirus (HPV) DNA test positive AMB Endometrial Biopsy Today N95.0 - Postmenopausal bleeding Coding Level of Care Code Procedure Only Diagnoses ASCUS with positive high risk HPV cervical R87.610; R87.810 Postmenopausal bleeding N95.0 CPT Codes Colposcopy - CPT: 82110-Davwsktfb of cervix including upper vagina with biopsy and ECC ([id number]) Endometrial Biopsy - CPT: 49373-Btvubzuwwly Biopsy ([id number])
--- OUTSIDE RECORDS SUMMARY | 2025-06-09 17:07 | XMS_ITS | Encounter Summary ---
Author Organization [facility] Address [address] [place] [phone] Care Team Providers Care Credit Union Examiner Name Role Phone Sal Jose MD Primary Care Provider Encounter Details Date Type Department Care Team (Late Contact Info) Description 10/28/2023 Scanned Document [facility] at [address] [place] [address] Joao Loredo MD [address] [place] [phone] Social History Tobacco Use Types Packs/Day Years [...] Office Visit [facility] at [address] [place] [address] [phone] Virgie Mast MD PhD [address] [place] [phone] 08/09/2025 1:00 PM EST Office Visit Pulmonary Critical [facility] [address] [place] [address] [address] [place] [address] Ramon Nixon MD 136 [facility] [address] [place] [address] Ksenia Jain, RT 05/04/2026 1:45 PM EDT Office Visit Stroke 800 [facility] [place] [address] Kristine Kelly MD PhD 800 [place] [address] 05/09/2026 1:00 PM EDT Follow Up Cardiovascular Medicine at 175 [facility] 175 [facility] [place] [address] Mike Hilario MD 175 [facility] [address] [place] [address] documented as of this encounter Procedures Procedure [...] Result Scan (02/06/2022 11:26 AM EDT) Result [facility] Provider IMG SCAN REPORTS Final Resul t documented in this encounter Visit Diagnoses Not on filedocumented in this encounter Care Teams Credit Union Examiner Relationship Specialty Start Date End Date Sal Jose MD 1033 [facility] [address] [place] [phone] PCP - General Family Medicine 10/16/23 documented as of this encounter
--- OUTSIDE RECORDS SUMMARY | 2025-06-09 17:07 | XMS_ITS | Clinical Summary ---
Author Organization [employer] Address [address] [place] [address] [address] [place] [address] Care Team Providers Care Admission Nurse Name Role Phone Cordell Saba Unavailable Unavailable [...] Pulmonary embolism 06/05/2012 Overview (07/29/2024): 1990- in [place] Primary hypertension 02/13/2012 Hypothyroidism 02/04/2012 Overview (07/29/2024): [...] Health Maintenance [place] 1[place] [id number] [facility] FULL MEDICARE HSN FULL MEDICARE 1[place] [id number] DENTAL - HSN FULL (MEDICAID) Care Teams Admission Nurse Relationship Specialty Start Date End Date [facility] 08/12/24 CASSIDY DE LA FUENTE NPI ID: [id number] Address: [address] [place] [phone] Primary Care Physician [id number] Primary Care Provider 08/12/18
--- OUTSIDE RECORDS SUMMARY | 2025-06-09 17:07 | XMS_ITS | Encounter Summary ---
Author Organization [facility] Address [address] [place] [address] Care Team Providers Care Stone Crusher Operator Name Role Phone Sal Jose MD Primary Care Provider [phone] Encounter Details Date Type Department Care Team (Late Contact Info) Description 10/27/2023 Scanned Document [facility] SCHEDULING 25 [place], [place] 807[address] Provider, Historical . Social History Tobacco Use [...] Office Visit Epilepsy & Seizures at [address] [facility] [address] [facility] [place] [address] Virgie Mast MD PhD 800 [place] [phone] 08/09/2025 1:00 PM EST Office Visit Pulmonary Critical [place] 136 [facility] [address] [place], [place] [address] Ramon Nixon MD [address] [place] [address] 302 [place] [address] Ksenia Jain, RT 05/04/2026 1:45 PM EDT Office Visit Stroke [address] [facility] [place] [address] Kristine Kelly MD PhD 800 [place] [phone] 05/09/2026 1:00 PM EDT Follow Up Cardiovascular Medicine at 175 [facility] 175 [facility] THIRD FLOOR [place], [place] [address] Mike Hilario MD 175 [facility] 2 [place] [address] documented as of this encounter Visit Diagnoses Not on filedocumented in this encounter Care Teams Stone Crusher Operator Relationship Specialty Start Date End Date Sal Jose MD 10[address] [facility] [address] [place] [phone] PCP - General Family Medicine 10/16/23 documented as of this encounter
--- OUTSIDE RECORDS SUMMARY | 2025-06-09 17:07 | XMS_ITS | Encounter Summary ---
Author Organization [facility] Address Unknown Care Team Providers Care Financial Reporting Accountant Name Role Phone Sal Jose MD Primary Care Provider [phone] Encounter Details Date Type Department Care Team (Late st Contact Info) Description 08/13/2023 Scanned Document [facility] Critical [place] 136 [facility] 302 [place], [place] [address] External, Provider Social History Tobacco Use Types [...] [facility] at 800 [facility] 800 [facility] [place] [address] Virgie Mast MD PhD 800 [place] [address] 08/09/2025 1:00 PM EST Office Visit [place]monary Critical [place] 136 [facility] 302 [place] [address] Ramon Nixon MD 136 [facility] 302 [place] [address] Ksenia Jain, RT 05/04/2026 1:45 PM EDT Office Visit Stroke 800 [facility] [place] [address] Kristine Kelly MD PhD 800 [place] [address] 05/09/2026 1:00 PM EDT Follow Up Cardiovascular Medicine at 175 [facility] 175 [facility] THIRD FLOOR [place] [address] Mike Hilario MD 175 [facility] [address] 2 [place] [address] documented as of this encounter Visit Diagnoses Not on filedocumented in this encounter Care Teams Financial Reporting Accountant Relationship Specialty Start Date End Date Sal Jose MD [address] [address] PCP - General Family Medicine 10/16/23 documented as of this encounter
--- OUTSIDE RECORDS SUMMARY | 2025-06-09 17:07 | XMS_ITS | Encounter Summary ---
Author Organization [facility] Address [address] [address] Phone Care Team Providers Care Automobile Sales Representative Name Role Phone Sal Jose MD Primary Care Provider [phone] Encounter Details Date Type Department Care Team (Late Contact Info) Description 05/25/2024 Scanned Document [facility] - [address] [address] Nain Cat MD [address] [place] [phone] Social History Tobacco Use Types Packs/Day [...] Visit [facility]ures at 800 [facility] 800 [facility] [place] [address] Virgie Mast MD PhD 800 [place] [address] 08/09/2025 1:00 PM EST Office Visit [place] Critical [place] 136 [facility] [address] [place], [place] [address] Ramon Nixon MD 136 [facility] 302 [place] [address] Ksenia Jain, RT 05/04/2026 1:45 PM EDT Office Visit Stroke 800 [facility] [place] [address] Kristine Kelly MD PhD 800 [place] [address] 05/09/2026 1:00 PM EDT Follow Up Cardiovascular Medicine at 175 [facility] 175 [facility] THIRD FLOOR [place], [place] [address] Mike Hilario MD 175 [facility] 2 [place] [address] documented as of this encounter Visit Diagnoses Not on filedocumented in this encounter Additional Health Concerns Assessment Noted Time PHQ-9 Depression Total Score: 0 04/07/20 2:31 PM EDT documented as of this encounter Care Teams Automobile Sales Representative Relationship Specialty Start Date End Date Sal Jose MD [facility] [address] [address] PCP - General Family Medicine 10/16/23 documented as of this encounter
--- OUTSIDE RECORDS SUMMARY | 2025-06-09 17:07 | XMS_ITS | Encounter Summary ---
Author Organization [facility] Address Unknown Care Team Providers Care Coat Operator Insulator Name Role Phone Sal Jose MD Primary Care Provider [phone] Reason for Referral * General (Routine) - New Request Specialty Diagnoses / Procedures Referred By Contac t Referred To Contact Pulmonary Disease Procedures Pulmonary Function Test ([facility]) Ramon Nixon MD [address] [place] [address] 302 [place] [address] Phone: tel: fax: Referral ID Status Reason Start Date Expiration Date V isits Requested Visits Authorized [id number] New Request 08/31/2024 08/31/2025 1 1 Encounter Details Date Type Department Care Team (Late st Contact Info) Description 08/31/2024 Scanned Document [facility]monary Critical [place] [address] [facility] 302 [place], [place] [phone] Ramon Nixon MD [address] [place] [address] 302 [place] [address] Social History Tobacco Use Types [...] Office Visit Epilepsy & Seizures at 800 [facility] 800 [place] [address] Virgie Mast MD PhD 800 [place] [phone] 08/09/2025 1:00 PM EST Office Visit [place]monary Critical [place] 136 [facility] [address] [place] [address] Ramon Nixon MD 136 [facility] 302 [place] [address] Ksenia Jain, RT 05/04/2026 1:45 PM EDT Office Visit Stroke 800 [place] [address] Kristine Kelly MD PhD [address] [place] [address] 05/09/2026 1:00 PM EDT Follow Up Cardiovascular Medicine at 175 [facility] 175 [facility] [place] [address] Mike Hilario MD 175 [facility] [address] 2 [place] [phone] documented as of this encounter Procedures Procedure [...] documented as of this encounter Care Teams Coat Operator Insulator Relationship Specialty Start Date End Date Sal Jose MD [facility] [address] [address] PCP - General Family Medicine 10/16/23 documented as of this encounter
--- OUTSIDE RECORDS SUMMARY | 2025-06-09 17:07 | XMS_ITS | Encounter Summary ---
Author Organization [facility] Address 20 [place] [address] Care Team Providers Care Retail Warehouse Supervisor Name Role Phone Sal Jose MD Primary Care Provider Encounter Details Date Type Department Care Team (Late Contact Info) Description 08/09/2014 Abstract [facility] Endocrinology at 175 [facility] 175 [place] [address] Emerita Beth MD 35 [place] [phone] Social History Tobacco Use Types Packs/Day Years [...] [facility] Lower Level [place], [place] [address] Virgie Mast MD PhD 800 [place] [phone] 08/09/2025 1:00 PM EST Office Visit Pulmonary Critical [place] 136 [facility] [address] [place], [place] [address] Ramon Nixon MD 136 [facility] 302 [place] [address] Ksenia Jain, RT 05/04/2026 1:45 PM EDT Office Visit Stroke 800 [facility] [place] [address] Kristine Kelly MD PhD 800 [place] [address] 05/09/2026 1:00 PM EDT Follow Up Cardiovascular Medicine at 175 [facility] 175 [facility] THIRD [place], [place] [address] Mike Hilario MD 175 [facility] 2 [place] [address] documented as of this encounter Visit Diagnoses Not on filedocumented in this encounter Care Teams Retail Warehouse Supervisor Relationship Specialty Start Date End Date Sal Jose MD 1033 [facility] [address] [place] [phone] PCP - General Family Medicine 10/16/23 documented as of this encounter
--- OUTSIDE RECORDS SUMMARY | 2025-06-09 17:07 | XMS_ITS | Encounter Summary ---
Author Organization [facility] Address 20 [place] [address] Care Team Providers Care Dialysis Equipment Technician Name Role Phone Sal Jose MD Primary Care Provider [phone] Encounter Details Date Type Department Care Team (Late st Contact Info) Description 08/13/2023 Scanned Document EXTERNAL REFERRAL SOURCE 20 [place] [address] External, Provider Social History Tobacco Use Types [...] [facility] [place] [address] Virgie Mast MD PhD 800 [place] [address] 08/09/2025 1:00 PM EST Office Visit [place] 136 [facility] 302 [place], [place] [address] Ramon Nixon MD [address] [place] [address] 302 [place] [address] Ksenia Jain, RT 05/04/2026 1:45 PM EDT Office Visit Stroke [address] [facility] Lower Level [place], [place] [address] Kristine Kelly MD PhD 800 [place] [phone] 05/09/2026 1:00 PM EDT Follow Up Cardiovascular Medicine at 175 [facility] 175 [facility] THIRD FLOOR [place], [place] [address] Mike Hilario MD 175 [facility] [address] 2 [place] [phone] documented as of this encounter Visit Diagnoses Not on filedocumented in this encounter Care Teams Dialysis Equipment Technician Relationship Specialty Start Date End Date Sal Jose MD [address] [phone] PCP - General Family Medicine 10/16/23 documented as of this encounter
--- OUTSIDE RECORDS SUMMARY | 2025-06-09 17:07 | XMS_ITS | Encounter Summary ---
Author Organization [facility] Address Unknown Care Team Providers Care Changer Fixer Name Role Phone Sal Jose MD Primary Care Provider [phone] Encounter Details Date Type Department Care Team (Late st Contact Info) Description 11/19/2022 Scanned Document [facility]monary [place] 136 [facility] 302 [place], [place] [address] External, Provider Social History Tobacco Use Types [...] 800 [facility] [place] [address] Virgie Mast MD PhD 800 [place] [phone] 08/09/2025 1:00 PM EST Office Visit Pulmonary Critical [place] 136 [facility] 302 [place], [place] [address] Ramon Nixon MD 136 [facility] 302 [place] [address] Ksenia Jain, RT 05/04/2026 1:45 PM EDT Office Visit Stroke 800 [facility] [place] [address] Kristine Kelly MD PhD 800 [place] [address] 05/09/2026 1:00 PM EDT Follow Up Cardiovascular Medicine at 175 [facility] 175 [facility] THIRD FLOOR [place], [place] [address] Mike Hilario MD 175 [facility] [address] 2 [place] [address] documented as of this encounter Visit Diagnoses Not on filedocumented in this encounter Care Teams Changer Fixer Relationship Specialty Start Date End Date Sal Jose MD [address] [phone] PCP - General Family Medicine 10/16/23 documented as of this encounter
--- OUTSIDE RECORDS SUMMARY | 2025-06-09 17:07 | XMS_ITS | Encounter Summary ---
Author Organization [facility] Address [address] [place] [address] Care Team Providers Care Surgical Garment Fitter Name Role Phone Sal Jose MD Primary Care Provider [phone] Encounter Details Date Type Department Care Team (Late Contact Info) Description 08/31/2024 Transcribed Orders [facility] 55 [place], [place] [address] System, Provider Not In CRST syndrome (HC [...] Visit [facility] Ep[facility] Seizures at 800 [facility] 800 [place], [place] [address] Virgie Mast MD PhD [address] [place] [phone] 08/09/2025 1:00 PM EST Office Visit [place]monary Critical [place] 136 [facility] [address] [place] [address] Ramon Nixon MD 136 [facility] 302 [place] [address] Ksenia Jain, RT 05/04/2026 1:45 PM EDT Office Visit Stroke 800 [facility] [place] [address] Kristine Kelly MD PhD 800 [place] [address] 05/09/2026 1:00 PM EDT Follow Up Cardiovascular Medicine at 175 [facility] 175 [facility] [place] [address] Mike Hilario MD 175 [facility] Fl 2 [place] [address] Scheduled Orders Name Type Priority Associated Diagnoses [...] documented as of this encounter Care Teams Surgical Garment Fitter Relationship Specialty Start Date End Date Sal Jose MD [address] [place] [address] PCP - General Family Medicine 10/16/23 documented as of this encounter
--- OUTSIDE RECORDS SUMMARY | 2025-06-09 17:07 | XMS_ITS | Encounter Summary ---
Author Organization [facility] Address Unknown Care Team Providers Care Operations Specialists Name Role Phone Sal Jose MD Primary Care Provider [phone] Encounter Details Date Type Department Care Team (Late st Contact Info) Description 11/27/2021 Scanned Document [place]monary [place] 136 [facility] 302 [place] [address] External, Provider Social History Tobacco Use Types [...] [facility] [place] [address] Virgie Mast MD PhD 800 [place] [address] 08/09/2025 1:00 PM EST Office Visit Pulmonary Critical [place] 136 [facility] 302 [place], [place] [address] Ramon Nixon MD 136 [facility] 302 [place] [address] Ksenia Jain, RT 05/04/2026 1:45 PM EDT Office Visit Stroke 800 [facility] [place] [address] Kristine Kelly MD PhD 800 [place] [address] 05/09/2026 1:00 PM EDT Follow Up Cardiovascular Medicine at 175 [facility] 175 [facility] THIRD FLOOR [place], [place] [address] Mike Hilario MD 175 [facility] [address] 2 [place] [address] documented as of this encounter Visit Diagnoses Not on filedocumented in this encounter Care Teams Operations Specialists Relationship Specialty Start Date End Date Sal Jose MD [address] [phone] PCP - General Family Medicine 10/16/23 documented as of this encounter
--- OUTSIDE RECORDS SUMMARY | 2025-06-09 17:07 | XMS_ITS | Encounter Summary ---
Author Organization [facility] Address Unknown Care Team Providers Care Plasticator Name Role Phone Sal Jose MD Primary Care Provider [phone] Encounter Details Date Type Department Care Team (Late st Contact Info) Description 05/11/2024 Scanned Document [place]monary Critical [place] 136 [facility] [address] [place], [place] [address] Ramon Nixon MD 136 [facility] 302 [place] [phone] Social History Tobacco Use Types Packs/Day Years [...] at 800 [facility] 800 [place] [address] Virgie Mast MD PhD [address] [place], [place] [address], [place] [phone] 08/09/2025 1:00 PM EST Office Visit Pulmonary Critical [place] 136 [facility] [address] [place] [address] Ramon Nixon MD 136 [facility] 302 [place] [address] Cristobal Ksenia [place], RT 05/04/2026 1:45 PM EDT Office Visit Stroke 800 [facility] [place] [address] Kristine Kelly MD PhD 800 [place] [phone] 05/09/2026 1:00 PM EDT Follow Up Cardiovascular Medicine at 175 [facility] 175 [facility] [place] [address] Mike Hilario MD 175 [facility] [address] 2 [place] [address] documented as of this encounter Visit Diagnoses Not on filedocumented in this encounter Additional Health Concerns Assessment Noted Time PHQ-9 Depression Total Score: 0 04/07/20 2:31 PM EDT documented as of this encounter Care Teams Plasticator Relationship Specialty Start Date End Date Sal Jose MD [facility] [address] [address] PCP - General Family Medicine 10/16/23 documented as of this encounter
--- OUTSIDE RECORDS SUMMARY | 2025-06-09 17:07 | XMS_ITS | Encounter Summary ---
Author Organization [facility] Address Unknown Care Team Providers Care Marine Machinist Name Role Phone aSl Jose MD Primary Care Provider [phone] Encounter Details Date Type Department Care Team (Late st Contact Info) Description 11/19/2022 Scanned Document [facility]monary Critical [place] 136 [facility] 302 [place], [place] [address] External, Provider Social History Tobacco Use Types [...] [facility] [place] [address] Virgie Mast MD PhD 800 [place] [address] 08/09/2025 1:00 PM EST Office Visit Pulmonary Critical [place] 136 [facility] 302 [place], [place] [address] Ramon Nixon MD 136 [facility] 302 [place] [phone] Ksenia Jain, RT 05/04/2026 1:45 PM EDT Office Visit Stroke [address] [facility] [place] [address] Kristine Kelly MD PhD 800 [place] [address] 05/09/2026 1:00 PM EDT Follow Up Cardiovascular Medicine at 175 [facility] 175 [facility] THIRD FLOOR [place], [place] [address] Mike Hilario MD 175 [facility] [address] 2 [place] [address] documented as of this encounter Visit Diagnoses Not on filedocumented in this encounter Care Teams Marine Machinist Relationship Specialty Start Date End Date Sal Jose MD [address] [phone] PCP - General Family Medicine 10/16/23 documented as of this encounter
--- OUTSIDE RECORDS SUMMARY | 2025-06-09 17:07 | XMS_ITS | Clinical Summary ---
Author Organization [facility] Address 20 [place] [address] Phone Care Team Providers Care Insurance Sales Professional Name Role Phone Sal Jose MD Primary Care Provider [phone] Allergies Active Allergy Reactions Criticality Noted Date [...] EDT Follow Up Cardiovascular Medicine at [address] [place] [address] Mike Hilario MD NSVT (nonsustained ventricular tachycardia) (HC Code) (HC CODE) (Primary Dx); Chronic ischemic right MCA stroke; Aneurysm of middle cerebral artery; Scleroderma (HC CODE); ILD (interstitial lung disease) (HC Code) (HC CODE); History of pulmonary embolism 04/28/2025 1:45 PM EDT Office Visit YM Stroke 800 [place] [address] Kristine Kelly MD PhD Chronic ischemic right MCA stroke (Primary Dx); Occlusion of right middle cerebral artery; Carotid atherosclerosis, bilateral; NSVT (nonsustained ventricular tachycardia) (HC Code) ; Internal carotid artery stent present; Obstructive sleep apnea of adult; Impaired vision in both eyes; Vitamin B 12 deficiency; Aneurysm of middle cerebral artery (HC CODE) from Last 3 Months Immunizations Immunization Administration [...] Visit [facility] Epilepsy [facility] Seizures at 800 [facility] 800 [place] [address] Virgie Mast MD PhD 800 [place] [address] 08/09/2025 1:00 PM EST Office Visit [place]monary Critical [place] 136 [facility] [address] [place] [address] Ramon Nixon MD 136 [facility] 302 [place] [address] Ksenia Jain, RT 05/04/2026 1:45 PM EDT Office Visit YM Stroke 800 [place] [address] Kristine Kelly MD PhD 800 [place] [address] 05/09/2026 1:00 PM EDT Follow Up Cardiovascular Medicine at 175 [facility] 175 [facility] [place] [address] Mike Hilario MD [address] [facility] [address] [place] [phone] Health Maintenance Due Date Last Done Comments [...] 04/29/2020, Additional history exists Covid-19 vaccine series (2024- season) 2025 12/06/2021, 11/03/2020, 10/13/2020 Diabetes screening [...] QTC Interval 446 ms SRC EKG P Stout 65 deg SRC EKG QRS Stout 25 deg SRC EKG T Wave Stout 41 deg SRC EKG P-R Interval 162 [...] 136 - 144 mmol/L 07/23/2024 3:09 PM [facility] DEPARTMENT OF LABORATORY MEDICINE Potassium 4.2 3.3 - 5.3 mmol/L 07/23/2024 3:09 PM [facility] DEPARTMENT OF LABORATORY MEDICINE Chloride 105 98 - 107 mmol/L 07/23/2024 3:09 PM [facility] DEPARTMENT OF LABORATORY MEDICINE CO2 26 20 - 30 mmol/L 07/23/2024 3:09 PM [facility] DEPARTMENT OF LABORATORY MEDICINE Anion Gap 13 7 - 17 07/23/2024 3:09 PM [facility] DEPARTMENT OF LABORATORY MEDICINE Glucose 89 70 - 100 mg/dL 07/23/2024 3:09 PM [facility] DEPARTMENT OF LABORATORY MEDICINE BUN 13 8 - 23 mg/dL 07/23/2024 3:09 PM [facility] DEPARTMENT OF LABORATORY MEDICINE Creatinine 0.72 0.40 - 1.30 mg/dL 07/23/2024 3:09 PM [facility] DEPARTMENT OF LABORATORY MEDICINE Calcium 9.7 8.8 - 10.2 mg/dL 07/23/2024 3:09 PM [facility] DEPARTMENT OF LABORATORY MEDICINE BUN/Creatinine Ratio 18.1 8.0 - 23.0 07/23/2024 3:09 PM [facility] DEPARTMENT OF LABORATORY MEDICINE Total Protein 6.7 5.9 - 8.3 g/dL 024 3:09 PM [facility] DEPARTMENT OF LABORATORY MEDICINE Comment:As of 2023, th e reference interval for Total Protein has been changed from (6.6 to 8.7 g/dL) to (5.9 to 8.3 g/dL). Albumin 4.3 3.6 - 5.1 g/dL 07/23/2024 3:09 PM [facility] OF LABORATORY MEDICINE Comment:As of 2023, e reference interval for Albumin has been changed from (3.6 to 4.9 g/dL) to (3.6 to 5.1 g/dL). Total Bilirubin 0.6 <=1.2 mg/dL 07/23/20 24 3:09 PM [facility] DEPARTMENT OF LABORATORY MEDICINE Alkaline Phosphatase 113 9 - 122 U/L 07/23/2024 3:09 PM [facility] DEPARTMENT OF LABORATORY MEDICINE Alanine Aminotransferase (ALT) 27 10 - 35 U/L 07/23/2024 3:09 PM [facility] DEPARTMENT OF LABORATORY MEDICINE Comment:Calcium dobesilate c an cause artificially low ALT results at therapeutic concentrations Aspartate Aminotransferase (AST) 23 10 - 35 U/L 07/23/2024 3:09 PM [facility] DEPARTMENT OF LABORATORY MEDICINE Globulin 2.4 2.0 - 3.9 g/dL 07/23/2024 3:09 PM [facility] DEPARTMENT OF LABORATORY MEDICINE Comment:As of 2023, th e reference interval for Globulin has been changed from (2.3 to 3.5 g/dL) to (2.0 to 3.9 g/dL). A/G Ratio 1.8 1.0 - 2.2 07/23/2024 3:09 PM [facility] DEPARTMENT OF LABORATORY MEDICINE AST/ALT Ratio 0.9 Reference Range Not Established 07/23/2024 3:09 PM [facility] DEPARTMENT OF LABORATORY MEDICINE eGFR (Creatinine) >60 >=60 mL/min/1.73m2 07/23/2024 3:09 PM [facility] DEPARTMENT OF LABORATORY MEDICINE Comment: [facility] utilizes CKD-EPI Creatinine 2020 to report eGFR. Values < 60 mL/min/1.73 m2 may indicate CKD if present for more than three months AND creatinine is at steady state. The eGFR provides a rough estimate of kidney function. For further guidance, please refer to the CKD: Adult Java Front End Web Developer Signature pathway. Creatinine Delta 0.01 See Comment 024 3:09 PM [facility] DEPARTMENT OF LABORATORY MEDICINE Comment: Delta creatinine [...] System LAB BLOOD ORDERABLES Evelin smith Result [facility] DEPARTMENT OF LABORATORY MEDICINE [address] [place] [address] from Last 3 Months or Most Recently Relevant to Health Maintenance [place] [address] [address] [id number] MEDICAID [place] 1[place] [address] [id number] MEDICAID [place] [address] [facility] [place] [address] [id number] MEDICAID MEDIC[place] 1[place] [address] [facility] Care Teams Insurance Sales Professional Relationship Specialty Start Date End Date Sal Jose MD [address] [place] [phone] PCP - General Family Medicine 10/16/23
--- OUTSIDE RECORDS SUMMARY | 2025-06-09 17:07 | XMS_ITS | Patient Health Record ---
Author Organization [facility] Address [address] [place] [phone] Care Team Providers Care Chief Engineer Name Role Phone Jayant Walker Primary Care Provider Venkatesh Mauro [phone] Allergies Allergen (clinical drug ingredient) Drug/Non Drug [...] Status Risk Notes Problem Colon cancer screening (783515140) Colon cancer screening (Z12.11) Active confirmed Problem Irregular bowel habits (646213173) Irregular bowel habits (R19.8) Active confirmed Problem Long-term current use of anticoagulant (734429678) Anticoagulant long-term use (Z79.01) Active confirmed Problem 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 Problem Gastroesophageal reflux disease (483962554) GERD without esophagitis (K21.9) Active confirmed Problem History of polyp of colon (situation) (250299638) History of colon polyps (Z86.0100) Active confirmed [...] N/A Encounters Encounter Location Date Provider Diagnosis [facility] [address] [place] [phone] 02/08/2025 Venkatesh Marsh History of colon gely yps Z86.0100 ; GERD without esophagitis K21.9 ; Colon cancer screening Z12.11 ; Anticoagulant long-term use Z79.01 ; Irregular bowel habits R19.8 and Scleroderma of esophagus M34.1 [facility] [address] [place] [phone] 02/08/2025 Venkatesh Marsh [facility] [address] [place] [address] 04/21/2025 Venkatesh Marsh Assessments Encounter Date Diagnosis [...] to speak with her stroke doctor at [facility] who prescribes her clopidogrel so as to be sure that is not contraindicated from their standpoint. I did recommend a follow-up upper endoscopy given the description of her previous endoscopies and recommendations from her credit card associate in [place], [place]. She is not having any [...] but was advised to speak with her [facility] physicians about those recommendations to be sure there is no contraindication to them. I advised her that she might need Lovenox for bridging while off the clopidogrel and pentoxifylline. However, I advised her that would be up to the physicians at [facility]. These procedures will be scheduled for her [...] summaries of her medical issues from the [facility] physician such that we can share them with the medical staff and anesthesiologist at [facility] prior to her procedures. If it turns out that her [facility] physicians do not think she is stable [...] to speak with her stroke doctor at [facility] who prescribes her clopidogrel so as to be sure that is not contraindicated from their standpoint. I did recommend a follow-up upper endoscopy given the description of her previous endoscopies and recommendations from her credit card associate in [place], [place]. She is not having any [...] but was advised to speak with her [facility] physicians about those recommendations to be sure there is no contraindication to them. I advised her that she might need Lovenox for bridging while off the clopidogrel and pentoxifylline. However, I advised her that would be up to the physicians at [facility]. These procedures will be scheduled for her [...] summaries of her medical issues from the [facility] [place] physician such that we can share them with the medical staff and anesthesiologist at [facility] prior to her procedures. If it turns out that her [facility] physicians do not think she is stable for these procedures we can always postpone them to a later date. Roman was comfortable with this plan. Thank you again for allowing me to participate in Roman's care. I shall continue to keep you advised of her progress. 02/08/2025 Colon cancer screening (ICD-10 - Z12.11) Need names of your [place] doctors and we will need letters with [...] to speak with her stroke doctor at [facility] who prescribes her clopidogrel so as to be sure that is not contraindicated from their standpoint. I did recommend a follow-up upper endoscopy given the description of her previous endoscopies and recommendations from her credit card associate in [place], [place]. She is not having any [...] but was advised to speak with her [facility] physicians about those recommendations to be sure there is no contraindication to them. I advised her that she might need Lovenox for bridging while off the clopidogrel and pentoxifylline. However, I advised her that would be up to the physicians at [facility]. These procedures will be scheduled for her [...] summaries of her medical issues from the [facility] [place] physician such that we can share them with the medical staff and anesthesiologist at [facility] prior to her procedures. If it turns out that her [place] physicians do not think she is stable [...] to speak with her stroke doctor at [facility] who prescribes her clopidogrel so as to be sure that is not contraindicated from their standpoint. I did recommend a follow-up upper endoscopy given the description of her previous endoscopies and recommendations from her credit card associate in [place], [place]. She is not having any [...] but was advised to speak with her [facility] physicians about those recommendations to be sure there is no contraindication to them. I advised her that she might need Lovenox for bridging while off the clopidogrel and pentoxifylline. However, I advised her that would be up to the physicians at [facility]. These procedures will be scheduled for her [...] summaries of her medical issues from the [facility] [place] physician such that we can share them with the medical staff and anesthesiologist at [facility] prior to her procedures. If it turns out that her [facility] [place] physicians do not think she is stable [...] to speak with her stroke doctor at [facility] who prescribes her clopidogrel so as to be sure that is not contraindicated from their standpoint. I did recommend a follow-up upper endoscopy given the description of her previous endoscopies and recommendations from her credit card associate in [place], [place]. She is not having any [...] but was advised to speak with her [facility] physicians about those recommendations to be sure there is no contraindication to them. I advised her that she might need Lovenox for bridging while off the clopidogrel and pentoxifylline. However, I advised her that would be up to the physicians at [facility]. These procedures will be scheduled for her [...] summaries of her medical issues from the [place] physician such that we can share them with the medical staff and anesthesiologist at [facility] prior to her procedures. If it turns out that her [facility] [place] physicians do not think she is stable [...] to speak with her stroke doctor at [facility] who prescribes her clopidogrel so as to be sure that is not contraindicated from their standpoint. I did recommend a follow-up upper endoscopy given the description of her previous endoscopies and recommendations from her credit card associate in [place], [place]. She is not having any [...] but was advised to speak with her [facility] physicians about those recommendations to be sure there is no contraindication to them. I advised her that she might need Lovenox for bridging while off the clopidogrel and pentoxifylline. However, I advised her that would be up to the physicians at [facility]. These procedures will be scheduled for her [...] summaries of her medical issues from the [facility] physician such that we can share them with the medical staff and anesthesiologist at [facility] prior to her procedures. 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
--- OUTSIDE RECORDS SUMMARY | 2025-06-09 17:07 | XMS_ITS | Encounter Summary ---
Author Organization [facility] Address Unknown Care Team Providers Care Buhr Mill Operator Name Role Phone Sal Jose MD Primary Care Provider [phone] Encounter Details Date Type Department Care Team (Late st Contact Info) Description 11/27/2021 Scanned Document Pulmonary Critical [place] 136 [facility] 302 [place] [address] Gaviota Rivera, YOSI Social History Tobacco Use [...] [facility] [place] [address] Virgie Mast MD PhD [address] [place] [phone] 08/09/2025 1:00 PM EST Office Visit [place]monary Critical [place] 136 [facility] 302 [place], [place] [address] Ramon Nixon MD 136 [facility] 302 [place] [phone] Ksenia Jain, RT 05/04/2026 1:45 PM EDT Office Visit Stroke [address] [facility] [place] [address] Kristine Kelly MD PhD 800 [place] [phone] 05/09/2026 1:00 PM EDT Follow Up Cardiovascular Medicine at 175 [facility] 175 [facility] [place] [address] Mike Hilario MD 175 [facility] [address] 2 [place] [phone] documented as of this encounter Visit Diagnoses Not on filedocumented in this encounter Care Teams Buhr Mill Operator Relationship Specialty Start Date End Date Sal Jose MD [address] [phone] PCP - General Family Medicine 10/16/23 documented as of this encounter
--- OUTSIDE RECORDS SUMMARY | 2025-06-09 17:07 | XMS_ITS | Encounter Summary ---
Author Organization [facility] Address [address] [place] [phone] Care Team Providers Care Psychology Fellow Name Role Phone Sal Jose MD Primary Care Provider Encounter Details Date Type Department Care Team (Late Contact Info) Description 07/21/2024 Transcribed Orders [facility] Laboratory Specimens 55 [place], [place] [address] System, Provider Not In CRST syndrome (HC [...] Visit [facility] 800 [facility] 800 [place], [place] [address] Virgie Mast MD PhD [address] [place] [phone] 08/09/2025 1:00 PM EST Office Visit Pulmonary Critical [place] 136 [facility] [address] [place], [place] [address] Ramon Nixon MD 136 [facility] 302 [place] [phone] Ksenia Jain, RT 05/04/2026 1:45 PM EDT Office Visit Stroke 800 [facility] Lower [place], [place] [address] Kristine Kelly MD PhD 800 [place] [phone] 05/09/2026 1:00 PM EDT Follow Up Cardiovascular Medicine at 175 [facility] 175 [facility] THIRD FLOOR [place], [place] [address] Mike Hilario MD 175 [facility] [address] 2 [place] [phone] documented as of this encounter Results * Sedimentation rate (ESR) (07/23/2024 1:13 PM EST) Sedimentation Rate (ESR) 12 0 - 20 mm/hr 07/23/2024 2:55 PM EST [facility] DEPARTMENT OF LABORATORY MEDICINE Blood Venipuncture / Unknown 07/23/2024 1:13 PM EST 07/23/2024 2:24 PM EST us Provider Not In System LAB BLOOD ORDERABLES Evelin smith Result [facility] DEPARTMENT OF LABORATORY MEDICINE [address] [place] [address] documented in this encounter Visit Diagnoses Diagnosis 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
--- OUTSIDE RECORDS SUMMARY | 2025-06-09 17:07 | XMS_ITS | Encounter Summary ---
Author Organization [facility] Address [address] [place] [phone] Care Team Providers Care Market Development Analyst Name Role Phone Sal Jose MD Primary Care Provider [phone] Encounter Details Date Type Department Care Team (Late Contact Info) Description 10/28/2023 Scanned Document [facility] [address] [place] [address] Joao Loredo MD [address] [place] [phone] Social History Tobacco Use Types Packs/Day Years [...] Office Visit [facility] at [address] [place] [phone] Virgie Mast MD PhD [address] [place] [place] [phone] 08/09/2025 1:00 PM EST Office Visit [place] Critical [place] [address] [place] [address] [address] [place] [address] Ramon Nixon MD 136 [facility] 302 [place] [phone] Cristobal Ksenia Carroll, RT 05/04/2026 1:45 PM EDT Office Visit Stroke 800 [facility] [place] [address] Kristine Kelly MD PhD 800 [facility] [place] [address] 05/09/2026 1:00 PM EDT Follow Up Cardiovascular Medicine at 175 [facility] 175 [facility] [place] [address] Mike Hilario MD 175 [facility] [address] 2 [place] [address] documented as of this encounter Procedures Procedure [...] MRI Result Scan (05/12/2020 11:48 AM EDT) [facility] Provider IMG SCAN REPORTS Final Resul t * MRI Result Scan (04/12/2020 12:01 PM EDT) Historical Provider IMG SCAN REPORTS Final Resul t * MRI Result Scan (04/12/2020 11:55 AM EDT) Result [facility] Historical Provider IMG SCAN REPORTS Final Resul t * MRI Result Scan (04/08/2020 12:04 PM EDT) Result [facility] Provider IMG SCAN REPORTS Final Resul t * CT Result Scan (02/25/2020 12:11 PM EDT) Historical Provider IMG SCAN REPORTS Final Resul t * MRI Result Scan (02/01/2020 12:16 PM EDT) Historical Provider IMG SCAN REPORTS Final Resul t * CT Result Scan (12/25/2018 12:21 PM EDT) [facility] Provider IMG SCAN REPORTS Final Resul t * CT Result Scan (08/25/2015 12:26 PM EST) Historical Provider IMG SCAN REPORTS Final Resul t * CT Result Scan (09/28/2012 12:30 PM EST) Historical Provider IMG SCAN REPORTS Final Resul t * CT Result Scan (09/07/2012 12:34 PM EST) [facility] Provider IMG SCAN REPORTS Final Resul t * CT Result Scan (02/13/2012 12:38 PM EDT) Result [facility] Provider IMG SCAN REPORTS Final Resul t * CT Result Scan (12/17/2010 1:03 PM EDT) Result [facility] Provider IMG SCAN REPORTS Final Resul t * CT Result Scan (12/17/2010 1:00 PM EDT) Result [facility] Provider IMG SCAN REPORTS Final Resul t * CT Result Scan (12/17/2010 12:56 PM EDT) Result [facility] Provider IMG SCAN REPORTS Final Resul t * CT Result Scan (12/17/2010 12:52 PM EDT) Result [facility] Provider IMG SCAN REPORTS Final Resul t * CT Result Scan (12/17/2010 12:46 PM EDT) Result [facility] Provider IMG SCAN REPORTS Final Resul t * CT Result Scan (12/17/2010 12:41 PM EDT) Result [facility] Provider IMG SCAN REPORTS Final Resul t documented in this encounter Visit Diagnoses Not on filedocumented in this encounter Care Teams Market Development Analyst Relationship Specialty Start Date End Date Sal Jose MD [address] [place] [phone] PCP - General Family Medicine 10/16/23 documented as of this encounter
--- OUTSIDE RECORDS SUMMARY | 2025-06-09 17:07 | XMS_ITS | Encounter Summary ---
Author Organization [facility] Address [address] [place] [phone] Care Team Providers Care Mechanical Equipment Sales Engineer Name Role Phone Sal Jose MD Primary Care Provider [phone] Encounter Details Date Type Department Care Team (Late Contact Info) Description 10/28/2023 Scanned Document [facility] SCHEDULING 25 [place], [place] [address] Provider, Historical . Social History Tobacco Use [...] 800 [facility] [place] [address] Virgie Mast MD PhD 800 [place] [phone] 08/09/2025 1:00 PM EST Office Visit [place] 136 [facility] [address] [place], [place] [address] Ramon Nixon MD [address] [place] [address] 302 [place] [address] SoaresZakiKsenia, RT 05/04/2026 1:45 PM EDT Office Visit Stroke 800 [facility] [place] [address] Kristine Kelly MD PhD 800 [place] [address] 05/09/2026 1:00 PM EDT Follow Up Cardiovascular Medicine at 175 [facility] 175 [facility] THIRD FLOOR [place], [place] [address] Mike Hilario MD 175 [facility] [address] 2 [place] [phone] documented as of this encounter Procedures Procedure [...] on filedocumented in this encounter Care Teams Mechanical Equipment Sales Engineer Relationship Specialty Start Date End Date Sal Jose MD [facility]3 [facility] [address] [place] [phone] PCP - General Family Medicine 10/16/23 documented as of this encounter
--- OUTSIDE RECORDS SUMMARY | 2025-06-09 17:07 | XMS_ITS | Encounter Summary ---
Author Organization [facility] and [facility] Address [address] [place] [address] Care Team Providers Care Aviation Electronic Warfare Operator Name Role Phone Sal Jose MD Primary Care Provider [phone] Encounter Details Date Type Department Care Team (Late Contact Info) Description 12/04/2023 Transcribed Orders [facility] Laboratory Specimens [address] [place] [address] System, Provider Not In CREST variant of [...] Visit [facility] Ep[facility] Seizures at 800 [facility] 800 [facility] [place] [address] Virgie Mast MD PhD 800 [place] [phone] 08/09/2025 1:00 PM EST Office Visit [place] 136 [facility] [address] [place] [address] Ramon Ron MD [address] [place] [address] [address] [place] [address] LavelleKrishna, Ksenia Carroll, RT 05/04/2026 1:45 PM EDT Office Visit Stroke 800 [facility] Lower Level [place], [place] [phone] Kristine Kelly MD PhD [address] [place] [address] 05/09/2026 1:00 PM EDT Follow Up Cardiovascular Medicine at 175 [facility] 175 [facility] [place] [address] Mike Hilario MD 175 [facility] Fl 2 [place] [address] documented as of this encounter Results * Sedimentation rate (ESR) (05/20/2024 12:53 PM EDT) Pathologist [facility] Sedimentation Rate (ESR) 4 0 - 20 mm/hr 05/20/2024 1:59 PM EDT [facility] Blood Venipuncture / Unknown 05/20/2024 12:53 PM EDT 05/20/2024 1:31 PM EDT us Provider Not In System LAB BLOOD ORDERABLES Evelin smith Result Performing Organization Address City/State/[facility] Co de Phone Number [facility] [address] [place] [address] * (ABNORMAL) C-reactive protein (CRP) (04/15/2024 12:20 PM EDT) CRP, High Sensitivity 3.1(H) See comment mg/L 04/15/2024 3:42 PM EDT [facility] Comment: hs-CRP [...] Result Performing Organization Address [facility] Co de Phone Number [facility] [address] [place] [address] * (ABNORMAL) Sedimentation rate (ESR) (04/15/2024 12:20 PM EDT) Sedimentation Rate (ESR) 24(H) 0 - 20 mm/hr 04/15/2024 3:41 PM EDT [facility] Blood Venipuncture / Unknown 04/15/2024 12:20 PM EDT 04/15/2024 2:54 PM EDT us Provider Not In System LAB BLOOD ORDERABLES Evelin l Result Performing Organization Address [facility] Co de Phone Number [facility] [address] [place] [address] * (ABNORMAL) C-reactive protein (CRP) (03/17/2024 10:36 AM EDT) CRP, High Sensitivity 6.3(H) See comment mg/L 03/17/2024 11:47 AM EDT [facility] Comment: hs-CRP [...] Result Performing Organization Address [facility]/ZIP Co de Phone Number [facility] [address] [place] [address] * (ABNORMAL) Sedimentation rate (ESR) (03/17/2024 10:36 AM EDT) Sedimentation Rate (ESR) 23(H) 0 - 20 mm/hr 03/17/2024 11:46 AM EDT [facility] Blood Venipuncture / Unknown 03/17/2024 10:36 AM EDT 03/17/2024 11:15 AM EDT us Provider Not In System LAB BLOOD ORDERABLES Evelin l Result Performing Organization Address [facility] de Phone Number [facility] [address] [place] [address] * (ABNORMAL) C-reactive protein (CRP) (02/20/2024 3:41 PM EDT) CRP, High Sensitivity 8.9(H) See comment mg/L 02/20/2024 4:36 PM EDT [facility] Comment: hs-CRP [...] Result Performing Organization Address [facility] Co de Phone Number [facility] [address] [place] [address] * Sedimentation rate (ESR) (02/20/2024 3:41 PM EDT) Sedimentation Rate (ESR) 18 0 - 20 mm/hr 02/20/2024 7:04 PM EDT [facility] Blood Venipuncture / Unknown 02/20/2024 3:41 PM EDT 02/20/2024 4:04 PM EDT Provider Not In System LAB BLOOD ORDERABLES Evelin l Result Performing Organization Address [facility] Co de Phone Number [facility] [address] [place] [address] * (ABNORMAL) C-reactive protein (CRP) (12/09/2023 1:52 PM EDT) CRP, High Sensitivity 4.4(H) See comment mg/L 12/09/2023 4:44 PM EDT [facility] Comment: hs-CRP [...] Result Performing Organization Address [facility] Co de Phone Number [facility] [address] [place] [address] * Sedimentation rate (ESR) (12/09/2023 1:52 PM EDT) Sedimentation Rate (ESR) 10 0 - 20 mm/hr 12/09/2023 5:08 PM EDT [facility] Blood Venipuncture / Unknown 12/09/2023 1:52 PM EDT 12/09/2023 4:20 PM EDT us Provider Not In System LAB BLOOD ORDERABLES Evelin l Result [facility] [address] [place] [address] documented in this encounter Visit Diagnoses Diagnosis 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
--- OUTSIDE RECORDS SUMMARY | 2025-06-09 17:07 | XMS_ITS | Encounter Summary ---
Author Organization [facility] and [facility] Address [address] [place] [phone] Care Team Providers Care Beauty Director Name Role Phone Sal Jose MD Primary Care Provider Reason for Visit * Reason Onset Date Comments Holter/Event Monitor 11/13/2023 Trying to E nroll Pt for MCT monitor Encounter Details Date Type Department Care Team (Late st Contact Info) Description 11/13/2023 Telephone [facility] Stroke 800 [place], [place] [address] Kristine Kelly MD PhD 800 [place] [phone] Holter/Event Monitor (Trying to Enroll Pt for [...] [facility] [place] [address] Virgie Mast MD PhD 800 [place] [phone] 08/09/2025 1:00 PM EST Office Visit [place] [address] [phone] Ramon Nixon MD [address] [place] [address] [place] [address] Ksenia Jain Carly, RT 05/04/2026 1:45 PM EDT Office Visit Stroke 800 [facility] [place] [address] Kristine Kelly MD PhD 800 [place] [phone] 05/09/2026 1:00 PM EDT Follow Up Cardiovascular Medicine at 175 [facility] 175 [facility] THIRD FLOOR [place], [place] [address] Mike Hilario MD 175 [facility] 2 [place] [address] documented as of this encounter Visit Diagnoses Not on filedocumented in this encounter Care Teams Beauty Director Relationship Specialty Start Date End Date Sal Jose MD 1033 [facility] [address] [place] [phone] PCP - General Family Medicine 10/16/23 documented as of this encounter
--- OUTSIDE RECORDS SUMMARY | 2025-06-09 17:07 | XMS_ITS | Encounter Summary ---
Author Organization [facility] Address [address] [place] [address] Care Team Providers Care Duplicating Machine Mechanic Name Role Phone Sal Jose MD Primary Care Provider Encounter Details Date Type Department Care Team (Late st Contact Info) Description 08/14/2023 Transcribed Orders EXTERNAL REFERRAL SOURCE 20 [place] [address] Referral, Self Social History Tobacco Use Types [...] [facility] [place] [address] Virgie Mast MD PhD 800 [place] [phone] 08/09/2025 1:00 PM EST Office Visit [place]monary Critical [place] 136 [facility] 302 [place], [place] [address] Ramon Nixon MD [address] [place] [address] 302 [place] [phone] Ksenia Jain, RT 05/04/2026 1:45 PM EDT Office Visit Stroke 800 [facility] Lower [place], [place] [address] Kristine Kelly MD PhD 800 [place] [phone] 05/09/2026 1:00 PM EDT Follow Up Cardiovascular Medicine at 175 [facility] 175 [facility] THIRD FLOOR [place], [place] [address] Mike Hilario MD 175 [facility] [address] 2 [place] [phone] documented as of this encounter Visit Diagnoses Not on filedocumented in this encounter Care Teams Duplicating Machine Mechanic Relationship Specialty Start Date End Date Sal Jose MD [address] [phone] PCP - General Family Medicine 10/16/23 documented as of this encounter
--- OUTSIDE RECORDS SUMMARY | 2025-06-09 17:07 | XMS_ITS | Encounter Summary ---
Author Organization [facility] and [facility] Address [address] [place] [address] Care Team Providers Care Director Of Corporate Marketing Name Role Phone Sal Jose MD Primary Care Provider Encounter Details Date Type Department Care Team (Late st Contact Info) Description 10/17/2023 Scanned Document [facility] Stroke 800 [place], [place] [address] Kristine Kelly MD PhD [address] [place] [phone] Social History Tobacco Use Types Packs/Day [...] Visit [facility] at 800 [facility] 800 [place], [place] [address] Virgie Mast MD PhD 800 [place] [phone] 08/09/2025 1:00 PM EST Office Visit Pulmonary Critical [place] 136 [facility] [address] [place] [address] Ramon Nixon MD 136 [facility] [address] [place] [address] Ksenia Jain, RT 05/04/2026 1:45 PM EDT Office Visit Stroke 800 [facility] [place] [address] Kristine Kelly MD PhD 800 [place] [phone] 05/09/2026 1:00 PM EDT Follow Up Cardiovascular Medicine at 175 [facility] 175 [facility] [place] [address] Mike Hilario MD 175 [facility] [address] 2 [place] [phone] documented as of this encounter Visit Diagnoses Not on filedocumented in this encounter Care Teams Director Of Corporate Marketing Relationship Specialty Start Date End Date Sal Jose MD [address] [phone] PCP - General Family Medicine 10/16/23 documented as of this encounter
--- OUTSIDE RECORDS SUMMARY | 2025-06-09 17:07 | XMS_ITS | Encounter Summary ---
Author Organization [facility] and [facility] Address [address] [place] [address] Care Team Providers Care Lens Generating Machine Tender Name Role Phone Sal Jose MD Primary Care Provider Encounter Details Date Type Department Care Team (Late Contact Info) Description 10/28/2023 Scanned Document [facility] at [address] [place] [address] Joao Loredo MD [address] [place] [phone] Social History Tobacco Use Types Packs/Day Years [...] Visit [facility] at [address] [place] [address] Virgie Mast MD PhD [address] [place] [phone] 08/09/2025 1:00 PM EST Office Visit [place] [address] [place] [address] [address] [place] [address] Ramon Nixon MD 136 [facility] [address] 302 [place] [address] Ksenia Jain, RT 05/04/2026 1:45 PM EDT Office Visit Stroke 800 [facility] [place] [address] Kristine Kelly MD PhD 800 [place] [phone] 05/09/2026 1:00 PM EDT Follow Up Cardiovascular Medicine at 175 [facility] 175 [facility] THIRD [place]LOOR [place], [place] [address] Mike Hilario MD 175 [facility] [address] 2 [place] [phone] documented as of this encounter Visit Diagnoses Not on filedocumented in this encounter Care Teams Lens Generating Machine Tender Relationship Specialty Start Date End Date Sal Jose MD [address] [phone] PCP - General Family Medicine 10/16/23 documented as of this encounter
--- OUTSIDE RECORDS SUMMARY | 2025-06-09 17:07 | XMS_ITS | Encounter Summary ---
Author Organization [facility] Address Unknown Care Team Providers Care Cabinet Mounter Name Role Phone Sal Jose MD Primary Care Provider [phone] Encounter Details Date Type Department Care Team (Late st Contact Info) Description 08/13/2023 Scanned Document Pulmonary Critical [place] [address] [facility] 302 [place], [place] [address] External, Provider Social History Tobacco Use Types [...] Hospital 800 [facility] [place] [address] Virgie Mast MD PhD 800 [place] [phone] 08/09/2025 1:00 PM EST Office Visit [place] 136 [facility] 302 [place], [place] [address] Ramon Nixon MD 136 [facility] 302 [place] [phone] Ksenia Jain, RT 05/04/2026 1:45 PM EDT Office Visit Stroke 800 [facility] [place] [address] Kristine Kelly MD PhD 800 [place] [phone] 05/09/2026 1:00 PM EDT Follow Up Cardiovascular Medicine at 175 [facility] 175 [facility] THIRD FLOOR [place], [place] [address] Mike Hilario MD 175 [facility] Fl 2 [place] [phone] documented as of this encounter Visit Diagnoses Not on filedocumented in this encounter Care Teams Cabinet Mounter Relationship Specialty Start Date End Date Sal Jose MD [address] [phone] PCP - General Family Medicine 10/16/23 documented as of this encounter
--- OUTSIDE RECORDS SUMMARY | 2025-06-09 17:07 | XMS_ITS | Encounter Summary ---
Author Organization [facility] Address Unknown Care Team Providers Care Rap Artist Name Role Phone Sal Jose MD Primary Care Provider [phone] Encounter Details Date Type Department Care Team (Late st Contact Info) Description 08/27/2023 Scanned Document [facility] [place] 136 [facility] 302 [place], [place] [address] External, Provider Social History Tobacco Use Types [...] [facility] at 800 [facility] 800 [facility] [place] [address] Virgie Mast MD PhD 800 [place] [phone] 08/09/2025 1:00 PM EST Office Visit Pulmonary Critical [place] 136 [facility] 302 [place], [place] [address] Ramon Nixon MD 136 [facility] 302 [place] [phone] Ksenia Jain, RT 05/04/2026 1:45 PM EDT Office Visit Stroke 800 [facility] [place] [address] Kristine Kelly MD PhD 800 [facility] [place] [address] 05/09/2026 1:00 PM EDT Follow Up Cardiovascular Medicine at 175 [facility] 175 [facility] THIRD FLOOR [place], [place] [address] Mike Hilario MD 175 [facility] [address] 2 [place] [phone] documented as of this encounter Procedures Procedure Name Priority Date/Time Associated Diagnosis Comments CARDIAC ECHO RESULT SCAN Routine 08/27/2023 documented in this encounter Results * Cardiac Echo Result Scan (08/27/2023) Provider External CV CARDIAC REPORT (CVR) Final Result documented in this encounter Visit Diagnoses Not on filedocumented in this encounter Care Teams Rap Artist Relationship Specialty Start Date End Date Sal Jose MD [address] [phone] PCP - General Family Medicine 10/16/23 documented as of this encounter
[2025-06-13 10:05] VITALS: BP 132/74
--- OUTSIDE RECORDS SUMMARY | 2025-06-13 11:26 | XMS_ITS | Encounter Summary ---
Author Organization [facility] Address [address] [place] [phone] Care Team Providers Care Manufacturing Teacher Name Role Phone Sal Jose MD Primary Care Provider Encounter Details Date Type Department Care Team (Late Contact Info) Description 10/28/2023 Scanned Document [facility] at [address] [place] [address] Joao Loredo MD [address] [place] [phone] Social History Tobacco Use Types Packs/Day Years [...] Visit [facility] Ep[facility] Seizures at [address] [place] [address] 32[address] Virgie Mast MD PhD [address] [place] [phone] 08/09/2025 1:00 PM EST Office Visit [place] [address] [place] [address] [address] [place] [address] Ramon Nixon MD 136 [facility] 302 [place] [address] Ksenia Jain, RT 05/04/2026 1:45 PM EDT Office Visit Stroke 800 [facility] [place] [address] Kristine Kelly MD PhD 800 [place] [phone] 05/09/2026 1:00 PM EDT Follow Up Cardiovascular Medicine at 175 [facility] 175 [facility] THIRD FLOOR [place], [place] [address] Mike Hilario MD 175 [facility] [address] 2 [place] [address] documented as of this encounter Visit Diagnoses Not on filedocumented in this encounter Care Teams Manufacturing Teacher Relationship Specialty Start Date End Date Sal Jose MD [address] [phone] PCP - General Family Medicine 10/16/23 documented as of this encounter
--- OUTSIDE RECORDS SUMMARY | 2025-06-13 11:26 | XMS_ITS | Encounter Summary ---
Author Organization [facility] Address 20 [place] [address] Care Team Providers Care Licensed Physical Therapist Assistant Name Role Phone Sal Jose MD Primary Care Provider Encounter Details Date Type Department Care Team (Late st Contact Info) Description 08/14/2023 Transcribed Orders EXTERNAL REFERRAL SOURCE 20 [place] [address] Referral, Self Social History Tobacco Use Types [...] [facility] [place] [address] Virgie Mast MD PhD 800 [place] [phone] 08/09/2025 1:00 PM EST Office Visit [place]monary Critical [place] 136 [facility] 302 [place], [place] [address] Ramon Nixon MD [address] [place] [address] 302 [place] [address] Ksenia Jain, RT 05/04/2026 1:45 PM EDT Office Visit Stroke 800 [facility] Lower Level [place], [place] [address] Kristine Kelly MD PhD 800 [place] [address] 05/09/2026 1:00 PM EDT Follow Up Cardiovascular Medicine at 175 [facility] 175 [facility] THIRD FLOOR [place], [place] [address] Mike Hilario MD 175 [facility] [address] 2 [place] [phone] documented as of this encounter Visit Diagnoses Not on filedocumented in this encounter Care Teams Licensed Physical Therapist Assistant Relationship Specialty Start Date End Date Sal Jose MD [address] [phone] PCP - General Family Medicine 10/16/23 documented as of this encounter
--- OUTSIDE RECORDS SUMMARY | 2025-06-13 11:26 | XMS_ITS | Encounter Summary ---
Author Organization [facility] and [facility] Address [address] [place] [address] Care Team Providers Care At Risk Specialist Name Role Phone Sal Jose MD Primary Care Provider [phone] Encounter Details Date Type Department Care Team (Late Contact Info) Description 10/28/2023 Scanned Document CARE [facility]ENTER SCHEDULING 25 [place], [place] [address] Provider, Historical . Social History Tobacco Use [...] Office Visit Epilepsy & Seizures at 800 [facility] 800 [facility] [place] [address] Virgie Mast MD PhD 800 [place] [phone] 08/09/2025 1:00 PM EST Office Visit [place]monary Critical [place] 136 [facility] [address] [place], [place] [address] Ramon Nixon MD [address] [place] [address] 302 [place] [address] SoaresZakiKsenia, RT 05/04/2026 1:45 PM EDT Office Visit Stroke 800 [facility] [place] [address] Kristine Kelly MD PhD 800 [place] [address] 05/09/2026 1:00 PM EDT Follow Up Cardiovascular Medicine at 175 [facility] 175 [facility] THIRD FLOOR [place], [place] [address] Mike Hilario MD 175 [facility] [address] 2 [place] [address] documented as of this encounter Procedures Procedure [...] on filedocumented in this encounter Care Teams At Risk Specialist Relationship Specialty Start Date End Date Sal Jose MD [facility] [address] [place] [phone] PCP - General Family Medicine 10/16/23 documented as of this encounter
--- OUTSIDE RECORDS SUMMARY | 2025-06-13 11:26 | XMS_ITS | Encounter Summary ---
Author Organization [facility] Address [address] [address] Phone Care Team Providers Care Soft Work Cigar Machine Operator Name Role Phone Sal Jose MD Primary Care Provider [phone] Encounter Details Date Type Department Care Team (Late Contact Info) Description 05/25/2024 Scanned Document [facility] - [address] [address]84[address] Nain Cat MD [address] [place] [phone] Social History Tobacco Use Types Packs/Day [...] [facility] Ep[facility] Seizures at 800 [facility] 800 [place] [address] Virgie Mast MD PhD 800 [place] [phone] 08/09/2025 1:00 PM EST Office Visit Pulmonary Critical [place] 136 [facility] [address] [place], [place] [address] Ramon Nixon MD 136 [facility] 302 [place] [address] Ksenia Jain, RT 05/04/2026 1:45 PM EDT Office Visit Stroke 800 [place] [address] Kristine Kelly MD PhD 800 [place] [address] 05/09/2026 1:00 PM EDT Follow Up Cardiovascular Medicine at 175 [facility] 175 [facility] THIRD FLOOR [place], [place] [address] Mike Hilario MD 175 [facility] 2 [place] [address] documented as of this encounter Visit Diagnoses Not on filedocumented in this encounter Additional Health Concerns Assessment Noted Time PHQ-9 Depression Total Score: 0 04/07/20 2:31 PM EDT documented as of this encounter Care Teams Soft Work Cigar Machine Operator Relationship Specialty Start Date End Date Sal Jose MD [facility] [address] [address] PCP - General Family Medicine 10/16/23 documented as of this encounter
--- OUTSIDE RECORDS SUMMARY | 2025-06-13 11:26 | XMS_ITS | Encounter Summary ---
Author Organization [facility] Address Unknown Care Team Providers Care Tank Pumper Panelboard Name Role Phone Sal Jose MD Primary Care Provider [phone] Encounter Details Date Type Department Care Team (Late st Contact Info) Description 08/27/2023 Scanned Document [place]monary Critical [place] 136 [facility] 302 [place], [place] [address] External, Provider Social History Tobacco Use Types [...] Care [facility] [place] [address] Virgie Mast MD PhD 800 [place] [address] 08/09/2025 1:00 PM EST Office Visit [place]monary Critical [place] 136 [facility] 302 [place], [place] [address] Ramon Nixon MD 136 [facility] 302 [place] [address] Ksenia Jain, RT 05/04/2026 1:45 PM EDT Office Visit Stroke 800 [facility] [place] [address] Kristine Kelyl MD PhD 800 [facility] [place] [address] 05/09/2026 1:00 PM EDT Follow Up Cardiovascular Medicine at 175 [facility] 175 [facility] THIRD FLOOR [place], [place] [address] Mike Hilario MD 175 [facility] [address] 2 [place] [phone] documented as of this encounter Procedures Procedure Name Priority Date/Time Associated Diagnosis Comments CARDIAC ECHO RESULT SCAN Routine 08/27/2023 documented in this encounter Results * Cardiac Echo Result Scan (08/27/2023) Provider External CV CARDIAC REPORT (CVR) Final Result documented in this encounter Visit Diagnoses Not on filedocumented in this encounter Care Teams Tank Pumper Panelboard Relationship Specialty Start Date End Date Sal Jose MD [address] [phone] PCP - General Family Medicine 10/16/23 documented as of this encounter
--- OUTSIDE RECORDS SUMMARY | 2025-06-13 11:26 | XMS_ITS | Encounter Summary ---
Author Organization [facility] and [facility] Address [address] [place] [address] Care Team Providers Care Icu Tech Name Role Phone Sal Jose MD Primary Care Provider [phone] Encounter Details Date Type Department Care Team (Late Contact Info) Description 12/04/2023 Transcribed Orders [facility] Laboratory Specimens [address] [place] [address] System, Provider Not In CREST variant of [...] [facility] [place] [address] Virgie Mast MD PhD [address] [place] [phone] 08/09/2025 1:00 PM EST Office Visit [place] Critical [place] 136 [facility] [address] [place] [address] Ramon Ron MD [address] [place] [address] [address] [place] [address] LavelleKrishna, Ksenia Carroll, RT 05/04/2026 1:45 PM EDT Office Visit Stroke 800 [facility] Lower Level [place], [place] [phone] Kristine Kelly MD PhD [address] [place] [address] 05/09/2026 1:00 PM EDT Follow Up Cardiovascular Medicine at 175 [facility] 175 [facility] [place] [address] Mike Hilario MD [address] [place] [address] documented as of this encounter Results * Sedimentation rate (ESR) (05/20/2024 12:53 PM EDT) Pathologist [facility] Sedimentation Rate (ESR) 4 0 - 20 mm/hr 05/20/2024 1:59 PM EDT [facility] DEPARTMENT OF LABORATORY MEDICINE Blood Venipuncture / Unknown 05/20/2024 12:53 PM EDT 05/20/2024 1:31 PM EDT us Provider Not In System LAB BLOOD ORDERABLES Evelin smith Result Performing Organization Address City/State/[facility] Co de Phone Number [facility] DEPARTMENT OF LABORATORY MEDICINE [address] [place] [address] * (ABNORMAL) C-reactive protein (CRP) (04/15/2024 12:20 [...] Evelin l Result Performing Organization Address [facility] Co de Phone Number [facility] DEPARTMENT OF LABORATORY MEDICINE [address] [place] [address] * (ABNORMAL) Sedimentation rate (ESR) (04/15/2024 12:20 PM EDT) Sedimentation Rate (ESR) 24(H) 0 - 20 mm/hr 04/15/2024 3:41 PM EDT [facility] DEPARTMENT OF LABORATORY MEDICINE Blood Venipuncture / Unknown 04/15/2024 12:20 PM EDT 04/15/2024 2:54 PM EDT us Provider Not In System LAB BLOOD ORDERABLES Evelin l Result Performing Organization Address [facility] Co de Phone Number [facility] DEPARTMENT OF LABORATORY MEDICINE [address] [place] [address] * (ABNORMAL) C-reactive protein (CRP) (03/17/2024 10:36 [...] Evelin l Result Performing Organization Address [facility]/ZIP Co de Phone Number [facility] DEPARTMENT OF LABORATORY MEDICINE [address] [place] [address] * (ABNORMAL) Sedimentation rate (ESR) (03/17/2024 10:36 AM EDT) Sedimentation Rate (ESR) 23(H) 0 - 20 mm/hr 03/17/2024 11:46 AM EDT [facility] DEPARTMENT OF LABORATORY MEDICINE Blood Venipuncture / Unknown 03/17/2024 10:36 AM EDT 03/17/2024 11:15 AM EDT us Provider Not In System LAB BLOOD ORDERABLES Evelin l Result Performing Organization Address [facility] de Phone Number [facility] DEPARTMENT OF LABORATORY MEDICINE [address] [place] [address] * (ABNORMAL) C-reactive protein (CRP) (02/20/2024 3:41 [...] Evelin l Result Performing Organization Address [facility] Co de Phone Number [facility] DEPARTMENT OF LABORATORY MEDICINE [address] [place] [address] * Sedimentation rate (ESR) (02/20/2024 3:41 PM EDT) Sedimentation Rate (ESR) 18 0 - 20 mm/hr 02/20/2024 7:04 PM EDT [facility] DEPARTMENT OF LABORATORY MEDICINE Blood Venipuncture / Unknown 02/20/2024 3:41 PM EDT 02/20/2024 4:04 PM EDT Provider Not In System LAB BLOOD ORDERABLES Evelin l Result Performing Organization Address [facility] Co de Phone Number [facility] DEPARTMENT OF LABORATORY MEDICINE [address] [place] [address] * (ABNORMAL) C-reactive protein (CRP) (12/09/2023 1:52 [...] Evelin l Result Performing Organization Address [facility] Co de Phone Number [facility] DEPARTMENT OF LABORATORY MEDICINE [address] [place] [address] * Sedimentation rate (ESR) (12/09/2023 1:52 PM EDT) Sedimentation Rate (ESR) 10 0 - 20 mm/hr 12/09/2023 5:08 PM EDT [facility] DEPARTMENT OF LABORATORY MEDICINE Blood Venipuncture / Unknown 12/09/2023 1:52 PM EDT 12/09/2023 4:20 PM EDT us Provider Not In System LAB BLOOD ORDERABLES Evelin l Result [facility] DEPARTMENT OF LABORATORY MEDICINE [address] [place] [address] documented in this encounter 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
--- OUTSIDE RECORDS SUMMARY | 2025-06-13 11:26 | XMS_ITS | Encounter Summary ---
Author Organization [facility] and [facility] Address [address] [place] [phone] Care Team Providers Care Cone Picker Name Role Phone Sal Jose MD Primary Care Provider Encounter Details Date Type Department Care Team (Late Contact Info) Description 10/28/2023 Scanned Document [facility] [address] [place] [address] Joao Loredo MD [address] [place] [phone] Social History Tobacco Use Types Packs/Day Years [...] Office Visit [facility] at [address] [place] [phone] Virgie Mast MD PhD [address] [place] [phone] 08/09/2025 1:00 PM EST Office Visit [place] [address] [place] [address] [address] [place] [address] Ramon Nixon MD 136 [facility] [address] [place] [address] Ksenia Jain, RT 05/04/2026 1:45 PM EDT Office Visit Stroke 800 [facility] [place] [address] Kristine Kelly MD PhD 800 [place] [address] 05/09/2026 1:00 PM EDT Follow Up Cardiovascular Medicine at 175 [facility] 175 [facility] [place] [address] Mike Hilario MD [address] [facility] [address] [place] [address] documented as of this encounter Procedures Procedure [...] Result Scan (02/06/2022 11:26 AM EDT) Result [facility] Provider IMG SCAN REPORTS Final Resul t documented in this encounter Visit Diagnoses Not on filedocumented in this encounter Care Teams Cone Picker Relationship Specialty Start Date End Date Sal Jose MD 1033 [facility] [address] [place] [phone] PCP - General Family Medicine 10/16/23 documented as of this encounter
--- OUTSIDE RECORDS SUMMARY | 2025-06-13 11:26 | XMS_ITS | Encounter Summary ---
Author Organization [facility] and [facility] Address [address] [place] [phone] Care Team Providers Care Explosive Ordnance Handler Name Role Phone Sal Jose MD Primary Care Provider [phone] Encounter Details Date Type Department Care Team (Late Contact Info) Description 10/27/2023 Scanned Document [facility] SCHEDULING 25 [place], [place] [address] Provider, Historical . Social History Tobacco Use [...] Visit Epilepsy & Seizures at 800 [facility] 800 [facility] [place] [address] Virgie Mast MD PhD 800 [place] [phone] 08/09/2025 1:00 PM EST Office Visit [place] Critical [place] 136 [facility] [address] [place], [place] [address] Ramon Nixon MD [address] [place] [address] 302 [place] [address] Ksenia Jain, RT 05/04/2026 1:45 PM EDT Office Visit Stroke 800 [facility] [place] [address] Kristine Kelly MD PhD 800 [place] [phone] 05/09/2026 1:00 PM EDT Follow Up Cardiovascular Medicine at 175 [facility] 175 [facility] THIRD [place]LOOR [place], [place] [address] Mike Hilario MD 175 [facility] 2 [place] [address] documented as of this encounter Visit Diagnoses Not on filedocumented in this encounter Care Teams Explosive Ordnance Handler Relationship Specialty Start Date End Date Sal Jose MD 1033 [facility] [address] [place] [phone] PCP - General Family Medicine 10/16/23 documented as of this encounter
--- OUTSIDE RECORDS SUMMARY | 2025-06-13 11:26 | XMS_ITS | Encounter Summary ---
Author Organization [facility] Address Unknown Care Team Providers Care Home Improvement Advisor Name Role Phone Sal Jose MD Primary Care Provider [phone] Encounter Details Date Type Department Care Team (Late st Contact Info) Description 05/11/2024 Scanned Document [place]monary Critical [place] 136 [facility] [address] [place], [place] [address] Ramon Nixon MD 136 [facility] 302 [place] [phone] Social History Tobacco Use Types Packs/Day Years [...] 800 [facility] 800 [place] [address] Virgie Mast MD PhD [address] [place], [place] [address], [place] [phone] 08/09/2025 1:00 PM EST Office Visit [place] Critical [place] 136 [facility] [address] [place] [address] Ramon Nixon MD 136 [facility] [address] [place] [phone] Cristobal Ksenia [place], RT 05/04/2026 1:45 PM EDT Office Visit Stroke 800 [facility] [place] [address] Kristine Kelly MD PhD 800 [place] [phone] 05/09/2026 1:00 PM EDT Follow Up Cardiovascular Medicine at 175 [facility] 175 [facility] [place] [address] Mike Hilario MD 175 [facility] [address] 2 [place] [phone] documented as of this encounter Visit Diagnoses Not on filedocumented in this encounter Additional Health Concerns Assessment Noted Time PHQ-9 Depression Total Score: 0 04/07/20 2:31 PM EDT documented as of this encounter Care Teams Home Improvement Advisor Relationship Specialty Start Date End Date Sal Jose MD [facility] [address] [phone] PCP - General Family Medicine 10/16/23 documented as of this encounter
--- OUTSIDE RECORDS SUMMARY | 2025-06-13 11:26 | XMS_ITS | Encounter Summary ---
Author Organization [facility] and [facility] Address [address] [place] [address] Care Team Providers Care Retail Financial Analyst Name Role Phone Sal Jose MD Primary Care Provider Encounter Details Date Type Department Care Team (Late st Contact Info) Description 10/17/2023 Scanned Document [facility] Stroke 800 [place], [place] 8[address] Kristine Kelly MD PhD [address] [place] [address] Social History Tobacco Use Types Packs/Day [...] [facility] 800 [place], [place] [address] Virgie Mast MD PhD 800 [place] [phone] 08/09/2025 1:00 PM EST Office Visit Pulmonary Critical [place] 136 [facility] [address] [place] [address] Ramon Nixon MD 136 [facility] [address] [place] [address] Ksenia Jain, RT 05/04/2026 1:45 PM EDT Office Visit Stroke [address] [facility] [address] Kristine Kelly MD PhD 800 [place] [phone] 05/09/2026 1:00 PM EDT Follow Up Cardiovascular Medicine at 175 [facility] 175 [facility] [place] [address] Mike Hilario MD 175 [facility] [address] 2 [place] [address] documented as of this encounter Visit Diagnoses Not on filedocumented in this encounter Care Teams Retail Financial Analyst Relationship Specialty Start Date End Date Sal Jose MD [address] [phone] PCP - General Family Medicine 10/16/23 documented as of this encounter
--- OUTSIDE RECORDS SUMMARY | 2025-06-13 11:26 | XMS_ITS | Encounter Summary ---
Author Organization [facility] and [facility] Address [address] [place] [address] Care Team Providers Care Finish Molder Name Role Phone Sal Jose MD Primary Care Provider Encounter Details Date Type Department Care Team (Late st Contact Info) Description 08/13/2023 Scanned Document EXTERNAL REFERRAL SOURCE 20 [place] [address] External, Provider Social History Tobacco Use Types [...] [facility] [place] [address] Virgie Mast MD PhD 800 [place] [phone] 08/09/2025 1:00 PM EST Office Visit Pulmonary Critical [place] 136 [facility] 302 [place], [place] [address] Ramon Nixon MD [address] [place] [address] 302 [place] [phone] Ksenia Jain, RT 05/04/2026 1:45 PM EDT Office Visit Stroke [address] [facility] Lower [place], [place] [address] Kristine Kelly MD PhD 800 [place] [phone] 05/09/2026 1:00 PM EDT Follow Up Cardiovascular Medicine at 175 [facility] 175 [facility] THIRD FLOOR [place], [place] [address] Mike Hilario MD 175 [facility] [address] 2 [place] [phone] documented as of this encounter Visit Diagnoses Not on filedocumented in this encounter Care Teams Finish Molder Relationship Specialty Start Date End Date Sal Jose MD [address] [phone] PCP - General Family Medicine 10/16/23 documented as of this encounter
--- OUTSIDE RECORDS SUMMARY | 2025-06-13 11:26 | XMS_ITS | Encounter Summary ---
Author Organization [facility] Address [address] [place] [address] Care Team Providers Care Screener Operator Name Role Phone Sal Jose MD Primary Care Provider Encounter Details Date Type Department Care Team (Late Contact Info) Description 10/28/2023 Scanned Document [facility] at [address] [place] [address] Joao Loredo MD [address] [place] [phone] Social History Tobacco Use Types Packs/Day Years [...] Office Visit [facility] at [address] [place] [address] Virgie Mast MD PhD [address] [place] [phone] 08/09/2025 1:00 PM EST Office Visit [place] [address] [place] [address] [address] [place] [address] Ramon Nixon MD 136 [facility] [address] [place] [address] Cristobal Ksenia Carroll, RT 05/04/2026 1:45 PM EDT Office Visit Stroke 800 [facility] [place] [address] Kristine Kelly MD PhD 800 [facility] [place] [address] 05/09/2026 1:00 PM EDT Follow Up Cardiovascular Medicine at 175 [facility] 175 [facility] [place] [address] Mike Hilario MD 175 [facility] [address] [place] [address] documented as of this encounter Procedures Procedure [...] MRI Result Scan (05/12/2020 11:48 AM EDT) [facility] Provider IMG SCAN REPORTS Final Resul t * MRI Result Scan (04/12/2020 12:01 PM EDT) Historical Provider IMG SCAN REPORTS Final Resul t * MRI Result Scan (04/12/2020 11:55 AM EDT) Result [facility] Historical Provider IMG SCAN REPORTS Final Resul t * MRI Result Scan (04/08/2020 12:04 PM EDT) Result [facility] Provider IMG SCAN REPORTS Final Resul t * CT Result Scan (02/25/2020 12:11 PM EDT) Historical Provider IMG SCAN REPORTS Final Resul t * MRI Result Scan (02/01/2020 12:16 PM EDT) Historical Provider IMG SCAN REPORTS Final Resul t * CT Result Scan (12/25/2018 12:21 PM EDT) [facility] Provider IMG SCAN REPORTS Final Resul t * CT Result Scan (08/25/2015 12:26 PM EST) Historical Provider IMG SCAN REPORTS Final Resul t * CT Result Scan (09/28/2012 12:30 PM EST) Historical Provider IMG SCAN REPORTS Final Resul t * CT Result Scan (09/07/2012 12:34 PM EST) [facility] Provider IMG SCAN REPORTS Final Resul t * CT Result Scan (02/13/2012 12:38 PM EDT) Result [facility] Provider IMG SCAN REPORTS Final Resul t * CT Result Scan (12/17/2010 1:03 PM EDT) Result [facility] Provider IMG SCAN REPORTS Final Resul t * CT Result Scan (12/17/2010 1:00 PM EDT) Result [facility] Provider IMG SCAN REPORTS Final Resul t * CT Result Scan (12/17/2010 12:56 PM EDT) Result [facility] Provider IMG SCAN REPORTS Final Resul t * CT Result Scan (12/17/2010 12:52 PM EDT) Result [facility] Provider IMG SCAN REPORTS Final Resul t * CT Result Scan (12/17/2010 12:46 PM EDT) Result [facility] Provider IMG SCAN REPORTS Final Resul t * CT Result Scan (12/17/2010 12:41 PM EDT) Result [facility] Provider IMG SCAN REPORTS Final Resul t documented in this encounter Visit Diagnoses Not on filedocumented in this encounter Care Teams Screener Operator Relationship Specialty Start Date End Date Sal Jose MD [address] [place] [phone] PCP - General Family Medicine 10/16/23 documented as of this encounter
--- OUTSIDE RECORDS SUMMARY | 2025-06-13 11:26 | XMS_ITS | Encounter Summary ---
Author Organization [facility] Address [address] [place] [phone] Care Team Providers Care Bottom Cementer Name Role Phone Sal Jose MD Primary Care Provider Reason for Visit * Reason Onset Date Comments Holter/Event Monitor 11/13/2023 Trying to E nroll Pt for MCT monitor Encounter Details Date Type Department Care Team (Late st Contact Info) Description 11/13/2023 Telephone [facility] St[facility] 800 [place], [place] [address] Kristine Kelly MD PhD 800 [place] [phone] Holter/Event Monitor (Trying to Enroll Pt for [...] Epilepsy & Seizures at [address] [facility] [address] [facility] [place] [address] Virgie Mast MD PhD 800 [place] [phone] 08/09/2025 1:00 PM EST Office Visit Pulmonary Critical [place] [address] 7[address] Ramon Nixon MD [address] [place] [address] [place] [address] Ksenia Jain Carly, RT 05/04/2026 1:45 PM EDT Office Visit Stroke [address] [facility] [place] [address] Kristine Kelly MD PhD 800 [place] [phone] 05/09/2026 1:00 PM EDT Follow Up Cardiovascular Medicine at 175 [facility] 175 [facility] THIRD FLOOR [place], [place] [address] Mike Hilario MD 175 [facility] 2 [place] [address] documented as of this encounter Visit Diagnoses Not on filedocumented in this encounter Care Teams Bottom Cementer Relationship Specialty Start Date End Date Sal Jose MD 1033 [facility] [address] [place] [phone] PCP - General Family Medicine 10/16/23 documented as of this encounter
--- OUTSIDE RECORDS SUMMARY | 2025-06-13 11:28 | XMS_ITS | Encounter Summary ---
Author Organization [facility] Address Unknown Care Team Providers Care Director Of Annual Giving Name Role Phone Sal Jose MD Primary Care Provider [phone] Encounter Details Date Type Department Care Team (Late st Contact Info) Description 11/27/2021 Scanned Document Pulmonary Critical [place] 136 [facility] 302 [place] [address] External, Provider Social History Tobacco Use Types [...] [address] [facility] [place] [address] Virgie Mast MD PhD 800 [place] [phone] 08/09/2025 1:00 PM EST Office Visit [place] 136 [facility] 302 [place], [place] [address] Ramon Nixon MD 136 [facility] 302 [place] [phone] Ksenia aJin, RT 05/04/2026 1:45 PM EDT Office Visit Stroke [address] [facility] [place] [address] Kristine Kelly MD PhD 800 [place] [phone] 05/09/2026 1:00 PM EDT Follow Up Cardiovascular Medicine at 175 [facility] 175 [facility] THIRD FLOOR [place], [place] [address] Mike Hilario MD 175 [facility] [address] 2 [place] [phone] documented as of this encounter Visit Diagnoses Not on filedocumented in this encounter Care Teams Director Of Annual Giving Relationship Specialty Start Date End Date Sal Jose MD [address] [phone] PCP - General Family Medicine 10/16/23 documented as of this encounter
--- OUTSIDE RECORDS SUMMARY | 2025-06-13 11:28 | XMS_ITS | Encounter Summary ---
Author Organization [facility] Address Unknown Care Team Providers Care Conservation Worker Name Role Phone Sal Jose MD Primary Care Provider [phone] Reason for Referral * General (Routine) - New Request Specialty Diagnoses / Procedures Referred By Contac t Referred To Contact Pulmonary Disease Procedures Pulmonary Function Test ([facility]) Ramon Nixon MD [address] [place] [address] 302 [place] [address] Phone: tel: fax: Referral ID Status Reason Start Date Expiration Date V isits Requested Visits Authorized [id number] New Request 08/31/2024 08/31/2025 1 1 Encounter Details Date Type Department Care Team (Late st Contact Info) Description 08/31/2024 Scanned Document Pulmonary Critical [place] 136 [facility] 302 [place], [place] [phone] Ramon Nixon MD [address] [place] [address] 302 [place] [address] Social History Tobacco Use Types [...] Office Visit Epilepsy & Seizures at 800 [facility] 800 [place] [address] Virgie Mast MD PhD 800 [place] [phone] 08/09/2025 1:00 PM EST Office Visit [place]monary Critical [place] 136 [facility] [address] [place] [address] Ramon Nixon MD 136 [facility] 302 [place] [address] Ksenia Jain, RT 05/04/2026 1:45 PM EDT Office Visit Stroke 800 [place] [address] Kristine Kelly MD PhD 800 [place] [phone] 05/09/2026 1:00 PM EDT Follow Up Cardiovascular Medicine at 175 [facility] 175 [facility] [place] [address] Mike Hilario MD 175 [facility] [address] [place] [phone] documented as of this encounter Procedures Procedure [...] documented as of this encounter Care Teams Conservation Worker Relationship Specialty Start Date End Date Sal Jose MD [facility] [address] [phone] PCP - General Family Medicine 10/16/23 documented as of this encounter
--- OUTSIDE RECORDS SUMMARY | 2025-06-13 11:28 | XMS_ITS | Encounter Summary ---
Author Organization [facility] Address Unknown Care Team Providers Care Shipping Checker Name Role Phone Sal Jose MD Primary Care Provider [phone] Encounter Details Date Type Department Care Team (Late st Contact Info) Description 11/19/2022 Scanned Document Pulmonary Critical [place] 136 [facility] 302 [place], [place] [id number] External, Provider Social History Tobacco Use Types [...] [facility] 800 [facility] 800 [facility] [place] [address] Virgie Mast MD PhD 800 [place] [address] 08/09/2025 1:00 PM EST Office Visit [place] 136 [facility] 302 [place], [place] [address] Ramon Nixon MD 136 [facility] 302 [place] [address] Ksenia Jain, RT 05/04/2026 1:45 PM EDT Office Visit Stroke 800 [facility] [place] [address] Kristine Kelly MD PhD 800 [place] [phone] 05/09/2026 1:00 PM EDT Follow Up Cardiovascular Medicine at 175 [facility] 175 [facility] THIRD FLOOR [place], [place] [address] Mike Hilario MD 175 [facility] [address] 2 [place] [address] documented as of this encounter Visit Diagnoses Not on filedocumented in this encounter Care Teams Shipping Checker Relationship Specialty Start Date End Date Sal Jose MD [address] [phone] PCP - General Family Medicine 10/16/23 documented as of this encounter
--- OUTSIDE RECORDS SUMMARY | 2025-06-13 11:28 | XMS_ITS | Encounter Summary ---
Author Organization [facility] Address Unknown Care Team Providers Care Billiard Table Repairer Name Role Phone Sal Jose MD Primary Care Provider [phone] Encounter Details Date Type Department Care Team (Late st Contact Info) Description 11/19/2022 Scanned Document [place]monary Critical [place] 136 [facility] 302 [place], [place] [address] External, Provider Social History Tobacco Use Types [...] Visit [facility] at 800 [facility] 800 [facility] [place] [address] Virgie Mast MD PhD 800 [place] [phone] 08/09/2025 1:00 PM EST Office Visit [place] 136 [facility] 302 [place], [place] [address] Ramon Nixon MD 136 [facility] 302 [place] [address] Ksenia Jain, RT 05/04/2026 1:45 PM EDT Office Visit Stroke 800 [facility] [place] [address] Kristine Kelly MD PhD 800 [place] [address] 05/09/2026 1:00 PM EDT Follow Up Cardiovascular Medicine at 175 [facility] 175 [facility] THIRD FLOOR [place], [place] [address] Mike Hilario MD 175 [facility] Fl 2 [place] [phone] documented as of this encounter Visit Diagnoses Not on filedocumented in this encounter Care Teams Billiard Table Repairer Relationship Specialty Start Date End Date Sal Jose MD [address] [phone] PCP - General Family Medicine 10/16/23 documented as of this encounter
--- OUTSIDE RECORDS SUMMARY | 2025-06-13 11:28 | XMS_ITS | Clinical Summary ---
Author Organization [employer] Address [address] [place] [address] 7t [place] [address] Care Team Providers Care Automatic Buffing Wheel Former Name Role Phone Cordell Saba Unavailable Unavailable [...] Pulmonary embolism 06/05/2012 Overview (07/29/2024): 1990- in [place] Primary hypertension 02/13/2012 Hypothyroidism 02/04/2012 Overview (07/29/2024): [...] Health Maintenance [place] [id number] [facility] FULL MEDICARE HSN FULL MEDICARE 1[place] [address] DENTAL - HSN FULL (MEDICAID) Care Teams Automatic Buffing Wheel Former Relationship Specialty Start Date End Date [facility] 08/12/24 CASSIDY DE LA FUENTE NPI ID: [id number] Address: [address] [place] [id number] Primary Care Physician [id number] Primary Care Provider 08/12/18
--- OUTSIDE RECORDS SUMMARY | 2025-06-13 11:28 | XMS_ITS | Clinical Summary ---
Author Organization [facility] Address 20 [place] [address] Phone Care Team Providers Care Detective Narcotics And Vice Name Role Phone Sal Jose MD Primary Care Provider [phone] Allergies Active Allergy Reactions Criticality Noted Date [...] EDT Follow Up Cardiovascular Medicine at [address] [place] [address] Mike Hilario MD NSVT (nonsustained ventricular tachycardia) (HC Code) (HC CODE) (Primary Dx); Chronic ischemic right MCA stroke; Aneurysm of middle cerebral artery; Scleroderma (HC CODE); ILD (interstitial lung disease) (HC Code) (HC CODE); History of pulmonary embolism 04/28/2025 1:45 PM EDT Office Visit [facility] Stroke 800 [place] [address] Kristine Kelly MD PhD Chronic ischemic right [...] Visit [facility] at 800 [facility] 800 [place] [address] Virgie Mast MD PhD 800 [facility] [place] [address] 08/09/2025 1:00 PM EST Office Visit [place] 136 [facility] [address] [place] [address] Ramon Nixon MD 136 [facility] 302 [place] [address] Ksenia Jain, RT 05/04/2026 1:45 PM EDT Office Visit YM Stroke 800 [place] [address] Kristine Kelly MD PhD 800 [facility] [place] [address] 05/09/2026 1:00 PM EDT Follow Up Cardiovascular Medicine at 175 [facility] 175 [facility] [place] [address] Mike Hilario MD [address] [place] [phone] Health Maintenance Due Date Last Done Comments HIV screening 1974 Hepatitis C screening 11/22/1979 Lipid disorder screening 2001 Colon cancer screening, Colonoscopy 2006 RSV Immunization (1 - Risk 50-74 years 1-dose series) 11/22/2011 Cervical cancer screening 02/25/2019 02/25/2014 Pneumococcal Vaccine (50+ years) (3 of 3 - PCV20 or PCV21) 04/16/2023 04/16/2018, 06/09/2015 Breast [...] QTC Interval 446 ms SRC EKG P [place] 65 deg SRC EKG QRS [place] 25 deg SRC EKG T Wave [place] 41 deg SRC EKG P-R Interval 162 msec SRC EKG SEVERITY Borderline ECG severity SRC EKG Comment::Sinus rhythm::Minim al ST elevation, anterior leads:Electronically Signed On 05-06-2025 23:35:17 EDT by Marc Joe MD OTHER / Unknown 05/04/2025 1 2:54 PM EDT Mike Hilario MD ECG ORDERABLES Final Resul t SRC EKG * Comprehensive metabolic panel (07/23/2024 1:13 PM EST) Sodium 144 136 - 144 mmol/L 07/23/2024 3:09 PM [facility] DEPARTMENT OF LABORATORY MEDICINE Potassium [...] 7 - 17 07/23/2024 3:09 PM [facility]ATORY MEDICINE Glucose [...] <=1.2 mg/dL 07/23/20 24 3:09 PM [facility] DEPARTMENT OF [...] >60 >=60 mL/min/1.73m2 07/23/2024 3:09 PM EST [facility] DEPARTMENT OF LABORATORY MEDICINE Comment: [facility] utilizes CKD-EPI Creatinine 2020 to report eGFR. Values < 60 mL/min/1.73 m2 may indicate CKD if present for more than three months AND creatinine is at steady state. The eGFR provides a rough estimate of kidney function. For further guidance, please refer to the CKD: Adult Ben Day Artist Signature pathway. Creatinine Delta 0.01 See Comment [...] LAB BLOOD ORDERABLES Evelin smith Result [facility] DEPARTMENT OF LABORATORY MEDICINE [address] [place] [address] from Last 3 Months or Most Recently Relevant to Health Maintenance [place] 1-[place] [id number] MEDICAID [place] 1-[place] [address] [id number] MED[place] 1-[place] [address] [facility] 1-[place] [address] [id number] MEDICAID MEDIC[place] 1-[place] [address] [facility] Care Teams Detective Narcotics And Vice Relationship Specialty Start Date End Date Sal Jose MD [address] [place] [phone] PCP - General Family Medicine 10/16/23
--- OUTSIDE RECORDS SUMMARY | 2025-06-13 11:28 | XMS_ITS | Encounter Summary ---
Author Organization [facility] Address Unknown Care Team Providers Care Physical Security Engineer Name Role Phone Sal Jose MD Primary Care Provider [phone] Encounter Details Date Type Department Care Team (Late st Contact Info) Description 08/13/2023 Scanned Document Pulmonary Critical [place] 136 [facility] 302 [place], [place] [address] External, Provider Social History Tobacco Use Types [...] [facility] [place] [address] Virgie Mast MD PhD 800 [place] [address] 08/09/2025 1:00 PM EST Office Visit [place]monary Critical [place] 136 [facility] 302 [place], [place] [address] Ramon Nixon MD 136 [facility] 302 [place] [address] Ksenia Jain, RT 05/04/2026 1:45 PM EDT Office Visit Stroke 800 [facility] [place] [address] Kristine Kelly MD PhD 800 [place] [phone] 05/09/2026 1:00 PM EDT Follow Up Cardiovascular Medicine at 175 [facility] 175 [facility] THIRD [place], [place] [address] Mike Hilario MD 175 [facility] [address] 2 [place] [address] documented as of this encounter Visit Diagnoses Not on filedocumented in this encounter Care Teams Physical Security Engineer Relationship Specialty Start Date End Date Sal Jose MD [address] [phone] PCP - General Family Medicine 10/16/23 documented as of this encounter
--- OUTSIDE RECORDS SUMMARY | 2025-06-13 11:28 | XMS_ITS | Encounter Summary ---
Author Organization [facility] Address Unknown Care Team Providers Care Registry Nurse Name Role Phone Sal Jose MD Primary Care Provider [phone] Encounter Details Date Type Department Care Team (Late st Contact Info) Description 11/27/2021 Scanned Document Pulmonary Critical [place] 136 [facility] 302 [place] [address] Gaviota Rivera, YOSI Social History Tobacco Use [...] Visit [facility] at 800 [facility] 800 [facility] [place] [address] Virgie Mast MD PhD 800 [place] [phone] 08/09/2025 1:00 PM EST Office Visit Pulmonary Critical [place] 136 [facility] 302 [place], [place] [address] Ramon Nixon MD 136 [facility] 302 [place] [address] Ksenia Jain, RT 05/04/2026 1:45 PM EDT Office Visit Stroke 800 [facility] [place] [address] Kristine Kelly MD PhD 800 [place] [phone] 05/09/2026 1:00 PM EDT Follow Up Cardiovascular Medicine at 175 [facility] 175 [facility] [place] [address] Mike Hilario MD 175 [facility] Fl 2 [place] [address] documented as of this encounter Visit Diagnoses Not on filedocumented in this encounter Care Teams Registry Nurse Relationship Specialty Start Date End Date Sal Jose MD [address] [phone] PCP - General Family Medicine 10/16/23 documented as of this encounter
--- OUTSIDE RECORDS SUMMARY | 2025-06-13 11:28 | XMS_ITS | Encounter Summary ---
Author Organization [facility] Address 20 [place] [address] Care Team Providers Care Quality Assurance Intern Name Role Phone Sal Jose MD Primary Care Provider Encounter Details Date Type Department Care Team (Late Contact Info) Description 08/09/2014 Abstract [facility] at 175 [facility] 175 [place] [address] Emerita Beth MD 35 [place] [phone] Social History Tobacco Use Types Packs/Day Years [...] 800 [facility] 800 [facility] Lower [place], [place] [address] Virgie Mast MD PhD 800 [place] [phone] 08/09/2025 1:00 PM EST Office Visit [place] Critical [place] 136 [facility] [address] [place], [place] [address] Ramon Nixon MD 136 [facility] 302 [place] [address] Ksenia Jain, RT 05/04/2026 1:45 PM EDT Office Visit Stroke 800 [facility] [place] [address] Kristine Kelly MD PhD 800 [place] [phone] 05/09/2026 1:00 PM EDT Follow Up Cardiovascular Medicine at 175 [facility] 175 [facility] THIRD FLOOR [place], [place] [address] Mike Hilario MD 175 [facility] 2 [place] [phone] documented as of this encounter Visit Diagnoses Not on filedocumented in this encounter Care Teams Quality Assurance Intern Relationship Specialty Start Date End Date Sal Jose MD 1033 [facility] [address] [place] [phone] PCP - General Family Medicine 10/16/23 documented as of this encounter
--- OUTSIDE RECORDS SUMMARY | 2025-06-13 11:28 | XMS_ITS | Encounter Summary ---
Author Organization [facility] Address Unknown Care Team Providers Care Balancing Machine Operator Name Role Phone Sal Jose MD Primary Care Provider [phone] Encounter Details Date Type Department Care Team (Late st Contact Info) Description 08/13/2023 Scanned Document Pulmonary Critical [place] 136 [facility] 302 [place], [place] [address] External, Provider Social History Tobacco Use Types [...] [facility] [place] [address] Virgie Mast MD PhD 800 [place] [phone] 08/09/2025 1:00 PM EST Office Visit [place] Critical [place] 136 [facility] 302 [place], [place] [address] Ramon Nixon MD 136 [facility] 302 [place] [phone] Ksenia Jain, RT 05/04/2026 1:45 PM EDT Office Visit Stroke [address] [facility] [place] [address] Kristine Kelly MD PhD 800 [place] [phone] 05/09/2026 1:00 PM EDT Follow Up Cardiovascular Medicine at 175 [facility] 175 [facility] THIRD FLOOR [place], [place] [address] Mike Hilario MD 175 [facility] [address] 2 [place] [address] documented as of this encounter Visit Diagnoses Not on filedocumented in this encounter Care Teams Balancing Machine Operator Relationship Specialty Start Date End Date Sal Jose MD [address] [phone] PCP - General Family Medicine 10/16/23 documented as of this encounter
--- OUTSIDE RECORDS SUMMARY | 2025-06-13 11:28 | XMS_ITS | Encounter Summary ---
Author Organization [facility] [place] [facility] Address [address] [place] [address] Care Team Providers Care Distillery Worker General Name Role Phone Sal Jose MD Primary Care Provider [phone] Encounter Details Date Type Department Care Team (Late Contact Info) Description 08/31/2024 Transcribed Orders [facility]ens [address] [place], [place] [address] System, Provider Not In CRST syndrome (HC [...] at 800 [facility] 800 [place], [place] [address] Virgie Mast MD PhD [address] [place] [phone] 08/09/2025 1:00 PM EST Office Visit [place]monary Critical [place] 136 [facility] [address] [place] [address] Ramon Nixon MD 136 [facility] 302 [place] [address] Ksenia Jain, RT 05/04/2026 1:45 PM EDT Office Visit Stroke 800 [facility] [place] [address] Kristine Kelly MD PhD 800 [place] [address] 05/09/2026 1:00 PM EDT Follow Up Cardiovascular Medicine at 175 [facility] 175 [facility] [place] [address] Mike Hilario MD 175 [facility] [address] 2 [place] [address] Scheduled Orders Name Type Priority Associated Diagnoses [...] documented as of this encounter Care Teams Distillery Worker General Relationship Specialty Start Date End Date Sal Jose MD [address] [place] [address] PCP - General Family Medicine 10/16/23 documented as of this encounter
== END 2025-06-13 10:48 | disposition home or self-care (01) ==
PROVIDERS: PCP Family Medicine; Visit Provider Obstetrics & Gynecology
DX: R87.610 Atypical squamous cells of undetermined significance on cytologic smear of cervix (ASC-US) (principal); R87.810 Cervical high risk human papillomavirus (HPV) DNA test positive; N95.0 Postmenopausal bleeding
CPT/HCPCS: 57454

== ENCOUNTER 2025-06-13 09:58 | Outpatient (REF) | payer MEDICARE, MEDICAID, SELFPAY ==
--- OUTSIDE RECORDS SUMMARY | 2025-06-01 03:30 | XMS_ITS ---
Author Organization [facility] Address [address] [place] [phone] Care Team Providers Care Behavioral Scientist Name Role Phone Jayant Walker Primary Care Provider Unavailab Venkatesh Moss [facility] [phone] REASON FOR VISIT screening,egd Encounters Encounter Location Date Provider Diagnosis [facility] [place] [address] [place], [place] [phone] 06/01/2025 Venkatesh Marsh Plan Of Treatment No Information Progress Notes * CAMILA TORRESOB:[birth year] (64 yo F)Acc No.[id number]:06/01/2025 EGD and COL/MAC Patient: Savanah ROMAN TORRES Provider: Sharonda Marsh MD :1960 A ge:64 Y S ex:Female Date:06/01/2025 Address:[address] [place] [address] [facility] Pcp:Jayant Walker Subjective: * Chief Complaints: * [...] MD Date: Generated for Sommer francis/Elvia/Mercyitting on: 08/13/2024 01:13 PM EST
--- OUTSIDE RECORDS SUMMARY | 2025-06-13 13:14 | XMS_ITS | Patient Health Record ---
Author Organization [facility] Address [address] [place] [phone] Care Team Providers Care Bisque Grader Name Role Phone Jayant Walker Primary Care Provider Venkatesh Mauro [phone] Allergies Allergen (clinical drug ingredient) Drug/Non Drug [...] Status Risk Notes Problem Colon cancer screening (566123434) Colon cancer screening (Z12.11) Active confirmed Problem Irregular bowel habits (556096916) Irregular bowel habits (R19.8) Active confirmed Problem Long-term current use of anticoagulant (198723815) Anticoagulant long-term use (Z79.01) Active confirmed Problem Systemic sclerosis (33423373) 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) Active confirmed Problem Gastroesophageal reflux disease (049685326) GERD without esophagitis (K21.9) Active confirmed Problem History of polyp of colon (situation) (055096645) History of colon polyps (Z86.0100) Active confirmed [...] N/A Encounters Encounter Location Date Provider Diagnosis [facility] [address] [place] [phone] 02/08/2025 Venkatesh Marsh History of colon gely yps Z86.0100 ; GERD without esophagitis K21.9 ; Colon cancer screening Z12.11 ; Anticoagulant long-term use Z79.01 ; Irregular bowel habits R19.8 and Scleroderma of esophagus M34.1 [facility] [address] [place] [phone] 02/08/2025 Venkatesh Marsh [facility] [address] [place] [address] 04/21/2025 Venkatesh Marsh Assessments Encounter Date Diagnosis [...] to speak with her stroke doctor at [place] who prescribes her clopidogrel so as to be sure that is not contraindicated from their standpoint. I did recommend a follow-up upper endoscopy given the description of her previous endoscopies and recommendations from her tank pumper in [place], [place]. She is not having any [...] but was advised to speak with her [place] physicians about those recommendations to be sure there is no contraindication to them. I advised her that she might need Lovenox for bridging while off the clopidogrel and pentoxifylline. However, I advised her that would be up to the physicians at [place]. These procedures will be scheduled for her at some point in the Fall. I do not think they need to be done sooner from a clinical standpoint based on no worrisome symptoms at the present time. I wanted to leave enough time for us to get information and ultimate clearance from all of her physicians at [facility]. She clearly has comorbidities including pulmonary issues, coronary artery disease, and cerebrovascular disease. I advised her to try to get clearance letters and summaries of her medical issues from the [place] physician such that we can share them with the medical staff and anesthesiologist at [facility] prior to her procedures. If it turns out that her [place] physicians do not think she is stable [...] to speak with her stroke doctor at [place] who prescribes her clopidogrel so as to be sure that is not contraindicated from their standpoint. I did recommend a follow-up upper endoscopy given the description of her previous endoscopies and recommendations from her tank pumper in [place], [place]. She is not having any [...] but was advised to speak with her [place] physicians about those recommendations to be sure there is no contraindication to them. I advised her that she might need Lovenox for bridging while off the clopidogrel and pentoxifylline. However, I advised her that would be up to the physicians at [place]. These procedures will be scheduled for her at some point in the Fall. I do not think they need to be done sooner from a clinical standpoint based on no worrisome symptoms at the present time. I wanted to leave enough time for us to get information and ultimate clearance from all of her physicians at [facility]. She clearly has comorbidities including pulmonary issues, coronary artery disease, and cerebrovascular disease. I advised her to try to get clearance letters and summaries of her medical issues from the [place] physician such that we can share them with the medical staff and anesthesiologist at [facility] prior to her procedures. If it turns out that her [place] physicians do not think she is stable [...] to speak with her stroke doctor at [place] who prescribes her clopidogrel so as to be sure that is not contraindicated from their standpoint. I did recommend a follow-up upper endoscopy given the description of her previous endoscopies and recommendations from her tank pumper in [place], [place]. She is not having any [...] but was advised to speak with her [facility] physicians about those recommendations to be sure there is no contraindication to them. I advised her that she might need Lovenox for bridging while off the clopidogrel and pentoxifylline. However, I advised her that would be up to the physicians at [place]. These procedures will be scheduled for her at some point in the Fall. I do not think they need to be done sooner from a clinical standpoint based on no worrisome symptoms at the present time. I wanted to leave enough time for us to get information and ultimate clearance from all of her physicians at [facility]. She clearly has comorbidities including pulmonary issues, coronary artery disease, and cerebrovascular disease. I advised her to try to get clearance letters and summaries of her medical issues from the [facility] physician such that we can share them with the medical staff and anesthesiologist at [facility] prior to her procedures. If it turns out that her [facility] physicians do not think she is stable [...] to speak with her stroke doctor at [facility] who prescribes her clopidogrel so as to be sure that is not contraindicated from their standpoint. I did recommend a follow-up upper endoscopy given the description of her previous endoscopies and recommendations from her tank pumper in [place], [place]. She is not having any [...] but was advised to speak with her [facility] physicians about those recommendations to be sure there is no contraindication to them. I advised her that she might need Lovenox for bridging while off the clopidogrel and pentoxifylline. However, I advised her that would be up to the physicians at [place]. These procedures will be scheduled for her at some point in the Fall. I do not think they need to be done sooner from a clinical standpoint based on no worrisome symptoms at the present time. I wanted to leave enough time for us to get information and ultimate clearance from all of her physicians at [facility]. She clearly has comorbidities including pulmonary issues, coronary artery disease, and cerebrovascular disease. I advised her to try to get clearance letters and summaries of her medical issues from the [facility] physician such that we can share them with the medical staff and anesthesiologist at [facility] prior to her procedures. If it turns out that her [facility] physicians do not think she is stable [...] to speak with her stroke doctor at [facility] who prescribes her clopidogrel so as to be sure that is not contraindicated from their standpoint. I did recommend a follow-up upper endoscopy given the description of her previous endoscopies and recommendations from her tank pumper in [place], [place]. She is not having any [...] but was advised to speak with her [facility] physicians about those recommendations to be sure there is no contraindication to them. I advised her that she might need Lovenox for bridging while off the clopidogrel and pentoxifylline. However, I advised her that would be up to the physicians at [facility]. These procedures will be scheduled for her at some point in the Fall. I do not think they need to be done sooner from a clinical standpoint based on no worrisome symptoms at the present time. I wanted to leave enough time for us to get information and ultimate clearance from all of her physicians at [facility]. She clearly has comorbidities including pulmonary issues, coronary artery disease, and cerebrovascular disease. I advised her to try to get clearance letters and summaries of her medical issues from the [facility] physician such that we can share them with the medical staff and anesthesiologist at [facility] prior to her procedures. If it turns out that her [facility] physicians do not think she is stable [...] to speak with her stroke doctor at [facility] who prescribes her clopidogrel so as to be sure that is not contraindicated from their standpoint. I did recommend a follow-up upper endoscopy given the description of her previous endoscopies and recommendations from her tank pumper in [place], [place]. She is not having any [...] but was advised to speak with her [facility] physicians about those recommendations to be sure there is no contraindication to them. I advised her that she might need Lovenox for bridging while off the clopidogrel and pentoxifylline. However, I advised her that would be up to the physicians at [place]. These procedures will be scheduled for her at some point in the Fall. I do not think they need to be done sooner from a clinical standpoint based on no worrisome symptoms at the present time. I wanted to leave enough time for us to get information and ultimate clearance from all of her physicians at [facility]. She clearly has comorbidities including pulmonary issues, coronary artery disease, and cerebrovascular disease. I advised her to try to get clearance letters and summaries of her medical issues from the [facility] physician such that we can share them with the medical staff and anesthesiologist at [facility] prior to her procedures. 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
== END 2025-06-13 09:59 | disposition home or self-care (01) ==
LOC: HO.LNP 09:58
PROVIDERS: PCP Family Medicine; Visit Provider Obstetrics & Gynecology
DX: R87.610 Atypical squamous cells of undetermined significance on cytologic smear of cervix (ASC-US) (principal); R87.810 Cervical high risk human papillomavirus (HPV) DNA test positive; N95.0 Postmenopausal bleeding
CPT/HCPCS: 57454; 88305; 88341; 88342

== ENCOUNTER 2025-06-14 14:29 | Outpatient (AMB) | payer MEDICARE, MEDICAID, SELFPAY ==
--- OUTSIDE RECORDS SUMMARY | 2025-06-01 03:30 | XMS_ITS ---
Author Organization [facility] Address [address] [place] [address] Care Team Providers Care Aircraft Assembler Name Role Phone Jayant Walker Primary Care Provider Unavailab Venkatesh Moss [facility] [phone] REASON FOR VISIT screening,egd Encounters Encounter Location Date Provider Diagnosis [facility] Outpatient [address] [place], [place] [phone] 06/01/2025 Venkatesh Marsh Plan Of Treatment No Information Progress Notes * CAMILA TORRESOB:[birth year] (64 yo F)Acc No.[id number]:06/01/2025 EGD and COL/MAC Patient: Savanah ROMAN TORRES Provider: Sharonda Marsh MD :1960 A ge:64 Y S ex:Female Date:06/01/2025 Address:[address] [place] [address] [facility] Pcp:Jayant Walker Subjective: * Chief Complaints: * [...] MD Date: Generated for Sommer francis/Elvia/Mercyitting on: 08/14/2024 04:12 PM EST
--- NOTE | 2025-06-14 15:05 | MHC.PC.OV ---
Vital Signs 06/14/25 15:16 Height 5 ft 8 in Weight 232 lb BMI 35.3 BP 138/70 Blood Pressure Location Rt brachial Position Sitting Respiration 16 Pulse 62 Pulse Source Pulse Oximeter Temp 97.8 F Temp Source Oral Pulse Oximetry (%) 98 Oxygen Delivery Method Room Air Intake Visit Reasons: f/u HTN, chronic conditions Intake Note: patient is scheduled to follow up for chronic conditions pt states her neurologist took her off of clopidogrel and will talk to patient about it at her next visit with them. Aluminum Shingle Roofer Required: No Allergies Penicillins Allergy (Severe, Verified 06/14/25 15:13) Anaphylaxis morphine Adverse Reaction (Intermediate, Verified 06/14/25 15:13) Confusion Tobacco use date assessed: 04/07/25 Dental Screening Dental Screen Date: 04/07/25 HPI f/u HTN, chronic conditions HPI Details 64 y/o female presents to f/u HTN, chronic conditions. Blood pressure today 138/70, 62p. She is on amlodipine-benazepril 5-10 mg daily. Pt reports ongoing chronic pain, particularly her knees, hips, shoulders. Continues to f/u with ObGYN for postmenopausal bleeding. [facility] Medical History Nonalcoholic fatty liver Migraine Hyperlipidemia CREST syndrome Chronic kidney disease Hypertension Pulmonary emboli Middle cerebral artery aneurysm Subclavian steal syndrome of right subclavian artery Chronic ischemic right MCA stroke Stroke Lung disease Surgical History S/P IVC filter H/O brain surgery Family History Maternal Grandmother FH: mental illness Brother FH: mental illness Sister FH: mental illness Father FH: mental illness Social History Housing: Apartment Alcohol intake: never Patient Tobacco Use Status: Never used Tobacco e-Cigarette/Vaping Use: Never Used Second Hand Smoke Exposure: No Substance Use Type: Other service: No Current occupational status: retired Current occupational exposures/hazards: No Cognitive needs: Yes (aphasia ) Hearing needs: No Vision needs: Yes Questionnaire Thrive Questionnaire Date Thrive assessed: 10/07/24 I am a: Patient What is your living situation today?: I have a steady place to live Within the past 12 months, did the food you bought not last and you didn't have the money to get more?: Sometimes True Within the past 12 months, did you worry whether your food would run out before you got money to buy more?: Sometimes True Do you have trouble paying for medicines?: Yes Do you have trouble getting transportation to medical appointments?: Yes Do you have trouble paying your heating and electricity bill?: No Do you have trouble taking care of your child, family member or friend?: No Do you have trouble with day-to-day activities such as bathing, preparing meals, shopping, managing finances, etc.?: Yes Are you currently unemployed and looking for a job?: No Are you interested in more education?: Yes THRIVE Score: 3 FLEX-7 AMB Questionnaire FLEX-7 Date FLEX - 7 assessed: 10/07/24 Source: Developed by Drs. Venkatesh Acuna, Kay Garcia, Kings Rooney and colleagues, with an educational haim from [employer]. Review of Systems Const Denies chills, Denies fatigue, Denies fever(s), Denies headache(s) and Denies weakness ENT Denies dizziness and Denies headache(s) Card Denies dyspnea Resp Denies cough, Denies dyspnea, Denies wheezing and Denies other (shortness of breath) Musc Denies numbness and Denies tingling Neuro Denies dizziness, Denies headache(s), Denies numbness, Denies tingling and Denies weakness Psych Denies anxiety and Denies depression Endo Denies fatigue Aller/Immun Denies wheezing Physical exam (Primary Care) Vital Signs: Last Vital Signs Temp 97.8 F 06/14/25 15:16 Pulse 62 06/14/25 15:16 Resp 16 06/14/25 15:16 BP 138/70 06/14/25 15:16 Pulse Ox 98 06/14/25 15:16 Oxygen Delivery Method Room Air 06/14/25 15:16 BMI result Body Mass Index 35.3 Tobacco/Smoking Status: Tobacco use Status Tobacco use date assessed 04/07/25 06/14/25 15:06 Patient Tobacco Use Status Never used Tobacco 06/14/25 15:06 e-Cigarette/Vaping Use Never Used 06/14/25 15:06 Thrive Assessment: Date of Thrive Assessment Date Thrive assessed 10/07/24 06/14/25 15:06 Const General: well developed; No acute distress Nutritional Appearance: well nourished Orientation/consciousness: patient oriented x3 HENMT Head: Yes normocephalic and Yes atraumatic Eyes General: appearance normal, both eyes and all related structures Pupils: Equal, round and reactive pupils present EOM: EOMs intact bilaterally Resp Effort & Inspection: normal respiratory effort Auscultation: clear to auscultation bilaterally Cardio Rate: regular rate Rhythm: regular rhythm Heart sounds: S1 normal heart sound present, S2 normal heart sound present, no gallops, no murmurs and no rubs Neuro General: patient oriented x3 and gait normal Cranial nerves: Yes Equal, round and reactive pupils present Psych Affect: normal affect Coding Level of Care Code Est Pt Level 4 (17232) Diagnoses Hypertension, unspecified type I10 Hypertension type: unspecified Chronic pain G89.29 Postmenopausal bleeding N95.0 Hypothyroidism, unspecified type E03.9 Hypothyroidism type: unspecified Assessment & Plan Assessment & Plan (1) Hypertension: Code(s): I10 - Essential (primary) hypertension Category: Medical Qualifiers: Hypertension type: unspecified Qualified Code(s): I10 - Essential (primary) hypertension Plan: Blood pressure is a little elevated today. Patient notes that she is dealing with increased pain from recent endometrial biopsy and cervical biopsies. She has aspirin and does not tolerate Tylenol She can use warm compresses and brief use Advil- do not exceed 2 days Also has Tramadal (2) Chronic pain: Code(s): G89.29 - Other chronic pain Category: Medical Plan: As above and she can also continue tramadol (3) Postmenopausal bleeding: Comment: Endometrial thickness 1 mm Recurrent vaginal bleeding Code(s): N95.0 - Postmenopausal bleeding Category: Medical Plan: Recent endometrial biopsy Follow-up with command post craftsman as recommended (4) Hypothyroidism: Code(s): E03.9 - Hypothyroidism, unspecified Category: Medical Qualifiers: Hypothyroidism type: unspecified Qualified Code(s): E03.9 - Hypothyroidism, unspecified Plan: TSH is mildly suppressed T4 and T3 are within normal range Will repeat thyroid hormone levels No change to her medications today. Orders: Orders Free T4 (Free Thyroxine) Today E03.9 - Hypothyroidism, unspecified Triiodothyronine T3 Total Today E03.9 - Hypothyroidism, unspecified Thyroid Stimulating Hormone Today E03.9 - Hypothyroidism, unspecified Medications: Refilled clindamycin phosphate 1% 1 appl topical DAILY 60 grams 2RF 30 days
[2025-06-14 15:16] VITALS: BP 138/70; PULSE 62; RESP 16; TEMP 36.6; O2SAT 98; BMI 35.3
--- OUTSIDE RECORDS SUMMARY | 2025-06-14 16:12 | XMS_ITS | Encounter Summary ---
Author Organization [facility] Address [address] [place] [address] Care Team Providers Care Die Tester Name Role Phone Sal Jose MD Primary Care Provider [phone] Encounter Details Date Type Department Care Team (Late st Contact Info) Description 08/14/2023 Transcribed Orders EXTERNAL REFERRAL SOURCE [address] [place] [address] Referral, Self Social History Tobacco Use Types [...] 800 [facility] [place] [address] Virgie Mast MD PhD [address] [place] [phone] 08/09/2025 1:00 PM EST Office Visit Pulmonary Critical [place] 136 [facility] 302 [place], [place] [address] Ramon Nixon MD [address] [place] [address] 302 [place] [phone] Ksenia Jain, RT 05/04/2026 1:45 PM EDT Office Visit Stroke 800 [facility] [place], [place] [id number] Kristine Kelly MD PhD 800 [facility] [place] [phone] 05/09/2026 1:00 PM EDT Follow Up Cardiovascular Medicine at 175 [facility] 175 [facility] THIRD FLOOR [place], [place] [address] Mike Hilario MD 175 [facility] [address] 2 [place] [phone] documented as of this encounter Visit Diagnoses Not on filedocumented in this encounter Care Teams Die Tester Relationship Specialty Start Date End Date Sal Jose MD [address] [phone] PCP - General Family Medicine 10/16/23 documented as of this encounter
--- OUTSIDE RECORDS SUMMARY | 2025-06-14 16:12 | XMS_ITS | Encounter Summary ---
Author Organization [facility] Address [address] [place] [phone] Care Team Providers Care Sales Specialist Name Role Phone Sal Jose MD Primary Care Provider Encounter Details Date Type Department Care Team (Late st Contact Info) Description 10/17/2023 Scanned Document [facility] Stroke [address] [place], [place] [address] Kristine Kelly MD PhD [address] [place] [phone] Social History Tobacco Use Types Packs/Day [...] [facility] Epilepsy & Seizures at 800 [facility] [address] [place], [place] [address] Virgie Mast MD PhD [address] [place] [phone] 08/09/2025 1:00 PM EST Office Visit [place]monary Critical [place] 136 [facility] [address] [place] [address] Ramon Nixon MD [address] [facility] [address] [place] [phone] Ksenia Jain, RT 05/04/2026 1:45 PM EDT Office Visit Stroke 800 [facility] [place] [address] Kristine Kelly MD PhD [address] [place] [phone] 05/09/2026 1:00 PM EDT Follow Up Cardiovascular Medicine at 175 [facility] [address] [facility] [place] [address] Mike Hilario MD [address] [facility] [address] [place] [phone] documented as of this encounter Visit Diagnoses Not on filedocumented in this encounter Care Teams Sales Specialist Relationship Specialty Start Date End Date Sal Jose MD [address] [phone] PCP - General Family Medicine 10/16/23 documented as of this encounter
--- OUTSIDE RECORDS SUMMARY | 2025-06-14 16:12 | XMS_ITS | Encounter Summary ---
Author Organization [facility] Address [address] [place] [phone] Care Team Providers Care Program Schedule Clerk Name Role Phone Sal Jose MD Primary Care Provider [phone] Encounter Details Date Type Department Care Team (Late Contact Info) Description 10/27/2023 Scanned Document [facility] SCHEDULING [address] [place], [place] [address] Provider, Historical . Social History Tobacco Use [...] Office Visit Epilepsy & Seizures at 800 [facility] 800 [facility] [place] [address] Virgie Mast MD PhD 800 [place] [phone] 08/09/2025 1:00 PM EST Office Visit Pulmonary Critical [place] 136 [facility] [address] [place], [place] [address] Ramon Nixon MD [address] [place] [address] 302 [place] [address] Ksenia Jain, RT 05/04/2026 1:45 PM EDT Office Visit Stroke 800 [facility] [place] [address] Kristine Kelly MD PhD 800 [place] [phone] 05/09/2026 1:00 PM EDT Follow Up Cardiovascular Medicine at 175 [facility] 175 [facility] THIRD FLO[place], [place] [address] Mike Hilario MD 175 [facility] 2 [place] [address] documented as of this encounter Visit Diagnoses Not on filedocumented in this encounter Care Teams Program Schedule Clerk Relationship Specialty Start Date End Date Sal Jose MD 10[address] [facility] [address] [place] [phone] PCP - General Family Medicine 10/16/23 documented as of this encounter
--- OUTSIDE RECORDS SUMMARY | 2025-06-14 16:12 | XMS_ITS | Encounter Summary ---
Author Organization [facility] and [facility] Address [address] [place] [address] Care Team Providers Care Quality Control Specialist Name Role Phone Sal Jose MD Primary Care Provider [phone] Encounter Details Date Type Department Care Team (Late Contact Info) Description 10/28/2023 Scanned Document CARE CENTER SCHEDULING 25 [place], [place] [address] Provider, Historical . Social History Tobacco Use [...] 800 [facility] [place] [address] Virgie Mast MD PhD 800 [place] [phone] 08/09/2025 1:00 PM EST Office Visit [place] 136 [facility] [address] [place], [place] [address] Ramon Nixon MD [address] [place] [address] 302 [place] [address] SoaresZakiKsenia, RT 05/04/2026 1:45 PM EDT Office Visit Stroke 800 [facility] [address] Kristine Kelly MD PhD 800 [place] [address] 05/09/2026 1:00 PM EDT Follow Up Cardiovascular Medicine at 175 [facility] 175 [facility] THIRD FLOOR [place], [place] [address] Mike Hilario MD 175 [facility] Fl 2 [place] [address] documented as of this encounter Procedures Procedure [...] filedocumented in this encounter Care Teams Quality Control Specialist Relationship Specialty Start Date End Date Sal Jose MD [facility] [address] [place] [address] PCP - General Family Medicine 10/16/23 documented as of this encounter
--- OUTSIDE RECORDS SUMMARY | 2025-06-14 16:12 | XMS_ITS | Encounter Summary ---
Author Organization [facility] Address Unknown Care Team Providers Care Pack Train Driver Name Role Phone Sal Jose MD Primary Care Provider [phone] Encounter Details Date Type Department Care Team (Late st Contact Info) Description 08/27/2023 Scanned Document [place] 136 [facility] 302 [place], [place] [address] External, Provider Social History Tobacco Use Types [...] Visit [facility] 800 [facility] 800 [facility] [place] [address] Virgie Mast MD PhD 800 [place] [address] 08/09/2025 1:00 PM EST Office [place] 136 [facility] 302 [place], [place] [address] Ramon Nixon MD 136 [facility] 302 [place] [address] Ksenia Jain, RT 05/04/2026 1:45 PM EDT Office Visit Stroke 800 [facility] [address] Kristine Kelly MD PhD 800 [facility] [place] [address] 05/09/2026 1:00 PM EDT Follow Up Cardiovascular Medicine at 175 [facility] 175 [facility] THIRD FLOOR [place], [place] [address] Mike Hilario MD 175 [facility] Fl 2 [place] [phone] documented as of this encounter Procedures Procedure Name Priority Date/Time Associated Diagnosis Comments CARDIAC ECHO RESULT SCAN Routine 08/27/2023 documented in this encounter Results * Cardiac Echo Result Scan (08/27/2023) Provider External CV CARDIAC REPORT (CVR) Final Result documented in this encounter Visit Diagnoses Not on filedocumented in this encounter Care Teams Pack Train Driver Relationship Specialty Start Date End Date Sal Jose MD [address] [address] PCP - General Family Medicine 10/16/23 documented as of this encounter
--- OUTSIDE RECORDS SUMMARY | 2025-06-14 16:12 | XMS_ITS | Encounter Summary ---
Author Organization [facility] and [facility] Address 20 [place] [address] Care Team Providers Care Bridge Teacher Name Role Phone Sal Jose MD Primary Care Provider [phone] Encounter Details Date Type Department Care Team (Late st Contact Info) Description 08/13/2023 Scanned Document EXTERNAL REFERRAL SOURCE 20 [place] [address] External, Provider Social History Tobacco Use Types [...] Visit [facility] 800 [facility] 800 [facility] [place] [address] Virgie Mast MD PhD 800 [place] [address] 08/09/2025 1:00 PM EST Office Visit [place] 136 [facility] 302 [place], [place] [address] Ramon Nixon MD [address] [place] [address] 302 [place] [address] Ksenia Jain, RT 05/04/2026 1:45 PM EDT Office Visit Stroke 800 [facility] Lower [place], [place] [address] Kristine Kelly MD PhD 800 [place] [address] 05/09/2026 1:00 PM EDT Follow Up Cardiovascular Medicine at 175 [facility] 175 [facility] THIRD FLOOR [place], [place] [address] Mike Hilario MD 175 [facility] Fl 2 [place] [address] documented as of this encounter Visit Diagnoses Not on filedocumented in this encounter Care Teams Bridge Teacher Relationship Specialty Start Date End Date Sal Jose MD [address] [phone] PCP - General Family Medicine 10/16/23 documented as of this encounter
--- OUTSIDE RECORDS SUMMARY | 2025-06-14 16:13 | XMS_ITS | Encounter Summary ---
Author Organization [facility] Address Unknown Care Team Providers Care Healthcare Receptionist Name Role Phone Sal Jose MD Primary Care Provider [phone] Encounter Details Date Type Department Care Team (Late st Contact Info) Description 11/19/2022 Scanned Document Pulmonary Critical [place] 136 [facility] 302 [place], [place] [address] External, Provider Social History Tobacco Use Types [...] 800 [facility] [place] [address] Virgie Mast MD PhD 800 [place] [address] 08/09/2025 1:00 PM EST Office Visit [place] Critical [place] 136 [facility] 302 [place], [place] [address] Ramon Nixon MD 136 [facility] 302 [place] [address] Ksenia Jain, RT 05/04/2026 1:45 PM EDT Office Visit Stroke 800 [facility] [place] [address] Kristine Kelly MD PhD 800 [place] [address] 05/09/2026 1:00 PM EDT Follow Up Cardiovascular Medicine at 175 [facility] 175 [facility] THIRD FLOOR [place], [place] [address] Mike Hilario MD 175 [facility] Fl 2 [place] [address] documented as of this encounter Visit Diagnoses Not on filedocumented in this encounter Care Teams Healthcare Receptionist Relationship Specialty Start Date End Date Sal Jose MD [address] [phone] PCP - General Family Medicine 10/16/23 documented as of this encounter
--- OUTSIDE RECORDS SUMMARY | 2025-06-14 16:13 | XMS_ITS | Encounter Summary ---
Author Organization [facility] and [facility] Address 20 [place] [address] Care Team Providers Care Welding Estimator Name Role Phone Sal Jose MD Primary Care Provider [phone] Encounter Details Date Type Department Care Team (Late Contact Info) Description 08/09/2014 Abstract [facility] at 175 [facility] 175 [place] [address] Emerita Beth MD 35 [place] [phone] Social History Tobacco Use Types Packs/Day Years [...] Visit [facility] 800 [facility] 800 [facility] [place], [place] [address] Virgie Mast MD PhD 800 [place] [phone] 08/09/2025 1:00 PM EST Office Visit [facility]monary Critical [place] 136 [facility] [address] [place], [place] [address] Ramon Nixon MD 136 [facility] 302 [place] [address] Ksenia Jain, RT 05/04/2026 1:45 PM EDT Office Visit Stroke 800 [facility] [place] [address] Kristine Kelly MD PhD 800 [place] [address] 05/09/2026 1:00 PM EDT Follow Up Cardiovascular Medicine at 175 [facility] 175 [facility] THIRD FLOOR [place], [place] [address] Mike Hilario MD 175 [facility] 2 [place] [address] documented as of this encounter Visit Diagnoses Not on filedocumented in this encounter Care Teams Welding Estimator Relationship Specialty Start Date End Date Sal Jose MD 1033 [facility] [address] [place] [phone] PCP - General Family Medicine 10/16/23 documented as of this encounter
--- OUTSIDE RECORDS SUMMARY | 2025-06-14 16:13 | XMS_ITS | Encounter Summary ---
Author Organization [facility] and [facility] Address [address] [place] [address] Care Team Providers Care Customer Operations Associate Name Role Phone Sal Jose MD Primary Care Provider Encounter Details Date Type Department Care Team (Late Contact Info) Description 10/28/2023 Scanned Document [facility] Neuro[facility] at [address] [place] [address] Joao Loredo MD [address] [place] [phone] Social History Tobacco Use Types Packs/Day Years [...] Office Visit [facility] at [address] [place] [address] Virgie Mast MD PhD [address] [place] [phone] 08/09/2025 1:00 PM EST Office [place] [address] [place] [address] [address] [place] [address] Ramon Nixon MD 136 [facility] 302 [place] [address] Cristobal Ksenia Carroll, RT 05/04/2026 1:45 PM EDT Office Visit Stroke [address] [facility] [place] [address] Kristine Kelly MD PhD 800 [facility] [place] [address] 05/09/2026 1:00 PM EDT Follow Up Cardiovascular Medicine at 175 [facility] 175 [facility] [place] [address] Mike Hilario MD 175 [facility] [address] 2 [place] [address] documented as of this encounter Procedures Procedure [...] MRI Result Scan (05/12/2020 11:48 AM EDT) [facility] Provider IMG SCAN REPORTS Final Resul t * MRI Result Scan (04/12/2020 12:01 PM EDT) Historical Provider IMG SCAN REPORTS Final Resul t * MRI Result Scan (04/12/2020 11:55 AM EDT) Result [facility] Historical Provider IMG SCAN REPORTS Final Resul t * MRI Result Scan (04/08/2020 12:04 PM EDT) Result [facility] Provider IMG SCAN REPORTS Final Resul t * CT Result Scan (02/25/2020 12:11 PM EDT) Historical Provider IMG SCAN REPORTS Final Resul t * MRI Result Scan (02/01/2020 12:16 PM EDT) Historical Provider IMG SCAN REPORTS Final Resul t * CT Result Scan (12/25/2018 12:21 PM EDT) [facility] Provider IMG SCAN REPORTS Final Resul t * CT Result Scan (08/25/2015 12:26 PM EST) Historical Provider IMG SCAN REPORTS Final Resul t * CT Result Scan (09/28/2012 12:30 PM EST) Historical Provider IMG SCAN REPORTS Final Resul t * CT Result Scan (09/07/2012 12:34 PM EST) [facility] Provider IMG SCAN REPORTS Final Resul t * CT Result Scan (02/13/2012 12:38 PM EDT) Result [facility] Provider IMG SCAN REPORTS Final Resul t * CT Result Scan (12/17/2010 1:03 PM EDT) Result [facility] Provider IMG SCAN REPORTS Final Resul t * CT Result Scan (12/17/2010 1:00 PM EDT) Result [facility] Provider IMG SCAN REPORTS Final Resul t * CT Result Scan (12/17/2010 12:56 PM EDT) Result [facility] Provider IMG SCAN REPORTS Final Resul t * CT Result Scan (12/17/2010 12:52 PM EDT) Result [facility] Provider IMG SCAN REPORTS Final Resul t * CT Result Scan (12/17/2010 12:46 PM EDT) Result [facility] Provider IMG SCAN REPORTS Final Resul t * CT Result Scan (12/17/2010 12:41 PM EDT) Result [facility] Provider IMG SCAN REPORTS Final Resul t documented in this encounter Visit Diagnoses Not on filedocumented in this encounter Care Teams Customer Operations Associate Relationship Specialty Start Date End Date Sal Jose MD [address] [place] [phone] PCP - General Family Medicine 10/16/23 documented as of this encounter
--- OUTSIDE RECORDS SUMMARY | 2025-06-14 16:13 | XMS_ITS | Encounter Summary ---
Author Organization [facility] and [facility] Address [address] [place] [address] Care Team Providers Care Energy Conservation Representative Name Role Phone Sal Jose MD Primary Care Provider Encounter Details Date Type Department Care Team (Late Contact Info) Description 08/31/[address] [facility] Laboratory Specimens [address] [place], [place] [address] System, Provider Not In CRST syndrome (HC [...] at 800 [facility] 800 [place], [place] [address] Virgie Mast MD PhD [address] [place] [phone] 08/09/2025 1:00 PM EST Office Visit Pulmonary Critical [place] 136 [facility] [address] [place] [address] Ramon Nixon MD 136 [facility] 302 [place] [address] Ksenia Jain, RT 05/04/2026 1:45 PM EDT Office Visit Stroke 800 [facility] [place] [address] Kristine Kelly MD PhD 800 [place] [address] 05/09/2026 1:00 PM EDT Follow Up Cardiovascular Medicine at 175 [facility] 175 [facility] [place] [address] Mike Hilario MD 175 [facility] [address] 2 [place] [address] Scheduled Orders Name Type Priority Associated Diagnoses [...] documented as of this encounter Care Teams Energy Conservation Representative Relationship Specialty Start Date End Date Sal Jose MD [address] [place] [address] PCP - General Family Medicine 10/16/23 documented as of this encounter
--- OUTSIDE RECORDS SUMMARY | 2025-06-14 16:13 | XMS_ITS | Encounter Summary ---
Author Organization [facility] Address Unknown Care Team Providers Care Acid Loader Name Role Phone Sal Jose MD Primary Care Provider [phone] Encounter Details Date Type Department Care Team (Late st Contact Info) Description 08/13/2023 Scanned Document Pulmonary Critical [place] 136 [facility] 302 [place], [place] [address] External, Provider Social History Tobacco Use Types [...] 800 [facility] [place] [address] Virgie Mast MD PhD 800 [place] [address] 08/09/2025 1:00 PM EST Office Visit [place]monary Critical [place] 136 [facility] 302 [place], [place] [address] Ramon Nixon MD 136 [facility] 302 [place] [address] Ksenia Jain, RT 05/04/2026 1:45 PM EDT Office Visit Stroke 800 [facility] [place] [address] Kristine Kelly MD PhD 800 [place] [address] 05/09/2026 1:00 PM EDT Follow Up Cardiovascular Medicine at 175 [facility] 175 [facility] THIRD [place], [place] [address] Mike Hilario MD 175 [facility] [address] 2 [place] [address] documented as of this encounter Visit Diagnoses Not on filedocumented in this encounter Care Teams Acid Loader Relationship Specialty Start Date End Date Sal Jose MD [address] [phone] PCP - General Family Medicine 10/16/23 documented as of this encounter
--- OUTSIDE RECORDS SUMMARY | 2025-06-14 16:13 | XMS_ITS | Encounter Summary ---
Author Organization [facility] Address Unknown Care Team Providers Care Clinical Research Coordinator Name Role Phone Sal Jose MD Primary Care Provider [phone] Encounter Details Date Type Department Care Team (Late st Contact Info) Description 11/27/2021 Scanned Document Pulmonary Critical [place] 136 [facility] 302 [place] [address] External, Provider Social History Tobacco Use Types [...] [facility] [place] [address] Virgie Mast MD PhD 800 [place] [address] 08/09/2025 1:00 PM EST Office Visit Pulmonary Critical [place] 136 [facility] 302 [place], [place] [address] Ramon Nixon MD 136 [facility] 302 [place] [address] Ksenia Jain, RT 05/04/2026 1:45 PM EDT Office Visit Stroke [address] [facility] [place] [address] Kristine Kelly MD PhD 800 [place] [address] 05/09/2026 1:00 PM EDT Follow Up Cardiovascular Medicine at 175 [facility] 175 [facility] THIRD FLOOR [place], [place] [address] Mike Hilario MD 175 [facility] [address] 2 [place] [address] documented as of this encounter Visit Diagnoses Not on filedocumented in this encounter Care Teams Clinical Research Coordinator Relationship Specialty Start Date End Date Sal Jose MD [address] [phone] PCP - General Family Medicine 10/16/23 documented as of this encounter
--- OUTSIDE RECORDS SUMMARY | 2025-06-14 16:13 | XMS_ITS | Encounter Summary ---
Author Organization [facility] Address Unknown Care Team Providers Care Wood Molder Name Role Phone Sal Jose MD Primary Care Provider [phone] Reason for Referral * General (Routine) - New Request Specialty Diagnoses / Procedures Referred By Contac t Referred To Contact Pulmonary Disease Procedures Pulmonary Function Test ([facility] Ramon Nioxn MD [address] [place] [address] 302 [place] [address] Phone: tel: fax: Referral ID Status Reason Start Date Expiration Date V isits Requested Visits Authorized [id number] New Request 08/31/2024 08/31/2025 1 1 Encounter Details Date Type Department Care Team (Late st Contact Info) Description 08/31/2024 Scanned Document Pulmonary Critical [place] 136 [facility] 302 [place], [place] [phone] Ramon Nixon MD [address] [place] [address] 302 [place] [address] Social History Tobacco Use Types [...] Office Visit Epilepsy & Seizures at 800 [facility] 800 [place] [address] Virgie Mast MD PhD 800 [place] [phone] 08/09/2025 1:00 PM EST Office Visit [place] Critical [place] 136 [facility] [address] [place] [address] Ramon Nixon MD 136 [facility] 302 [place] [address] Ksenia Jain, RT 05/04/2026 1:45 PM EDT Office Visit Stroke 800 [place] [address] Kristine Kelly MD PhD 800 [place] [address] 05/09/2026 1:00 PM EDT Follow Up Cardiovascular Medicine at 175 [facility] 175 [facility] [place] [address] Mike Hilario MD 175 [facility] Fl 2 [place] [address] documented as of this encounter Procedures Procedure [...] documented as of this encounter Care Teams Wood Molder Relationship Specialty Start Date End Date Sal Jose MD [facility] [address] [address] PCP - General Family Medicine 10/16/23 documented as of this encounter
--- OUTSIDE RECORDS SUMMARY | 2025-06-14 16:13 | XMS_ITS | Encounter Summary ---
Author Organization [facility] Address Unknown Care Team Providers Care Cell Operation Supervisor Name Role Phone Sal Jose MD Primary Care Provider [phone] Encounter Details Date Type Department Care Team (Late st Contact Info) Description 05/11/2024 Scanned Document [place]monary [place] 136 [facility] [address] [place], [place] [address] Ramon Nixon MD 136 [facility] 302 [place] [phone] Social History Tobacco Use Types Packs/Day Years [...] 800 [facility] 800 [place] [address] Virgie Mast MD PhD [address] [place], [place] [address], [place] [address] 08/09/2025 1:00 PM EST Office Visit [place]monary Critical [place] 136 [facility] [address] [place] [address] Ramon Nixon MD 136 [facility] 302 [place] [address] Cristobal Ksenia [place], RT 05/04/2026 1:45 PM EDT Office Visit Stroke 800 [facility] [place] [address] Kristine Kelly MD PhD 800 [place] [phone] 05/09/2026 1:00 PM EDT Follow Up Cardiovascular Medicine at 175 [facility] 175 [facility] [place] [address] Mike Hilario MD 175 [facility] [address] 2 [place] [address] documented as of this encounter Visit Diagnoses Not on filedocumented in this encounter Additional Health Concerns Assessment Noted Time PHQ-9 Depression Total Score: 0 04/07/20 2:31 PM EDT documented as of this encounter Care Teams Cell Operation Supervisor Relationship Specialty Start Date End Date Sal Jose MD [facility] [address] [address] PCP - General Family Medicine 10/16/23 documented as of this encounter
--- OUTSIDE RECORDS SUMMARY | 2025-06-14 16:13 | XMS_ITS | Patient Health Record ---
Author Organization [facility] Address [address] [place] [address] Care Team Providers Care Park Worker Name Role Phone Jayant Walker Primary Care Provider Venkatesh Mauro [phone] Allergies Allergen (clinical drug ingredient) Drug/Non Drug [...] Status Risk Notes Problem Colon cancer screening (481688251) Colon cancer screening (Z12.11) Active confirmed Problem Irregular bowel habits (085464320) Irregular bowel habits (R19.8) Active confirmed Problem Long-term current use of anticoagulant (656693718) Anticoagulant long-term use (Z79.01) Active confirmed Problem Systemic sclerosis (42487591) 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) Active confirmed Problem Gastroesophageal reflux disease (747310684) GERD without esophagitis (K21.9) Active confirmed Problem History of polyp of colon (situation) (480972963) History of colon polyps (Z86.0100) Active confirmed [...] N/A Encounters Encounter Location Date Provider Diagnosis [facility] [address] [place] [phone] 02/08/2025 Venkatesh Marsh History of colon gely yps Z86.0100 ; GERD without esophagitis K21.9 ; Colon cancer screening Z12.11 ; Anticoagulant long-term use Z79.01 ; Irregular bowel habits R19.8 and Scleroderma of esophagus M34.1 [facility] [address] [place] [phone] 02/08/2025 Venkatesh Marsh [facility] [address] [place] [address] 04/21/2025 Venkatesh Marsh Assessments Encounter Date Diagnosis [...] to speak with her stroke doctor at [place] who prescribes her clopidogrel so as to be sure that is not contraindicated from their standpoint. I did recommend a follow-up upper endoscopy given the description of her previous endoscopies and recommendations from her natural gas plant supervisor in [place], [place]. She is not having any [...] but was advised to speak with her [place] physicians about those recommendations to be sure there is no contraindication to them. I advised her that she might need Lovenox for bridging while off the clopidogrel and pentoxifylline. However, I advised her that would be up to the physicians at [place]. These procedures will be scheduled for her [...] summaries of her medical issues from the [place] physician such that we can share them with the medical staff and anesthesiologist at [facility] prior to her procedures. If it turns out that her [place] physicians do not think she is stable [...] to speak with her stroke doctor at [place] who prescribes her clopidogrel so as to be sure that is not contraindicated from their standpoint. I did recommend a follow-up upper endoscopy given the description of her previous endoscopies and recommendations from her natural gas plant supervisor in [place], [place]. She is not having any [...] but was advised to speak with her [place] physicians about those recommendations to be sure there is no contraindication to them. I advised her that she might need Lovenox for bridging while off the clopidogrel and pentoxifylline. However, I advised her that would be up to the physicians at [place]. These procedures will be scheduled for her [...] summaries of her medical issues from the [place] physician such that we can share them with the medical staff and anesthesiologist at [facility] prior to her procedures. If it turns out that her [place] physicians do not think she is stable [...] to speak with her stroke doctor at [place] who prescribes her clopidogrel so as to be sure that is not contraindicated from their standpoint. I did recommend a follow-up upper endoscopy given the description of her previous endoscopies and recommendations from her natural gas plant supervisor in [place], [place]. She is not having any [...] but was advised to speak with her [place] physicians about those recommendations to be sure there is no contraindication to them. I advised her that she might need Lovenox for bridging while off the clopidogrel and pentoxifylline. However, I advised her that would be up to the physicians at [place]. These procedures will be scheduled for her [...] summaries of her medical issues from the [place] physician such that we can share them with the medical staff and anesthesiologist at [facility] prior to her procedures. If it turns out that her [place] physicians do not think she is stable [...] to speak with her stroke doctor at [place] who prescribes her clopidogrel so as to be sure that is not contraindicated from their standpoint. I did recommend a follow-up upper endoscopy given the description of her previous endoscopies and recommendations from her natural gas plant supervisor in [place]. She is not having any [...] but was advised to speak with her [place] physicians about those recommendations to be sure there is no contraindication to them. I advised her that she might need Lovenox for bridging while off the clopidogrel and pentoxifylline. However, I advised her that would be up to the physicians at [place]. These procedures will be scheduled for her [...] summaries of her medical issues from the [place] physician such that we can share them with the medical staff and anesthesiologist at [facility] prior to her procedures. If it turns out that her [place] physicians do not think she is stable [...] to speak with her stroke doctor at [place] who prescribes her clopidogrel so as to be sure that is not contraindicated from their standpoint. I did recommend a follow-up upper endoscopy given the description of her previous endoscopies and recommendations from her natural gas plant supervisor in [place], [place]. She is not having any [...] but was advised to speak with her [place] physicians about those recommendations to be sure there is no contraindication to them. I advised her that she might need Lovenox for bridging while off the clopidogrel and pentoxifylline. However, I advised her that would be up to the physicians at [place]. These procedures will be scheduled for her [...] summaries of her medical issues from the [place] physician such that we can share them with the medical staff and anesthesiologist at [facility] prior to her procedures. If it turns out that her [place] physicians do not think she is stable [...] to speak with her stroke doctor at [place] who prescribes her clopidogrel so as to be sure that is not contraindicated from their standpoint. I did recommend a follow-up upper endoscopy given the description of her previous endoscopies and recommendations from her natural gas plant supervisor in [place], [place]. She is not having any [...] but was advised to speak with her [place] physicians about those recommendations to be sure there is no contraindication to them. I advised her that she might need Lovenox for bridging while off the clopidogrel and pentoxifylline. However, I advised her that would be up to the physicians at [place]. These procedures will be scheduled for her [...] summaries of her medical issues from the [place] physician such that we can share them with the medical staff and anesthesiologist at [facility] prior to her procedures. 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
--- OUTSIDE RECORDS SUMMARY | 2025-06-14 16:13 | XMS_ITS | Encounter Summary ---
Author Organization [facility] Address [address] [place] [phone] Care Team Providers Care Dairy Equipment Repairer Name Role Phone Sal Jose MD Primary Care Provider Encounter Details Date Type Department Care Team (Late Contact Info) Description 10/28/2023 Scanned Document [facility] [address] [place] [address] Joao Loredo MD [address] [place] [phone] Social History Tobacco Use Types Packs/Day Years [...] Office Visit [facility] [address] [place] [address] Virgie Mast MD PhD [address] [place] [phone] 08/09/2025 1:00 PM EST Office Visit [facility] Critical [place] [address] [place] [address] [address] [place] [address] Ramon Nixon MD 136 [facility] [address] [place] [phone] Ksenia Jain, RT 05/04/2026 1:45 PM EDT Office Visit Stroke 800 [facility] [place] [address] Kristine Kelly MD PhD 800 [place] [phone] 05/09/2026 1:00 PM EDT Follow Up Cardiovascular Medicine at 175 [facility] 175 [facility] THIRD FLOOR [place], [place] 44[address] Mike Hilario MD 175 [facility] Fl 2 [place] [phone] documented as of this encounter Visit Diagnoses Not on filedocumented in this encounter Care Teams Dairy Equipment Repairer Relationship Specialty Start Date End Date Sal Jose MD [address] [phone] PCP - General Family Medicine 10/16/23 documented as of this encounter
--- OUTSIDE RECORDS SUMMARY | 2025-06-14 16:13 | XMS_ITS | Encounter Summary ---
Author Organization [facility] Address [address] [address] Phone Care Team Providers Care Screen Printing Machine Loader Unloader Name Role Phone Sal Jose MD Primary Care Provider [phone] Encounter Details Date Type Department Care Team (Late Contact Info) Description 05/25/2024 Scanned Document [facility] - [address] [address] Nain Cat MD [address] [place] [phone] Social History Tobacco Use Types Packs/Day [...] Visit [facility] at 800 [facility] 800 [place] [address] Virige Mast MD PhD 800 [place] [phone] 08/09/2025 1:00 PM EST Office Visit Pulmonary Critical [place] 136 [facility] [address] [place], [place] [address] Ramon Nixon MD 136 [facility] [address] [place] [address] Ksenia Jain, RT 05/04/2026 1:45 PM EDT Office Visit Stroke 800 [facility] [place] [address] rKistine Kelly MD PhD 800 [place] [phone] 05/09/2026 1:00 PM EDT Follow Up Cardiovascular Medicine at 175 [facility] 175 [facility] THIRD FLOOR [place], [place] [address] Mike Hilario MD 175 [facility] 2 [place] [phone] documented as of this encounter Visit Diagnoses Not on filedocumented in this encounter Additional Health Concerns Assessment Noted Time PHQ-9 Depression Total Score: 0 04/07/20 2:31 PM EDT documented as of this encounter Care Teams Screen Printing Machine Loader Unloader Relationship Specialty Start Date End Date Sal Jose MD [facility] [address] [phone] PCP - General Family Medicine 10/16/23 documented as of this encounter
--- OUTSIDE RECORDS SUMMARY | 2025-06-14 16:13 | XMS_ITS | Encounter Summary ---
Author Organization [facility] Address [address] [place] [address] Care Team Providers Care Manager Medicare Marketing Name Role Phone Sal Jose MD Primary Care Provider [phone] Reason for Visit * Reason Onset Date Comments Holter/Event Monitor 11/13/2023 Trying to E nroll Pt for MCT monitor Encounter Details Date Type Department Care Team (Late st Contact Info) Description 11/13/2023 Telephone [facility] 800 [place], [place] [address] Kristine Kelly MD PhD 800 [place] [phone] Holter/Event Monitor (Trying to Enroll Pt for [...] encounter Miscellaneous Notes * Telephone Encounter - rKistine Kelly MD PhD - 11/22/2023 8:19 AM [...] [facility] [place] [address] Virgie Mast MD PhD 800 [place] [phone] 08/09/2025 1:00 PM EST Office Visit Pulmonary Critical [place] [address] 1522[address] Ramon Nixon MD [address] [place] [address] [place] [address] Ksenia Jain Carly, RT 05/04/2026 1:45 PM EDT Office Visit Stroke 800 [facility] [place] [address] Kristine Kelly MD PhD 800 [place] [phone] 05/09/2026 1:00 PM EDT Follow Up Cardiovascular Medicine at 175 [facility] 175 [facility] THIRD FLOOR [place], [place] [address] Mike Hilario MD 175 [facility] 2 [place] [address] documented as of this encounter Visit Diagnoses Not on filedocumented in this encounter Care Teams Manager Medicare Marketing Relationship Specialty Start Date End Date Sal Jose MD 1033 [facility] [address] [place] [phone] PCP - General Family Medicine 10/16/23 documented as of this encounter
--- OUTSIDE RECORDS SUMMARY | 2025-06-14 16:13 | XMS_ITS | Encounter Summary ---
Author Organization [facility] and [facility] Address [address] [place] [address] Care Team Providers Care Fans Clerk Name Role Phone Sal Jose MD Primary Care Provider [phone] Encounter Details Date Type Department Care Team (Late Contact Info) Description 10/28/2023 Scanned Document [facility] at [address] [place] [address] Joao Loredo MD [address] [place] [phone] Social History Tobacco Use Types Packs/Day Years [...] Office Visit [facility] [address] [place] [phone] Virgie Mast MD PhD [address] [place] [phone] 08/09/2025 1:00 PM EST Office Visit [facility] Critical [facility] [address] [place] [address] [address] [place] [address] Ramon Nixon MD 136 [facility] [address] [place] [phone] Ksenia Jain, RT 05/04/2026 1:45 PM EDT Office Visit Stroke 800 [facility] [place] [address] Kristine Kelly MD PhD 800 [place] [address] 05/09/2026 1:00 PM EDT Follow Up Cardiovascular Medicine at 175 [facility] 175 [facility] [place] [address] Mike Hilario MD 175 [facility] Fl 2 [place] [address] documented as of this encounter Procedures Procedure [...] Result Scan (02/06/2022 11:26 AM EDT) Result [facility] Provider IMG SCAN REPORTS Final Resul t documented in this encounter Visit Diagnoses Not on filedocumented in this encounter Care Teams Fans Clerk Relationship Specialty Start Date End Date Sal Jose MD 1033 [facility] [address] [place] [phone] PCP - General Family Medicine 10/16/23 documented as of this encounter
--- OUTSIDE RECORDS SUMMARY | 2025-06-14 16:13 | XMS_ITS | Clinical Summary ---
Author Organization [facility] Address 20 [place] [address] Phone Care Team Providers Care Plateman Name Role Phone Sal Jose MD Primary Care Provider [phone] Allergies Active Allergy Reactions Criticality Noted Date [...] EDT Follow Up Cardiovascular Medicine at [address] [place] [address] Mike Hilario MD NSVT (nonsustained ventricular tachycardia) (HC Code) (HC CODE) (Primary Dx); Chronic ischemic right MCA stroke; Aneurysm of middle cerebral artery; Scleroderma (HC CODE); ILD (interstitial lung disease) (HC Code) (HC CODE); History of pulmonary embolism 04/28/2025 1:45 PM EDT Office Visit [facility] 800 [place] [address] Kristine Kelly MD PhD Chronic ischemic right [...] Visit [facility] 800 [facility] 800 [place] [address] Virgie Mast MD PhD 800 [place] [address] 08/09/2025 1:00 PM EST Office Visit Pulmonary Critical [facility] 136 [facility] [address] [place] [address] Ramon Nixon MD 136 [facility] 302 [place] [address] Ksenia Jain, RT 05/04/2026 1:45 PM EDT Office Visit [facility] Stroke 800 [place] [address] Kristine Kelly MD PhD 800 [place] [address] 05/09/2026 1:00 PM EDT Follow Up Cardiovascular Medicine at 175 [facility] 175 [facility] [place] [address] Mike Hilario MD 175 [facility] [address] [place] [phone] Health Maintenance Due Date Last Done Comments [...] QTC Interval 446 ms SRC EKG P [place] 65 deg SRC EKG QRS [place] 25 deg SRC EKG T Wave [place] 41 deg SRC EKG P-R Interval 162 [...] 136 - 144 mmol/L 07/23/2024 3:09 PM [facility]PART[facility] OF LABORAT[facility] MEDICINE Potassium 4.2 3.3 - 5.3 mmol/L 07/23/2024 3:09 PM [facility]ATORY MEDICINE Chloride 105 98 - 107 mmol/L 07/23/2024 3:09 PM [facility] LAB[facility] MEDIC[facility] CO2 26 20 - 30 mmol/L 07/23/2024 3:09 PM [facility]AT[facility] MEDICINE Anion Gap 13 7 - 17 07/23/2024 3:09 PM [facility]PART[facility] OF LAB[facility]ATORY MEDICINE Glucose [...] >60 >=60 mL/min/1.73m2 07/23/2024 3:[address] [facility] DEPARTMENT OF LABORATORY MEDICINE Comment: [employer] utilizes CKD-EPI Creatinine 2020 to report eGFR. Values < 60 mL/min/1.73 m2 may indicate CKD if present for more than three months AND creatinine is at steady state. The eGFR provides a rough estimate of kidney function. For further guidance, please refer to the CKD: Adult Bag Press Operator Signature pathway. Creatinine Delta 0.01 See Comment 024 3:09 PM [facility] DEPARTMENT [...] [facility] DEPART[facility] MEDICINE [address] [place] [address] from Last 3 Months or Most Recently Relevant to Health Maintenance [place] [address] [address] [id number] MEDICAID [place] [address] [address] [id number] 1-[place] [address] [facility] [address] [address] [id number] MEDICAID [place] [address] [address] [facility] Care Teams Plateman Relationship Specialty Start Date End Date Sal Jose MD [address] [place] [phone] PCP - General Family Medicine 10/16/23
--- OUTSIDE RECORDS SUMMARY | 2025-06-14 16:13 | XMS_ITS | Encounter Summary ---
Author Organization [facility] Address [address] [place] [address] Care Team Providers Care Motorcycle Police Name Role Phone Sal Jose MD Primary Care Provider [phone] Encounter Details Date Type Department Care Team (Late Contact Info) Description 07/21/2024 Transcribed Orders [facility] Specimens 55 [place], [place] [address] System, Provider Not In CRST syndrome (HC [...] [facility][Note 2] 800 [place], [place] [address] Virgie Mast MD PhD [address] [place] [phone] 08/09/2025 1:00 PM EST Office Visit Pulmonary Critical [place] 136 [facility] [address] [place], [place] [address] Ramon Nixon MD 136 [facility] 302 [place] [phone] Ksenia Jain, RT 05/04/2026 1:45 PM EDT Office Visit Stroke 800 [facility][Note 2] Lower [place], [place] [address] Kristine Kelly MD PhD 800 [place] [phone] 05/09/2026 1:00 PM EDT Follow Up Cardiovascular Medicine at 175 [facility] 175 [facility] THIRD FLOOR [place], [place] [address] Mike Hilario MD 175 [facility] Fl 2 [place] [phone] documented as of this encounter Results * Sedimentation rate (ESR) (07/23/2024 1:13 PM EST) Sedimentation Rate (ESR) 12 0 - 20 mm/hr 07/23/2024 2:55 PM EST [facility] DEPARTMENT OF LABORATORY MEDICINE Blood Venipuncture / Unknown 07/23/2024 1:13 PM EST 07/23/2024 2:24 PM EST us Provider Not In System LAB BLOOD ORDERABLES Evelin smith Result [facility] DEPARTMENT OF LABORATORY MEDICINE [address] [place] [address] documented in this encounter Visit Diagnoses Diagnosis 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
--- OUTSIDE RECORDS SUMMARY | 2025-06-14 16:13 | XMS_ITS | Encounter Summary ---
Author Organization [facility] Address [address] [place] [id number] Care Team Providers Care Director Of Cloud Services Name Role Phone Sal Jose MD Primary Care Provider [phone] Encounter Details Date Type Department Care Team (Late Contact Info) Description 12/04/2023 Transcribed Orders [facility] Specimens [address] [place] [address] System, Provider Not In CREST variant of [...] Health [facility] [place] [address] Virgie Mast MD PhD [address] [place] [phone] 08/09/2025 1:00 PM EST Office Visit Pulmonary Critical [place] 136 [facility] [address] [place] [address] Ramon Ron MD [address] [place] [address] [address] [place] [address] LavelleKrishna, Ksenia Carroll, RT 05/04/2026 1:45 PM EDT Office Visit Stroke [address] [facility] Lower [place], [place] [id number] Kristine Kelly MD PhD [address] [place] [address] 05/09/2026 1:00 PM EDT Follow Up Cardiovascular Medicine at 175 [facility] 175 [facility] [place] [address] Mike Hilario MD 175 [facility] [address] 2 [place] [address] documented as of this encounter Results * Sedimentation rate (ESR) (05/20/2024 12:53 PM EDT) Pathologist [facility] Sedimentation Rate (ESR) 4 0 - 20 mm/hr 05/20/2024 1:59 PM EDT [facility] DEPARTMENT OF LABORATORY MEDICINE Blood Venipuncture / Unknown 05/20/2024 12:53 PM EDT 05/20/2024 1:31 PM EDT us Provider Not In System LAB BLOOD ORDERABLES Evelin smith Result Performing Organization Address City/State/[facility] Co de Phone Number [facility] DEPARTMENT OF LABORATORY MEDICINE [address] [place] [address] * (ABNORMAL) C-reactive protein (CRP) (04/15/2024 12:20 PM EDT) CRP, High Sensitivity 3.1(H) See comment mg/L 04/15/2024 3:42 PM EDT [facility] DEPARTMENT OF LABORATORY MEDICINE Comment: hs-CRP Risk [...] ORDERABLES Evelin l Result Performing Organization Address [facility] Co de Phone Number [facility] DEPARTMENT OF LABORATORY MEDICINE [address] [place] [address] * (ABNORMAL) Sedimentation rate (ESR) (04/15/2024 12:20 PM EDT) Sedimentation Rate (ESR) 24(H) 0 - 20 mm/hr 04/15/2024 3:41 PM EDT [facility] DEPARTMENT OF LABORATORY MEDICINE Blood Venipuncture / Unknown 04/15/2024 12:20 PM EDT 04/15/2024 2:54 PM EDT us Provider Not In System LAB BLOOD ORDERABLES Evelin l Result Performing Organization Address [facility] Co de Phone Number [facility] DEPARTMENT OF LABORATORY MEDICINE [address] [place] [address] * (ABNORMAL) C-reactive protein (CRP) (03/17/2024 10:36 AM EDT) CRP, High Sensitivity 6.3(H) See comment mg/L 03/17/2024 11:47 AM EDT [facility] DEPARTMENT OF LABORATORY MEDICINE Comment: hs-CRP Risk [...] ORDERABLES Evelin l Result Performing Organization Address [facility]/ZIP Co de Phone Number [facility] DEPARTMENT OF LABORATORY MEDICINE [address] [place] [address] * (ABNORMAL) Sedimentation rate (ESR) (03/17/2024 10:36 AM EDT) Sedimentation Rate (ESR) 23(H) 0 - 20 mm/hr 03/17/2024 11:46 AM EDT [facility] DEPARTMENT OF LABORATORY MEDICINE Blood Venipuncture / Unknown 03/17/2024 10:36 AM EDT 03/17/2024 11:15 AM EDT us Provider Not In System LAB BLOOD ORDERABLES Evelin l Result Performing Organization Address [facility] de Phone Number [facility] DEPARTMENT OF LABORATORY MEDICINE [address] [place] [address] * (ABNORMAL) C-reactive protein (CRP) (02/20/2024 3:41 PM EDT) CRP, High Sensitivity 8.9(H) See comment mg/L 02/20/2024 4:36 PM EDT [facility] DEPARTMENT OF LABORATORY MEDICINE Comment: hs-CRP Risk [...] ORDERABLES Evelin l Result Performing Organization Address [facility] Co de Phone Number [facility] DEPARTMENT OF LABORATORY MEDICINE [address] [place] [address] * Sedimentation rate (ESR) (02/20/2024 3:41 PM EDT) Sedimentation Rate (ESR) 18 0 - 20 mm/hr 02/20/2024 7:04 PM EDT [facility] DEPARTMENT OF LABORATORY MEDICINE Blood Venipuncture / Unknown 02/20/2024 3:41 PM EDT 02/20/2024 4:04 PM EDT Provider Not In System LAB BLOOD ORDERABLES Evelin l Result Performing Organization Address [facility] Co de Phone Number [facility] DEPARTMENT OF LABORATORY MEDICINE [address] [place] [address] * (ABNORMAL) C-reactive protein (CRP) (12/09/2023 1:52 PM EDT) CRP, High Sensitivity 4.4(H) See comment mg/L 12/09/2023 4:44 PM EDT [facility] DEPARTMENT OF LABORATORY MEDICINE Comment: hs-CRP Risk [...] ORDERABLES Evelin l Result Performing Organization Address [facility] Co de Phone Number [facility] DEPARTMENT OF LABORATORY MEDICINE [address] [place] [address] * Sedimentation rate (ESR) (12/09/2023 1:52 PM EDT) Sedimentation Rate (ESR) 10 0 - 20 mm/hr 12/09/2023 5:08 PM EDT [facility] DEPARTMENT OF LABORATORY MEDICINE Blood Venipuncture / Unknown 12/09/2023 1:52 PM EDT 12/09/2023 4:20 PM EDT us Provider Not In System LAB BLOOD ORDERABLES Evelin l Result [facility] DEPARTMENT OF LABORATORY MEDICINE [address] [place] [address] documented in this encounter Visit Diagnoses 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
--- OUTSIDE RECORDS SUMMARY | 2025-06-14 16:13 | XMS_ITS | Clinical Summary ---
Author Organization [email or web address] Address [address] [place] [address] 7[address] [place] [address] Care Team Providers Care Land Law Examiner Name Role Phone Cordell Saba Unavailable Unavailable [...] Pulmonary embolism 06/05/2012 Overview (07/29/2024): 1990- in [place] Primary hypertension 02/13/2012 Hypothyroidism 02/04/2012 Overview (07/29/2024): [...] Health Maintenance Insurance 1[place] [id number] [facility] FULL MEDICARE HSN FULL MEDICARE [place] [id number] DENTAL - HSN FULL (MEDICAID) Care Teams Land Law Examiner Relationship Specialty Start Date End Date [facility] 08/12/24 CASSIDY DE LA FUENTE NPI ID: [id number] Address: [address] [place] [id number] Primary Care Physician [phone] Primary Care Provider 08/12/18
--- OUTSIDE RECORDS SUMMARY | 2025-06-14 16:13 | XMS_ITS | Encounter Summary ---
Author Organization [facility] Address Unknown Care Team Providers Care Medical Policy Specialist Name Role Phone Sal Jose MD Primary Care Provider [phone] Encounter Details Date Type Department Care Team (Late st Contact Info) Description 08/13/2023 Scanned Document Pulmonary Critical [place] [address] [facility] 302 [place], [place] [phone] External, Provider Social History Tobacco Use Types [...] [facility] at 800 [facility] 800 [facility] [place] [address] Virgie Mast MD PhD [address] [place] [phone] 08/09/2025 1:00 PM EST Office Visit [place] [address] [facility] 302 [place], [place] [address] Ramon Nixon MD 136 [facility] 302 [place] [phone] Ksenia Jain, RT 05/04/2026 1:45 PM EDT Office Visit Stroke 800 [facility] [place] [address] Kristine Kelly MD PhD [address] [place] [phone] 05/09/2026 1:00 PM EDT Follow Up Cardiovascular Medicine at 175 [facility] 175 [facility] THIRD FLOOR [place], [place] [address] Mike Hilario MD 175 [facility] [address] [place] [phone] documented as of this encounter Visit Diagnoses Not on filedocumented in this encounter Care Teams Medical Policy Specialist Relationship Specialty Start Date End Date Sal Jose MD [address] [phone] PCP - General Family Medicine 10/16/23 documented as of this encounter
--- OUTSIDE RECORDS SUMMARY | 2025-06-14 16:13 | XMS_ITS | Encounter Summary ---
Author Organization [facility] Address Unknown Care Team Providers Care Microbiological Analyst Name Role Phone Sal Jose MD Primary Care Provider [phone] Encounter Details Date Type Department Care Team (Late st Contact Info) Description 11/27/2021 Scanned Document Pulmonary Critical [place] 136 [facility] 302 [place] [address] Gaviota Rivera, YOSI Social History Tobacco Use [...] Hospital 800 [facility] [place] [address] Virgie Mast MD PhD 800 [place] [phone] 08/09/2025 1:00 PM EST Office Visit Pulmonary Critical [place] 136 [facility] 302 [place], [place] [address] Ramon Nixon MD 136 [facility] 302 [place] [phone] Ksenia Jain, RT 05/04/2026 1:45 PM EDT Office Visit Stroke 800 [facility] [place] [address] Kristine Kelly MD PhD 800 [place] [phone] 05/09/2026 1:00 PM EDT Follow Up Cardiovascular Medicine at 175 [facility] 175 [facility] [place] [address] Mike Hilario MD 175 [facility] [address] [place] [phone] documented as of this encounter Visit Diagnoses Not on filedocumented in this encounter Care Teams Microbiological Analyst Relationship Specialty Start Date End Date Sal Jose MD [address] [phone] PCP - General Family Medicine 10/16/23 documented as of this encounter
--- OUTSIDE RECORDS SUMMARY | 2025-06-14 16:13 | XMS_ITS | Encounter Summary ---
Author Organization [facility] Address Unknown Care Team Providers Care Lead Radiologic Technologist Name Role Phone Sal Jose MD Primary Care Provider [phone] Encounter Details Date Type Department Care Team (Late st Contact Info) Description 11/19/2022 Scanned Document Pulmonary Critical [place] 136 [facility] 302 [place], [place] [address] External, Provider Social History Tobacco Use Types [...] Health [facility] [address] Virgie Mast MD PhD [address] [place] [phone] 08/09/2025 1:00 PM EST Office Visit [place]monary Critical [place] 136 [facility] 302 [place], [place] [address] Ramon Nixon MD 136 [facility] 302 [place] [phone] Ksenia Jain, RT 05/04/2026 1:45 PM EDT Office Visit Stroke [address] [facility] [place] [address] Kristine Kelly MD PhD [address] [place] [phone] 05/09/2026 1:00 PM EDT Follow Up Cardiovascular Medicine at 175 [facility] 175 [facility] THIRD FLOOR [place], [place] [address] Mike Hilario MD 175 [facility] [address] [place] [address] documented as of this encounter Visit Diagnoses Not on filedocumented in this encounter Care Teams Lead Radiologic Technologist Relationship Specialty Start Date End Date Sal Jose MD [address] [phone] PCP - General Family Medicine 10/16/23 documented as of this encounter
== END 2025-06-14 15:58 | disposition home or self-care (01) ==
LOC: HO.HMCFM 14:30
PROVIDERS: PCP Family Medicine; Visit Provider Family Medicine
DX: I10 Essential (primary) hypertension (principal); G89.29 Other chronic pain; N95.0 Postmenopausal bleeding; E03.9 Hypothyroidism, unspecified

== ENCOUNTER → 2025-06-14 14:29 | Outpatient (BNVA) | payer MEDICARE, MEDICAID, SELFPAY | PROVIDERS: PCP Family Medicine; Visit Provider Family Medicine | DX: I10 Essential (primary) hypertension (principal); G89.29 Other chronic pain; N95.0 Postmenopausal bleeding; E03.9 Hypothyroidism, unspecified | CPT/HCPCS: 99212 ==

== ENCOUNTER 2025-06-28 09:43 | Outpatient (AMB) | payer MEDICARE, MEDICAID, SELFPAY ==
--- NOTE | 2025-06-28 09:49 | A.OFFVIS_ITS ---
Vital Signs 06/28/25 09:53 Height 5 ft 8 in Weight 232 lb BMI 35.3 Handedness Right Intake Visit Reasons: Right knee pain and giving way Intake Note: Bernadette is a 64 year old female who presents with complaints of progressively worsening right knee pain. She describes her pain as sharp in nature. Her pain has gotten worse over the last few years in spite of continued non operative treatments. The patient states that she did injure her right knee approximately 20 years ago. She twisted her knee and had acute onset of pain. She has failed the last 6 weeks of conservative treatment which has included Tylenol, anti- inflammatory medicines, a home exercise program and physical therapy exercises. Most of the pain is along the medial aspect of her knee. She states that her right knee will give out several times per day. At this point her right knee pain and mechanical symptoms are interfering with her activities of daily living and her ability to sleep well through the night. Allergies Penicillins Allergy (Severe, Verified 06/28/25 09:53) Anaphylaxis morphine Adverse Reaction (Severe, Verified 06/28/25 09:54) Confusion Medication List - Last Reconciled 06/28/25 by Jacob Guajardo MD albuterol sulfate 2.5 mg continuous nebulization albuterol sulfate 90 mcg/actuation 2 inhalations inhalation Q6-8H PRN amlodipine-benazepril 5-10 mg 1 cap PO DAILY 90 days aspirin 81 mg PO DAILY atorvastatin 80 mg PO DAILY budesonide 0.5 mg inhalation budesonide-formoterol 160-4.5 mcg/actuation inhalation cetirizine 10 mg PO DAILY PRN clindamycin phosphate 1% 1 appl topical DAILY 30 days cyanocobalamin (vitamin B-12) 1,000 mcg IM QMONTH 30 days diclofenac sodium 1% (Arthritis Pain (diclofenac)) 4 grams topical BID 30 days fenofibrate 150 mg PO DAILY gabapentin 400 mg PO 3XD isosorbide mononitrate ER 30 mg PO QAM levetiracetam mg PO levothyroxine 50 mcg PO DAILY 90 days levothyroxine 200 mcg PO DAILY 90 days lidocaine 5% topical metoprolol succinate ER 25 mg PO BID 90 days montelukast 10 mg PO DAILY mycophenolate mofetil orally 250mg capsules 5 pills BID; pantoprazole 20 mg PO BID pentoxifylline ER 400 mg PO TID silver sulfadiazine 1% (Silvadene) 1 appl topical BID 10 days syringe with needle, safety (BD Integra Syringe) As directed tramadol 50 mg PO BID PRN 30 days zolpidem 5 mg PO BEDTIME PRN 30 days MDD 10mg PFSH Medical History Nonalcoholic fatty liver Migraine Hyperlipidemia CREST syndrome Chronic kidney disease Hypertension Pulmonary emboli Middle cerebral artery aneurysm Subclavian steal syndrome of right subclavian artery Chronic ischemic right MCA stroke Stroke Lung disease Surgical History S/P IVC filter H/O brain surgery Family History Maternal Grandmother FH: mental illness Brother FH: mental illness Sister FH: mental illness Father FH: mental illness Social History Housing: Apartment Alcohol intake: never Patient Tobacco Use Status: Never used Tobacco e-Cigarette/Vaping Use: Never Used Second Hand Smoke Exposure: No Substance Use Type: Other service: No Current occupational status: retired Current occupational exposures/hazards: No Cognitive needs: Yes (aphasia ) Hearing needs: No Vision needs: Yes Physical Exam Vital Signs: BMI result Body Mass Index 35.3 Const Other: Well-nourished well-developed very friendly female awake alert and oriented x3 in no acute distress Extrem Other: Right knee examination shows a minimal effusion, mild crepitus with range of motion, tenderness along her medial joint line, positive Parul's test, no instability Results Reviewed Results Reviewed: X-rays of the patient's right knee show mild diffuse joint space narrowing, no acute bony abnormalities Assessment & Plan Assessment & Plan (1) Tear of medial meniscus of right knee: Code(s): S83.241A - Other tear of medial meniscus, current injury, right knee, initial encounter Category: Medical Plan Ms. Mercedes presents with right knee pain and mechanical symptoms most likely due to a medial meniscus tear. Thus, I will send the patient for an MRI of her right knee for further evaluation. I will see her back once the MRI is completed to discuss the findings and treatment options. Feel free to call me at any time should questions regarding her orthopedic management arise. Thank you very much for asking me to see this very friendly patient. I spent 22 minutes in reviewing the patient's records and imaging studies, seeing the patient and documenting in the medical record. Orders: Orders MR knee RT wo con 06/29/25 S83.241A - Other tear of medial meniscus, current injury, right knee, initial encounter Coding Level of Care Code New Pt Level 3 (48101) Complex visit Add On G2211 Diagnoses Tear of medial meniscus of right knee S83.241A
[2025-06-28 09:53] VITALS: BMI 35.3
--- OUTSIDE RECORDS SUMMARY | 2025-06-28 11:20 | XMS_ITS | Encounter Summary ---
Author Organization [facility] and [facility] Address [address] [place] [phone] Care Team Providers Care Supplies Packer Name Role Phone Sal Jose MD Primary Care Provider Encounter Details Date Type Department Care Team (Late st Contact Info) Description 12/04/2023 Transcribed Orders [facility] Laboratory Specimens [address] [place] [address] System, Provider Not In CREST variant of [...] Care Team (Late st Contact Info) Description 08/09/2025 1:00 PM EST Office Visit Pulmonary Critical [place] 136 [facility] 302 [place], [place] [address] Ramon Nixon MD [address] [place] [address] 302 [place] [phone] Ksenia Jain, 12/20/2025 1:30 PM EDT Office Visit [facility] at 800 [facility] 800 [place] [address] Ricarda Craven, [place] 800 [place] [phone] 05/04/2026 1:45 PM EDT Office Visit Stroke 800 [place] [address] Kristine Kelly MD PhD 800 [place] [phone] 05/09/2026 1:00 PM EDT Follow Up Cardiovascular Medicine at 175 [facility] 175 [facility] THIRD FLOOR [place], [place] [address] Mike Hilario MD [address] [place] [address] 2 [place] [phone] 07/26/2026 11:40 AM EST Office Visit Epilepsy & Seizures at 800 [facility] 800 [place] [address] Virgie Mast MD PhD 800 [place] [address] documented as of this encounter Results * Sedimentation rate (ESR) (05/20/2024 12:53 PM EDT) Sedimentation Rate (ESR) 4 0 - 20 mm/hr 05/20/2024 1:59 PM EDT [facility] Blood Venipuncture / Unknown 05/20/2024 12:53 PM EDT 05/20/2024 1:31 PM EDT us Provider Not In System LAB BLOOD ORDERABLES Evelin smith Result [facility]ORAT[facility] MEDICINE [address] [place] [address], [facility] [phone] * (ABNORMAL) C-reactive protein (CRP) (04/15/2024 12:20 PM EDT) CRP, High Sensitivity 3.1(H) See comment mg/L 04/15/2024 3:42 PM EDT [facility]IC[facility] Comment: hs-CRP [...] ORDERABLES Evelin l Result Performing Organization Address City/[facility]/ZIP Co de Phone Number [facility]PART[facility] OF [facility]ORATORY MEDICINE [address] [place] [address] * (ABNORMAL) Sedimentation rate (ESR) (04/15/2024 12:20 PM EDT) Sedimentation Rate (ESR) 24(H) 0 - 20 mm/hr 04/15/2024 3:41 PM EDT [facility]IC[facility] Blood Venipuncture / Unknown 04/15/2024 12:20 PM EDT 04/15/2024 2:54 PM EDT us Provider Not In System LAB BLOOD ORDERABLES Evelin l Result [facility]ICINE [address] [place] [address] * (ABNORMAL) C-reactive protein (CRP) (03/17/2024 10:36 AM EDT) CRP, High Sensitivity 6.3(H) See comment mg/L 03/17/2024 11:47 AM EDT [facility]OR[facility] MEDICINE Comment: hs-CRP [...] ORDERABLES Evelin l Result Performing Organization Address City/[facility]/ZIP Co de Phone Number [facility]ICINE [address] [place] [address] * (ABNORMAL) Sedimentation rate (ESR) (03/17/2024 10:36 AM EDT) Sedimentation Rate (ESR) 23(H) 0 - 20 mm/hr 03/17/2024 11:46 AM EDT [facility]IC[facility] Blood Venipuncture / Unknown 03/17/2024 10:36 AM EDT 03/17/2024 11:15 AM EDT us Provider Not In System LAB BLOOD ORDERABLES Evelin l Result Performing Organization Address [facility] Co de Phone Number [facility] DEPARTMENT OF LABORATORY MEDICINE [address] [place] [address] * (ABNORMAL) C-reactive protein (CRP) (02/20/2024 3:41 PM EDT) CRP, High Sensitivity 8.9(H) See comment mg/L 02/20/2024 4:36 PM EDT [facility]OR[facility]ICINE Comment: hs-CRP [...] ORDERABLES Evelin l Result Performing Organization Address City/[facility] Co de Phone Number [facility]AT[facility] MEDICINE [address] [place] [address] * Sedimentation rate (ESR) (02/20/2024 3:41 PM EDT) Sedimentation Rate (ESR) 18 0 - 20 mm/hr 02/20/2024 7:04 PM EDT [facility]IC[facility] Blood Venipuncture / Unknown 02/20/2024 3:41 PM EDT 02/20/2024 4:04 PM EDT us Provider Not In System LAB BLOOD ORDERABLES Evelin l Result Performing Organization Address [facility] de Phone Number [facility] DEPART[facility] OF LABORATORY MEDICINE [address] [place] [address] * (ABNORMAL) C-reactive protein (CRP) (12/09/2023 1:52 PM EDT) CRP, High Sensitivity 4.4(H) See comment mg/L 12/09/2023 4:44 PM EDT [facility]OR[facility]ORY MEDICINE Comment: hs-CRP [...] ORDERABLES Evelin l Result Performing Organization Address City/[facility] Co de Phone Number [facility]ICINE [address] [place] [address] * Sedimentation rate (ESR) (12/09/2023 1:52 PM EDT) Sedimentation Rate (ESR) 10 0 - 20 mm/hr 12/09/2023 5:08 PM EDT [facility] Blood Venipuncture / Unknown 12/09/2023 1:52 PM EDT 12/09/2023 4:20 PM EDT us Provider Not In System LAB BLOOD ORDERABLES Evelin l Result Performing Organization Address [facility] de Phone Number [facility] DEPART[facility]ORATORY MEDICINE [address] [place] [address] documented in this encounter Visit Diagnoses 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
--- OUTSIDE RECORDS SUMMARY | 2025-06-28 11:20 | XMS_ITS | Encounter Summary ---
Author Organization [facility] and [facility] Address [address] [place] [phone] Care Team Providers Care Engineer Automated Equipment Name Role Phone Sal Jose MD Primary Care Provider Encounter Details Date Type Department Care Team (Late st Contact Info) Description 10/28/2023 Scanned Document [facility] at 800 [facility] 800 [facility] [place] [address] Joao Loredo MD 800 [place] [phone] Social History Tobacco Use Types Packs/Day Years [...] [place] 136 [facility] [address] [place], [place] [phone] Ramon Nixon MD 136 [facility] 302 [place] [address] Ksenia Jain, 12/20/2025 1:30 PM EDT Office Visit [facility] Ep[facility] Seizures at 800 [facility] 800 [place] [address] Ricarda Craven, [place] 800 [place] [phone] 05/04/2026 1:45 PM EDT Office Visit Stroke 800 [facility], [place] [address] Kristine Kelly MD PhD 800 [place] [phone] 05/09/2026 1:00 PM EDT Follow Up Cardiovascular Medicine at 175 [facility] 175 [facility] [place] [address] Mike Hilario MD [address] [place] [address] 2 [place] [phone] 07/26/2026 11:40 AM EST Office Visit [facility] Epilepsy [facility] Seizures at 800 [facility] 800 [place] [address] Virgie Mast MD PhD 800 [place] [phone] documented as of this encounter Procedures Procedure [...] CT Result Scan (07/21/2023 1:08 PM EST) [facility] Provider IMG SCAN REPORTS Final Resul t * CT Result Scan (05/17/2021 11:42 AM EDT) Historical Provider IMG SCAN REPORTS Final Resul t * MRI Result Scan (05/12/2020 11:48 AM EDT) Result [facility] Provider IMG SCAN REPORTS Final Resul t * MRI Result Scan (04/12/2020 12:01 PM EDT) Result [facility] Provider IMG SCAN REPORTS Final Resul t * MRI Result Scan (04/12/2020 11:55 AM EDT) Historical Provider IMG SCAN REPORTS Final Resul t * MRI Result Scan (04/08/2020 12:04 PM EDT) Historical Provider IMG SCAN REPORTS Final Resul t * CT Result Scan (02/25/2020 12:11 PM EDT) [facility] Provider IMG SCAN REPORTS Final Resul t * MRI Result Scan (02/01/2020 12:16 PM EDT) Historical Provider IMG SCAN REPORTS Final Resul t * CT Result Scan (12/25/2018 12:21 PM EDT) Result [facility] Provider IMG SCAN REPORTS Final Resul t * CT Result Scan (08/25/2015 12:26 PM EST) Result [facility] Provider IMG SCAN REPORTS Final Resul t * CT Result Scan (09/28/2012 12:30 PM EST) Result [facility] Provider IMG SCAN REPORTS Final Resul t * CT Result Scan (09/07/2012 12:34 PM EST) Result [facility] Provider IMG SCAN REPORTS Final Resul t * CT Result Scan (02/13/2012 12:38 PM EDT) Result [facility] Provider IMG SCAN REPORTS Final Resul t * CT Result Scan (12/17/2010 1:03 PM EDT) Result [facility] Provider IMG SCAN REPORTS Final Resul t * CT Result Scan (12/17/2010 1:00 PM EDT) Result [facility] Provider IMG SCAN REPORTS Final Resul t * CT Result Scan (12/17/2010 12:56 PM EDT) Result [facility] Provider IMG SCAN REPORTS Final Resul t * CT Result Scan (12/17/2010 12:52 PM EDT) Result [facility] Provider IMG SCAN REPORTS Final Resul t * CT Result Scan (12/17/2010 12:46 PM EDT) Result [facility] Provider IMG SCAN REPORTS Final Resul t * CT Result Scan (12/17/2010 12:41 PM EDT) Result [facility] Provider IMG SCAN REPORTS Final Resul t documented in this encounter Visit Diagnoses Not on filedocumented in this encounter Care Teams Engineer Automated Equipment Relationship Specialty Start Date End Date Sal Jose MD [address] [phone] PCP - General Family Medicine 10/16/23 documented as of this encounter
--- OUTSIDE RECORDS SUMMARY | 2025-06-28 11:20 | XMS_ITS | Encounter Summary ---
Author Organization [facility] and [facility] Address [address] [place] [address] Care Team Providers Care Windshield Installer Name Role Phone Sal Jose MD Primary Care Provider [phone] Encounter Details Date Type Department Care Team (Late st Contact Info) Description 08/14/2023 Transcribed Orders EXTERNAL REFERRAL SOURCE [address] [place] [address] Referral, Self Social History Tobacco Use Types [...] EST Office Visit Pulmonary Critical [place] 136 [facility] 302 [place] [address] Ramon Nixon MD [address] [place] [address] 302 [place] [address] Ksenia Jain RT 12/20/2025 1:30 PM EDT Office Visit [facility] Ep[facility] Seizures at 800 [facility] 800 [facility] [place] [address] Ricarda Craven APRN 800 [place] [phone] 05/04/2026 1:45 PM EDT Office Visit Stroke 800 [facility] [address] Kristine Kelly MD PhD 800 [place] [phone] 05/09/2026 1:00 PM EDT Follow Up Cardiovascular Medicine at 175 [facility] 175 [facility] [place] [address] Mike Hilario MD 175 [facility] 2 [place] [phone] 07/26/2026 11:40 AM EST Office Visit Epilepsy & Seizures at 800 [facility] 800 [facility] [place] [address] Virgie Mast MD PhD 800 [place] [phone] documented as of this encounter Visit Diagnoses Not on filedocumented in this encounter Care Teams Windshield Installer Relationship Specialty Start Date End Date Sal Jose MD [address] [phone] PCP - General Family Medicine 10/16/23 documented as of this encounter
--- OUTSIDE RECORDS SUMMARY | 2025-06-28 11:20 | XMS_ITS | Encounter Summary ---
Author Organization [facility] and [facility] Address [address] [place] [phone] Care Team Providers Care Embedded Linux Engineer Name Role Phone Sal Jose MD Primary Care Provider Reason for Visit * Reason Onset Date Comments Holter/Event Monitor 11/13/2023 Trying to E nroll Pt for MCT monitor Encounter Details Date Type Department Care Team (Late st Contact Info) Description 11/13/2023 Telephone [facility] Stroke 800 [place], [place] [address] Kristine Kelly MD PhD 800 [place] [phone] Holter/Event Monitor (Trying to Enroll Pt for [...] EST Office Visit Pulmonary Critical [place] 136 [facility] 302 [place] [address] Ramon Nixon MD 136 [facility] 302 [place] [phone] Ksenia Jain, 12/20/2025 1:30 PM EDT Office Visit [facility] Epilepsy [facility] Seizures at [address] 800 [facility] [place] [address] Ricarda Craven, [place] 800 [place] [phone] 05/04/2026 1:45 PM EDT Office Visit Stroke 800 [place] [address] Kristine Kelly MD PhD 800 [place] [phone] 05/09/2026 1:00 PM EDT Follow Up Cardiovascular Medicine at 175 [facility] 175 [facility] THIRD FLOOR [place], [place] [address] Mike Hilario MD 175 [facility] 2 [place] [phone] 07/26/2026 11:40 AM EST Office Visit Epilepsy & Seizures at 800 [facility] 800 [place] [address] Virgie Mast MD PhD 800 [place] [phone] documented as of this encounter Visit Diagnoses Not on filedocumented in this encounter Care Teams Embedded Linux Engineer Relationship Specialty Start Date End Date Sal Jose MD [address] [phone] PCP - General Family Medicine 10/16/23 documented as of this encounter
--- OUTSIDE RECORDS SUMMARY | 2025-06-28 11:20 | XMS_ITS | Encounter Summary ---
Author Organization [facility] and [facility] Address [address] [place] [phone] Care Team Providers Care Tone Cabinet Assembler Name Role Phone Sal Jose MD Primary Care Provider [phone] Encounter Details Date Type Department Care Team (Late st Contact Info) Description 10/28/2023 Scanned Document [facility] Neurosurgery at 800 [facility] 800 [facility] [place] [address] Joao Loredo MD 800 [place] [phone] Social History Tobacco Use Types Packs/Day Years [...] EST Office Visit Pulmonary Critical [place] 136 [facility] [address] [place], [place] [address] Ramon Nixon MD 136 [facility] 302 [place] [address] Ksenia Jain, 12/20/2025 1:30 PM EDT Office Visit Epilepsy & Seizures at 800 [facility] 800 [place] [address] Ricarda Craven, [place] 800 [place] [phone] 05/04/2026 1:45 PM EDT Office Visit Stroke 800 [facility], [place] [address] Kristine Kelly MD PhD 800 [place] [phone] 05/09/2026 1:00 PM EDT Follow Up Cardiovascular Medicine at 175 [facility] 175 [facility] [place] [address] Mike Hilario MD [address] [place] [address] 2 [place] [phone] 07/26/2026 11:40 AM EST Office Visit Epilepsy & Seizures at 800 [facility] 800 [place] [address] Virgie Mast MD PhD 800 [place] [phone] documented as of this encounter Procedures Procedure [...] CT Result Scan (02/06/2022 11:32 AM EDT) [facility] Provider IMG SCAN REPORTS Final Resul t * CT Result Scan (02/06/2022 11:26 AM EDT) [facility] Provider IMG SCAN REPORTS Final Resul t documented in this encounter Visit Diagnoses Not on filedocumented in this encounter Care Teams Tone Cabinet Assembler Relationship Specialty Start Date End Date Sal Jose MD [facility] [address] [place] [phone] PCP - General Family Medicine 10/16/23 documented as of this encounter
--- OUTSIDE RECORDS SUMMARY | 2025-06-28 11:20 | XMS_ITS | Encounter Summary ---
Author Organization [facility] and [facility] Address [address] [place] [phone] Care Team Providers Care Fuel Conversion Technician Name Role Phone Sal Jose MD Primary Care Provider [phone] Encounter Details Date Type Department Care Team (Late st Contact Info) Description 10/27/2023 Scanned Document [facility] CENTER SCHEDULING 25 [place], [place] [address] Provider, Historical . [phone] (Fax) Social History Tobacco Use Types Packs/Day [...] Department Care Team (Late Contact Info) Description 08/09/2025 1:00 PM EST Office Visit Pulmonary Critical [place] 136 [facility] [address] [place], [place] [address] Ramon Nixon MD [address] [place] [address] 302 [place] [phone] Ksenia Jain, 12/20/2025 1:30 PM EDT Office Visit Epilepsy & Seizures at [address] 800 [facility] [place] [address] Ricarda Craven, [place] 800 [place] [phone] 05/04/2026 1:45 PM EDT Office Visit YM Stroke 800 [place] [address] Kristine Kelly MD PhD 800 [place] [phone] 05/09/2026 1:00 PM EDT Follow Up Cardiovascular Medicine at 175 [facility] 175 [facility] THIRD FLOOR [place], [place] [address] Mike Hilario MD 175 [facility] 2 [place] [phone] 07/26/2026 11:40 AM EST Office Visit Epilepsy & Seizures at 800 [facility] 800 [place] [address] Virgie Mast MD PhD 800 [place] [phone] documented as of this encounter Visit Diagnoses Not on filedocumented in this encounter Care Teams Fuel Conversion Technician Relationship Specialty Start Date End Date Sal Jose MD [address] [phone] PCP - General Family Medicine 10/16/23 documented as of this encounter
--- OUTSIDE RECORDS SUMMARY | 2025-06-28 11:20 | XMS_ITS | Encounter Summary ---
Author Organization [facility] and [facility] Address 20 [place] [address] Care Team Providers Care Clearing Hand Name Role Phone Sal Jose MD Primary Care Provider Encounter Details Date Type Department Care Team (Late st Contact Info) Description 08/13/2023 Scanned Document EXTERNAL REFERRAL SOURCE [address] [place] [id number] External, Provider Social History Tobacco Use Types [...] EST Office Visit Pulmonary Critical [place] 136 [facility] 302 [place] [address] Ramon Nixon MD [address] [place] [address] 302 [place] [phone] Ksenia Jain RT 12/20/2025 1:30 PM EDT Office Visit [facility] Ep[facility] Seizures at 800 [facility] 800 [facility] [address] Ricarda Craven APRN 800 [place] [phone] 05/04/2026 1:45 PM EDT Office Visit Stroke 800 [place] [address] Kristine Kelly MD PhD 800 [place] [phone] 05/09/2026 1:00 PM EDT Follow Up Cardiovascular Medicine at 175 [facility] 175 [facility] [place] [address] Mike Hilario MD 175 [facility] 2 [place] [phone] 07/26/2026 11:40 AM EST Office Visit Epilepsy & Seizures at 800 [facility] 800 [place] [address] Virgie Mast MD PhD 800 [place] [phone] documented as of this encounter Visit Diagnoses Not on filedocumented in this encounter Care Teams Clearing Hand Relationship Specialty Start Date End Date Sal Jose MD [address] [phone] PCP - General Family Medicine 10/16/23 documented as of this encounter
--- OUTSIDE RECORDS SUMMARY | 2025-06-28 11:20 | XMS_ITS | Encounter Summary ---
Author Organization [facility] and [facility] Address [address] [place] [address] Care Team Providers Care Crusher Plant Operator Name Role Phone Sal Jose MD Primary Care Provider [phone] Encounter Details Date Type Department Care Team (Late st Contact Info) Description 10/28/2023 Scanned Document CARE CENTER SCHEDULING 25 [place], [place] [address] Provider, Historical . [phone] (Fax) Social History Tobacco Use Types Packs/Day [...] EST Office Visit Pulmonary Critical [place] 136 [facility] [address] [place], [place] [address] Ramon Nixon MD [address] [place] [address] 302 [place] [phone] Ksenia Jain, 12/20/2025 1:30 PM EDT Office Visit Epilepsy & Seizures at [address] 800 [facility] Lower [place], [place] [address] Ricarda Craven, [place] 800 [facility] [place] [phone] 05/04/2026 1:45 PM EDT Office Visit Stroke 800 [place] [address] Kristine Kelly MD PhD 800 [place] [phone] 05/09/2026 1:00 PM EDT Follow Up Cardiovascular Medicine at 175 [facility] 175 [facility] [place] [address] Mike Hilario MD 175 [facility] 2 [place] [phone] 07/26/2026 11:40 AM EST Office Visit Epilepsy & Seizures at 800 [facility] 800 [place] [address] Virgie Mast MD PhD 800 [place] [phone] documented as of this encounter Procedures Procedure [...] on filedocumented in this encounter Care Teams Crusher Plant Operator Relationship Specialty Start Date End Date Sal Jose MD [address] [phone] PCP - General Family Medicine 10/16/23 documented as of this encounter
--- OUTSIDE RECORDS SUMMARY | 2025-06-28 11:20 | XMS_ITS | Encounter Summary ---
Author Organization [facility] and [facility] Address [address] [place] [phone] Care Team Providers Care Maritime Engineer Name Role Phone Sal Jose MD Primary Care Provider [phone] Encounter Details Date Type Department Care Team (Late st Contact Info) Description 10/17/2023 Scanned Document [facility] Stroke 800 [place] [address] Kristine Kelly MD PhD 800 [place] [phone] Social History Tobacco Use Types Packs/Day Years [...] EST Office Visit Pulmonary Critical [place] 136 [facility] [address] [place], [place] [address] Ramon Nixon MD 136 [facility] 302 [place] [phone] Ksenia Jain, 12/20/2025 1:30 PM EDT Office Visit [facility] at 800 [facility] 800 [place] [address] Ricarda Craven APRN 800 [place] [phone] 05/04/2026 1:45 PM EDT Office Visit Stroke 800 [place], [place] [phone] Kristine Kelly MD PhD 800 [place] [phone] 05/09/2026 1:00 PM EDT Follow Up Cardiovascular Medicine at 175 [facility] 175 [facility] THIRD [place], [place] [address] Mike Hilario MD [address] [place] [phone] 07/26/2026 11:40 AM EST Office Visit Epilepsy & Seizures at 800 [facility] 800 [place] [address] Virgie Mast MD PhD 800 [place] [phone] documented as of this encounter Visit Diagnoses Not on filedocumented in this encounter Care Teams Maritime Engineer Relationship Specialty Start Date End Date Sal Jose MD [facility]3 [facility] [place] [address] [place] [phone] PCP - General Family Medicine 10/16/23 documented as of this encounter
--- OUTSIDE RECORDS SUMMARY | 2025-06-28 11:20 | XMS_ITS | Encounter Summary ---
Author Organization [facility] Address Unknown Care Team Providers Care Construction Administrative Assistant Name Role Phone Sal Jose MD Primary Care Provider [phone] Encounter Details Date Type Department Care Team (Late st Contact Info) Description 08/27/2023 Scanned Document Pulmonary Critical [place] 136 [facility] 302 [place], [place] [address] External, Provider Social History Tobacco Use Types [...] 1:00 PM EST Office Visit Pulmonary Critical [place] 136 [facility] 302 [place] [address] Ramon Nixon MD 136 [facility] 302 [place] [phone] Ksenia Jain, 12/20/2025 1:30 PM EDT Office Visit [facility] at [address] 800 [facility] [place] [address] Ricarda Craven APRN 800 [place] [phone] 05/04/2026 1:45 PM EDT Office Visit Stroke 800 [facility] [place] [address] Kristine Kelly MD PhD 800 [place] [phone] 05/09/2026 1:00 PM EDT Follow Up Cardiovascular Medicine at 175 [facility] 175 [facility] [place] [address] Mike Hilario MD 175 [facility] Fl 2 [place] [address] 07/26/2026 11:40 AM EST Office Visit Epilepsy & Seizures at 800 [facility] 800 [facility] [place] [address] Virgie Mast MD PhD 800 [place] [phone] documented as of this encounter Procedures Procedure Name Priority Date/Time Associated Diagnosis Comments CARDIAC ECHO RESULT SCAN Routine 08/27/2023 documented in this encounter Results * Cardiac Echo Result Scan (08/27/2023) us Provider External CV CARDIAC REPORT (CVR) Final Result documented in this encounter Visit Diagnoses Not on filedocumented in this encounter Care Teams Construction Administrative Assistant Relationship Specialty Start Date End Date Sal Jose MD [facility] [address] [phone] PCP - General Family Medicine 10/16/23 documented as of this encounter
--- OUTSIDE RECORDS SUMMARY | 2025-06-28 11:20 | XMS_ITS | Encounter Summary ---
Author Organization [facility] and [facility] Address [address] [place] [phone] Care Team Providers Care Reed Or Wind Instrument Tuner Name Role Phone Sal Jose MD Primary Care Provider [phone] Encounter Details Date Type Department Care Team (Late st Contact Info) Description 10/28/2023 Scanned Document [facility] Neurosurgery at 800 [facility] 800 [facility] [place] [address] Joao Loredo MD 800 [place] [phone] Social History Tobacco Use Types Packs/Day Years [...] EST Office Visit Pulmonary Critical [place] 136 [facility] [address] [place], [place] [phone] Ramon Nixon MD 136 [facility] 302 [place] [address] Ksenia Jain, 12/20/2025 1:30 PM EDT Office Visit [facility] at 800 [facility] 800 [place] [address] Ricarda Craven, [place] 800 [place] [phone] 05/04/2026 1:45 PM EDT Office Visit Stroke 800 [place], [place] [phone] Kristine Kelly MD PhD 800 [place] [phone] 05/09/2026 1:00 PM EDT Follow Up Cardiovascular Medicine at [address] [place] [address] THIRD [place], [place] [address] Mike Hilario MD [address] [place] [address] 2 [place] [phone] 07/26/2026 11:40 AM EST Office Visit [facility] Seizures at 800 [facility] 800 [place] [address] Virgie Mast MD PhD 800 [place] [phone] documented as of this encounter Visit Diagnoses Not on filedocumented in this encounter Care Teams Reed Or Wind Instrument Tuner Relationship Specialty Start Date End Date Sal Jose MD [address] [phone] PCP - General Family Medicine 10/16/23 documented as of this encounter
--- OUTSIDE RECORDS SUMMARY | 2025-06-28 11:21 | XMS_ITS | Encounter Summary ---
Author Organization [facility] Address Unknown Care Team Providers Care Ship Laborer Name Role Phone Sal Jose MD Primary Care Provider [phone] Encounter Details Date Type Department Care Team (Late st Contact Info) Description 11/27/2021 Scanned Document [place]monary Critical [place] 136 [facility] 302 [place], [place] [address] External, Provider Social History Tobacco Use Types [...] EST Office Visit Pulmonary Critical [place] 136 [facility] 302 [place] [address] Ramon Nixon MD 136 [facility] 302 [place] [phone] Ksenia Jain, 12/20/2025 1:30 PM EDT Office Visit [facility] at [address] 800 [facility] [place] [address] Ricarda Craven APRN 800 [place] [phone] 05/04/2026 1:45 PM EDT Office Visit Stroke 800 [facility] [place] [address] Kristine Kelly MD PhD 800 [facility] [place] [phone] 05/09/2026 1:00 PM EDT Follow Up Cardiovascular Medicine at 175 [facility] 175 [facility] [place] [address] Mike Hilario MD 175 [facility] 2 [place] [phone] 07/26/2026 11:40 AM EST Office Visit Epilepsy & Seizures at 800 [facility] 800 [facility] [place] [address] Virgie Mast MD PhD 800 [place] [phone] documented as of this encounter Visit Diagnoses Not on filedocumented in this encounter Care Teams Ship Laborer Relationship Specialty Start Date End Date Sal Jose MD [address] [phone] PCP - General Family Medicine 10/16/23 documented as of this encounter
--- OUTSIDE RECORDS SUMMARY | 2025-06-28 11:21 | XMS_ITS | Encounter Summary ---
Author Organization [facility] Address [address] [address] Phone Care Team Providers Care Legal Analyst Name Role Phone Sal Jose MD Primary Care Provider [phone] Encounter Details Date Type Department Care Team (Late Contact Info) Description 05/25/2024 Scanned Document [facility] - [address] [address] Nain Cat MD [address] [place] [phone] Social History Tobacco Use Types Packs/Day [...] PM EST Office Visit [place] [address] [place] [address] Ramon Nixon MD 136 [facility] 302 [place] [phone] Ksenia Jain, RT 12/20/2025 1:30 PM EDT Office Visit Epilepsy & Seizures at 800 [facility] 800 [place] [address] Ricarda Craven, A AND P MECHANIC 800 [place] [phone] 05/04/2026 1:45 PM EDT Office Visit Stroke 800 [place] [address] Kristine Kelly MD PhD 800 [place] [phone] 05/09/2026 1:00 PM EDT Follow Up Cardiovascular Medicine at 175 [facility] 175 [facility] [place] [address] Mike Hilario MD 175 [facility] 2 [place] [phone] 07/26/2026 11:40 AM EST Office Visit Epilepsy & Seizures at 800 [facility] 800 [place] [address] Virgie Mast MD PhD 800 [place] [phone] documented as of this encounter Visit Diagnoses Not on filedocumented in this encounter Additional Health Concerns Assessment Noted Time PHQ-9 Depression Total Score: 0 04/07/20 24 2:31 PM EDT documented as of this encounter Care Teams Legal Analyst Relationship Specialty Start Date End Date Sal Jose MD [facility] [address] [phone] PCP - General Family Medicine 10/16/23 documented as of this encounter
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
--- OUTSIDE RECORDS SUMMARY | 2025-06-28 11:21 | XMS_ITS | Clinical Summary ---
Author Organization [employer] Address [address] [place] [address] 7[address] [place] [address] Care Team Providers Care Services Tech Name Role Phone Cordell Saba Unavailable Unavailable [...] Pulmonary embolism 06/05/2012 Overview (07/29/2024): 1990- in [place] Primary hypertension 02/13/2012 Hypothyroidism 02/04/2012 Overview (07/29/2024): [...] Vaccine: 50+ Years (3 of 3 - PCV20 or PCV21) 04/16/2023 04/16/2018, 06/09/2015 Mammogram 09/11/2024 09/11/2022, 0203/2023, 03/02/2019, Additional history exists COVID-19 Vaccine ( season) 2025 05/13/2024, 12/06/2021, 11/03/2020, Additional history [...] to Health Maintenance Insurance 1-D Jerry Chapman. SandovalGARCIA [id number] [facility] FULL [place]IC[place] [address] [id number] HSN [place]ULL [place] [address] DENTAL - N FULL (MEDICAID) Care Teams Services Tech Relationship Specialty Start Date End Date Cordell Saba Health Navigator 08/12/24 CASSIDY DE LA FUENTE NPI ID: [id number] Address: [address] [place] [phone] Primary Care Physician [id number] Primary Care Provider 08/12/18
--- OUTSIDE RECORDS SUMMARY | 2025-06-28 11:21 | XMS_ITS | Encounter Summary ---
Author Organization [facility] Address Unknown Care Team Providers Care Rivet Heater Name Role Phone Sal Jose MD Primary Care Provider [phone] Encounter Details Date Type Department Care Team (Late st Contact Info) Description 08/13/2023 Scanned Document Pulmonary Critical [place] 136 [facility] 302 [place], [place] [address] External, Provider Social History Tobacco Use Types [...] EST Office Visit Pulmonary Critical [place] 136 [facility] 302 [place] [address] Ramon Nixon MD 136 [facility] 302 [place] [phone] Ksenia Jain, 12/20/2025 1:30 PM EDT Office Visit [facility] at [address] 800 [facility] [place] [address] Ricarda Craven APRN 800 [place] [phone] 05/04/2026 1:45 PM EDT Office Visit Stroke 800 [facility] [place] [address] Kristine Kelly MD PhD 800 [place] [phone] 05/09/2026 1:00 PM EDT Follow Up Cardiovascular Medicine at 175 [facility] 175 [facility] [place] [address] Mike Hilario MD 175 [facility] 2 [place] [phone] 07/26/2026 11:40 AM EST Office Visit Epilepsy & Seizures at 800 [facility] 800 [facility] [place] [address] Virgie Mast MD PhD 800 [place] [phone] documented as of this encounter Visit Diagnoses Not on filedocumented in this encounter Care Teams Rivet Heater Relationship Specialty Start Date End Date Sal Jose MD [address] [phone] PCP - General Family Medicine 10/16/23 documented as of this encounter
--- OUTSIDE RECORDS SUMMARY | 2025-06-28 11:21 | XMS_ITS | Encounter Summary ---
Author Organization [facility] Address Unknown Care Team Providers Care Vendor Analyst Name Role Phone Sal Jose MD Primary Care Provider [phone] Encounter Details Date Type Department Care Team (Late st Contact Info) Description 11/27/2021 Scanned Document Pulmonary Critical [place] 136 [facility] [address] [place], [place] [address] Gaviota Rivera, OT Social History Tobacco Use [...] 1:00 PM EST Office Visit Pulmonary Critical [place] 136 [facility] [address] [place], [place] [address] Ramon Nixon MD 136 [facility] [address] 302 [place] [address] Ksenia Jain, 12/20/2025 1:30 PM EDT Office Visit [facility] [address] 800 [facility] [place] [address] Ricarda Craven APRN 800 [place] [phone] 05/04/2026 1:45 PM EDT Office Visit Stroke 800 [facility] [place] [address] Kristine Kelly MD PhD 800 [facility] [place] [phone] 05/09/2026 1:00 PM EDT Follow Up Cardiovascular Medicine at 175 [facility] 175 [facility] [place] [address] Mike Hilario MD [address] [facility] 2 [place] [phone] 07/26/2026 11:40 AM EST Office Visit Epilepsy & Seizures at 800 [facility] 800 [facility] [address] Virgie Mast MD PhD 800 [facility] [place] [phone] documented as of this encounter Visit Diagnoses Not on filedocumented in this encounter Care Teams Vendor Analyst Relationship Specialty Start Date End Date Sal Jose MD [facility] [address] [phone] PCP - General Family Medicine 10/16/23 documented as of this encounter
--- OUTSIDE RECORDS SUMMARY | 2025-06-28 11:21 | XMS_ITS | Encounter Summary ---
Author Organization [facility] Address Unknown Care Team Providers Care Fabric Awning Repairer Name Role Phone Sal Jose MD Primary Care Provider [phone] Encounter Details Date Type Department Care Team (Late st Contact Info) Description 05/11/2024 Scanned Document Pulmonary Critical [place] 136 [facility] [address] [place] [address] Ramon Nixon MD 136 [facility] 302 [place] [phone] Social History Tobacco Use Types Packs/Day Years [...] EST Office Visit [place] 136 [facility] [address] [place], [place] [address] Ramon Nixon MD 136 [facility] [address] 302 [place] [address] Cristobal Ksenia Carly, RT 12/20/2025 1:30 PM EDT Office Visit Epilepsy & Seizures at [address] [address] Ricarda Craven, [place] [address] [place] [phone] 05/04/2026 1:45 PM EDT Office Visit Stroke [address] [place] [address] Kristine Kelly MD PhD [address] [place] [phone] 05/09/2026 1:00 PM EDT Follow Up Cardiovascular Medicine at [address] [place] [address] Mike Hilario MD [address] [place] [address] 2 [place] [phone] 07/26/2026 11:40 AM EST Office Visit Epilepsy & Seizures at [address] [address] Virgie Mast MD PhD [address] [place] [phone] documented as of this encounter Visit Diagnoses Not on filedocumented in this encounter Additional Health Concerns Assessment Noted Time PHQ-9 Depression Total Score: 0 04/07/20 2:31 PM EDT documented as of this encounter Care Teams Fabric Awning Repairer Relationship Specialty Start Date End Date Sal Jose MD [facility] [address] [phone] PCP - General Family Medicine 10/16/23 documented as of this encounter
--- OUTSIDE RECORDS SUMMARY | 2025-06-28 11:21 | XMS_ITS | Encounter Summary ---
Author Organization [facility] Address Unknown Care Team Providers Care Labor Relations Analyst Name Role Phone aSl Jose MD Primary Care Provider Encounter Details Date Type Department Care Team (Late st Contact Info) Description 11/19/2022 Scanned Document Pulmonary Critical [place] 136 [facility] 302 [place], [place] [address] External, Provider Social History Tobacco Use Types [...] EST Office Visit Pulmonary Critical [place] 136 [facility] 302 [place] [address] Ramon Nixon MD 136 [facility] 302 [place] [address] Ksenia Jain, 12/20/2025 1:30 PM EDT Office Visit [facility] at [address] 800 [facility] [place] [address] Ricarda Craven APRN 800 [place] [phone] 05/04/2026 1:45 PM EDT Office Visit Stroke 800 [place] [address] Kristine Kelly MD PhD 800 [place] [phone] 05/09/2026 1:00 PM EDT Follow Up Cardiovascular Medicine at 175 [facility] 175 [facility] [place] [address] Mike Hilario MD 175 [facility] 2 [place] [phone] 07/26/2026 11:40 AM EST Office Visit Epilepsy & Seizures at 800 [facility] 800 [place] [address] Virgie Mast MD PhD 800 [place] [phone] documented as of this encounter Visit Diagnoses Not on filedocumented in this encounter Care Teams Labor Relations Analyst Relationship Specialty Start Date End Date Sal Jose MD [address] [phone] PCP - General Family Medicine 10/16/23 documented as of this encounter
--- OUTSIDE RECORDS SUMMARY | 2025-06-28 11:21 | XMS_ITS | Encounter Summary ---
Author Organization [facility] Address [address] [place] [address] Care Team Providers Care Transaction Processor Name Role Phone Sal Jose MD Primary Care Provider Encounter Details Date Type Department Care Team (Late st Contact Info) Description 08/09/2014 Abstract [facility] at 175 [facility] 175 [place] [address] Emerita Beth MD 35 [place] [phone] Social History Tobacco Use Types Packs/Day Years [...] Office Visit Pulmonary Critical [place] 136 [facility] [address] [place], [place] [address] Ramon Nixon MD 136 [facility] 302 [place] [phone] Ksenia Jain, 12/20/2025 1:30 PM EDT Office Visit [facility] at 800 [facility] 800 [facility] [place] [address] Ricarda Craven, [place] 800 [place] [phone] 05/04/2026 1:45 PM EDT Office Visit Stroke 800 [facility] [address] Kristine Kelly MD PhD 800 [place] [phone] 05/09/2026 1:00 PM EDT Follow Up Cardiovascular Medicine at 175 [facility] 175 [facility] THIRD [place]OR [place], [place] [address] Mike Hilario MD 175 [facility] 2 [place] [phone] 07/26/2026 11:40 AM EST Office Visit Epilepsy & Seizures at 800 [facility] 800 [facility] [address] Virgie Mast MD PhD 800 [place] [phone] documented as of this encounter Visit Diagnoses Not on filedocumented in this encounter Care Teams Transaction Processor Relationship Specialty Start Date End Date Sal Jose MD [facility] [address] [phone] PCP - General Family Medicine 10/16/23 documented as of this encounter
--- OUTSIDE RECORDS SUMMARY | 2025-06-28 11:21 | XMS_ITS | Encounter Summary ---
Author Organization [facility] Address [address] [place] [address] Care Team Providers Care Mercantile Reporter Name Role Phone Sal Jose MD Primary Care Provider [phone] Encounter Details Date Type Department Care Team (Late st Contact Info) Description 08/31/2024 Transcribed Orders [facility] 55 [place] [address] System, Provider Not In CRST syndrome (HC [...] EST Office Visit [place]monary Critical [place] [address] [address] Ramon Nixon MD [address] [place] [phone] Soares-Ksenia Keller, RT 12/20/2025 1:30 PM EDT Office Visit Epilepsy & Seizures at [address] [place] [address], [place] [address] Ricarda Craven, [place] 800 [place] [phone] 05/04/2026 1:45 PM EDT Office Visit Stroke [address] [place] [address] Kristine Kelly MD PhD [address] [place] [address], [place] [phone] 05/09/2026 1:00 PM EDT Follow Up Cardiovascular Medicine at [address] [place] [address] 175 [facility] [place] [address] Mike Hilario MD [address] [place] [phone] 07/26/2026 11:40 AM EST Office Visit Epilepsy & Seizures at [address] [place] [address], [place] [address] Virgie Mast MD PhD [address] [place] [phone] Scheduled Orders Name Type Priority Associated Diagnoses [...] documented as of this encounter Care Teams Mercantile Reporter Relationship Specialty Start Date End Date Sal Jose MD [address] [phone] PCP - General Family Medicine 10/16/23 documented as of this encounter
--- OUTSIDE RECORDS SUMMARY | 2025-06-28 11:21 | XMS_ITS | Encounter Summary ---
Author Organization [facility] Address Unknown Care Team Providers Care Opticianry Teacher Name Role Phone Sal Jose MD Primary Care Provider [phone] Encounter Details Date Type Department Care Team (Late st Contact Info) Description 08/13/2023 Scanned Document Pulmonary Critical [place] 136 [facility] 302 [place], [place] [address] External, Provider Social History Tobacco Use Types [...] 1:00 PM EST Office Visit Pulmonary Critical [place] 136 [facility] 302 [place] [address] Ramon Nixon MD 136 [facility] 302 [place] [phone] Ksenia Jain, 12/20/2025 1:30 PM EDT Office Visit [facility] at [address] 800 [facility] [place] [address] Ricarda Craven APRN 800 [place] [phone] 05/04/2026 1:45 PM EDT Office Visit Stroke 800 [facility] [address] Kristine Kelly MD PhD 800 [place] [phone] 05/09/2026 1:00 PM EDT Follow Up Cardiovascular Medicine at 175 [facility] 175 [facility] [place] [address] Mike Hilario MD 175 [facility] 2 [place] [phone] 07/26/2026 11:40 AM EST Office Visit Epilepsy & Seizures at 800 [facility] 800 [facility] [address] Virgie Mast MD PhD 800 [place] [phone] documented as of this encounter Visit Diagnoses Not on filedocumented in this encounter Care Teams Opticianry Teacher Relationship Specialty Start Date End Date Sal Jose MD [address] [phone] PCP - General Family Medicine 10/16/23 documented as of this encounter
--- OUTSIDE RECORDS SUMMARY | 2025-06-28 11:21 | XMS_ITS | Encounter Summary ---
Author Organization [facility] Address Unknown Care Team Providers Care Bakery Assistant Name Role Phone Sal Jose MD Primary Care Provider [phone] Encounter Details Date Type Department Care Team (Late st Contact Info) Description 11/19/2022 Scanned Document Pulmonary Critical [place] 136 [facility] 302 [place], [place] [address] External, Provider Social History Tobacco Use Types [...] 1:00 PM EST Office Visit Pulmonary Critical [place] 136 [facility] 302 [place] [address] Ramon Nixon MD 136 [facility] 302 [place] [address] Ksenia Jain, 12/20/2025 1:30 PM EDT Office Visit [facility] at [address] [facility] [place] [address] Ricarda Craven APRN 800 [place] [phone] 05/04/2026 1:45 PM EDT Office Visit Stroke 800 [place] [address] Kristine Kelly MD PhD 800 [facility] [place] [phone] 05/09/2026 1:00 PM EDT Follow Up Cardiovascular Medicine at 175 [facility] 175 [facility] [place] [address] Mike Hilario MD 175 [facility] 2 [place] [phone] 07/26/2026 11:40 AM EST Office Visit Epilepsy & Seizures at [address] [facility] 800 [place] [address] Virgie Mast MD PhD 800 [place] [phone] documented as of this encounter Visit Diagnoses Not on filedocumented in this encounter Care Teams Bakery Assistant Relationship Specialty Start Date End Date Sal Jose MD [address] [phone] PCP - General Family Medicine 10/16/23 documented as of this encounter
--- OUTSIDE RECORDS SUMMARY | 2025-06-28 11:21 | XMS_ITS | Encounter Summary ---
Author Organization [facility] Address Unknown Care Team Providers Care Rn Navigator Name Role Phone Sal Jose MD Primary Care Provider [phone] Reason for Visit * Reason Comments Medication Refill Encounter Details Date Type Department Care Team (Late st Contact Info) Description 06/26/2025 Refill Pulmonary Critical [place] 136 [facility] 302 [place], [place] [phone] Ramon Nixon MD 136 [facility] 302 [place] [phone] Medication Refill Social History Tobacco Use Types Packs/Day Years [...] 1:00 PM EST Office Visit Pulmonary Critical [place] 136 [facility] 302 [place], [place] [address] Ramon Nixon MD 136 [facility] 302 [place] [phone] Mariannaa Ksenia Carroll, RT 12/20/2025 1:30 PM EDT Office Visit Epilepsy & Seizures at 800 [facility] 800 [place] [address] Ricarda Craven, [place] 800 [place] [phone] 05/04/2026 1:45 PM EDT Office Visit Stroke 800 [place], [place] [address] Kristine Kelly MD PhD 800 [place] [phone] 05/09/2026 1:00 PM EDT Follow Up Cardiovascular Medicine at 175 [facility] 175 [facility] THIRD FLOOR [place], [place] [address] Mike Hilario MD 175 [facility] 2 [place] [phone] 07/26/2026 11:40 AM EST Office Visit Epilepsy & Seizures at 800 [facility] 800 [place] [address] Virgie Mast MD PhD 800 [place] [phone] documented as of this encounter Visit Diagnoses Not on filedocumented in this encounter Additional Health Concerns Assessment Noted Time PHQ-9 Depression Total Score: 0 04/07/20 24 2:31 PM EDT documented as of this encounter Care Teams Rn Navigator Relationship Specialty Start Date End Date Sal Jose MD [facility] [address] [phone] PCP - General Family Medicine 10/16/23 documented as of this encounter
--- OUTSIDE RECORDS SUMMARY | 2025-06-28 11:21 | XMS_ITS | Encounter Summary ---
Author Organization [facility] Address Unknown Care Team Providers Care Hematology Nurse Name Role Phone Sal Jose MD Primary Care Provider [phone] Reason for Referral * General (Routine) - New Request Specialty Diagnoses / Procedures Referred By Contac t Referred To Contact Pulmonary Disease Procedures Pulmonary Function Test ([facility]) Ramon Nixon MD [address] [place] [address] 302 [place] [address] Phone: tel: fax: Referral ID Status Reason Start Date Expiration Date V isits Requested Visits Authorized [id number] New Request 08/31/2024 08/31/2025 1 1 Encounter Details Date Type Department Care Team (Late st Contact Info) Description 08/31/2024 Scanned Document Pulmonary Critical [place] 136 [facility] 302 [place], [place] [phone] Ramon Nixon MD [address] [place] [address] 302 [place] [address] Social History Tobacco Use Types [...] [facility] [address] [place] [address] Ramon Nixon MD 136 [facility] 302 [place] [address] Ksenia Jain, RT 12/20/2025 1:30 PM EDT Office Visit Epilepsy & Seizures at [address] [place] [address] Ricarda Craven, PET HOUSE SITTER 800 [place] [phone] 05/04/2026 1:45 PM EDT Office Visit Stroke 800 [place] [address] Kristine Kelly MD PhD [address] [place] [phone] 05/09/2026 1:00 PM EDT Follow Up Cardiovascular Medicine at 175 [facility] 175 [facility] [place] [address] Mike Hilario MD 175 [facility] 2 [place] [phone] 07/26/2026 11:40 AM EST Office Visit Epilepsy & Seizures at 800 [facility] 800 [place] [address] Virgie Mast MD PhD [address] [place] [address] [place] [phone] documented as of this encounter Procedures Procedure [...] documented as of this encounter Care Teams Hematology Nurse Relationship Specialty Start Date End Date Sal Jose MD [address] [place] [phone] PCP - General Family Medicine 10/16/23 documented as of this encounter
== END 2025-06-28 10:13 | disposition home or self-care (01) ==
LOC: HO.HOS 09:44
PROVIDERS: PCP Family Medicine; Visit Provider Orthopaedic Surgery
DX: S83.241A Other tear of medial meniscus, current injury, right knee, initial encounter (principal)
CPT/HCPCS: 99203; G2211

== ENCOUNTER → 2025-06-28 09:43 | Outpatient (BNVA) | payer MEDICARE, MEDICAID, SELFPAY | PROVIDERS: PCP Family Medicine; Visit Provider Orthopaedic Surgery | DX: S83.241A Other tear of medial meniscus, current injury, right knee, initial encounter (principal); X58.XXXA Exposure to other specified factors, initial encounter; Y93.9 Activity, unspecified; Y92.9 Unspecified place or not applicable; Y99.9 Unspecified external cause status | CPT/HCPCS: 99202 ==

== ENCOUNTER 2025-07-04 10:46 | Outpatient (AMB) | payer MEDICARE, MEDICAID, SELFPAY ==
--- NOTE | 2025-07-04 11:09 | A.OFFVIS_ITS ---
Vital Signs 07/04/25 11:11 Height 5 ft 8 in Weight 232 lb BMI 35.3 BP 126/74 Intake Visit Reasons: Ultrasound results / pre op for leep Grades 1 Thru 5 Teacher Required: No Information Interpreted: non-clinical & clinical Accompanied by: Self / Same As Patient Allergies Penicillins Allergy (Severe, Verified 07/04/25 11:12) Anaphylaxis morphine Adverse Reaction (Severe, Verified 07/04/25 11:12) Confusion Post menopausal: Yes HPI Comments Details: Presenting post EMB/colpo for follow-up. The patient is doing well with no complaints. Pap smear showed the following: ABNORMAL PAP TEST. Satisfactory for evaluation, with atypical squamous cells of undetermined significance (ASC-US). HPV High Risk: Negative HPV Genotyping 16: Positive HPV Genotyping 18: Negative Pelvic ultrasound done in 06/27 showed the following: IMPRESSION: * Postmenopausal patient. Endometrial stripe measures 1 mm in thickness. * Possible small calcification adjacent to the endometrium * Bilateral ovaries not visualized * Dilated vessels in the pelvis, question pelvic congestion syndrome The pathology showed the following: A. Endometrium, biopsy: Superficial fragments of atrophic endometrium and focal endocervical epithelium; no atypia identified. B. Endocervix, curettage: - Low-grade squamous intraepithelial lesion (JEN 1). - Rare endocervical epithelium within normal limits. C. Cervix, 12 o'clock, biopsy: - High-grade squamous intraepithelial lesion (JEN 2-3). - No endocervical epithelium identified [facility] Medical History Nonalcoholic fatty liver Migraine Hyperlipidemia CREST syndrome Chronic kidney disease Hypertension Pulmonary emboli Middle cerebral artery aneurysm Subclavian steal syndrome of right subclavian artery Chronic ischemic right MCA stroke Stroke Lung disease Surgical History S/P IVC filter H/O brain surgery Family History Maternal Grandmother FH: mental illness Brother FH: mental illness Sister FH: mental illness Father FH: mental illness Social History Housing: Apartment Alcohol intake: never Patient Tobacco Use Status: Never used Tobacco e-Cigarette/Vaping Use: Never Used Second Hand Smoke Exposure: No Substance Use Type: Other service: No Current occupational status: retired Current occupational exposures/hazards: No Cognitive needs: Yes (aphasia ) Hearing needs: No Vision needs: Yes Review of Systems Const All systems reviewed & are unremarkable except as noted in HPI and below Reports as per HPI and Reports no additional complaints GI Reports no additional complaints Reports no additional complaints Physical Exam Vital Signs: Last Vital Signs BP 126/74 07/04/25 11:11 BMI result Body Mass Index 35.3 Assessment & Plan Assessment & Plan (1) Postmenopausal bleeding: Comment: Endometrial thickness 1 mm Recurrent vaginal bleeding Code(s): N95.0 - Postmenopausal bleeding Category: Medical Plan: Discussed with the patient the results of the endometrial biopsy. Discussed with the patient the sensitivity, specificity, positive and negative predictive value, of endometrial biopsy in detecting endometrial pathology including but not limited to endometrial hyperplasia, cancer and other pathology; instructed the patient to call in case vaginal bleeding recurs, the next step will be to proceed with a diagnostic hysteroscopy/D&C for further endometrial sampling evaluation to rule out endometrial pathology. All questions answered and the patient verbalized understanding and agreed with the plan. (2) JEN III (cervical intraepithelial neoplasia grade III) with severe dysplasia: Code(s): D06.9 - Carcinoma in situ of cervix, unspecified Category: Medical Plan: Discussed with the patient the pathology results of the colposcopy biopsies & endocervical curettage ( severe dysplasia-CIN2- 3). Discussed with the patient the sensitivity specificity, positive and negative predictive value in detecting cervical cancer in addition discussed the regression, persistence and progression rates. In addition, discussed with the patient the risk of progression to cancer and impact of excision procedure on her future . Recommended excisional procedures, LEEP possible cone with post cone ECC. Given the patient complex medical history with a history of brain surgery, PE and IVC filter, chronic ischemic MCA stroke and others will refer to a tertiary care center practice, [facility] where more resources are available. Plan referral Orders: Orders MM tomosynthesis screening BI Today Z12.31 - Encounter for screening mammogram for malignant neoplasm of breast Coding Level of Care Code Est Pt Level 3 (21847) Diagnoses Postmenopausal bleeding N95.0 JEN III (cervical intraepithelial neoplasia grade III) with severe dysplasia D06.9
[2025-07-04 11:11] VITALS: BP 126/74; BMI 35.3
--- OUTSIDE RECORDS SUMMARY | 2025-07-04 13:48 | XMS_ITS | Encounter Summary ---
Author Organization [facility] Address [address] [place] [address] Care Team Providers Care Stone Setter Metal Optical Frames Name Role Phone Sal Jose MD Primary Care Provider Encounter Details Date Type Department Care Team (Late st Contact Info) Description 08/13/2023 Scanned Document EXTERNAL REFERRAL SOURCE [address] [place] [address] External, Provider Social History Tobacco Use Types [...] Office Visit Pulmonary Critical [place] 136 [facility] 302 [place] [address] Ramon Nixon MD [address] [place] [address] 302 [place] [address] Ksenia Jain RT 12/20/2025 1:30 PM EDT Office Visit [facility] at 800 [facility] 800 [facility] [place] [address] Ricarda Craven APRN 800 [place] [phone] 05/04/2026 1:45 PM EDT Office Visit Stroke 800 [facility] [address] Kristine Kelly MD PhD 800 [place] [phone] 05/09/2026 1:00 PM EDT Follow Up Cardiovascular Medicine at 175 [facility] 175 [facility] [place] [address] Mike Hilario MD 175 [facility] 2 [place] [phone] 07/26/2026 11:40 AM EST Office Visit Epilepsy & Seizures at 800 [facility] 800 [facility] [address] Virgie Mast MD PhD 800 [place] [phone] documented as of this encounter Visit Diagnoses Not on filedocumented in this encounter Care Teams Stone Setter Metal Optical Frames Relationship Specialty Start Date End Date Sal Jose MD [address] [phone] PCP - General Family Medicine 10/16/23 documented as of this encounter
--- OUTSIDE RECORDS SUMMARY | 2025-07-04 13:49 | XMS_ITS | Encounter Summary ---
Author Organization [facility] Address Unknown Care Team Providers Care Laborer Syrup Machine Name Role Phone Sal Jose MD Primary Care Provider [phone] Encounter Details Date Type Department Care Team (Late st Contact Info) Description 05/11/2024 Scanned Document Pulmonary Critical [place] 136 [facility] [address] [place] [address] Ramon Nixon MD 136 [facility] 302 [place] [phone] Social History Tobacco Use Types Packs/Day Years [...] [place] 136 [facility] [address] [place], [place] [address] Ramon Nixon MD 136 [facility] 302 [place] [address] Cristobal Ksenia [place], RT 12/20/2025 1:30 PM EDT Office Visit Epilepsy & Seizures at [address] [address] Ricarda Craven, [place] [address] [place] [phone] 05/04/2026 1:45 PM EDT Office Visit Stroke [address] [place] [address] Kristine Kelly MD PhD [address] [place] [phone] 05/09/2026 1:00 PM EDT Follow Up Cardiovascular Medicine at [address] [place] [address] Mike Hilario MD [address] [place] [address] 2 [place] [phone] 07/26/2026 11:40 AM EST Office Visit Epilepsy & Seizures at [address] [address] Virgie Mast MD PhD [address] [place] [phone] documented as of this encounter Visit Diagnoses Not on filedocumented in this encounter Additional Health Concerns Assessment Noted Time PHQ-9 Depression Total Score: 0 04/07/20 2:31 PM EDT documented as of this encounter Care Teams Laborer Syrup Machine Relationship Specialty Start Date End Date Sal Jose MD [facility] [address] [phone] PCP - General Family Medicine 10/16/23 documented as of this encounter
--- OUTSIDE RECORDS SUMMARY | 2025-07-04 13:49 | XMS_ITS | Encounter Summary ---
Author Organization [facility] Address Unknown Care Team Providers Care Nursing Manager Name Role Phone Sal Jose MD Primary Care Provider [phone] Encounter Details Date Type Department Care Team (Late st Contact Info) Description 08/13/2023 Scanned Document Pulmonary Critical [place] 136 [facility] 302 [place], [place] [phone] External, Provider Social History Tobacco Use Types [...] 1:00 PM EST Office Visit Pulmonary Critical [place] 136 [facility] 302 [place] [address] Ramon Nixon MD 136 [facility] 302 [place] [phone] Ksenia Jain, 12/20/2025 1:30 PM EDT Office Visit [facility] Ep[facility] Seizures at [address] 800 [facility] [place] [address] Ricarda Craven APRN 800 [place] [phone] 05/04/2026 1:45 PM EDT Office Visit Stroke 800 [place] [address] Kristine Kelly MD PhD 800 [place] [phone] 05/09/2026 1:00 PM EDT Follow Up Cardiovascular Medicine at 175 [facility] 175 [facility] [place] [address] Mike Hilario MD 175 [facility] 2 [place] [phone] 07/26/2026 11:40 AM EST Office Visit Epilepsy & Seizures at 800 [facility] 800 [place] [address] Virgie Mast MD PhD 800 [place] [phone] documented as of this encounter Visit Diagnoses Not on filedocumented in this encounter Care Teams Nursing Manager Relationship Specialty Start Date End Date Sal Jose MD [address] [phone] PCP - General Family Medicine 10/16/23 documented as of this encounter
--- OUTSIDE RECORDS SUMMARY | 2025-07-04 13:49 | XMS_ITS | Encounter Summary ---
Author Organization [facility] Address [address] [place] [address] Care Team Providers Care Director Online Marketing Name Role Phone Sal Jose MD Primary Care Provider [phone] Encounter Details Date Type Department Care Team (Late st Contact Info) Description 10/28/2023 Scanned Document [facility] Neurosurgery at 800 [facility] 800 [facility] [place] [address] Joao Loredo MD 800 [place] [phone] Social History Tobacco Use Types Packs/Day Years [...] EST Office Visit Pulmonary Critical [place] 136 [facility] [address] [place], [place] [phone] Ramon Nixon MD 136 [facility] 302 [place] [address] Ksenia Jain, 12/20/2025 1:30 PM EDT Office Visit Epilepsy & Seizures at 800 [facility] 800 [facility] [place] [address] Ricarda Craven, [place] 800 [facility] [place] [phone] 05/04/2026 1:45 PM EDT Office Visit Stroke 800 [facility], [place] [address] Kristine Kelly MD PhD 800 [facility] [phone] 05/09/2026 1:00 PM EDT Follow Up Cardiovascular Medicine at 175 [facility] 175 [facility] [place] [address] Mike Hilario MD [address] [place] [address] 2 [place] [phone] 07/26/2026 11:40 AM EST Office Visit Epilepsy & Seizures at 800 [facility] 800 [facility] [place] [address] Virgie Mast MD PhD 800 [place] [phone] documented as of this encounter Procedures Procedure [...] CT Result Scan (02/06/2022 11:32 AM EDT) [facility] Provider IMG SCAN REPORTS Final Resul t * CT Result Scan (02/06/2022 11:26 AM EDT) [facility] Provider IMG SCAN REPORTS Final Resul t documented in this encounter Visit Diagnoses Not on filedocumented in this encounter Care Teams Director Online Marketing Relationship Specialty Start Date End Date Sal Jose MD [facility] [address] [place] [phone] PCP - General Family Medicine 10/16/23 documented as of this encounter
--- OUTSIDE RECORDS SUMMARY | 2025-07-04 13:49 | XMS_ITS | Encounter Summary ---
Author Organization [facility] Address [address] [place] [address] Care Team Providers Care Electric Engine Mechanic Name Role Phone Sal Jose MD Primary Care Provider Encounter Details Date Type Department Care Team (Late st Contact Info) Description 10/28/2023 Scanned Document [facility] Neuro[facility] at 800 [facility] 800 [facility] [place] [address] Joao Loredo MD 800 [place] [phone] Social History Tobacco Use Types Packs/Day Years [...] [facility] [address] [place], [place] [phone] Ramon Nixon MD 136 [facility] 302 [place] [address] Ksenia Jain, 12/20/2025 1:30 PM EDT Office Visit [facility] Epilepsy & Seizures at 800 [facility] 800 [facility] [address] Ricarda Craven, [place] 800 [place] [phone] 05/04/2026 1:45 PM EDT Office Visit Stroke 800 [facility], [place] [address] Kristine Kelly MD PhD 800 [place] [phone] 05/09/2026 1:00 PM EDT Follow Up Cardiovascular Medicine at 175 [facility] 175 [facility] [place] [address] Mike Hilario MD [address] [place] [address] 2 [place] [phone] 07/26/2026 11:40 AM EST Office Visit [facility] Epilepsy & Seizures at 800 [facility] 800 [facility] [address] Virgie Mast MD PhD 800 [place] [phone] documented as of this encounter Procedures Procedure [...] CT Result Scan (07/21/2023 1:08 PM EST) [facility] Provider IMG SCAN REPORTS Final Resul t * CT Result Scan (05/17/2021 11:42 AM EDT) Historical Provider IMG SCAN REPORTS Final Resul t * MRI Result Scan (05/12/2020 11:48 AM EDT) Result [facility] Provider IMG SCAN REPORTS Final Resul t * MRI Result Scan (04/12/2020 12:01 PM EDT) Result [facility] Provider IMG SCAN REPORTS Final Resul t * MRI Result Scan (04/12/2020 11:55 AM EDT) Historical Provider IMG SCAN REPORTS Final Resul t * MRI Result Scan (04/08/2020 12:04 PM EDT) Historical Provider IMG SCAN REPORTS Final Resul t * CT Result Scan (02/25/2020 12:11 PM EDT) [facility] Provider IMG SCAN REPORTS Final Resul t * MRI Result Scan (02/01/2020 12:16 PM EDT) Historical Provider IMG SCAN REPORTS Final Resul t * CT Result Scan (12/25/2018 12:21 PM EDT) Result [facility] Provider IMG SCAN REPORTS Final Resul t * CT Result Scan (08/25/2015 12:26 PM EST) Result [facility] Provider IMG SCAN REPORTS Final Resul t * CT Result Scan (09/28/2012 12:30 PM EST) Result [facility] Provider IMG SCAN REPORTS Final Resul t * CT Result Scan (09/07/2012 12:34 PM EST) Result [facility] Provider IMG SCAN REPORTS Final Resul t * CT Result Scan (02/13/2012 12:38 PM EDT) Result [facility] Provider IMG SCAN REPORTS Final Resul t * CT Result Scan (12/17/2010 1:03 PM EDT) Result [facility] Provider IMG SCAN REPORTS Final Resul t * CT Result Scan (12/17/2010 1:00 PM EDT) Result [facility] Provider IMG SCAN REPORTS Final Resul t * CT Result Scan (12/17/2010 12:56 PM EDT) Result [facility] Provider IMG SCAN REPORTS Final Resul t * CT Result Scan (12/17/2010 12:52 PM EDT) Result [facility] Provider IMG SCAN REPORTS Final Resul t * CT Result Scan (12/17/2010 12:46 PM EDT) Result [facility] Provider IMG SCAN REPORTS Final Resul t * CT Result Scan (12/17/2010 12:41 PM EDT) Result [facility] Provider IMG SCAN REPORTS Final Resul t documented in this encounter Visit Diagnoses Not on filedocumented in this encounter Care Teams Electric Engine Mechanic Relationship Specialty Start Date End Date Sal Jose MD [address] [phone] PCP - General Family Medicine 10/16/23 documented as of this encounter
--- OUTSIDE RECORDS SUMMARY | 2025-07-04 13:49 | XMS_ITS | Clinical Summary ---
Author Organization [facility] Address 20 [place] [address] Phone Care Team Providers Care Smog Technician Name Role Phone Sal Jose MD Primary Care Provider [phone] Allergies Active Allergy Reactions Criticality Noted Date [...] Description 06/26/2025 Refill Pulmonary Critical [place] 136 [facility] [address] [place] [address] Ramon Nixon MD Medication Refill 06/22/2025 2:00 PM EST Office Visit Epilepsy & Seizures at [address] 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 175 [facility] [place] [address] Mike Hilario MD NSVT (nonsustained ventricular tachycardia) (HC Code) (HC CODE) (Primary Dx); Chronic ischemic right MCA stroke; Aneurysm of middle cerebral artery; Scleroderma (HC CODE); ILD (interstitial lung disease) (HC Code) (HC CODE); History of pulmonary embolism 04/28/2025 1:45 PM EDT Office Visit Stroke 800 [place] [address] Kristine Kelly MD PhD Chronic ischemic right [...] EST Office Visit [place]monary Critical [place] [address] [address] Ramon Nixon MD 136 [facility] 302 [place] [phone] Cristobal Ksenia [place], RT 12/20/2025 1:30 PM EDT Office Visit Epilepsy & Seizures at [address] [facility] 800 [facility] [place] [address] Ricarda Craven, ANIMAL HUSBANDRY MANAGER 800 [place] [phone] 05/04/2026 1:45 PM EDT Office Visit Stroke 800 [facility] [place] [address] Kristine Kelly MD PhD 800 [place] [phone] 05/09/2026 1:00 PM EDT Follow Up Cardiovascular Medicine at 175 [facility] 175 [facility] [place] [address] Mike Hilario MD 175 [facility] 2 [place] [phone] 07/26/2026 11:40 AM EST Office Visit Epilepsy & Seizures at [address] [facility] 800 [facility] [place] [address] Virgie Mast MD PhD 800 [place] [phone] Health Maintenance Due Date Last Done Comments [...] QTC Interval 446 ms SRC EKG P [place] 65 deg SRC EKG QRS [place] 25 deg SRC EKG T Wave [place] 41 deg SRC EKG P-R Interval 162 [...] - 144 mmol/L 07/23/2024 3:09 PM [facility] DEPARTMENT OF LABORATORY MEDICINE Potassium 4.2 3.3 - 5.3 mmol/L 07/23/2024 3:09 PM [facility] DEPARTMENT OF LABORATORY MEDICINE Chloride 105 98 - 107 mmol/L 07/23/2024 3:09 PM [facility] OF LABORATORY MEDICINE CO2 26 20 - 30 mmol/L 07/23/2024 3:09 PM [facility] OF LABORATORY MEDICINE Anion Gap 13 7 - 17 07/23/2024 3:09 PM [facility] OF LABORATORY MEDICINE Glucose 89 70 - 100 mg/dL 07/23/2024 3:09 PM [facility]PARTMENT OF LABORATORY MEDICINE BUN 13 8 - 23 mg/dL 07/23/2024 3:09 PM [facility] OF LABORATORY MEDICINE Creatinine 0.72 0.40 - 1.30 mg/dL 07/23/2024 3:09 PM [facility] DEPARTMENT OF LABORATORY MEDICINE Calcium 9.7 8.8 - 10.2 mg/dL 07/23/2024 3:09 PM [facility] DEPARTMENT OF LABORATORY MEDICINE BUN/Creatinine Ratio 18.1 8.0 - 23.0 07/23/2024 3:09 PM [facility] OF LABORATORY MEDICINE Total Protein 6.7 5.9 - 8.3 g/dL 024 3:09 PM [facility] OF LABORATORY MEDICINE Comment:As of 2023, e reference interval for Total Protein has been changed from (6.6 to 8.7 g/dL) to (5.9 to 8.3 g/dL). Albumin 4.3 3.6 - 5.1 g/dL 07/23/2024 3:09 PM [facility] DE[facility] OF LABORATORY MEDICINE Comment:As of 2023, th e reference interval for Albumin has been changed from (3.6 to 4.9 g/dL) to (3.6 to 5.1 g/dL). Total Bilirubin 0.6 <=1.2 mg/dL 07/23/20 24 3:09 PM [facility] DE[facility] OF LABORATORY MEDICINE Alkaline Phosphatase 113 9 - 122 U/L 07/23/2024 3:09 PM [facility] OF LABORATORY MEDICINE Alanine Aminotransferase (ALT) 27 10 - 35 U/L 07/23/2024 3:09 PM [facility] OF LABORATORY MEDICINE Comment:Calcium dobesilate c an cause artificially low ALT results at therapeutic concentrations Aspartate Aminotransferase (AST) 23 10 - 35 U/L 07/23/2024 3:09 PM [facility] DEPART[facility] OF LABORATORY MEDICINE Globulin 2.4 2.0 - 3.9 g/dL 07/23/2024 3:09 PM [facility] DEPART[facility] OF LABORATORY MEDICINE Comment:As of 2023, e reference interval for Globulin has been changed from (2.3 to 3.5 g/dL) to (2.0 to 3.9 g/dL). A/G Ratio 1.8 1.0 - 2.2 07/23/2024 3:09 PM [facility] DEPARTMENT OF LABORATORY MEDICINE AST/ALT Ratio 0.9 Reference Range Not Established 07/23/2024 3:09 PM [facility] DEPARTMENT OF LABORATORY MEDICINE eGFR (Creatinine) >60 >=60 mL/min/1.73m2 07/23/2024 3:09 PM [facility] DEPARTMENT OF LABORATORY MEDICINE Comment: [facility] utilizes CKD-EPI Creatinine 2020 to report eGFR. Values < 60 mL/min/1.73 m2 may indicate CKD if present for more than three months AND creatinine is at steady state. The eGFR provides a rough estimate of kidney function. For further guidance, please refer to the CKD: Adult Air Carrier Operations Inspector Signature pathway. Creatinine Delta 0.01 See Comment 024 3:09 PM [facility] DEPARTMENT OF LABORATORY MEDICINE Comment: [...] ORDERABLES Evelin smith Result Performing Organization Address City/State/[facility] Co de Phone Number [facility] DEPARTMENT OF LABORATORY MEDICINE [address] [place] [address] from Last 3 Months or Most Recently Relevant to Health Maintenance Insurance 1-D [facility] GARCIA DAVIS [address] [id number] MEDICAID [place] [address] [id number] MEDICAID [place]IC[place] [address] [address] [facility] [place] [address] [id number] MEDICAID MEDICARE [facility] Care Teams Smog Technician Relationship Specialty Start Date End Date Sal Jose MD [address] [place] [address] PCP - General Family Medicine 10/16/23
--- OUTSIDE RECORDS SUMMARY | 2025-07-04 13:49 | XMS_ITS | Encounter Summary ---
Author Organization [facility] Address Unknown Care Team Providers Care Synthetic Soil Blocks Pulper Name Role Phone Sal Jose MD Primary Care Provider [phone] Encounter Details Date Type Department Care Team (Late st Contact Info) Description 08/27/2023 Scanned Document Pulmonary Critical [place] 136 [facility] 302 [place], [place] [address] External, Provider Social History Tobacco Use Types [...] 1:00 PM EST Office Visit Pulmonary Critical [place] 136 [facility] 302 [place] [address] Ramon Nixon MD 136 [facility] 302 [place] [phone] Ksenia Jain, 12/20/2025 1:30 PM EDT Office Visit [facility] Ep[facility]iz[facility] at [address] 800 [facility] [place] [address] Ricarda Craven APRN 800 [place] [phone] 05/04/2026 1:45 PM EDT Office Visit Stroke 800 [facility] [place] [address] Kristine Kelly MD PhD 800 [facility] [place] [phone] 05/09/2026 1:00 PM EDT Follow Up Cardiovascular Medicine at 175 [facility] 175 [facility] [place] [address] Mike Hilario MD 175 [facility] [address] 2 [place] [address] 07/26/2026 11:40 AM EST Office Visit Epilepsy & Seizures at 800 [facility] 800 [facility] [place] [address] Virgie Mast MD PhD 800 [facility] [place] [phone] documented as of this encounter Procedures Procedure Name Priority Date/Time Associated Diagnosis Comments CARDIAC ECHO RESULT SCAN Routine 08/27/2023 documented in this encounter Results * Cardiac Echo Result Scan (08/27/2023) us Provider External CV CARDIAC REPORT (CVR) Final Result documented in this encounter Visit Diagnoses Not on filedocumented in this encounter Care Teams Synthetic Soil Blocks Pulper Relationship Specialty Start Date End Date Sal Jose MD [facility] [address] [phone] PCP - General Family Medicine 10/16/23 documented as of this encounter
--- OUTSIDE RECORDS SUMMARY | 2025-07-04 13:49 | XMS_ITS | Encounter Summary ---
Author Organization [facility] [employer] [facility] Address 20 [place] [address] Care Team Providers Care Compliance Nurse Name Role Phone Sal Jose MD Primary Care Provider [phone] Encounter Details Date Type Department Care Team (Late st Contact Info) Description 08/14/2023 Transcribed Orders EXTERNAL REFERRAL SOURCE [address] [place] [address] Referral, Self Social History Tobacco Use Types [...] EST Office Visit [place]monary Critical [place] 136 [facility] 302 [place] [address] Ramon Nixon MD [address] [place] [address] 302 [place] [address] Ksenia Jain RT 12/20/2025 1:30 PM EDT Office Visit [facility] Ep[facility] Seizures at 800 [facility] 800 [facility] [place] [address] Ricarda Craven APRN 800 [place] [phone] 05/04/2026 1:45 PM EDT Office Visit Stroke 800 [place] [address] Kristine Kelly MD PhD 800 [place] [phone] 05/09/2026 1:00 PM EDT Follow Up Cardiovascular Medicine at 175 [facility] 175 [facility] [place] [address] Mike Hilario MD 175 [facility] 2 [place] [phone] 07/26/2026 11:40 AM EST Office Visit Epilepsy & Seizures at 800 [facility] 800 [place] [address] Virgie Mast MD PhD 800 [place] [phone] documented as of this encounter Visit Diagnoses Not on filedocumented in this encounter Care Teams Compliance Nurse Relationship Specialty Start Date End Date Sal Jose MD [address] [phone] PCP - General Family Medicine 10/16/23 documented as of this encounter
--- OUTSIDE RECORDS SUMMARY | 2025-07-04 13:49 | XMS_ITS | Encounter Summary ---
Author Organization [facility] Address [address] [place] [phone] Care Team Providers Care Receiver Stocker Name Role Phone Sal Jose MD Primary Care Provider [phone] Encounter Details Date Type Department Care Team (Late st Contact Info) Description 10/17/2023 Scanned Document [facility] Stroke 800 [place] [address] Kristine Kelly MD PhD 800 [place] [phone] Social History Tobacco Use Types Packs/Day Years [...] EST Office Visit Pulmonary Critical [place] 136 [facility] [address] [place], [place] [address] Ramon Nixon MD 136 [facility] 302 [place] [phone] Ksenia Jain, 12/20/2025 1:30 PM EDT Office Visit [facility] Epilepsy [facility] Seizures at 800 [facility] 800 [place] [address] Ricarda Craven APRN 800 [place] [phone] 05/04/2026 1:45 PM EDT Office Visit Stroke 800 [place], [place] [address] Kristine Kelly MD PhD 800 [place] [phone] 05/09/2026 1:00 PM EDT Follow Up Cardiovascular Medicine at 175 [facility] 175 [facility] THIRD [place], [place] [address] Mike Hilario MD [address] [place] [phone] 07/26/2026 11:40 AM EST Office Visit Epilepsy & Seizures at 800 [facility] 800 [place] [address] Virgie Mast MD PhD 800 [place] [phone] documented as of this encounter Visit Diagnoses Not on filedocumented in this encounter Care Teams Receiver Stocker Relationship Specialty Start Date End Date Sal Jose MD [facility] [address] [place] [phone] PCP - General Family Medicine 10/16/23 documented as of this encounter
--- OUTSIDE RECORDS SUMMARY | 2025-07-04 13:49 | XMS_ITS | Encounter Summary ---
Author Organization [facility] and [facility] Address [address] [place] [address] Care Team Providers Care Piping Blocker Name Role Phone Sal Jose MD Primary Care Provider [phone] Encounter Details Date Type Department Care Team (Late st Contact Info) Description 08/31/2024 Transcribed Orders [facility] Laboratory Specimens [address] [place] [address] System, Provider Not In CRST syndrome (HC [...] EST Office Visit Pulmonary Critical [place] [address] [address] Ramon Nixon MD [address] [place] [phone] Soares-Ksenia Keller, RT 12/20/2025 1:30 PM EDT Office Visit Epilepsy & Seizures at [address] [place] [address], [place] [address] Ricarda Craven, [place] 800 [place] [phone] 05/04/2026 1:45 PM EDT Office Visit Stroke [address] [place] [address] Kristine Kelly MD PhD [address] [place] [address], [place] [phone] 05/09/2026 1:00 PM EDT Follow Up Cardiovascular Medicine at [address] [place] [address] 175 [facility] [place] [address] Mike Hilario MD [address] [place] [phone] 07/26/2026 11:40 AM EST Office Visit Epilepsy & Seizures at [address] [place] [address], [place] [address] Virgie Mast MD PhD [address] [place] [phone] Scheduled Orders Name Type Priority Associated Diagnoses [...] documented as of this encounter Care Teams Piping Blocker Relationship Specialty Start Date End Date Sal Jose MD [address] [phone] PCP - General Family Medicine 10/16/23 documented as of this encounter
--- OUTSIDE RECORDS SUMMARY | 2025-07-04 13:49 | XMS_ITS | Encounter Summary ---
Author Organization [facility] and [facility] Address [address] [place] [phone] Care Team Providers Care Jtac Name Role Phone Sal Jose MD Primary Care Provider [phone] Encounter Details Date Type Department Care Team (Late st Contact Info) Description 07/21/2024 Transcribed Orders [facility] Laboratory Specimens 55 [place] [address] System, Provider Not In CRST syndrome (HC [...] EST Office Visit [place] [address] [address] Ramon Nixon MD [address] [place] [address] Ksenia Jain, RT 12/20/2025 1:30 PM EDT Office Visit Epilepsy & Seizures at [address] [place] [address] [address] [place] [address] Ricarda Craven, [place] [address] [place] [phone] 05/04/2026 1:45 PM EDT Office Visit Stroke [address] [place] [address] Kristine Kelly MD PhD [address] [place] [phone] 05/09/2026 1:00 PM EDT Follow Up Cardiovascular Medicine at [address] [place] [address] 175 [facility] THIRD [place]LO[place], [place] [address] Mike Hilario MD [address] [place] [phone] 07/26/2026 11:40 AM EST Office Visit Epilepsy & Seizures at [address] [place] [address] Virgie Mast MD PhD [address] [place] [phone] documented as of this encounter Results * Sedimentation rate (ESR) (07/23/2024 1:13 PM EST) Pathologist [facility] Sedimentation Rate (ESR) 12 0 - 20 mm/hr 07/23/2024 2:55 PM EST [facility] DEPARTMENT OF LABORATORY MEDICINE Blood Venipuncture / Unknown 07/23/2024 1:13 PM EST 07/23/2024 2:24 PM EST us Provider Not In System LAB BLOOD ORDERABLES Evelin smith Result [facility] DEPARTMENT OF LABORATORY MEDICINE [address] [place] [address] documented in this encounter 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
--- OUTSIDE RECORDS SUMMARY | 2025-07-04 13:49 | XMS_ITS | Encounter Summary ---
Author Organization [facility] and [facility] Address [address] [place] [address] Care Team Providers Care Solar Thermal Installer Name Role Phone Sal Jose MD Primary Care Provider [phone] Encounter Details Date Type Department Care Team (Late st Contact Info) Description 10/27/2023 Scanned Document CARE CENTER SCHEDULING 25 [place], [place] [address] Provider, Historical . [phone] (Fax) Social History Tobacco Use Types Packs/Day [...] [place] 136 [facility] [address] [place], [place] [address] Ramon Nixon MD [address] [place] [address] 302 [place] [phone] Ksenia Jain, 12/20/2025 1:30 PM EDT Office Visit Epilepsy & Seizures at [address] 800 [facility] Lower [place] [address] Ricarda Craven, [place] 800 [place] [phone] 05/04/2026 1:45 PM EDT Office Visit [facility] Stroke 800 [place] [address] Kristine Kelly MD PhD 800 [place] [phone] 05/09/2026 1:00 PM EDT Follow Up Cardiovascular Medicine at 175 [facility] 175 [facility] THIRD FLOOR [place], [place] 24[address] Mike Hilario MD 175 [facility] 2 [place] [phone] 07/26/2026 11:40 AM EST Office Visit Epilepsy & Seizures at 800 [facility] 800 [place] [address] Virgie Mast MD PhD 800 [place] [phone] documented as of this encounter Visit Diagnoses Not on filedocumented in this encounter Care Teams Solar Thermal Installer Relationship Specialty Start Date End Date Sal Jose MD [address] [phone] PCP - General Family Medicine 10/16/23 documented as of this encounter
--- OUTSIDE RECORDS SUMMARY | 2025-07-04 13:49 | XMS_ITS | Encounter Summary ---
Author Organization [facility] Address Unknown Care Team Providers Care Service Or Work Dispatcher Name Role Phone Sal Jose MD Primary Care Provider [phone] Encounter Details Date Type Department Care Team (Late st Contact Info) Description 11/19/2022 Scanned Document Pulmonary Critical [place] 136 [facility] 302 [place], [place] [address] External, Provider Social History Tobacco Use Types [...] 1:00 PM EST Office Visit Pulmonary Critical [place] 136 [facility] 302 [place] [address] Ramon Nixon MD 136 [facility] 302 [place] [phone] Ksenia Jain, 12/20/2025 1:30 PM EDT Office Visit [facility] Epilepsy & Seizures at [address] 800 [facility] [place] [address] Ricarda Craven APRN 800 [place] [phone] 05/04/2026 1:45 PM EDT Office Visit Stroke 800 [place] [address] Kristine Kelly MD PhD 800 [place] [phone] 05/09/2026 1:00 PM EDT Follow Up Cardiovascular Medicine at 175 [facility] 175 [facility] [place] [address] Mike Hilario MD 175 [facility] 2 [place] [phone] 07/26/2026 11:40 AM EST Office Visit Epilepsy & Seizures at 800 [facility] 800 [place] [address] Virgie Mast MD PhD 800 [place] [phone] documented as of this encounter Visit Diagnoses Not on filedocumented in this encounter Care Teams Service Or Work Dispatcher Relationship Specialty Start Date End Date Sal Jose MD [address] [phone] PCP - General Family Medicine 10/16/23 documented as of this encounter
--- OUTSIDE RECORDS SUMMARY | 2025-07-04 13:49 | XMS_ITS | Encounter Summary ---
Author Organization [facility] and [facility] Address [address] [place] [address] Care Team Providers Care Cable Installation Technician Name Role Phone Sal Jose MD Primary Care Provider [phone] Encounter Details Date Type Department Care Team (Late st Contact Info) Description 10/28/2023 Scanned Document CARE CENTER SCHEDULING 25 [place], [place] [address] Provider, Historical . [phone] (Fax) Social History Tobacco Use Types Packs/Day [...] EST Office Visit Pulmonary Critical [place] 136 [facility] [address] [place], [place] [address] Ramon Nixon MD [address] [place] [address] 302 [place] [phone] Ksenia Jain, 12/20/2025 1:30 PM EDT Office Visit Epilepsy & Seizures at [address] 800 [facility] Lower [place], [place] [address] Ricarda Craven, [place] 800 [facility] [place] [phone] 05/04/2026 1:45 PM EDT Office Visit Stroke 800 [facility] [address] Kristine Kelly MD PhD 800 [place] [phone] 05/09/2026 1:00 PM EDT Follow Up Cardiovascular Medicine at 175 [facility] 175 [facility] [place] [address] Mike Hilario MD 175 [facility] 2 [place] [phone] 07/26/2026 11:40 AM EST Office Visit Epilepsy & Seizures at 800 [facility] 800 [facility] [place] [address] Virgie Mast MD PhD 800 [place] [phone] documented as of this encounter Procedures Procedure [...] on filedocumented in this encounter Care Teams Cable Installation Technician Relationship Specialty Start Date End Date Sal Jose MD [address] [phone] PCP - General Family Medicine 10/16/23 documented as of this encounter
--- OUTSIDE RECORDS SUMMARY | 2025-07-04 13:49 | XMS_ITS | Encounter Summary ---
Author Organization [facility] Address Unknown Care Team Providers Care Diploma Dental Assistant Name Role Phone Sal Jose MD Primary Care Provider [phone] Encounter Details Date Type Department Care Team (Late st Contact Info) Description 11/19/2022 Scanned Document Pulmonary Critical [place] 136 [facility] 302 [place], [place] [address] External, Provider Social History Tobacco Use Types [...] EST Office Visit Pulmonary Critical [place] 136 [facility] 302 [place] [address] Ramon Nixon MD 136 [facility] 302 [place] [phone] Ksenia Jain, 12/20/2025 1:30 PM EDT Office Visit [facility] Epilepsy & Seizures at [address] 800 [facility]Note 3] [place] [address] Ricarda Craven APRN 800 [place] [phone] 05/04/2026 1:45 PM EDT Office Visit Stroke 800 [place] [address] Kristine Kelly MD PhD 800 [facility] [place] [phone] 05/09/2026 1:00 PM EDT Follow Up Cardiovascular Medicine at 175 [facility] 175 [facility] [place] [address] Mike Hilario MD 175 [facility] 2 [place] [phone] 07/26/2026 11:40 AM EST Office Visit Epilepsy & Seizures at 800 [facility][Note 3] 800 [place] [address] Virgie Mast MD PhD [address] [place] [phone] documented as of this encounter Visit Diagnoses Not on filedocumented in this encounter Care Teams Diploma Dental Assistant Relationship Specialty Start Date End Date Sal Jose MD [address] [phone] PCP - General Family Medicine 10/16/23 documented as of this encounter
--- OUTSIDE RECORDS SUMMARY | 2025-07-04 13:49 | XMS_ITS | Encounter Summary ---
Author Organization [facility] Address Unknown Care Team Providers Care Nursery Teacher Name Role Phone Sal Jose MD Primary Care Provider [phone] Reason for Referral * General (Routine) - New Request Specialty Diagnoses / Procedures Referred By Contac t Referred To Contact Pulmonary Disease Procedures Pulmonary Function Test ([facility]) Ramon Nixon MD [address] [place] [address] 302 [place] [address] Phone: tel: fax: Referral ID Status Reason Start Date Expiration Date V isits Requested Visits Authorized [id number] New Request 08/31/2024 08/31/2025 1 1 Encounter Details Date Type Department Care Team (Late st Contact Info) Description 08/31/2024 Scanned Document Pulmonary Critical [place] 136 [facility] 302 [place], [place] [phone] Ramon Nixon MD [address] [place] [address] 302 [place] [address] Social History Tobacco Use Types [...] [place] 136 [facility] [address] [place] [address] Ramon Nxion MD 136 [facility] 302 [place] [address] Ksenia Jain, RT 12/20/2025 1:30 PM EDT Office Visit Epilepsy & Seizures at [address] [place] [address] Ricarda Craven, TWO NEEDLE MACHINE OPERATOR 800 [place] [phone] 05/04/2026 1:45 PM EDT Office Visit Stroke 800 [place] [address] Kristine Kelly MD PhD [address] [place] [phone] 05/09/2026 1:00 PM EDT Follow Up Cardiovascular Medicine at 175 [facility] 175 [facility] [place] [address] Mike Hilario MD 175 [facility] 2 [place] [phone] 07/26/2026 11:40 AM EST Office Visit Epilepsy & Seizures at 800 [facility] 800 [place] [address] Virgie Mast MD PhD [address] [place] [address] [place] [phone] documented as of this encounter Procedures Procedure [...] documented as of this encounter Care Teams Nursery Teacher Relationship Specialty Start Date End Date Sal Jose MD [address] [place] [phone] PCP - General Family Medicine 10/16/23 documented as of this encounter
--- OUTSIDE RECORDS SUMMARY | 2025-07-04 13:49 | XMS_ITS | Encounter Summary ---
Author Organization [facility] and [facility] Address [address] [place] [phone] Care Team Providers Care Grocery Clerk Marking Name Role Phone Sal Jose MD Primary Care Provider Encounter Details Date Type Department Care Team (Late st Contact Info) Description 08/09/2014 Abstract [facility] Endocr[facility]ology at 175 [facility] 175 [place] [address] Emerita Beth MD 35 [place] [phone] Social History Tobacco Use Types Packs/Day Years [...] Critical [place] 136 [facility] [address] [place], [place] [address] Ramon Nixon MD 136 [facility] 302 [place] [phone] Ksenia Jain, 12/20/2025 1:30 PM EDT Office Visit [facility] Epilepsy & Seizures at 800 [facility] 800 [facility] [place] [address] Ricarda Craven, [place] 800 [place] [phone] 05/04/2026 1:45 PM EDT Office Visit Stroke 800 [place] [address] Kristine Kelly MD PhD 800 [place] [phone] 05/09/2026 1:00 PM EDT Follow Up Cardiovascular Medicine at 175 [facility] 175 [facility] THIRD [place], [place] [address] Mike Hilario MD 175 [facility] 2 [place] [phone] 07/26/2026 11:40 AM EST Office Visit Epilepsy & Seizures at 800 [facility] 800 [place] [address] Virgie Mast MD PhD 800 [place] [phone] documented as of this encounter Visit Diagnoses Not on filedocumented in this encounter Care Teams Grocery Clerk Marking Relationship Specialty Start Date End Date Sal Jose MD [facility] [address] [phone] PCP - General Family Medicine 10/16/23 documented as of this encounter
--- OUTSIDE RECORDS SUMMARY | 2025-07-04 13:49 | XMS_ITS | Encounter Summary ---
Author Organization [facility] Address Unknown Care Team Providers Care Meteorological Observer Name Role Phone Sal Jose MD Primary Care Provider [phone] Encounter Details Date Type Department Care Team (Late st Contact Info) Description 11/27/2021 Scanned Document Pulmonary Critical [place] 136 [facility] 302 [place], [place] [address] External, Provider Social History Tobacco Use Types [...] 1:00 PM EST Office Visit Pulmonary Critical [place] 136 [facility] 302 [place] [address] Ramon Nixon MD 136 [facility] 302 [place] [address] Ksenia Jain, 12/20/2025 1:30 PM EDT Office Visit [facility] Epilepsy & Seizures at [address] 800 [facility] [place] [address] Ricarda Craven APRN 800 [place] [phone] 05/04/2026 1:45 PM EDT Office Visit Stroke 800 [facility] [place] [address] Kristine Kelly MD PhD 800 [facility] [phone] 05/09/2026 1:00 PM EDT Follow Up Cardiovascular Medicine at 175 [facility] 175 [facility] [place] [address] Mike Hilario MD 175 [facility] 2 [place] [phone] 07/26/2026 11:40 AM EST Office Visit Epilepsy & Seizures at 800 [facility] 800 [facility] [place] [address] Virgie Mast MD PhD 800 [place] [phone] documented as of this encounter Visit Diagnoses Not on filedocumented in this encounter Care Teams Meteorological Observer Relationship Specialty Start Date End Date Sal Jose MD [address] [phone] PCP - General Family Medicine 10/16/23 documented as of this encounter
--- OUTSIDE RECORDS SUMMARY | 2025-07-04 13:49 | XMS_ITS | Encounter Summary ---
Author Organization [facility] and [facility] Address [address] [place] [address] Care Team Providers Care Sole Rounding Machine Operator Name Role Phone Sal Jose MD Primary Care Provider [phone] Encounter Details Date Type Department Care Team (Late st Contact Info) Description 12/04/2023 Transcribed Orders [facility] Laboratory Specimens 55 [place] [address] System, Provider Not In CREST variant of [...] EST Office Visit Pulmonary Critical [place] 136 [facility] 302 [place], [place] [address] Ramon Nixon MD [address] [place] [address] 302 [place] [phone] Ksenia Jain, 12/20/2025 1:30 PM EDT Office Visit [facility] Epilepsy & Seizures at 800 [facility] 800 [place] [address] Ricarda Craven, [place] 800 [place] [phone] 05/04/2026 1:45 PM EDT Office Visit Stroke 800 [place] [address] Kristine Kelly MD PhD 800 [place] [phone] 05/09/2026 1:00 PM EDT Follow Up Cardiovascular Medicine at 175 [facility] 175 [facility] THIRD F[place], [place] [address] Mike Hilario MD [address] [place] [address] 2 [place] [phone] 07/26/2026 11:40 AM EST Office Visit Epilepsy & Seizures at 800 [facility] 800 [place] [address] Virgie Mast MD PhD 800 [place] [address] documented as of this encounter Results * Sedimentation rate (ESR) (05/20/2024 12:53 PM EDT) Sedimentation Rate (ESR) 4 0 - 20 mm/hr 05/20/2024 1:59 PM EDT [facility] DEPARTMENT OF LABORATORY MEDICINE Blood Venipuncture / Unknown 05/20/2024 12:53 PM EDT 05/20/2024 1:31 PM EDT us Provider Not In System LAB BLOOD ORDERABLES Evelin smith Result [facility] DEPARTMENT OF LABORATORY MEDICINE [address] [place] [address], [facility] [phone] * (ABNORMAL) C-reactive protein (CRP) (04/15/2024 12:20 PM EDT) CRP, High Sensitivity 3.1(H) See comment mg/L 04/15/2024 3:42 PM EDT [facility] DEPARTMENT OF LABORATORY MEDICINE Comment: hs-CRP [...] ORDERABLES Evelin l Result Performing Organization Address City/[facility]/ZIP Co de Phone Number [facility] DEPARTMENT OF LABORATORY MEDICINE [address] [place] [address] * (ABNORMAL) Sedimentation rate (ESR) (04/15/2024 12:20 PM EDT) Sedimentation Rate (ESR) 24(H) 0 - 20 mm/hr 04/15/2024 3:41 PM EDT [facility] DEPARTMENT OF LABORATORY MEDICINE Blood Venipuncture / Unknown 04/15/2024 12:20 PM EDT 04/15/2024 2:54 PM EDT us Provider Not In System LAB BLOOD ORDERABLES Evelin l Result [facility] DEPARTMENT OF LABORATORY MEDICINE [address] [place] [address] * (ABNORMAL) C-reactive protein (CRP) (03/17/2024 10:36 AM EDT) CRP, High Sensitivity 6.3(H) See comment mg/L 03/17/2024 11:47 AM EDT [facility] DEPARTMENT OF LABORATORY MEDICINE Comment: hs-CRP [...] ORDERABLES Evelin l Result Performing Organization Address City/[facility]/ZIP Co de Phone Number [facility] DEPARTMENT OF LABORATORY MEDICINE [address] [place] [address] * (ABNORMAL) Sedimentation rate (ESR) (03/17/2024 10:36 AM EDT) Sedimentation Rate (ESR) 23(H) 0 - 20 mm/hr 03/17/2024 11:46 AM EDT [facility] DEPARTMENT OF LABORATORY MEDICINE Blood Venipuncture / Unknown 03/17/2024 10:36 AM EDT 03/17/2024 11:15 AM EDT us Provider Not In System LAB BLOOD ORDERABLES Evelin l Result Performing Organization Address [facility] Co de Phone Number [facility] DEPARTMENT OF LABORATORY MEDICINE [address] [place] [address] * (ABNORMAL) C-reactive protein (CRP) (02/20/2024 3:41 PM EDT) CRP, High Sensitivity 8.9(H) See comment mg/L 02/20/2024 4:36 PM EDT [facility] DEPARTMENT OF LABORATORY MEDICINE Comment: hs-CRP [...] ORDERABLES Evelin l Result Performing Organization Address City/[facility] Co de Phone Number [facility] DEPARTMENT OF LABORATORY MEDICINE [address] [place] [address] * Sedimentation rate (ESR) (02/20/2024 3:41 PM EDT) Sedimentation Rate (ESR) 18 0 - 20 mm/hr 02/20/2024 7:04 PM EDT [facility] DEPARTMENT OF LABORATORY MEDICINE Blood Venipuncture / Unknown 02/20/2024 3:41 PM EDT 02/20/2024 4:04 PM EDT us Provider Not In System LAB BLOOD ORDERABLES Evelin l Result Performing Organization Address [facility]/[place] de Phone Number [facility] DEPARTMENT OF LABORATORY MEDICINE [address] [place] [address] * (ABNORMAL) C-reactive protein (CRP) (12/09/2023 1:52 PM EDT) CRP, High Sensitivity 4.4(H) See comment mg/L 12/09/2023 4:44 PM EDT [facility] DEPARTMENT OF LABORATORY MEDICINE Comment: hs-CRP [...] ORDERABLES Evelin l Result Performing Organization Address City/[facility] Co de Phone Number [facility] DEPARTMENT OF LABORATORY MEDICINE [address] [place] [address] * Sedimentation rate (ESR) (12/09/2023 1:52 PM EDT) Sedimentation Rate (ESR) 10 0 - 20 mm/hr 12/09/2023 5:08 PM EDT [facility] DEPARTMENT OF LABORATORY MEDICINE Blood Venipuncture / Unknown 12/09/2023 1:52 PM EDT 12/09/2023 4:20 PM EDT us Provider Not In System LAB BLOOD ORDERABLES Evelin l Result Performing Organization Address [facility]/[place] de Phone Number [facility] DEPARTMENT OF LABORATORY MEDICINE [address] [place] [address] documented in this encounter Visit Diagnoses 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
--- OUTSIDE RECORDS SUMMARY | 2025-07-04 13:49 | XMS_ITS | Encounter Summary ---
Author Organization [facility] Address Unknown Care Team Providers Care Business Account Leader Name Role Phone Sal Jose MD Primary Care Provider [phone] Encounter Details Date Type Department Care Team (Late st Contact Info) Description 08/13/2023 Scanned Document [place]monary Critical [place] [facility] 302 [place], [place] [address] External, Provider Social History Tobacco Use Types [...] EST Office Visit Pulmonary Critical [place] [facility] 302 [place] [address] Ramon Nixon MD 136 [facility] 302 [place] [address] Ksenia Jain, 12/20/2025 1:30 PM EDT Office Visit [facility] at [address] 800 [facility] [place] [address] Ricarda Craven APRN 800 [place] [address] 05/04/2026 1:45 PM EDT Office Visit Stroke 800 [place] [address] Kristine Kelly MD PhD 800 [place] [address] 05/09/2026 1:00 PM EDT Follow Up Cardiovascular Medicine at 175 [facility] 175 [facility] [place] [address] Mike Hilario MD 175 [facility] 2 [place] [phone] 07/26/2026 11:40 AM EST Office Visit Epilepsy & Seizures at 800 [facility] [place] 800 [place] [address] Virgie Mast MD PhD 800 [place] [phone] documented as of this encounter Visit Diagnoses Not on filedocumented in this encounter Care Teams Business Account Leader Relationship Specialty Start Date End Date Sal Jose MD [address] [phone] PCP - General Family Medicine 10/16/23 documented as of this encounter
--- OUTSIDE RECORDS SUMMARY | 2025-07-04 13:49 | XMS_ITS | Encounter Summary ---
Author Organization [facility] Address Unknown Care Team Providers Care Restaurant Inspector Name Role Phone Sal Jose MD Primary Care Provider Encounter Details Date Type Department Care Team (Late st Contact Info) Description 11/27/2021 Scanned Document Pulmonary Critical [place] 136 [facility] [address] [place], [place] [address] Gaviota Rivera, OT Social History Tobacco Use [...] 1:00 PM EST Office Visit Pulmonary Critical [place] 136 [facility] [address] [place], [place] [address] Ramon Nixon MD 136 [facility] 302 [place] [address] Ksenia Jain, 12/20/2025 1:30 PM EDT Office Visit [facility] at [address] 800 [facility] [place] [address] Ricarda Craven APRN 800 [place] [phone] 05/04/2026 1:45 PM EDT Office Visit Stroke 800 [place] [address] Kristine Kelly MD PhD 800 [facility] [place] [address] 05/09/2026 1:00 PM EDT Follow Up Cardiovascular Medicine at 175 [facility] 175 [facility] [place] [address] Mike Hilario MD 175 [facility] 2 [place] [address] 07/26/2026 11:40 AM EST Office Visit Epilepsy & Seizures at 800 [facility] 800 [place] [address] Virgie Mast MD PhD 800 [facility] [place] [phone] documented as of this encounter Visit Diagnoses Not on filedocumented in this encounter Care Teams Restaurant Inspector Relationship Specialty Start Date End Date Sal Jose MD [facility] [address] [phone] PCP - General Family Medicine 10/16/23 documented as of this encounter
--- OUTSIDE RECORDS SUMMARY | 2025-07-04 13:49 | XMS_ITS | Encounter Summary ---
Author Organization [facility] Address [address] [address] Phone Care Team Providers Care Coal Picker Name Role Phone Sal Jose MD Primary Care Provider [phone] Encounter Details Date Type Department Care Team (Late Contact Info) Description 05/25/2024 Scanned Document [facility] - [address] [id number] Nain Cat MD [address] [place] [address] Social History Tobacco Use Types Packs/Day [...] PM EST Office Visit [place] [address] [place] [address] Ramon Nixon MD 136 [facility] 302 [place] [address] Ksenia Jain, RT 12/20/2025 1:30 PM EDT Office Visit Epilepsy & Seizures at 800 [facility] 800 [place] [address] Ricarda Craven, FIGHT MANAGER 800 [place] [address] 05/04/2026 1:45 PM EDT Office Visit Stroke 800 [place] [address] Kristine Kelly MD PhD 800 [place] [address] 05/09/2026 1:00 PM EDT Follow Up Cardiovascular Medicine at 175 [facility] 175 [facility] [place] [address] Mike Hilario MD 175 [facility] 2 [place] [address] 07/26/2026 11:40 AM EST Office Visit Epilepsy & Seizures at 800 [facility] 800 [place] [address] Virgie Mast MD PhD 800 [place] [address] documented as of this encounter Visit Diagnoses Not on filedocumented in this encounter Additional Health Concerns Assessment Noted Time PHQ-9 Depression Total Score: 0 04/07/20 24 2:31 PM EDT documented as of this encounter Care Teams Coal Picker Relationship Specialty Start Date End Date Sal Jose MD [facility] [address] [address] PCP - General Family Medicine 10/16/23 documented as of this encounter
--- OUTSIDE RECORDS SUMMARY | 2025-07-04 13:49 | XMS_ITS | Clinical Summary ---
Author Organization [employer] Address [address] [place] [address] 7t [place] [address] Care Team Providers Care Battery Tester And Repairer Name Role Phone Cordell Saba Unavailable [...] Pulmonary embolism 06/05/2012 Overview (07/29/2024): 1990- in [place] Primary hypertension 02/13/2012 Hypothyroidism 02/04/2012 Overview (07/29/2024): [...] to Health Maintenance Insurance 1-D [place]. [place] [address] [facility] FULL [place]IC[place] [id number] HSN FULL MEDIC[place] [id number] DENTAL - N FULL (MEDICAID) Care Teams Battery Tester And Repairer Relationship Specialty Start Date End Date Cordell Saba Health Navigator 08/12/24 CASSIDY DE LA FUENTE NPI ID: [id number] Address: [address] [place] [id number] Primary Care Physician [id number] Primary Care Provider 08/12/18
--- OUTSIDE RECORDS SUMMARY | 2025-07-04 13:49 | XMS_ITS | Encounter Summary ---
Author Organization [facility] Address [address] [place] [address] Care Team Providers Care Back Roller Name Role Phone Sal Jose MD Primary Care Provider Reason for Visit * Reason Onset Date Comments Holter/Event Monitor 11/13/2023 Trying to E nroll Pt for MCT monitor Encounter Details Date Type Department Care Team (Late st Contact Info) Description 11/13/2023 Telephone [facility] Stroke 800 [place], [place] [address] Kristine Kelly MD PhD 800 [place] [phone] Holter/Event Monitor (Trying to Enroll Pt for [...] EST Office Visit Pulmonary Critical [place] 136 [facility] 302 [place] [address] Ramon Nixon MD 136 [facility] 302 [place] [address] Ksenia Jain, 12/20/2025 1:30 PM EDT Office Visit [facility] at [address] 800 [facility] [place] [address] Ricarda Craven, [place] 800 [place] [phone] 05/04/2026 1:45 PM EDT Office Visit Stroke 800 [place] [address] Kristine Kelly MD PhD [address] [place] [phone] 05/09/2026 1:00 PM EDT Follow Up Cardiovascular Medicine at 175 [facility] 175 [facility] THIRD FLOOR [place], [place] [address] Mike Hilario MD 175 [facility] 2 [place] [phone] 07/26/2026 11:40 AM EST Office Visit Epilepsy & Seizures at 800 [facility] 800 [place] [address] Virgie Mast MD PhD 800 [place] [phone] documented as of this encounter Visit Diagnoses Not on filedocumented in this encounter Care Teams Back Roller Relationship Specialty Start Date End Date Sal Jose MD [address] [phone] PCP - General Family Medicine 10/16/23 documented as of this encounter
--- OUTSIDE RECORDS SUMMARY | 2025-07-04 13:49 | XMS_ITS | Encounter Summary ---
Author Organization [facility] Address [address] [place] [address] Care Team Providers Care Security Program Manager Name Role Phone Sal Jose MD Primary Care Provider [phone] Encounter Details Date Type Department Care Team (Late st Contact Info) Description 10/28/2023 Scanned Document [facility] at 800 [facility] 800 [facility] [place] [address] Joao Loredo MD 800 [place] [phone] Social History Tobacco Use Types Packs/Day Years [...] [place] 136 [facility] [address] [place], [place] [phone] Ramon Nixon MD [address] [facility] 302 [place] [address] Ksenia Jain, 12/20/2025 1:30 PM EDT Office Visit [facility] at 800 [facility] 800 [place] [address] Ricarda Craven, [place] 800 [place] [phone] 05/04/2026 1:45 PM EDT Office Visit Stroke 800 [place], [place] [address] Kristine Kelly MD PhD 800 [place] [address] 05/09/2026 1:00 PM EDT Follow Up Cardiovascular Medicine at [address] [place] [address] THIRD [place]LOOR [place], [place] [address] Mike Hilario MD [address] [place] [address] 2 [place] [phone] 07/26/2026 11:40 AM EST Office Visit [facility] at 800 [facility] 800 [place] [address] Virgie Mast MD PhD 800 [place] [phone] documented as of this encounter Visit Diagnoses Not on filedocumented in this encounter Care Teams Security Program Manager Relationship Specialty Start Date End Date Sal Jose MD [address] [phone] PCP - General Family Medicine 10/16/23 documented as of this encounter
== END 2025-07-04 11:35 | disposition home or self-care (01) ==
LOC: HO.HWS 10:47
PROVIDERS: PCP Family Medicine; Visit Provider Obstetrics & Gynecology
DX: N95.0 Postmenopausal bleeding (principal); D06.9 Carcinoma in situ of cervix, unspecified
CPT/HCPCS: 99213

== ENCOUNTER → 2025-07-04 10:46 | Outpatient (BNVA) | payer MEDICARE, MEDICAID, SELFPAY | PROVIDERS: PCP Family Medicine; Visit Provider Obstetrics & Gynecology | DX: Z01.818 Encounter for other preprocedural examination (principal); N95.0 Postmenopausal bleeding; D06.9 Carcinoma in situ of cervix, unspecified | CPT/HCPCS: 99212 ==

== ENCOUNTER 2025-07-25 14:07 | Outpatient (REF) | payer MEDICARE, MEDICAID, SELFPAY ==
--- NOTE | ~2025-07-25 | XR_ITS ---
EXAMINATION: XR ABDOMEN KUB CLINICAL INDICATION: FOREIGN BODY-ABDOMEN COMPARISON: None available. TECHNIQUE: AP view of the abdomen. FINDINGS: No radiopaque foreign body is identified. Bowel gas pattern is unremarkable. 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 XR/XR abdomen 1V IMPRESSION: Unremarkable examination. Electronically signed by: Jef Ruelas MD 07/25/2025 02:52 PM EST
--- NOTE | ~2025-07-25 | MR_ITS ---
EXAMINATION: MR KNEE WITHOUT CONTRAST, RIGHT CLINICAL INFORMATION: Pain. Medial meniscal tear. Patient reports no prior right knee surgery. COMPARISON: None available. TECHNIQUE: MRI of the knee without contrast was performed using routine sequences on a high-field scanner. FINDINGS: MENISCI: Medial Meniscus: Posterior horn is small in caliber, with tear involving the superior and inferior articular surfaces and free edge. Body is mildly extruded, with degenerative signal, and focal undersurface fraying/low-grade tear. Lateral Meniscus: Complex tear of the anterior horn, with diminutive irregular meniscal tissue. Body is partially extruded, prominent intrasubstance signal. Degenerative fraying/ill-defined tear of the posterior root and central posterior horn. LIGAMENTS: Cruciate: ACL mucoid degeneration. Intact PCL. Collateral: Intact EXTENSOR MECHANISM: Intact ARTICULAR CARTILAGE/BONE: Patellofemoral Compartment: Mild-moderate arthritis. Mild lateral patellar subluxation. Medial Compartment: Moderate arthritis. Chondral loss, subchondral edema. Lateral Compartment: Moderate arthritis. Chondrosis loss, subchondral edema. No fracture JOINT FLUID AND BURSAE: Moderate effusion. Small Suazo's cyst. Subcutaneous edema. MR/MR knee RT wo con IMPRESSION: * Tear of the posterior horn of the medial meniscus. Degenerative fraying/ill-defined tear of the body. * Tear of the anterior horn of the lateral meniscus. Degenerative fraying/tearing of the posterior root/posterior horn. * ACL mucoid degeneration * Tricompartment arthritis *Moderate effusion. Small Suazo's cyst. Electronically signed by: Willi Godoy MD 07/27/2025 09:37 AM EST
--- OUTSIDE RECORDS SUMMARY | 2025-07-25 17:39 | XMS_ITS | Encounter Summary ---
Author Organization [facility] Address 20 [place] [address] Care Team Providers Care Pleasure Craft Sailor Name Role Phone Sal Jose MD Primary Care Provider Encounter Details Date Type Department Care Team (Late st Contact Info) Description 08/13/2023 Scanned Document [facility] RE[facility]ERR[facility] [address] [place] [address] External, Provider Social History Tobacco Use Types [...] EST Office Visit Pulmonary Critical [place] 136 [facility] 302 [place] [address] Ramon Nixon MD [address] [place] [address] 302 [place] [address] Ksenia Jain RT 12/20/2025 1:30 PM EDT Office Visit [facility] at 800 [facility] 800 [facility] [place] [address] Ricarda Craven APRN 800 [place] [address] 05/04/2026 1:45 PM EDT Office Visit Stroke 800 [facility] [place] [address] Kristine Kelly MD PhD 800 [place] [phone] 05/09/2026 1:00 PM EDT Follow Up Cardiovascular Medicine at 175 [facility] 175 [facility] [place] [address] Mike Hilario MD 175 [facility] 2 [place] [phone] 07/26/2026 11:40 AM EST Office Visit Epilepsy & Seizures at 800 [facility] 800 [facility] [place] [address] Virgie Mast MD PhD 800 [place] [address] documented as of this encounter Visit Diagnoses Not on filedocumented in this encounter Care Teams Pleasure Craft Sailor Relationship Specialty Start Date End Date Sal Jose MD [address] [phone] PCP - General Family Medicine 10/16/23 documented as of this encounter
--- OUTSIDE RECORDS SUMMARY | 2025-07-25 17:39 | XMS_ITS | Encounter Summary ---
Author Organization [facility] Address 20 [place] [address] Care Team Providers Care Health Information Assistant Name Role Phone Sal Jose MD Primary Care Provider Encounter Details Date Type Department Care Team (Late st Contact Info) Description 08/14/2023 Transcribed Orders EXTERNAL REFERRAL SOURCE [address] [place] [address] Referral, Self Social History Tobacco Use Types [...] EST Office Visit Pulmonary Critical [place] 136 [facility] 302 [place] [address] Ramon Nixon MD [address] [place] [address] 302 [place] [address] Ksenia Jain RT 12/20/2025 1:30 PM EDT Office Visit [facility] at 800 [facility] 800 [facility] [place] [address] Ricarda Craven APRN 800 [place] [phone] 05/04/2026 1:45 PM EDT Office Visit Stroke 800 [facility] [address] Kristine Kelly MD PhD 800 [facility] [place] [phone] 05/09/2026 1:00 PM EDT Follow Up Cardiovascular Medicine at 175 [facility] 175 [facility] [place] [address] Mike Hilario MD 175 [facility] 2 [place] [phone] 07/26/2026 11:40 AM EST Office Visit Epilepsy & Seizures at 800 [facility] 800 [facility] [place] [address] Virgie Mast MD PhD 800 [facility] [place] [phone] documented as of this encounter Visit Diagnoses Not on filedocumented in this encounter Care Teams Health Information Assistant Relationship Specialty Start Date End Date Sal Jose MD [address] [phone] PCP - General Family Medicine 10/16/23 documented as of this encounter
--- OUTSIDE RECORDS SUMMARY | 2025-07-25 17:39 | XMS_ITS | Encounter Summary ---
Author Organization [facility] Address [address] [place] [address] Care Team Providers Care Drying Room Attendant Name Role Phone Sal Jose MD Primary Care Provider [phone] Encounter Details Date Type Department Care Team (Late st Contact Info) Description 10/17/2023 Scanned Document [facility] Stroke 800 [place] [address] Kristine Kelly MD PhD [address] [place] [phone] Social History Tobacco Use Types Packs/Day Years [...] [facility] [address] [place], [place] [address] Ramon Nixon MD 136 [facility] 302 [place] [phone] Ksenia Jain, 12/20/2025 1:30 PM EDT Office Visit [facility] at 800 [facility] 800 [facility] [address] Ricarda Craven APRN 800 [place] [phone] 05/04/2026 1:45 PM EDT Office Visit Stroke 800 [place], [place] [address] Kristine Kelly MD PhD [address] [place] [address] 05/09/2026 1:00 PM EDT Follow Up Cardiovascular Medicine at 175 [facility] 175 [facility] THIRD [place], [place] [address] Mike Hilario MD [address] [place] [phone] 07/26/2026 11:40 AM EST Office Visit Epilepsy & Seizures at 800 [facility] 800 [facility] [address] Virgie Mast MD PhD [address] [place] [phone] documented as of this encounter Visit Diagnoses Not on filedocumented in this encounter Care Teams Drying Room Attendant Relationship Specialty Start Date End Date Sal Jose MD [facility]3 [facility] [address] [place] [phone] PCP - General Family Medicine 10/16/23 documented as of this encounter
--- OUTSIDE RECORDS SUMMARY | 2025-07-25 17:39 | XMS_ITS | Encounter Summary ---
Author Organization [facility] Address [address] [place] [address] Care Team Providers Care Education Professor Name Role Phone Sal Jose MD Primary Care Provider [phone] Encounter Details Date Type Department Care Team (Late st Contact Info) Description 10/28/2023 Scanned Document [facility] at 800 [facility] 800 [facility] [place] [address] Joao Loredo MD 800 [place] [phone] Social History Tobacco Use Types Packs/Day Years [...] EST Office Visit Pulmonary Critical [place] 136 [facility] [address] [place], [place] [phone] Ramon Nixon MD 136 [facility] 302 [place] [address] Ksenia Jain, 12/20/2025 1:30 PM EDT Office Visit Epilepsy & Seizures at 800 [facility] 800 [facility] [address] Ricarda Craven, [place] 800 [place] [phone] 05/04/2026 1:45 PM EDT Office Visit Stroke 800 [facility] [place] [address] Kristine Kelly MD PhD 800 [place] [address] 05/09/2026 1:00 PM EDT Follow Up Cardiovascular Medicine at 175 [facility] 175 [facility] [place] [address] Mike Hilario MD [address] [place] [address] 2 [place] [phone] 07/26/2026 11:40 AM EST Office Visit Epilepsy & Seizures at 800 [facility] 800 [facility] [address] Virgie Mast MD PhD 800 [place] [phone] documented as of this encounter Procedures Procedure [...] CT Result Scan (02/06/2022 11:32 AM EDT) [facility] Provider IMG SCAN REPORTS Final Resul t * CT Result Scan (02/06/2022 11:26 AM EDT) [facility] Provider IMG SCAN REPORTS Final Resul t documented in this encounter Visit Diagnoses Not on filedocumented in this encounter Care Teams Education Professor Relationship Specialty Start Date End Date Sal Jose MD [facility] [address] [place] [phone] PCP - General Family Medicine 10/16/23 documented as of this encounter
--- OUTSIDE RECORDS SUMMARY | 2025-07-25 17:39 | XMS_ITS | Encounter Summary ---
Author Organization [facility] Address [address] [place] [address] Care Team Providers Care Supervisor Rides Name Role Phone Sal Jose MD Primary Care Provider [phone] Encounter Details Date Type Department Care Team (Late st Contact Info) Description 10/27/2023 Scanned Document CARE CENTER SCHEDULING 25 [place], [place] [address] Provider, Historical . [phone] (Fax) Social History Tobacco Use Types Packs/Day [...] [place] 136 [facility] [address] [place], [place] [address] Ramon Nixon MD [address] [place] [address] 302 [place] [phone] Ksenia Jain, 12/20/2025 1:30 PM EDT Office Visit Epilepsy & Seizures at [address] 800 [facility] Lower [place], [place] [address] Ricarda Craven, [place] 800 [place] [phone] 05/04/2026 1:45 PM EDT Office Visit [facility] Stroke 800 [place] [address] Kristine Kelly MD PhD 800 [place] [address] 05/09/2026 1:00 PM EDT Follow Up Cardiovascular Medicine at 175 [facility] 175 [facility] THIRD FLOOR [place], [place] [address] Mike Hilario MD 175 [facility] 2 [place] [address] 07/26/2026 11:40 AM EST Office Visit Epilepsy & Seizures at 800 [facility] 800 [place] [address] Virgie Mast MD PhD 800 [place] [phone] documented as of this encounter Visit Diagnoses Not on filedocumented in this encounter Care Teams Supervisor Rides Relationship Specialty Start Date End Date Sal Jose MD [address] [phone] PCP - General Family Medicine 10/16/23 documented as of this encounter
--- OUTSIDE RECORDS SUMMARY | 2025-07-25 17:39 | XMS_ITS | Encounter Summary ---
Author Organization [facility] Address [address] [place] [address] Care Team Providers Care Vp Software Support Name Role Phone Sal Jose MD Primary Care Provider [phone] Encounter Details Date Type Department Care Team (Late st Contact Info) Description 10/28/2023 Scanned Document CARE CENTER SCHEDULING 25 [place], [place] [address] Provider, Historical . [phone] (Fax) Social History Tobacco Use Types Packs/Day [...] [place] 136 [facility] [address] [place], [place] [address] Ramon Nixon MD [address] [place] [address] 302 [place] [phone] Ksenia Jain, 12/20/2025 1:30 PM EDT Office Visit Epilepsy & Seizures at [address] 800 [facility] Lower [place], [place] [address] Ricarda Craven, [place] 800 [facility] [place] [phone] 05/04/2026 1:45 PM EDT Office Visit Stroke 800 [facility] [place] [address] Kristine Kelly MD PhD 800 [place] [phone] 05/09/2026 1:00 PM EDT Follow Up Cardiovascular Medicine at 175 [facility] 175 [facility] [place] [address] Mike Hilario MD 175 [facility] 2 [place] [address] 07/26/2026 11:40 AM EST Office Visit Epilepsy & Seizures at 800 [facility] 800 [facility] [place] [address] Virgie Mast MD PhD 800 [place] [phone] documented as of this encounter Procedures Procedure [...] on filedocumented in this encounter Care Teams Vp Software Support Relationship Specialty Start Date End Date Sal Jose MD [address] [phone] PCP - General Family Medicine 10/16/23 documented as of this encounter
--- OUTSIDE RECORDS SUMMARY | 2025-07-25 17:39 | XMS_ITS | Encounter Summary ---
Author Organization [facility] Address [address] [place] [address] Care Team Providers Care Regional Sales Consultant Name Role Phone Sal Jose MD Primary Care Provider [phone] Encounter Details Date Type Department Care Team (Late st Contact Info) Description 10/28/2023 Scanned Document [facility] at 800 [facility] 800 [facility] [place] [address] Joao Loredo MD 800 [place] [phone] Social History Tobacco Use Types Packs/Day Years [...] [place] 136 [facility] [address] [place], [place] [address] Ramon Nixon MD 136 [facility] 302 [place] [address] Ksenia Jain, 12/20/2025 1:30 PM EDT Office Visit [facility] at 800 [facility] 800 [place] [address] Ricarda Craven, [place] 800 [place] [phone] 05/04/2026 1:45 PM EDT Office Visit Stroke 800 [place], [place] [address] Kristine Kelly MD PhD 800 [place] [address] 05/09/2026 1:00 PM EDT Follow Up Cardiovascular Medicine at [address] [place] [address] THIRD [place], [place] [address] Mike Hilario MD [address] [place] [address] 2 [place] [phone] 07/26/2026 11:40 AM EST Office Visit [facility] at 800 [facility] 800 [place] [address] Virgie Mast MD PhD 800 [place] [phone] documented as of this encounter Visit Diagnoses Not on filedocumented in this encounter Care Teams Regional Sales Consultant Relationship Specialty Start Date End Date Sal Jose MD [address] [address] PCP - General Family Medicine 10/16/23 documented as of this encounter
--- OUTSIDE RECORDS SUMMARY | 2025-07-25 17:39 | XMS_ITS | Encounter Summary ---
Author Organization [facility] and [facility] Address [address] [place] [address] Care Team Providers Care Brainer Name Role Phone Sal Jose MD Primary Care Provider [phone] Encounter Details Date Type Department Care Team (Late st Contact Info) Description 10/28/2023 Scanned Document [facility] Neuro[facility] at 800 [facility] 800 [facility] [place] [address] Joao Loredo MD 800 [place] [phone] Social History Tobacco Use Types Packs/Day Years [...] EST Office Visit Pulmonary Critical [place] 136 [facility] [address] [place], [place] [phone] Ramon Nixon MD 136 [facility] 302 [place] [address] Ksenia Jain, 12/20/2025 1:30 PM EDT Office Visit [facility] Ep[facility] Seizures at 800 [facility] 800 [facility] [place] [address] Ricarda Craven, [place] 800 [facility] [place] [phone] 05/04/2026 1:45 PM EDT Office Visit Stroke 800 [facility], [place] [phone] Kristine Kelly MD PhD 800 [place] [phone] 05/09/2026 1:00 PM EDT Follow Up Cardiovascular Medicine at 175 [facility] 175 [facility] [place] [address] Mike Hilario MD [address] [place] [address] 2 [place] [phone] 07/26/2026 11:40 AM EST Office Visit [facility] Ep[facility] Seizures at 800 [facility] 800 [facility] [place] [address] Virgie Mast MD PhD 800 [place] [phone] documented as of this encounter Procedures Procedure [...] CT Result Scan (07/21/2023 1:08 PM EST) [facility] Provider IMG SCAN REPORTS Final Resul t * CT Result Scan (05/17/2021 11:42 AM EDT) Historical Provider IMG SCAN REPORTS Final Resul t * MRI Result Scan (05/12/2020 11:48 AM EDT) Result [facility] Provider IMG SCAN REPORTS Final Resul t * MRI Result Scan (04/12/2020 12:01 PM EDT) Result [facility] Provider IMG SCAN REPORTS Final Resul t * MRI Result Scan (04/12/2020 11:55 AM EDT) Historical Provider IMG SCAN REPORTS Final Resul t * MRI Result Scan (04/08/2020 12:04 PM EDT) Historical Provider IMG SCAN REPORTS Final Resul t * CT Result Scan (02/25/2020 12:11 PM EDT) [facility] Provider IMG SCAN REPORTS Final Resul t * MRI Result Scan (02/01/2020 12:16 PM EDT) Historical Provider IMG SCAN REPORTS Final Resul t * CT Result Scan (12/25/2018 12:21 PM EDT) Result [facility] Provider IMG SCAN REPORTS Final Resul t * CT Result Scan (08/25/2015 12:26 PM EST) Result [facility] Provider IMG SCAN REPORTS Final Resul t * CT Result Scan (09/28/2012 12:30 PM EST) Result [facility] Provider IMG SCAN REPORTS Final Resul t * CT Result Scan (09/07/2012 12:34 PM EST) Result [facility] Provider IMG SCAN REPORTS Final Resul t * CT Result Scan (02/13/2012 12:38 PM EDT) Result [facility] Provider IMG SCAN REPORTS Final Resul t * CT Result Scan (12/17/2010 1:03 PM EDT) Result [facility] Provider IMG SCAN REPORTS Final Resul t * CT Result Scan (12/17/2010 1:00 PM EDT) Result [facility] Provider IMG SCAN REPORTS Final Resul t * CT Result Scan (12/17/2010 12:56 PM EDT) Result [facility] Provider IMG SCAN REPORTS Final Resul t * CT Result Scan (12/17/2010 12:52 PM EDT) Result [facility] Provider IMG SCAN REPORTS Final Resul t * CT Result Scan (12/17/2010 12:46 PM EDT) Result [facility] Provider IMG SCAN REPORTS Final Resul t * CT Result Scan (12/17/2010 12:41 PM EDT) Result [facility] Provider IMG SCAN REPORTS Final Resul t documented in this encounter Visit Diagnoses Not on filedocumented in this encounter Care Teams Brainer Relationship Specialty Start Date End Date Sal Jose MD [address] [phone] PCP - General Family Medicine 10/16/23 documented as of this encounter
--- OUTSIDE RECORDS SUMMARY | 2025-07-25 17:39 | XMS_ITS | Encounter Summary ---
Author Organization [facility] and [facility] Address [address] [place] [address] Care Team Providers Care Control Cabinet Assembler Name Role Phone Sal Jose MD Primary Care Provider [phone] Reason for Visit * Reason Onset Date Comments Holter/Event Monitor 11/13/2023 Trying to E nroll Pt for MCT monitor Encounter Details Date Type Department Care Team (Late st Contact Info) Description 11/13/2023 Telephone [facility] Stroke 800 [place], [place] [address] Kristine Kelly MD PhD 800 [place] [phone] Holter/Event Monitor (Trying to Enroll Pt for [...] Office Visit [place]monary Critical [place] 136 [facility] 302 [place] [address] Ramon Nixon MD 136 [facility] 302 [place] [phone] Ksenia Jain, 12/20/2025 1:30 PM EDT Office Visit [facility] Epilepsy [facility] Seizures at [address] 800 [facility] [place] [address] Ricarda Craven, [place] 800 [place] [phone] 05/04/2026 1:45 PM EDT Office Visit Stroke 800 [place] [address] Kristine Kelly MD PhD 800 [place] [phone] 05/09/2026 1:00 PM EDT Follow Up Cardiovascular Medicine at 175 [facility] 175 [facility] THIRD FLOOR [place], [place] [address] Mike Hilario MD 175 [facility] 2 [place] [phone] 07/26/2026 11:40 AM EST Office Visit Epilepsy & Seizures at 800 [facility] 800 [place] [address] Virgie Mast MD PhD 800 [place] [phone] documented as of this encounter Visit Diagnoses Not on filedocumented in this encounter Care Teams Control Cabinet Assembler Relationship Specialty Start Date End Date Sal Jose MD [address] [phone] PCP - General Family Medicine 10/16/23 documented as of this encounter
--- OUTSIDE RECORDS SUMMARY | 2025-07-25 17:39 | XMS_ITS | Encounter Summary ---
Author Organization [facility] Address Unknown Care Team Providers Care Butter Liquefier Name Role Phone Sal Jose MD Primary Care Provider [phone] Encounter Details Date Type Department Care Team (Late st Contact Info) Description 08/27/2023 Scanned Document [facility]monary Critical [place] 136 [facility] 302 [place] [address] External, Provider Social History Tobacco Use Types [...] 1:00 PM EST Office Visit Pulmonary Critical [place] 136 [facility] 302 [place] [address] Ramno Nixon MD 136 [facility] 302 [place] [address] Ksenia Jain, 12/20/2025 1:30 PM EDT Office Visit [facility] Epilepsy [facility] Seizures at [address] 800 [facility] [place] [address] Ricarda Craven APRN 800 [place] [phone] 05/04/2026 1:45 PM EDT Office Visit Stroke 800 [place] [address] Kristine Kelly MD PhD 800 [place] [phone] 05/09/2026 1:00 PM EDT Follow Up Cardiovascular Medicine at 175 [facility] 175 [facility] [place] [address] Mike Hilario MD 175 [facility] Fl 2 [place] [address] 07/26/2026 11:40 AM EST Office Visit Epilepsy & Seizures at 800 [facility] 800 [facility] [address] Virgie Mast MD PhD 800 [place] [phone] documented as of this encounter Procedures Procedure Name Priority Date/Time Associated Diagnosis Comments CARDIAC ECHO RESULT SCAN Routine 08/27/2023 documented in this encounter Results * Cardiac Echo Result Scan (08/27/2023) us Provider External CV CARDIAC REPORT (CVR) Final Result documented in this encounter Visit Diagnoses Not on filedocumented in this encounter Care Teams Butter Liquefier Relationship Specialty Start Date End Date Sal Jose MD [facility] [address] [phone] PCP - General Family Medicine 10/16/23 documented as of this encounter
--- OUTSIDE RECORDS SUMMARY | 2025-07-25 17:40 | XMS_ITS | Clinical Summary ---
Author Organization [facility] Address 20 [place] [address] Phone Care Team Providers Care Marine Engineering Technicians Name Role Phone Sal Jose MD Primary Care Provider [phone] Allergies Active Allergy Reactions Criticality Noted Date [...] 8 g 11 04/13/20 24 025 Discontinued Active Problems Problem Noted Date Diagnosed Date [...] Description 06/26/2025 Refill Pulmonary Critical [place] 136 [facility] [address] [place] [address] Ramon Nixon MD Medication Refill 06/22/2025 2:00 PM EST Office Visit Epilepsy & Seizures at 800 [facility] 800 [facility] [place] [address] Virgie Mast MD PhD 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); 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, not intractable, without status epilepticus (HC CODE); Chronic ischemic right MCA stroke 05/04/2025 1:00 PM EDT Follow Up Cardiovascular Medicine at 175 [facility] 175 [facility] [place] [address] Mike Hilario MD NSVT (nonsustained ventricular tachycardia) (HC Code) (HC CODE) (Primary Dx); Chronic ischemic right MCA stroke; Aneurysm of middle cerebral artery; Scleroderma (HC CODE); ILD (interstitial lung disease) (HC Code) (HC CODE); History of pulmonary embolism 04/28/2025 1:45 PM EDT Office Visit Stroke 800 [facility] [place] [address] Kristine Kelly MD PhD Chronic ischemic right [...] 136 [facility] [address] [place], [place] [address] Ramon Nixon MD 136 [facility] 302 [place] [phone] Ksenia Jain, 12/20/2025 1:30 PM EDT Office Visit [facility] Epilepsy & Seizures at 800 [facility] 800 [place] [address] Ricarda Craven, [place] 800 [place] [phone] 05/04/2026 1:45 PM EDT Office Visit Stroke 800 [facility] [place] [address] Kristine Kelly MD PhD 800 [place] [phone] 05/09/2026 1:00 PM EDT Follow Up Cardiovascular Medicine at 175 [facility] 175 [facility] THIRD FLOOR [place], [place] [address] Mike Hilario MD 175 [facility] 2 [place] [phone] 07/26/2026 11:40 AM EST Office Visit Epilepsy & Seizures at 800 [facility] 800 [facility] [place] [address] Virgie Mast MD PhD 800 [place] [phone] Health Maintenance Due Date Last Done Comments [...] history exists Covid-19 vaccine series ( - 2025-26 season) 2025 12/06/2021, 11/03/2020, 10/13/2020 Diabetes screening [...] QTC Interval 446 ms SRC EKG P [place]omkest 65 deg SRC EKG QRS [place]est 25 deg SRC EKG T Wave [place] 41 deg SRC EKG P-R Interval 162 [...] 136 - 144 mmol/L 07/23/2024 3:09 PM [facility] Potassium 4.2 3.3 - 5.3 mmol/L 07/23/2024 3:09 PM [facility] Chloride 105 98 - 107 mmol/L 07/23/2024 3:09 PM [facility] CO2 26 20 - 30 mmol/L 07/23/2024 3:09 PM [facility] Anion Gap 13 7 - 17 07/23/2024 3:09 PM [facility] Glucose 89 70 - 100 mg/dL 07/23/2024 3:09 PM [facility] BUN 13 8 - 23 mg/dL 07/23/2024 3:09 PM [facility] Creatinine 0.72 0.40 - 1.30 mg/dL 07/23/2024 3:09 PM [facility] Calcium 9.7 8.8 - 10.2 mg/dL 07/23/2024 3:09 PM [facility] BUN/Creatinine Ratio 18.1 8.0 - 23.0 07/23/2024 3:09 PM [facility] Total Protein 6.7 5.9 - 8.3 g/dL 024 3:09 PM [facility] Comment:As of 2023, th e reference interval for Total Protein has been changed from (6.6 to 8.7 g/dL) to (5.9 to 8.3 g/dL). Albumin 4.3 3.6 - 5.1 g/dL 07/23/2024 3:09 PM [facility] Comment:As of 2023, th e reference interval for Albumin has been changed from (3.6 to 4.9 g/dL) to (3.6 to 5.1 g/dL). Total Bilirubin 0.6 <=1.2 mg/dL 07/23/20 24 3:09 PM [facility] Alkaline Phosphatase 113 9 - 122 U/L 07/23/2024 3:09 PM [facility] Alanine Aminotransferase (ALT) 27 10 - 35 U/L 07/23/2024 3:09 PM [facility] Comment:Calcium dobesilate c an cause artificially low ALT results at therapeutic concentrations Aspartate Aminotransferase (AST) 23 10 - 35 U/L 07/23/2024 3:09 PM [facility] Globulin 2.4 2.0 - 3.9 g/dL 07/23/2024 3:09 PM [facility] Comment:As of 2023, e reference interval for Globulin has been changed from (2.3 to 3.5 g/dL) to (2.0 to 3.9 g/dL). A/G Ratio 1.8 1.0 - 2.2 07/23/2024 3:09 PM [facility] AST/ALT Ratio 0.9 Reference Range Not Established 07/23/2024 3:09 PM [facility] eGFR (Creatinine) >60 >=60 mL/min/1.73m2 07/23/2024 3:09 PM [facility] Comment: [facility] utilizes CKD-EPI Creatinine 2020 to report eGFR. Values < 60 mL/min/1.73 m2 may indicate CKD if present for more than three months AND creatinine is at steady state. The eGFR provides a rough estimate of kidney function. For further guidance, please refer to the CKD: Adult Male Infertility Specialist Signature pathway. Creatinine Delta 0.01 See Comment 3:09 PM [facility] Comment: Delta creatinine is [...] System LAB BLOOD ORDERABLES Evelin luis Result Performing Organization Address City/State/[facility] Co de Phone Number [facility] DEPARTMENT OF [facility]ORATORY MEDICINE [address] [place] [address], [facility] [phone] from Last 3 Months or Most Recently Relevant to Health Maintenance [place] [address] [address] [id number] MEDICAID [place] [address] [id number] MEDICAID [place] 1[place] [address] [facility] 1-[place] [address] [id number] MEDICAID [place]IC[place] 1[place] [address] [facility] Care Teams Marine Engineering Technicians Relationship Specialty Start Date End Date Sal Jose MD [address] [place] [phone] PCP - General Family Medicine 10/16/23
--- OUTSIDE RECORDS SUMMARY | 2025-07-25 17:40 | XMS_ITS | Encounter Summary ---
Author Organization [facility] and [facility] Address [address] [place] [phone] Care Team Providers Care Support Services Tech Name Role Phone Sal Jose MD Primary Care Provider Encounter Details Date Type Department Care Team (Late st Contact Info) Description 08/09/2014 Abstract [facility] Endocrinology at 175 [facility] 175 [place] [address] Emerita Beth MD 35 [place] [phone] Social History Tobacco Use Types Packs/Day Years [...] 136 [facility] [address] [place], [place] [address] Ramon Nixon MD 136 [facility] 302 [place] [phone] Ksenia Jain, 12/20/2025 1:30 PM EDT Office Visit [facility] Epilepsy & Seizures at 800 [facility] 800 [facility] [place] [address] Ricarda Craven, [place] 800 [place] [phone] 05/04/2026 1:45 PM EDT Office Visit Stroke 800 [place] [address] Kristine Kelly MD PhD 800 [place] [phone] 05/09/2026 1:00 PM EDT Follow Up Cardiovascular Medicine at 175 [facility] 175 [facility] THIRD FLOOR [place], [place] [address] Mike Hilario MD 175 [facility] 2 [place] [phone] 07/26/2026 11:40 AM EST Office Visit Epilepsy & Seizures at 800 [facility] 800 [place] [address] Virgie Mast MD PhD 800 [place] [phone] documented as of this encounter Visit Diagnoses Not on filedocumented in this encounter Care Teams Support Services Tech Relationship Specialty Start Date End Date Sal Jose MD [facility] [address] [phone] PCP - General Family Medicine 10/16/23 documented as of this encounter
--- OUTSIDE RECORDS SUMMARY | 2025-07-25 17:40 | XMS_ITS | Encounter Summary ---
Author Organization [facility] and [facility] Address [address] [place] [address] Care Team Providers Care Speech Therapy Assistant Name Role Phone Sal Jose MD Primary Care Provider [phone] Encounter Details Date Type Department Care Team (Late st Contact Info) Description 07/21/2024 Transcribed Orders [facility] Laboratory Specimens [address] [place] [address] System, Provider Not In CRST syndrome (HC [...] EST Office Visit Pulmonary Critical [place] [address] [address] Ramon Nixon MD [address] [place] [address] Ksenia Jain, RT 12/20/2025 1:30 PM EDT Office Visit Epilepsy & Seizures at [address] [place] [address] 800 [place] [address] Ricarda Craven, [place] 800 [place] [phone] 05/04/2026 1:45 PM EDT Office Visit Stroke [address] [place] [address] Kristine Kelly MD PhD [address] [place] [phone] 05/09/2026 1:00 PM EDT Follow Up Cardiovascular Medicine at [address] [place] [address] 175 [facility] THIRD FLOOR [place], [place] [address] Mike Hilario MD [address] [place] [phone] 07/26/2026 11:40 AM EST Office Visit Epilepsy & Seizures at [address] [place] [address] Virgie Mast MD PhD [address] [place] [phone] documented as of this encounter Results * Sedimentation rate (ESR) (07/23/2024 1:13 PM EST) Pathologist [facility] Sedimentation Rate (ESR) 12 0 - 20 mm/hr 07/23/2024 2:55 PM EST [facility] Blood Venipuncture / Unknown 07/23/2024 1:13 PM EST 07/23/2024 2:24 PM EST us Provider Not In System LAB BLOOD ORDERABLES Evelin smith Result [facility] [address] [place] [address] documented in this encounter Visit Diagnoses Diagnosis 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
--- OUTSIDE RECORDS SUMMARY | 2025-07-25 17:40 | XMS_ITS | Encounter Summary ---
Author Organization [facility] Address Unknown Care Team Providers Care Manager Storage Name Role Phone Sal Jose MD Primary Care Provider [phone] Encounter Details Date Type Department Care Team (Late st Contact Info) Description 11/27/2021 Scanned Document Pulmonary Critical [place] 136 [facility] 302 [place], [place] [address] External, Provider Social History Tobacco Use Types [...] 1:00 PM EST Office Visit Pulmonary Critical [place] 136 [facility] 302 [place] [address] Ramon Nixon MD 136 [facility] 302 [place] [address] Ksenia Jain, 12/20/2025 1:30 PM EDT Office Visit [facility] Epilepsy & Seizures at [address] 800 [facility] [place] [address] Ricarda Craven APRN 800 [place] [phone] 05/04/2026 1:45 PM EDT Office Visit Stroke 800 [place] [address] Kristine Kelly MD PhD 800 [facility] [place] [phone] 05/09/2026 1:00 PM EDT Follow Up Cardiovascular Medicine at 175 [facility] 175 [facility] [place] [address] Mike Hilario MD 175 [facility] 2 [place] [phone] 07/26/2026 11:40 AM EST Office Visit Epilepsy & Seizures at 800 [facility] 800 [place] [address] Virgie Mast MD PhD 800 [place] [phone] documented as of this encounter Visit Diagnoses Not on filedocumented in this encounter Care Teams Manager Storage Relationship Specialty Start Date End Date Sal Jose MD [address] [phone] PCP - General Family Medicine 10/16/23 documented as of this encounter
--- OUTSIDE RECORDS SUMMARY | 2025-07-25 17:40 | XMS_ITS | Patient Health Record ---
Author Organization [facility] Address [address] [place] [address] [address] [place], [place] [id number] Care Team Providers Care Cat Scanner Operator Name Role Phone Nain Stroud [phone] Allergies Allergen (clinical drug ingredient) Drug/Non Drug Allergy documented on EMR Reaction Allergy Type Onset Date Status morphine Morphine Sulfate Unknown Drug Allergy Active Penicillin Unknown Drug Allergy Active Reason For Referral No Information Medications Medication SIG (Take, Route, Frequency, Duration) Notes Start Date End Date Status Meloxicam Active Levothyroxine Sodium Active Mycophenolate Sodium Active Fluticasone Furoate-Vilanterol Active dilTIAZem HCl Active Ipratropium-Albuterol Active Diclofenac Sodium Ac tive Pentoxifylline ER Ac tive Sulfamethoxazole-TMP DS Active Gabapentin Active traMADol HCl Active Zolpidem Tartrate Ac tive Problems Problem Type SNOMED Code ICD Code Onset Dates Problem Status W/U Status Risk Notes Problem Dyskinesia of esophagus (00476902) Dyskinesia of esophagus (K22.4) Active confirmed Problem Progressive systemic sclerosis (931673342) 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
--- OUTSIDE RECORDS SUMMARY | 2025-07-25 17:40 | XMS_ITS | Encounter Summary ---
Author Organization [facility] Address Unknown Care Team Providers Care Online Marketing Director Name Role Phone Sal Jose MD Primary Care Provider [phone] Encounter Details Date Type Department Care Team (Late st Contact Info) Description 05/11/2024 Scanned Document Pulmonary Critical [place] 136 [facility] [address] [place] [address] Ramon Nixon MD 136 [facility] 302 [place] [phone] Social History Tobacco Use Types Packs/Day Years [facility] [address] [place], [place] [phone] Ramon Nixon MD 136 [facility] 302 [place] [address] Cristobal Ksenia Carly, RT 12/20/2025 1:30 PM EDT Office Visit Epilepsy & Seizures at [address] [address] Ricarda Craven, [place] [address] [place] [phone] 05/04/2026 1:45 PM EDT Office Visit Stroke [address] [place] [address] Kristine Kelly MD PhD [address] [place] [phone] 05/09/2026 1:00 PM EDT Follow Up Cardiovascular Medicine at [address] [place] [address] Mike Hilario MD [address] [place] [address] 2 [place] [phone] 07/26/2026 11:40 AM EST Office Visit Epilepsy & Seizures at [address] [address] Virgie Mast MD PhD [address] [place] [phone] documented as of this encounter Visit Diagnoses Not on filedocumented in this encounter Additional Health Concerns Assessment Noted Time PHQ-9 Depression Total Score: 0 04/07/20 2:31 PM EDT documented as of this encounter Care Teams Online Marketing Director Relationship Specialty Start Date End Date Sal Jose MD [facility] [address] [phone] PCP - General Family Medicine 10/16/23 documented as of this encounter
--- OUTSIDE RECORDS SUMMARY | 2025-07-25 17:40 | XMS_ITS | Encounter Summary ---
Author Organization [facility] Address Unknown Care Team Providers Care Laborer Driver Name Role Phone Sal Jose MD Primary Care Provider [phone] Encounter Details Date Type Department Care Team (Late st Contact Info) Description 11/19/2022 Scanned Document Pulmonary Critical [place] 136 [facility] 302 [place], [place] [address] External, Provider Social History Tobacco Use Types [...] 1:00 PM EST Office Visit Pulmonary Critical [place] 136 [facility] 302 [place] [address] Ramon Nixon MD 136 [facility] 302 [place] [phone] Ksenia Jain, 12/20/2025 1:30 PM EDT Office Visit [facility] at [address] 800 [facility] [place] [address] Ricarda Craven APRN 800 [place] [phone] 05/04/2026 1:45 PM EDT Office Visit Stroke 800 [place] [address] Kristine Kelly MD PhD 800 [place] [phone] 05/09/2026 1:00 PM EDT Follow Up Cardiovascular Medicine at 175 [facility] 175 [facility] [place] [address] Mike Hilario MD 175 [facility] 2 [place] [phone] 07/26/2026 11:40 AM EST Office Visit Epilepsy & Seizures at 800 [facility] 800 [place] [address] Virgie Mast MD PhD 800 [place] [phone] documented as of this encounter Visit Diagnoses Not on filedocumented in this encounter Care Teams Laborer Driver Relationship Specialty Start Date End Date Sal Jose MD [address] [phone] PCP - General Family Medicine 10/16/23 documented as of this encounter
--- OUTSIDE RECORDS SUMMARY | 2025-07-25 17:40 | XMS_ITS | Encounter Summary ---
Author Organization [facility] Address Unknown Care Team Providers Care Excavator Backhoe Operator Name Role Phone Sal Jose MD Primary Care Provider [phone] Reason for Referral * General (Routine) - New Request Specialty Diagnoses / Procedures Referred By Contac t Referred To Contact Pulmonary Disease Procedures Pulmonary Function Test ([facility]) Ramon Nixon MD [address] [place] [address] 302 [place] [address] Phone: tel: fax: Referral ID Status Reason Start Date Expiration Date V isits Requested Visits Authorized [id number] New Request 08/31/2024 08/31/2025 1 1 Encounter Details Date Type Department Care Team (Late st Contact Info) Description 08/31/2024 Scanned Document Pulmonary Critical [place] 136 [facility] 302 [place], [place] [phone] Ramon Nixon MD [address] [place] [address] 302 [place] [address] Social History Tobacco Use Types [...] [place] 136 [facility] [address] [place] [address] Ramon Nixon MD 136 [facility] 302 [place] [phone] Ksenia Jain, RT 12/20/2025 1:30 PM EDT Office Visit Epilepsy & Seizures at [address] [place] [address] Ricarda Craven, SQL APPLICATION DEVELOPER 800 [place] [phone] 05/04/2026 1:45 PM EDT Office Visit Stroke 800 [place] [address] Kristine Kelly MD PhD [address] [place] [phone] 05/09/2026 1:00 PM EDT Follow Up Cardiovascular Medicine at 175 [facility] 175 [facility] [place] [address] iMke Hilario MD [address] [facility] 2 [place] [phone] 07/26/2026 11:40 AM EST Office Visit Epilepsy & Seizures at 800 [facility] 800 [place] [address] Virgie Mast MD PhD [address] [place] [address] [place] [phone] documented as of this encounter Procedures Procedure [...] documented as of this encounter Care Teams Excavator Backhoe Operator Relationship Specialty Start Date End Date Sal Jose MD [address] [place] [phone] PCP - General Family Medicine 10/16/23 documented as of this encounter
--- OUTSIDE RECORDS SUMMARY | 2025-07-25 17:40 | XMS_ITS | Encounter Summary ---
Author Organization [facility] Address Unknown Care Team Providers Care Explosive Man Name Role Phone Sal Jose MD Primary Care Provider [phone] Encounter Details Date Type Department Care Team (Late st Contact Info) Description 08/13/2023 Scanned Document Pulmonary Critical [place] 136 [facility] 302 [place], [place] [phone] External, Provider Social History Tobacco Use Types [...] EST Office Visit Pulmonary Critical [place] 136 [facility] 302 [place] [address] Ramon Nixon MD 136 [facility] 302 [place] [phone] Ksenia Jain, 12/20/2025 1:30 PM EDT Office Visit [facility] at [address] [facility] [place] [address] Ricarda Craven APRN 800 [place] [phone] 05/04/2026 1:45 PM EDT Office Visit Stroke 800 [place] [address] Kristine Kelly MD PhD 800 [place] [phone] 05/09/2026 1:00 PM EDT Follow Up Cardiovascular Medicine at 175 [facility] 175 [facility] [place] [address] Mike Hilario MD 175 [facility] 2 [place] [phone] 07/26/2026 11:40 AM EST Office Visit Epilepsy & Seizures at [address] [facility] 800 [place] [address] Virgie Mast MD PhD 800 [place] [phone] documented as of this encounter Visit Diagnoses Not on filedocumented in this encounter Care Teams Explosive Man Relationship Specialty Start Date End Date Sal Jose MD [address] [phone] PCP - General Family Medicine 10/16/23 documented as of this encounter
--- OUTSIDE RECORDS SUMMARY | 2025-07-25 17:40 | XMS_ITS | Encounter Summary ---
Author Organization [facility] Address [address] [place] [phone] Care Team Providers Care Pelota Maker Name Role Phone Sal Jose MD Primary Care Provider [phone] Encounter Details Date Type Department Care Team (Late st Contact Info) Description 08/31/2024 Transcribed Orders [facility] [address] [place] [address] System, Provider Not In CRST syndrome (HC [...] EST Office Visit [place]monary Critical [place] [address] [address] Ramon Nixon MD [address] [place] [phone] Soares-Ksenia Keller, RT 12/20/2025 1:30 PM EDT Office Visit Epilepsy & Seizures at [address] [place] [address], [place] [address] Ricarda Craven, [place] 800 [place] [phone] 05/04/2026 1:45 PM EDT Office Visit Stroke [address] [place] [address] Kristine Kelly MD PhD [address] [place] [address], [place] [phone] 05/09/2026 1:00 PM EDT Follow Up Cardiovascular Medicine at [address] [place] [address] 175 [facility] [place] [address] Mike Hilario MD [address] [place] [phone] 07/26/2026 11:40 AM EST Office Visit Epilepsy & Seizures at [address] [place] [address], [place] [address] Virgie Mast MD PhD [address] [place] [phone] Scheduled Orders Name Type Priority Associated Diagnoses [...] documented as of this encounter Care Teams Pelota Maker Relationship Specialty Start Date End Date Sal Jose MD [address] [phone] PCP - General Family Medicine 10/16/23 documented as of this encounter
--- OUTSIDE RECORDS SUMMARY | 2025-07-25 17:40 | XMS_ITS | Clinical Summary ---
Author Organization [employer] Address [address] [place] [address] [address] [place] [address] Care Team Providers Care Auditor Appraiser Name Role Phone Cordell Saba Unavailable Unavailable [...] by mouth 2 times daily. 07/21/20 24 Active aspirin 81 MG EC tablet 1 [...] Pulmonary embolism 06/05/2012 Overview (07/29/2024): 1990- in [place] Primary hypertension 02/13/2012 Hypothyroidism 02/04/2012 Overview (07/29/2024): [...] 03/2023, 03/02/2019, Additional history exists COVID-19 Vaccine ( [...] Most Recently Relevant to Health Maintenance Insurance [facility] FULL MEDICARE 1-[address] [place] [address] HSN FULL MEDIC[place] [address] DENTAL - N FULL (MEDICAID) Care Teams Auditor Appraiser Relationship Specialty Start Date End Date Cordell Saba Health Navigator 08/12/24 CASSIDY DE LA FUENTE NPI ID: [id number] Address: [address] [place] [phone] Primary Care Physician [id number] Primary Care Provider 08/12/18
--- OUTSIDE RECORDS SUMMARY | 2025-07-25 17:40 | XMS_ITS | Patient Health Record ---
Author Organization [facility] Address [address] [place] [phone] Care Team Providers Care Railcar Switcher Name Role Phone Jayant Walker Primary Care Provider Venkatesh Mauro [phone] Allergies Allergen (clinical drug ingredient) Drug/Non Drug Allergy documented on EMR Reaction Allergy Type Onset Date Status morphine Morphine Unknown Drug Allergy Active Penicillin Unknown Drug Allergy Active Reason For Referral No Information Medications Medication SIG (Take, Route, Frequency, Duration) Notes Start Date End Date Status Montelukast Sodium 10 MG Tablet TAKE 1 TABLET BY MOUTH EVERY DAY AT NIGHT Oral; Duration: 90 Days Active traMADol HCl 50 MG Tablet TAKE 1 TABLET BY MOUTH TWICE A DAY NEEDED FOR PAIN Oral; Duration: 30 Days Active Aspirin 81 81 MG Tablet Delayed Release 1 tablet Orally Once a day; Duration: 30 day(s) 02/08/2025 Active Ambien 10 MG Tablet 1 tablet at bedtime as needed Orally Once a day 02/08/2025 Active Clopidogrel Bisulfate 75 MG Tablet TAKE 1 TABLET BY MOUTH EVERY DAY Oral; Duration: 90 Days Active Metoprolol Succinate ER 25 MG Tablet Extended Release 24 Hour TAKE 1 TABLET BY MOUTH 2 TIMES A DAY FOR 90 DAYS Oral; Duration: 90 Days Active Budesonide-Formoterol Fumarate 160-4.5 MCG/ACT Aerosol INHALE 2 PUFFS INTO THE LUNGS TWICE A DAY Inhalation; Duration: 30 Days Active Fenofibrate 145 MG Tablet TAKE 1 TABLET BY MOUTH EVERY DAY Oral; Duration: 90 Days Active Cetirizine HCl 10 MG Tablet 1 tablet Orally Once a day; Duration: 30 day(s) 02/08/2025 Active Vitamin B Complex - Capsule as directed Orally 02/08/2025 Active Pantoprazole Sodium 40 MG Tablet Delayed Release 1 tablet 1/2 to 1 hour before morning meal Orally Once a day; Duration: 30 days Please remind the patient to speak with the physician prescribing her clopidogrel before she starts to use the pantoprazole Thanks very much 02/08/2025 Active Diclofenac 1.25 % Patch 1 patch Externally Once a day 02/08/2025 Active Levothyroxine Sodium 50 MCG Tablet Oral; Duration: 90 Days Active Vitamin B 12 500 MCG Tablet 1 tablet Orally Once a day; Duration: 30 day(s) 02/08/2025 Active Levothyroxine Sodium 50 MCG Tablet TAKE 1 TABLET BY MOUTH EVERY DAY Oral; Duration: 90 Days Active Ventolin HFA 108 (90 Base) MCG/ACT Aerosol Solution 1 puff as needed Inhalation every 4 hrs 02/08/2025 Active Atorvastatin Calcium 80 MG Tablet Oral; Duration: 90 Days Active amLODIPine Besy-Benazepril HCl 5-10 MG Capsule Oral; Duration: 90 Days Active Metoprolol Succinate ER 25 MG Tablet Extended Release 24 Hour Oral; Duration: 90 Days Active Lidocaine 5 % Patch 1 patch remove after 12 hours Externally Once a day 02/08/2025 Active levETIRAcetam 500 MG Tablet 1 tablet Orally every 12 hrs; Duration: 30 day(s) 02/08/2025 Active Gabapentin 400 MG Capsule TAKE 1 CAPSULE BY MOUTH 3 TIMES DAILY. Oral; Duration: 30 Days Active Protonix 40 MG Tablet Delayed Release 1 tablet 1/2 to 1 hour before morning meal Orally Once a day; Duration: 30 day(s) 02/08/2025 Active Mycophenolate Mofetil 250 MG Capsule TAKE 5 CAPSULES BY MOUTH TWICE A DAY Oral; Duration: 90 Days Active Pentoxifylline ER 400 MG Tablet Extended Release 1 tablet with meals Orally Twice a day; Duration: 30 day(s) 02/08/2025 Active Albuterol Sulfate HFA 108 (90 Base) MCG/ACT Aerosol Solution Inhalation; Duration: 16 Days Active Albuterol Sulfate HFA 108 (90 Base) MCG/ACT Aerosol Solution INHALE 2 PUFFS INTO THE LUNGS EVERY 4 (FOUR) HOURS NEEDED FOR SHORTNESS OF BREATH Inhalation; Duration: 16 Days Active Silver sulfADIAZINE 1 % Cream APPLY TOPICALLY 2 TIMES A DAY FOR 10 DAYS APPLY A 1.5 MM THICKNESS. NEED INSURANCE External; Duration: 10 Days Active Immunizations Vaccine Route Administration Date Status Comme nts Influenza Unknown 05/26/2024 Administered Social History Tobacco Use: Social History Observation Description Date Details (start date - stop date) Never Smoker NA - NA Social History Drug/Alcohol: Social Info Question Answer Notes AUDIT-C (Standard) Did you have a drink containing alcohol in the past year? No Points 0 Interpretation Negative Tobacco Use: Social Info Question Answer Notes Tobacco Control (Standard) Tobacco use: Nonsmoker Additional Details Category Social Info Options Details Miscellaneous: Marital status: Occupation: retired Problems Problem Type SNOMED Code ICD Code Onset Dates Problem Status W/U Status Risk Notes Problem Colon cancer screening (606313707) Colon cancer screening (Z12.11) Active confirmed Problem Irregular bowel habits (541219536) Irregular bowel habits (R19.8) Active confirmed Problem Long-term current use of anticoagulant (363295975) Anticoagulant long-term use (Z79.01) Active confirmed Problem Systemic sclerosis (21488901) 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) Active confirmed Problem Gastroesophageal reflux disease (283151545) GERD without esophagitis (K21.9) Active confirmed Problem History of polyp of colon (situation) (353263874) History of colon polyps (Z86.0100) Active confirmed [...] N/A Encounters Encounter Location Date Provider Diagnosis [facility] [address] [place] [phone] 02/08/2025 Venkatesh Marsh History of colon gely yps Z86.0100 ; GERD without esophagitis K21.9 ; Colon cancer screening Z12.11 ; Anticoagulant long-term use Z79.01 ; Irregular bowel habits R19.8 and Scleroderma of esophagus M34.1 [facility] [address] [place] [phone] 04/21/2025 Venkatesh Marsh [facility] [address] [place] [phone] 02/08/2025 Venkatesh Marsh [facility] [address] [place] [phone] 02/08/20[facility] [address] [place] [address] 02/08/20[facility] [address] [place] [address] 02/08/20[facility] [address] [place] [address] 02/08/2025 Venkatesh Marsh Assessments Encounter Date Diagnosis [...] to speak with her stroke doctor at [facility] who prescribes her clopidogrel so as to be sure that is not contraindicated from their standpoint. I did recommend a follow-up upper endoscopy given the description of her previous endoscopies and recommendations from her fitting room inspector in [place], [place]. She is not having any [...] but was advised to speak with her [facility] physicians about those recommendations to be sure there is no contraindication to them. I advised her that she might need Lovenox for bridging while off the clopidogrel and pentoxifylline. However, I advised her that would be up to the physicians at [facility]. These procedures will be scheduled for her at some point in the Fall. I do not think they need to be done sooner from a clinical standpoint based on no worrisome symptoms at the present time. I wanted to leave enough time for us to get information and ultimate clearance from all of her physicians at [facility]. She clearly has comorbidities including pulmonary issues, coronary artery disease, and cerebrovascular disease. I advised her to try to get clearance letters and summaries of her medical issues from the [facility] physician such that we can share them with the medical staff and anesthesiologist at [facility] prior to her procedures. If it turns out that her [facility] physicians do not think she is stable [...] to speak with her stroke doctor at [facility] who prescribes her clopidogrel so as to be sure that is not contraindicated from their standpoint. I did recommend a follow-up upper endoscopy given the description of her previous endoscopies and recommendations from her fitting room inspector in [place], [place]. She is not having any [...] but was advised to speak with her [facility] physicians about those recommendations to be sure there is no contraindication to them. I advised her that she might need Lovenox for bridging while off the clopidogrel and pentoxifylline. However, I advised her that would be up to the physicians at [facility]. These procedures will be scheduled for her at some point in the Fall. I do not think they need to be done sooner from a clinical standpoint based on no worrisome symptoms at the present time. I wanted to leave enough time for us to get information and ultimate clearance from all of her physicians at [facility]. She clearly has comorbidities including pulmonary issues, coronary artery disease, and cerebrovascular disease. I advised her to try to get clearance letters and summaries of her medical issues from the [facility] physician such that we can share them with the medical staff and anesthesiologist at [facility] prior to her procedures. If it turns out that her [facility] physicians do not think she is stable for these procedures we can always postpone them to a later date. Roman was comfortable with this plan. Thank you again for allowing me to participate in Roman's care. I shall continue to keep you advised of her progress. 02/08/2025 Colon cancer screening (ICD-10 - Z12.11) Need names of your [facility] doctors and we will need letters with [...] to speak with her stroke doctor at [facility] who prescribes her clopidogrel so as to be sure that is not contraindicated from their standpoint. I did recommend a follow-up upper endoscopy given the description of her previous endoscopies and recommendations from her fitting room inspector in [place], [place]. She is not having any [...] but was advised to speak with her [facility] physicians about those recommendations to be sure there is no contraindication to them. I advised her that she might need Lovenox for bridging while off the clopidogrel and pentoxifylline. However, I advised her that would be up to the physicians at [facility]. These procedures will be scheduled for her at some point in the Fall. I do not think they need to be done sooner from a clinical standpoint based on no worrisome symptoms at the present time. I wanted to leave enough time for us to get information and ultimate clearance from all of her physicians at [facility]. She clearly has comorbidities including pulmonary issues, coronary artery disease, and cerebrovascular disease. I advised her to try to get clearance letters and summaries of her medical issues from the [facility] physician such that we can share them with the medical staff and anesthesiologist at [facility] prior to her procedures. If it turns out that her [facility] physicians do not think she is stable [...] to speak with her stroke doctor at [facility] who prescribes her clopidogrel so as to be sure that is not contraindicated from their standpoint. I did recommend a follow-up upper endoscopy given the description of her previous endoscopies and recommendations from her fitting room inspector in [place], [place]. She is not having any [...] but was advised to speak with her [facility] physicians about those recommendations to be sure there is no contraindication to them. I advised her that she might need Lovenox for bridging while off the clopidogrel and pentoxifylline. However, I advised her that would be up to the physicians at [facility]. These procedures will be scheduled for her at some point in the Fall. I do not think they need to be done sooner from a clinical standpoint based on no worrisome symptoms at the present time. I wanted to leave enough time for us to get information and ultimate clearance from all of her physicians at [facility]. She clearly has comorbidities including pulmonary issues, coronary artery disease, and cerebrovascular disease. I advised her to try to get clearance letters and summaries of her medical issues from the [facility] physician such that we can share them with the medical staff and anesthesiologist at [facility] prior to her procedures. If it turns out that her [facility] physicians do not think she is stable [...] to speak with her stroke doctor at [facility] who prescribes her clopidogrel so as to be sure that is not contraindicated from their standpoint. I did recommend a follow-up upper endoscopy given the description of her previous endoscopies and recommendations from her fitting room inspector in [place], [place]. She is not having any [...] but was advised to speak with her [facility] physicians about those recommendations to be sure there is no contraindication to them. I advised her that she might need Lovenox for bridging while off the clopidogrel and pentoxifylline. However, I advised her that would be up to the physicians at [facility]. These procedures will be scheduled for her at some point in the Fall. I do not think they need to be done sooner from a clinical standpoint based on no worrisome symptoms at the present time. I wanted to leave enough time for us to get information and ultimate clearance from all of her physicians at [facility]. She clearly has comorbidities including pulmonary issues, coronary artery disease, and cerebrovascular disease. I advised her to try to get clearance letters and summaries of her medical issues from the [facility] physician such that we can share them with the medical staff and anesthesiologist at [facility] prior to her procedures. If it turns out that her [facility] physicians do not think she is stable [...] to speak with her stroke doctor at [facility] who prescribes her clopidogrel so as to be sure that is not contraindicated from their standpoint. I did recommend a follow-up upper endoscopy given the description of her previous endoscopies and recommendations from her fitting room inspector in [place], [place]. She is not having any [...] but was advised to speak with her [facility] physicians about those recommendations to be sure there is no contraindication to them. I advised her that she might need Lovenox for bridging while off the clopidogrel and pentoxifylline. However, I advised her that would be up to the physicians at [facility]. These procedures will be scheduled for her at some point in the Fall. I do not think they need to be done sooner from a clinical standpoint based on no worrisome symptoms at the present time. I wanted to leave enough time for us to get information and ultimate clearance from all of her physicians at [facility]. She clearly has comorbidities including pulmonary issues, coronary artery disease, and cerebrovascular disease. I advised her to try to get clearance letters and summaries of her medical issues from the [facility] physician such that we can share them with the medical staff and anesthesiologist at [facility] prior to her procedures. 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 She describes removal of polyps [...] requiring previous upper endoscopies and dilations in [place], [place] Hypthyoidism--had Grave's disease--s/p s urgery Interstitial lung disease from scleroder ma--Career Development Coordinator at [facility] Sees Head Stock Transfer Clerk at [facility] for a sclerode rma-related heart issue Seizures GERD and esophageal strictur e due to esophageal dysmotility from scleroderma as described above Surgical History Surgery Date(Month/Year) Thyroidectomy/Parathyroidectomy BTL
--- OUTSIDE RECORDS SUMMARY | 2025-07-25 17:40 | XMS_ITS | Encounter Summary ---
Author Organization [facility] Address [address] [place] [phone] Care Team Providers Care Regional Truck Driver Name Role Phone Sal Jose MD Primary Care Provider [phone] Encounter Details Date Type Department Care Team (Late st Contact Info) Description 12/04/2023 Transcribed Orders [facility] Laboratory Specimens [address] [place] [address] System, Provider Not In CREST variant of [...] EST Office Visit Pulmonary Critical [place] [address] [facility] [address] [place], [place] [id number] Ramon Nixon MD [address] [place] [address] [address] [place] [phone] Ksenia Jain, 12/20/2025 1:30 PM EDT Office Visit [facility] at [address] [facility] [place][Note 2] [address] [place] [address] Ricarda Craven, [place] [address] [place] [phone] 05/04/2026 1:45 PM EDT Office Visit Stroke [address] [place] [address] Kristine Kelly MD PhD [address] [place] [phone] 05/09/2026 1:00 PM EDT Follow Up Cardiovascular Medicine at [address] [facility] [address] [facility] THIRD FLOOR [place], [place] [address] Mike Hilario MD [address] [place] [address] [address] [place] [phone] 07/26/2026 11:40 AM EST Office Visit Epilepsy & Seizures at [address] [facility] [place][Note 2] [address] [place] [address] Virgie Mast MD PhD [address] [place] [phone] documented as of this encounter Results * Sedimentation rate (ESR) (05/20/2024 12:53 PM EDT) Sedimentation Rate (ESR) 4 0 - 20 mm/hr 05/20/2024 1:59 PM EDT [facility] Blood Venipuncture / Unknown 05/20/2024 12:53 PM EDT 05/20/2024 1:31 PM EDT us Provider Not In System LAB BLOOD ORDERABLES Evelin smith Result [facility] [address] [place] [address], [facility] [phone] * (ABNORMAL) C-reactive protein (CRP) (04/15/2024 12:20 PM EDT) CRP, High Sensitivity 3.1(H) See comment mg/L 04/15/2024 3:42 PM EDT [facility] Comment: hs-CRP Risk [...] ORDERABLES Evelin l Result Performing Organization Address City/[facility]/ZIP Co de Phone Number [facility] [address] [place] [address] * (ABNORMAL) Sedimentation rate (ESR) (04/15/2024 12:20 PM EDT) Sedimentation Rate (ESR) 24(H) 0 - 20 mm/hr 04/15/2024 3:41 PM EDT [facility] Blood Venipuncture / Unknown 04/15/2024 12:20 PM EDT 04/15/2024 2:54 PM EDT us Provider Not In System LAB BLOOD ORDERABLES Evelin l Result [facility] [address] [place] [address] * (ABNORMAL) C-reactive protein (CRP) (03/17/2024 10:36 AM EDT) CRP, High Sensitivity 6.3(H) See comment mg/L 03/17/2024 11:47 AM EDT [facility] Comment: hs-CRP Risk [...] ORDERABLES Evelin l Result Performing Organization Address City/[facility]/ZIP Co de Phone Number [facility] [address] [place] [address] * (ABNORMAL) Sedimentation rate (ESR) (03/17/2024 10:36 AM EDT) Sedimentation Rate (ESR) 23(H) 0 - 20 mm/hr 03/17/2024 11:46 AM EDT [facility] Blood Venipuncture / Unknown 03/17/2024 10:36 AM EDT 03/17/2024 11:15 AM EDT us Provider Not In System LAB BLOOD ORDERABLES Evelin l Result Performing Organization Address [facility] Co de Phone Number [facility] [address] [place] [address] * (ABNORMAL) C-reactive protein (CRP) (02/20/2024 3:41 PM EDT) CRP, High Sensitivity 8.9(H) See comment mg/L 02/20/2024 4:36 PM EDT [facility] Comment: hs-CRP Risk [...] ORDERABLES Evelin l Result Performing Organization Address City/[facility] Co de Phone Number [facility] [address] [place] [address] * Sedimentation rate (ESR) (02/20/2024 3:41 PM EDT) Sedimentation Rate (ESR) 18 0 - 20 mm/hr 02/20/2024 7:04 PM EDT [facility] Blood Venipuncture / Unknown 02/20/2024 3:41 PM EDT 02/20/2024 4:04 PM EDT us Provider Not In System LAB BLOOD ORDERABLES Evelin l Result Performing Organization Address [facility] de Phone Number [facility] [address] [place] [address] * (ABNORMAL) C-reactive protein (CRP) (12/09/2023 1:52 PM EDT) CRP, High Sensitivity 4.4(H) See comment mg/L 12/09/2023 4:44 PM EDT [facility] Comment: hs-CRP Risk [...] ORDERABLES Evelin l Result Performing Organization Address City/[facility] Co de Phone Number [facility] [address] [place] [address] * Sedimentation rate (ESR) (12/09/2023 1:52 PM EDT) Sedimentation Rate (ESR) 10 0 - 20 mm/hr 12/09/2023 5:08 PM EDT [facility] Blood Venipuncture / Unknown 12/09/2023 1:52 PM EDT 12/09/2023 4:20 PM EDT us Provider Not In System LAB BLOOD ORDERABLES Evelin l Result Performing Organization Address 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
--- OUTSIDE RECORDS SUMMARY | 2025-07-25 17:40 | XMS_ITS | Encounter Summary ---
Author Organization [facility] Address Unknown Care Team Providers Care Clerical Support Name Role Phone Sal Jose MD Primary Care Provider [phone] Encounter Details Date Type Department Care Team (Late st Contact Info) Description 11/19/2022 Scanned Document [facility] Critical [place] 136 [facility] 302 [place], [place] [id number] External, Provider Social History Tobacco Use Types [...] 1:00 PM EST Office Visit Pulmonary Critical [place] 136 [facility] 302 [place] [address] Ramon Nixon MD 136 [facility] 302 [place] [phone] Ksenia Jain, 12/20/2025 1:30 PM EDT Office Visit [facility] [address] 800 [facility] [place] [address] Ricarda Craven APRN 800 [place] [phone] 05/04/2026 1:45 PM EDT Office Visit Stroke 800 [facility] [place] [address] Kristine Kelly MD PhD 800 [place] [phone] 05/09/2026 1:00 PM EDT Follow Up Cardiovascular Medicine at 175 [facility] 175 [facility] [place] [address] Mike Hilario MD 175 [facility] 2 [place] [phone] 07/26/2026 11:40 AM EST Office Visit Epilepsy & Seizures at 800 [facility] 800 [facility] [place] [address] Virgie Mast MD PhD 800 [place] [phone] documented as of this encounter Visit Diagnoses Not on filedocumented in this encounter Care Teams Clerical Support Relationship Specialty Start Date End Date Sal Jose MD [address] [phone] PCP - General Family Medicine 10/16/23 documented as of this encounter
--- OUTSIDE RECORDS SUMMARY | 2025-07-25 17:40 | XMS_ITS | Encounter Summary ---
Author Organization [facility] Address [address] [address] Phone Care Team Providers Care Subcontract Administrator Name Role Phone Sal Jose MD Primary Care Provider [phone] Encounter Details Date Type Department Care Team (Late Contact Info) Description 05/25/2024 Scanned Document [facility] - [address] [id number] Nain Cat MD [address] [place] [phone] Social History Tobacco Use Types Packs/Day [...] PM EST Office Visit [place] [address] [place] [address] Ramon Nixon MD 136 [facility] 302 [place] [phone] Ksenia Jain, RT 12/20/2025 1:30 PM EDT Office Visit Epilepsy & Seizures at 800 [facility] 800 [place] [address] Ricarda Craven, FRONT DESK COORDINATOR 800 [place] [phone] 05/04/2026 1:45 PM EDT Office Visit Stroke 800 [place] [address] Kristine Kelly MD PhD 800 [place] [phone] 05/09/2026 1:00 PM EDT Follow Up Cardiovascular Medicine at 175 [facility] 175 [facility] [place] [address] Mike Hilario MD 175 [facility] 2 [place] [phone] 07/26/2026 11:40 AM EST Office Visit Epilepsy & Seizures at 800 [facility] 800 [place] [address] Virgie Mast MD PhD 800 [place] [phone] documented as of this encounter Visit Diagnoses Not on filedocumented in this encounter Additional Health Concerns Assessment Noted Time PHQ-9 Depression Total Score: 0 04/07/20 24 2:31 PM EDT documented as of this encounter Care Teams Subcontract Administrator Relationship Specialty Start Date End Date Sal Jose MD [facility] [address] [address] PCP - General Family Medicine 10/16/23 documented as of this encounter
--- OUTSIDE RECORDS SUMMARY | 2025-07-25 17:40 | XMS_ITS | Encounter Summary ---
Author Organization [facility] Address Unknown Care Team Providers Care Audit Intern Name Role Phone Sal Jose MD Primary Care Provider [phone] Encounter Details Date Type Department Care Team (Late st Contact Info) Description 08/13/2023 Scanned Document [facility] [place] 136 [facility] 302 [place], [place] [address] External, Provider Social History Tobacco Use Types [...] 1:00 PM EST Office Visit Pulmonary Critical [place] 136 [facility] 302 [place] [address] Ramon Nixon MD 136 [facility] 302 [place] [phone] Ksenia Jain, 12/20/2025 1:30 PM EDT Office Visit [facility] [address] 800 [facility] [place] [address] Ricarda Craven APRN 800 [place] [phone] 05/04/2026 1:45 PM EDT Office Visit Stroke 800 [place] [place] [address] Kristine Kelly MD PhD 800 [place] [phone] 05/09/2026 1:00 PM EDT Follow Up Cardiovascular Medicine at 175 [facility] 175 [facility] [place] [address] Mike Hilario MD 175 [facility] 2 [place] [phone] 07/26/2026 11:40 AM EST Office Visit Epilepsy & Seizures at 800 [facility] 800 [place] [place] [address] Virgie Mast MD PhD 800 [place] [phone] documented as of this encounter Visit Diagnoses Not on filedocumented in this encounter Care Teams Audit Intern Relationship Specialty Start Date End Date Sal Jose MD [address] [phone] PCP - General Family Medicine 10/16/23 documented as of this encounter
--- OUTSIDE RECORDS SUMMARY | 2025-07-25 17:40 | XMS_ITS | Encounter Summary ---
Author Organization [facility] Address Unknown Care Team Providers Care Ground Intelligence Officer Name Role Phone Sal Jose MD Primary Care Provider [phone] Encounter Details Date Type Department Care Team (Late st Contact Info) Description 11/27/2021 Scanned Document [facility]monary Critical [place] 136 [facility] [address] [place], [place] [phone] Gaviota Rivera, OT Social History Tobacco Use [...] EST Office Visit Pulmonary Critical [place] 136 [facility] [address] [place], [place] [address] Ramon Nixon MD 136 [facility] 302 [place] [phone] Ksenia Jain, 12/20/2025 1:30 PM EDT Office Visit [facility] [address] 800 [facility] [place] [address] Ricarda Craven APRN 800 [place] [phone] 05/04/2026 1:45 PM EDT Office Visit Stroke 800 [place] [address] Kristine Kelly MD PhD 800 [place] [phone] 05/09/2026 1:00 PM EDT Follow Up Cardiovascular Medicine at 175 [facility] 175 [facility] [place] [address] Mike Hilario MD 175 [facility] 2 [place] [phone] 07/26/2026 11:40 AM EST Office Visit Epilepsy & Seizures at 800 [facility] 800 [place] [address] Virgie Mast MD PhD 800 [place] [phone] documented as of this encounter Visit Diagnoses Not on filedocumented in this encounter Care Teams Ground Intelligence Officer Relationship Specialty Start Date End Date Sal Jose MD [facility] [address] [phone] PCP - General Family Medicine 10/16/23 documented as of this encounter
== END 2025-07-25 14:08 | disposition home or self-care (01) ==
LOC: HO.MRI 14:07
PROVIDERS: Visit Provider Orthopaedic Surgery
DX: T18.2XXA Foreign body in stomach, initial encounter (principal); S83.241A Other tear of medial meniscus, current injury, right knee, initial encounter
CPT/HCPCS: 73721; 74018

== ENCOUNTER → 2025-07-25 14:15 | Outpatient (BNV) | payer MEDICARE, MEDICAID, SELFPAY | PROVIDERS: Visit Provider Radiology Diagnostic Radiology | DX: T18.2XXA Foreign body in stomach, initial encounter (principal) | CPT/HCPCS: 73721; 74018 ==